=== PATIENT | female | born 1995 | race Caucasian/White ===

== ENCOUNTER → 2017-08-13 12:23 | Outpatient (CLI) | payer MEDICAID, SELFPAY ==
--- NOTE | 2017-08-13 13:00 | MRI_ITS ---
STUDY: MRI BRAIN WITH AND WITHOUT CONTRAST REASON FOR EXAM: Female, 21 years old. 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 TECHNIQUE: Standardized multiplanar fat and water weighted pulse sequences were obtained. 7 ml of Gadavist contrast material was administered intravenously for the contrast portion of the examination. COMPARISON: None. FINDINGS: Normal size of the ventricles and extra-axial spaces for the patient's age. Normal white matter tracts of the supratentorial brain. Normal bilateral basal ganglia. Normal thalami. There is no extra-axial fluid accumulation. Normal flow voids within the major intracranial circulation suggesting patency by spin echo criteria. Normal venous enhancement. There is no enhancing intra-axial or extra-axial abnormality. Normal sella turcica, pituitary gland, infundibular stalk, optic chiasm and hypothalamus. Normal tectal plate and pineal gland. Normal midbrain, bri and medulla. Normal cerebellum. Normal basal cisterns. Normal bilateral temporal bones. Normal bilateral internal auditory canals. IMPRESSION: Normal unenhanced and enhanced MRI of the brain. Electronically Signed: Simon Nails MD at 9:17 EST Tel , Service support , STUDY: MRI ORBITS WITH AND WITHOUT CONTRAST REASON FOR EXAM: Female, 21 years old. 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 TECHNIQUE: Standardized fat and water weighted pulse sequences were obtained in all 3 orthogonal planes, pre-and post contrast administration. 7 ml of Gadavist contrast material was administered intravenously for the contrast portion of the examination. COMPARISON: 08/10/2016 FINDINGS: Normal bilateral globes. The right optic nerve is unremarkable. Again noted is the nonenhancing enlargement of the left optic nerve at the intracanalicular and intracranial segments with involvement of the left optic chiasm. Findings are stable since the prior examination. Normal bilateral intraconal and extraconal spaces. Normal bilateral extraocular muscles. Normal sella turcica, pituitary gland, infundibular stalk, and hypothalamus. Normal bilateral cavernous sinuses. Normal tectal plate and pineal gland. Normal flow voids within the major intracranial circulation suggesting patency by spin echo criteria. Normal size of the ventricles and extra-axial spaces for the patient's age. Normal white matter tracts of the supratentorial brain. Normal bilateral basal ganglia. Normal thalami. There is no extra-axial fluid accumulation. Normal midbrain, bri and medulla. Normal cerebellum. Normal basal cisterns. 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 Electronically Signed: Simon Nails MD at 9:17 EST Tel , Service support ,
== END ==
PROVIDERS: Family Provider Family Medicine; PCP Family Medicine
DX: H47.292 Other optic atrophy, left eye (principal); C72.30 Malignant neoplasm of unspecified optic nerve; Q85.01 Neurofibromatosis, type 1
CPT/HCPCS: 70543; A9585

== ENCOUNTER 2017-10-07 11:39 | Emergency (ER) | payer MEDICAID, SELFPAY ==
[2017-10-07 11:41] VITALS: BP 140/106; PULSE 107; RESP 16; TEMP 36.6; O2SAT 98; BMI 25.0
--- NOTE | 2017-10-07 11:57 | CT_ITS ---
STUDY: CT BRAIN WITHOUT CONTRAST REASON FOR EXAM: Female, 22 years old. DIZZY, LIGHTHEADED, ? SEIZURE RADIATION DOSAGE (If Supplied By Facility): CTDIvol = ( 44.99 ) mGy, DLP = ( 745.49 ) mGycm TECHNIQUE: Transaxial CT imaging of the brain was performed without administration of intravenous contrast material. Individualized dose optimization techniques were used for this CT. COMPARISON: None. FINDINGS: Normal soft tissue structures. Normal calvarium. Normal size ventricles and extra-axial spaces for the patient's age. Normal white matter tracts of the cerebral hemispheres. Normal basal ganglia and thalami. Normal brainstem. Normal cerebellum. There is no intracranial hemorrhage. There are no findings of an acute ischemic infarction. Normal visualized paranasal sinuses. CT/Brain/Head without Contrast IMPRESSION: Normal unenhanced CT scan of the brain. Electronically Signed: Hellen Oneill MD at 13:28 EDT Tel , Service support ,
--- NOTE | 2017-10-07 12:02 | RAD_ITS ---
STUDY: X-RAY - LEFT KNEE REASON FOR EXAM: Female, 22 years old. H/o seizures 2 days prior and pain in left knee since seizure TECHNIQUE: 4 view(s) of the knee. COMPARISON: None. FINDINGS: Normal visualized distal femur. Normal visualized proximal tibia and fibula. Normal proximal tibiofibular articulation. Normal medial femorotibial compartment. Normal lateral femorotibial compartment. Normal patellofemoral articulation. The soft tissue structures are unremarkable. RAD/Knee 4 or More Views IMPRESSION: Normal x-ray examination of the knee. Electronically Signed: Hellen Oneill MD at 13:56 EDT Tel , Service support ,
[2017-10-07 12:26] LABS: Absolute Lymphocyte Count 2.06 X10^3/ul (0.83-4.51); Absolute Neutrophil Count 5.9 X10^3/uL (2.0-7.7); Basophil# 0.05 X10^3/uL; Basophil% 0.5 % (0-1); Eosinophil# 0.12 X10^3/uL; Eosinophils% 1.3 % (0-5); Hemoglobin 16.1 g/dl (12.0-15.0); Lymphocyte # 2.06 X10^3/ul (4.0); Mean Corp Hgb Conc 34.3 g/gl (32-36); Mean Corpuscular Hgb 30.2 pg (27.0-32.0); Mean Corpuscular Volume 88.2 fL (81-99); Mean Platelet Vol. 10.1 fl (6.2-12.0); Monocyte# 1.19 X10^3/uL; Monocyte% 12.7 % (0-10); Platelet Count 221 K/mm3 (150-450); RBC Distribution Width CV 12.9 % (11.6-14.6); RBC Distribution Width SD 41.7 fl (35.1-43.9); Red Blood Count 5.33 M/mm3 (4.2-5.4); White Blood Count 9.4 K/mm3 (4.4-11.0)
[2017-10-07 12:32] LABS: POSITIVE COUNT NO; POSITIVE DIFFERENTIAL NO; POSITIVE MORPHOLOGY NO
[2017-10-07 12:41] LABS: Mucous, Urine 0 SEEN /hpf (<or=2+)
[2017-10-07 12:42] LABS: Anion Gap 8 (5-15); BUN 12 mg/dL (7-18); BUN/Creat Ratio 11.5 RATIO (10-20); Chloride 108 mmol/L (98-107); Creatinine, Serum 1.04 mg/dL (0.55-1.02); EST Glomerular Filtration Rate 70 mL/min (>60); Est Glom Filt Rate - Afr Amer 85 mL/min (>60); Estimated Creatinine Clearance 67.11 ml/min; Glucose 56 mg/dL (74-106); Potassium 3.7 mmol/L (3.5-5.1); Sodium Level 140 mmol/L (136-145)
[2017-10-07 12:43] LABS: Color, Urine Yellow (Yellow); Glucose, Dipstick Normal (Normal); Ketone-Dipstick Negative (Negative); Leukocyte Esterase-Dipstick 25 /ul (Negative); Nitrite-Dipstick Negative (Negative); Occult Blood-Urine 25 /ul (Negative); Protein-Dipstick Negative (Negative); Specific Gravity, Urine 1.015 (1.002-1.030); Urine Bilirubin Dipstick Negative (Negative); Urine Clarity Sl. Cloudy (Clear); Urine Urobilinogen Normal (Normal)
[2017-10-07] MEDS: 0.9% Normal Saline 1,000 ML 150 ML IV (12:44)
[2017-10-07] MEDS: Ondansetron 4 MG/2 ML Vial IV (12:44)
[2017-10-07 12:46] LABS: Pregnancy, Serum, hCG Quali. NEGATIVE Negative (0-9 Nonpreg)
[2017-10-07 12:49] LABS: Amorphous Sediment 2+; Bacteria 1+ /hpf (None Seen); Red Blood Cells-Urine 0-5 SEEN /hpf (0-5); Squamous Epithelial Cells - UA 0-5 SEEN /hpf (5-10); White Blood Cells 0-5 SEEN /hpf (0-5)
[2017-10-07 12:57] LABS: Amphetamine Urine VISTA NEGATIVE (<1000 ng/mL); Barbiturate Urine VISTA NEGATIVE (< 200 ng/mL); Benzodiazepine Urine VISTA POSITIVE (< 200 ng/mL); Cocaine Urine VISTA NEGATIVE (< 300 ng/mL); Ecstacy Urine VISTA NEGATIVE (< 500 ng/mL); Methadone Urine VISTA NEGATIVE (< 300 ng/mL); PCP Urine VISTA NEGATIVE (< 25 ng/mL); THC Urine VISTA NEGATIVE (< 50 ng/mL); Vista UDS pH Range 7
[2017-10-07] MEDS: proMETHazine 25 MG/ML Syringe 12.5 MG IV (14:10)
[2017-10-07 14:21] LABS: Bedside Glucose 91 mg/dL (70-110)
[2017-10-07 14:31] LABS: Chlamydia Trachomatis by PCR Negative (Negative); Neisserai gonorrhoeae by PCR Negative (Negative); Probe Check PASS; Sample Adequacy Control PASS; Specimen Processing Control PASS
[2017-10-07 14:38] VITALS: BP 121/79; PULSE 64; RESP 15; O2SAT 99
[2017-10-07] MEDS: Acetaminophen 500 MG Tablet 1000 MG PO (14:46)
--- NOTE | 2017-10-07 15:25 | ED.DCSUM_ITS ---
- ER Visit Summary Date of Service: 10/07/17 Chief Complaint: Possible seizure History of Present Illness: The patient is a 22 F with a history of neurofibromatosis. Patient reports that her friends came to her house 2 days ago and states that she was shaking all over and having a seizure. Patient had vomited and urinated on herself. She states they showered her off and left her at home alone with a 3-year-old. Patient states she had decreased energy the last 2 days and continues to feel nauseated. Complaint of pain to her left knee. Nursing staff reports she walks into the ER drinking iced coffee without difficulty. Physical Examination: Vital signs are unremarkable. Patient sitting upright in bed no acute distress. Head neck examination is unremarkable. Heart is regular rate and rhythm. Lung sounds are clear. Abdomen is soft nontender. Extremity examination does reveal medial left knee tenderness. There is no obvious effusion. She has normal range of motion. She has some abrasions noted to the extensor surface of the right elbow without bony tenderness. Neuro exam reveals normal strength and sensation throughout. Test Results: Left knee x-rays are unremarkable. CT head is normal. CBC was a hemoglobin is 16.1. Chemistry studies are significant for glucose of 56. Urinalysis is normal. Patency test negative. Tox screen is positive for benzos. Emergency Department Course and Treatment: Patient was given Zofran. She felt slightly shaky and with her blood sugar only being 56 she was given orange juice , cheese stick, and a sandwich. Patient states that she felt nauseated after eating that and was given a dose of Phenergan. Repeat BGT is 91. I spoke with Dr. Stock, as the patient does follow with Dr. Bryant. He asked that we patient on Keppra 500 mg twice daily. She is to follow-up in the office as an outpatient. Treatment Plan: [] Disposition: Discharge Impression: 1. Reported seizure 2. History of neurofibromatosis This note was generated with [employer] dictation software. It may contain incorrect words, spelling, and punctuation that were not noted in review of the chart prior to signing ED Disposition - Plan for ED Patient: Chief Complaint: General Illness Referrals: Olvin Dickey [Primary Care Provider] -
--- NOTE | 2017-10-07 15:26 | ED.DEP ---
ED Disposition - Plan for ED Patient: Disposition: Home or Assisted Living Chief Complaint: General Illness Instructions: ED Seizure New Onset Unk Cause Prescriptions: levETIRAcetam tablet [Keppra tablet] 500 mg PO BID #60 tablet Referrals: Wili Stock MD [STAFF PHYSICIAN] - As soon as possible
[2017-10-07] MEDS: levETIRAcetam 500 MG Tablet PO (15:49)
== END 2017-10-07 16:06 | disposition home or self-care (01) ==
PROVIDERS: Emergency Provider Emergency Medicine; Family Provider Family Medicine; PCP Family Medicine
DX: R56.9 Unspecified convulsions (principal); Q85.00 Neurofibromatosis, unspecified; M25.562 Pain in left knee; G43.909 Migraine, unspecified, not intractable, without status migrainosus; Z79.899 Other long term (current) drug therapy
CPT/HCPCS: 70450; 73564; 80048; 80307; 81001; 82962; 84703; 85025; 87491; 87591; 96361; 96374; 96375; 99284; J7030; A4216; J2405

== ENCOUNTER → 2017-10-18 15:19 | Outpatient (CLI) | payer MEDICAID, SELFPAY ==
[2017-10-18 17:13] LABS: Hematocrit 43.5 % (37-47); Hemoglobin 14.7 g/dl (12.0-15.0); Mean Corp Hgb Conc 33.8 g/gl (32-36); Mean Corpuscular Hgb 30.1 pg (27.0-32.0); Mean Corpuscular Volume 89.1 fL (81-99); Mean Platelet Vol. 11.2 fl (6.2-12.0); Platelet Count 216 K/mm3 (150-450); RBC Distribution Width CV 12.7 % (11.6-14.6); RBC Distribution Width SD 41.3 fl (35.1-43.9); Red Blood Count 4.88 M/mm3 (4.2-5.4); White Blood Count 7.7 K/mm3 (4.4-11.0)
[2017-10-18 17:19] LABS: Scan Indicated on CBC? Y/N NO
[2017-10-18 17:34] LABS: Hemoglobin A1c 4.7 % (4.2-6.3)
[2017-10-18 17:45] LABS: ALB/GLOB Ratio 1.3 RATIO (0.9-2.4); AST(SGOT) 18 U/L (15-37); Alanine Aminotransfer ALT/SGPT 16 U/L (13-56); Albumin, Serum 4.3 g/dL (3.2-5.0); Alkaline Phosphatase 62 U/L (45-117); Anion Gap 6 (5-15); BUN 7 mg/dL (7-18); BUN/Creat Ratio 9.4 RATIO (10-20); Calcium,Total 8.6 mg/dL (8.5-10.1); Chloride 111 mmol/L (98-107); Creatinine, Serum 0.75 mg/dL (0.55-1.02); EST Glomerular Filtration Rate 103 mL/min (>60); Est Glom Filt Rate - Afr Amer 125 mL/min (>60); Globulin 3.4 g/dL (2.2-4.2); Glucose 72 mg/dL (74-106); Potassium 3.7 mmol/L (3.5-5.1); Protein, Total 7.7 g/dL (6.4-8.2); Sodium Level 143 mmol/L (136-145); Thyroid Stim Hormone (TSH) 0.51 uIU/mL (0.358-3.74)
[2017-10-23 11:54] LABS: C-Peptide 1.9 ng/mL (1.1-4.4); KEPPRA (LEVETIRACETAM) 17.6 ug/mL (10.0-40.0)
== END ==
PROVIDERS: Family Provider Family Medicine; PCP Family Medicine; Visit Provider Family Medicine
DX: E16.2 Hypoglycemia, unspecified (principal); G40.409 Other generalized epilepsy and epileptic syndromes, not intractable, without status epilepticus
CPT/HCPCS: 80053; 80177; 83036; 84443; 84681; 85027

== ENCOUNTER 2017-11-09 23:19 | Emergency (ER) | payer MEDICAID, SELFPAY ==
[2017-11-09 23:20] VITALS: BP 136/90; PULSE 99; RESP 16; TEMP 36.9; O2SAT 99; BMI 26.5
--- NOTE | 2017-11-09 23:38 | ED.DCSUM_ITS ---
- ER Visit Summary Date of Service: 11/09/17 Chief Complaint: Seizure History of Present Illness: The patient is a 22 F with history of neurofibromatosis and new diagnosis of seizures presents to the emergency department with recurrent seizure. Patient states that she was seen here about a month ago. At that time she did have a seizure. She had an evaluation which is unremarkable. The patient was started on Keppra 500 mg twice a day. She states that she feels like the medication is making her more fatigued. Over the past 3 days, she has had some urinary frequency and flank pain. She thinks that she is also had 5 seizures. She states that she knows when they are going to happen. She states that she starts to shake and she is aware of it. Her friend witnessed it. They do not think that she lost consciousness. However, few days ago she also fell when she was getting up off the toilet and struck her head. The patient is scheduled to see neurology at [facility] on . She does follow with Dr. Silvana Moore here in the area, but has been unable to get him to see him. The patient is also on Topamax and Valium. Physical Examination: Vital signs reviewed General: Well-nourished, well-developed Head: Normocephalic, atraumatic Eyes: Pupils equal and reactive, extraocular muscles intact Neck, supple, no lymphadenopathy Heart: Regular rate and rhythm Respiratory: No distress, clear bilaterally Abdomen: Soft, nontender, nondistended, no peritoneal signs Back: Nontender Extremities: Nontender, no edema, no cords Skin: Normal color no rash Neuro: Alert and oriented, no focal or lateralizing deficits Test Results: [] Emergency Department Course and Treatment: It was difficult to determine if the patient was actually having breakthrough seizures versus pseudoseizure. She had no real loss of consciousness. She states that she did strike her head when she got up from the toilet 3 days ago and has had headaches since. She also has a history of migraine. I did obtain a head CT which is unremarkable. I discussed the patient with Dr. Stock. At this time, we are going to increase her Keppra to 750 mg twice a day. He did state that if she was having such frequent seizures, he would expect that her CPK will be elevated. This was normal. Her labs are unremarkable. Her urine shows no infection. She is not . She has been having some intermittent abdominal cramping. I am unsure if this is related to her medication change. Her abdomen is benign on examination. The patient will have her Keppra increased. I will start her on Bentyl for her abdominal cramping. She has follow-up in place next week at the [facility] for neurology. I do for this patient can safely be discharged. She has had no further seizure activity here. She will be discharged home. Treatment Plan: [] Disposition: Discharge Impression: 1. Breakthrough seizure 2. Abdominal cramping This note was generated with [employer] dictation software. It may contain incorrect words, spelling, and punctuation that were not noted in review of the chart prior to signing ED Disposition - Plan for ED Patient: Chief Complaint: Seizure Instructions: ED Seizure Recurrent Prescriptions: Dicyclomine HCl [Bentyl] 20 mg PO TIDAC #20 cap Levetiracetam [Keppra] 750 mg PO BID #60 tab Referrals: Olvin Dickey MD [Primary Care Provider] -
[2017-11-09 23:49] LABS: Absolute Lymphocyte Count 2.61 X10^3/ul (0.83-4.51); Absolute Neutrophil Count 5.4 X10^3/uL (2.0-7.7); Basophil# 0.03 X10^3/uL; Basophil% 0.3 % (0-1); Eosinophil# 0.17 X10^3/uL; Eosinophils% 1.9 % (0-5); Hematocrit 41.5 % (37-47); Hemoglobin 13.7 g/dl (12.0-15.0); Lymphocyte # 2.61 X10^3/ul (4.0); Lymphocyte % 28.5 % (19-41); Mean Corpuscular Hgb 29.5 pg (27.0-32.0); Mean Corpuscular Volume 89.4 fL (81-99); Mean Platelet Vol. 10.4 fl (6.2-12.0); Monocyte# 0.89 X10^3/uL; Monocyte% 9.7 % (0-10); Neutrophil # 5.43 X10^3/uL (2.7-7.7); Neutrophil % 59.3 % (47-70); Platelet Count 202 K/mm3 (150-450); RBC Distribution Width CV 13.3 % (11.6-14.6); Red Blood Count 4.64 M/mm3 (4.2-5.4); White Blood Count 9.2 K/mm3 (4.4-11.0)
[2017-11-09 23:50] LABS: POSITIVE COUNT NO; POSITIVE DIFFERENTIAL NO; POSITIVE MORPHOLOGY NO
[2017-11-09] MEDS: DiphenhydrAMINE 50 MG/ML Syringe 25 MG IV (23:53)
[2017-11-09] MEDS: 0.9% Normal Saline 1,000 ML 1000 ML IV (23:53)
[2017-11-09] MEDS: Ketorolac 30 MG/ML Syringe IV (23:54)
[2017-11-10 00:05] LABS: ALB/GLOB Ratio 1.4 RATIO (0.9-2.4); AST(SGOT) 14 U/L (15-37); Alanine Aminotransfer ALT/SGPT 15 U/L (13-56); Albumin, Serum 4.2 g/dL (3.2-5.0); Alkaline Phosphatase 56 U/L (45-117); Anion Gap 7 (5-15); BUN 10 mg/dL (7-18); BUN/Creat Ratio 14.1 RATIO (10-20); Calcium,Total 8.9 mg/dL (8.5-10.1); Chloride 111 mmol/L (98-107); Creatinine, Serum 0.71 mg/dL (0.55-1.02); EST Glomerular Filtration Rate 110 mL/min (>60); Est Glom Filt Rate - Afr Amer 133 mL/min (>60); Estimated Creatinine Clearance 89.27 ml/min; Glucose 85 mg/dL (74-106); Lipase 198 U/L (73-393); Potassium 3.9 mmol/L (3.5-5.1); Protein, Total 7.2 g/dL (6.4-8.2); Sodium Level 142 mmol/L (136-145)
[2017-11-10] MEDS: Ondansetron 4 MG/2 ML Vial IV (00:27)
[2017-11-10 00:30] LABS: CPK Total, Creatine Kinase 132 U/L (26-192)
[2017-11-10 00:37] LABS: Bacteria 0 SEEN /hpf (None Seen); Mucous, Urine 0 SEEN /hpf (<or=2+)
[2017-11-10 00:38] LABS: Color, Urine Yellow (Yellow); Glucose, Dipstick Normal (Normal); Ketone-Dipstick Negative (Negative); Leukocyte Esterase-Dipstick 25 /ul (Negative); Nitrite-Dipstick Negative (Negative); Occult Blood-Urine 150 /ul (Negative); Protein-Dipstick Negative (Negative); Urine Bilirubin Dipstick Negative (Negative); Urine Clarity Sl. Cloudy (Clear); Urine Urobilinogen Normal (Normal)
[2017-11-10 00:41] LABS: Internal QC Validated? YES +Cl - CLEAR BKGD; Pregnancy, Urine Negative Negative
[2017-11-10 00:46] LABS: Amorphous Sediment 1+; Red Blood Cells-Urine 0-5 SEEN /hpf (0-5); Squamous Epithelial Cells - UA 0-5 SEEN /hpf (5-10); Transitional Epithelial - Ur 0 SEEN /hpf (0-5); White Blood Cells 0-5 SEEN /hpf (0-5)
[2017-11-10 01:06] VITALS: BP 124/87; PULSE 74; RESP 14; O2SAT 98
--- NOTE | 2017-11-10 23:34 | CT_ITS ---
CT Head or Brain W/O Contrast INDICATION: SEIZURES FOR PAST 2 DAYS,HEADACHE,SHAKES,ELEVATED BP,SHIELDEDHX:SEIZURES,MIGRAINES COMPARISON: October 07, 2017 TECHNIQUE: Noncontrast axial CT examination of the brain. Radiation dose optimization applied. FINDINGS: The ventricular system is normal in size and symmetric. The cortical sulci, sylvian fissures, and basal cisterns are well seen. The melissa-white matter junction is distinct. There is no evidence of acute intracranial hemorrhage, mass effect, midline shift, or abnormal extra-axial collection. The calvarium is intact and the visualized paranasal sinuses and mastoid air cells are clear. CT/Brain/Head without Contrast IMPRESSION: No evidence of acute intracranial abnormality by noncontrast CT. In case of unexplained seizures, further evaluation with MRI may be helpful. at 0043 Reported and signed by: Jessenia Tomlinson MD Electronically Signed: Jessenia Tomlinson MD at 0:41 EDT Tel , Service support ,
== END 2017-11-10 01:06 | disposition home or self-care (01) ==
LOC: ED 23:52
PROVIDERS: Emergency Provider Emergency Medicine; Family Provider Family Medicine; PCP Family Medicine
DX: R56.9 Unspecified convulsions (principal); R10.9 Unspecified abdominal pain; Z79.899 Other long term (current) drug therapy
CPT/HCPCS: 70450; 80053; 81001; 81025; 82550; 83690; 85025; 96361; 96374; 96375; 99284; A4216

== ENCOUNTER 2017-11-20 22:41 | Emergency (ER) | payer MEDICAID, SELFPAY ==
[2017-11-20 22:43] VITALS: BP 172/124; PULSE 93; RESP 17; TEMP 37.2; O2SAT 97; BMI 25.4
[2017-11-20 22:47] VITALS: BP 166/99
[2017-11-20] MEDS: Ondansetron 4 MG/2 ML Vial IV (23:32)
[2017-11-20] MEDS: 0.9% Normal Saline 1,000 ML 125 ML IV (23:32)
[2017-11-20 23:42] LABS: Absolute Lymphocyte Count 2.52 X10^3/ul (0.83-4.51); Absolute Neutrophil Count 5.3 X10^3/uL (2.0-7.7); Basophil# 0.04 X10^3/uL; Basophil% 0.4 % (0-1); Eosinophils% 1.1 % (0-5); Hematocrit 39.9 % (37-47); Hemoglobin 13.6 g/dl (12.0-15.0); Lymphocyte # 2.52 X10^3/ul (4.0); Lymphocyte % 28.3 % (19-41); Mean Corp Hgb Conc 34.1 g/gl (32-36); Mean Corpuscular Hgb 30.6 pg (27.0-32.0); Mean Corpuscular Volume 89.9 fL (81-99); Mean Platelet Vol. 10.6 fl (6.2-12.0); Monocyte% 10.1 % (0-10); Neutrophil # 5.31 X10^3/uL (2.7-7.7); Neutrophil % 59.9 % (47-70); Platelet Count 204 K/mm3 (150-450); RBC Distribution Width CV 13.8 % (11.6-14.6); RBC Distribution Width SD 44.7 fl (35.1-43.9); Red Blood Count 4.44 M/mm3 (4.2-5.4); White Blood Count 8.9 K/mm3 (4.4-11.0)
[2017-11-20 23:43] LABS: POSITIVE COUNT NO; POSITIVE DIFFERENTIAL NO; POSITIVE MORPHOLOGY NO
[2017-11-20 23:58] LABS: ALB/GLOB Ratio 1.5 RATIO (0.9-2.4); AST(SGOT) 14 U/L (15-37); Alanine Aminotransfer ALT/SGPT 16 U/L (13-56); Albumin, Serum 4.2 g/dL (3.2-5.0); Alkaline Phosphatase 51 U/L (45-117); Anion Gap 7 (5-15); BUN 6 mg/dL (7-18); Calcium,Total 8.7 mg/dL (8.5-10.1); Chloride 111 mmol/L (98-107); Creatinine, Serum 0.67 mg/dL (0.55-1.02); EST Glomerular Filtration Rate 117 mL/min (>60); Est Glom Filt Rate - Afr Amer 142 mL/min (>60); Estimated Creatinine Clearance 99.39 ml/min; Globulin 2.8 g/dL (2.2-4.2); Glucose 84 mg/dL (74-106); Lipase 141 U/L (73-393); Potassium 3.7 mmol/L (3.5-5.1); Sodium Level 144 mmol/L (136-145)
[2017-11-21 00:04] LABS: Pregnancy, Serum, hCG Quali. NEGATIVE Negative (0-9 Nonpreg)
--- NOTE | 2017-11-21 00:18 | CT_ITS ---
STUDY: CT ABDOMEN AND PELVIS WITHOUT CONTRAST REASON FOR EXAM: Female, 22 years old. Abdominal pain, nausea and vomiting, elevated blood pressure RADIATION DOSAGE (If Supplied By Facility): CTDIvol = ( 6.16 ) mGy, DLP = ( 289.37 ) mGycm TECHNIQUE: Transaxial 2.5 mm images were obtained from the dome of the diaphragm to the symphysis pubis without oral contrast, and without intravenous contrast. Sagittal and coronal images were reconstructed. This examination is limited for the evaluation of gastrointestinal, solid organs and vascular structures due to the lack of intravenous and oral contrast. Individualized dose optimization techniques were used for this CT. COMPARISON: None. FINDINGS: The visualized lung bases are unremarkable. The visualized portions of the heart are within normal limits. Normal liver. Normal gallbladder and extrahepatic biliary system. Normal spleen. There is a splenule. Normal pancreas. Normal bilateral adrenal glands. Normal right kidney. Normal left kidney. Normal visualized stomach. Normal small intestine. Normal colon. The appendix is visualized and appears normal. Image [id number] series 2. Normal abdominal aorta. Normal inferior vena cava. Normal retroperitoneum. Decompressed urinary bladder. Normal visualized uterus and adnexa. Normal abdominal wall. Normal osseous structures. CT/Abdomen/Pelvis without Cont IMPRESSION: There is no acute abdomen and pelvic pathology. Electronically Signed: Rosa Maria Hanna MD at 1:03 EDT , Service support ,
[2017-11-21 00:33] LABS: Color, Urine Yellow (Yellow); Glucose, Dipstick Normal (Normal); Ketone-Dipstick 5 mg/dl (Negative); Leukocyte Esterase-Dipstick 500 /ul (Negative); Nitrite-Dipstick Negative (Negative); Occult Blood-Urine 50 /ul (Negative); Protein-Dipstick Negative (Negative); Specific Gravity, Urine 1.025 (1.002-1.030); Urine Bilirubin Dipstick Negative (Negative); Urine Clarity Clear (Clear); Urine Urobilinogen 1 mg/dl (Normal)
[2017-11-21 00:38] LABS: Mucous, Urine 1+ /hpf (<or=2+); Red Blood Cells-Urine 0-5 SEEN /hpf (0-5); Squamous Epithelial Cells - UA 0-5 SEEN /hpf (5-10); White Blood Cells 10-25 SEEN /hpf (0-5)
[2017-11-21 00:39] LABS: Bacteria RARE /hpf (None Seen)
[2017-11-21 00:57] VITALS: BP 142/87; PULSE 96; RESP 15; O2SAT 96
--- NOTE | 2017-11-21 01:08 | ED.VISSUMM ---
- ER Visit Summary Date of Service: 11/21/17 Chief Complaint: [Abdominal pain History of Present Illness: The patient is a 22 F [presents to the emergency department complaint of abdominal discomfort for about 2-3 weeks. Patient states that around noon she ate a [employer] a chicken sandwich and since then she did not been feeling well. Patient planes of nausea. Patient this evening was at [email or web address] again using their Wi-Fi when she began feeling nauseated and lightheaded. Patient presents the ER for evaluation. Patient states that she had her Keppra dose increased about 2 weeks ago she is not sure if that has something to do with her symptoms. Patient does have a history of seizure disorder and migraines. Patient denies urinary symptoms. Patient thinks it is possible she might be although she does take the Depakote shot every 3 months and has not had a period in years. Patient denies fever at home.] Physical Examination: HEENT-PERRLA, EOMI. Cranial nerves II through XII grossly intact. TMs clear. Mucous membranes moist. No adenopathy. Cardiovascular-regular rate and rhythm without murmur or ectopy Lungs-clear to auscultation, chest wall stable without crepitus or subcu emphysema Abdomen-normoactive bowel sounds, soft. Mild diffuse tenderness. There is no rebound, rigidity, or perineal signs. Negative Monroe sign. Extremities-intact ?4, normal range of motion, normal pulses, atraumatic[] Test Results: [CBC with differential obtained showed a white count of 8.9, hemoglobin 13.6, hematocrit 40, platelets 204. Chemistries unremarkable. LFTs were normal. Lipase was 141. Urinalysis positive for 500 leukocyte esterase and 10-25 WBCs as well as rare bacteria. HCG was negative. CT flank showed nothing acute.] Emergency Department Course and Treatment: [Patient was started on Bactrim and given Zofran in the emergency department.] Treatment Plan: [Patient will be given a perception for Bactrim and Zofran] patient also will be started on Prevacid. Disposition: [Discharged home in stable condition] Impression: [Abdominal pain-etiology uncertain UTI] This note was generated with [employer] software. It may contain incorrect words, spelling, and punctuation that were not noted in review of the chart prior to signing ED Disposition - Plan for ED Patient: Chief Complaint: Abd Pain Referrals: Olvin Dickey MD [Primary Care Provider] -
--- NOTE | 2017-11-21 01:11 | ED.DCSUM_ITS ---
- ER Visit Summary Date of Service: 11/21/17 Chief Complaint: [Abdominal pain History of Present Illness: The patient is a 22 F [presents to the emergency department complaint of abdominal discomfort for about 2-3 weeks. Patient states that around noon she ate a [employer] a chicken sandwich and since then she did not been feeling well. Patient planes of nausea. Patient this evening was at [employer] again using their Wi-Fi when she began feeling nauseated and lightheaded. Patient presents the ER for evaluation. Patient states that she had her Keppra dose increased about 2 weeks ago she is not sure if that has something to do with her symptoms. Patient does have a history of seizure disorder and migraines. Patient denies urinary symptoms. Patient thinks it is possible she might be although she does take the Depakote shot every 3 months and has not had a period in years. Patient denies fever at home.] Physical Examination: HEENT-PERRLA, EOMI. Cranial nerves II through XII grossly intact. TMs clear. Mucous membranes moist. No adenopathy. Cardiovascular-regular rate and rhythm without murmur or ectopy Lungs-clear to auscultation, chest wall stable without crepitus or subcu emphysema Abdomen-normoactive bowel sounds, soft. Mild diffuse tenderness. There is no rebound, rigidity, or perineal signs. Negative Monroe sign. Extremities-intact ?4, normal range of motion, normal pulses, atraumatic[] Test Results: [CBC with differential obtained showed a white count of 8.9, hemoglobin 13.6, hematocrit 40, platelets 204. Chemistries unremarkable. LFTs were normal. Lipase was 141. Urinalysis positive for 500 leukocyte esterase and 10-25 WBCs as well as rare bacteria. HCG was negative. CT flank showed nothing acute.] Emergency Department Course and Treatment: [Patient was started on Bactrim and given Zofran in the emergency department.] Treatment Plan: [Patient will be given a perception for Bactrim and Zofran] patient also will be started on Prevacid. Disposition: [Discharged home in stable condition] Impression: [Abdominal pain-etiology uncertain UTI] This note was generated with [employer] software. It may contain incorrect words, spelling, and punctuation that were not noted in review of the chart prior to signing ED Disposition - Plan for ED Patient: Chief Complaint: Abd Pain Referrals: Olvin Dickey MD [Primary Care Provider] -
--- NOTE | 2017-11-21 01:11 | ED.DEP ---
ED Disposition - Plan for ED Patient: Chief Complaint: Abd Pain Instructions: ED Abdominal Pain Unkn Cause, ED UTI Cystitis Female Prescriptions: Ondansetron [Zofran Odt] 4 mg PO Q8H PRN PRN #10 tab PRN Reason: Nausea Lansoprazole [Prevacid] 30 mg PO DAILY #30 cap Smz/Tmp Ds [Bactrim Ds] 1 tab PO BID #6 tab Referrals: Olvin Dickey MD [Primary Care Provider] - 3-5 Days
[2017-11-21 01:26] VITALS: BP 138/97; PULSE 92; RESP 15; O2SAT 99
[2017-11-21] MEDS: Smz/Tmp Ds Tablet 1 TABLET PO (01:26)
== END 2017-11-21 01:34 | disposition home or self-care (01) ==
LOC: ED 23:28
PROVIDERS: Emergency Provider Emergency Medicine; Family Provider Family Medicine; PCP Family Medicine
DX: N39.0 Urinary tract infection, site not specified (principal); R10.84 Generalized abdominal pain; G40.909 Epilepsy, unspecified, not intractable, without status epilepticus; G43.909 Migraine, unspecified, not intractable, without status migrainosus; Z79.899 Other long term (current) drug therapy; Z72.0 Tobacco use
CPT/HCPCS: 74176; 80053; 81001; 83690; 84703; 85025; 96361; 96374; 99285; J7030; J2405

== ENCOUNTER 2017-12-09 01:37 | Emergency (ER) | payer MEDICAID, SELFPAY ==
--- NOTE | 2017-12-09 01:37 | DT_ITS ---
This patient was seen during an EMR downtime December 09, 2017 - December 16, 2017. This patient may have a combination of paper and electronic documentation or all paper documentation. All documentation is viewable within the e-chart portion of [id number] for each patient visit.
[2017-12-09 01:38] VITALS: BP 161/108; PULSE 97; RESP 17; TEMP 37; O2SAT 98; BMI 24.5
--- NOTE | 2017-12-09 01:47 | CT_ITS ---
STUDY: CT ABDOMEN AND PELVIS WITHOUT CONTRAST REASON FOR EXAM: Female, 22 years old. Abdominal and back pain, nausea and vomiting x2 months. RADIATION DOSAGE (If Supplied By Facility): CTDIvol = ( 6.19 ) mGy, DLP = ( 302.88 ) mGycm TECHNIQUE: Transaxial 2.5 mm images were obtained from the dome of the diaphragm to the symphysis pubis without oral contrast, and without intravenous contrast. Sagittal and coronal images were reconstructed. This examination is limited for the evaluation of gastrointestinal, solid organs and vascular structures due to the lack of intravenous and oral contrast. Individualized dose optimization techniques were used for this CT. COMPARISON: CT abdomen pelvis 11/21/2017. FINDINGS: The visualized lung bases are unremarkable. The visualized portions of the heart are within normal limits. Normal liver. Normal gallbladder and extrahepatic biliary system. Normal spleen. Normal pancreas. Normal bilateral adrenal glands. Normal right kidney. Normal left kidney. There is no obstructive uropathy, obstructive renal or ureteral calculi. Normal visualized stomach. Fluid-filled small bowel without fold wall thickening or significant dilatation. Normal colon. The appendix is visualized and appears normal. Image 34 series 601 Normal abdominal aorta. Normal inferior vena cava. Normal retroperitoneum. Normal urinary bladder. Normal visualized uterus and adnexa Normal abdominal wall. Normal osseous structures. CT/Abdomen/Pelvis without Cont IMPRESSION: There is no acute abdomen and pelvic pathology. There is no significant interval change. Electronically Signed: Rosa Maria Hanna MD at 3:24 EDT , Service support ,
[2017-12-09] MEDS: Morphine 4 MG/ML Syringe IV (01:59)
[2017-12-09] MEDS: proMETHazine 25 MG/ML Syringe 6.25 MG IV (01:59)
[2017-12-09] MEDS: 0.9% Normal Saline 1,000 ML 1000 ML IV (01:59)
[2017-12-09 02:11] LABS: Absolute Lymphocyte Count 2.12 X10^3/ul (0.83-4.51); Absolute Neutrophil Count 6.5 X10^3/uL (2.0-7.7); Basophil# 0.04 X10^3/uL; Basophil% 0.4 % (0-1); Eosinophil# 0.08 X10^3/uL; Eosinophils% 0.8 % (0-5); Hematocrit 42.5 % (37-47); Hemoglobin 14.4 g/dl (12.0-15.0); Lymphocyte # 2.12 X10^3/ul (4.0); Lymphocyte % 21.6 % (19-41); Mean Corp Hgb Conc 33.9 g/gl (32-36); Mean Corpuscular Hgb 30.4 pg (27.0-32.0); Mean Corpuscular Volume 89.7 fL (81-99); Mean Platelet Vol. 10.9 fl (6.2-12.0); Monocyte# 1.08 X10^3/uL; Neutrophil # 6.47 X10^3/uL (2.7-7.7); Platelet Count 207 K/mm3 (150-450); RBC Distribution Width CV 13.3 % (11.6-14.6); RBC Distribution Width SD 43.5 fl (35.1-43.9); Red Blood Count 4.74 M/mm3 (4.2-5.4); White Blood Count 9.8 K/mm3 (4.4-11.0)
[2017-12-09 02:12] LABS: POSITIVE COUNT NO; POSITIVE DIFFERENTIAL NO; POSITIVE MORPHOLOGY NO
[2017-12-09 02:13] LABS: Bacteria 0 SEEN /hpf (None Seen)
[2017-12-09 02:15] LABS: Color, Urine Yellow (Yellow); Glucose, Dipstick Normal (Normal); Ketone-Dipstick Negative (Negative); Leukocyte Esterase-Dipstick 500 /ul (Negative); Nitrite-Dipstick Negative (Negative); Occult Blood-Urine 150 /ul (Negative); Protein-Dipstick 15 mg/dl (Negative); Specific Gravity, Urine 1.025 (1.002-1.030); Urine Bilirubin Dipstick Negative (Negative); Urine Clarity Clear (Clear); Urine Urobilinogen Normal (Normal)
[2017-12-09 02:18] LABS: ALB/GLOB Ratio 1.4 RATIO (0.9-2.4); AST(SGOT) 14 U/L (15-37); Alanine Aminotransfer ALT/SGPT 16 U/L (13-56); Albumin, Serum 4.2 g/dL (3.2-5.0); Alkaline Phosphatase 57 U/L (45-117); Anion Gap 8 (5-15); BUN 7 mg/dL (7-18); BUN/Creat Ratio 10.8 RATIO (10-20); Calcium,Total 8.5 mg/dL (8.5-10.1); Chloride 109 mmol/L (98-107); Creatinine, Serum 0.65 mg/dL (0.55-1.02); EST Glomerular Filtration Rate 121 mL/min (>60); Est Glom Filt Rate - Afr Amer 147 mL/min (>60); Estimated Creatinine Clearance 102.44 ml/min; Glucose 99 mg/dL (74-106); Lipase 114 U/L (73-393); Potassium 3.6 mmol/L (3.5-5.1); Protein, Total 7.2 g/dL (6.4-8.2); Sodium Level 140 mmol/L (136-145)
[2017-12-09 02:21] LABS: Pregnancy, Serum, hCG Quali. NEGATIVE Negative (0-9 Nonpreg)
[2017-12-09 02:22] LABS: Mucous, Urine 2+ /hpf (<or=2+); Red Blood Cells-Urine 0-5 SEEN /hpf (0-5); Squamous Epithelial Cells - UA > 100 SEEN /hpf (5-10); White Blood Cells 10-25 SEEN /hpf (0-5)
[2017-12-09 03:12] VITALS: BP 151/99; PULSE 92; RESP 16; O2SAT 97
--- NOTE | 2017-12-09 03:36 | ED.DCSUM_ITS ---
- ER Visit Summary Date of Service: 12/09/17 Chief Complaint: [] Abdominal pain History of Present Illness: The patient is a 22 F [] complaining of bilateral lower quadrant abdominal pain. Reports the pain was diffuse prior to arrival. Reports nausea and vomiting. Denies hematemesis. Denies likelihood of . Reports past medical history of seizure disorder, neurofibromatosis, anxiety, depression, migraine headaches. Physical Examination: [] Afebrile, vital signs stable. 22-year-old female no acute distress. Cardiovascular exam is regular rate and rhythm. Lungs are clear to auscultation. Abdomen is soft with mild diffuse tenderness. No guarding rebound noted. Test Results: [] CBC, BMP, LFTs, lipase all within normal limits. HCG negative. CT of the abdomen pelvis without contrast is negative. Emergency Department Course and Treatment: [] Patient given intravenous morphine, Phenergan, fluids. On serial exam she required 1 additional dose of pain medication. Her laboratory and diagnostic workup were negative and she was encouraged to follow with her primary care physician. Treatment Plan: [] Follow-up with primary care physician. Disposition: [] Discharge, stable. Impression: [] Abdominal pain, unknown etiology This note was generated with [employer] dictation software. It may contain incorrect words, spelling, and punctuation that were not noted in review of the chart prior to signing ED Disposition - Plan for ED Patient: Chief Complaint: Abd Pain Referrals: Olvin Dickey MD [Primary Care Provider] -
--- NOTE | 2017-12-09 03:36 | ED.DEP ---
ED Disposition - Plan for ED Patient: Disposition: Home or Assisted Living Chief Complaint: Abd Pain Instructions: ED Abdominal Pain Unkn Cause Referrals: Olvin Dickey MD [Primary Care Provider] -
[2017-12-09] MEDS: Morphine 2 MG/ML Syringe IV (03:48)
[2017-12-09 03:54] VITALS: BP 156/82; PULSE 100; RESP 16; O2SAT 97
== END 2017-12-09 03:55 | disposition home or self-care (01) ==
PROVIDERS: Emergency Provider Emergency Medicine; Family Provider Family Medicine; PCP Family Medicine
DX: R10.84 Generalized abdominal pain (principal); G40.909 Epilepsy, unspecified, not intractable, without status epilepticus; F41.9 Anxiety disorder, unspecified; F32.9 Major depressive disorder, single episode, unspecified; G43.909 Migraine, unspecified, not intractable, without status migrainosus; Q85.00 Neurofibromatosis, unspecified; Z79.899 Other long term (current) drug therapy
CPT/HCPCS: 74176; 80053; 81001; 83690; 84703; 85025; 99282; J7030; A4216

== ENCOUNTER 2017-12-29 01:56 | Emergency (ER) | payer MEDICAID, SELFPAY ==
[2017-12-29 01:57] VITALS: BP 144/92; PULSE 96; RESP 16; TEMP 36.7; O2SAT 99; BMI 25.1
[2017-12-29] MEDS: 0.9% Normal Saline 1,000 ML 1000 ML IV (02:58)
[2017-12-29] MEDS: Metoclopramide 10 MG/2 ML Vial IV (02:59)
[2017-12-29] MEDS: Ketorolac 30 MG/ML Syringe IV (03:00)
[2017-12-29 03:49] VITALS: PULSE 87; RESP 16; O2SAT 97
[2017-12-29 03:55] VITALS: BP 147/103; PULSE 72; RESP 15; O2SAT 98
--- NOTE | 2017-12-29 04:15 | ED.VISSUMM ---
- ER Visit Summary Date of Service: 12/29/17 Chief Complaint: [Headache] History of Present Illness: The patient is a 22 F [presents to the emergency department with complaint of a headache that started earlier today. Patient states she has a history of chronic migraines and sees Dr. Bryant] of neurology. Patient gets Botox injections and has missed her last appointment. Patient describes diffuse headache with photophobia and nausea that is typical of her migraines. Patient also states that she feels slightly short of breath and she thinks may be related to her anxiety and history of asthma. Patient denies any falls or head injuries. Patient denies any fever. Patient has not had any significant cough. Physical Examination: [HEENT-PERRLA, EOMI. Cranial nerves II through XII grossly intact. TMs clear. Mucous membranes moist. No adenopathy. Cardiovascular-regular rate and rhythm without murmur or ectopy Lungs-clear to auscultation, chest wall stable without crepitus or subcu emphysema Abdomen-normoactive bowel sounds, soft, nontender, no rebound or rigidity, no peritoneal signs. Neuro exam-finger to nose and heel to webber testing within normal limits, negative Romberg, negative pronator drift, fundi benign Extremities-intact ?4, normal range of motion, normal pulses, atraumatic] Test Results: [None indicated] Emergency Department Course and Treatment: [IV line was established and patient was given a liter normal saline fluid bolus as well as Reglan and Toradol and her headache resolved] Treatment Plan: [Patient follow-up with her neurologist within the next 3-5 days] Disposition: [Discharged home in stable condition] Impression: [Migrainous cephalgia-resolved] This note was generated with [employer] dictation software. It may contain incorrect words, spelling, and punctuation that were not noted in review of the chart prior to signing ED Disposition - Plan for ED Patient: Chief Complaint: General Illness Referrals: Olvin Dickey MD [Primary Care Provider] -
--- NOTE | 2017-12-29 04:18 | ED.DCSUM_ITS ---
- ER Visit Summary Date of Service: 12/29/17 Chief Complaint: [Headache] History of Present Illness: The patient is a 22 F [presents to the emergency department with complaint of a headache that started earlier today. Patient states she has a history of chronic migraines and sees Dr. Bryant] of neurology. Patient gets Botox injections and has missed her last appointment. Patient describes diffuse headache with photophobia and nausea that is typical of her migraines. Patient also states that she feels slightly short of breath and she thinks may be related to her anxiety and history of asthma. Patient denies any falls or head injuries. Patient denies any fever. Patient has not had any significant cough. Physical Examination: [HEENT-PERRLA, EOMI. Cranial nerves II through XII grossly intact. TMs clear. Mucous membranes moist. No adenopathy. Cardiovascular-regular rate and rhythm without murmur or ectopy Lungs-clear to auscultation, chest wall stable without crepitus or subcu emphysema Abdomen-normoactive bowel sounds, soft, nontender, no rebound or rigidity, no peritoneal signs. Neuro exam-finger to nose and heel to webber testing within normal limits, negative Romberg, negative pronator drift, fundi benign Extremities-intact ?4, normal range of motion, normal pulses, atraumatic] Test Results: [None indicated] Emergency Department Course and Treatment: [IV line was established and patient was given a liter normal saline fluid bolus as well as Reglan and Toradol and her headache resolved] Treatment Plan: [Patient follow-up with her neurologist within the next 3-5 days ] Disposition: [Discharged home in stable condition] Impression: [Migrainous cephalgia-resolved] This note was generated with [employer] dictation software. It may contain incorrect words, spelling, and punctuation that were not noted in review of the chart prior to signing ED Disposition - Plan for ED Patient: Chief Complaint: General Illness Referrals: Olvin Dickey MD [Primary Care Provider] -
--- NOTE | 2017-12-29 04:18 | ED.DEP ---
ED Disposition - Plan for ED Patient: Chief Complaint: General Illness Instructions: ED Headache Migraine Referrals: Olvin Dickey MD [Primary Care Provider] - Kelly Bryant MD [STAFF PHYSICIAN] - 3-5 Days
[2017-12-29 04:22] VITALS: BP 148/97; PULSE 69; RESP 15; O2SAT 97
== END 2017-12-29 04:28 | disposition home or self-care (01) ==
PROVIDERS: Emergency Provider Emergency Medicine; Family Provider Family Medicine; PCP Family Medicine
DX: G43.909 Migraine, unspecified, not intractable, without status migrainosus (principal); Z72.0 Tobacco use; Z79.899 Other long term (current) drug therapy
CPT/HCPCS: 96361; 96374; 96375; 99283; J7030; A4216

== ENCOUNTER 2018-01-04 20:09 | Emergency (ER) | payer MEDICAID, SELFPAY ==
[2018-01-04 20:10] VITALS: BP 133/102; PULSE 97; RESP 16; TEMP 36.7; O2SAT 98; BMI 24.0
--- NOTE | 2018-01-04 21:14 | ED.VISSUMM ---
- ER Visit Summary Date of Service: 01/04/18 Chief Complaint: [Injury left breast] History of Present Illness: The patient is a 22 F [presents the emergency department complaint of injuring her left wrist 2 days ago. Patient states that she was moving furniture and some hours in a [address] [place] as she got an eviction notice recently. Patient's now having pain in her left wrist. She denies any falls or direct trauma to it. Patient is right-hand dominant.] Physical Examination: [Left wrist-there is no soft tissue swelling, ecchymosis, or bruising. Patient has some mild diffuse tenderness on palpation. She is neurovascular intact distally with normal sensation and normal range of motion of all digits.] Test Results: [None indicated] I do not feel x-rays are indicated as she has had no direct trauma. And given her history of the injury I do not feel x-rays are indicated. Emergency Department Course and Treatment: [Patient will receive a Velcro wrist splint] Treatment Plan: [Patient advised use Advil which she is currently been taking. Patient to follow-up with her primary care physician in 7-10 days.] Disposition: [Discharged home in stable condition.] Impression: [Left wrist sprain] This note was generated with [employer] dictation software. It may contain incorrect words, spelling, and punctuation that were not noted in review of the chart prior to signing ED Disposition - Plan for ED Patient: Chief Complaint: Upper Extremity Injury Referrals: Olvin Dickey MD [Primary Care Provider] -
--- NOTE | 2018-01-04 21:16 | ED.DEP ---
ED Disposition - Plan for ED Patient: Chief Complaint: Upper Extremity Injury Instructions: ED Sprain Wrist Referrals: Olvin Dickey MD [Primary Care Provider] - 5-7 Days
[2018-01-04 21:39] VITALS: PULSE 94; RESP 14; O2SAT 99
== END 2018-01-04 22:01 | disposition home or self-care (01) ==
LOC: ED 21:47
PROVIDERS: Emergency Provider Emergency Medicine; Family Provider Family Medicine; PCP Family Medicine
DX: S63.502A Unspecified sprain of left wrist, initial encounter (principal); R56.9 Unspecified convulsions; Z72.0 Tobacco use; Z79.899 Other long term (current) drug therapy; X58.XXXA Exposure to other specified factors, initial encounter; Y93.E6 Activity, residential relocation; Y92.009 Unspecified place in unspecified non-institutional (private) residence as the place of occurrence of the external cause; Y99.8 Other external cause status
CPT/HCPCS: 99283

== ENCOUNTER 2018-02-12 01:29 | Emergency (ER) | payer MEDICAID, SELFPAY ==
[2018-02-12 01:30] VITALS: BP 150/103; PULSE 117; RESP 16; TEMP 36.9; O2SAT 98; BMI 26.1
--- NOTE | 2018-02-12 01:39 | RAD_ITS ---
STUDY: X-RAY - RIGHT WRIST REASON FOR EXAM: Female, 22 years old. GRABBED AN AIR CONDITIONER BY ITS CORD IT WAS FALLING OUT A WINDOW C/O PAIN RT 1ST METACARPAL and NAVICULAR AREAS TECHNIQUE: 4 view(s) of the wrist were obtained. COMPARISON: None. FINDINGS: Normal visualized distal radius and ulna. Normal radiocarpal articulation. Normal distal radioulnar articulation. Normal carpal bones. Normal carpal articulations. Normal carpometacarpal articulation of the thumb. Normal second through fifth carpometacarpal articulations. Normal visualized metacarpal bones. The soft tissue structures are unremarkable. RAD/Wrist min 3 Views IMPRESSION: Normal x-ray examination of the wrist. Electronically Signed: Maged Delarosa MD at 2:17 EDT Tel , Service support ,
--- NOTE | 2018-02-12 01:39 | RAD_ITS ---
STUDY: X-RAY - RIGHT HAND REASON FOR EXAM: Female, 22 years old. Trauma. Patient grabbed an air conditioner biophysical score as it was falling out of a window. Pain in the first metacarpal region and lateral wrist. TECHNIQUE: 3 view(s) of the hand. COMPARISON: X-ray wrist done today. FINDINGS: Normal radiocarpal articulation. Normal distal radioulnar joint. Normal visualized carpal bones. Normal carpal articulations Normal carpometacarpal articulation of the thumb. Normal second through fifth carpometacarpal joints. Normal metacarpi. Normal metacarpophalangeal joint of the thumb. Normal interphalangeal joint of the thumb. Normal proximal and distal phalanges of the thumb. Normal metacarpophalangeal joints of the second through fifth fingers. Normal proximal and distal interphalangeal joints of the second through fifth fingers. Normal phalanges of the second through fifth fingers. The soft tissue structures are unremarkable. RAD/Hand Min 3 Views IMPRESSION: Normal x-ray examination of the hand. Electronically Signed: Alex Dukes MD at 2:20 EDT , Service support ,
--- NOTE | 2018-02-12 02:11 | ED.VISSUMM ---
- ER Visit Summary Date of Service: 02/12/18 Chief Complaint: Right hand and wrist pain History of Present Illness: The patient is a 22 F presenting with right hand and wrist pain. Patient states she was trying to catch an air conditioner that was falling out a window. She states she grabbed the cord. States it pulled at her wrist and she has pain in the right hand and wrist. She also has pain in her back. No direct injury. No other complaints. Physical Examination: Vitals are stable. Patient is afebrile. Alert no acute distress. HEENT exam is unremarkable. Lungs are clear and equal bilaterally. Heart is regular rate and rhythm. Back nontender Extremities mild diffuse right wrist tenderness with painful range of motion. Skin is warm and dry. No focal neurologic deficit. Remainder of exam is unremarkable. Emergency Department Course and Treatment: Patient is given Tylenol. Ice pack was applied. X-ray of the right hand and wrist showed no acute process. She was given a Velcro wrist splint. Advised to follow-up with primary care physician. Advised return ED if worsening complaints. Disposition: Discharge home Impression: Right wrist sprain This note was generated with [employer] dictation software. It may contain incorrect words, spelling, and punctuation that were not noted in review of the chart prior to signing ED Disposition - Plan for ED Patient: Chief Complaint: Upper Extremity Injury Referrals: Olvni Dickey MD [Primary Care Provider] -
[2018-02-12] MEDS: Acetaminophen 500 MG Tablet 1000 MG PO (02:17)
--- NOTE | 2018-02-12 02:28 | ED.DEP ---
ED Disposition - Plan for ED Patient: Chief Complaint: Upper Extremity Injury Instructions: ED Sprain Wrist Referrals: Olvin Dickey MD [Primary Care Provider] -
[2018-02-12 02:43] VITALS: RESP 20
== END 2018-02-12 02:44 | disposition home or self-care (01) ==
LOC: ED 01:41
PROVIDERS: Emergency Provider Emergency Medicine; Family Provider Family Medicine; PCP Family Medicine
DX: S63.501A Unspecified sprain of right wrist, initial encounter (principal); F32.9 Major depressive disorder, single episode, unspecified; R56.9 Unspecified convulsions; Z72.0 Tobacco use; Z79.899 Other long term (current) drug therapy; X50.0XXA Overexertion from strenuous movement or load, initial encounter; Y93.89 Activity, other specified; Y92.89 Other specified places as the place of occurrence of the external cause; Y99.8 Other external cause status
CPT/HCPCS: 73110; 73130; 99283

== ENCOUNTER 2018-03-08 19:25 | Emergency (ER) | payer MEDICAID, SELFPAY ==
[2018-03-08 19:26] VITALS: BP 130/93; PULSE 104; RESP 18; TEMP 36.9; O2SAT 97; BMI 24.3
[2018-03-08] MEDS: DiphenhydrAMINE 50 MG/ML Syringe 25 MG IV (20:30)
[2018-03-08] MEDS: Metoclopramide 10 MG/2 ML Vial IV (20:30)
[2018-03-08] MEDS: Ketorolac 30 MG/ML Syringe IV (20:31)
--- NOTE | 2018-03-08 22:09 | ED.VISSUMM ---
- ER Visit Summary Date of Service: 03/08/18 Chief Complaint: Numerous symptoms including headache, nausea, document a fever to 101, nasal congestion and nonproductive cough History of Present Illness: The patient is a 22 F who has headache which she believes are migraine headache. She does complain of photophobia. She denies she denies neck pain or stiffness. She does report nonproductive cough. Denies chest pain. Denies vomiting or diarrhea. Denies dysuria, frequency, urgency or hematuria. Denies any skin lesions or rash. Please see written note for complete detail Physical Examination: Vital signs were noted and are marked for blood pressure 130/93 and heart rate 104. She appears in no distress. Head is atraumatic normocephalic. Pupils are equal round reactive. Extraocular muscles are intact. TMs are pearly white with landmarks noted. Nares patent with no drainage. Posterior pharynx without erythema or exudate. Uvula is midline. There is no dysphonia or dysphasia. Trachea is midline. There is no stridor with auscultation of the neck. There is no photophobia. There is no nuchal rigidity. Heart is regular without murmur, gallop or rub. S1 and S2 are normal. Lungs are clear to auscultation with good movement of air bilaterally. Abdomen soft nontender. 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 She is alert and oriented ?3. Motor spiral 5. Sensations intact. DTRs symmetric no clonus or Babinski. Cranial 2 through 12 intact. Test Results: None Emergency Department Course and Treatment: Patient received 30 Cooper grams Toradol IV push, 10 mg Reglan IV push and 25 mg of Benadryl IV push. I was informed at 2150 the patient's headache is resolved. Treatment Plan: Discharge to home Disposition: Discharged home with symptomatic treatment and note indicating she was seen in the emergency department Impression: 1. Migraine headache 2. Reported temperature 101.0?F 3. URI This note was generated with [employer] dictation software. It may contain incorrect words, spelling, and punctuation that were not noted in review of the chart prior to signing ED Disposition - Plan for ED Patient: Disposition: Home or Assisted Living Chief Complaint: General Illness Instructions: ED Headache Migraine, ED URI Viral Referrals: Olvin Dickey MD [Primary Care Provider] - 1 Week if not improving
[2018-03-08 22:19] VITALS: BP 136/78; PULSE 76; RESP 16; O2SAT 99
== END 2018-03-08 22:24 | disposition home or self-care (01) ==
PROVIDERS: Emergency Provider Emergency Medicine; Family Provider Family Medicine; PCP Family Medicine
DX: G43.909 Migraine, unspecified, not intractable, without status migrainosus (principal); J06.9 Acute upper respiratory infection, unspecified; R50.9 Fever, unspecified; E66.9 Obesity, unspecified; R56.9 Unspecified convulsions; F32.9 Major depressive disorder, single episode, unspecified; Z79.2 Long term (current) use of antibiotics; Z79.899 Other long term (current) drug therapy
CPT/HCPCS: 96374; 96375; 99283; J7030

== ENCOUNTER 2018-03-21 23:34 | Emergency (ER) | payer MEDICAID, SELFPAY ==
[2018-03-21 23:35] VITALS: BP 160/79; PULSE 95; RESP 18; TEMP 36.6; O2SAT 98; BMI 24.5
--- NOTE | 2018-03-22 00:12 | ED.VISSUMM ---
- ER Visit Summary Date of Service: 03/22/18 Chief Complaint: Multiple complaints History of Present Illness: The patient is a 22 F right upper dental pain for 3 weeks. Chronic migraines on Topamax. No falls or head injuries. Hot and cold sensitivities to tooth. States had a fever 3 weeks ago. Urine frequency for 1 week. States generalized weakness with lightheaded symptoms or history of anemia. She sees her PCP yearly states his blood check. Unclear her baseline hemoglobin. Concern of low blood counts. Double shots therefore last menstrual period unknown. 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 Has tolerated Toradol in the past. No history of gastric ulcers. No syncopal episodes. Also states he gets low blood glucose, no history of diabetes. Physical Examination: General: Alert and oriented ?3, no acute distress HEENT: Normocephalic, atraumatic. Moist mucosa membranes. Normal conjunctiva. Tender palpation tooth #2 no focal abscess, fillings present. Airway patent. Neck: supple, nontender. Cardiovascular: Regular rate and rhythm, no murmurs Respiratory: Normal breath sounds, symmetric, no distress Abdomen: Soft, nontender, nondistended Extremities: Nontender, no edema, pulses intact ?4 Neuro: no focal neurological deficits. Test Results: Hemoglobin 13.9. Blood glucose 105. UA leukocytes have had epithelials. Emergency Department Course and Treatment: Patient multiple concerns. She wanted hemoglobin check with anemia history. This is normal. She was Concern of her blood glucose which was normal. Started on penicillin for dental pain. She given Toradol which did help her dental pain and her headaches. With her urine symptoms will place on Keflex to cover both UTI and dental pain. Discussed with patient calling dentist for follow-up for definitive care. Treatment Plan: [] Disposition: Discharge Impression: 1. Dentalgia 2. UTI This note was generated with [employer] dictation software. It may contain incorrect words, spelling, and punctuation that were not noted in review of the chart prior to signing ED Disposition - Plan for ED Patient: Disposition: Home or Assisted Living Chief Complaint: Headache Diagnosis: Dentalgia, Headache, UTI (urinary tract infection) Instructions: ED Cephalgia Unspecified, ED Tooth Pain, ED UTI Cystitis Female Prescriptions: Cephalexin [Keflex] 500 mg PO Q6 #40 capsule Naproxen [Naprosyn] 500 mg PO BID #20 tablet Referrals: Olvin Dickey MD [Primary Care Provider] - 3-5 Days Additional Instructions: Call your dentist for follow-up for definitive care of tooth. Take medication as prescribed.
[2018-03-22] MEDS: Penicillin Vk 250 MG Tablet 500 MG PO (00:20)
[2018-03-22] MEDS: Ketorolac 30 MG/ML Syringe IM (00:20)
[2018-03-22 00:30] LABS: Bedside Glucose 105 mg/dL (70-110)
[2018-03-22 00:37] LABS: Red Blood Cells-Urine 0 SEEN /hpf (0-5)
[2018-03-22 00:41] LABS: Color, Urine Yellow (Yellow); Glucose, Dipstick Normal (Normal); Ketone-Dipstick Negative (Negative); Leukocyte Esterase-Dipstick 100 /ul (Negative); Nitrite-Dipstick Negative (Negative); Occult Blood-Urine 25 /ul (Negative); Protein-Dipstick 15 mg/dl (Negative); Urine Bilirubin Dipstick Negative (Negative); Urine Clarity Sl. Cloudy (Clear); Urine Urobilinogen 1 mg/dl (Normal); Urine pH 6.5 (5.0 - 8.0)
[2018-03-22 00:50] LABS: Hematocrit 40.6 % (37-47); Hemoglobin 13.9 g/dl (12.0-15.0); Mean Corp Hgb Conc 34.2 g/gl (32-36); Mean Corpuscular Hgb 30.6 pg (27.0-32.0); Mean Corpuscular Volume 89.4 fL (81-99); Mean Platelet Vol. 10.7 fl (6.2-12.0); Platelet Count 198 K/mm3 (150-450); RBC Distribution Width CV 13.2 % (11.6-14.6); Red Blood Count 4.54 M/mm3 (4.2-5.4); Scan Indicated on CBC? Y/N NO; White Blood Count 10.5 K/mm3 (4.4-11.0)
[2018-03-22 01:11] LABS: Bacteria 2+ /hpf (None Seen); Mucous, Urine 1+ /hpf (<or=2+); White Blood Cells 5-10 SEEN /hpf (0-5)
[2018-03-22 01:12] LABS: Squamous Epithelial Cells - UA 25-50 SEEN /hpf (5-10)
[2018-03-22 01:46] VITALS: PULSE 64; RESP 14; O2SAT 98
== END 2018-03-22 01:48 | disposition home or self-care (01) ==
PROVIDERS: Emergency Provider Emergency Medicine; Family Provider Family Medicine; PCP Family Medicine
DX: N39.0 Urinary tract infection, site not specified (principal); R51 Headache; K08.89 Other specified disorders of teeth and supporting structures; Z79.899 Other long term (current) drug therapy; Z72.0 Tobacco use
CPT/HCPCS: 81001; 82962; 85027; 96372; 99283

== ENCOUNTER 2018-04-02 22:10 | Emergency (ER) | payer MEDICAID, SELFPAY ==
[2018-04-02 22:11] VITALS: BP 130/90; PULSE 100; RESP 18; TEMP 36.5; O2SAT 98; BMI 24.5
--- NOTE | 2018-04-02 22:14 | RAD_ITS ---
STUDY: X-RAY - RIGHT ANKLE REASON FOR EXAM: Female, 22 years old. Laceration TECHNIQUE: 3 view(s) of the ankle. COMPARISON: None. FINDINGS: Normal visualized distal tibia and fibula. Normal medial and lateral malleoli. Normal tibiotalar articulation and ankle mortise. Normal visualized talus and calcaneus. The visualized subtalar, talonavicular, calcaneocuboid and tarsal articulations are normal. Possible posterior laceration at the heel. RAD/Ankle min 3 Views IMPRESSION: No acute bony injury of the ankle. Electronically Signed: Jerald Daigle DO at 22:39 EDT Tel [phone], Service support ,
--- NOTE | 2018-04-03 00:24 | ED.VISSUMM ---
- ER Visit Summary Date of Service: 04/03/18 Chief Complaint: Blunt trauma and laceration dorsal lateral surface right foot History of Present Illness: The patient is a 22 F who states she bumped her foot against the edge of the bed frame that was uncovered. She sustained a laceration. She does complain of severe pain. She denies paresthesia, anesthesia motors. She states she has significant discomfort with weightbearing. She has no other complaints. Immunization up-to-date. Physical Examination: There is a 3.5 cm laceration dorsal surface of the right foot. X-ray was obtained per nursing protocol. DP and PT pulses are palpable. There is no subungual hematoma noted of any of the toes. There is no pain to palpation over the lateral or medial malleolus. There is no pain the patient of the calcaneus. There is pain to palpation over the third and fourth metatarsal. Test Results: X-ray was obtained per nursing protocol and interpreted by me as negative for foreign body or fracture. Emergency Department Course and Treatment: X-ray per nurse protocol. The wound was anesthetized by local infiltration using 1% lidocaine. The wound was irrigated with normal saline. Using 5-0 Ethilon simple interrupted sutures were placed with good cosmesis hemostasis. Treatment Plan: Wound care Disposition: Discharged home in stable condition Impression: 1. Right foot pain secondary to contusion initial encounter 2. 3.5 cm laceration right foot This note was generated with [employer] dictation software. It may contain incorrect words, spelling, and punctuation that were not noted in review of the chart prior to signing ED Disposition - Plan for ED Patient: Disposition: Home or Assisted Living Chief Complaint: Laceration Instructions: ED Contusion Foot, ED Laceration Foot Referrals: Olvin Dickey MD [Primary Care Provider] - 10 Day for suture removal Additional Instructions: Clean laceration with peroxide and Q-tip 3 times a day then apply bacitracin ointment.
[2018-04-03 00:38] VITALS: BP 124/60; PULSE 81; RESP 18
== END 2018-04-03 00:40 | disposition home or self-care (01) ==
PROVIDERS: Emergency Provider Emergency Medicine; Family Provider Family Medicine; PCP Family Medicine
DX: S91.311A Laceration without foreign body, right foot, initial encounter (principal); S90.31XA Contusion of right foot, initial encounter; W22.8XXA Striking against or struck by other objects, initial encounter; Y93.9 Activity, unspecified; Y92.9 Unspecified place or not applicable; Z86.14 Personal history of Methicillin resistant Staphylococcus aureus infection; Z72.0 Tobacco use
CPT/HCPCS: 12002; 73610; 99284

== ENCOUNTER 2018-04-12 20:44 | Emergency (ER) | payer MEDICAID, SELFPAY ==
[2018-04-12 20:50] VITALS: BP 143/98; PULSE 97; RESP 16; TEMP 37.2; O2SAT 96; BMI 24.5
--- NOTE | 2018-04-12 21:03 | ED.VISSUMM ---
- ER Visit Summary Date of Service: 04/12/18 Chief Complaint: Suture removal History of Present Illness: The patient is a 22 F who needed her sutures removed. There are put in 1 week ago here. She tripped over her bed and lacerated her foot. She states there is been no drainage and it has been healing well. Physical Examination: Right foot exam reveals 7 sutures on the dorsal part of the foot. No bleeding, drainage or erythema noted. Test Results: None performed Emergency Department Course and Treatment: Patient had sutures removed. She tolerated this well. She will follow-up as needed Treatment Plan: [] Disposition: Discharge Impression: Suture removal Removal by ED physician This note was generated with [employer] dictation software. It may contain incorrect words, spelling, and punctuation that were not noted in review of the chart prior to signing ED Disposition - Plan for ED Patient: Chief Complaint: Suture Remv Referrals: Olvin Dickey MD [Primary Care Provider] -
--- NOTE | 2018-04-12 21:04 | ED.DEP ---
ED Disposition - Plan for ED Patient: Disposition: Home or Assisted Living Chief Complaint: Suture Remv Instructions: ED Wound Check Sutr Remove No Infec Referrals: Olvin Dickey MD [Primary Care Provider] -
== END 2018-04-12 21:17 | disposition home or self-care (01) ==
LOC: ED 21:15
PROVIDERS: Emergency Provider Emergency Medicine; Family Provider Family Medicine; PCP Family Medicine
DX: S91.311D Laceration without foreign body, right foot, subsequent encounter (principal); Z48.02 Encounter for removal of sutures; J45.909 Unspecified asthma, uncomplicated; F32.9 Major depressive disorder, single episode, unspecified; F41.9 Anxiety disorder, unspecified; R56.9 Unspecified convulsions; Z72.0 Tobacco use; Z79.899 Other long term (current) drug therapy; W22.8XXD Striking against or struck by other objects, subsequent encounter
CPT/HCPCS: 99282

== ENCOUNTER 2018-04-20 22:15 | Emergency (ER) | payer MEDICAID, SELFPAY ==
[2018-04-20 22:16] VITALS: BP 143/103; PULSE 115; RESP 18; TEMP 36.4; O2SAT 99; BMI 24.5
[2018-04-21] MEDS: Metoclopramide 10 MG/2 ML Vial IV (00:11)
[2018-04-21] MEDS: Ketorolac 30 MG/ML Syringe IV (00:13)
[2018-04-21 00:25] LABS: Bacteria 0 SEEN /hpf (None Seen); Mucous, Urine 0 SEEN /hpf (<or=2+)
[2018-04-21 00:30] LABS: Color, Urine Yellow (Yellow); Glucose, Dipstick Normal (Normal); Ketone-Dipstick Negative (Negative); Leukocyte Esterase-Dipstick 25 /ul (Negative); Nitrite-Dipstick Negative (Negative); Occult Blood-Urine 50 /ul (Negative); Protein-Dipstick 15 mg/dl (Negative); Specific Gravity, Urine 1.025 (1.002-1.030); Urine Bilirubin Dipstick Negative (Negative); Urine Clarity Sl. Cloudy (Clear); Urine Urobilinogen 1 mg/dl (Normal)
[2018-04-21 00:36] LABS: Internal QC Validated? YES +Cl - CLEAR BKGD; Pregnancy, Urine Negative Negative
[2018-04-21 00:52] LABS: Red Blood Cells-Urine 5-10 SEEN /hpf (0-5); Squamous Epithelial Cells - UA 50-100 SEEN /hpf (5-10); White Blood Cells 5-10 SEEN /hpf (0-5)
--- NOTE | 2018-04-21 02:09 | ED.DCSUM_ITS ---
History of Present Illness Chief Complaint: General Illness Informant: Patient Onset: Days - 2-3 Context: Gradual Onset Timing: Continuous Quality: migraine Location: bifrontal Current Severity: Severe Maximum Severity: Severe Worsened by: light, sound Relieved by: nothing Associated Symptoms: cold that my family gave me, suprapubic abd discomfort, ur freq - Past Medical History (1) Migraines Status: Chronic Past Medical History - Allergies and Home Meds Allergies/Adverse Reactions: Allergies acetaminophen [From Tylenol] Adverse Reaction (Verified 04/20/18 22:19) Unknown states cannot take with seizure meds diphenhydramine [From Benadryl] Adverse Reaction (Verified 04/20/18 22:19) Unknown states cannot take with seizure meds ibuprofen [From Motrin] Adverse Reaction (Verified 04/20/18 22:19) Unknown states cannot take with seizure meds Primary Care Physician: Olvin Dickey MD [Primary Care Provider] - Smoking Status: Current every day smoker Review of Systems General: Denies: Chills, Fever, Sweats Eyes: Denies: Visual changes - bilaterally, Diplopia ENT: Reports: Bilateral ear pain, Rhinorrhea - and congestion, Sore throat - mild Cardiovascular: Denies: Chest pain, Palpitations Respiratory: Reports: Cough. Denies: Dyspnea, Dyspnea on exertion Gastrointestinal: Reports: Abdominal pain, Nausea, Vomiting - AMs more. Denies: Diarrhea, Melena, Hematochezia Genitourinary: Reports: Frequency. Denies: Dysuria, Hematuria Musculoskeletal: Reports: Back pain - low middle. Denies: Neck pain, Swelling, Extremity Pain Skin: Denies: Rash Neurological: Reports: Parasthesia - bilat hands, similar to prior migraines. Denies: Headache, Weakness, Numbness Physical Exam Vital Signs/Narrative: Vital Signs Temp Pulse Resp BP Pulse Ox 04/20/18 22:16 97.5 F L 115 H 18 143/103 H 99 Inital Vital Signs reviewed: Yes General: Well nourished, Well developed, - - nad Head: Normocephalic, Atraumatic Eyes: Perrl, EOMI ENT: Moist mucous membranes, No rhinorrhea Neck: Supple - w/o meningismus, Nontender Cardiovascular: Regular rate, Regular rhythm, No murmurs Respiratory: No distress, CTA bilaterally, Chest nontender Abdomen: Soft, Nondistended, Normal bowel sounds, Tender - mild suprapubic only Back: Nontender, Normal Inspection Extremities: Nontender, No edema Skin: Normal color, No rash Neurological: Alert, Oriented x3, Cranial nerves II-XII grossly intact, Normal Strength, Normal Sensation Psychological: Normal affect Diagnostic/Tx/Re-eval Laboratory Tests 04/21/18 04/21/18 Range/Units 00:10 00:10 Urine Color Yellow (Yellow) Urine Clarity Sl. Cloudy (Clear) Urine pH 5.0 (5.0 - 8.0) Ur Specific [place] 1.025 (1.002-1.030) Urine Protein 15 H (Negative) mg/dl Urine Glucose (UA) Normal (Normal) mg/dl Urine Ketones Negative (Negative) mg/dl Urine Occult Blood 50 H (Negative) /ul Urine Nitrite Negative (Negative) Urine Bilirubin Negative (Negative) mg/dL Urine Urobilinogen 1 H (Normal) mg/dl Ur Leukocyte Esterase 25 H (Negative) /ul Urine RBC 5-10 SEEN (0-5) /hpf Urine WBC 5-10 SEEN (0-5) /hpf Ur Squamous Epith Cells 50-100 SEEN (5-10) /hpf Urine Bacteria 0 SEEN (None Seen) /hpf Urine Mucus 0 SEEN (<or=2+) /hpf Urine Test Negative Negative - Medical Decision Making Patient states that she has been vomiting and more so in the mornings. is negative. She has had migraines off and on but it has been worse in the past couple days, she has had a cold for 2 weeks or more, each family member in her household has successfully become ill with the same symptoms indicating that it is more likely viral. She was given Reglan and Toradol for her symptoms and is significant better. Her urinalysis shows not many white cells, and significant a number of epithelials, but I suspect she may have a UTI and I think it is reasonable to try her on a 3-day course of Bactrim to see if that helps her symptoms. She is comfortable going home and following up. ED Disposition - Plan for ED Patient: Disposition: Home or Assisted Living Chief Complaint: General Illness Diagnosis: Migraine headache, Viral URI with cough, Cystitis without hematuria Instructions: ED Headache Migraine, ED UTI Cystitis Female Prescriptions: Smz/Tmp Ds [Bactrim Ds] 1 tab PO BID #6 tab Referrals: Olvin Dickey MD [Primary Care Provider] - 1 Week if not improving
[2018-04-21] MEDS: Smz/Tmp Ds Tablet 1 TABLET PO (02:14)
[2018-04-21 02:19] VITALS: BP 127/84; PULSE 81; RESP 15; O2SAT 98
== END 2018-04-21 02:20 | disposition home or self-care (01) ==
PROVIDERS: Emergency Provider Emergency Medicine; Family Provider Family Medicine; PCP Family Medicine
DX: G43.909 Migraine, unspecified, not intractable, without status migrainosus (principal); J06.9 Acute upper respiratory infection, unspecified; R05 Cough; N30.90 Cystitis, unspecified without hematuria; F17.200 Nicotine dependence, unspecified, uncomplicated
CPT/HCPCS: 81001; 81025; 96374; 96375; 99284

== ENCOUNTER 2018-05-02 09:24 | Emergency (ER) | payer MEDICAID, SELFPAY ==
[2018-05-02 09:25] VITALS: BP 144/91; PULSE 101; RESP 17; TEMP 36.8; O2SAT 98; BMI 24.5
--- NOTE | 2018-05-02 09:43 | ED.VISSUMM ---
- ER Visit Summary Date of Service: 05/02/18 Chief Complaint: Cough History of Present Illness: The patient is a 22 F who presents with cough and an episode of hemoptysis. Patient states she has had a cough for 2 weeks. Patient states she has been coughing up some green sputum but today had an episode of hemoptysis. Patient states she coughed up approximately 1 teaspoonful of blood today. Patient has not had any further episodes of hemoptysis since that time. Patient denies any chest pain. Patient states she does feel short of breath. 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 Patient admits to some nausea and some myalgias. Patient also admits to some sinus pressure over her maxillary sinuses. Physical Examination: Vital signs are stable. Patient is afebrile. Patient is in no acute distress. Oral mucosa is pink and moist. Nasal mucosa is congested. There is tenderness over the maxillary sinuses bilaterally. Neck is supple. Trachea is midline. There is no JVD or lymphadenopathy noted. Heart was regular rate and rhythm. Lungs are clear and equal bilaterally. There is good respiratory effort noted. Abdomen is soft. Bowel sounds are normal. There is no tenderness. There is no rebound or guarding noted. The remaining physical exam is within normal limits. Emergency Department Course and Treatment: Prior records from her last visit were reviewed. Patient was given a 3-day course of Bactrim at that time for possible urinary tract infection. Patient was not treated for bacterial bronchitis at that time. Given the patient's duration of symptoms and an episode of hemoptysis today, I feel it is reasonable to treat the patient for possible bacterial infection with doxycycline. Patient was given a note for work for today. Patient was instructed to follow-up with her primary care physician in 5-7 days. Patient understood and was agreeable with the plan. All questions were answered. Disposition: Discharged home Impression: Acute bronchitis This note was generated with [employer] dictation software. It may contain incorrect words, spelling, and punctuation that were not noted in review of the chart prior to signing ED Disposition - Plan for ED Patient: Disposition: Home or Assisted Living Chief Complaint: Cough Diagnosis: Acute bronchitis Instructions: ED Bronchitis Asthmatic Prescriptions: Doxycycline Monohydrate 100 mg PO BID #14 cap Referrals: Olvin Dickey MD [Primary Care Provider] -
--- NOTE | 2018-05-02 09:47 | ED.DCSUM_ITS ---
- ER Visit Summary Date of Service: 05/02/18 Chief Complaint: Cough History of Present Illness: The patient is a 22 F who presents with cough and an episode of hemoptysis. Patient states she has had a cough for 2 weeks. Patient states she has been coughing up some green sputum but today had an episode of hemoptysis. Patient states she coughed up approximately 1 teaspoonful of blood today. Patient has not had any further episodes of hemoptysis since that time. Patient denies any chest pain. Patient states she does feel short of breath. 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 Patient admits to some nausea and some myalgias. Patient also admits to some sinus pressure over her maxillary sinuses. Physical Examination: Vital signs are stable. Patient is afebrile. Patient is in no acute distress. Oral mucosa is pink and moist. Nasal mucosa is jodie ested. There is tenderness over the maxillary sinuses bilaterally. Neck is supple. Trachea is midline. There is no JVD or lymphadenopathy noted. Heart was regular rate and rhythm. Lungs are clear and equal bilaterally. There is good respiratory effort noted. Abdomen is soft. Bowel sounds are normal. There is no tenderness. There is no rebound or guarding noted. The remaining physical exam is within normal limits. Emergency Department Course and Treatment: Prior records from her last visit were reviewed. Patient was given a 3-day course of Bactrim at that time for possible urinary tract infection. Patient was not treated for bacterial bronchitis at that time. Given the patient's duration of symptoms and an episode of hemoptysis today, I feel it is reasonable to treat the patient for possible bacterial infection with doxycycline. Patient was given a note for work for today. Patient was instructed to follow-up with her primary care physician in 5-7 days. Patient understood and was agreeable with the plan. All questions were answered. Disposition: Discharged home Impression: Acute bronchitis This note was generated with [employer] dictation software. It may contain incorrect words, spelling, and punctuation that were not noted in review of the chart prior to signing ED Disposition - Plan for ED Patient: Disposition: Home or Assisted Living Chief Complaint: Cough Diagnosis: Acute bronchitis Instructions: ED Bronchitis Asthmatic Prescriptions: Doxycycline Monohydrate 100 mg PO BID #14 cap Referrals: Olvin Dickey MD [Primary Care Provider] -
--- NOTE | 2018-05-05 11:07 | CM.ED ---
ED CALLBACK: Follow-up call placed to patient. Patient states she is still having blood in sputum, shortness of breath, and feels worse. Patient is speaking in complete sentences. No coughing or distress noted over the phone. She began her antibiotic on Saturday. She states she is going to try to get a ride to her PCP, in [place], I encouraged her to try her insurance vouchers, if she cannot get a ride. I did instruct the patient to come back to the ER if she is unable to get to her PCP and feels her symptoms are worse. Patient states understanding and declines any assistance at this time.
== END 2018-05-02 09:58 | disposition home or self-care (01) ==
PROVIDERS: Emergency Provider Emergency Medicine; Family Provider Family Medicine; PCP Family Medicine
DX: J20.9 Acute bronchitis, unspecified (principal); Z86.14 Personal history of Methicillin resistant Staphylococcus aureus infection; Z72.0 Tobacco use
CPT/HCPCS: 99282; A4216

== ENCOUNTER 2018-05-10 20:27 | Emergency (ER) | payer OTHER, SELFPAY ==
[2018-05-10 20:28] VITALS: BP 153/102; PULSE 97; RESP 18; TEMP 36.2; O2SAT 897; BMI 25.4
--- NOTE | 2018-05-10 20:37 | RAD_ITS ---
STUDY: X-RAY - LEFT ELBOW REASON FOR EXAM: Female, 22 years old. Fall. Pain. History of congenital abnormality. TECHNIQUE: 3 view(s) of the elbow. COMPARISON: None. FINDINGS: There is deformity of the elbow joint. 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 The soft tissue structures are unremarkable. 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 Electronically Signed: Juanjose Qureshi MD at 21:14 EDT , Service support ,
--- NOTE | 2018-05-10 20:37 | RAD_ITS ---
STUDY: X-RAY - LEFT WRIST REASON FOR EXAM: Female, 22 years old. Fall. Pain. History of congenital abnormality. TECHNIQUE: 3 view(s) of the wrist were obtained. COMPARISON: None. FINDINGS: There is hypoplasia of the distal ulna. There is slight subluxation of the carpus medially. Normal distal radioulnar articulation. Normal carpal bones. Normal carpal articulations. Normal carpometacarpal articulation of the thumb. Normal second through fifth carpometacarpal articulations. Normal visualized metacarpal bones. The soft tissue structures are unremarkable. 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 Electronically Signed: Juanjose Qureshi MD at 21:23 EDT , Service support ,
--- NOTE | 2018-05-10 20:37 | RAD_ITS ---
STUDY: X-RAY - LEFT RADIUS AND ULNA REASON FOR EXAM: Female, 22 years old. Left arm pain after fall. History of congenital abnormality. TECHNIQUE: 2 view(s) of the forearm. COMPARISON: None. FINDINGS: There is no demonstrated soft tissue swelling. There is bowing of the radius. 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 There is marked hypoplasia of the distal ulna. There is mild deformity of the elbow joint itself. 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 Electronically Signed: Juanjose Qureshi MD at 21:03 EDT , Service support ,
--- NOTE | 2018-05-10 20:47 | ED.DCSUM_ITS ---
- ER Visit Summary Date of Service: 05/10/18 Chief Complaint: Fall History of Present Illness: The patient is a 22 F presenting after fall. Patient states she slipped at work. She landed on her left upper extremity. She did not hit her head or lose consciousness. She has a chronic deformity to her left upper extremity secondary to surgery as a child. Denies other complaints. Physical Examination: Vitals are stable. Patient is afebrile. Alert no acute distress. HEENT exam is unremarkable. Neck is nontender Lungs are clear and equal bilaterally. Heart is regular rate and rhythm. Extremities left wrist, forearm and elbow diffuse tenderness, painful range of motion, normal distal pulse. Skin is warm and dry. No focal neurologic deficit. Remainder of exam is unremarkable. 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 Patient was given OxyIR x1 and a prescription for naproxen. She is given a sling and a Velcro wrist splint. She is advised to follow-up with [facility] care. Advised return to ED if worsening complaints. Disposition: Discharge home Impression: Left upper extremity contusion This note was generated with [employer] dictation software. It may contain incorrect words, spelling, and punctuation that were not noted in review of the chart prior to signing ED Disposition - Plan for ED Patient: Chief Complaint: Upper Extremity Injury Instructions: ED Contusion Upper Ext Prescriptions: Naproxen [Naprosyn] 500 mg PO BID PRN #20 tablet Referrals: [facility] [GROUP OF PHYSICIANS] - Olvin Dickey MD [Primary Care Provider] -
[2018-05-10] MEDS: oxyCODONE 5 MG Tablet PO (20:56)
--- NOTE | 2018-05-10 21:54 | ED.DEP ---
ED Disposition - Plan for ED Patient: Chief Complaint: Upper Extremity Injury Instructions: ED Contusion Upper Ext Prescriptions: Naproxen [Naprosyn] 500 mg PO BID PRN #20 tablet Referrals: Olvin Dickey MD [Primary Care Provider] - [facility] [GROUP OF PHYSICIANS] -
[2018-05-10 22:22] VITALS: PULSE 76; RESP 16; O2SAT 98
== END 2018-05-10 22:23 | disposition home or self-care (01) ==
PROVIDERS: Emergency Provider Emergency Medicine; Family Provider Family Medicine; PCP Family Medicine
DX: S50.12XA Contusion of left forearm, initial encounter (principal); S60.212A Contusion of left wrist, initial encounter; F41.9 Anxiety disorder, unspecified; Z72.0 Tobacco use; Z79.899 Other long term (current) drug therapy; W01.0XXA Fall on same level from slipping, tripping and stumbling without subsequent striking against object, initial encounter; Y93.89 Activity, other specified; Y92.89 Other specified places as the place of occurrence of the external cause; Y99.0 Civilian activity done for income or pay
CPT/HCPCS: 73080; 73090; 73110; 99284

== ENCOUNTER 2018-05-11 23:29 | Emergency (ER) | payer MEDICAID, SELFPAY ==
[2018-05-11 23:30] VITALS: BP 128/99; PULSE 91; RESP 18; TEMP 37; O2SAT 96; BMI 24.5
--- NOTE | 2018-05-11 23:50 | ED.VISSUMM ---
- ER Visit Summary Date of Service: 05/11/18 Chief Complaint: High blood pressure History of Present Illness: The patient is a 22 F presenting with elevated blood pressure. She states she checked her blood pressure at home and it was running high. She states she has felt tired today. She also complains of migraine. She states this started earlier today and was gradual in onset similar to her previous migraines. She has sensitivity to light. She denies trauma. She did fall yesterday but she did not hit her head. Denies other complaints. Physical Examination: Vitals are stable. Blood pressure 128/99. Patient is afebrile. Alert no acute distress. HEENT exam is unremarkable. Neck is supple. No meningismus Lungs are clear and equal bilaterally. Heart is regular rate and rhythm. Abdomen is soft nontender nondistended. Extremities are unremarkable. Skin is warm and dry. No focal neurologic deficit. Remainder of exam is unremarkable. Emergency Department Course and Treatment: Patient is given Reglan and Benadryl for her migraine. On reevaluation she is feeling improved. Repeat blood pressure is 124/105. She is advised to follow-up with her primary care physician for blood pressure recheck. Advised return to ED for any worsening complaints. Disposition: Discharge home Impression: Headache This note was generated with [employer] dictation software. It may contain incorrect words, spelling, and punctuation that were not noted in review of the chart prior to signing ED Disposition - Plan for ED Patient: Chief Complaint: Hypertension Instructions: ED Cephalgia Unspecified Referrals: Olvin Dickey MD [Primary Care Provider] -
[2018-05-11] MEDS: DiphenhydrAMINE 50 MG/ML Syringe 25 MG IV (23:56)
[2018-05-11] MEDS: Metoclopramide 10 MG/2 ML Vial 5 MG IV (23:58)
[2018-05-12 00:02] VITALS: BP 124/105; PULSE 82; RESP 16; O2SAT 98
--- NOTE | 2018-05-12 00:10 | ED.RN ---
LAURI TO GIVE BENADRYL PER DR. GALVAN.
[2018-05-12 01:01] VITALS: BP 135/90; PULSE 72; RESP 16; O2SAT 98
== END 2018-05-12 01:02 | disposition home or self-care (01) ==
LOC: ED 23:49
PROVIDERS: Emergency Provider Emergency Medicine; Family Provider Family Medicine; PCP Family Medicine
DX: R51 Headache (principal); Z72.0 Tobacco use; Z79.899 Other long term (current) drug therapy
CPT/HCPCS: 96374; 96375; 99283; A4216

== ENCOUNTER 2018-05-15 20:05 | Emergency (ER) | payer MEDICAID, SELFPAY ==
[2018-05-15 20:06] VITALS: BP 154/82; PULSE 91; RESP 16; TEMP 36.7; O2SAT 99; BMI 24.5
--- NOTE | 2018-05-15 21:02 | ED.DCSUM_ITS ---
- ER Visit Summary Date of Service: 05/15/18 Chief Complaint: Anxiety History of Present Illness: The patient is a 22 F who states that she feels anxious. She states that she had more stressors today at home. She was having some family issues. She stayed home from work. She tried her diazepam which was not working. She states that she has been having increase of her anxiety has having trouble getting into her doctor. He denies being suicidal or homicidal. Physical Examination: Vital signs reviewed. HEENT exam unremarkable. Heart is regular rate and rhythm without murmurs. Lungs are clear to auscultation. Abdomen is soft and nontender. Extremities reveal no edema. Skin exam normal. Neurologic exam normal. Patient is resting comfortably. She does not appear to be internally stimulated or overly anxious. Test Results: [] Emergency Department Course and Treatment: Patient was treated with Vistaril here. I will give her a prescription of Vistaril to take at home. She will need to call her PCP for follow-up for further evaluation. Treatment Plan: [] Disposition: Discharge Impression: Anxiety This note was generated with [employer] dictation software. It may contain incorrect words, spelling, and punctuation that were not noted in review of the chart prior to signing ED Disposition - Plan for ED Patient: Disposition: Home or Assisted Living Chief Complaint: Anxiety Instructions: ED Panic Attack Prescriptions: hydrOXYzine pamoate capsule [Vistaril] 50 mg PO TID PRN PRN #30 cap PRN Reason: Anxiety Referrals: Olvin Dickey MD [Primary Care Provider] -
[2018-05-15] MEDS: hydrOXYzine PAM 25 MG Capsule 50 MG PO (21:14)
[2018-05-15 21:15] VITALS: BP 142/70; PULSE 80; RESP 14; O2SAT 98
== END 2018-05-15 21:17 | disposition home or self-care (01) ==
PROVIDERS: Emergency Provider Emergency Medicine; Family Provider Family Medicine; PCP Family Medicine
DX: F41.9 Anxiety disorder, unspecified (principal); Z72.0 Tobacco use
CPT/HCPCS: 99283

== ENCOUNTER 2018-05-31 22:27 | Emergency (ER) | payer MEDICAID, SELFPAY ==
[2018-05-31 22:27] VITALS: BP 119/73; PULSE 84; RESP 16; TEMP 37.1; O2SAT 97; BMI 24.5
--- NOTE | 2018-05-31 23:16 | ED.DCSUM_ITS ---
- ER Visit Summary Date of Service: 05/31/18 Chief Complaint: Back pain History of Present Illness: The patient is a 22 F who presents for 3 weeks of back pain. Patient states she has diffuse bilateral back pain that is worse with bending over, picking things up and movement in general. She is tried Aleve, stretching and massage without improvement. She fell at work prior to onset, but landed on her left arm and did not note any injury to her back. However the back pain began after the fall. Patient has history of scoliosis. She has medications for seizures and depression. Physical Examination: Vital signs: afebrile, hemodynamically stable, no hypoxia on room air General: well nourished, well developed, in no distress Skin: warm, dry, no rash, no pallor HEENT: normocephalic and atraumatic; PERRL, EOMI, moist mucous membranes Cardiovascular: regular rate and rhythm without murmurs, no peripheral edema, 2+ pulses all distal extremities Respiratory: No increased work of breathing, lungs are clear to auscultation bilaterally, no rales, rhonchi or wheezing Abdominal: Abdomen is soft, nontender with normoactive bowel sounds, no guarding or rebound, no masses Back: No midline tenderness, deformities or step-offs. Diffuse tenderness to palpation of the paraspinal musculature in the thoracolumbar region. No rash. Normal gait. MSK: Moves all extremities, no deformities, normal strength Neuro: Awake and alert, oriented ?4. No facial droop, sensation and motor func tion intact and symmetric Test Results: [] Emergency Department Course and Treatment: Patient presents with diffuse back pain for 3 weeks, with an exam showing muscular tenderness diffusely in the back. She has no history that would be concerning for epidural abscess or hematoma. No history of IV drug use. No urinary or bowel incontinence or retention, no saddle anesthesia, no weakness in the legs. No significant mechanism of trauma, and given the diffuse paraspinal nature of the pain with no point tenderness in the spine, x-ray was not performed as this would be unlikely to be a fracture or dislocation. She was given a dose of Flexeril and ibuprofen for pain. She is out of her diazepam, and she states she will be able to get it filled again for several months, thus I prescribed the Flexeril. I told her she cannot take diazepam and Flexeril at the same time, as it will be overly sedating. Patient has ibuprofen listed as an allergy, however patient has taken it previously and also takes Aleve without difficulty. She does not have a true allergy to ibuprofen. She was given a prescription for Flexeril and ibuprofen and discharged home. Treatment Plan: [] Disposition: [] Impression: Lumbosacral strain This note was generated with [email or web address] dictation software. It may contain incorrect words, spelling, and punctuation that were not noted in review of the chart prior to signing ED Disposition - Plan for ED Patient: Chief Complaint: Back Referrals: Olvin Dickey MD [Primary Care Provider] -
--- NOTE | 2018-05-31 23:16 | ED.DEP ---
ED Disposition - Plan for ED Patient: Disposition: Home or Assisted Living Chief Complaint: Back Instructions: ED Sprain Strain Lumbar Prescriptions: Ibuprofen [Ibu] 400 mg PO 4X/DAY PRN PRN #20 tab PRN Reason: Pain Cyclobenzaprine [Flexeril] 5 mg PO TID PRN #15 tab PRN Reason: Muscle Spasm Referrals: Olvin Dickey MD [Primary Care Provider] - As soon as possible Additional Instructions: You may use Aleve or ibuprofen as needed for your back pain. Do not take them both at the same time, as they are similar medications. You may use the Flexeril for muscle spasm, but do not take it at the same time as your Valium. If you have any worsening of your condition or any new concerning symptoms, please return immediately to the emergency department for another evaluation.
[2018-05-31] MEDS: Ibuprofen 600 MG Tablet PO (23:27)
[2018-05-31 23:30] VITALS: PULSE 82; RESP 16; O2SAT 99
== END 2018-05-31 23:32 | disposition home or self-care (01) ==
PROVIDERS: Emergency Provider Emergency Medicine; Family Provider Family Medicine; PCP Family Medicine
DX: S39.012A Strain of muscle, fascia and tendon of lower back, initial encounter (principal); M41.9 Scoliosis, unspecified; R56.9 Unspecified convulsions; F32.9 Major depressive disorder, single episode, unspecified; Z79.899 Other long term (current) drug therapy; W19.XXXA Unspecified fall, initial encounter; Y93.89 Activity, other specified; Y92.89 Other specified places as the place of occurrence of the external cause; Y99.0 Civilian activity done for income or pay
CPT/HCPCS: 99283

== ENCOUNTER 2018-06-19 22:54 | Emergency (ER) | payer MEDICAID, SELFPAY ==
[2018-06-19 22:55] VITALS: BP 143/95; PULSE 114; RESP 16; TEMP 36.9; O2SAT 99; BMI 25.1
[2018-06-19 23:06] VITALS: BP 143/95; PULSE 114; RESP 16; TEMP 36.9
--- NOTE | 2018-06-19 23:14 | ED.VISSUMM ---
- ER Visit Summary Date of Service: 06/19/18 Chief Complaint: [] Posterior lump skin abscess History of Present Illness: The patient is a 22 F posterior neck skin abscess for the last 5 days. Started out as a small pimple and is gotten bigger and she is never had one before. She said is giving her a headache. Comes in for further evaluation. No home treatment. Physical Examination: [] Vital signs reviewed General: Well-nourished well-developed Head: Normocephalic atraumatic Eyes: Pupils equal round and reactive to light extraocular movements intact ENT: TMs clear no hemotympanum no trauma Neck: Nontender full range of motion. 0.5 x 0.5 very mild red hard skin abscess on the back of her neck spinous process #5. No head on it. No drainage. No cellulitis Cardiovascular: Regular rate rhythm no murmurs normal S1-S2 Respiratory: No distress clear to auscultation bilaterally chest nontender Abdomen: Soft nontender nondistended normal bowel sounds no masses Back: Nontender no CVA tenderness Extremities: Nontender active range of motion ?4 extremities no trauma Skin: See above Neuro alert oriented cranial nerves II through XII intact normal strength sensation reflexes Test Results: [] Emergency Department Course and Treatment: [] Patient given a dose of Toradol for her discomfort. She consented to incision and drainage. Wash well iodine and 2 cc of 1% lidocaine was instilled into the area. A small linear incision was made across the diameter of the wound. A mild amount of purulence. Squeezed out and washed with saline. She is too superficial to pack. Patient will continue wound management and follow-up as an outpatient. I do not that she needs antibiotics. Treatment Plan: [] Disposition: [] Impression: [] Posterior neck skin abscess status post incision and drainage This note was generated with [employer] dictation software. It may contain incorrect words, spelling, and punctuation that were not noted in review of the chart prior to signing ED Disposition - Plan for ED Patient: Chief Complaint: Abscess Referrals: Olvin Dickey MD [Primary Care Provider] -
[2018-06-19] MEDS: Ketorolac 60 MG/2 ML Vial IM (23:20)
--- NOTE | 2018-06-19 23:34 | ED.DEP ---
ED Disposition - Plan for ED Patient: Disposition: Home or Assisted Living Chief Complaint: Abscess Instructions: ED Abscess IandD Referrals: Olvin Dickey MD [Primary Care Provider] -
[2018-06-20 00:13] VITALS: BP 136/60; PULSE 98; RESP 16; O2SAT 96
--- OUTSIDE RECORDS SUMMARY | 2018-08-05 15:53 | XMS RPT_ITS ---
:1995 Author Organization [place] Support Name Relationship Address Phone AJAY STRICKLAND Unavailable Unavailable + rosario SNIDER ANGELA Unavailable Unavailable + KENFR Unavailable [address] + [place] [id number] DORIAN, AJAY Unavailable Unavailable + rosario SNIDER ANGELA Unavailable Unavailable + KENFR Unavailable [address] + [place] [id number] DORIAN, AJAY Unavailable Unavailable + rosario SNIDER ANGELA Unavailable Unavailable + KENFR Unavailable [address] + [place] [id number] DORIAN, AJAY Unavailable Unavailable + rosario SNIDER ANGELA Unavailable Unavailable + KENFR Unavailable [address] + [place] [id number] DORIAN, AJAY Unavailable Unavailable + rosario SNIDER ANGELA Unavailable Unavailable + KENFR Unavailable [address] + [place] [id number] DORIAN, AJAY Unavailable Unavailable + [place] CORNEJO, MINDY Unavailable Unavailable + KENFR Unavailable [address] + [place] [address] DORIAN, AJAY Unavailable Unavailable + TYLOR, rosario CORNEJO MINDY Unavailable Unavailable + KENFR Unavailable [address] + [place] [address] DORIAN, AJAY Unavailable Unavailable + BOLJACKY, rosario CORNEJO, MINDY Unavailable Unavailable + KENFR Unavailable [address] + [place] [address] DORIAN, AJAY Unavailable Unavailable + TYLOR, rosario CORNEJO, MINDY Unavailable Unavailable + KENFR Unavailable [address] + [place] [address] DORIAN, AJAY Unavailable Unavailable + TYLOR, rosario CORNEJO, MINDY Unavailable Unavailable + KENFR Unavailable [address] + [place] [address] DORIAN, AJAY Unavailable Unavailable + TYLOR, rosario CORNEJO, MINDY Unavailable Unavailable + KENFR Unavailable [address] + [place] [address] DORIAN, AJAY Unavailable Unavailable + TYLOR, rosario CORNEJO, MINDY Unavailable Unavailable + KENFR Unavailable [address] + [place] [address] DORIAN, AJAY Unavailable Unavailable + DORIANLUAN Unavailable [address] + [place] [address] DONTE BEE Unavailable [address] + [place] [address] DORIAN, AJAY Unavailable Unavailable + [place] CLEMENTE, MINDY Unavailable Unavailable + KENFR Unavailable [address] + [place] [address] DORIAN, AJAY Unavailable Unavailable + [place] CLEMENTE MINDY Unavailable Unavailable + KENFR Unavailable [address] + [place] [address] DORIAN, AJAY Unavailable Unavailable + [place] CLEMENTE, MINDY Unavailable Unavailable + KENFR Unavailable [address] + [place] [address] DORIAN, AJAY Unavailable Unavailable + [place] CLEMENTE, MINDY Unavailable Unavailable + UE Unavailable Unavailable Unavailable DORIAN, AJAY Unavailable Unavailable + [place] CLEMENTE, MINDY Unavailable Unavailable + UE Unavailable Unavailable Unavailable DORIAN, AJAY Unavailable Unavailable + [place] CLEMENTE, MINDY Unavailable Unavailable + UE Unavailable Unavailable Unavailable DORIAN, AJAY Unavailable Unavailable + [place] UE Unavailable Unavailable Unavailable DORIAN, AJAY Unavailable Unavailable + DORIAN, LUAN Unavailable [address] + [place] [address] CRISTALDONTE Unavailable [address] + [place] [address] DORIAN, AJAY Unavailable Unavailable + [place] UE Unavailable Unavailable Unavailable DORIAN, AJAY Unavailable Unavailable + [place] UE Unavailable Unavailable Unavailable DORIAN, AJAY Unavailable Unavailable + [place] UE Unavailable Unavailable Unavailable DORIAN, AJAY Unavailable Unavailable + [place] UE Unavailable Unavailable Unavailable Care Team Providers Name Role Phone DICKEY, TOMÁS Primary Care Unavailable Daniel Saldivar Attending Unavailable DICKEY, TOMÁS Primary Care Unavailable SIS SIERRA Attending Unavailable SIS SIERRA Referring Unavailable DICKEY, TOMÁS Primary Care Unavailable Ever Nagy Attending Unavailable DICKEY, TOMÁS Primary Care Unavailable Daniel Saldivar Attending Unavailable DICKEY, TOMÁS Primary Care Unavailable Mansoor Feng Attending Unavailable DICKEY, TOMÁS Primary Care Unavailable Jocelyn Palm Attending Unavailable DICKEY, TOMÁS Attending Unavailable DICKEY, TOMÁS Referring Unavailable DICKEY, TOMÁS Primary Care Unavailable DICKEY, TOMÁS Primary Care Unavailable Bossman Parish Attending Unavailable DICKEY, TOMÁS Primary Care Unavailable Ungur, Remus Attending Unavailable DICKEY, TOMÁS Primary Care Unavailable Tessa Mckinney Attending Unavailable DICKEY, TOMÁS Primary Care Unavailable Ungur, Remus Attending Unavailable DICKEY, TOMÁS Primary Care Unavailable Ungur, Remus Attending Unavailable DICKEY, TOMÁS Primary Care Unavailable Southern, Concepcion Attending Unavailable DICKEY, TOMÁS Primary Care Unavailable Melissa Weno Attending Unavailable DICKEY, TOMÁS Primary Care Unavailable Gennaro Rosario Attending Unavailable DICKEY, TOMÁS Primary Care Unavailable WenMelissao Attending Unavailable DICKEY, TOMÁS Primary Care Unavailable Mansoor Feng Attending Unavailable DICKEY, TOMÁS Primary Care Unavailable CRISTIANO IQBAL Attending Unavailable DICKEY, TOMÁS Primary Care Unavailable James Kumari Attending Unavailable DICKEY, TOMÁS Primary Care Unavailable Southern, Concepcion Attending Unavailable DICKEY, TOMÁS Primary Care Unavailable Southern, Concepcion Attending Unavailable DICKEY, TOMÁS Primary Care Unavailable LowMansoor mora Attending Unavailable DICKEY, TOMÁS Primary Care Unavailable Neyda Beckett Attending Unavailable MICHELL MADERA Admitting Unavailable MICHELL MADERA Attending Unavailable GINI, TOMÁS D Primary Care Unavailable LUAN MENDES Attending Unavailable LUAN MENDES Referring Unavailable LUAN MENDES Referring Unavailable LUAN MENDES Referring Unavailable LUAN MENDES Referring Unavailable LUAN MENDES Referring Unavailable DR. DANIEL MARCUS DO Attending Unavailable TOMÁS DICKEY MD Primary Care Unavailable HERNAN LIAO Attending Unavailable TOMÁS DICKEY MD Primary Care Unavailable PROBLEMS PROBLEMS DATE TYPE CONDITION / CODE ATTENDING STATUS SOURCE 03/26/2018 Unknown M25.531 - Pain in Southern, Active [facility] right wrist / [facility] M25.531(ICD-10) Hospital Repository 01/10/2018 Admitting Unknown / MICHELL MADERA Active [facility] diagnosis UNK(Unknown) [facility] Repository 01/02/2018 Unknown R10.9 - Tessa Mckinney Active [facility] abdominal pain / Hospital R10.9(ICD-10) 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, 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 Q85.01(ICD-10) [facility] Repository 11/13/2017 Active Unspecified NA Active [facility] convulsions / Clinic Main R56.9(ICD-10) [facility] Rep[facility] 11/13/2017 Active 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 / [facility] C72.30(ICD-10) Repository 11/13/2017 Active Tachycardia, NA Active [facility] unspecified / Clinic Main R00.0(ICD-10) [facility] Rep[facility] 11/13/2017 Active Orthostatic NA Active [facility] hypotension / Clinic Main I95.1(ICD-10) [facility] Rep[facility] 11/13/2017 Active Syncope and NA Active [facility] collapse / Clinic Main R55(ICD-10) [facility] Rep[facility] 11/13/2017 Active 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 Repository chronic kidney disease, or unspecified chronic kidney disease / I12.9(ICD-10) 10/18/2017 Unknown E16.2 - TOMÁS DICKEY Active [facility] Hypoglycemia, Community unspecified / Hospital E16.2(ICD-10) Repository 10/18/2017 Unknown 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, not intractable, without status epilepticus / G40.409(ICD-10) 08/13/2017 Unknown 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, Community left eye / Hospital H47.292(ICD-10) Repository 08/13/2017 Unknown 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 / Repository C72.30(ICD-10) 08/13/2017 Unknown 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, Community type 1 / Hospital Q85.01(ICD-10) Repository PROCEDURES PROCEDURES No Procedure Records FoundRESULTS RESULTS EMERGENCY DEPARTMENT Observed: 07/19/2018 Status: F Source: [place] SUMMARY 3:57 PM [facility] REPOSITORY [facility] Medical Records Department [address] [place] [address] Emergency Department Summary 07/19/18 1509 MR#: [id number] Acct: [id number] Name: ANA LUISA STRICKLAND Rep #: [id number] : 1995 22 From: Mansoor Feng MD PCP: Tomás Dickey MD Status: REG ER - ER Visit Summary Date of Service: 07/19/18 Chief Complaint: Headache History of Present Illness: The patient is a 22 F who presents with a headache. She started having this headache approximately 11 hours ago. It is similar to her prior migraine headaches. It radiates down into her neck. She has nausea without vomiting. She does have photophobia. No trauma. She has a history of chronic migraines. She follows with Dr. Bryant, who is been giving her Botox injections for her migraines. She has not followed up with him for a while and she thinks this is why her migraines are recurring. She denies fevers. Physical Examination: Vital signs reviewed. HEENT exam unremarkable. Heart is regular rate and rhythm without murmurs. Lungs are clear to auscultation. Abdomen is soft and nontender. Extremities reveal no edema. Skin exam normal. Neurologic exam normal. Test Results: None performed Emergency Department Course and Treatment: Patient was given Toradol and Phenergan. She feels improved. She will continue home medications. I will give her neurology follow-up Treatment Plan: [] Disposition: Discharge Impression: Migraine headache This note was generated with [employer] dictation software. It may contain incorrect words, spelling, and punctuation that were not noted in review of the chart prior to signing ED Disposition - Plan for ED Patient: Chief Complaint: Headache Referrals: Tomás Dickey MD [Primary Care Provider] - What to do if you have Problems For any increased pain, shortness of breath, bleeding, nausea or vomiting, chest pain, or any unexpected problems, contact your Primary Care Provider. Call [facility] ([phone]) or report to the closest Emergency Room. Call 911 if necessary. 07/19/18 1109 <Electronically signed by Mansoor Feng MD> Date Mansoor Feng MD Cosigner Signature (If Indicated): Date CC: Tomás Dickey MD DISCHARGE INSTRUCTION Observed: 07/19/2018 Status: F Source: [place] 3:57 PM [facility] REPOSITORY [facility] Medical Records Department [address] [place] [address] Discharge Instruction 07/19/18 1557 MR#: [id number] Acct: [id number] Name: ANA LUISA STRICKLAND Rep #: [id number] : 1995 22 From: Mansoor Feng MD PCP: Tomás Dickey MD Status: REG ER ED Disposition - Plan for ED Patient: Disposition: Home or Assisted Living Chief Complaint: Headache Instructions: ED Headache Migraine Referrals: Tomás Dickey MD [Primary Care Provider] - Kelly Bryant MD [STAFF PHYSICIAN] - What to do if you have Problems For any increased pain, shortness of breath, bleeding, nausea or vomiting, chest pain, or any unexpected problems, contact your Primary Care Provider. Call [facility] ([phone]) or report to the closest Emergency Room. Call 911 if necessary. 07/19/18 1557 <Electronically signed by Mansoor Feng MD> Date Mansoor Feng MD Cosigner Signature (If Indicated): Date CC: Tomás Dickey MD EMERGENCY DEPARTMENT Observed: 07/11/2018 Status: F Source: [place] SUMMARY 2:19 AM [facility] REPOSITORY [facility] Medical Records Department [address] [place] [address] Emergency Department Summary 07/11/18 0125 MR#: [id number] Acct: [id number] Name: ANA LUISA STRICKLAND Rep #: [id number] : 1995 22 From: Daniel Saldivar MD PCP: Tomás Dickey MD Status: DEP ER - ER Visit Summary Date of Service: 07/11/18 Chief Complaint: [] Vaginal discharge History of Present Illness: The patient is a 22 F [] complaining of vaginal discharge for the last 2 weeks. Gradual onset intermittent. Current severity is mild. She is having no bleeding. It is white. It is not super thick. She is having some urinary frequency and itching. She is not sure if she has a yeast infection. She is sexually active with no protection. No previous STDs in the past. Comes in for further evaluation. Physical Examination: [] Vital signs reviewed General: Well-nourished well-developed Head: Normocephalic atraumatic Eyes: Pupils equal round and reactive to light extraocular movements intact ENT: TMs clear no hemotympanum no trauma Neck: Nontender full range of motion Cardiovascular: Regular rate rhythm no murmurs normal S1-S2 Respiratory: No distress clear to auscultation bilaterally chest nontender Abdomen: Soft nontender nondistended normal bowel sounds no masses Pelvic exam: Normal speculum exam. Normal bimanual exam. Back: Nontender no CVA tenderness Extremities: Nontender active range of motion 4 extremities no trauma Skin: Normal color no trauma Neuro alert oriented cranial nerves II through XII intact normal strength sensation reflexes Test Results: [] Emergency Department Course and Treatment: [] Urine analysis shows no evidence of urinary tract infection. Her pelvic exam is normal. I did send gonorrhea and chlamydia testing from her urine. This will be back in 2 days. I do not think she needs treated. She is reassured. If comes back positive she will be notified. There is no evidence of trichomonas in my opinion. I do not think she has bacterial vaginosis with a normal pelvic exam. Treatment Plan: [] Disposition: [] Impression: [] Urinary frequency Reported vaginal discharge resolved This note was generated with Hangoation software. It may contain incorrect words, spelling, and punctuation that were not noted in review of the chart prior to signing ED Disposition - Plan for ED Patient: Chief Complaint: Complaint Referrals: Tomás Dickey MD [Primary Care Provider] - What to do if you have Problems For any increased pain, shortness of breath, bleeding, nausea or vomiting, chest pain, or any unexpected problems, contact your Primary Care Provider. Call [facility] ([phone]) or report to the closest Emergency Room. Call 911 if necessary. 07/11/18218 <Electronically signed by Daniel Saldivar MD> Date Daniel Saldivar MD Cosigner Signature (If Indicated): Date CC: Tomás Dickey MD DISCHARGE INSTRUCTION Observed: 07/11/2018 Status: F Source: [place] 2:19 AM [facility] REPOSITORY [facility] Medical Records Department [address] [place] [address] Discharge Instruction 07/11/18 0159 MR#: [id number] Acct: [id number] Name: ANA LUISA STRICKLAND Rep #: [id number] : 1995 22 From: Daniel Saldivar MD PCP: Tomás Dickey MD Status: [facility] ER ED Disposition - Plan for ED Patient: Disposition: Home or Assisted Living Chief Complaint: Complaint Instructions: ED Blank Diagnosis Form Referrals: Tomás Dickey MD [Primary Care Provider] - What to do if you have Problems For any increased pain, shortness of breath, bleeding, nausea or vomiting, chest pain, or any unexpected problems, contact your Primary Care Provider. Call [facility] ([phone]) or report to the closest Emergency Room. Call 911 if necessary. 07/11/18218 <Electronically signed by Daniel Saldivar MD> Date Daniel Saldivar MD Cosigner Signature (If Indicated): Date CC: Tomás Dickey MD URINALYSIS, COMPLETE Collected: 07/11/2018 Status: F Source: [place] 1:25 [facility] REPOSITORY Order Comment: Order Date: 07/11/18 How was Urine Obtained? CLEAN CATCH TYPE CODE TESTS RESULT OUT OF RANGE REFERENCE UNITS LAB L400.3000 Yellow COLOR Normal Yellow LAB L400.3050 Clear Normal CLARITY Clear LAB L400.3200 Normal mg/dl Normal GLUCOSE, UR Normal LAB L400.3300 Negative mg/dL Normal BILIRUBIN URINE Negative LAB L400.3400 Negative mg/dl Normal KETONE UR Negative LAB L400.3465 1.002-1.030 Normal SP.GR. DIPSTX 1.020 LAB L400.3550 5.0 - 8.0 pH UR Normal 5.0 LAB L400.3600 Negative mg/dl High PROT 15 DIPSTX LAB L400.3700 Normal mg/dl Normal UROBILI Normal LAB L400.3750 Negative Normal NITRITE UR Negative LAB L400.3780 Negative /ul High OCCULT BLOOD-UR 150 LAB L400.3800 Negative /ul High LEUK 25 ESTERASE LAB L400.4050 0-5 /hpf WBC Normal 0-5 SEEN LAB L400.4100 0-5 /hpf Normal RBC-UA 0-5 SEEN LAB L400.4150 5-10 /hpf SQUAM Normal EPI 5-10 SEEN LAB L400.4300 None Seen /hpf Normal BACTERIA RARE LAB L400.4350 <or=2+ /hpf 1+ Normal MUCUS, URINE Performed By: #### L400.0001 #### [facility] [address] [place], [address] CT/NG [facility] BY PCR Collected: 07/11/2018 Status: F Source: [place] 1:25 [facility] REPOSITORY Order Comment: Order Date: 07/11/18 TYPE CODE TESTS RESULT OUT OF RANGE REFERENCE UNITS LAB L8200.2100 Negative Normal Chlam Negative Trac PCR LAB L8200.2200 Negative Normal NG by Negative PCR Performed By: #### L8200.2000 #### [facility] [address] [place], [address] EMERGENCY DEPARTMENT Observed: 06/22/2018 Status: F Source: [place] SUMMARY 4:03 PM [facility] REPOSITORY [facility] Medical Records Department [address] [place] [address] Emergency Department Summary 06/22/18 1507 MR#: [id number] Acct: [id number] Name: ANA LUISA STRICKLAND Rep #: [id number] : 1995 22 From: Ever Nagy MD PCP: Tomás Dickey MD Status: REG ER - ER Visit Summary Date of Service: 06/22/18 Chief Complaint: Nausea, vomiting and diarrhea History of Present Illness: The patient is a 22 F past medical history of seizure disorder for which she takes Keppra and a history of anxiety and depression. Patient states since yesterday she has had nausea, vomiting and diarrhea. No hematemesis. No melena. Subjective fever at home. No dysuria. But decreased urinary output since she has been vomiting. No abdominal pain other than some mild cramping. There was also a concern by the squad about the home itself. There is a small child with the patient and they said there were no signs or Max in the home was in significant disarray and was very unkept. I will have nursing contact the appropriate personnel for a child follow-up in the home. Physical Examination: Young female no acute distress. Vital signs are stable. She is afebrile. She does not look septic or toxic. She does not look severely dehydrated. HEENT exam pupils round reactive light. No facial trauma. Moist mucous membranes. Neck nontender no lymphadenopathy. No meningismus. Lungs clear to auscultation bilaterally. Heart regular rhythm rate about 100 no murmur. Abdomen is soft. Nondistended. Normal bowel sounds. No localizing tenderness. Both the right upper right lower quadrants are unremarkable. No hernias or masses. No signs of obstruction. Patient is moving all 4 extremities. Skin is unremarkable. Back is nontender. Neurologically she is awake and alert with no focal motor deficits. Test Results: Patient had multiple ER visits this past year with 2 normal CAT scans and negative lab workups in the past. I do not feel she needs any imaging or labs done at this time. Emergency Department Course and Treatment: Treated with 1 L normal saline and IV Zofran. P.o. fluid challenge. On repeat exam at 1557 patient is doing well. She is drinking and holding down water. Her abdomen remains benign and nondistended. She is comfortable being discharged home. Nursing also notified children's services of [facility] to ensure a follow-up visit of the home and to check on the child. Treatment Plan: Fluids and rest. Increase diet slowly. Disposition: Discharge Impression: Acute viral gastroenteritis This note was generated with [employer] dictation software. It may contain incorrect words, spelling, and punctuation that were not noted in review of the chart prior to signing ED Disposition - Plan for ED Patient: Disposition: Home or Assisted Living Chief Complaint: Nausea/Vomiting/Diarrhea Instructions: ED Gastroenteritis Viral Prescriptions: Ondansetron [Zofran Odt] 4 mg PO Q8H PRN PRN #7 tab PRN Reason: Nausea Referrals: Tomás Dickey MD [Primary Care Provider] - Additional Instructions: Plenty of fluids and rest. Increase diet slowly as tolerated. Zofran as needed for nausea. Follow-up with Dr. Dickey if not improving. What to do if you have Problems For any increased pain, shortness of breath, bleeding, nausea or vomiting, chest pain, or any unexpected problems, contact your Primary Care Provider. Call [facility] ([phone]) or report to the closest Emergency Room. Call 911 if necessary. 06/22/18 1603 <Electronically signed by Ever Nagy MD> Date Ever Nagy MD Cosigner Signature (If Indicated): Date CC: Tomás Dickey MD DISCHARGE INSTRUCTION Observed: 06/22/2018 Status: F Source: [place] 4:03 [facility] Medical Records Department [address] [place] [address] Discharge Instruction 06/22/18 1511 MR#: [id number] Acct: [id number] Name: ANA LUISA STRICKLAND Rep #: [id number] : 1995 22 From: Ever Nagy MD PCP: Tomás Dickey MD Status: [facility] ER ED Disposition - Plan for ED Patient: Disposition: Home or Assisted Living Chief Complaint: Nausea/Vomiting/Diarrhea Instructions: ED Gastroenteritis Viral Prescriptions: Ondansetron [Zofran Odt] 4 mg PO Q8H PRN PRN #7 tab PRN Reason: Nausea Referrals: Tomás Dickey MD [Primary Care Provider] - Additional Instructions: Plenty of fluids and rest. Increase diet slowly as tolerated. Zofran as needed for nausea. Follow-up with Dr. Dickey if not improving. What to do if you have Problems For any increased pain, shortness of breath, bleeding, nausea or vomiting, chest pain, or any unexpected problems, contact your Primary Care Provider. Call [facility] ([phone]) or report to the closest Emergency Room. Call 911 if necessary. 06/22/18 1603 <Electronically signed by Ever Nagy MD> Date Ever Nagy MD Cosigner Signature (If Indicated): Date CC: Tomás Dickey MD EMERGENCY DEPARTMENT Observed: 06/20/2018 Status: F Source: [place] SUMMARY 7:15 AM [facility] Medical Records Department [address] [place] [address] Emergency Department Summary 06/19/18 2314 MR#: [id number] Acct: [id number] Name: ANA LUISA STRICKLAND Rep #: [id number] : 1995 22 From: Daniel Saldivar MD PCP: Tomás Dickey MD Status: DEP ER - ER Visit Summary Date of Service: 06/19/18 Chief Complaint: [] Posterior lump skin abscess History of Present Illness: The patient is a 22 F posterior neck skin abscess for the last 5 days. Started out as a small pimple and is gotten bigger and she is never had one before. She said is giving her a headache. Comes in for further evaluation. No home treatment. Physical Examination: [] Vital signs reviewed General: Well-nourished well-developed Head: Normocephalic atraumatic Eyes: Pupils equal round and reactive to light extraocular movements intact ENT: TMs clear no hemotympanum no trauma Neck: Nontender full range of motion. 0.5 x 0.5 very mild red hard skin abscess on the back of her neck spinous process #5. No head on it. No drainage. No cellulitis Cardiovascular: Regular rate rhythm no murmurs normal S1-S2 Respiratory: No distress clear to auscultation bilaterally chest nontender Abdomen: Soft nontender nondistended normal bowel sounds no masses Back: Nontender no CVA tenderness Extremities: Nontender active range of motion 4 extremities no trauma Skin: See above Neuro alert oriented cranial nerves II through XII intact normal strength sensation reflexes Test Results: [] Emergency Department Course and Treatment: [] Patient given a dose of Toradol for her discomfort. She consented to incision and drainage. Wash well iodine and 2 cc of 1% lidocaine was instilled into the area. A small linear incision was made across the diameter of the wound. A mild amount of purulence. Squeezed out and washed with saline. She is too superficial to pack. Patient will continue wound management and follow-up as an outpatient. I do not that she needs antibiotics. Treatment Plan: [] Disposition: [] Impression: [] Posterior neck skin abscess status post incision and drainage This note was generated with D.[employer] dictation software. It may contain incorrect words, spelling, and punctuation that were not noted in review of the chart prior to signing ED Disposition - Plan for ED Patient: Chief Complaint: Abscess Referrals: Tomás Dickey MD [Primary Care Provider] - What to do if you have Problems For any increased pain, shortness of breath, bleeding, nausea or vomiting, chest pain, or any unexpected problems, contact your Primary Care Provider. Call [facility] ([phone]) or report to the closest Emergency Room. Call 911 if necessary. 06/20/18714 <Electronically signed by Daniel Saldivar MD> Date Daniel Saldivar MD Cosigner Signature (If Indicated): Date _ CC: Tomás Dickey MD DISCHARGE INSTRUCTION Observed: 06/20/2018 Status: F Source: [place] 7:15 AM [facility] Medical Records Department [address] [place] [address] [place] [address] Discharge Instruction 06/19/18 2334 MR#: [id number] Acct: [id number] Name: ANA LUISA STRICKLAND Rep #: [id number] : 1995 22 From: Daniel Saldivar MD PCP: Tomás Dickey MD Status: DEP ER ED Disposition - Plan for ED Patient: Disposition: Home or Assisted Living Chief Complaint: Abscess Instructions: ED Abscess IandD Referrals: Tomás Dickey MD [Primary Care Provider] - What to do if you have Problems For any increased pain, shortness of breath, bleeding, nausea or vomiting, chest pain, or any unexpected problems, contact your Primary Care Provider. Call [facility] ([phone]) or report to the closest Emergency Room. Call 911 if necessary. 06/20/18714 <Electronically signed by Daneil Saldivar MD> Date Daniel Saldivar MD Cosigner Signature (If Indicated): Date CC: Tomás Dickey MD EMERGENCY DEPARTMENT Observed: 06/01/2018 Status: F Source: [place] SUMMARY 1:43 AM [facility] Medical Records Department [address] [place] [address] Emergency Department Summary 05/31/18 2312 MR#: [id number] Acct: [id number] Name: ANA LUISA STRICKLAND Rep #: [id number] : 1995 22 From: Neyda Beckett MD PCP: Tomás Dickey MD Status: DEP ER - ER Visit Summary Date of Service: 05/31/18 Chief Complaint: Back pain History of Present Illness: The patient is a 22 F who presents for 3 weeks of back pain. Patient states she has diffuse bilateral back pain that is worse with bending over, picking things up and movement in general. She is tried Aleve, stretching and massage without improvement. She fell at work prior to onset, but landed on her left arm and did not note any injury to her back. However the back pain began after the fall. Patient has history of scoliosis. She has medications for seizures and depression. Physical Examination: Vital signs: afebrile, hemodynamically stable, no hypoxia on room air General: well nourished, well developed, in no distress Skin: warm, dry, no rash, no pallor HEENT: normocephalic and atraumatic; PERRL, EOMI, moist mucous membranes Cardiovascular: regular rate and rhythm without murmurs, no peripheral edema, 2+ pulses all distal extremities Respiratory: No increased work of breathing, lungs are clear to auscultation bilaterally, no rales, rhonchi or wheezing Abdominal: Abdomen is soft, nontender with normoactive bowel sounds, no guarding or rebound, no masses Back: No midline tenderness, deformities or step-offs. Diffuse tenderness to palpation of the paraspinal musculature in the thoracolumbar region. No rash. Normal gait. MSK: Moves all extremities, no deformities, normal strength Neuro: Awake and alert, oriented 4. No facial droop, sensation and motor function intact and symmetric Test Results: [] Emergency Department Course and Treatment: Patient presents with diffuse back pain for 3 weeks, with an exam showing muscular tenderness diffusely in the back. She has no history that would be concerning for epidural abscess or hematoma. No history of IV drug use. No urinary or bowel incontinence or retention, no saddle anesthesia, no weakness in the legs. No significant mechanism of trauma, and given the diffuse paraspinal nature of the pain with no point tenderness in the spine, x-ray was not performed as this would be unlikely to be a fracture or dislocation. She was given a dose of Flexeril and ibuprofen for pain. She is out of her diazepam, and she states she will be able to get it filled again for several months, thus I prescribed the Flexeril. I told her she cannot take diazepam and Flexeril at the same time, as it will be overly sedating. Patient has ibuprofen listed as an allergy, however patient has taken it previously and also takes Aleve without difficulty. She does not have a true allergy to ibuprofen. She was given a prescription for Flexeril and ibuprofen and discharged home. Treatment Plan: [] Disposition: [] Impression: Lumbosacral strain This note was generated with [employer] dictation software. It may contain incorrect words, spelling, and punctuation that were not noted in review of the chart prior to signing ED Disposition - Plan for ED Patient: Chief Complaint: Back Referrals: Tomás Dickey MD [Primary Care Provider] - What to do if you have Problems For any increased pain, shortness of breath, bleeding, nausea or vomiting, chest pain, or any unexpected problems, contact your Primary Care Provider. Call [facility] ([phone]) or report to the closest Emergency Room. Call 911 if necessary. 06/01/18 0143 <Electronically signed by Neyda Beckett MD> Date Neyda Beckett MD Cosigner Signature (If Indicated): Date CC: Tomás Dickey MD DISCHARGE INSTRUCTION Observed: 06/01/2018 Status: F Source: [place] 1:05 AM [facility] Medical Records Department [address] [place] [address] Discharge Instruction 05/31/18 2316 MR#: [id number] Acct: [id number] Name: ANA LUISA STRICKLAND Rep #: [id number] : 1995 22 From: Neyda Beckett MD PCP: Tomás Dickey MD Status: DEP ER ED Disposition - Plan for ED Patient: Disposition: Home or Assisted Living Chief Complaint: Back Instructions: ED Sprain Strain Lumbar Prescriptions: Ibuprofen [Ibu] 400 mg PO 4X/DAY PRN PRN #20 tab PRN Reason: Pain Cyclobenzaprine [Flexeril] 5 mg PO TID PRN #15 tab PRN Reason: Muscle Spasm Referrals: Tomás Dickey MD [Primary Care Provider] - As soon as possible Additional Instructions: You may use Aleve or ibuprofen as needed for your back pain. Do not take them both at the same time, as they are similar medications. You may use the Flexeril for muscle spasm, but do not take it at the same time as your Valium. If you have any worsening of your condition or any new concerning symptoms, please return immediately to the emergency department for another evaluation. What to do if you have Problems For any increased pain, shortness of breath, bleeding, nausea or vomiting, chest pain, or any unexpected problems, contact your Primary Care Provider. Call [facility] ([phone]) or report to the closest Emergency Room. Call 911 if necessary. 06/01/18 0105 <Electronically signed by Neyda Beckett MD> Date Neyda Beckett MD Cosigner Signature (If Indicated): Date CC: Tomás Dickey MD EMERGENCY DEPARTMENT Observed: 05/15/2018 Status: F Source: [place] SUMMARY 10:51 PM [facility] Medical Records Department [address] [place] [address] Emergency Department Summary 05/15/18 2102 MR#: [id number] Acct: [id number] Name: ANA LUISA STRICKLAND Rep #: [id number] : 1995 22 From: Mansoor Feng MD PCP: Tomás Dickey MD Status: DEP ER - ER Visit Summary Date of Service: 05/15/18 Chief Complaint: Anxiety History of Present Illness: The patient is a 22 F who states that she feels anxious. She states that she had more stressors today at home. She was having some family issues. She stayed home from work. She tried her diazepam which was not working. She states that she has been having increase of her anxiety has having trouble getting into her doctor. He denies being suicidal or homicidal. Physical Examination: Vital signs reviewed. HEENT exam unremarkable. Heart is regular rate and rhythm without murmurs. Lungs are clear to auscultation. Abdomen is soft and nontender. Extremities reveal no edema. Skin exam normal. Neurologic exam normal. Patient is resting comfortably. She does not appear to be internally stimulated or overly anxious. Test Results: [] Emergency Department Course and Treatment: Patient was treated with Vistaril here. I will give her a prescription of Vistaril to take at home. She will need to call her PCP for follow-up for further evaluation. Treatment Plan: [] Disposition: Discharge Impression: Anxiety This note was generated with [employer] dictation software. It may contain incorrect words, spelling, and punctuation that were not noted in review of the chart prior to signing ED Disposition - Plan for ED Patient: Disposition: Home or Assisted Living Chief Complaint: Anxiety Instructions: ED Panic Attack Prescriptions: hydrOXYzine pamoate capsule [Vistaril] 50 mg PO TID PRN PRN #30 cap PRN Reason: Anxiety Referrals: Tomás Dickey MD [Primary Care Provider] - What to do if you have Problems For any increased pain, shortness of breath, bleeding, nausea or vomiting, chest pain, or any unexpected problems, contact your Primary Care Provider. Call [facility] ([phone]) or report to the closest Emergency Room. Call 911 if necessary. 05/15/18 8848 <Electronically signed by Mansoor Feng MD> Date Mansoor Feng MD Cosigner Signature (If Indicated): Date CC: Tomás Dickey MD DISCHARGE INSTRUCTION Observed: 05/15/2018 Status: F Source: [place] 9:03 PM [facility] Medical Records Department [address] [place] [address] Discharge Instruction 05/15/182101 MR#: [id number] Acct: [id number] Name: ANA LUISA STRICKLAND Rep #: [id number] : 1995 22 From: Mansoor Feng MD PCP: Tomás Dickey MD Status: REG ER ED Disposition - Plan for ED Patient: Disposition: Home or Assisted Living Chief Complaint: Anxiety Instructions: ED Panic Attack Prescriptions: hydrOXYzine pamoate capsule [Vistaril] 50 mg PO TID PRN PRN #30 cap PRN Reason: Anxiety Referrals: Tomás Dickey MD [Primary Care Provider] - What to do if you have Problems For any increased pain, shortness of breath, bleeding, nausea or vomiting, chest pain, or any unexpected problems, contact your Primary Care Provider. Call [facility] ([phone]) or report to the closest Emergency Room. Call 911 if necessary. 05/15/182102 <Electronically signed by Mansoor Feng MD> Date Mansoor Denson Signature (If Indicated): Date CC: Tomás Dickey MD EMERGENCY DEPARTMENT Observed: 05/12/2018 Status: F Source: [place] SUMMARY 12:51 AM [facility] Medical Records Department [address] [place] [address] Emergency Department Summary 05/11/18 2350 MR#: [id number] Acct: [id number] Name: ANA LUISA STRICKLAND Rep #: [id number] : 1995 22 From: Concepcion Gonzales MD PCP: Tomás Dickey MD Status: REG ER - ER Visit Summary Date of Service: 05/11/18 Chief Complaint: High blood pressure History of Present Illness: The patient is a 22 F presenting with elevated blood pressure. She states she checked her blood pressure at home and it was running high. She states she has felt tired today. She also complains of migraine. She states this started earlier today and was gradual in onset similar to her previous migraines. She has sensitivity to light. She denies trauma. She did fall yesterday but she did not hit her head. Denies other complaints. Physical Examination: Vitals are stable. Blood pressure 128/99. Patient is afebrile. Alert no acute distress. HEENT exam is unremarkable. Neck is supple. No meningismus Lungs are clear and equal bilaterally. Heart is regular rate and rhythm. Abdomen is soft nontender nondistended. Extremities are unremarkable. Skin is warm and dry. No focal neurologic deficit. Remainder of exam is unremarkable. Emergency Department Course and Treatment: Patient is given Reglan and Benadryl for her migraine. On reevaluation she is feeling improved. Repeat blood pressure is 124/105. She is advised to follow-up with her primary care physician for blood pressure recheck. Advised return to ED for any worsening complaints. Disposition: Discharge home Impression: Headache This note was generated with [employer] dictation software. It may contain incorrect words, spelling, and punctuation that were not noted in review of the chart prior to signing ED Disposition - Plan for ED Patient: Chief Complaint: Hypertension Instructions: ED Cephalgia Unspecified Referrals: Tomás Dickey MD [Primary Care Provider] - What to do if you have Problems For any increased pain, shortness of breath, bleeding, nausea or vomiting, chest pain, or any unexpected problems, contact your Primary Care Provider. Call [facility] ([phone]) or report to the closest Emergency Room. Call 911 if necessary. 05/12/18 0051 <Electronically signed by Concepcion Gonzales MD> Date Concepcion Gonzales MD Cosigner Signature (If Indicated): Date CC: Tomás Dickey MD DISCHARGE INSTRUCTION Observed: 05/11/2018 Status: F Source: [place] 11:52 PM [facility] Medical Records Department [address] [facility] [place] [address] Discharge Instruction 05/11/182351 MR#: [id number] Acct: [id number] Name: ANA LUISA STRICKLAND Rep #: [id number] : 1995 22 From: Concepcion Gonzales MD PCP: Tomás Dickey MD Status: REG ER ED Disposition - Plan for ED Patient: Chief Complaint: Hypertension Instructions: ED Cephalgia Unspecified Referrals: Tomás Dickey MD [Primary Care Provider] - What to do if you have Problems For any increased pain, shortness of breath, bleeding, nausea or vomiting, chest pain, or any unexpected problems, contact your Primary Care Provider. Call [facility] ([phone]) or report to the closest Emergency Room. Call 911 if necessary. 05/11/182351 <Electronically signed by Concepcion Gonzales MD> Date Concepcion Gonzales MD Cosigner Signature (If Indicated): Date CC: Tomás Dickey MD EMERGENCY DEPARTMENT Observed: 05/10/2018 Status: F Source: [place] SUMMARY 10:00 PM [facility] Medical Records Department [address] [facility] [place] [address] Emergency Department Summary 05/10/182044 MR#: [id number] Acct: [id number] Name: ANA LUISA STRICKLAND Rep #: [id number] : 1995 22 From: Concepcion Gonzales MD PCP: Tomás Dickey MD Status: REG ER - ER Visit Summary Date of Service: 05/10/18 Chief Complaint: Fall History of Present Illness: The patient is a 22 F presenting after fall. Patient states she slipped at work. She landed on her left upper extremity. She did not hit her head or lose consciousness. She has a chronic deformity to her left upper extremity secondary to surgery as a child. Denies other complaints. Physical Examination: Vitals are stable. Patient is afebrile. Alert no acute distress. HEENT exam is unremarkable. Neck is nontender Lungs are clear and equal bilaterally. Heart is regular rate and rhythm. Extremities left wrist, forearm and elbow diffuse tenderness, painful range of motion, normal distal pulse. Skin is warm and dry. No focal neurologic deficit. Remainder of exam is unremarkable. 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 Patient was given OxyIR x1 and a prescription for naproxen. She is given a sling and a Velcro wrist splint. She is advised to follow-up with corporate care. Advised return to ED if worsening complaints. Disposition: Discharge home Impression: Left upper extremity contusion This note was generated with [employer] dictation software. It may contain incorrect words, spelling, and punctuation that were not noted in review of the chart prior to signing ED Disposition - Plan for ED Patient: Chief Complaint: Upper Extremity Injury Instructions: ED Contusion Upper Ext Prescriptions: Naproxen [Naprosyn] 500 mg PO BID PRN #20 tablet [facility] - Tomás Dickey MD [Primary Care Provider] - What to do if you have Problems For any increased pain, shortness of breath, bleeding, nausea or vomiting, chest pain, or any unexpected problems, contact your Primary Care Provider. Call [facility] ([phone]) or report to the closest Emergency Room. Call 911 if necessary. 05/10/18 2200 <Electronically signed by Concepcion Gonzales MD> Date Concepcion Gonzales MD Cosigner Signature (If Indicated): Date CC: Tomás Dickey MD DISCHARGE INSTRUCTION Observed: 05/10/2018 Status: F Source: [place] 9:55 PM [facility] Medical Records Department [address] [place] [address] Discharge Instruction 05/10/182153 MR#: [id number] Acct: [id number] Name: ANA LUISA STRICKLAND Rep #: [id number] : 1995 22 From: Concepcion Gonzales MD PCP: Tomás Dickey MD Status: REG ER ED Disposition - Plan for ED Patient: Chief Complaint: Upper Extremity Injury Instructions: ED Contusion Upper Ext Prescriptions: Naproxen [Naprosyn] 500 mg PO BID PRN #20 tablet Referrals: Tomás Dickey MD [Primary Care Provider] - [facility] [GROUP OF PHYSICIANS] - What to do if you have Problems For any increased pain, shortness of breath, bleeding, nausea or vomiting, chest pain, or any unexpected problems, contact your Primary Care Provider. Call [facility] ([phone]) or report to the closest Emergency Room. Call 911 if necessary. 05/10/182154 <Electronically signed by Concepcion Gonzales MD> Date Concepcion Gonzales MD Cosigner Signature (If Indicated): Date CC: Tomás Dickey MD FOREARM 2 VIEWS Observed: 05/10/2018 Status: F Source: [place] 8:38 PM [facility] Imaging Services [address] [place] [address] Forearm 2 Views MR#: [id number] Acct: [id number] Name: ANA LUISA STRICKLAND Rep #: [id number] : 1995 F 22 From: Juanjose Qureshi MD PCP: Tomás Dickey MD Status: PRE ER Study: Forearm 2 Views Date of Exam: 05/10/18 Exam# [id number] Ordering Dr: Concepcion Gonzales MD STUDY: X-RAY - LEFT RADIUS AND ULNA REASON FOR EXAM: Female, 22 years old. Left arm pain after fall. History of congenital abnormality. TECHNIQUE: 2 view(s) of the forearm. COMPARISON: None. FINDINGS: There is no demonstrated soft tissue swelling. There is bowing of the radius. 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 There is marked hypoplasia of the distal ulna. There is mild deformity of the elbow joint itself. 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 Electronically Signed: Juanjose Qureshi MD at 21:03 EDT , Service support , CC: Concepcion Gonzales MD; Tomás Dickey MD Director Of Campus Recreation: Signed ELBOW MIN 3 VIEWS Observed: 05/10/2018 Status: F Source: [place] 8:38 PM [facility] Imaging Services [address] [place] [address] Elbow min 3 Views MR#: [id number] Acct: [id number] Name: ANA LUISA STRICKLAND Rep #: [id number] : 1995 F 22 From: Juanjose Qureshi MD PCP: Tomás Dickey MD Status: REG ER Study: Elbow min 3 Views Date of Exam: 05/10/18 Exam# [id number] Ordering Dr: Concepcion Gonzales MD STUDY: X-RAY - LEFT ELBOW REASON FOR EXAM: Female, 22 years old. Fall. Pain. History of congenital abnormality. TECHNIQUE: 3 view(s) of the elbow. COMPARISON: None. FINDINGS: There is deformity of the elbow joint. 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 The soft tissue structures are unremarkable. 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 Electronically Signed: Juanjose Qureshi MD at 21:14 EDT , Service support , CC: Concepcion Gonzales MD; Tomás Dickey MD Director Of Campus Recreation: Signed WRIST MIN 3 VIEWS Observed: 05/10/2018 Status: F Source: [place] 8:38 PM [facility] Imaging Services [address] [place] [id number] Wrist min 3 Views MR#: [id number] Acct: [id number] Name: ANA LUISA STRICKLAND Rep #: [id number] : 1995 F 22 From: Juanjose Qureshi MD PCP: Tomás Dickey MD Status: [facility] ER Study: Wrist min 3 Views Date of Exam: 05/10/18 Exam# [id number] Ordering Dr: Concepcion Gonzales MD STUDY: X-RAY - LEFT WRIST REASON FOR EXAM: Female, 22 years old. Fall. Pain. History of congenital abnormality. TECHNIQUE: 3 view(s) of the wrist were obtained. COMPARISON: None. FINDINGS: There is hypoplasia of the distal ulna. There is slight subluxation of the carpus medially. Normal distal radioulnar articulation. Normal carpal bones. Normal carpal articulations. Normal carpometacarpal articulation of the thumb. Normal second through fifth carpometacarpal articulations. Normal visualized metacarpal bones. The soft tissue structures are unremarkable. 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 Electronically Signed: Juanjose Qureshi MD at 21:23 EDT , Service support , CC: Concepcion Gonzales MD; Tomás Dickey MD Director Of Campus Recreation: Signed EMERGENCY DEPARTMENT Observed: 05/06/2018 Status: F Source: [place] SUMMARY 9:05 AM [facility] Medical Records Department [address] [place] [address] Emergency Department Summary 12/09/17 0335 MR#: [id number] Acct: [id number] Name: ANA LUISA STRICKLAND Rep #: [id number] : 1995 22 From: Tessa Mckinney DO PCP: Tomás Dickey MD Status: DEP ER - ER Visit Summary Date of Service: 12/09/17 Chief Complaint: [] Abdominal pain History of Present Illness: The patient is a 22 F [] complaining of bilateral lower quadrant abdominal pain. Reports the pain was diffuse prior to arrival. Reports nausea and vomiting. Denies hematemesis. Denies likelihood of . Reports past medical history of seizure disorder, neurofibromatosis, anxiety, depression, migraine headaches. Physical Examination: [] Afebrile, vital signs stable. 22-year-old female no acute distress. Cardiovascular exam is regular rate and rhythm. Lungs are clear to auscultation. Abdomen is soft with mild diffuse tenderness. No guarding rebound noted. Test Results: [] CBC, BMP, LFTs, lipase all within normal limits. HCG negative. CT of the abdomen pelvis without contrast is negative. Emergency Department Course and Treatment: [] Patient given intravenous morphine, Phenergan, fluids. On serial exam she required 1 additional dose of pain medication. Her laboratory and diagnostic workup were negative and she was encouraged to follow with her primary care physician. Treatment Plan: [] Follow-up with primary care physician. Disposition: [] Discharge, stable. Impression: [] Abdominal pain, unknown etiology This note was generated with [employer] dictation software. It may contain incorrect words, spelling, and punctuation that were not noted in review of the chart prior to signing ED Disposition - Plan for ED Patient: Chief Complaint: Abd Pain Referrals: Tomás Dickey MD [Primary Care Provider] - What to do if you have Problems For any increased pain, shortness of breath, bleeding, nausea or vomiting, chest pain, or any unexpected problems, contact your Primary Care Provider. Call [facility] ([phone]) or report to the closest Emergency Room. Call 911 if necessary. Date Tessa Faye DO Cosigner Signature (If Indicated): Date CC: Tomás Dickey MD EMERGENCY DEPARTMENT Observed: 05/02/2018 Status: F Source: [place] SUMMARY 9:49 AM [facility] Medical Records Department [address] [place] [address] Emergency Department Summary 05/02/18 0943 MR#: [id number] Acct: [id number] Name: ANA LUISA STRICKLAND Rep #: [id number] : 1995 22 From: James Kumari DO PCP: Tomás Dickey MD Status: REG ER - ER Visit Summary Date of Service: 05/02/18 Chief Complaint: Cough History of Present Illness: The patient is a 22 F who presents with cough and an episode of hemoptysis. Patient states she has had a cough for 2 weeks. Patient states she has been coughing up some green sputum but today had an episode of hemoptysis. Patient states she coughed up approximately 1 teaspoonful of blood today. Patient has not had any further episodes of hemoptysis since that time. Patient denies any chest pain. Patient states she does feel short of breath. 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 Patient admits to some nausea and some myalgias. Patient also admits to some sinus pressure over her maxillary sinuses. Physical Examination: Vital signs are stable. Patient is afebrile. Patient is in no acute distress. Oral mucosa is pink and moist. Nasal mucosa is congested. There is tenderness over the maxillary sinuses bilaterally. Neck is supple. Trachea is midline. There is no JVD or lymphadenopathy noted. Heart was regular rate and rhythm. Lungs are clear and equal bilaterally. There is good respiratory effort noted. Abdomen is soft. Bowel sounds are normal. There is no tenderness. There is no rebound or guarding noted. The remaining physical exam is within normal limits. Emergency Department Course and Treatment: Prior records from her last visit were reviewed. Patient was given a 3-day course of Bactrim at that time for possible urinary tract infection. Patient was not treated for bacterial bronchitis at that time. Given the patient's duration of symptoms and an episode of hemoptysis today, I feel it is reasonable to treat the patient for possible bacterial infection with doxycycline. Patient was given a note for work for today. Patient was instructed to follow-up with her primary care physician in 5-7 days. Patient understood and was agreeable with the plan. All questions were answered. Disposition: Discharged home Impression: Acute bronchitis This note was generated with [employer] dictation software. It may contain incorrect words, spelling, and punctuation that were not noted in review of the chart prior to signing ED Disposition - Plan for ED Patient: Disposition: Home or Assisted Living Chief Complaint: Cough Diagnosis: Acute bronchitis Instructions: ED Bronchitis Asthmatic Prescriptions: Doxycycline Monohydrate 100 mg PO BID #14 cap Referrals: Tomás Dickey MD [Primary Care Provider] - What to do if you have Problems For any increased pain, shortness of breath, bleeding, nausea or vomiting, chest pain, or any unexpected problems, contact your Primary Care Provider. Call [facility] ([phone]) or report to the closest Emergency Room. Call 911 if necessary. 05/02/18 0949 <Electronically signed by James Kumari DO> Date James Kumari DO Cosigner Signature (If Indicated): Date CC: Tomás Dickey MD EMERGENCY DEPARTMENT Observed: 04/21/2018 Status: F Source: [place] SUMMARY 2:10 AM [facility] REPOSITORY [facility] Medical Records Department [address] [place] [address] Emergency Department Summary 04/21/18 0205 MR#: [id number] Acct: [id number] Name: ANA LUISA STRICKLAND Rep #: [id number] : 1995 22 From: Cristiano Iqbal MD PCP: Tomás Dickey MD Status: REG ER History of Present Illness Chief Complaint: General Illness Informant: Patient Onset: Days - 2-3 Context: Gradual Onset Timing: Continuous Quality: migraine Location: bifrontal Current Severity: Severe Maximum Severity: Severe Worsened by: light, sound Relieved by: nothing Associated Symptoms: cold that my family gave me, suprapubic abd discomfort, ur freq - Past Medical History (1) Migraines Status: Chronic Past Medical History - Allergies and Home Meds Allergies/Adverse Reactions: Allergies acetaminophen [From Tylenol] Adverse Reaction (Verified 04/20/18 22:19) Unknown states cannot take with seizure meds diphenhydramine [From Benadryl] Adverse Reaction (Verified 04/20/18 22:19) Unknown states cannot take with seizure meds ibuprofen [From Motrin] Adverse Reaction (Verified 04/20/18 22:19) Unknown states cannot take with seizure meds Primary Care Physician: Tomás Dickey MD [Primary Care Provider] - Smoking Status: Current every day smoker Review of Systems General: Denies: Chills, Fever, Sweats Eyes: Denies: Visual changes - bilaterally, Diplopia ENT: Reports: Bilateral ear pain, Rhinorrhea - and congestion, Sore throat - mild Cardiovascular: Denies: Chest pain, Palpitations Respiratory: Reports: Cough. Denies: Dyspnea, Dyspnea on exertion Gastrointestinal: Reports: Abdominal pain, Nausea, Vomiting - AMs more. Denies: Diarrhea, Melena, Hematochezia Genitourinary: Reports: Frequency. Denies: Dysuria, Hematuria Musculoskeletal: Reports: Back pain - low middle. Denies: Neck pain, Swelling, Extremity Pain Skin: Denies: Rash Neurological: Reports: Parasthesia - bilat hands, similar to prior migraines. Denies: Headache, Weakness, Numbness Physical Exam Vital Signs/Narrative: Vital Signs 04/20/18 22:16 97.5 F L 115 H 18 143/103 H 99 Inital Vital Signs reviewed: Yes General: Well nourished, Well developed, - - nad Head: Normocephalic, Atraumatic Eyes: Perrl, EOMI ENT: Moist mucous membranes, No rhinorrhea Neck: Supple - w/o meningismus, Nontender Cardiovascular: Regular rate, Regular rhythm, No murmurs Respiratory: No distress, CTA bilaterally, Chest nontender Abdomen: Soft, Nondistended, Normal bowel sounds, Tender - mild suprapubic only Back: Nontender, Normal Inspection Extremities: Nontender, No edema Skin: Normal color, No rash Neurological: Alert, Oriented x3, Cranial nerves II-XII grossly intact, Normal Strength, Normal Sensation Psychological: Normal affect Diagnostic/Tx/Re-eval Laboratory Tests - Medical Decision Making Patient states that she has been vomiting and more so in the mornings. is negative. She has had migraines off and on but it has been worse in the past couple days, she has had a cold for 2 weeks or more, each family member in her household has successfully become ill with the same symptoms indicating that it is more likely viral. She was given Reglan and Toradol for her symptoms and is significant better. Her urinalysis shows not many white cells, and significant a number of epithelials, but I suspect she may have a UTI and I think it is reasonable to try her on a 3-day course of Bactrim to see if that helps her symptoms. She is comfortable going home and following up. ED Disposition - Plan for ED Patient: Disposition: Home or Assisted Living Chief Complaint: General Illness Diagnosis: Migraine headache, Viral URI with cough, Cystitis without hematuria Instructions: ED Headache Migraine, ED UTI Cystitis Female Prescriptions: Smz/Tmp Ds [Bactrim Ds] 1 tab PO BID #6 tab Referrals: Tomás Dickey MD [Primary Care Provider] - 1 Week if not improving What to do if you have Problems For any increased pain, shortness of breath, bleeding, nausea or vomiting, chest pain, or any unexpected problems, contact your Primary Care Provider. Call [facility] ([phone]) or report to the closest Emergency Room. Call 911 if necessary. 04/21/18 0210 <Electronically signed by Cristiano Iqbal MD> Date Cristiano Iqbal MD Cosigner Signature (If Indicated): Date CC: Tomás Dickey MD ,URINE Collected: 04/21/2018 Status: F Source: [place] 12:10 AM [facility] REPOSITORY Order Comment: Order Date: 04/20/18 TYPE CODE TESTS RESULT OUT OF REFERENCE UNITS RANGE LAB L400.8000 Negative Normal HCGUQUAL Negative Result Comment: Very dilute urine specimens, as indicated by a low specific gravity, may not contain medical office representative levels of hCG. If is still suspected, a first morning urine specimen should be collected 48 hours later and tested. Performed By: #### L400.7600 #### [facility] [address] [place], [address] URINALYSIS, COMPLETE Collected: 04/21/2018 Status: F Source: [place] 12:10 AM [facility] REPOSITORY Order Comment: Order Date: 04/20/18 How was Urine Obtained? CLEAN CATCH TYPE CODE TESTS RESULT OUT OF RANGE REFERENCE UNITS LAB L400.3000 Yellow COLOR Normal Yellow LAB L400.3050 Clear Normal CLARITY Sl. Cloudy LAB L400.3200 Normal mg/dl Normal GLUCOSE, UR Normal LAB L400.3300 Negative mg/dL Normal BILIRUBIN URINE Negative LAB L400.3400 Negative mg/dl Normal KETONE UR Negative LAB L400.3465 1.002-1.030 Normal SP.GR. DIPSTX 1.025 LAB L400.3550 5.0 - 8.0 pH UR Normal 5.0 LAB L400.3600 Negative mg/dl High PROT 15 DIPSTX LAB L400.3700 Normal mg/dl High 1 UROBILI LAB L400.3750 Negative Normal NITRITE UR Negative LAB L400.3780 Negative /ul High 50 OCCULT BLOOD-UR LAB L400.3800 Negative /ul High LEUK 25 ESTERASE LAB L400.4050 0-5 /hpf WBC Normal 5-10 SEEN LAB L400.4100 0-5 /hpf Normal RBC-UA 5-10 SEEN LAB L400.4150 5-10 /hpf SQUAM Normal EPI 50-100 SEEN LAB L400.4300 None Seen /hpf 0 Normal BACTERIA SEEN LAB L400.4350 <or=2+ /hpf 0 Normal MUCUS, URINE SEEN Performed By: #### L400.0001 #### [facility] [address] [facility] [place], [place], [address] DISCHARGE INSTRUCTION Observed: 04/12/2018 Status: F Source: [place] 9:05 PM [facility] REPOSITORY [facility] Medical Records Department [address] [place] [address] Discharge Instruction 04/12/182103 MR#: [id number] Acct: [id number] Name: ANA LUISA STRICKLAND Rep #: [id number] : 1995 22 From: Mansoor Feng MD PCP: Tomás Dickey MD Status: PRE ER ED Disposition - Plan for ED Patient: Disposition: Home or Assisted Living Chief Complaint: Suture Remv Instructions: ED Wound Check Sutr Remove No Infec Referrals: Tomás Dickey MD [Primary Care Provider] - What to do if you have Problems For any increased pain, shortness of breath, bleeding, nausea or vomiting, chest pain, or any unexpected problems, contact your Primary Care Provider. Call [facility] ([phone]) or report to the closest Emergency Room. Call 911 if necessary. 04/12/182104 <Electronically signed by Mansoor Feng MD> Date Mansoor Feng MD Cosigner Signature (If Indicated): Date CC: Tomás Dickey MD EMERGENCY DEPARTMENT Observed: 04/12/2018 Status: F Source: [place] SUMMARY 9:04 PM [facility] RE[facility]ITORY [facility] Medical Records Department [address] [address] Emergency Department Summary 04/12/182102 MR#: [id number] Acct: [id number] Name: ANA LUISA STRICKLAND Rep #: [id number] : 1995 22 From: Mansoor Feng MD PCP: Tomás Dickey MD Status: PRE ER - ER Visit Summary Date of Service: 04/12/18 Chief Complaint: Suture removal History of Present Illness: The patient is a 22 F who needed her sutures removed. There are put in 1 week ago here. She tripped over her bed and lacerated her foot. She states there is been no drainage and it has been healing well. Physical Examination: Right foot exam reveals 7 sutures on the dorsal part of the foot. No bleeding, drainage or erythema noted. Test Results: None performed Emergency Department Course and Treatment: Patient had sutures removed. She tolerated this well. She will follow-up as needed Treatment Plan: [] Disposition: Discharge Impression: Suture removal Removal by ED physician This note was generated with [employer] dictation software. It may contain incorrect words, spelling, and punctuation that were not noted in review of the chart prior to signing ED Disposition - Plan for ED Patient: Chief Complaint: Suture Remv Referrals: Tomás Dickey MD [Primary Care Provider] - What to do if you have Problems For any increased pain, shortness of breath, bleeding, nausea or vomiting, chest pain, or any unexpected problems, contact your Primary Care Provider. Call [facility] ([phone]) or report to the closest Emergency Room. Call 911 if necessary. 04/12/182103 <Electronically signed by Mansoor Feng MD> Date Mansoor Feng MD Cosigner Signature (If Indicated): Date CC: Tomás Dickey MD EMERGENCY DEPARTMENT Observed: 04/03/2018 Status: F Source: [place] SUMMARY 12:28 AM [facility] RE[facility]ORY [facility] Medical Records Department [address] [place] [address] Emergency Department Summary 04/03/18 0024 MR#: [id number] Acct: [id number] Name: ANA LUISA STRICKLAND Rep #: [id number] : 1995 22 From: Suleiman Wen MD PCP: Tomás Dickey MD Status: REG ER - ER Visit Summary Date of Service: 04/03/18 Chief Complaint: Blunt trauma and laceration dorsal lateral surface right foot History of Present Illness: The patient is a 22 F who states she bumped her foot against the edge of the bed frame that was uncovered. She sustained a laceration. She does complain of severe pain. She denies paresthesia, anesthesia motors. She states she has significant discomfort with weightbearing. She has no other complaints. Immunization up-to-date. Physical Examination: There is a 3.5 cm laceration dorsal surface of the right foot. X-ray was obtained per nursing protocol. DP and PT pulses are palpable. There is no subungual hematoma noted of any of the toes. There is no pain to palpation over the lateral or medial malleolus. There is no pain the patient of the calcaneus. There is pain to palpation over the third and fourth metatarsal. Test Results: X-ray was obtained per nursing protocol and interpreted by me as negative for foreign body or fracture. Emergency Department Course and Treatment: X-ray per nurse protocol. The wound was anesthetized by local infiltration using 1% lidocaine. The wound was irrigated with normal saline. Using 5-0 Ethilon simple interrupted sutures were placed with good cosmesis hemostasis. Treatment Plan: Wound care Disposition: Discharged home in stable condition Impression: 1. Right foot pain secondary to contusion initial encounter 2. 3.5 cm laceration right foot This note was generated with [employer] software. It may contain incorrect words, spelling, and punctuation that were not noted in review of the chart prior to signing ED Disposition - Plan for ED Patient: Disposition: Home or Assisted Living Chief Complaint: Laceration Instructions: ED Contusion Foot, ED Laceration Foot Referrals: Tomás Dickey MD [Primary Care Provider] - 10 Day for suture removal Additional Instructions: Clean laceration with peroxide and Q-tip 3 times a day then apply bacitracin ointment. What to do if you have Problems For any increased pain, shortness of breath, bleeding, nausea or vomiting, chest pain, or any unexpected problems, contact your Primary Care Provider. Call [facility] ([phone]) or report to the closest Emergency Room. Call 911 if necessary. 04/03/18 0028 <Electronically signed by Suleiman Wen MD> Date Suleiman Wen MD Cosigner Signature (If Indicated): Date CC: Tomás Dickey MD ANKLE MIN 3 VIEWS Observed: 04/02/2018 Status: F Source: [place] 10:15 PM [facility] REPOSITORY [facility] Imaging Services [address] [place] [address] Ankle min 3 Views MR#: [id number] Acct: [id number] Name: ANA LUISA STRICKLAND Rep #: [id number] : 1995 F 22 From: Jerald Daigle DO PCP: Tomás Dickey MD Status: REG ER Study: Ankle min 3 Views Date of Exam: 04/02/18 Exam# [id number] Ordering Dr: Almas,Porter P. STUDY: X-RAY - RIGHT ANKLE REASON FOR EXAM: Female, 22 years old. Laceration TECHNIQUE: 3 view(s) of the ankle. COMPARISON: None. FINDINGS: Normal visualized distal tibia and fibula. Normal medial and lateral malleoli. Normal tibiotalar articulation and ankle mortise. Normal visualized talus and calcaneus. The visualized subtalar, talonavicular, calcaneocuboid and tarsal articulations are normal. Possible posterior laceration at the heel. RAD/Ankle min 3 Views IMPRESSION: No acute bony injury of the ankle. Electronically Signed: Jerald Daigle DO at 22:39 EDT Tel [phone], Service support , CC: ED PHYSICIAN PROVIDER; Tomás Dickey MD Director Of Campus Recreation: Signed UA Collected: 03/27/2018 Status: F Source: [facility] 4:52 [facility] [place] REPOSITORY TYPE CODE TESTS RESULT OUT OF RANGE REFERENCE UNITS LAB SPCUA(MANUEL NC) UA Specimen Type Clean Catch LAB CLRUA(MANUEL NC) UA Color Yellow LAB APPUA(MANUEL Clear NC) UA Appear Clear LAB SGUA(LOIN C) UA Spec Unknown Grav 1.005 LAB GLUA(LOIN Negative mg/dL C) UA Glucose Negative LAB BILUA(MANUEL Negative NC) UA Bili Negative LAB KETUA(MANUEL Negative mg/dL NC) UA Ketones Negative LAB BLDUA(MANUEL Negative NC) UA Blood Unknown Moderate-Inta ct LAB PHUA(LOIN C) UA pH 7.5 LAB PROUA(MANUEL Negative mg/dL NC) UA Protein Negative LAB UROUA(MANUEL E.U./dL NC) UA Urobilinogen 0.2 LAB NITUA(MANUEL Negative NC) UA Nitrite Negative LAB LEUUA(MANUEL Negative NC) UA Leuk Est Negative Performed By: #### UA, UAMICAO, PREGU #### [address] [address] .URINALYSIS MICROSCOPIC Collected: 03/27/2018 Status: F Source: [facility]EL[facility]) 4:52 [facility] REPOSITORY TYPE CODE TESTS RESULT OUT OF RANGE REFERENCE UNITS LAB WBCUA(LOIN None Seen /hpf C) UA WBC None Seen LAB RBCUA(LOIN None Seen /hpf C) Unknown UA RBC 5-10 LAB EPIUA(LOIN None Seen /hpf C) Unknown UA Squam Epithelial 0-5 Performed By: #### UA, UAMICAO, PREGU #### [facility] [address] [place], [place] [address] PREGU Collected: 03/27/2018 Status: F Source: [facility] [employer] [place] 4:52 [facility] REPOSITORY TYPE CODE TESTS RESULT OUT OF RANGE REFERENCE UNITS LAB PREGU(LOIN C) Test Negative Urine LAB PRUG1(LOIN C) Unknown test HCG not (u) int detected. Performed By: #### UA, UAMICAO, PREGU #### [facility] [address] [place], [place] [address] EMERGENCY DEPARTMENT Observed: 03/22/2018 Status: F Source: [place] SUMMARY 1:32 AM [facility] REPOSITORY [facility] Medical Records Department [address] [place] [address] Emergency Department Summary 03/22/18 0012 MR#: [id number] Acct: [id number] Name: ANA LUISA STRICKLAND Rep #: [id number] : 1995 22 From: Gennaro Wallace PCP: Tomás Dickey MD Status: REG ER - ER Visit Summary Date of Service: 03/22/18 Chief Complaint: Multiple complaints History of Present Illness: The patient is a 22 F right upper dental pain for 3 weeks. Chronic migraines on Topamax. No falls or head injuries. Hot and cold sensitivities to tooth. States had a fever 3 weeks ago. Urine frequency for 1 week. States generalized weakness with lightheaded symptoms or history of anemia. She sees her PCP yearly states his blood check. Unclear her baseline hemoglobin. Concern of low blood counts. Double shots therefore last menstrual period unknown. 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 Has tolerated Toradol in the past. No history of gastric ulcers. No syncopal episodes. Also states he gets low blood glucose, no history of diabetes. Physical Examination: General: Alert and oriented 3, no acute distress HEENT: Normocephalic, atraumatic. Moist mucosa membranes. Normal conjunctiva. Tender palpation tooth #2 no focal abscess, fillings present. Airway patent. Neck: supple, nontender. Cardiovascular: Regular rate and rhythm, no murmurs Respiratory: Normal breath sounds, symmetric, no distress Abdomen: Soft, nontender, nondistended Extremities: Nontender, no edema, pulses intact 4 Neuro: no focal neurological deficits. Test Results: Hemoglobin 13.9. Blood glucose 105. UA leukocytes have had epithelials. Emergency Department Course and Treatment: Patient multiple concerns. She wanted hemoglobin check with anemia history. This is normal. She was Concern of her blood glucose which was normal. Started on penicillin for dental pain. She given Toradol which did help her dental pain and her headaches. With her urine symptoms will place on Keflex to cover both UTI and dental pain. Discussed with patient calling dentist for follow- up for definitive care. Treatment Plan: [] Disposition: Discharge Impression: 1. Dentalgia 2. UTI This note was generated with Hango[employer] software. It may contain incorrect words, spelling, and punctuation that were not noted in review of the chart prior to signing ED Disposition - Plan for ED Patient: Disposition: Home or Assisted Living Chief Complaint: Headache Diagnosis: Dentalgia, Headache, UTI (urinary tract infection) Instructions: ED Cephalgia Unspecified, ED Tooth Pain, ED UTI Cystitis Female Prescriptions: Cephalexin [Keflex] 500 mg PO Q6 #40 capsule Naproxen [Naprosyn] 500 mg PO BID #20 tablet Referrals: Tomás Dickey MD [Primary Care Provider] - 3-5 Days Additional Instructions: Call your dentist for follow-up for definitive care of tooth. Take medication as prescribed. What to do if you have Problems For any increased pain, shortness of breath, bleeding, nausea or vomiting, chest pain, or any unexpected problems, contact your Primary Care Provider. Call [facility] ([phone]) or report to the closest Emergency Room. Call 911 if necessary. 03/22/18 0132 <Electronically signed by Gennaro Wallace> Date Gennaro Wallace Cosigner Signature (If Indicated): Date CC: Tomás Dickey MD URINALYSIS, COMPLETE Collected: 03/22/2018 Status: F Source: [place] 12:30 AM [facility] REPOSITORY Order Comment: Order Date: 03/22/18 How was Urine Obtained? CLEAN CATCH TYPE CODE TESTS RESULT OUT OF RANGE REFERENCE UNITS LAB L400.3000 Yellow COLOR Normal Yellow LAB L400.3050 Clear Normal CLARITY Sl. Cloudy LAB L400.3200 Normal mg/dl Normal GLUCOSE, UR Normal LAB L400.3300 Negative mg/dL Normal BILIRUBIN URINE Negative LAB L400.3400 Negative mg/dl Normal KETONE UR Negative LAB L400.3465 1.002-1.030 Normal SP.GR. DIPSTX 1.020 LAB L400.3550 5.0 - 8.0 pH UR Normal 6.5 LAB L400.3600 Negative mg/dl High PROT 15 DIPSTX LAB L400.3700 Normal mg/dl High 1 UROBILI LAB L400.3750 Negative Normal NITRITE UR Negative LAB L400.3780 Negative /ul High 25 OCCULT BLOOD-UR LAB L400.3800 Negative /ul High LEUK ESTERASE 100 LAB L400.4050 0-5 /hpf WBC Normal 5-10 SEEN LAB L400.4100 0-5 /hpf 0 Normal RBC-UA SEEN LAB L400.4150 5-10 /hpf SQUAM Normal EPI 25-50 SEEN LAB L400.4300 None Seen /hpf 2+ Normal BACTERIA LAB L400.4350 <or=2+ /hpf 1+ Normal MUCUS, URINE Performed By: #### L400.0001 #### [facility] [address] [place], [place], [id number] CBC-COMPLETE BLOOD CNT Collected: 03/22/2018 Status: F Source: [place] NO DIFF 12:25 AM [facility] REPOSITORY TYPE CODE TESTS RESULT OUT OF RANGE REFERENCE UNITS LAB L100.1000 4.4-11.0 K/mm3 Normal WBC 10.5 LAB L100.1200 4.2-5.4 M/mm3 Normal RBC 4.54 LAB L100.1300 12.0-15.0 g/dl Normal HGB 13.9 LAB L100.1400 37-47 % Normal HCT 40.6 LAB L100.1500 81-99 fL Normal MCV 89.4 LAB L100.1600 27.0-32.0 pg Normal MCH 30.6 LAB L100.1700 32-36 g/gl Normal MCHC 34.2 LAB L100.1810 11.6-14.6 % Normal RDW CV 13.2 LAB L100.1820 35.1-43.9 fl Normal RDW SD 43.0 LAB L100.1900 150-450 K/mm3 Normal PLT 198 LAB L100.2000 6.2-12.0 fl Normal MPV 10.7 Performed By: #### L100.0500 #### [facility] [address] [place], [address] BEDSIDE GLUCOSE Collected: 03/22/2018 Status: F Source: [place] 12:23 AM [facility] REPOSITORY TYPE CODE TESTS RESULT OUT OF RANGE REFERENCE UNITS LAB L501.080 70-110 mg/dL Normal BEDSIDE GLU 105 Result Comment: MANAGEMENT OF PATIENT CARE PER NURSING PROTOCOL Performed By: #### L501.080 #### [facility] Point of Care [address] [place] [address] EMERGENCY DEPARTMENT Observed: 03/08/2018 Status: F Source: [place] SUMMARY 10:13 PM [facility] REPOSITORY [facility] Medical Records Department [address] [place] [address] Emergency Department Summary 03/08/18 2209 MR#: [id number] Acct: [id number] Name: ANA LUISA STRICKLAND Rep #: [id number] : 1995 22 From: Suleiman Wen MD PCP: Tomás Dickey MD Status: REG ER - ER Visit Summary Date of Service: 03/08/18 Chief Complaint: Numerous symptoms including headache, nausea, document a fever to 101, nasal congestion and nonproductive cough History of Present Illness: The patient is a 22 F who has headache which she believes are migraine headache. She does complain of photophobia. She denies she denies neck pain or stiffness. She does report nonproductive cough. Denies chest pain. Denies vomiting or diarrhea. Denies dysuria, frequency, urgency or hematuria. Denies any skin lesions or rash. Please see written note for complete detail Physical Examination: Vital signs were noted and are marked for blood pressure 130/93 and heart rate 104. She appears in no distress. Head is atraumatic normocephalic. Pupils are equal round reactive. Extraocular muscles are intact. TMs are pearly white with landmarks noted. Nares patent with no drainage. Posterior pharynx without erythema or exudate. Uvula is midline. There is no dysphonia or dysphasia. Trachea is midline. There is no stridor with auscultation of the neck. There is no photophobia. There is no nuchal rigidity. Heart is regular without murmur, gallop or rub. S1 and S2 are normal. Lungs are clear to auscultation with good movement of air bilaterally. Abdomen soft nontender. 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 She is alert and oriented 3. Motor spiral 5. Sensations intact. DTRs symmetric no clonus or Babinski. Cranial 2 through 12 intact. Test Results: None Emergency Department Course and Treatment: Patient received 30 Cooper grams Toradol IV push, 10 mg Reglan IV push and 25 mg of Benadryl IV push. I was informed at 2150 the patient's headache is resolved. Treatment Plan: Discharge to home Disposition: Discharged home with symptomatic treatment and note indicating she was seen in the emergency department Impression: 1. Migraine headache 2. Reported temperature 101.0 F 3. URI This note was generated with [employer] dictation software. It may contain incorrect words, spelling, and punctuation that were not noted in review of the chart prior to signing ED Disposition - Plan for ED Patient: Disposition: Home or Assisted Living Chief Complaint: General Illness Instructions: ED Headache Migraine, ED URI Viral Referrals: Tomás Dickey MD [Primary Care Provider] - 1 Week if not improving What to do if you have Problems For any increased pain, shortness of breath, bleeding, nausea or vomiting, chest pain, or any unexpected problems, contact your Primary Care Provider. Call [facility] ([phone]) or report to the closest Emergency Room. Call 911 if necessary. 03/08/18 6766 <Electronically signed by Suleiman Wen MD> Date Suleiman Wen MD Cosigner Signature (If Indicated): Date CC: Tomás Dickey MD EMERGENCY DEPARTMENT Observed: 02/12/2018 Status: F Source: [place] SUMMARY 2:30 AM [facility] REPOSITORY [facility] Medical Records Department [address] [place] [address] Emergency Department Summary 02/12/18 0211 MR#: [id number] Acct: [id number] Name: ANA LUISA STRICKLAND Rep #: [id number] : 1995 22 From: Concepcion Gonzales MD PCP: Tomás Dickey MD Status: REG ER - ER Visit Summary Date of Service: 02/12/18 Chief Complaint: Right hand and wrist pain History of Present Illness: The patient is a 22 F presenting with right hand and wrist pain. Patient states she was trying to catch an air conditioner that was falling out a window. She states she grabbed the cord. States it pulled at her wrist and she has pain in the right hand and wrist. She also has pain in her back. No direct injury. No other complaints. Physical Examination: Vitals are stable. Patient is afebrile. Alert no acute distress. HEENT exam is unremarkable. Lungs are clear and equal bilaterally. Heart is regular rate and rhythm. Back nontender Extremities mild diffuse right wrist tenderness with painful range of motion. Skin is warm and dry. No focal neurologic deficit. Remainder of exam is unremarkable. Emergency Department Course and Treatment: Patient is given Tylenol. Ice pack was applied. X-ray of the right hand and wrist showed no acute process. She was given a Velcro wrist splint. Advised to follow-up with primary care physician. Advised return ED if worsening complaints. Disposition: Discharge home Impression: Right wrist sprain This note was generated with [employer] dictation software. It may contain incorrect words, spelling, and punctuation that were not noted in review of the chart prior to signing ED Disposition - Plan for ED Patient: Chief Complaint: Upper Extremity Injury Referrals: Tomás Dickey MD [Primary Care Provider] - What to do if you have Problems For any increased pain, shortness of breath, bleeding, nausea or vomiting, chest pain, or any unexpected problems, contact your Primary Care Provider. Call [facility] ([phone]) or report to the closest Emergency Room. Call 911 if necessary. 02/12/18229 <Electronically signed by Concepcion Gonzales MD> Date Concepcion Gonzales MD Cosigner Signature (If Indicated): Date CC: Tomás Dickey MD DISCHARGE INSTRUCTION Observed: 02/12/2018 Status: F Source: [place] 2:28 AM [facility] Medical Records Department [address] [place] [address] [place] [address] Discharge Instruction 02/12/18227 MR#: [id number] Acct: [id number] Name: DORIANANA LUISA Rep #: [id number] : 1995 22 From: Concepcion Gonzales MD PCP: Tomás Dickey MD Status: REG ER ED Disposition - Plan for ED Patient: Chief Complaint: Upper Extremity Injury Instructions: ED Sprain Wrist Referrals: Tomás Dickey MD [Primary Care Provider] - What to do if you have Problems For any increased pain, shortness of breath, bleeding, nausea or vomiting, chest pain, or any unexpected problems, contact your Primary Care Provider. Call [facility] ([phone]) or report to the closest Emergency Room. Call 911 if necessary. 02/12/18227 <Electronically signed by Concepcion Gonzales MD> Date Concepcion Gonzales MD Cosigner Signature (If Indicated): Date CC: Tomás Dickey MD WRIST MIN 3 VIEWS Observed: 02/12/2018 Status: F Source: [place] 1:40 AM [facility] REPOSITORY [facility] Imaging Services [address] [place] [address] Wrist min 3 Views MR#: [id number] Acct: [id number] Name: ANA LUISA STRICKLAND Rep #: [id number] : 1995 F 22 From: Maged Delarosa MD PCP: Tomás Dickey MD Status: REG ER Study: Wrist min 3 Views Date of Exam: 02/12/18 Exam# [id number] Ordering Dr: Concepcion Gonzales MD STUDY: X-RAY - RIGHT WRIST REASON FOR EXAM: Female, 22 years old. GRABBED AN AIR CONDITIONER BY ITS CORD IT WAS FALLING OUT A WINDOW C/O PAIN RT 1ST METACARPAL and NAVICULAR AREAS TECHNIQUE: 4 view(s) of the wrist were obtained. COMPARISON: None. FINDINGS: Normal visualized distal radius and ulna. Normal radiocarpal articulation. Normal distal radioulnar articulation. Normal carpal bones. Normal carpal articulations. Normal carpometacarpal articulation of the thumb. Normal second through fifth carpometacarpal articulations. Normal visualized metacarpal bones. The soft tissue structures are unremarkable. RAD/Wrist min 3 Views IMPRESSION: Normal x-ray examination of the wrist. Electronically Signed: Maged Delarosa MD at 2:17 EDT Tel , Service support , CC: Concepcion Gonzales MD; Tomás Dickey MD Director Of Campus Recreation: Signed HAND MIN 3 VIEWS Observed: 02/12/2018 Status: F Source: [place] 1:40 AM [facility] REPOSITORY [facility] Imaging Services [address] [place] [address] Hand Min 3 Views MR#: [id number] Acct: [id number] Name: DORIANANA LUISA Rep #: [id number] : 1995 F 22 From: Alex Dukes MD PCP: Tomás Dickey MD Status: REG ER Study: Hand Min 3 Views Date of Exam: 02/12/18 Exam# [id number] Ordering Dr: Concepcion Gonzales MD STUDY: X-RAY - RIGHT HAND REASON FOR EXAM: Female, 22 years old. Trauma. Patient grabbed an air conditioner biophysical score as it was falling out of a window. Pain in the first metacarpal region and lateral wrist. TECHNIQUE: 3 view(s) of the hand. COMPARISON: X-ray wrist done today. FINDINGS: Normal radiocarpal articulation. Normal distal radioulnar joint. Normal visualized carpal bones. Normal carpal articulations Normal carpometacarpal articulation of the thumb. Normal second through fifth carpometacarpal joints. Normal metacarpi. Normal metacarpophalangeal joint of the thumb. Normal interphalangeal joint of the thumb. Normal proximal and distal phalanges of the thumb. Normal metacarpophalangeal joints of the second through fifth fingers. Normal proximal and distal interphalangeal joints of the second through fifth fingers. Normal phalanges of the second through fifth fingers. The soft tissue structures are unremarkable. RAD/Hand Min 3 Views IMPRESSION: Normal x-ray examination of the hand. Electronically Signed: Alex Dukes MD at 2:20 EDT , Service support , CC: Concepcion Gonzales MD; Tomás Dickey MD Director Of Campus Recreation: Signed EMERGENCY DEPARTMENT Observed: 01/04/2018 Status: F Source: [place] SUMMARY 9:16 PM [facility] REPOSITORY [facility] Medical Records Department [address] [address] Emergency Department Summary 01/04/18 2114 MR#: [id number] Acct: [id number] Name: ANA LUISA STRICKLAND Rep #: [id number] : 1995 22 From: Jerrod Kan DO PCP: Tomás Dickey MD Status: PRE ER - ER Visit Summary Date of Service: 01/04/18 Chief Complaint: [Injury left breast] History of Present Illness: The patient is a 22 F [presents the emergency department complaint of injuring her left wrist 2 days ago. Patient states that she was moving furniture and some hours in a 4 [place] as she got an eviction notice recently. Patient's now having pain in her left wrist. She denies any falls or direct trauma to it. Patient is right-hand dominant.] Physical Examination: [Left wrist-there is no soft tissue swelling, ecchymosis, or bruising. Patient has some mild diffuse tenderness on palpation. She is neurovascular intact distally with normal sensation and normal range of motion of all digits.] Test Results: [None indicated] I do not feel x-rays are indicated as she has had no direct trauma. And given her history of the injury I do not feel x-rays are indicated. Emergency Department Course and Treatment: [Patient will receive a Velcro wrist splint] Treatment Plan: [Patient advised use Advil which she is currently been taking. Patient to follow-up with her primary care physician in 7-10 days.] Disposition: [Discharged home in stable condition.] Impression: [Left wrist sprain] This note was generated with [employer] dictation software. It may contain incorrect words, spelling, and punctuation that were not noted in review of the chart prior to signing ED Disposition - Plan for ED Patient: Chief Complaint: Upper Extremity Injury Referrals: Tomás Dickey MD [Primary Care Provider] - What to do if you have Problems For any increased pain, shortness of breath, bleeding, nausea or vomiting, chest pain, or any unexpected problems, contact your Primary Care Provider. Call [facility] ([phone]) or report to the closest Emergency Room. Call 911 if necessary. 01/04/182115 <Electronically signed by Jerrod Kan DO> Date Jerrod Kan DO Cosigner Signature (If Indicated): Date CC: Tomás Dickey MD DISCHARGE INSTRUCTION Observed: 01/04/2018 Status: F Source: [place] 9:16 PM [facility] Medical Records Department [address] [place] [address] Discharge Instruction 01/04/182115 MR#: [id number] Acct: [id number] Name: ANA LUISA STRICKLAND Rep #: [id number] : 1995 From: Jerrod Kan DO PCP: Tomás Dickey MD Status: PRE ER ED Disposition - Plan for ED Patient: Chief Complaint: Upper Extremity Injury Instructions: ED Sprain Wrist Referrals: Tomás Dickey MD [Primary Care Provider] - 5-7 Days What to do if you have Problems For any increased pain, shortness of breath, bleeding, nausea or vomiting, chest pain, or any unexpected problems, contact your Primary Care Provider. Call [facility] ([phone]) or report to the closest Emergency Room. Call 911 if necessary. 01/04/182115 <Electronically signed by Jerrod Kan DO> Date Jerrod Kan DO Cosigner Signature (If Indicated): Date CC: Tomás Dickey MD DISCHARGE INSTRUCTION Observed: 12/29/2017 Status: F Source: [place] 4:19 AM [facility] Medical Records Department [address] [place] [address] Discharge Instruction 12/29/17 0418 MR#: [id number] Acct: [id number] Name: ANA LUISA STRICKLAND Rep #: [id number] : 1995 22 From: Jerrod Kan DO PCP: Tomás Dickey MD Status: REG ER ED Disposition - Plan for ED Patient: Chief Complaint: General Illness Instructions: ED Headache Migraine Referrals: Tomás Dickey MD [Primary Care Provider] - Kelly Bryant MD [STAFF PHYSICIAN] - 3-5 Days What to do if you have Problems For any increased pain, shortness of breath, bleeding, nausea or vomiting, chest pain, or any unexpected problems, contact your Primary Care Provider. Call [facility] ([phone]) or report to the closest Emergency Room. Call 911 if necessary. 12/29/17 0419 <Electronically signed by Jerrod Kan DO> Date Jerrod Kan DO Cosigner Signature (If Indicated): Date CC: Tomás Dickey MD EMERGENCY DEPARTMENT Observed: 12/29/2017 Status: F Source: [place] SUMMARY 4:18 AM [facility] Medical Records Department [address] [place] [address] Emergency Department Summary 12/29/17 0415 MR#: [id number] Acct: [id number] Name: ANA LUISA STRICKLAND Rep #: [id number] : 1995 22 From: Jerrod Kan DO PCP: Tomás Dickey MD Status: REG ER - ER Visit Summary Date of Service: 12/29/17 Chief Complaint: [Headache] History of Present Illness: The patient is a 22 F [presents to the emergency department with complaint of a headache that started earlier today. Patient states she has a history of chronic migraines and sees Dr. Bryant] of neurology. Patient gets Botox injections and has missed her last appointment. Patient describes diffuse headache with photophobia and nausea that is typical of her migraines. Patient also states that she feels slightly short of breath and she thinks may be related to her anxiety and history of asthma. Patient denies any falls or head injuries. Patient denies any fever. Patient has not had any significant cough. Physical Examination: [HEENT-PERRLA, EOMI. Cranial nerves II through XII grossly intact. TMs clear. Mucous membranes moist. No adenopathy. Cardiovascular-regular rate and rhythm without murmur or ectopy Lungs-clear to auscultation, chest wall stable without crepitus or subcu emphysema Abdomen-normoactive bowel sounds, soft, nontender, no rebound or rigidity, no peritoneal signs. Neuro exam-finger to nose and heel to webber testing within normal limits, negative Romberg, negative pronator drift, fundi benign Extremities-intact 4, normal range of motion, normal pulses, atraumatic] Test Results: [None indicated] Emergency Department Course and Treatment: [IV line was established and patient was given a liter normal saline fluid bolus as well as Reglan and Toradol and her headache resolved] Treatment Plan: [Patient follow-up with her neurologist within the next 3-5 days] Disposition: [Discharged home in stable condition] Impression: [Migrainous cephalgia-resolved] This note was generated with [employer] dictation software. It may contain incorrect words, spelling, and punctuation that were not noted in review of the chart prior to signing ED Disposition - Plan for ED Patient: Chief Complaint: General Illness Referrals: Tomás Dickey MD [Primary Care Provider] - What to do if you have Problems For any increased pain, shortness of breath, bleeding, nausea or vomiting, chest pain, or any unexpected problems, contact your Primary Care Provider. Call [facility] ([phone]) or report to the closest Emergency Room. Call 911 if necessary. 12/29/17 0418 <Electronically signed by Jerrod Kan DO> Date Jerrod Kan DO Cosigner Signature (If Indicated): Date CC: Tomás Dickey MD DOWNTIME REPORT Observed: 12/25/2017 Status: F Source: [place] 2:03 PM [facility] REPOSITORY [facility] Medical Records Department [address] [place] [address] Downtime Report MR#: [id number] Acct: [id number] Name: ANA LUISA STRICKLAND Rep #: [id number] : 1995 22 From: Ryder Cooper MD PCP: Tomás Dickey MD Status: DEP ER This patient was seen during an EMR downtime December 09, 2017 - December 16, 2017. This patient may have a combination of paper and electronic documentation or all paper documentation. All documentation is viewable within the e-chart portion of [employer] for each patient visit. PROGRESS Observed: 12/12/2017 Status: COMPLETED Source: [place] 2:41 PM [facility] REPOSITORY HNO ID: [id number] Author: Ila Schwartz Service: (none) Author Type: Physician Type: Progress Notes Filed: 12/12/2017 2:42 PM Note Text: Please route this encounter to the EMU Scheduling Pool (P EMU) or PMU Scheduling Pool (P PMU) through LOS AND Follow up PHASE 1.0 AND 1.5 ORDER SYNOPSIS Patient: Ana Luisa Strickland ([id number]) (home) Insurance: Payor: [place] / Plan: [place] MEDICAID / Product Type: Medicaid / ----- Target Date: Per patient convenience Number of days requested: 5 - 7 days Admission Type: Regular Admission Location: Any Purpose: Diagnosis Sphenoidal monitoring: No Electrode placement: Standard Urgent admissions only Please answer the following: Diagnosis/Reason Pertinent medical history Mobility Status: ----- Appointments and tests: - non-invasive video-EEG monitoring (EMU/PMU) Consultations: Per primary team For Phase 1.0 orders, please answer the following questions: 1. Are seizures of unclear diagnosis and/or nonepileptic? Yes 2. Is epilepsy surgery being considered and requires video- EEG monitoring for the first phase of testing? No 3. Is this an ictal SPECT admission? No 4. Is the video-EEG recommended to assess daily EEG seizure burden, address new and concerning symptom-sign complex, and/or clarify syndromic epilepsy diagnosis? No 5. Is this patient on the ketogenic diet, modified Atkins' diet, or any other special diet for epilepsy? Is this admission to initiate the ketogenic diet? No (If YES to any diet questions, notify Neur Ep Keto Epilepsy Pool (P Neur Ep Keto) via [employer] staff message) Please route this encounter to the EMU Scheduling pool (P EMU) or PMU Scheduling pool (P PMU) through LOS AND Follow up Scheduling coordinators: For all VNS patients being scheduled for NATHALIA, please schedule VNS off/on office visits. PROCEDURE Observed: 12/12/2017 Status: COMPLETED Source: [place] 12:[address] [facility] REPOSITORY HNO ID: [id number] Author: Ila Schwartz Service: (none) Author Type: Physician Type: Procedures Filed: 12/16/2017 11:54 PM Note Text: EPILEPSY CLINIC NOTE December 12, 2017 REFERRAL: Luan Mendes for an opinion regarding seizure- like events. CHIEF COMPLAINT: possible seizures, HISTORY OF PRESENT ILLNESS: Ms. 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 She is accompanied by her mother. Events started approximately three month ago. She does not remember the episode but her friend who witnessed it reported convulsions lasting for 30 minutes. She knows that slept for 5 hours after the episode. She was prescribed LEV 500 mg BID but despite taking medications she had another convulsive episodes. She was taken into ER where she was recommended to increase LEV to 750 BID. But she could not tolerate higher dose and decided to take it only once daily. The last convulsive episode occurred on 12/06/2017 and also lasted for about 20 minutes. After the episode she slept for three hours. In addition to convulsive events she has episodes of anxiety lasting for 5-10 minutes when she feels shaky, has stomach upset, feels scared, something bad going to happen. These events occurring during last year once or twice a day. PCP prescribed antidepressant for this episodes but patient does not remember the name of the medication. Seizure risk factors: 1. Head Trauma no 2. ATHLETE MANAGER Infections (no) 3. Family History of Seizures (no) 4. Developmental Delay (yes) 5. Febrile Seizures (no) 6. ATHLETE MANAGER Tumors (optic glioma) 7. ATHLETE MANAGER Vascular Disease (no) 8. 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 No associated enhancement or pathologic parenchymal or leptomeningeal enhancement elsewhere in the brain. The right optic nerve, optic chiasm and optic tracts appear within normal limits. 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 I reviewed the patient's prior imaging and agree with this interpretation. Anticonvulsant History: -Current AEDs:LEV The patient's side effects to the current medications are spacing out, decrease appetite. CURRENT MEDICATIONS: Outpatient Prescriptions Marked as Taking for the 12/12/17 encounter (Office Visit) with Neur Epilepsy Clinic Consult: levETIRAcetam (KEPPRA) 500 mg tablet Take 500 mg by mouth twice daily. Disp: Rfl: medroxyPROGESTERone (DEPO-PROVERA) 150 mg/mL injection Inject 150 mg intramuscularly every 12 weeks. Disp: Rfl: TOPIRAMATE (TOPAMAX ORAL) Take 100 mg by mouth twice daily. 11/29 pt unsure of dose Takes 2 x daily Disp: Rfl: diazePAM (VALIUM) 5 mg tablet Take 5 mg by mouth every 8 hours as needed. Disp: Rfl: folic acid 1 mg tablet Take 1 mg by mouth once daily. Disp: Rfl: fluticasone (FLONASE) 50 mcg/actuation nasal spray Use 1 [place] in each nostril once daily. Disp: Rfl: IBUPROFEN/DIPHENHYDRAMINE CIT (ADVIL PM ORAL) Take by mouth as needed. Disp: Rfl: In addition takin antidepressant for anxiety, but does not remember the name of the medication. ALLERGIES: ALLERGIES Allergen Reactions - Acetaminophen Unknown - Diphenhydramine Unknown - Ibuprofen Unknown - Seasonal Allergies Cough PAST MEDICAL HISTORY: Primary Care Provider:Tomás Dickey MD Primary neurologist:Luan Mendes PAST SURGICAL HISTORY: Tonsillectomy (childhood) Elbow surgery FAMILY MEDICAL HISTORY: FAMILY HISTORY Problem Relation Age of Onset - Asthma Mother Maternal side - Cancer Mother Maternal side - Diabetes Mother Maternal side - Neurofibromatosis [OTHER] Mother - Cancer Father Paternal side - Diabetes Father Paternal side - Ischemic Heart Disease Father [place] - Asthma Father Paternal side - Hypertension Father - Diabetes Maternal Grandmother - Heart Maternal Grandmother - Neurofibromatosis [OTHER] Maternal Grandmother - Heart Paternal Grandmother CHF - Ischemic Heart Disease Paternal Grandmother - Neurofibromatosis [OTHER] Brother - Neurofibromatosis [OTHER] Brother - Neurofibromatosis [OTHER] Sister -No family history of seizures SOCIAL HISTORY: -Lives in with her sone (3 year old). -Not . -Occupation: no -Smoking: no -Alcohol use: once a month -Substance use: high coffein intake -Driving Status: Not driving. REVIEW OF SYSTEMS: GENERAL: No fever, unintentional weight loss, LAD, fatigue, night sweats HEENT: No headache, vertigo, trauma, loss of vision, photophobia, diplopia, visual hallucinations, blurriness, tinnitis, loss of hearing, dysarthria, dysphagia, hoarseness SKIN: Multiple cafe au lait spots MUSCULOSKELETAL: No joint pain, swelling, stiffness. Left elbow flexion is limited. RESPIRATORY: No cough, dyspnea, orthopnea CARDIOVASCULAR: No chest pain, palpitations, pedal edema, clots GI: No nausea, vomiting, diarrhea, constipation, abdominal pain : No dysuria, hematuria, urgency, increased frequency, incontinence, impotence NEURO: See HPI. No changes in sensation, weakness, balance, memory changes, headache, tremor. EOMI. Full power of arms and legs proximally and distally. Primary gaze is conjugated. Visual field is restricted on the left. PSYCH: history of anxiety. VITAL SIGNS: Blood pressure 149/96, pulse 78, height 154.9 cm (5' 1), weight 47.2 kg (104 lb). Current EEG (December 12, 2017) showed normal results. I reviewed the patient's prior EEG and agree with this interpretation. IMPRESSION: The patient has risk factors for epilepsy such as neurofibromatosis and associated developmental delay. But provided history (20-30 minutes convulsion) and the results of the evaluation (normal EEG) suggest the possibility of a non-epileptic events. To test these two possibilities we recommended video EEG evaluation. In case if these episodes were confirmed as epileptic we are planning to switch LEV to LTG or OXC. Otherwise she may not need antiepileptic medications. Epilepsy Classification: Paroxysmal Events vs Epilepsy Etiology: Other unknown PLAN: -Patient will undergo further evaluation with video EEG -Medical management: Continue current medications -Education: The following issues were discussed with the patient on this visit and written instructions provided as below: Seizure precautions and safety, seizure first aide, seizure triggers, guidelines. Patient has the clinic contact information and was asked to call with any questions. FOLLOW-UP: The patient was scheduled for a return visit in after EMU evaluation. Arlene Shah MD Clinical fellow [facility], [place], [facility] BY [facility] NOTE OF PERSONAL INVOLVEMENT IN CARE ? I have reviewed the history and physical examination obtained and documented by the fellow and I personally participated in the martinez components. I have discussed the case and management of the patient's care. CARE COORDINATION: The majority of the visit was spent counseling and/or coordinating care for the patient. Odmk-rq-jnyx time was 40 minutes Ila Schwartz MD December 16, 2017 11:53 PM CNOV Observed: 12/12/2017 Status: COMPLETED Source: [place] 12:40 PM [facility] REPOSITORY Office Visit ([id number]) ANA LUISA STRICKLAND ([id number]) 1995 F Date Time Provider Department 12/12/17 12:40 PM [facility] [id number] During your visit today, we recorded the following information about you: Pulse Blood pressure Weight Height 78/minute 149/96 47.2 kg 1.549 m Ila Schwartz MD 12/16/2017 11:54 PM Signed EPILEPSY CLINIC NOTE December 12, 2017 REFERRAL: Luan Mendes for an opinion regarding seizure- like events. CHIEF COMPLAINT: possible seizures, HISTORY OF PRESENT ILLNESS: Ms. 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 She is accompanied by her mother. Events started approximately three month ago. She does not remember the episode but her friend who witnessed it reported convulsions lasting for 30 minutes. She knows that slept for 5 hours after the episode. She was prescribed LEV 500 mg BID but despite taking medications she had another convulsive episodes. She was taken into ER where she was recommended to increase LEV to 750 BID. But she could not tolerate higher dose and decided to take it only once daily. The last convulsive episode occurred on 12/06/2017 and also lasted for about 20 minutes. After the episode she slept for three hours. In addition to convulsive events she has episodes of anxiety lasting for 5-10 minutes when she feels shaky, has stomach upset, feels scared, something bad going to happen. These events occurring during last year once or twice a day. PCP prescribed antidepressant for this episodes but patient does not remember the name of the medication. Seizure risk factors: 1. Head Trauma no 2. ATHLETE MANAGER Infections (no) 3. Family History of Seizures (no) 4. Developmental Delay (yes) 5. Febrile Seizures (no) 6. ATHLETE MANAGER Tumors (optic glioma) 7. ATHLETE MANAGER Vascular Disease (no) 8. 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 No associated enhancement or pathologic parenchymal or leptomeningeal enhancement elsewhere in the brain. The right optic nerve, optic chiasm and optic tracts appear within normal limits. 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 I reviewed the patient's prior imaging and agree with this interpretation. Anticonvulsant History: -Current AEDs:LEV The patient's side effects to the current medications are spacing out, decrease appetite. CURRENT MEDICATIONS: Outpatient Prescriptions Marked as Taking for the 12/12/17 encounter (Office Visit) with Neur Epilepsy Clinic Consult: levETIRAcetam (KEPPRA) 500 mg tablet Take 500 mg by mouth twice daily. Disp: Rfl: medroxyPROGESTERone (DEPO-PROVERA) 150 mg/mL injection Inject 150 mg intramuscularly every 12 weeks. Disp: Rfl: TOPIRAMATE (TOPAMAX ORAL) Take 100 mg by mouth twice daily. 11/29 pt unsure of dose Takes 2 x daily Disp: Rfl: diazePAM (VALIUM) 5 mg tablet Take 5 mg by mouth every 8 hours as needed. Disp: Rfl: folic acid 1 mg tablet Take 1 mg by mouth once daily. Disp: Rfl: fluticasone (FLONASE) 50 mcg/actuation nasal spray Use 1 [place] in each nostril once daily. Disp: Rfl: IBUPROFEN/DIPHENHYDRAMINE CIT (ADVIL PM ORAL) Take by mouth as needed. Disp: Rfl: In addition takin antidepressant for anxiety, but does not remember the name of the medication. ALLERGIES: ALLERGIES Allergen Reactions - Acetaminophen Unknown - Diphenhydramine Unknown - Ibuprofen Unknown - Seasonal Allergies Cough PAST MEDICAL HISTORY: Primary Care Provider:Tomás Dickey MD Primary neurologist:Luan Mendes PAST SURGICAL HISTORY: Tonsillectomy (childhood) Elbow surgery FAMILY MEDICAL HISTORY: FAMILY HISTORY Problem Relation Age of Onset - Asthma Mother Maternal side - Cancer Mother Maternal side - Diabetes Mother Maternal side - Neurofibromatosis [OTHER] Mother - Cancer Father Paternal side - Diabetes Father Paternal side - Ischemic Heart Disease Father [place] - Asthma Father Paternal side - Hypertension Father - Diabetes Maternal Grandmother - Heart Maternal Grandmother - Neurofibromatosis [OTHER] Maternal Grandmother - Heart Paternal Grandmother CHF - Ischemic Heart Disease Paternal Grandmother - Neurofibromatosis [OTHER] Brother - Neurofibromatosis [OTHER] Brother - Neurofibromatosis [OTHER] Sister -No family history of seizures SOCIAL HISTORY: -Lives in with her sone (3 year old). -Not . -Occupation: no -Smoking: no -Alcohol use: once a month -Substance use: high coffein intake -Driving Status: Not driving. REVIEW OF SYSTEMS: GENERAL: No fever, unintentional weight loss, LAD, fatigue, night sweats HEENT: No headache, vertigo, trauma, loss of vision, photophobia, diplopia, visual hallucinations, blurriness, tinnitis, loss of hearing, dysarthria, dysphagia, hoarseness SKIN: Multiple cafe au lait spots MUSCULOSKELETAL: No joint pain, swelling, stiffness. Left elbow flexion is limited. RESPIRATORY: No cough, dyspnea, orthopnea CARDIOVASCULAR: No chest pain, palpitations, pedal edema, clots GI: No nausea, vomiting, diarrhea, constipation, abdominal pain : No dysuria, hematuria, urgency, increased frequency, incontinence, impotence NEURO: See HPI. No changes in sensation, weakness, balance, memory changes, headache, tremor. EOMI. Full power of arms and legs proximally and distally. Primary gaze is conjugated. Visual field is restricted on the left. PSYCH: history of anxiety. VITAL SIGNS: Blood pressure 149/96, pulse 78, height 154.9 cm (5' 1), weight 47.2 kg (104 lb). Current EEG (December 12, 2017) showed normal results. I reviewed the patient's prior EEG and agree with this interpretation. IMPRESSION: The patient has risk factors for epilepsy such as neurofibromatosis and associated developmental delay. But provided history (20-30 minutes convulsion) and the results of the evaluation (normal EEG) suggest the possibility of a non-epileptic events. To test these two possibilities we recommended video EEG evaluation. In case if these episodes were confirmed as epileptic we are planning to switch LEV to LTG or OXC. Otherwise she may not need antiepileptic medications. Epilepsy Classification: Paroxysmal Events vs Epilepsy Etiology: Other unknown PLAN: -Patient will undergo further evaluation with video EEG -Medical management: Continue current medications -Education: The following issues were discussed with the patient on this visit and written instructions provided as below: Seizure precautions and safety, seizure first aide, seizure triggers, guidelines. Patient has the clinic contact information and was asked to call with any questions. FOLLOW-UP: The patient was scheduled for a return visit in after EMU evaluation. Arlene Shah MD Clinical fellow [facility], [place], [facility] PH[facility] NOTE OF PERSONAL INVOLVEMENT IN CARE ? I have reviewed the history and physical examination obtained and documented by the fellow and I personally participated in the martinez components. I have discussed the case and management of the patient's care. CARE COORDINATION: The majority of the visit was spent counseling and/or coordinating care for the patient. Tqah-rz-ekbg time was 40 minutes Ila Schwartz MD December 16, 2017 11:53 PM Ila Schwartz MD 12/12/2017 2:44 PM Signed - Continue current anti-epileptic medications (Levetirectam/Keppra) - Please schedule epilepsy monitoring unit admission for diagnosis of spell. Referring Provider: LUAN MENDES [[id number]] Allergies As of Date: 12/12/2017 Noted Allergy Reaction ACETAMINOPHEN 11/20/2017 16 - Unknown DIPHENHYDRAMINE 11/20/2017 16 - Unknown IBUPROFEN 11/20/2017 16 - Unknown SEASONAL ALLERGIES 12/12/2017 3 - Cough Date Reviewed: 12/12/2017 Reviewed by: Antoni Martinez Ma - Fully Assessed Reason for Visit: Event [921] Reason For Visit History Recorded Visit Diagnosis:Seizure-like activity (HCC) [R56.9] Prescriptions as of 12/12/2017 Sig: LEVETIRACETAM 500 MG TABLET Take 500 mg by mouth twice da* MEDROXYPROGESTERONE 150 MG/ML* Inject 150 mg intramuscularly* TOPAMAX ORAL Take 100 mg by mouth twice da* DIAZEPAM 5 MG TABLET Take 5 mg by mouth every 8 ho* FOLIC ACID 1 MG TABLET Take 1 mg by mouth once daily. FLUTICASONE 50 MCG/ACTUATION * Use 1 [place] in each nostril o* ADVIL PM ORAL Take by mouth as needed. IV CONTRAST (RADIOLOGY PROCED* MRI Brain Inject, intravenous* TRIAMCINOLONE ACETONIDE NASAL Use in the nose once daily. NAPROXEN SODIUM 220 MG TABLET Take 220 mg by mouth daily at* OFLOXACIN 0.3 % EAR DROPS Use 5 Drops in the left ear t* Patient not taking: Reported on 12/12/2017 IBUPROFEN 200 MG CAPSULE Take 1-3 capsules by mouth as* Medication notes this encounter TOPAMAX ORAL >> Antoni Martinez Ma 12/12/2017 12:46 PM >> ANTONI MARTINEZ MA [facility] Dec 12, 2017 12:46 PM OFLOXACIN 0.3 % EAR DROPS >> Antoni Martinez Ma 12/12/2017 12:46 PM >> ANTONI MARTINEZ MA [facility] Dec 12, 2017 12:46 PM Problem List As Of Date 12/12/2017 Noted Resolved Dislocation of Elbow [832] INVALID FOR*02/21/2010 IDIOPATHIC SCOLIOSIS [M41.20] INVALID FOR* NEUROFIBROM,TYPE I,VON RECKLING [Q85.01] INVALID FOR* 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 Learning disability [F81.9] More... Adjustment disorder [F43.20] More... 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 Follow-up and Disposition History Recorded Encounter Status:Closed by ILA SCHWARTZ MD on 12/16/17 DISCHARGE INSTRUCTION Observed: 12/09/2017 Status: F Source: [place] 3:37 AM [facility] REPOSITORY [facility] Medical Records Department [address] [place] [address] Discharge Instruction 12/09/17 0336 MR#: [id number] Acct: [id number] Name: ANA LUISA STRICKLAND Rep #: [id number] : 1995 22 From: Tessa Mckinney DO PCP: Tomás Dickey MD Status: REG ER ED Disposition - Plan for ED Patient: Disposition: Home or Assisted Living Chief Complaint: Abd Pain Instructions: ED Abdominal Pain Unkn Cause Referrals: Tomás Dickey MD [Primary Care Provider] - What to do if you have Problems For any increased pain, shortness of breath, bleeding, nausea or vomiting, chest pain, or any unexpected problems, contact your Primary Care Provider. Call [facility] ([phone]) or report to the closest Emergency Room. Call 911 if necessary. 12/09/17 033 <Electronically signed by Tessa Mckinney DO> Date Tessa Mckinney DO Cosigner Signature (If Indicated): Date CC: Tomás Dickey MD URINALYSIS, COMPLETE Collected: 12/09/2017 Status: F Source: [place] 1:55 AM [facility] REPOSITORY Order Comment: How was Urine Obtained? CLEAN CATCH TYPE CODE TESTS RESULT OUT OF RANGE REFERENCE UNITS LAB L400.3000 Yellow COLOR Normal Yellow LAB L400.3050 Clear Normal CLARITY Clear LAB L400.3200 Normal mg/dl Normal GLUCOSE, UR Normal LAB L400.3300 Negative mg/dL Normal BILIRUBIN URINE Negative LAB L400.3400 Negative mg/dl Normal KETONE UR Negative LAB L400.3465 1.002-1.030 Normal SP.GR. DIPSTX 1.025 LAB L400.3550 5.0 - 8.0 pH UR Normal 5.0 LAB L400.3600 Negative mg/dl High PROT 15 DIPSTX LAB L400.3700 Normal mg/dl Normal UROBILI Normal LAB L400.3750 Negative Normal NITRITE UR Negative LAB L400.3780 Negative /ul High OCCULT BLOOD-UR 150 LAB L400.3800 Negative /ul High LEUK ESTERASE 500 LAB L400.4050 0-5 /hpf WBC Normal 10-25 SEEN LAB L400.4100 0-5 /hpf Normal RBC-UA 0-5 SEEN LAB L400.4150 5-10 /hpf SQUAM > Normal EPI 100 SEEN LAB L400.4300 None Seen /hpf 0 Normal BACTERIA SEEN LAB L400.4350 <or=2+ /hpf 2+ Normal MUCUS, URINE Performed By: #### L400.0001 #### [facility] [address] [place], [address] CBC W/DIFF, AUTOMATED Collected: 12/09/2017 Status: F Source: [place] 1:50 AM [facility] REPOSITORY TYPE CODE TESTS RESULT OUT OF RANGE REFERENCE UNITS LAB L100.1000 4.4-11.0 K/mm3 Normal WBC 9.8 LAB L100.1200 4.2-5.4 M/mm3 Normal RBC 4.74 LAB L100.1300 12.0-15.0 g/dl Normal HGB 14.4 LAB L100.1400 37-47 % Normal HCT 42.5 LAB L100.1500 81-99 fL Normal MCV 89.7 LAB L100.1600 27.0-32.0 pg Normal MCH 30.4 LAB L100.1700 32-36 g/gl Normal MCHC 33.9 LAB L100.1810 11.6-14.6 % Normal RDW CV 13.3 LAB L100.1820 35.1-43.9 fl Normal RDW SD 43.5 LAB L100.1900 150-450 K/mm3 Normal PLT 207 LAB L100.2000 6.2-12.0 fl Normal MPV 10.9 LAB L100.2100 47-70 % Normal NEUT% 66.0 LAB L100.2200 19-41 % Normal LY% 21.6 LAB L100.2300 0-10 % High MONO% 11.0 LAB L100.2400 0-5 % Normal EO% 0.8 LAB L100.2500 0-1 % Normal BASO% 0.4 LAB L100.2550 0.0-0.9 % Normal IM GRAN % 0.200 Result Comment: IG% - Immature Granulocytes (promyelocytes, myelocytes and metamyelocytes) > 1% indicates that a LEFT SHIFT is Present. LAB L100.2620 2.0-7.7 X10 3/uL Normal Absolute Neut 6.5 LAB L100.2720 0.83-4.51 X10 3/ul Normal Absolute Lymph 2.12 Performed By: #### L100.0100 #### [facility] [address] [place], [address] COMPREHENSIVE METABOLIC Collected: 12/09/2017 Status: F Source: [facility] 1:50 AM [facility] REPOSITORY TYPE CODE TESTS RESULT OUT OF RANGE REFERENCE UNITS LAB L501.0100 74-106 mg/dL Normal GLU 99 Result Comment: Please note revised GLUCOSE reference range effective 2017. LAB L501.1000 7-18 mg/dL Normal BUN 7 LAB L501.1100 0.55-1.02 mg/dL Normal CREAT,SERUM 0.65 Result Comment: The validity of the calculated GFR AND GFRAA in patients over 70 years has not been determined. Clinical correlation is essential. LAB L501.1110 >60 mL/min Normal EST GFR 121 Result Comment: Non- GFR Calc LAB L501.1115 >60 mL/min Normal EST GFR - AA 147 Result Comment: GFR Calc LAB L501.1255 ml/min Normal Estimated CRCL 102.44 LAB L501.1300 10-20 RATIO BUN/CRE Normal 10.8 LAB L501.1500 6.4-8. g/dL 2 T PROT Normal 7.2 LAB L501.1800 3.2-5. g/dL 0 ALB Normal 4.2 LAB L501.1950 2.2-4. g/dL 2 GLOB Normal 3.0 LAB L501.2000 0.9-2. RATIO 4 A/G Normal 1.4 LAB L501.2200 8.5-10 mg/dL .1 CA Normal 8.5 LAB L501.4100 15-37 U/L Low AST 14 LAB L501.4305 45-117 U/L ALK P Normal 57 LAB L501.4405 13-56 U/L ALT Normal 16 LAB L501.4600 0.20-1 mg/dL .00 T BILI Normal 0.50 LAB L501.5300 136-14 mmol/L 5 NA Normal 140 LAB L501.5600 3.5-5. mmol/L 1 K Normal 3.6 LAB L501.5900 98-107 mmol/L High CL 109 LAB L501.6100 21.0-3 mmol/L 2.0 CO2 Normal 23.0 LAB L501.6200 5-15 GAP Normal 8 Performed By: #### L500.4050, L501.2450 #### [facility] [address] [place], [address] LIPASE Collected: 12/09/2017 Status: F Source: [place] 1:50 AM [facility] REPOSITORY TYPE CODE TESTS RESULT OUT OF RANGE REFERENCE UNITS LAB L501.2450 73-393 U/L Normal LIPASE 114 Performed By: #### L500.4050, L501.2450 #### [facility] [place], [address] ,SERUM,HCG QUALI. Collected: Status: F Source: [place] 12/09/2017 1:50 AM [facility] REPOSITORY TYPE CODE TESTS RESULT OUT OF REFERENCE UNITS RANGE LAB L700.7000 0-9 Nonpreg Negative Normal HCGSQUAL NEGATIVE LAB L700.6700 =>Qualitative mIU/mL Normal HCG Qual < 1 triggr Performed By: #### L700.6800 #### [facility] [place], [address] ABDOMEN/PELVIS WITHOUT Observed: 12/09/2017 Status: F Source: [place] CONT 1:48 AM [facility] REPOSITORY [facility] Imaging Services [address] [place] [id number] Abdomen/Pelvis without Cont MR#: [id number] Acct: [id number] Name: ANA LUISA STRICKLAND Rep #: [id number] : 1995 F 22 From: Rosa Maria Hanna MD PCP: Tomás Dickey MD Status: DEP Study: Abdomen/Pelvis without Cont Date of Exam: 12/09/17 Exam# [id number] Ordering Dr: Tessa Mckinney DO STUDY: CT ABDOMEN AND PELVIS WITHOUT CONTRAST REASON FOR EXAM: Female, 22 years old. Abdominal and back pain, nausea and vomiting x2 months. RADIATION DOSAGE (If Supplied By Facility): CTDIvol = ( 6.19 ) mGy, DLP = ( 302.88 ) mGycm TECHNIQUE: Transaxial 2.5 mm images were obtained from the dome of the diaphragm to the symphysis pubis without oral contrast, and without intravenous contrast. Sagittal and coronal images were reconstructed. This examination is limited for the evaluation of gastrointestinal, solid organs and vascular structures due to the lack of intravenous and oral contrast. Individualized dose optimization techniques were used for this CT. COMPARISON: CT abdomen pelvis 11/21/2017. FINDINGS: The visualized lung bases are unremarkable. The visualized portions of the heart are within normal limits. Normal liver. Normal gallbladder and extrahepatic biliary system. Normal spleen. Normal pancreas. Normal bilateral adrenal glands. Normal right kidney. Normal left kidney. There is no obstructive uropathy, obstructive renal or ureteral calculi. Normal visualized stomach. Fluid-filled small bowel without fold wall thickening or significant dilatation. Normal colon. The appendix is visualized and appears normal. Image 34 series 601 Normal abdominal aorta. Normal inferior vena cava. Normal retroperitoneum. Normal urinary bladder. Normal visualized uterus and adnexa Normal abdominal wall. Normal osseous structures. CT/Abdomen/Pelvis without Cont IMPRESSION: There is no acute abdomen and pelvic pathology. There is no significant interval change. Electronically Signed: Rosa Maria Hanna MD at 3:24 EDT , Service support , CC: Tessa Mckinney DO; Tomás Dickey MD Director Of Campus Recreation: Signed MRI BRAIN WO/W Observed: 11/28/2017 Status: F Source: [place] IVCON 2:[address] [facility] REPOSITORY * * *Final Report* * * DATE OF EXAM: Nov 28 2017 2:21PM RA 0295 - MRI BRAIN WO/W IVCON / PROCEDURE REASON: multiple diagnoses * * * * Physician Interpretation * * * * EXAMINATION: MRI BRAIN WO/W IVCON CLINICAL HISTORY: Unspecified convulsions. Neurofibromatosis, type 1. TECHNIQUE: Routine brain MRI protocol without and with contrast including diffusion images. MQ: [id number] MR Contrast: Dotarem Contrast Dose: 9 cc Route of Administration: IV COMPARISON: MR brain 12/12/2009 RESULT: Acute Change: No evidence of an acute intracranial process. Hemorrhage: No evidence of prior parenchymal hemorrhage within the constraints of the acquisition. 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 No associated enhancement or pathologic parenchymal or leptomeningeal enhancement elsewhere in the brain. The right optic nerve, optic chiasm and optic tracts appear within normal limits. 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 Parenchyma: No significant volume loss for age. Ventricles: Normal caliber and morphology. Skull Base: Hypothalamic and pituitary region are grossly normal. Craniocervical junction is normal. No significant marrow replacement process. Vasculature: Major intracranial arterial structures, and dural venous sinuses show typical flow void, suggesting patency by spin echo criteria. Other: Small retention cysts in the right maxillary sinus. The mastoid air cells are clear. The orbits and extracranial soft tissues are unremarkable. IMPRESSION: Improvement without resolution of patchy foci of parenchymal signal abnormality and stable left optic glioma since 12/12/2009, as detailed. No pathologic intracranial enhancement. Director Of Campus Recreation: RYANN Transcribe Date/Time: Nov 28 2017 2:26P Dictated by : CONNOR JASSO MD This examination was interpreted and the report reviewed and electronically signed by: YEMI LOUIS MD on Nov 28 2017 2:43PM EST [id number] Observed: 11/28/2017 Status: COMPLETED Source: [place] 2:19 PM [facility] REPOSITORY HNO ID: [id number] Author: Chacha Singh (Rt) Service: (none) Author Type: Parking Lot Manager Type: Progress Notes Filed: 11/28/2017 2:20 PM Note Text: Radiology Service Progress Note PATIENT NAME: Ana Luisa Strickland DATE OF SERVICE: November 28, 2017 TIME: 2:19 PM PATIENT IDENTITY VERIFICATION COMPLETED USING TWO (2) METHODS: Patient confirmed name verbally and Date of . PATIENT GENDER DATA: Female. status: : No status: NO. PATIENT RELEVANT IMPLANT DATA REVIEWED: Yes CONTRAST INDUCED NEPHROPATHY RISK FACTORS: Not applicable CREATININE: Creatinine Date Value Ref Range Status 11/13/2017 0.74 0.58 - 0.96 mg/dL Final 11/29/2016 0.88 0.58 - 0.96 mg/dL Final 09/03/2012 0.61 0.40 - 1.30 mg/dL Final eGFR-All Other Races Date Value Ref Range Status 11/13/2017 >60 . Final Comment: eGFR (Estimated GFR) Units of measure: mL/min/1.73 meters squared eGFR is derived from the reexpressed MDRD Study equation using the following parameters: serum creatinine, age, gender and race. The creatinine assay has been calibrated to be traceable to IDMS. An eGFR <60 mL/min/1.73m2 for >3 months is consistent with chronic kidney disease. Refer to KDOQI guidelines for clinical interpretation. In patients with unstable renal function, e.g. those with acute kidney injury, the eGFR may not accurately reflect actual GFR. eGFR- Date Value Ref Range Status 11/13/2017 >60 Final P.O.C.T. RESULTS: N/A November 28, 2017 RADIOLOGIST NOTIFIED?: No ALLERGIES: Reviewed and unchanged CONTRAST ALLERGY: NO. PERIPHERAL IV ACCESS: Ambulatory: IV type: A peripheral IV was started in the Right antecubital site with a Angio cath: 22 gauge., Site assessment: Clean,Dry and Intact, Site disposition Discontinued RADIOLOGY DEPARTMENT: MR; Exam(s) Completed: Head: Routine Brain SIGNED BY: RT Samantha November 28, 2017 2:19 PM PROGRESS Observed: 11/28/2017 Status: COMPLETED Source: [place] 11:48 AM [facility] REPOSITORY HNO ID: [id number] Author: Michell Aguilar) [place] Service: (none) Author Type: Stock Control Clerk Type: Progress Notes Filed: 11/28/2017 11:48 AM Note Text: Radiology Service Progress Note PATIENT NAME: Ana Luisa Strickland DATE OF SERVICE: November 28, 2017 TIME: 11:48 AM PATIENT IDENTITY VERIFICATION COMPLETED USING TWO (2) METHODS: Patient confirmed name verbally and Date of . PATIENT GENDER DATA: Female. status: : No status: N/A PATIENT RELEVANT IMPLANT DATA REVIEWED: Not Applicable RADIOLOGY DEPARTMENT: Ultrasound PERIPHERAL IV DATA: Not applicable SIGNED BY: MICHELL DREW RDMS T November 28, 2017 11:48 AM US KIDNEY/BLADDER Observed: 11/28/2017 Status: F Source: [place] 11:47 AM [facility] REPOSITORY * * *Final Report* * * DATE OF EXAM: Nov 28 2017 11:47AM U 1055 - US KIDNEY/BLADDER / PROCEDURE REASON: multiple diagnoses * * * * Physician Interpretation * * * * EXAMINATION: RENAL ULTRASOUND HISTORY: Neurofibromatosis, type 1 Tachycardia, unspecified Hypertensive chronic kidney disease with stage 1 through stage 4 chronic kidney disease, or unspecified chronic kidney disease TECHNIQUE: Sonography of the kidneys and urinary bladder was performed. Images were obtained and stored in a permanent archive. MQ: UR_1 COMPARISON: None RESULT: Right Kidney: -Renal length: 9.0 cm -Parenchyma: Normal echogenicity -Collecting system: No hydronephrosis on the RIGHT side -Calculus: No stones in either kidney -Lesion: No masses Left Kidney: -Renal length: 9.0 cm -Parenchyma: Normal echogenicity -Collecting system: No hydronephrosis on the LEFT side -Calculus: No stones in either kidney -Lesion: No masses Bladder: Bladder is unremarkable IMPRESSION: Negative exam Director Of Campus Recreation: RYANN Transcribe Date/Time: Nov 28 2017 2:57P Dictated by : JUSTO HUSTON DO This examination was interpreted and the report reviewed and electronically signed by: JUSTO HUSTON DO on Nov 28 2017 3:01PM EST [id number] DISCHARGE INSTRUCTION Observed: 11/21/2017 Status: F Source: [place] 1:12 AM [facility] Medical Records Department [address] [place] [address] Discharge Instruction 11/21/17 0111 MR#: [id number] Acct: [id number] Name: ANA LUISA STRICKLAND Rep #: [id number] : 1995 22 From: Jerrod Kan DO PCP: Tomás Dickey MD Status: REG ER ED Disposition - Plan for ED Patient: Chief Complaint: Abd Pain Instructions: ED Abdominal Pain Unkn Cause, ED UTI Cystitis Female Prescriptions: Ondansetron [Zofran Odt] 4 mg PO Q8H PRN PRN #10 tab PRN Reason: Nausea Lansoprazole [Prevacid] 30 mg PO DAILY #30 cap Smz/Tmp Ds [Bactrim Ds] 1 tab PO BID #6 tab Referrals: Tomás Dickey MD [Primary Care Provider] - 3-5 Days What to do if you have Problems For any increased pain, shortness of breath, bleeding, nausea or vomiting, chest pain, or any unexpected problems, contact your Primary Care Provider. Call [facility] ([phone]) or report to the closest Emergency Room. Call 911 if necessary. 11/21/17 0112 <Electronically signed by Jerrod Kan DO> Date Jerrod Kan DO Cosigner Signature (If Indicated): Date CC: Tomás Dickey MD EMERGENCY DEPARTMENT Observed: 11/21/2017 Status: F Source: [place] SUMMARY 1:11 AM [facility] REPOSITORY [facility] Medical Records Department [address] [place] [address] Emergency Department Summary 11/21/17 0108 MR#: [id number] Acct: [id number] Name: ANA LUISA STRICKLAND Rep #: [id number] : 1995 22 From: Jerrod Kan DO PCP: Tomás Dickey MD Status: REG ER - ER Visit Summary Date of Service: 11/21/17 Chief Complaint: [Abdominal pain History of Present Illness: The patient is a 22 F [presents to the emergency department complaint of abdominal discomfort for about 2-3 weeks. Patient states that around noon she ate a [employer] a chicken sandwich and since then she did not been feeling well. Patient planes of nausea. Patient this evening was at [employer] again using their Wi-Fi when she began feeling nauseated and lightheaded. Patient presents the ER for evaluation. Patient states that she had her Keppra dose increased about 2 weeks ago she is not sure if that has something to do with her symptoms. Patient does have a history of seizure disorder and migraines. Patient denies urinary symptoms. Patient thinks it is possible she might be although she does take the Depakote shot every 3 months and has not had a period in years. Patient denies fever at home.] Physical Examination: HEENT-PERRLA, EOMI. Cranial nerves II through XII grossly intact. TMs clear. Mucous membranes moist. No adenopathy. Cardiovascular-regular rate and rhythm without murmur or ectopy Lungs-clear to auscultation, chest wall stable without crepitus or subcu emphysema Abdomen-normoactive bowel sounds, soft. Mild diffuse tenderness. There is no rebound, rigidity, or perineal signs. Negative Monroe sign. Extremities-intact 4, normal range of motion, normal pulses, atraumatic[] Test Results: [CBC with differential obtained showed a white count of 8.9, hemoglobin 13.6, hematocrit 40, platelets 204. Chemistries unremarkable. LFTs were normal. Lipase was 141. Urinalysis positive for 500 leukocyte esterase and 10-25 WBCs as well as rare bacteria. HCG was negative. CT flank showed nothing acute.] Emergency Department Course and Treatment: [Patient was started on Bactrim and given Zofran in the emergency department.] Treatment Plan: [Patient will be given a perception for Bactrim and Zofran] patient also will be started on Prevacid. Disposition: [Discharged home in stable condition] Impression: [Abdominal pain-etiology uncertain UTI] This note was generated with [employer] dictation software. It may contain incorrect words, spelling, and punctuation that were not noted in review of the chart prior to signing ED Disposition - Plan for ED Patient: Chief Complaint: Abd Pain Referrals: Tomás Dickey MD [Primary Care Provider] - What to do if you have Problems For any increased pain, shortness of breath, bleeding, nausea or vomiting, chest pain, or any unexpected problems, contact your Primary Care Provider. Call [facility] ([phone]) or report to the closest Emergency Room. Call 911 if necessary. 11/21/17 0111 <Electronically signed by Jerrod Kan DO> Date Jerrod Kan DO Cosigner Signature (If Indicated): Date CC: Tomás Dickey MD URINALYSIS, COMPLETE Collected: 11/21/2017 Status: F Source: [place] 12:26 AM [facility] REPOSITORY Order Comment: Order Date: 11/20/17 How was Urine Obtained? CLEAN CATCH TYPE CODE TESTS RESULT OUT OF RANGE REFERENCE UNITS LAB L400.3000 Yellow COLOR Normal Yellow LAB L400.3050 Clear Normal CLARITY Clear LAB L400.3200 Normal mg/dl Normal GLUCOSE, UR Normal LAB L400.3300 Negative mg/dL Normal BILIRUBIN URINE Negative LAB L400.3400 Negative mg/dl High 5 KETONE UR LAB L400.3465 1.002-1.030 Normal SP.GR. DIPSTX 1.025 LAB L400.3550 5.0 - 8.0 pH UR Normal 6.0 LAB L400.3600 Negative mg/dl PROT Normal DIPSTX Negative LAB L400.3700 Normal mg/dl High 1 UROBILI LAB L400.3750 Negative Normal NITRITE UR Negative LAB L400.3780 Negative /ul High 50 OCCULT BLOOD-UR LAB L400.3800 Negative /ul High LEUK ESTERASE 500 LAB L400.4050 0-5 /hpf WBC Normal 10-25 SEEN LAB L400.4100 0-5 /hpf Normal RBC-UA 0-5 SEEN LAB L400.4150 5-10 /hpf SQUAM Normal EPI 0-5 SEEN LAB L400.4300 None Seen /hpf Normal BACTERIA RARE LAB L400.4350 <or=2+ /hpf 1+ Normal MUCUS, URINE Performed By: #### L400.0001 #### [facility] [address] [place], [address] ABDOMEN/PELVIS WITHOUT Observed: 11/21/2017 Status: F Source: [place] CONT 12:19 AM [facility] REPOSITORY [facility] Imaging Services [address] [place] [address] Abdomen/Pelvis without Cont MR#: [id number] Acct: [id number] Name: ANA LUISA STRICKLAND Rep #: [id number] : 1995 F 22 From: Rosa Maria Hanna MD PCP: Tomás Dickey MD Status: REG ER Study: Abdomen/Pelvis without Cont Date of Exam: 11/21/17 Exam# [id number] Ordering Dr: Jerrod Kan DO STUDY: CT ABDOMEN AND PELVIS WITHOUT CONTRAST REASON FOR EXAM: Female, 22 years old. Abdominal pain, nausea and vomiting, elevated blood pressure RADIATION DOSAGE (If Supplied By Facility): CTDIvol = ( 6.16 ) mGy, DLP = ( 289.37 ) mGycm TECHNIQUE: Transaxial 2.5 mm images were obtained from the dome of the diaphragm to the symphysis pubis without oral contrast, and without intravenous contrast. Sagittal and coronal images were reconstructed. This examination is limited for the evaluation of gastrointestinal, solid organs and vascular structures due to the lack of intravenous and oral contrast. Individualized dose optimization techniques were used for this CT. COMPARISON: None. FINDINGS: The visualized lung bases are unremarkable. The visualized portions of the heart are within normal limits. Normal liver. Normal gallbladder and extrahepatic biliary system. Normal spleen. There is a splenule. Normal pancreas. Normal bilateral adrenal glands. Normal right kidney. Normal left kidney. Normal visualized stomach. Normal small intestine. Normal colon. The appendix is visualized and appears normal. Image [id number] series 2. Normal abdominal aorta. Normal inferior vena cava. Normal retroperitoneum. Decompressed urinary bladder. Normal visualized uterus and adnexa. Normal abdominal wall. Normal osseous structures. CT/Abdomen/Pelvis without Cont IMPRESSION: There is no acute abdomen and pelvic pathology. Electronically Signed: Rosa Maria Hanna MD at 1:03 EDT , Service support , CC: Jerrod Kan DO; Tomás Dickey MD Director Of Campus Recreation: Signed CBC W/DIFF, AUTOMATED Collected: 11/20/2017 Status: F Source: [place] 11:35 PM [facility] REPOSITORY TYPE CODE TESTS RESULT OUT OF RANGE REFERENCE UNITS LAB L100.1000 4.4-11.0 K/mm3 Normal WBC 8.9 LAB L100.1200 4.2-5.4 M/mm3 Normal RBC 4.44 LAB L100.1300 12.0-15.0 g/dl Normal HGB 13.6 LAB L100.1400 37-47 % Normal HCT 39.9 LAB L100.1500 81-99 fL Normal MCV 89.9 LAB L100.1600 27.0-32.0 pg Normal MCH 30.6 LAB L100.1700 32-36 g/gl Normal MCHC 34.1 LAB L100.1810 11.6-14.6 % Normal RDW CV 13.8 LAB L100.1820 35.1-43.9 fl High RDW SD 44.7 LAB L100.1900 150-450 K/mm3 Normal PLT 204 LAB L100.2000 6.2-12.0 fl Normal MPV 10.6 LAB L100.2100 47-70 % Normal NEUT% 59.9 LAB L100.2200 19-41 % Normal LY% 28.3 LAB L100.2300 0-10 % High MONO% 10.1 LAB L100.2400 0-5 % Normal EO% 1.1 LAB L100.2500 0-1 % Normal BASO% 0.4 LAB L100.2550 0.0-0.9 % Normal IM GRAN % 0.200 Result Comment: IG% - Immature Granulocytes (promyelocytes, myelocytes and metamyelocytes) > 1% indicates that a LEFT SHIFT is Present. LAB L100.2620 2.0-7.7 X10 3/uL Normal Absolute Neut 5.3 LAB L100.2720 0.83-4.51 X10 3/ul Normal Absolute Lymph 2.52 Performed By: #### L100.0100 #### [facility] [address] [place], [address] COMPREHENSIVE METABOLIC Collected: 11/20/2017 Status: F Source: [facility] 11:35 PM [facility] REPOSITORY TYPE CODE TESTS RESULT OUT OF RANGE REFERENCE UNITS LAB L501.0100 74-106 mg/dL Normal GLU 84 Result Comment: Please note revised GLUCOSE reference range effective 2017. LAB L501.1000 7-18 mg/dL Low BUN 6 LAB L501.1100 0.55-1.02 mg/dL Normal CREAT,SERUM 0.67 Result Comment: The validity of the calculated GFR AND GFRAA in patients over 70 years has not been determined. Clinical correlation is essential. LAB L501.1110 >60 mL/min Normal EST GFR 117 Result Comment: Non- GFR Calc LAB L501.1115 >60 mL/min Normal EST GFR - AA 142 Result Comment: GFR Calc LAB L501.1255 ml/min Normal Estimated CRCL 99.39 LAB L501.1300 10-20 RATIO Low BUN/CRE 9.0 LAB L501.1500 6.4-8. g/dL Normal 2 T PROT 7.0 LAB L501.1800 3.2-5. g/dL Normal 0 ALB 4.2 LAB L501.1950 2.2-4. g/dL Normal 2 GLOB 2.8 LAB L501.2000 0.9-2. RATIO Normal 4 A/G 1.5 LAB L501.2200 8.5-10 mg/dL Normal .1 CA 8.7 LAB L501.4100 15-37 U/L Low AST 14 LAB L501.4305 45-117 U/L Normal ALK P 51 LAB L501.4405 13-56 U/L Normal ALT 16 LAB L501.4600 0.20-1 mg/dL Normal .00 T BILI 0.30 LAB L501.5300 136-14 mmol/L Normal 5 NA 144 LAB L501.5600 3.5-5. mmol/L Normal 1 K 3.7 LAB L501.5900 98-107 mmol/L High CL 111 LAB L501.6100 21.0-3 mmol/L Normal 2.0 CO2 26.0 LAB L501.6200 5-15 Normal GAP 7 Performed By: #### L500.4050, L501.2450 #### [facility] [address] [place], [address] LIPASE Collected: 11/20/2017 Status: F Source: [place] 11:35 PM [facility] REPOSITORY TYPE CODE TESTS RESULT OUT OF RANGE REFERENCE UNITS LAB L501.2450 73-393 U/L Normal LIPASE 141 Performed By: #### L500.4050, L501.2450 #### [facility] [address] [place], [place], [address] ,SERUM,HCG QUALI. Collected: Status: F Source: [place] 11/20/2017 11:35 PM [facility] REPOSITORY TYPE CODE TESTS RESULT OUT OF REFERENCE UNITS RANGE LAB L700.7000 0-9 Nonpreg Negative Normal HCGSQUAL NEGATIVE LAB L700.6700 =>Qualitative mIU/mL Normal HCG Qual < 1 triggr Performed By: #### L700.6800 #### [facility] [address] [place], [address] HIVRP Collected: 11/14/2017 Status: F Source: [facility] 1:56 PM [facility] REPOSITORY TYPE CODE TESTS RESULT OUT OF RANGE REFERENCE UNITS LAB HIVRO(LOIN Non-Reactive C) Rapid HIV 1/2 Antibody Non-Reactive LAB HIVROI(MANUEL NC) Unknown RHIV 1/2 Ab Int Non-Reactive LAB HIVAG(LOIN Non-Reactive C) HIV p24 Antigen Non-Reactive LAB P24AGI(MANUEL NC) Unknown HIV P24 Int Non-reactive LAB [id number](LOINC) QC RHIV Valid Performed By: #### HIVRP #### [address] [address] #### RPR, HEPAC #### [place] [address] RPR Collected: 11/14/2017 Status: F Source: [facility] 1:56 [facility] REPOSITORY TYPE CODE TESTS RESULT OUT OF RANGE REFERENCE UNITS LAB RPR(LOINC) Non-Reactive RPR Non-Reactive Result Comment: The RPR test is a non- treponemal assay useful as an aid in the diagnosis of primary and secondary syphilis. It converts to positive generally within 2 weeks after the appearance of a lesion. This test is also useful for monitoring response to antibiotic therapy. A positive RPR screening test will be followed by the FTA ABS test. False positive RPR tests may occur in 1) patients with underlying autoimmune disorders, 2) elderly patients, 3) , and 4) other conditions with abnormal serum globulins. Performed By: #### HIVRP #### [place] [address] #### RPR, HEPAC #### [place] [address] HEPAC Collected: 11/14/2017 Status: F Source: [facility] 1:56 [facility] REPOSITORY TYPE CODE TESTS RESULT OUT OF REFERENCE UNITS RANGE LAB HBSAG(LOINC Negative ) Hep B Negative Surf Ag LAB HBCM(LOINC) Negative Hep B Negative Core IgM Ab Result Comment: No serological evidence of ACUTE Hepatitis B infection. LAB HCV(LOINC) Negative Negative Hep C Ab LAB HCV1(LOINC) No serological evidence of Hep C Ab Hepatitis C Int infection, although levels of anti-HCV may be undetectable in early infection. LAB HAVM(LOINC) Negative Negative Hep A IgM Ab LAB HAVM1(LOINC) No serological evidence of a Hep A IgM current Hepatitis A Ab Int infection. Performed By: #### HIVRP #### [place] [id number] #### RPR, HEPAC #### [facility] [address] [place], [place] [address] URINALYSIS Collected: 11/13/2017 Status: F Source: [place] 12:49 PM [facility] REPOSITORY TYPE CODE TESTS RESULT OUT OF RANGE REFERENCE UNITS LAB UCOL Yellow Color Yellow LAB [facility] Clear Clarity Abnormal Cloudy Alert LAB UGLUC Negative mg/dL Glucose, Urine Negative LAB UBIL Negative Bilirubin, Urine Negative LAB UKET Negative Ketones, Urine Negative LAB USPG 1.005-1.030 Specific [place], Ur 1.023 LAB UHGB Negative Abnormal Hemoglobin/Blood, 3+ Alert Ur LAB UPH 4.5-8.0 pH 6.0 LAB UPROT Negative mg/dL Protein, Abnormal Urine 30 Alert LAB UUROB Normal Abnormal Urobilinogen Elevated Alert LAB UNITR Negative Nitrites Negative LAB ULKEST Negative Leukest Abnormal 3+ Alert LAB UCOM Comments SEE COMMENT Result Comment: Microscopic Examination Performed LAB UWBC 0-5 /HPF Abnormal WBC Alert 11-25 LAB URBC 0-3 /HPF Abnormal RBC Alert 6-10 LAB UEPI /HPF Epithelial Cells SEE COMMENT Result Comment: Few Squamous Epithelial Cells LAB UMCOM Urine SEE Ottoniel Comment COMMENT Result Comment: N/A LAB UCRYS 0 /HPF Abnormal Alert Crystals SEE COMMENT Result Comment: Few Calcium Oxalate Crystal Performed By: #### UA #### [facility] [address] [place], [place] [address] CBC Collected: 11/13/2017 Status: F Source: [place] 10:54 AM [facility] REPOSITORY TYPE CODE TESTS RESULT OUT OF REFERENCE UNITS RANGE LAB WBC 3.70-11.00 k/uL WBC 8.10 LAB RBC 3.90-5.20 m/uL RBC 5.05 LAB HGB 11.5-15.5 g/dL Hemoglobin 15.1 LAB HCT 36.0-46.0 % Hematocrit 45.3 LAB MCV 80.0-100.0 fL MCV 89.7 LAB MCH 26.0-34.0 pG MCH 29.9 LAB MCHC 30.5-36.0 g/dL MCHC 33.3 LAB RDWCV 11.5-15.0 % RDW-CV 13.3 LAB PLTCT 150-400 k/uL Platelet Count 257 LAB MPV 9.0-12.7 fL MPV 11.2 LAB ABSNUC <0.01 k/uL Absolute nRBC <0.01 Performed By: #### CBC, CMP, TSH, FT4, ALDREN, ACTH #### [facility] [address] [place], [place] [address] COMP METABOLIC PANEL Collected: 11/13/2017 Status: F Source: [place] 10:[address] [facility] REPOSITORY TYPE CODE TESTS RESULT OUT OF REFERENCE UNITS RANGE LAB TP 6.3-8.0 g/dL Protein, Total 7.5 LAB ALB 3.9-4.9 g/dL Albumin 4.9 LAB CA 8.5-10.2 mg/dL Calcium, Total 9.1 LAB TBIL 0.2-1.3 mg/dL Bilirubin, Total 0.5 LAB ALKP 32-117 U/L Alkaline Phosphatase 52 LAB AST 13-35 U/L AST 20 LAB GLU 74-99 mg/dL Glucose 93 Result Comment: The [place] Diabetes Association (ADA) provides guidance for cutoff values for fasting glucose and random glucose. The ADA defines fasting as no caloric intake for at least 8 hours. Fas ting plasma glucose results between 100 to 125 mg/dL indicate increased risk for diabetes (prediabetes). Fasting plasma glucose results greater than or equal to 126 mg/dL meet the criteria for diagnosis of diabetes. In the absence of unequivocal hyperglycemia, results should be confirmed by repeat testing. In a patient with classic symptoms of hyperglycemia or hyperglycemic crisis, random plasma glucose results greater than or equal to 200 mg/dL meet the criteria for diagnosis of diabetes. Reference: Standards of Medical Care in Diabetes 2016, [place] Diabetes Association. Diabetes Care. 2016.39(Suppl 1). LAB BUN 7-21 mg/dL BUN 7 LAB CRET 0.58-0.96 mg/dL Creatinine 0.74 LAB NA 136-144 mmol/L Sodium 141 LAB K 3.7-5.1 mmol/L Potassium Low 3.5 LAB CL 97-105 mmol/L Chloride 104 LAB CO2 22-30 mmol/L CO2 23 LAB AGAP 9-18 mmol/L Anion Gap 14 LAB ALT 7-38 U/L ALT 14 LAB GFRAA eGFR- Amer. >60 LAB GFRNAA . eGFR-All Other Races >60 Result Comment: eGFR (Estimated GFR) Units of measure: mL/min/1.73 meters squared eGFR is derived from the reexpressed MDRD Study equation using the following parameters: serum creatinine, age, gender and race. The creatinine assay has been calibrated to be traceable to IDMS. An eGFR <60 mL/min/1.73m2 for >3 months is consistent with chronic kidney disease. Refer to KDOQI guidelines for clinical interpretation. In patients with unstable renal function, e.g. those with acute kidney injury, the eGFR may not accurately reflect actual GFR. Performed By: #### CBC, CMP, TSH, FT4, ALDREN, ACTH #### [facility] [employer] [address] [place], [place] [address] TSH Collected: 11/13/2017 Status: F Source: [place] 10:54 AM [facility] REPOSITORY TYPE CODE TESTS RESULT OUT OF RANGE REFERENCE UNITS LAB TSH 0.400-5.500 uU/mL TSH 2.070 Result Comment: If the patient is , TSH reference range varies by gestational period: First Trimester 0.100-2.500 uU/mL Second Trimester 0.200-3.000 uU/mL Third Trimester 0.300-3.000 uU/mL References: 1. De Serafin L, Gretel M, Anton EK, et al. Management of Thyroid Dysfunction during and : An Endocrine Society Clinical Practice Guideline. J Clin Endocrinol Metab, 2012:97:7114-0322. 2. Jonathan ROSADO. Overview of thyroid disease in . UpToDate. 2016. Accessed on December 23, 2015. Performed By: #### CBC, CMP, TSH, FT4, ALDREN, ACTH #### [facility] [employer] [address] [place], [place] [address] FREE T4 Collected: 11/13/2017 Status: F Source: [place] 10:54 AM [facility] REPOSITORY TYPE CODE TESTS RESULT OUT OF RANGE REFERENCE UNITS LAB FT4 0.9-1.7 ng/dL Free T4 1.5 Performed By: #### CBC, CMP, TSH, FT4, ALDREN, ACTH #### [facility] [employer] [address] [place], [place] [address] JOANNA RENIN RATIO Collected: 11/13/2017 Status: F Source: [place] 10:54 AM [facility] REPOSITORY TYPE CODE TESTS RESULT OUT OF REFERENCE UNITS RANGE LAB JOANNA 3.1-35.4 ng/dL Aldosterone 8.7 Result Comment: Normal serum levels of aldosterone are dependent on the sodium intake and whether the patient is upright or supine. High sodium intake will tend to suppress serum aldosterone, whereas lo w sodium intake will elevate serum aldosterone. The reference interval for serum aldosterone are based on a normal sodium intake. Supine reference range <23.1 ng/dL LAB RENDI pg/mL Direct Renin 25.3 Result Comment: Renin Reference Range, 0-40 years: Upright: 4.2-52.2 pg/mL Supine: 3.2-33.2 pg/mL LAB ALREN <4 Joanna Renin Ratio 0 Result Comment: An increased Joanna/Renin ratio is suggestive, but not diagnostic of primary aldosteronism if aldosterone concentration is >15 ng/dL. Performed By: #### CBC, CMP, TSH, FT4, ALDREN, ACTH #### [facility] [employer] [address] [place] [id number] ACTH Collected: 11/13/2017 Status: F Source: [place] 10:54 AM [facility] REPOSITORY TYPE CODE TESTS RESULT OUT OF RANGE REFERENCE UNITS LAB ACTH <47 pg/mL ACTH 29 Performed By: #### CBC, CMP, TSH, FT4, ALDREN, ACTH #### [facility] [employer] [address] [place], [place] [address] CNOV Observed: 11/13/2017 Status: COMPLETED Source: [place] 10:10 AM [facility] REPOSITORY Office Visit (OSITOADMN) ANA LUISA STRICKLAND ([id number]) 1995 F Date Time Provider Department 11/13/17 10:10 AM LUAN MENDES During your visit today, we recorded the following information about you: Pulse Blood pressure 96/minute 154/101 Luan Mendes 11/13/2017 10:28 AM Signed Ana Luisa Strickland is a 22 year old female. Patient presents with: Establish Care Has had 6 events of syncope. She has had been to the ER and was started on keppra Never had seizures before. Has not had skipped seizures Is on keppra, valium and topamax Discussed the work up ordered Has cold chills and has challenge breathing/gasping for air. She does feel some racing heart No tongue bite but had emesis during the event when she awakened Sleeps 2-3 hours No incontinence She has NF1 She does interrupt me often during the apt and makes challenge to really do a proper HPI Seen Dr Meek and had her eyes checked Her male SO was on his cell phone the entire apt She is a single mother with a 3 yo. Lives with her son only. Her grandmother helps her OARRS reviewed Medications and Allergies Reviewed KP data reviewed if done THIS NOTE IS FOR AT FIRST FOR MY DOCUMENTATION TO PROVIDE CARE, HELP INSURANCE COMPANY AND COLLEAGUES TO HAVE NEUROLOGICAL CONTEXT OF MY , AND FOR MY PERSONAL RECORDING TO FACILITATE FUTURE CARE BY HAVING A WRITTEN DOCUMENT MEMORY OF OUR CONSULT TOGETHER . THANK YOU FOR UNDERSTANDING THIS OFFICE NOTE IS A PHYSICIAN BASED DOCUMENT FOR COMMUNICATION AND CARE. 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 naproxen sodium (ANAPROX) 220 mg tablet Take 220 mg by mouth daily at bedtime. medroxyPROGESTERone (DEPO-PROVERA) 150 mg/mL injection Inject 150 mg intramuscularly every 12 weeks. TOPIRAMATE (TOPAMAX ORAL) Take by mouth. 5/ pt unsure of dose Takes 2 x daily diazePAM (VALIUM) 5 mg tablet Take 5 mg by mouth every 8 hours as needed. folic acid 1 mg tablet Take 1 mg by mouth once daily. fluticasone (FLONASE) 50 mcg/actuation nasal spray Use 1 [place] in each nostril once daily. IBUPROFEN/DIPHENHYDRAMINE CIT (ADVIL PM ORAL) Take by mouth as needed. ofloxacin 0.3 % otic solution Use 5 Drops in the left ear twice daily. Ibuprofen 200 mg cap Take 1-3 capsules by mouth as needed. No current facility-administered medications on file prior to visit. Social History Marital status: Single Spouse name: Years of education: Number of children: Occupational History Occupation Employer Comment student, [employer]* Social History Main Topics Smoking status: Passive Smoke Exposure - Never Smoker Packs/day: 0.00 Years: 0.00 Smokeless tobacco: Never Used Comment: mom and dad smoke outside Alcohol use: No Drug use: No Sexual activity: Not Currently Partners with: Male Social History Narrative Lives with mom, mom's boyfriend, and 4 younger siblings. Not much contact with father. family history includes Asthma in her father and mother; Cancer in her father and mother; Diabetes in her father, maternal grandmother, and mother; Heart in her maternal grandmother and paternal grandmother; Hypertension in her father; Ischemic Heart Disease in her father and paternal grandmother; Neurofibromatosis in her brother, brother, maternal grandmother, mother, and sister. 11/13/17 1018 11/13/17 1019 11/13/17 1020 BP: 144/90 140/97 154/101 BP Position: Supine Standing Standing Pulse: 91 103 96 HEENT: Swati cephalic atraumatic No palpable masses Sclera is unremarkable Throat is clear and no erythema Neck is supple No thyromegaly or masses Awake and alert, orientated to person, place, and time Speech is clear: fluent, intelligible. No aphasic errors Comprehension is intact Able to participate in medical decision plan of care Cranial Nerve: Primary gaze is conjugate EOMI Visual Pedraza are full to confrontation Normal fundoscopic Equal grimace Palate is midline Tongue is midline Motor: Full power of arms and legs proximally and distally Normal tone of arms and legs throughout Left arm contracture from elbow locate neurofibroma No drift in limb testing of arms Coordination: No dysmetria in limb testing of arms (finger to nose to finger) No dysmetria in limb testing of legs (toe to finger) (heel to webber) CAREY normal for finger tapping and hand opening/closing CAREY normal for toe tapping Sensory: absent Romberg Gait Able to rise from chair without help No trunk ataxia Able to ambulate without help Reflexes: Symmetric in arms and legs 2/4 IMPRESSION/PLAN: NF1 New Onset Seizure Recurrent Syncope Tachycardia Increased BP/New Onset of HTN Optic Pathway NF lesion Blood testing for tachycardia Work up for Pheo Blood and urine testing for renal Tilt table MRI brain wwo EEG and Epilepsy Renal US No change in medications With her NF hx and her vitals we need careful evaluation for structural cause to the brain, endocrine neoplasm, and even neurofibroma compressing renal Patient verbalizes understanding and I have addressed concerns and questions at this vPatient verbalizes understanding and I have addressed concerns and questions at this visit . During our face to face clinical encounter we discussed my concerns neurologically in terms of diagnosis, impact on health and activities of living, and addressed questions. I tried to reassure the patient and also address questions. I explained to the patient to call if any questions, to review results, and I want to see them return for neurological follow up as needed and can do mychart as next steps of care coordination. 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 This office note has been dictated and may contain minor typographic errors that escaped review 2. The nursing staff and medical assistants are a major part of YOUR TREATMENT TEAM and will be handling your phone calls and inquiries, if any. Unless explicitly told otherwise at the time of your office visit, your study results and ensuing treatment plans will be discussed during your follow-up appointment. If you do not have a follow-up appointment and wish to discuss any issues directly with me, please feel free to obtain one. 3. It is my practice to not fill disability or any other insurance-related forms/documention. All of the office notes, study results, and other pertinent documentation generated as part of your evaluation will be available to you and to your Primary Care Physician (PCP). Use of this material to complete such forms will be at the discretion of your PCP/referring physician Luan Mendes 11/13/2017 10:18 AM Signed [facility] [employer] Please consider signing up for the [facility] secure computer connection called StudyRoom. StudyRoom is free, allows you access to a portion of your medical record, lets you request appointment or medication refills, email providers, obtain reocrds/office medical notes, e visits, and lets you see when you are due for health maintenance. We can contact you via e-mail and release medical results directly to you through StudyRoom as well. You can sign up for StudyRoom by: ? Requesting an activation code online at [email or web address] Head Upright Tilt Test Contact Us Appointments [phone] Toll Free Chat Online with a Heart AND Vascular Nurse Submit a Question Online Phone Directory Refer a Patient By Toll-Free Request an Appointment [facility] Same-day appointments Referring Physician Center More Appointment Options Share on emailShare on print What you need to know about the Tilt Table Test What is a tilt table test? The tilt table test (also called a passive head-up tilt test or head upright tilt test) records your blood pressure and heart rate on a xzwqeo-cg-vhbeju basis while the table is tilted in a head-up position at different levels. Why is this test recommended? The results of this test will help your doctor determine what may be causing your symptoms of light- headedness or fainting spells (also called syncope). The tilt table test results will help determine if other tests may be needed to help diagnose your condition. The test results also may be used to evaluate heart rhythm, blood pressure and sometimes other measurements with changes in position. Lastly, the test results will help your doctor plan a course of treatment. What are the risks of the test? As with any procedure, there are risks of the tilt test. Your health care provider will discuss the risks and benefits of the procedure with you before the test is ordered. What is syncope? Syncope (pronounced ?sin ko pea?) is the brief loss of consciousness and posture caused by a temporary decrease in blood flow to the brain. Syncope may be associated with a sudden fall in blood pressure, a decrease in heart rate or changes in blood volume or distribution. The person usually regains consciousness and becomes alert right away, but may experience a brief period of confusion. Syncope is often the result of an underlying medical condition that could be related to your heart, nervous system or blood flow to the brain. If necessary, the test will be modified to minimize any potential risks. One risk of the procedure during IV placement is bruising or swelling at the IV insertion site. These reactions are common. You may also experience pain or discomfort when the IV is inserted. Please talk to the lab staff if you are concerned about the IV insertion. Before the Test Scheduling the tilt test The scheduling alumni secretary will tell you when to report for your tilt test. If you are scheduling this test by phone, your appointment schedule will be mailed to you. How long will the test last? The test takes about 1 ? hours to complete. The test may be shorter, depending on your symptoms and the changes observed in blood pressure and heart rate. Plan on being at the hospital for about 2 for your appointment. Should I take my medications? Yes. You can take your prescription medications as you normally would, with water. However, do not take diuretics or laxatives before the test. If you have diabetes, please request a 10:30 am appointment time for your test so you may eat a light breakfast before 7 am and also complete the test in time for lunch. If you have questions or need help making adjustments to your medications, please call your referring physician. Do not discontinue any medication without first talking to your health care provider. Can I eat before the test? Eat a normal meal the evening before your procedure. DO NOT eat or drink anything except small amounts of water for 4 hours before the test. If you must take medications, please take them with small sips of water to help you swallow your pills. What should I wear? Wear comfortable clothes and shoes. You may wear a short-sleeved or sleeveless t-shirt in place of a hospital gown. If you are wearing a long-sleeved or tight-fitting shirt, you may be asked to remove it and change into a hospital gown for the test. You will be given a locker for your clothing. Please leave all jewelry (including wedding rings), watches and valuables at home. What should I bring? Please bring the following to your appointment: Recent medical history and physical exam report Medical records pertinent to your health condition (if available) List of current medications and dosages List of allergies (including medication, food and environmental allergies) Your insurance card Where do I go for my appointment? Your health care team will instruct you on where to go for your test. Where is the test performed? The test is performed in a special room called the Tilt Lab. What happens just before the test? A nurse will explain the procedure in detail, answer your questions and help you get ready for the test. Tilt table: You will lie on the tilt table, which is a motorized table with a metal footboard. Your feet will rest against the footboard. For your safety, soft Velcro straps will be placed across your body to secure you when the table is tilted during the test. Please note that you will always be tilted upright so your head is above your feet; you will never be tilted upside-down. IV placement: An IV (intravenous) line will be placed in a vein in your arm or on the back of your hand. The IV may be used to take blood samples for blood tests ordered by your doctor. A blood sample may be taken before and during the tilt test to measure a hormone called catecholamine (adrenaline). The blood sample will only be taken if indicated by your medical history. The IV also may be used to deliver medications during the test only if necessary to treat your symptoms, blood pressure or heart rate changes. Blood pressure cuffs will be placed around both arms. The blood pressure cuffs are attached to monitors so your blood pressure can be observed during the test. One cuff will pump automatically every minute, while the other cuff will be pumped by the nurse every 10 minutes. Electrodes: Small, sticky patches called electrodes will be placed on your chest. The electrodes are connected to an electrocardiograph monitor (EKG) that records the electrical activity of your heart as a graph or series of lines on a moving strip of paper. The EKG shows your heart rate and rhythm during the test. During the Test What happens during the test? First you will lie flat on your back. Your initial (baseline) blood pressure and EKG data will be recorded as you lie quietly before the test begins. After resting for 15 minutes, the test will be started. Your blood pressure and heart rate will be constantly monitored throughout the test. Your blood pressure is measured on a ambqoq-cx-wlkjsr basis, and your heart rate is displayed continuously on the monitor and recorded every minute. The data is recorded and stored in a computer. The motorized table is controlled by a nurse or electroencephalograph technician and will be tilted to different angles during the test. The table will be tilted at several angles in sequence (30 degrees for 2 minutes, then 45 degrees for 2 minutes, then 70 degrees for up to 45 minutes). You will always be tilted upright so your head is above your feet; you will never be tilted upside-down. When the table is titled at 30 and 45 degrees, you will feel as if you are lying on a steep hill. When it is tilted at 70 degrees, you will be in an upright position and your feet will be supported by the footboard at the end of the table. Qualified medical personnel will be present during the entire test. Limited Movement During the Test We ask that you try to stay as still and as quiet as possible during the test so the test results can be accurately recorded. Please do not move or exercise your legs while you are in the standing position. Please try not to talk unless you need to report your symptoms. We will try to make you as comfortable as possible during the test. How will I feel during the test? Throughout the test, the nurse or electroencephalograph technician will ask you how you feel. You may not have any symptoms, or you may experience pre-syncope symptoms (called premonitory symptoms), such as light-headedness, dizziness, nausea, palpitations (fluttering in the chest) or blurred vision. The purpose of the test is not to make you faint, although fainting may occur, depending on your individual response to the test. It is important to tell the staff how you are feeling throughout the test. Your symptoms, along with the data obtained during the test, will help the doctor diagnose the cause of your condition. If you feel like you cannot continue the test because of the symptoms you are experiencing during the test or because of other symptoms such as arthritis, or back, knee or foot pain, please tell the staff. Occasionally the test will be stopped if you really feel you cannot continue. If the staff?s assessment indicates it is safe for you to continue the test, you may be encouraged to continue the test so the most complete results can be obtained. After the Test What happens after the test? After the test is finished, the table will be lowered to a flat position. You will be observed for 5 to 10 minutes as you lay flat, and as your blood pressure and EKG are measured. You will stay in the lab area an additional 15 to 20 minutes after completing the test, or until all of the symptoms you may have experienced during the test have resolved. The IV will be removed after your last test of the day. Bruising or swelling at the IV site are common reactions, but talk to the lab staff if you are concerned. Going home after the test You are usually able to go home after the test. For your safety a responsible adult should drive you home after the test. What the test results mean Before you go home, the doctor in the [facility] will discuss the test results with you and your family member. If you have any questions at this time, please feel free to ask. A positive tilt table test means that a patient may have a condition that causes an abnormal change in blood pressure or heart rate. A negative tilt table test means that the patient did not show signs of a condition that causes an abnormal change in blood pressure or heart rate. In either case, additional tests may be needed to diagnose the patient?s condition. Other tests may be needed Depending on the results of the tilt table test, other tests may be needed, such as: An Isoproterenol supine test to evaluate your symptoms and how your blood pressure and heart rate respond to adrenaline-like stress. The stress is induced by a medication called isoproterenol that is injected into the IV. A blood volume test to evaluate if the amount of blood in your body is appropriate for your height and weight. A hemodynamic test to evaluate the intravascular pressure and blood flow that occur when the heart muscle pumps blood throughout the body. An autonomic reflex test to evaluate the function of the autonomic nervous system. Other tests: Sometimes other tests are recommended, such as a vestibular function test, heart rate monitoring, echo or other tests. Consultations with other health career and transition teacher may also be needed. If any of these tests or appointments are needed, they will be explained and scheduled. Follow-up care Your referring doctor will receive a letter that explains the test results. You will also receive a copy of the letter. Your doctor will discuss the test results with you and discuss any necessary changes in your treatment. You may receive follow-up care from your primary care physician or referring physician. Your medications may be changed or you may start to take new medications. You may be referred to other doctors or services to treat your condition. Reviewed: 03/18 This information is about testing and procedures and may include instructions specific to [facility]. Please consult your physician for information pertaining to your testing POTS MANUAL TO HELP YOU Also for more POTS and autonomic education go to the [email or web address] and Spotlight. Under P tab of the library see and click the POTS tab for the POTS patient manual to read and print . [email or web address] Postural Tachycardia Syndrome Information Page Synonym(s): Chronic Orthostatic Intolerance, Postural Orthostatic Tachycardia Syndrome Table of Contents (click to jump to sections) What is Postural Tachycardia Syndrome? Is there any treatment? What is the prognosis? What research is being done? Clinical Trials Organizations What is Postural Tachycardia Syndrome? Postural orthostatic tachycardia syndrome (POTS) is one of a group of disorders that have orthostatic intolerance (OI) as their primary symptom. OI describes a condition in which an excessively reduced volume of blood returns to the heart after an individual stands up from a lying down position. The primary symptom of OI is lightheadedness or fainting. In POTS, the lightheadedness or fainting is also accompanied by a rapid increase in heartbeat of more than 30 beats per minute, or a heart rate that exceeds 120 beats per minute, within 10 minutes of rising. The faintness or lightheadedness of POTS are relieved by lying down again. Anyone at any age can develop POTS, but the majority of individuals affected (between 75 and 80 percent) are women between the ages of 15 to 50 years of age. Some women report an increase in episodes of POTS right before their menstrual periods. POTS often begins after a , major surgery, trauma, or a viral illness. It may make individuals unable to exercise because the activity brings on fainting spells or dizziness. Doctors aren't sure yet what causes the reduced return of blood to the heart that occurs in OI, or why the heart begins to beat so rapidly in POTS. Current thinking is that there are a number of mechanisms. Some patients have peripheral denervation (neuropathic POTS); some have symptoms that are due to sustained or parosyxmal overactivity of the sympathetic nervous system (hyperadrenergic POTS); and some individuals have PTOS dominated by features of deconditioning. Is there any treatment? Therapies for POTS are targeted at relieving low blood volume or regulating circulatory problems that could be causing the disorder. No single treatment has been found to be effect for all. A number of drugs seem to be effective in the short term. Whether they help in prison is uncertain. Simple interventions such as adding extra salt to the diet and attention to adequate fluid intake are often effective. The drugs fludrocortisone (for those on a high salt diet) and midodrine in low doses are often used to increase blood volume and narrow blood vessels. Drinking 16 ounces of water (2 glassfuls) before getting up can also help raise blood pressure. Some individuals are helped by beta receptor blocking agents. There is some evidence that an exercise program can gradually improve orthostatic tolerance. What is the prognosis? POTS may follow a relapsing-remitting course, in which symptoms come and go, for years. In most cases (approximately 80 percent), an individual with POTS improves and becomes functional, although some residual symptoms are common. What research is being done? The National [place] of Neurological Disorders and Stroke (NINDS) and other Institutes of the National Institutes of Health (NIH) conduct research related to POTS in their laboratories at the NIH and support additional research through grants to major research institutions across the country. Much of this research focuses on finding better ways to prevent, treat, and ultimately cure disorders such as POTS. [facility] Patient Recruitment for Postural Tachycardia Syndrome Clinical Trials At [facility] Clinical Center Throughout the [place] and Worldwide NINDS Clinical Trials Organizations Column1 Column2 National Dysaut[employer] [address] [place] [address] [email or web address] Dysautonomia [facility] 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 If Pt. has a central line or IVAD, may access for administration according to line specific nursing protocol.Once exam is complete flush line and de- access according to line specific nursing protocol in the MR contrast administration guidelines linkDisp: 1 EachRfl: 0 COMP METABOLIC PANEL [SQCMP] Order #: [id number] FUTURE CBC [SQCBC] Order #: [id number] FUTURE TSH BLD [SQTSH] Order #: [id number] FUTURE NEURO CARDIO AUTONOMIC REFLEX W/WO TILT [8428400] Order #: [id number] T4 FREE/FREE THYROX [SQFT4] Order #: [id number] FUTURE METANEPHRINES 24H UR [SQUMETAN] Order #: [id number] FUTURE VMA 24 HR URINE [SQUVMA2] Order #: [id number] FUTURE US KIDNEY/BLADDER [0556123] Order #: [id number] FUTURE ALDOSTERONE/RENIN ACT RATIO [SQALDREN] Order #: [id number] FUTURE ACTH BLD [SQACTH] Order #: [id number] FUTURE UA CHEMSTRIP ONLY [SQUA] Order #: [id number] FUTURE Prescriptions as of 11/13/2017 Sig: LEVETIRACETAM 500 MG TABLET Take 750 mg by mouth twice da* TRIAMCINOLONE ACETONIDE NASAL Use in the nose once daily. NAPROXEN SODIUM 220 MG TABLET Take 220 mg by mouth daily at* MEDROXYPROGESTERONE 150 MG/ML* Inject 150 mg intramuscularly* TOPAMAX ORAL Take by mouth. 11/29 pt unsur* DIAZEPAM 5 MG TABLET Take 5 mg by mouth every 8 ho* FOLIC ACID 1 MG TABLET Take 1 mg by mouth once daily. FLUTICASONE 50 MCG/ACTUATION * Use 1 [place] in each nostril o* ADVIL PM ORAL Take by mouth as needed. OFLOXACIN 0.3 % EAR DROPS Use 5 Drops in the left ear t* IBUPROFEN 200 MG CAPSULE Take 1-3 capsules by mouth as* IV CONTRAST (RADIOLOGY PROCED* MRI Brain Inject, intravenous* Problem List As Of Date 11/13/2017 Noted Resolved Dislocation of Elbow [832] INVALID FOR*02/21/2010 IDIOPATHIC SCOLIOSIS [M41.20] INVALID FOR* NEUROFIBROM,TYPE I,VON RECKLING [Q85.01] INVALID FOR* 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 Learning disability [F81.9] More... Adjustment disorder [F43.20] More... 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 StudyRoom is free, allows you access to a portion of your medical record, lets you request appointment or medication refills, email providers, obtain reocrds/office medical notes, e visits, and lets you see when you are due for health maintenance. We can contact you via e-mail and release medical results directly to you through StudyRoom as well. You can sign up for StudyRoom by: ? Requesting an activation code online at [email or web address] Head Upright Tilt Test Contact Us Appointments [phone] Toll Free Chat Online with a Heart AND Vascular Nurse Submit a Question Online Phone Directory Refer a Patient By Toll-Free Request an Appointment International Patient Services Same-day appointments Referring Physician Center More Appointment Options Share on emailShare on print What you need to know about the Tilt Table Test What is a tilt table test? The tilt table test (also called a passive head-up tilt test or head upright tilt test) records your blood pressure and heart rate on a axqmls-ve-iyjoye basis while the table is tilted in a head-up position at different levels. Why is this test recommended? The results of this test will help your doctor determine what may be causing your symptoms of light- headedness or fainting spells (also called syncope). The tilt table test results will help determine if other tests may be needed to help diagnose your condition. The test results also may be used to evaluate heart rhythm, blood pressure and sometimes other measurements with changes in position. Lastly, the test results will help your doctor plan a course of treatment. What are the risks of the test? As with any procedure, there are risks of the tilt test. Your health care provider will discuss the risks and benefits of the procedure with you before the test is ordered. What is syncope? Syncope (pronounced ?sin ko pea?) is the brief loss of consciousness and posture caused by a temporary decrease in blood flow to the brain. Syncope may be associated with a sudden fall in blood pressure, a decrease in heart rate or changes in blood volume or distribution. The person usually regains consciousness and becomes alert right away, but may experience a brief period of confusion. Syncope is often the result of an underlying medical condition that could be related to your heart, nervous system or blood flow to the brain. If necessary, the test will be modified to minimize any potential risks. One risk of the procedure during IV placement is bruising or swelling at the IV insertion site. These reactions are common. You may also experience pain or discomfort when the IV is inserted. Please talk to the lab staff if you are concerned about the IV insertion. Before the Test Scheduling the tilt test The scheduling alumni secretary will tell you when to report for your tilt test. If you are scheduling this test by phone, your appointment schedule will be mailed to you. How long will the test last? The test takes about 1 ? hours to complete. The test may be shorter, depending on your symptoms and the changes observed in blood pressure and heart rate. Plan on being at the hospital for about 2 for your appointment. Should I take my medications? Yes. You can take your prescription medications as you normally would, with water. However, do not take diuretics or laxatives before the test. If you have diabetes, please request a 10:30 am appointment time for your test so you may eat a light breakfast before 7 am and also complete the test in time for lunch. If you have questions or need help making adjustments to your medications, please call your referring physician. Do not discontinue any medication without first talking to your health care provider. Can I eat before the test? Eat a normal meal the evening before your procedure. DO NOT eat or drink anything except small amounts of water for 4 hours before the test. If you must take medications, please take them with small sips of water to help you swallow your pills. What should I wear? Wear comfortable clothes and shoes. You may wear a short- sleeved or sleeveless t-shirt in place of a hospital gown. If you are wearing a long-sleeved or tight-fitting shirt, you may be asked to remove it and change into a hospital gown for the test. You will be given a locker for your clothing. Please leave all jewelry (including wedding rings), watches and valuables at home. What should I bring? Please bring the following to your appointment: Recent medical history and physical exam report Medical records pertinent to your health condition (if available) List of current medications and dosages List of allergies (including medication, food and environmental allergies) Your insurance card Where do I go for my appointment? Your health care team will instruct you on where to go for your test. Where is the test performed? The test is performed in a special room called the Tilt Lab. What happens just before the test? A nurse will explain the procedure in detail, answer your questions and help you get ready for the test. Tilt table: You will lie on the tilt table, which is a motorized table with a metal footboard. Your feet will rest against the footboard. For your safety, soft Velcro straps will be placed across your body to secure you when the table is tilted during the test. Please note that you will always be tilted upright so your head is above your feet; you will never be tilted upside-down. IV placement: An IV (intravenous) line will be placed in a vein in your arm or on the back of your hand. The IV may be used to take blood samples for blood tests ordered by your doctor. A blood sample may be taken before and during the tilt test to measure a hormone called catecholamine (adrenaline). The blood sample will only be taken if indicated by your medical history. The IV also may be used to deliver medications during the test only if necessary to treat your symptoms, blood pressure or heart rate changes. Blood pressure cuffs will be placed around both arms. The blood pressure cuffs are attached to monitors so your blood pressure can be observed during the test. One cuff will pump automatically every minute, while the other cuff will be pumped by the nurse every 10 minutes. Electrodes: Small, sticky patches called electrodes will be placed on your chest. The electrodes are connected to an electrocardiograph monitor (EKG) that records the electrical activity of your heart as a graph or series of lines on a moving strip of paper. The EKG shows your heart rate and rhythm during the test. During the Test What happens during the test? First you will lie flat on your back. Your initial (baseline) blood pressure and EKG data will be recorded as you lie quietly before the test begins. After resting for 15 minutes, the test will be started. Your blood pressure and heart rate will be constantly monitored throughout the test. Your blood pressure is measured on a hurwbm-ot-hpgdsa basis, and your heart rate is displayed continuously on the monitor and recorded every minute. The data is recorded and stored in a computer. The motorized table is controlled by a nurse or electroencephalograph technician and will be tilted to different angles during the test. The table will be tilted at several angles in sequence (30 degrees for 2 minutes, then 45 degrees for 2 minutes, then 70 degrees for up to 45 minutes). You will always be tilted upright so your head is above your feet; you will never be tilted upside-down. When the table is titled at 30 and 45 degrees, you will feel as if you are lying on a steep hill. When it is tilted at 70 degrees, you will be in an upright position and your feet will be supported by the footboard at the end of the table. Qualified medical personnel will be present during the entire test. Limited Movement During the Test We ask that you try to stay as still and as quiet as possible during the test so the test results can be accurately recorded. Please do not move or exercise your legs while you are in the standing position. Please try not to talk unless you need to report your symptoms. We will try to make you as comfortable as possible during the test. How will I feel during the test? Throughout the test, the nurse or electroencephalograph technician will ask you how you feel. You may not have any symptoms, or you may experience pre- syncope symptoms (called premonitory symptoms), such as light-headedness, dizziness, nausea, palpitations (fluttering in the chest) or blurred vision. The purpose of the test is not to make you faint, although fainting may occur, depending on your individual response to the test. It is important to tell the staff how you are feeling throughout the test. Your symptoms, along with the data obtained during the test, will help the doctor diagnose the cause of your condition. If you feel like you cannot continue the test because of the symptoms you are experiencing during the test or because of other symptoms such as arthritis, or back, knee or foot pain, please tell the staff. Occasionally the test will be stopped if you really feel you cannot continue. If the staff?s assessment indicates it is safe for you to continue the test, you may be encouraged to continue the test so the most complete results can be obtained. After the Test What happens after the test? After the test is finished, the table will be lowered to a flat position. You will be observed for 5 to 10 minutes as you lay flat, and as your blood pressure and EKG are measured. You will stay in the lab area an additional 15 to 20 minutes after completing the test, or until all of the symptoms you may have experienced during the test have resolved. The IV will be removed after your last test of the day. Bruising or swelling at the IV site are common reactions, but talk to the lab staff if you are concerned. Going home after the test You are usually able to go home after the test. For your safety a responsible adult should drive you home after the test. What the test results mean Before you go home, the doctor in the [facility] will discuss the test results with you and your family member. If you have any questions at this time, please feel free to ask. A positive tilt table test means that a patient may have a condition that causes an abnormal change in blood pressure or heart rate. A negative tilt table test means that the patient did not show signs of a condition that causes an abnormal change in blood pressure or heart rate. In either case, additional tests may be needed to diagnose the patient?s condition. Other tests may be needed Depending on the results of the tilt table test, other tests may be needed, such as: An Isoproterenol supine test to evaluate your symptoms and how your blood pressure and heart rate respond to adrenaline-like stress. The stress is induced by a medication called isoproterenol that is injected into the IV. A blood volume test to evaluate if the amount of blood in your body is appropriate for your height and weight. A hemodynamic test to evaluate the intravascular pressure and blood flow that occur when the heart muscle pumps blood throughout the body. An autonomic reflex test to evaluate the function of the autonomic nervous system. Other tests: Sometimes other tests are recommended, such as a vestibular function test, heart rate monitoring, echo or other tests. Consultations with other health career and transition teacher may also be needed. If any of these tests or appointments are needed, they will be explained and scheduled. Follow-up care Your referring doctor will receive a letter that explains the test results. You will also receive a copy of the letter. Your doctor will discuss the test results with you and discuss any necessary changes in your treatment. You may receive follow-up care from your primary care physician or referring physician. Your medications may be changed or you may start to take new medications. You may be referred to other doctors or services to treat your condition. Reviewed: 03/18 This information is about testing and procedures and may include instructions specific to [facility]. Please consult your physician for information pertaining to your testing POTS MANUAL TO HELP YOU Also for more POTS and autonomic education go to the [email or web address] and Spotlight. Under P tab of the library see and click the POTS tab for the POTS patient manual to read and print . [email or web address] rdia-[email or web address] NIN Postural Tachycardia Syndrome Information Page Synonym(s): Chronic Orthostatic Intolerance, Postural Orthostatic Tachycardia Syndrome Table of Contents (click to jump to sections) What is Postural Tachycardia Syndrome? Is there any treatment? What is the prognosis? What research is being done? Clinical Trials Organizations What is Postural Tachycardia Syndrome? Postural orthostatic tachycardia syndrome (POTS) is one of a group of disorders that have orthostatic intolerance (OI) as their primary symptom. OI describes a condition in which an excessively reduced volume of blood returns to the heart after an individual stands up from a lying down position. The primary symptom of OI is lightheadedness or fainting. In POTS, the lightheadedness or fainting is also accompanied by a rapid increase in heartbeat of more than 30 beats per minute, or a heart rate that exceeds 120 beats per minute, within 10 minutes of rising. The faintness or lightheadedness of POTS are relieved by lying down again. Anyone at any age can develop POTS, but the majority of individuals affected (between 75 and 80 percent) are women between the ages of 15 to 50 years of age. Some women report an increase in episodes of POTS right before their menstrual periods. POTS often begins after a , major surgery, trauma, or a viral illness. It may make individuals unable to exercise because the activity brings on fainting spells or dizziness. Doctors aren't sure yet what causes the reduced return of blood to the heart that occurs in OI, or why the heart begins to beat so rapidly in POTS. Current thinking is that there are a number of mechanisms. Some patients have peripheral denervation (neuropathic POTS); some have symptoms that are due to sustained or parosyxmal overactivity of the sympathetic nervous system (hyperadrenergic POTS); and some individuals have PTOS dominated by features of deconditioning. Is there any treatment? Therapies for POTS are targeted at relieving low blood volume or regulating circulatory problems that could be causing the disorder. No single treatment has been found to be effect for all. A number of drugs seem to be effective in the short term. Whether they help in extermination inspector is uncertain. Simple interventions such as adding extra salt to the diet and attention to adequate fluid intake are often effective. The drugs fludrocortisone (for those on a high salt diet) and midodrine in low doses are often used to increase blood volume and narrow blood vessels. Drinking 16 ounces of water (2 glassfuls) before getting up can also help raise blood pressure. Some individuals are helped by beta receptor blocking agents. There is some evidence that an exercise program can gradually improve orthostatic tolerance. What is the prognosis? POTS may follow a relapsing-remitting course, in which symptoms come and go, for years. In most cases (approximately 80 percent), an individual with POTS improves and becomes functional, although some residual symptoms are common. What research is being done? The National [place] of Neurological Disorders and Stroke (NINDS) and other Institutes of the National Institutes of Health (NIH) conduct research related to POTS in their laboratories at the [facility] and support additional research through grants to major research institutions across the country. Much of this research focuses on finding better ways to prevent, treat, and ultimately cure disorders such as POTS. [facility] Patient Recruitment for Postural Tachycardia Syndrome Clinical Trials At [facility] Clinical Center Throughout the [place] and Worldwide NINDS Clinical Trials Organizations Column1 Column2 National Dysaut[employer] [address] [place] [address] [email or web address] [employer] [address] [place] [address] [email or web address] Fax: [phone] Prescriptions ordered this encounter Disp Refills Start End IV CONTRAST (RADIOLOGY PROCEDURE) 1 Ea* 0 11/13/2017 Class: In Office Sig: MRI Brain Inject, intravenously, once for 1 dose.No IV access, insert saline lock prior to beginning of sedation, infusion, injection of imaging exam.Discontinue saline lock post exam. If Pt. has a central line or IVAD, may access for administration according to line specific nursing protocol.Once exam is complete flush line and de-access according to line specific nursing protocol in the MR contrast administration guidelines link Encounter Status:Closed by LUAN MENDES DO on 11/13/17 PROGRESS Observed: 11/13/2017 Status: COMPLETED Source: [place] [address]:[address] [facility] [place] REPOSITORY HNO ID: [id number] Author: Luan Mendes Service: (none) Author Type: Physician Type: Progress Notes Filed: 11/13/2017 10:28 AM Note Text: Ana Luisa Strickland is a 22 year old female. Patient presents with: Establish Care Has had 6 events of syncope. She has had been to the ER and was started on keppra Never had seizures before. Has not had skipped seizures Is on keppra, valium and topamax Discussed the work up ordered Has cold chills and has challenge breathing/gasping for air. She does feel some racing heart No tongue bite but had emesis during the event when she awakened Sleeps 2-3 hours No incontinence She has NF1 She does interrupt me often during the apt and makes challenge to really do a proper HPI Seen Dr Meek and had her eyes checked Her male SO was on his cell phone the entire apt She is a single mother with a 3 yo. Lives with her son only. Her grandmother helps her OARRS reviewed Medications and Allergies Reviewed data reviewed if done THIS NOTE IS FOR AT FIRST FOR MY DOCUMENTATION TO PROVIDE CARE, HELP INSURANCE COMPANY AND COLLEAGUES TO HAVE NEUROLOGICAL CONTEXT OF MY , AND FOR MY PERSONAL RECORDING TO FACILITATE FUTURE CARE BY HAVING A WRITTEN DOCUMENT MEMORY OF OUR CONSULT TOGETHER . THANK YOU FOR UNDERSTANDING THIS OFFICE NOTE IS A PHYSICIAN BASED DOCUMENT FOR COMMUNICATION AND CARE. 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 naproxen sodium (ANAPROX) 220 mg tablet Take 220 mg by mouth daily at bedtime. medroxyPROGESTERone (DEPO-PROVERA) 150 mg/mL injection Inject 150 mg intramuscularly every 12 weeks. TOPIRAMATE (TOPAMAX ORAL) Take by mouth. 5/25 pt unsure of dose Takes 2 x daily diazePAM (VALIUM) 5 mg tablet Take 5 mg by mouth every 8 hours as needed. folic acid 1 mg tablet Take 1 mg by mouth once daily. fluticasone (FLONASE) 50 mcg/actuation nasal spray Use 1 [place] in each nostril once daily. IBUPROFEN/DIPHENHYDRAMINE CIT (ADVIL PM ORAL) Take by mouth as needed. ofloxacin 0.3 % otic solution Use 5 Drops in the left ear twice daily. Ibuprofen 200 mg cap Take 1-3 capsules by mouth as needed. No current facility-administered medications on file prior to visit. Social History Marital status: Single Spouse name: Years of education: Number of children: Occupational History Occupation Employer Comment student, [employer]* Social History Main Topics Smoking status: Passive Smoke Exposure - Never Smoker Packs/day: 0.00 Years: 0.00 Smokeless tobacco: Never Used Comment: mom and dad smoke outside Alcohol use: No Drug use: No Sexual activity: Not Currently Partners with: Male Social History Narrative Lives with mom, mom's boyfriend, and 4 younger siblings. Not much contact with father. family history includes Asthma in her father and mother; Cancer in her father and mother; Diabetes in her father, maternal grandmother, and mother; Heart in her maternal grandmother and paternal grandmother; Hypertension in her father; Ischemic Heart Disease in her father and paternal grandmother; Neurofibromatosis in her brother, brother, maternal grandmother, mother, and sister. 11/13/17 1018 11/13/17 1019 11/13/17 1020 BP: 144/90 140/97 154/101 BP Position: Supine Standing Standing Pulse: 91 103 96 HEENT: Swati cephalic atraumatic No palpable masses Sclera is unremarkable Throat is clear and no erythema Neck is supple No thyromegaly or masses Awake and alert, orientated to person, place, and time Speech is clear: fluent, intelligible. No aphasic errors Comprehension is intact Able to participate in medical decision plan of care Cranial Nerve: Primary gaze is conjugate EOMI Visual Pedraza are full to confrontation Normal fundoscopic Equal grimace Palate is midline Tongue is midline Motor: Full power of arms and legs proximally and distally Normal tone of arms and legs throughout Left arm contracture from elbow locate neurofibroma No drift in limb testing of arms Coordination: No dysmetria in limb testing of arms (finger to nose to finger) No dysmetria in limb testing of legs (toe to finger) (heel to webber) CAREY normal for finger tapping and hand opening/closing CAREY normal for toe tapping Sensory: absent Romberg Gait Able to rise from chair without help No trunk ataxia Able to ambulate without help Reflexes: Symmetric in arms and legs 2/4 IMPRESSION/PLAN: NF1 New Onset Seizure Recurrent Syncope Tachycardia Increased BP/New Onset of HTN Optic Pathway NF lesion Blood testing for tachycardia Work up for Pheo Blood and urine testing for renal Tilt table MRI brain wwo EEG and Epilepsy Renal US No change in medications With her NF hx and her vitals we need careful evaluation for structural cause to the brain, endocrine neoplasm, and even neurofibroma compressing renal Patient verbalizes understanding and I have addressed concerns and questions at this vPatient verbalizes understanding and I have addressed concerns and questions at this visit . During our face to face clinical encounter we discussed my concerns neurologically in terms of diagnosis, impact on health and activities of living, and addressed questions. I tried to reassure the patient and also address questions. I explained to the patient to call if any questions, to review results, and I want to see them return for neurological follow up as needed and can do mychart as next steps of care coordination. 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 This office note has been dictated and may contain minor typographic errors that escaped review 2. The nursing staff and medical assistants are a major part of YOUR TREATMENT TEAM and will be handling your phone calls and inquiries, if any. Unless explicitly told otherwise at the time of your office visit, your study results and ensuing treatment plans will be discussed during your follow-up appointment. If you do not have a follow-up appointment and wish to discuss any issues directly with me, please feel free to obtain one. 3. It is my practice to not fill disability or any other insurance-related forms/documention. All of the office notes, study results, and other pertinent documentation generated as part of your evaluation will be available to you and to your Primary Care Physician (PCP). Use of this material to complete such forms will be at the discretion of your PCP/referring physician CNCO Observed: 11/13/2017 Status: COMPLETED Source: [place] 12:[address] [facility] REPOSITORY Letter Text November 13, 2017 Ana Luisa Strickland [address] [facility] [address] : 1995 The patient was seen today. She will need to have transportation to the Clinic to and from for her testing of the followin. EEG 2. Tilt table 3. Neurology Epilepsy Consult 4. Kidney ultrasound Sincerely, Luan Mendes D.O ELECTRONICALLY SIGNED November 13, 2017 Adult Neurology/ Board Certified Director of Autonomic Center Department of Neuro Muscular of the Neurological [place] Re[employer] Officer for Neurology [employer] Clinical Gas Collection System Operatorsewer hand Faculty Appointment [facility] of Medicine Faculty Appointment [facility] Clinical Gas Collection System Operator [facility] of Medicine / TAX ID: [id number] [address]/ [id number] [place] [address] Appt: [phone] EMERGENCY DEPARTMENT Observed: 11/10/2017 Status: F Source: [place] SUMMARY 2:52 AM [facility] REPOSITORY [facility] Medical Records Department [address] [place] [address] [place] [address] Emergency Department Summary 11/09/17 2336 MR#: [id number] Acct: [id number] Name: ANA LUISA STRICKLAND Rep #: [id number] : 1995 22 From: Bossman Parish MD PCP: Tomás Dickey MD Status: DEP ER - ER Visit Summary Date of Service: 11/09/17 Chief Complaint: Seizure History of Present Illness: The patient is a 22 F with history of neurofibromatosis and new diagnosis of seizures presents to the emergency department with recurrent seizure. Patient states that she was seen here about a month ago. At that time she did have a seizure. She had an evaluation which is unremarkable. The patient was started on Keppra 500 mg twice a day. She states that she feels like the medication is making her more fatigued. Over the past 3 days, she has had some urinary frequency and flank pain. She thinks that she is also had 5 seizures. She states that she knows when they are going to happen. She states that she starts to shake and she is aware of it. Her friend witnessed it. They do not think that she lost consciousness. However, few days ago she also fell when she was getting up off the toilet and struck her head. The patient is scheduled to see neurology at [facility] on . She does follow with Dr. Silvana Moore here in the area, but has been unable to get him to see him. The patient is also on Topamax and Valium. Physical Examination: Vital signs reviewed General: Well-nourished, well-developed Head: Normocephalic, atraumatic Eyes: Pupils equal and reactive, extraocular muscles intact Neck, supple, no lymphadenopathy Heart: Regular rate and rhythm Respiratory: No distress, clear bilaterally Abdomen: Soft, nontender, nondistended, no peritoneal signs Back: Nontender Extremities: Nontender, no edema, no cords Skin: Normal color no rash Neuro: Alert and oriented, no focal or lateralizing deficits Test Results: [] Emergency Department Course and Treatment: It was difficult to determine if the patient was actually having breakthrough seizures versus pseudoseizure. She had no real loss of consciousness. She states that she did strike her head when she got up from the toilet 3 days ago and has had headaches since. She also has a history of migraine. I did obtain a head CT which is unremarkable. I discussed the patient with Dr. Stock. At this time, we are going to increase her Keppra to 750 mg twice a day. He did state that if she was having such frequent seizures, he would expect that her CPK will be elevated. This was normal. Her labs are unremarkable. Her urine shows no infection. She is not . She has been having some intermittent abdominal cramping. I am unsure if this is related to her medication change. Her abdomen is benign on examination. The patient will have her Keppra increased. I will start her on Bentyl for her abdominal cramping. She has follow- up in place next week at the [facility] for neurology. I do for this patient can safely be discharged. She has had no further seizure activity here. She will be discharged home. Treatment Plan: [] Disposition: Discharge Impression: 1. Breakthrough seizure 2. Abdominal cramping This note was generated with [employer] dictation software. It may contain incorrect words, spelling, and punctuation that were not noted in review of the chart prior to signing ED Disposition - Plan for ED Patient: Chief Complaint: Seizure Instructions: ED Seizure Recurrent Prescriptions: Dicyclomine HCl [Bentyl] 20 mg PO TIDAC #20 cap Levetiracetam [Keppra] 750 mg PO BID #60 tab Referrals: Tomás Dickey MD [Primary Care Provider] - What to do if you have Problems For any increased pain, shortness of breath, bleeding, nausea or vomiting, chest pain, or any unexpected problems, contact your Primary Care Provider. Call [facility] ([phone]) or report to the closest Emergency Room. Call 911 if necessary. 11/10/17 0252 <Electronically signed by Bossman Parish MD> Date Bossman Parish MD Cosigner Signature (If Indicated): Date CC: Tomás Dickey MD ,URINE Collected: 11/10/2017 Status: F Source: [place] 12:30 AM [facility] REPOSITORY TYPE CODE TESTS RESULT OUT OF REFERENCE UNITS RANGE LAB L400.8000 Negative Normal HCGUQUAL Negative Result Comment: Very dilute urine specimens, as indicated by a low specific gravity, may not contain medical office representative levels of hCG. If is still suspected, a first morning urine specimen should be collected 48 hours later and tested. Performed By: #### L400.7600 #### [facility] [address] [facility] [place], [place], [id number] URINALYSIS, COMPLETE Collected: 11/10/2017 Status: F Source: [place] 12:30 AM [facility] REPOSITORY Order Comment: How was Urine Obtained? CLEAN CATCH TYPE CODE TESTS RESULT OUT OF REFERENCE UNITS RANGE LAB L400.3000 Yellow COLOR Normal Yellow LAB L400.3050 Clear CLARITY Normal Sl. Cloudy LAB L400.3200 Normal mg/dl GLUCOSE, UR Normal Normal LAB L400.3300 Negative mg/dL BILIRUBIN Normal URINE Negative LAB L400.3400 Negative mg/dl KETONE UR Normal Negative LAB L400.3465 1.002-1.030 SP.GR. Normal DIPSTX 1.010 LAB L400.3550 5.0 - 8.0 pH UR Normal 8.0 LAB L400.3600 Negative mg/dl PROT DIPSTX Normal Negative LAB L400.3700 Normal mg/dl UROBILI Normal Normal LAB L400.3750 Negative NITRITE UR Normal Negative LAB L400.3780 Negative /ul OCCULT High BLOOD-UR 150 LAB L400.3800 Negative /ul LEUK High ESTERASE 25 LAB L400.4050 0-5 /hpf WBC Normal 0-5 SEEN LAB L400.4100 0-5 /hpf RBC-UA Normal 0-5 SEEN LAB L400.4150 5-10 /hpf SQUAM EPI Normal 0-5 SEEN LAB L400.4300 None Seen /hpf BACTERIA Normal 0 SEEN LAB L400.4350 <or=2+ /hpf MUCUS, Normal URINE 0 SEEN LAB L400.4200 0-5 /hpf Normal TRANSITIONAL EP 0 SEEN LAB L400.4900 AMORPHOUS Normal 1+ Performed By: #### L400.0001 #### [facility] [address] [facility] [address] [place], [place], [id number] CBC W/DIFF, AUTOMATED Collected: 11/09/2017 Status: F Source: [place] 11:40 PM [facility] REPOSITORY TYPE CODE TESTS RESULT OUT OF RANGE REFERENCE UNITS LAB L100.1000 4.4-11.0 K/mm3 Normal WBC 9.2 LAB L100.1200 4.2-5.4 M/mm3 Normal RBC 4.64 LAB L100.1300 12.0-15.0 g/dl Normal HGB 13.7 LAB L100.1400 37-47 % Normal HCT 41.5 LAB L100.1500 81-99 fL Normal MCV 89.4 LAB L100.1600 27.0-32.0 pg Normal MCH 29.5 LAB L100.1700 32-36 g/gl Normal MCHC 33.0 LAB L100.1810 11.6-14.6 % Normal RDW CV 13.3 LAB L100.1820 35.1-43.9 fl Normal RDW SD 43.0 LAB L100.1900 150-450 K/mm3 Normal PLT 202 LAB L100.2000 6.2-12.0 fl Normal MPV 10.4 LAB L100.2100 47-70 % Normal NEUT% 59.3 LAB L100.2200 19-41 % Normal LY% 28.5 LAB L100.2300 0-10 % Normal MONO% 9.7 LAB L100.2400 0-5 % Normal EO% 1.9 LAB L100.2500 0-1 % Normal BASO% 0.3 LAB L100.2550 0.0-0.9 % Normal IM GRAN % 0.300 Result Comment: IG% - Immature Granulocytes (promyelocytes, myelocytes and metamyelocytes) > 1% indicates that a LEFT SHIFT is Present. LAB L100.2620 2.0-7.7 X10 3/uL Normal Absolute Neut 5.4 LAB L100.2720 0.83-4.51 X10 3/ul Normal Absolute Lymph 2.61 Performed By: #### L100.0100 #### [facility] [address] [place], [place], [address] COMPREHENSIVE METABOLIC Collected: 11/09/2017 Status: F Source: [place] [facility] 11:40 PM [facility] REPOSITORY TYPE CODE TESTS RESULT OUT OF RANGE REFERENCE UNITS LAB L501.0100 74-106 mg/dL Normal GLU 85 Result Comment: Please note revised GLUCOSE reference range effective 2017. LAB L501.1000 7-18 mg/dL Normal BUN 10 LAB L501.1100 0.55-1.02 mg/dL Normal CREAT,SERUM 0.71 Result Comment: The validity of the calculated GFR AND GFRAA in patients over 70 years has not been determined. Clinical correlation is essential. LAB L501.1110 >60 mL/min Normal EST GFR 110 Result Comment: Non- GFR Calc LAB L501.1115 >60 mL/min Normal EST GFR - AA 133 Result Comment: GFR Calc LAB L501.1255 ml/min Normal Estimated CRCL 89.27 LAB L501.1300 10-20 RATIO Normal BUN/CRE 14.1 LAB L501.1500 6.4-8. g/dL Normal 2 T PROT 7.2 LAB L501.1800 3.2-5. g/dL Normal 0 ALB 4.2 LAB L501.1950 2.2-4. g/dL Normal 2 GLOB 3.0 LAB L501.2000 0.9-2. RATIO Normal 4 A/G 1.4 LAB L501.2200 8.5-10 mg/dL Normal .1 CA 8.9 LAB L501.4100 15-37 U/L Low AST 14 LAB L501.4305 45-117 U/L Normal ALK P 56 LAB L501.4405 13-56 U/L Normal ALT 15 LAB L501.4600 0.20-1 mg/dL Normal .00 T BILI 0.30 LAB L501.5300 136-14 mmol/L Normal 5 NA 142 LAB L501.5600 3.5-5. mmol/L Normal 1 K 3.9 LAB L501.5900 98-107 mmol/L High CL 111 LAB L501.6100 21.0-3 mmol/L Normal 2.0 CO2 24.0 LAB L501.6200 5-15 Normal GAP 7 Performed By: #### L500.4050, L501.2450 #### [facility] [address] [place], [address] LIPASE Collected: 11/09/2017 Status: F Source: [place] 11:40 PM [facility] REPOSITORY TYPE CODE TESTS RESULT OUT OF RANGE REFERENCE UNITS LAB L501.2450 73-393 U/L Normal LIPASE 198 Performed By: #### L500.4050, L501.2450 #### [facility] [address] [place], [address] CPK TOTAL, CREATINE Collected: 11/09/2017 Status: F Source: [place] KINASE 11:40 PM [facility] REPOSITORY TYPE CODE TESTS RESULT OUT OF RANGE REFERENCE UNITS LAB L501.3620 26-192 U/L Normal CPK TOTAL 132 Performed By: #### L501.3620 #### [facility] [address] [place], [address] BRAIN/HEAD WITHOUT Observed: 11/09/2017 Status: F Source: [place] CONTRAST 11:35 PM [facility] REPOSITORY [facility] Imaging Services [address] [place] [address] Brain/Head without Contrast MR#: [id number] Acct: [id number] Name: ANA LUISA STRICKLAND Rep #: [id number] : 1995 F 22 From: Jessenia Tomlinson MD PCP: Tomás Dickey MD Status: REG ER Study: Brain/Head without Contrast Date of Exam: 11/10/17 Exam# [id number] Ordering Dr: Bossman Parish MD CT Head or Brain W/O Contrast INDICATION: SEIZURES FOR PAST 2 DAYS,HEADACHE,SHAKES,ELEVATED BP,SHIELDEDHX:SEIZURES,MIGRAINES COMPARISON: October 07, 2017 TECHNIQUE: Noncontrast axial CT examination of the brain. Radiation dose optimization applied. FINDINGS: The ventricular system is normal in size and symmetric. The cortical sulci, sylvian fissures, and basal cisterns are well seen. The melissa- white matter junction is distinct. There is no evidence of acute intracranial hemorrhage, mass effect, midline shift, or abnormal extra- axial collection. The calvarium is intact and the visualized paranasal sinuses and mastoid air cells are clear. CT/Brain/Head without Contrast IMPRESSION: No evidence of acute intracranial abnormality by noncontrast CT. In case of unexplained seizures, further evaluation with MRI may be helpful. at 0043 Reported and signed by: Jessenia Tomlinson MD Electronically Signed: Jessenia Tomlinson MD at 0:41 EDT Tel , Service support , CC: Bossman Parish MD; Tomás Dickey MD Director Of Campus Recreation: Signed CBC-COMPLETE BLOOD CNT Collected: 10/18/2017 Status: F Source: [place] NO DIFF 3:36 PM [facility] REPOSITORY TYPE CODE TESTS RESULT OUT OF RANGE REFERENCE UNITS LAB L100.1000 4.4-11.0 K/mm3 Normal WBC 7.7 LAB L100.1200 4.2-5.4 M/mm3 Normal RBC 4.88 LAB L100.1300 12.0-15.0 g/dl Normal HGB 14.7 LAB L100.1400 37-47 % Normal HCT 43.5 LAB L100.1500 81-99 fL Normal MCV 89.1 LAB L100.1600 27.0-32.0 pg Normal MCH 30.1 LAB L100.1700 32-36 g/gl Normal MCHC 33.8 LAB L100.1810 11.6-14.6 % Normal RDW CV 12.7 LAB L100.1820 35.1-43.9 fl Normal RDW SD 41.3 LAB L100.1900 150-450 K/mm3 Normal PLT 216 LAB L100.2000 6.2-12.0 fl Normal MPV 11.2 Performed By: #### L100.0500 #### [facility] [address] [place], [place], [address] HEMOGLOBIN A1C Collected: 10/18/2017 Status: F Source: [place] 3:36 PM [facility] REPOSITORY TYPE CODE TESTS RESULT OUT OF RANGE REFERENCE UNITS LAB L501.9985 4.2-6.3 % Normal HGB A1C 4.7 Performed By: #### L501.9985 #### [facility] [address] [place], [address] COMPREHENSIVE METABOLIC Collected: 10/18/2017 Status: F Source: [place] CARD 3:36 PM [facility] REPOSITORY TYPE CODE TESTS RESULT OUT OF RANGE REFERENCE UNITS LAB L501.0100 74-106 mg/dL Low GLU 72 Result Comment: Please note revised GLUCOSE reference range effective 2017. LAB L501.1000 7-18 mg/dL Normal BUN 7 LAB L501.1100 0.55-1.02 mg/dL Normal CREAT,SERUM 0.75 Result Comment: The validity of the calculated GFR AND GFRAA in patients over 70 years has not been determined. Clinical correlation is essential. LAB L501.1110 >60 mL/min Normal EST GFR 103 Result Comment: Non- GFR Calc LAB L501.1115 >60 mL/min Normal EST GFR - AA 125 Result Comment: GFR Calc LAB L501.1300 10-20 RATIO Low BUN/CRE 9.4 LAB L501.1500 6.4-8.2 g/dL Normal T PROT 7.7 LAB L501.1800 3.2-5.0 g/dL Normal ALB 4.3 LAB L501.1950 2.2-4.2 g/dL Normal GLOB 3.4 LAB L501.2000 0.9-2.4 RATIO Normal A/G 1.3 LAB L501.2200 8.5-10.1 mg/dL Normal CA 8.6 LAB L501.4100 15-37 U/L Normal AST 18 LAB L501.4305 45-117 U/L Normal ALK P 62 LAB L501.4405 13-56 U/L Normal ALT 16 LAB L501.4600 0.20-1.00 mg/dL Normal T BILI 0.60 LAB L501.5300 136-145 mmol/L Normal NA 143 LAB L501.5600 3.5-5.1 mmol/L Normal K 3.7 LAB L501.5900 98-107 mmol/L High CL 111 LAB L501.6100 21.0-32.0 mmol/L Normal CO2 26.0 LAB L501.6200 5-15 Normal GAP 6 Performed By: #### L500.4050, L501.9520 #### [facility] [address] [place], [address] THYROID STIM HORMONE Collected: 10/18/2017 Status: F Source: [place] (TSH) 3:36 PM [facility] REPOSITORY TYPE CODE TESTS RESULT OUT OF RANGE REFERENCE UNITS LAB L501.9520 0.358-3.74 uIU/mL Normal TSH 0.51 Performed By: #### L500.4050, L501.9520 #### [facility] [address] [place], [address] C-PEPTIDE Collected: 10/18/2017 Status: F Source: [place] 3:36 PM [facility] REPOSITORY TYPE CODE TESTS RESULT OUT OF RANGE REFERENCE UNITS LAB L3100.7750 1.1-4.4 ng/mL Normal C PEPTIDE 1.9 26956 Result Comment: C-Peptide reference interval is for fasting patients. Performed By: #### L3100.7750, L3310.0000 #### [facility] (refer to report for specific site) refer to report for address and phone number KEPPRA (LEVETIRACETAM) Collected: 10/18/2017 Status: F Source: [place] 3:36 PM [facility] REPOSITORY TYPE CODE TESTS RESULT OUT OF RANGE REFERENCE UNITS LAB L3310.0000 10.0-40.0 ug/mL Normal KEPPRA 17.6 Result Comment: Performed at: - [facility] [address] [id number] Neuro Intensivist Physician: Alphonso Haile PhD, Phone: [phone] Performed at: - [facility] [address] [id number] Neuro Intensivist Physician: Maged Malik MD, Phone: [phone] Performed By: #### L3100.7750, L3310.0000 #### [facility] (refer to report for specific site) refer to report for address and phone number EMERGENCY DEPARTMENT Observed: 10/07/2017 Status: F Source: [place] SUMMARY 5:30 PM [facility] REPOSITORY [facility] Medical Records Department [address] [place] [address] Emergency Department Summary 10/07/17 1523 MR#: [id number] Acct: [id number] Name: ANA LUISA STRICKLAND Rep #: [id number] : 1995 22 From: Jocelyn Palm MD PCP: TOMÁS DICKEY Status: DEP ER - ER Visit Summary Date of Service: 10/07/17 Chief Complaint: Possible seizure History of Present Illness: The patient is a 22 F with a history of neurofibromatosis. Patient reports that her friends came to her house 2 days ago and states that she was shaking all over and having a seizure. Patient had vomited and urinated on herself. She states they showered her off and left her at home alone with a 3-year-old. Patient states she had decreased energy the last 2 days and continues to feel nauseated. Complaint of pain to her left knee. Nursing staff reports she walks into the ER drinking iced coffee without difficulty. Physical Examination: Vital signs are unremarkable. Patient sitting upright in bed no acute distress. Head neck examination is unremarkable. Heart is regular rate and rhythm. Lung sounds are clear. Abdomen is soft nontender. Extremity examination does reveal medial left knee tenderness. There is no obvious effusion. She has normal range of motion. She has some abrasions noted to the extensor surface of the right elbow without bony tenderness. Neuro exam reveals normal strength and sensation throughout. Test Results: Left knee x-rays are unremarkable. CT head is normal. CBC was a hemoglobin is 16.1. Chemistry studies are significant for glucose of 56. Urinalysis is normal. Patency test negative. Tox screen is positive for benzos. Emergency Department Course and Treatment: Patient was given Zofran. She felt slightly shaky and with her blood sugar only being 56 she was given orange juice, cheese stick, and a sandwich. Patient states that she felt nauseated after eating that and was given a dose of Phenergan. Repeat BGT is 91. I spoke with Dr. Stock, as the patient does follow with Dr. Bryant. He asked that we patient on Keppra 500 mg twice daily. She is to follow-up in the office as an outpatient. Treatment Plan: [] Disposition: Discharge Impression: 1. Reported seizure 2. History of neurofibromatosis This note was generated with [employer] dictation software. It may contain incorrect words, spelling, and punctuation that were not noted in review of the chart prior to signing ED Disposition - Plan for ED Patient: Chief Complaint: General Illness Referrals: Tomás Dickey [Primary Care Provider] - What to do if you have Problems For any increased pain, shortness of breath, bleeding, nausea or vomiting, chest pain, or any unexpected problems, contact your Primary Care Provider. Call [facility] ([phone]) or report to the closest Emergency Room. Call 911 if necessary. 10/07/17 1730 <Electronically signed by Jocelyn Palm MD> Date Jocelyn Palm MD Cosigner Signature (If Indicated): Date CC: TOMÁS DICKEY DISCHARGE INSTRUCTION Observed: 10/07/2017 Status: F Source: [place] 3:27 PM [facility] REPOSITORY [facility] Medical Records Department [address] [place] [address] Discharge Instruction 10/07/17 1526 MR#: [id number] Acct: [id number] Name: ANA LUISA STRICKLAND Iron Rep #: [id number] : 1995 22 From: Jocelyn Palm MD PCP: TOMÁS DICKEY Status: REG ER ED Disposition - Plan for ED Patient: Disposition: Home or Assisted Living Chief Complaint: General Illness Instructions: ED Seizure New Onset Unk Cause Prescriptions: levETIRAcetam tablet [Keppra tablet] 500 mg PO BID #60 tablet Referrals: Wili Stock MD [STAFF PHYSICIAN] - As soon as possible What to do if you have Problems For any increased pain, shortness of breath, bleeding, nausea or vomiting, chest pain, or any unexpected problems, contact your Primary Care Provider. Call [facility] ([phone]) or report to the closest Emergency Room. Call 911 if necessary. 10/07/17 1527 <Electronically signed by Jocelyn Palm MD> Date Jocelyn Palm MD Cosigner Signature (If Indicated): Date CC: TOMÁS DICKEY BEDSIDE GLUCOSE Collected: 10/07/2017 Status: F Source: [place] 2:13 PM [facility] REPOSITORY TYPE CODE TESTS RESULT OUT OF RANGE REFERENCE UNITS LAB L501.080 70-110 mg/dL Normal BEDSIDE GLU 91 Result Comment: MANAGEMENT OF PATIENT CARE PER NURSING PROTOCOL Performed By: #### L501.080 #### [facility] Point of Care [address] [place] [address] URINE DRUG SCREEN Collected: 10/07/2017 Status: F Source: [place] (VISTA) 12:30 PM [facility] REPOSITORY Order Comment: Order Date: 10/07/17 Has pt arrived? Y TYPE CODE TESTS RESULT OUT OF RANGE REFERENCE UNITS LAB L505.0075 TO BE Normal CONFIRMED Result Comment: CONFIRMATORY TESTING FOR ALL POSITIVE URINE DRUG SCREEN RESULTS WILL ONLY BE SENT OUT UPON PHYSICIAN ORDER. VISTA Urine Drug Screen methods provide only preliminary analytical test results. A more specific alternate chemical method must be used in order to obtain a confirmed analytical result. Gas chromatography/mass spectrometery (GC/MS) is the preferred confirmatory method. Clinical consideration and professional judgement should be applied to any drug of abuse test result, particularly when preliminary positive results are used. URINE TCA TESTING MUST BE ORDERED SEPARATELY. USE TEST MNEMONIC: [facility] LAB L505.5005 VISTA UDS PH 7 Normal LAB L505.5015 <1000 ng/mL AMPHETAMINES Normal NEGATIVE LAB L505.5025 < 200 ng/mL BARBITIURATES Normal NEGATIVE LAB L505.5035 < 200 High ng/mL BENZODIAZIPINE POSITIVE LAB L505.5045 < 300 ng/mL COCAINE Normal NEGATIVE LAB L505.5055 < 500 ng/mL ECSTACY Normal NEGATIVE LAB L505.5065 < 300 ng/mL METHADONE Normal NEGATIVE LAB L505.5075 < 300 ng/mL OPIATES Normal NEGATIVE LAB L505.5085 < 25 ng/mL PCP Normal NEGATIVE LAB L505.5095 < 50 ng/mL THC Normal NEGATIVE Performed By: #### L505.5000 #### [facility] [address] [place], [address] URINALYSIS, COMPLETE Collected: 10/07/2017 Status: F Source: [place] 12:30 PM [facility] REPOSITORY Order Comment: Order Date: 10/07/17 Has pt arrived? Y How was Urine Obtained? CLEAN CATCH TYPE CODE TESTS RESULT OUT OF RANGE REFERENCE UNITS LAB L400.3000 Yellow COLOR Normal Yellow LAB L400.3050 Clear Normal CLARITY Sl. Cloudy LAB L400.3200 Normal mg/dl Normal GLUCOSE, UR Normal LAB L400.3300 Negative mg/dL Normal BILIRUBIN URINE Negative LAB L400.3400 Negative mg/dl Normal KETONE UR Negative LAB L400.3465 1.002-1.030 Normal SP.GR. DIPSTX 1.015 LAB L400.3550 5.0 - 8.0 pH UR Normal 8.0 LAB L400.3600 Negative mg/dl PROT Normal DIPSTX Negative LAB L400.3700 Normal mg/dl Normal UROBILI Normal LAB L400.3750 Negative Normal NITRITE UR Negative LAB L400.3780 Negative /ul High 25 OCCULT BLOOD-UR LAB L400.3800 Negative /ul High LEUK 25 ESTERASE LAB L400.4050 0-5 /hpf WBC Normal 0-5 SEEN LAB L400.4100 0-5 /hpf Normal RBC-UA 0-5 SEEN LAB L400.4150 5-10 /hpf SQUAM Normal EPI 0-5 SEEN LAB L400.4300 None Seen /hpf 1+ Normal BACTERIA LAB L400.4350 <or=2+ /hpf 0 Normal MUCUS, URINE SEEN LAB L400.4900 2+ Normal AMORPHOUS Performed By: #### L400.0001 #### [facility] [address] [facility] [place], [place], [address] CT/NG WCH BY PCR Collected: 10/07/2017 Status: F Source: [place] 12:30 PM [facility] REPOSITORY Order Comment: Order Date: 10/07/17 Has pt arrived? Y TYPE CODE TESTS RESULT OUT OF RANGE REFERENCE UNITS LAB L8200.2100 Negative Normal Chlam Negative Trac PCR LAB L8200.2200 Negative Normal NG by Negative PCR Performed By: #### L8200.2000 #### [facility] [address] [facility] [place], [place], [address] CBC W/DIFF, AUTOMATED Collected: 10/07/2017 Status: F Source: [place] 12:20 PM [facility] REPOSITORY TYPE CODE TESTS RESULT OUT OF RANGE REFERENCE UNITS LAB L100.1000 4.4-11.0 K/mm3 Normal WBC 9.4 LAB L100.1200 4.2-5.4 M/mm3 Normal RBC 5.33 LAB L100.1300 12.0-15.0 g/dl High HGB 16.1 LAB L100.1400 37-47 % Normal HCT 47.0 LAB L100.1500 81-99 fL Normal MCV 88.2 LAB L100.1600 27.0-32.0 pg Normal MCH 30.2 LAB L100.1700 32-36 g/gl Normal MCHC 34.3 LAB L100.1810 11.6-14.6 % Normal RDW CV 12.9 LAB L100.1820 35.1-43.9 fl Normal RDW SD 41.7 LAB L100.1900 150-450 K/mm3 Normal PLT 221 LAB L100.2000 6.2-12.0 fl Normal MPV 10.1 LAB L100.2100 47-70 % Normal NEUT% 63.0 LAB L100.2200 19-41 % Normal LY% 22.0 LAB L100.2300 0-10 % High MONO% 12.7 LAB L100.2400 0-5 % Normal EO% 1.3 LAB L100.2500 0-1 % Normal BASO% 0.5 LAB L100.2550 0.0-0.9 % Normal IM GRAN % 0.500 Result Comment: IG% - Immature Granulocytes (promyelocytes, myelocytes and metamyelocytes) > 1% indicates that a LEFT SHIFT is Present. LAB L100.2620 2.0-7.7 X10 3/uL Normal Absolute Neut 5.9 LAB L100.2720 0.83-4.51 X10 3/ul Normal Absolute Lymph 2.06 Performed By: #### L100.0100 #### [facility] [address] [place], [address] BASIC METABOLIC Collected: 10/07/2017 Status: F Source: [place] PROFILE (BMP) 12:20 PM [facility] REPOSITORY TYPE CODE TESTS RESULT OUT OF RANGE REFERENCE UNITS LAB L501.0100 74-106 mg/dL Low GLU 56 Result Comment: Please note revised GLUCOSE reference range effective 2017. LAB L501.1000 7-18 mg/dL Normal BUN 12 LAB L501.1100 0.55-1.02 mg/dL High CREAT,SERUM 1.04 Result Comment: The validity of the calculated GFR AND GFRAA in patients over 70 years has not been determined. Clinical correlation is essential. LAB L501.1110 >60 mL/min Normal EST GFR 70 Result Comment: Non- GFR Calc LAB L501.1115 >60 mL/min Normal EST GFR - AA 85 Result Comment: GFR Calc LAB L501.1255 ml/min Normal Estimated CRCL 67.11 LAB L501.1300 10-20 RATIO Normal BUN/CRE 11.5 LAB L501.2200 8.5-10 mg/dL Normal .1 CA 9.0 LAB L501.5300 136-14 mmol/L Normal 5 NA 140 LAB L501.5600 3.5-5. mmol/L Normal 1 K 3.7 LAB L501.5900 98-107 mmol/L High CL 108 LAB L501.6100 21.0-3 mmol/L Normal 2.0 CO2 24.0 LAB L501.6200 5-15 Normal GAP 8 Performed By: #### L500.2500 #### [facility] [address] [place], [address] ,SERUM,HCG QUALI. Collected: Status: C Source: [place] 10/07/2017 12:20 PM [facility] REPOSITORY TYPE CODE TESTS RESULT OUT OF REFERENCE UNITS RANGE LAB L700.6700 =>Qualitative mIU/mL Normal HCG Qual < 1 triggr LAB L700.7000 0-9 Nonpreg Negative Normal HCGSQUAL NEGATIVE Performed By: #### L700.6800 #### [facility] [address] [place], [address] KNEE 4 OR MORE Observed: 10/07/2017 Status: F Source: [place] VIEWS 12:02 PM [facility] REPOSITORY [facility] [address] [place] [address] Knee 4 or More Views MR#: [id number] Acct: [id number] Name: ANA LUISA STRICKLAND Rep #: [id number] : 1995 F 22 From: Hellen Oneill MD PCP: TOMÁS DICKEY Status: REG ER Study: Knee 4 or More Views Date of Exam: 10/07/17 Exam# [id number] Ordering Dr: Jocelyn Palm MD STUDY: X-RAY - LEFT KNEE REASON FOR EXAM: Female, 22 years old. H/o seizures 2 days prior and pain in left knee since seizure TECHNIQUE: 4 view(s) of the knee. COMPARISON: None. FINDINGS: Normal visualized distal femur. Normal visualized proximal tibia and fibula. Normal proximal tibiofibular articulation. Normal medial femorotibial compartment. Normal lateral femorotibial compartment. Normal patellofemoral articulation. The soft tissue structures are unremarkable. RAD/Knee 4 or More Views IMPRESSION: Normal x-ray examination of the knee. Electronically Signed: Hellen Oneill MD at 13:56 EDT Tel , Service support , CC: Jocelyn Palm MD; TOMÁS DICKEY Director Of Campus Recreation: Signed BRAIN/HEAD WITHOUT Observed: 10/07/2017 Status: F Source: [place] CONTRAST 11:58 AM [facility] REPOSITORY [facility] [address] [place] [address] Brain/Head without Contrast MR#: [id number] Acct: [id number] Name: DORIANANA LUISA Iron Rep #: [id number] : 1995 F 22 From: Hellen Oneill MD PCP: TOMÁS DICKEY Status: REG ER Study: Brain/Head without Contrast Date of Exam: 10/07/17 Exam# [id number] Ordering Dr: Jocelyn Palm MD STUDY: CT BRAIN WITHOUT CONTRAST REASON FOR EXAM: Female, 22 years old. DIZZY, LIGHTHEADED, ? SEIZURE RADIATION DOSAGE (If Supplied By Facility): CTDIvol = ( 44.99 ) mGy, DLP = ( 745.49 ) mGycm TECHNIQUE: Transaxial CT imaging of the brain was performed without administration of intravenous contrast material. Individualized dose optimization techniques were used for this CT. COMPARISON: None. FINDINGS: Normal soft tissue structures. Normal calvarium. Normal size ventricles and extra-axial spaces for the patient's age. Normal white matter tracts of the cerebral hemispheres. Normal basal ganglia and thalami. Normal brainstem. Normal cerebellum. There is no intracranial hemorrhage. There are no findings of an acute ischemic infarction. Normal visualized paranasal sinuses. CT/Brain/Head without Contrast IMPRESSION: Normal unenhanced CT scan of the brain. Electronically Signed: Hellen Oneill MD at 13:28 EDT Tel , Service support , CC: Jocelyn Palm MD; TOMÁS DICKEY Director Of Campus Recreation: Signed ORBIT FACE NECK W/WO Observed: 08/13/2017 Status: F Source: [place] CONTRAST 12:32 PM [facility] REPOSITORY [facility] [address] [place] [address] Orbit Face Neck W/WO Contrast MR#: [id number] Acct: [id number] Name: ANA LUISA STRICKLAND Rep #: [id number] : 1995 F 21 From: Simon Nails PCP: TOMÁS DICKEY Status: REG CLI Study: Orbit Face Neck W/WO Contrast Date of Exam: 08/13/17 Exam# [id number] Ordering Dr: Neyda Meek STUDY: MRI BRAIN WITH AND WITHOUT CONTRAST REASON FOR EXAM: Female, 21 years old. 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 TECHNIQUE: Standardized multiplanar fat and water weighted pulse sequences were obtained. 7 ml of Gadavist contrast material was administered intravenously for the contrast portion of the examination. COMPARISON: None. FINDINGS: Normal size of the ventricles and extra-axial spaces for the patient's age. Normal white matter tracts of the supratentorial brain. Normal bilateral basal ganglia. Normal thalami. There is no extra-axial fluid accumulation. Normal flow voids within the major intracranial circulation suggesting patency by spin echo criteria. Normal venous enhancement. There is no enhancing intra-axial or extra-axial abnormality. Normal sella turcica, pituitary gland, infundibular stalk, optic chiasm and hypothalamus. Normal tectal plate and pineal gland. Normal midbrain, bri and medulla. Normal cerebellum. Normal basal cisterns. Normal bilateral temporal bones. Normal bilateral internal auditory canals. IMPRESSION: Normal unenhanced and enhanced MRI of the brain. Electronically Signed: Simon Nails MD at 9:17 EST Tel , Service support , STUDY: MRI ORBITS WITH AND WITHOUT CONTRAST REASON FOR EXAM: Female, 21 years old. 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 TECHNIQUE: Standardized fat and water weighted pulse sequences were obtained in all 3 orthogonal planes, pre-and post contrast administration. 7 ml of Gadavist contrast material was administered intravenously for the contrast portion of the examination. COMPARISON: 08/10/2016 FINDINGS: Normal bilateral globes. The right optic nerve is unremarkable. Again noted is the nonenhancing enlargement of the left optic nerve at the intracanalicular and intracranial segments with involvement of the left optic chiasm. Findings are stable since the prior examination. Normal bilateral intraconal and extraconal spaces. Normal bilateral extraocular muscles. Normal sella turcica, pituitary gland, infundibular stalk, and hypothalamus. Normal bilateral cavernous sinuses. Normal tectal plate and pineal gland. Normal flow voids within the major intracranial circulation suggesting patency by spin echo criteria. Normal size of the ventricles and extra-axial spaces for the patient's age. Normal white matter tracts of the supratentorial brain. Normal bilateral basal ganglia. Normal thalami. There is no extra-axial fluid accumulation. Normal midbrain, bri and medulla. Normal cerebellum. Normal basal cisterns. 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 Electronically Signed: Simon Nails MD at 9:17 EST Tel , Service support , CC: Neyda Meek; TOMÁS DICKEY Director Of Campus Recreation: Signed ALLERGIES ALLERGIES DATE TYPE / NAME / CODE REACTION SEVERITY SOURCE CODE 07/19/2018 Drug acetaminophen/[id number] Unknown Unknown [place] Allergy/41 605(RXNORM) [facility] [id number]([facility]) Repository 07/19/2018 Drug ibuprofen/[id number]( Unknown Unknown [place] Allergy/41 RXNORM) [facility] 0852181([facility]) Repository 07/19/2018 Drug diphenhydramine/F0060 Unknown Unknown [place] Allergy/41 07335(RXNORM) [facility] 7826916([facility]) Repository 12/12/2017 Environ/42 SEASONAL ALLERGIES COUGH [facility] 5772523([facility]) Repository 11/20/2017 DRUG ACETAMINOPHEN UNKNOWN [address] 6049087([facility]) 11/20/2017 DRUG DIPHENHYDRAMINE UNKNOWN [address] 0239811([facility]) 11/20/2017 DRUG IBUPROFEN UNKNOWN [address] 6724849(SN Repository OMED CT) 11/10/2017 Drug No Known Unknown [place] Allergy/41 Allergies/[id number]( [facility] 0108334[facility] Repository NG/[id number] ACETAMINOPHEN [facility] 06([facility]) Repository NG/2183515 DIPHENHYDRAMINE [facility] 06([facility]) Repository NG/4376546 IBUPROFEN [facility] 06([facility]) Repository NG/9035596 SEASONAL ALLERGIES [facility] 06([facility]) Repository Drug NO KNOWN ALLERGIES [facility] Class/[address] [place] [address](SNOM Repository ED CT) ENCOUNTERS ENCOUNTERS ADMIT/DISCHARGE ACCOUNT NUMBER ADMITTING ENCOUNTER LOCATION SOURCE CLASS 07/19/2018/07/19/19 [id number] Emergency [address] ding:ED Repository 07/11/2018/07/11/19 [id number] Emergency [address] ding:ED Repository 06/22/2018/06/22/20 [id number] Emergency [place] ding:ED Repository 06/19/2018/06/20/20 [id number] Emergency [address] ding:ED Repository 05/31/2018/05/31/20 [id number] Emergency [address] ding:ED Repository 05/15/2018/05/15/20 [id number] Emergency [place] ding:ED Repository 05/11/2018/05/12/20 [id number] Emergency [place] ding:ED Repository 05/10/2018/05/10/20 [id number] Emergency [address] ding:ED Repository 05/02/2018/05/02/20 [id number] Emergency [address] ding:ED Repository 04/20/2018/04/21/20 [id number] Emergency [address] ding:ED Repository 04/12/2018/10/06 [id number] Emergency [place] ding:ED Repository 04/02/2018/04/03/20 [id number] Emergency [place] ding:ED Repository 03/27/2018/03/27/20 [id number] Emergency BBuilding:ER Kamran[address] Repository 03/21/2018/03/22/20 [id number] Emergency [place] ding:ED Repository 03/08/2018/03/08/20 [id number] Emergency [place] ding:ED Repository 02/12/2018/02/13/20 [id number] Emergency [place] ding:ED Repository 01/10/2018 [id number] CASS[place], Inpatient [facility] MEDICAL Repository CENTERBuildi ng:RILEY 01/04/2018/01/05/20 [id number] Emergency [place] ding:ED Repository 12/29/2017/12/30/19 [id number] Emergency [place] ding:ED Repository 12/27/2017/12/31/19 [id number] Ambulatory [address] Repository 12/12/2017/12/13/19 [id number] Ambulatory [address] [place] Repository 12/12/2017 [id number] Ambulatory [facility] [place] Repository 12/09/2017/12/10/19 [id number] Emergency [place] ding:ED Repository 11/28/2017/12/04/19 [id number] Ambulatory [address] [place] Repository 11/28/2017/11/29/19 [id number] Ambulatory [address] Repository 11/20/2017/11/22/19 [id number] Emergency [place] ding:ED Repository 11/14/2017/11/15/19 [id number] Ambulatory [address] ding:[facility] Repository 11/13/2017 [id number] Ambulatory [facility] Repository 11/13/2017 [id number] Ambulatory [facility] Repository 11/09/2017/11/11/19 [id number] Emergency [address] ding:ED Repository 10/18/2017 [id number] Ambulatory [facility] ding:LAB Repository 10/07/2017/10/08/19 [id number] Emergency [address] ding:ED Repository 08/13/2017 [id number] Ambulatory [facility] ding:MRI Repository PAYERS PAYERS ENCOUNTER GUARANTOR PAYER SUBSCRIBER SOURCE 07/19/2018 ANA LUISA A Primary ANA LUISA A [place] [id number] S Insurance:BUCKEYE GEARHARTDOB: [facility] [id number] PLANPolicy Number: Repository [id number]: 330 [id number] [phone] () Date:[id number] [address]KI: 07/19/2018 Secondary NOT GIVENUNK [place] Insurance:SELF PAY [facility] Number: Effective Repository Date:2018-07-19 07/11/2018 ANA LUISA A Primary ANA LUISA A [place] [id number] S Insurance:BUCKEYE GEARHARTDOB: [facility] [id number] PLANPolicy Number: Repository [address]Auv: 330 [id number] [phone] () Date:8456-70-52OY [address] [address]JP: 07/11/2018 Secondary NOT GIVENUNK [place] Insurance:SELF PAY [facility] Number: Effective Repository Date:2018-07-11 06/22/2018 ANA LUISA A Primary ANA LUISA A [place] [id number] 1/2 Insurance:BUCKEYE GEARHARTDOB: [facility] [id number] PLANPolicy Number: Repository [address]Bak: 330 [id number] [phone] (HP) Date:7517-69-71LZ [address] [place] [address]73[address]CB: 06/22/2018 Secondary NOT GIVENUNK [place] Insurance:SELF PAY [facility] Number: Effective Repository Date:2018-06-22 06/19/2018 ANA LUISA A Primary ANA LUISA A [place] [id number] 1/2 Insurance:BUCKEYE GEARHARTDOB: [facility] [id number] PLANPolicy Number: Repository [address]Jpj: 330 [id number] [phone] (HP) Date:3404-62-71BX [address] [place] [address] 63067FV: 06/19/2018 Secondary NOT GIVENUNK [place] Insurance:SELF PAY [facility] Number: Effective Repository Date:2018-06-19 05/31/2018 ANA LUISA A Primary ANA LUISA A [place] [id number] 1/2 Insurance:BUCKEYE GEARHARTDOB: [facility] [id number] [place] PLANPolicy Number: Repository [address]Lug: 330 [id number] [phone] () Date:2386-83-71US [address] [place] [address] 77234OY: 05/31/2018 Secondary NOT GIVENUNK [place] Insurance:SELF PAY [facility] Number: Effective Repository Date:2018-05-31 05/15/2018 ANA LUISA A Primary ANA LUISA A [place] [id number] 1/2 Insurance:BUCKEYE GEARHARTDOB: [facility] [id number] [place] PLANPolicy Number: Repository [address]Tdx: 330 [id number] [phone] (HP) Date:0609-19-91EO [address] [place] [address] 18198AI: 05/15/2018 Secondary NOT GIVENUNK [place] Insurance:SELF PAY [facility] Number: Effective Repository Date:2018-05-15 05/11/2018 ANA LUISA A Primary ANA LUISA A [place] [id number] 1/2 Insurance:BUCKEYE GEARHARTDOB: [facility] [id number] [place] PLANPolicy Number: Repository [address]Aae: 330 [id number] [phone] (HP) Date:6491-60-46[address] [place] [address] 50644GK: 05/11/2018 Secondary NOT GIVENUNK [place] Insurance:SELF PAY [facility] Number: Effective Repository Date:2018-05-11 05/10/2018 ANA LUISA A Primary ANA LUISA A [place] [id number] 1/2 Insurance:OBC GEARHARTDOB: [facility] [id number] Number: Repository [address]Oyx: 330 [id number] [phone] (HP) Date:0979-34-80[address], [place] [address]YD: 05/10/2018 Secondary NOT GIVENUNK [place] Insurance:SELF PAY [facility] Number: Effective Repository Date:2018-05-10 05/02/2018 ANA LUISA A Primary ANA LUISA A [place] [id number] 1/2 Insurance:BUCKEYE GEARHARTDOB: [facility] [id number] [place] PLANPolicy Number: Repository [address]Rie: 330 [id number] [phone] (HP) Date:5332-37-33VP [address] [place] [address] 13037YD: 05/02/2018 Secondary NOT GIVENUNK [place] Insurance:SELF PAY [facility] Number: Effective Repository Date:2018-05-02 04/20/2018 ANA LUISA A Primary ANA LUISA A [place] [id number] 1/2 Insurance:BUCKEYE GEARHARTDOB: [facility] [id number] [facility] [id number]: 330 [id number] [phone] (HP) Date:7541-91-87HU [address] [place] [address] 57242QC: 04/20/2018 Secondary NOT GIVENUNK [place] Insurance:SELF PAY [facility] Number: Effective Repository Date:2018-04-20 04/12/2018 ANA LUISA A Primary ANA LUISA A [place] [id number] Insurance:BUCKEYE GEARHARTDOB: [facility] [id number] New Rochelle HospitalPolicy Number: Repository [address]Lie: 330 [id number] [phone] () Date:7350-62-14QC [address] [place] [address] 69273MK: 04/12/2018 Secondary NOT GIVENUNK [place] Insurance:SELF PAY [facility] Number: Effective Repository Date:2018-04-12 04/02/2018 ANA LUISA A Primary AAN LUISA A [place] [id number] Insurance:BUCKEYE GEARHARTDOB: [facility] [id number] Number: Repository [address]Mta: 330 [id number] [phone] () Date:0434-05-73NM [address] [place] [address] 18986OK: 04/02/2018 Secondary NOT GIVENUNK [place] Insurance:SELF PAY [facility] Number: Effective Repository Date:2018-04-02 03/27/2018 ANA LUISA A Primary ANA LUISA A [facility] GEARHARTDOB: Insurance:BUCKEYE GEARHARTDOB: [facility] [id number] HEALTH PLANPolicy [id number] Repository [address] Number: 07/09 [place], [place] [id number] [address]~ANDRAGSELECT MEDICAL [facility] Date:2018-03-27 33329Ndj: (081) [email or web address] 6549-04-60Uqpc [phone] el: (330) Name:XPO Box (HP) [address] [place], [place] [address]isaías CATALINO [phone] (WP) (HP)Tel: [phone]: (WP) [phone] 03/21/2018 ANA LUISA A Primary ANA LUISA A [place] [id number] 1/2 Insurance:BUCKEYE GEAREZEKIELTDOB: [facility] [id number] [place] PLANPolicy Number: Repository [address]Zfo: 330 [id number] [phone] () Date:3515-48-27TO [address] [place] [address] 05766FV: 03/21/2018 Secondary NOT GIVENUNK [place] Insurance:SELF PAY [facility] Number: Effective Repository Date:2018-03-21 03/08/2018 ANA LUISA A Primary ANA LUISA A [place] [id number] 1/2 Insurance:BUCKEYE GEAREZEKIELTDOB: [facility] [id number] [place], [place] PLANPolicy Number: Repository [address]Ipn: 330 [id number] [phone] () Date:9916-24-24JK [address] [place] [address] 47165PL: 03/08/2018 Secondary NOT GIVENUNK [place] Insurance:SELF PAY [facility] Number: Effective Repository Date:2018-03-08 02/12/2018 ANA LUISA A Primary ANA LUISA A [place] [id number] 1/2 Insurance:BUCKEYE GEAREZEKIELTDOB: [facility] [id number] [place] PLANPolicy Number: Repository [address]Umh: 330 [id number] [phone] () Date:6654-70-68KI [address] [place] [address] 88382PV: 02/12/2018 Secondary NOT GIVENUNK [place] [facility]LF [facility] Number: Effective Repository Date:2018-02-12 01/10/2018 ANA LUISA A Primary ANA LUISA A [facility] GEARHARTDOB: Insurance:BUCKEYE [facility] GEARHARTDOB: [facility] MEDICAIDPolicy [id number] Repository HASKELL [facility] Number: [place], [place] [id number]: (330) Date: [phone] (HP) 01/04/2018 ANA LUISA A Primary ANA LUISA A [place] [id number] N Insurance:BUCKEYE GEARHARTDOB: [facility] [id number] [facility] Number: Repository [id number]: 330 [id number] [phone] (HP) Date:6054-42-24WK [address] [place] [address] 53015FC: 01/04/2018 Secondary NOT GIVENUNK [place] Insurance:SELF PAY [facility] Number: Effective Repository Date:2018-01-04 12/29/2017 ANA LUISA A Primary ANA LUISA A [place] [id number] N Insurance:BUCKEYE GEARHARTDOB: [facility] [id number] [place] [facility] Number: Repository [id number]: ([phone] [id number] [phone] (HP) Date:3074-17-42MN [address] [place] [address] 36205GJ: 12/29/2017 Secondary NOT GIVENUNK [place] Insurance:SELF PAY [facility] Number: Effective Repository Date:2017-12-29 12/09/2017 ANA LUISA A Primary ANA LUISA A [place] [id number] N Insurance:BUCKEYE GEARHARTDOB: [facility] [id number] HospitalPolic Number: Repository [id number]: 330 [id number] [phone] (HP) Date:9694-49-37OT [address] [place] [address] 32616VS: 12/09/2017 Secondary NOT GIVENUNK [place] Insurance:SELF PAY [facility] Number: Effective Repository Date:2017-12-09 11/20/2017 ANA LUISA A Primary ANA LUISA A [place] [id number] N Insurance:BUCKEYE GEARHARTDOB: [facility] [id number] [place] PLANPolic Number: Repository [id number]: 330 [id number] [phone] () Date:1428-92-95TY [address] [place] [address] 42806OE: 11/20/2017 Secondary NOT GIVENUNK [place] Insurance:SELF PAY [facility] Number: Effective Repository Date:2017-11-20 11/14/2017 ANA LUISA A Primary ANA LUISA A [facility]: Insurance:BUCKEYE GEARHARTDOB: [facility] N HEALTH PLANPoly [id number] Repository [place] Number: [place], [place] [id number] [address]~[facility] Date:2017-11-14 [id number]: [phone] [email or web address] [id number] [phone] el: [phone]) Name:ANDRIAO Samina () [address] [place] [address] [phone] (WP) (HP)Tel: [phone]: ([phone] 11/09/2017 ANA LUISA A Primary ANA LUISA A [place] [id number] N Insurance:BUCKEYE GEARHARTDOB: [facility] [id number] [place] [facility]ANPolmer[facility] Number: Repository [id number]: [phone] [id number] [phone] () Date:7669-41-51GA [address] [place] [address] [id number]: 11/09/2017 Secondary NOT GIVENUNK [place] Insurance:SELF PAY [facility] Number: Effective Repository Date:2017-11-09 10/18/2017 Ana Luisa A Primary Ana Luisa A [place] [id number] N Insurance:BUCKEYE GearhartDOB: [facility] [id number] PLANPolicy Number: Repository [id number]: 330 [id number] [phone] (HP) Date:7163-08-96ZP [address] [place] [address] 45407LA: 10/18/2017 Secondary NOT GIVENUNK [place] Insurance:SELF PAY [facility] Number: Effective Repository Date:2017-10-18 10/07/2017 Ana Luisa A Primary Ana Luisa A [place] [id number] N Insurance:BUCKEYE GearhartDOB: [facility] [id number] PLANPolicy Number: Repository [id number]: 330 [id number] [phone] () Date:3892-08-82TI [address] [place] [address] [id number]: 10/07/2017 Secondary NOT GIVENUNK [place] Insurance:SELF PAY [facility] Number: Effective Repository Date:2017-10-07 08/13/2017 Ana Luisa A Primary Ana Luisa A [place] [id number] N Insurance:BUCKEYE GearhartDOB: [facility] [id number] PLANPolicy Number: Repository [id number]: (485) [id number] [phone] (HP) Date:5021-49-90TT [address] [place] [address] 21494RH: 08/13/2017 Secondary NOT GIVENUNK Dorothea Insurance:SELF PAY [facility] Number: Effective Repository Date:2017-08-06
== END 2018-06-20 00:13 | disposition home or self-care (01) ==
PROVIDERS: Emergency Provider Emergency Medicine; Family Provider Family Medicine; PCP Family Medicine
DX: L02.11 Cutaneous abscess of neck (principal); Z79.899 Other long term (current) drug therapy
CPT/HCPCS: 10060; 96372; 99285

== ENCOUNTER 2018-06-22 14:17 | Emergency (ER) | payer MEDICAID, SELFPAY ==
[2018-06-22 14:18] VITALS: BP 135/98; PULSE 108; RESP 16; TEMP 37.6; O2SAT 98; BMI 24.5
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
[2018-06-22] MEDS: 0.9% Normal Saline 1,000 ML 1000 ML IV (15:17)
[2018-06-22] MEDS: Ondansetron 4 MG/2 ML Vial IV (15:17)
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
[2018-06-22 16:28] VITALS: BP 129/76; PULSE 98; RESP 18; TEMP 37.5; O2SAT 98
--- NOTE | 2018-06-24 13:05 | CM.ED ---
Social Work Note Letter from Lieutenant Sosaald Dayton of the [employer] expressing concerns regarding the pt's living conditions as she has an approximate 3 y/o son. Per the report the home was covered in feces, smelled of urine and was littered with dirt and excrement. Reports that the child also stated to him that I am hurt and have a fletcher fletcher. Only identifying information was the address which this procedure writer cannot look up via the [employer] system. Lt. Burris came to hospital this date and this procedure writer updated that an individual cannot be looked up via the address. Lt. placed call to his Chief who states that this procedure writer should be able to get all needed information from [place] or [place]. Again inform that with just an address we cannot get that information. Also inform that those employed by the fire department are mandated reporters and should be filing the report as they were the ones with the first hand experience. Lt. also states that the pt was transported by EMS on 06/19. Census from 06/19 and 06/22 were printed out and compared. One female the age of 22 was on both and address was confirmed. Upon chart review it appears that [facility], made report on 06/22 and [facility] intended on doing a well check. Placed call to [facility] this date to confirm that they did in fact receive this report. [facility] worker confirmed, no further needs at this time. PLAN: [facility] to determine if further investigation is needed. Michell Sandoval, TRUCK WASHER, EMERGENCY MEDICAL DISPATCHER
--- OUTSIDE RECORDS SUMMARY | 2018-09-24 13:34 | XMS RPT_ITS ---
:1995 Author Organization [place] Support Name Relationship Address Phone AJAY STRICKLAND Unavailable Unavailable + rosario SNIDER ANGELA Unavailable Unavailable + KENFR Unavailable [address] + [place] [address] DORIAN, AJAY Unavailable Unavailable + rosario SNIDER ANGELA Unavailable Unavailable + KENFR Unavailable [address] + [place] [address] DORIAN, AJAY Unavailable Unavailable + rosario SNIDER ANGELA Unavailable Unavailable + KENFR Unavailable [address] + [place] [address] DORIAN, AJAY Unavailable Unavailable + rosario SNIDER ANGELA Unavailable Unavailable + KENFR Unavailable [address] + [place] [address] DORIAN, AJAY Unavailable Unavailable + rosario SNIDER ANGELA Unavailable Unavailable + KENFR Unavailable [address] + [place] [address] DORIAN, AJAY Unavailable Unavailable + [place] CORNEJO, MINDY Unavailable Unavailable + KENFR Unavailable [address] + [place] [address] DORIAN, AJAY Unavailable Unavailable + TYLOR, rosario CORNEJO MINDY Unavailable Unavailable + KENFR Unavailable [address] + [place] [address] DORIAN, AJAY Unavailable Unavailable + BOLJACKY, rosario CORNEJO, MINDY Unavailable Unavailable + KENFR Unavailable [address] + [place] [address] DORIAN, AJAY Unavailable Unavailable + TYLOR, rosario CORNEJO, MINDY Unavailable Unavailable + KENFR Unavailable [address] + [place] [address] DORIAN, AJAY Unavailable Unavailable + TYLOR, rosario CORNEJO, MINDY Unavailable Unavailable + KENFR Unavailable [address] + [place] [address] DORIAN, AJAY Unavailable Unavailable + TYLOR, rosario CORNEJO, MINDY Unavailable Unavailable + KENFR Unavailable [address] + [place] [address] DORIAN, AJAY Unavailable Unavailable + TYLOR, rosario CORNEJO, MINDY Unavailable Unavailable + KENFR Unavailable [address] + [place] [address] DORIAN, AJAY Unavailable Unavailable + DORIANLUAN Unavailable [address] + [place] [address] DONTE BEE Unavailable [address] + [place] [address] DORIAN, AJAY Unavailable Unavailable + [place] CLEMENTE, MINDY Unavailable Unavailable + KENFR Unavailable [address] + [place] [address] DORIAN, AJAY Unavailable Unavailable + [place] CLEMENTE MINDY Unavailable Unavailable + KENFR Unavailable [address] + [place] [address] DORIAN, AJAY Unavailable Unavailable + [place] CLEMENTE, MINDY Unavailable Unavailable + KENFR Unavailable [address] + [place] [address] DORIAN, AJAY Unavailable Unavailable + [place], [place] [...] AJAY Unavailable Unavailable + DORIAN, LUAN Unavailable [address] + [place] [address] CRISTALDONTE Unavailable [address] + [place] [address] DORIAN, AJAY Unavailable Unavailable + [place] [...] Attending Unavailable DICKEY, TOMÁS Primary Care Unavailable [place] Concepcion Attending Unavailable DICKEY, TOMÁS Primary Care [...] Primary Care Unavailable Neyda Beckett Attending Unavailable VAUGHN LUAN G Attending Unavailable VAUGHN, LUAN G Referring Unavailable VAUGHN, LUAN G Referring Unavailable VAUGHN, LUAN G Referring Unavailable VAUGHN, LUAN G Referring Unavailable VAUGHN, LUAN G Referring Unavailable DR. DANIEL MARCUS DO Attending Unavailable TOMÁS DICKEY MD Primary Care Unavailable HERNAN LIAO Attending Unavailable TOMÁS DICKEY MD Primary Care Unavailable MICHELL MADERA Admitting Unavailable MICHELL MADERA Attending Unavailable TOMÁS DICKEY Primary Care Unavailable PROBLEMS PROBLEMS DATE TYPE CONDITION / CODE ATTENDING STATUS SOURCE 03/26/2018 Unknown M25.531 - Pain in Southern, Active [place] [facility] right wrist / [facility] M25.531(ICD-10) Hospital Repository 01/10/2018 Admitting Unknown / MICHELL MADERA Active [facility] UNK(Unknown[facility]ository 01/02/2018 Unknown R10.9 - Tessa Mckinney Active [facility] abdominal pain / Hospital R10.9(ICD-10) 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, 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 Q85.01(ICD-10) [facility] Repository 11/13/2017 Active Unspecified NA Active [facility] convulsions / [facility] Main R56.9(ICD-10) [facility] Rep[facility] 11/13/2017 Active 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 / [facility] C72.30(ICD-10) Repository 11/13/2017 Active Tachycardia, NA Active [facility] unspecified / Clinic Main R00.0(ICD-10) [facility] Rep[facility] 11/13/2017 Active Orthostatic NA Active [facility] hypotension / Clinic Main I95.1(ICD-10) [facility] Rep[facility] 11/13/2017 Active Syncope and NA Active [facility] collapse / Clinic Main R55(ICD-10) [facility] Rep[facility] 11/13/2017 Active Hypertensive NA Active [facility] chronic [facility] Main disease with stage [facility] 1 through stage 4 Repository chronic kidney disease, or unspecified chronic kidney disease / I12.9(ICD-10) 10/18/2017 Unknown E16.2 - TOMÁS DICKEY Active [facility] Hypoglycemia, Community unspecified / Hospital E16.2(ICD-10) Repository [...] 08/13/2017 Unknown Q85.01 - SIS [place] Active [facility] Neurofibromatosis, Community type 1 / Hospital Q85.01(ICD-10) Repository PROCEDURES PROCEDURES No Procedure Records FoundRESULTS RESULTS EMERGENCY DEPARTMENT Observed: 07/19/2018 Status: F Source: [place] SUMMARY 3:57 PM [facility] REPOSITORY [facility] Medical Records Department [address] [place] [address] Emergency Department Summary 07/19/18 1509 MR#: [id number] Acct: [id number] Name: ANA LUISA STRICKLAND Rep #: [id number] : 1995 22 From: Mansoor Feng MD [...] Migraine headache This note was generated with [employer] dictation software. It may contain incorrect words, [...] problems, contact your Primary Care Provider. Call [email or web address] Registry ([phone]) or report to the closest Emergency Room. Call 911 if necessary. 07/19/18 9599 <Electronically signed by Mansoor Feng MD> Date Mansoor Feng MD Cosigner Signature (If Indicated): Date CC: Tomás Dickey MD DISCHARGE INSTRUCTION Observed: 07/19/2018 Status: F Source: [place] 3:57 PM [facility] REPOSITORY [facility] Medical Records Department [address] [place] [address] Discharge Instruction 07/19/18 1557 MR#: [id number] Acct: [id number] Name: ANA LUISA STRICKLAND Rep #: [id number] : 1995 22 From: Mansoor Feng MD [...] your Primary Care Provider. Call [facility] ([phone]) or report to the closest Emergency Room. Call 911 if necessary. 07/19/18 1557 <Electronically signed by Mansoor Feng MD> Date Mansoor Feng MD Cosigner Signature (If Indicated): Date CC: Tomás Dickey MD EMERGENCY DEPARTMENT Observed: 07/11/2018 Status: F Source: [place] SUMMARY 2:19 AM [facility] REPOSITORY [facility] Medical Records Department [address] [place] [address] Emergency Department Summary 07/11/18 0125 MR#: [id number] Acct: [id number] Name: ANA LUISA STRICKLAND Rep #: [id number] : 1995 22 From: Daniel Saldivar MD [...] discharge resolved This note was generated with [employer] software. It may contain incorrect words, spelling, [...] your Primary Care Provider. Call [facility] ([phone]) or report to the closest Emergency Room. Call 911 if necessary. 07/11/18218 <Electronically signed by Daniel Saldivar MD> Date Daniel Saldivar MD Cosigner Signature (If Indicated): Date CC: Tomás Dickey MD DISCHARGE INSTRUCTION Observed: 07/11/2018 Status: F Source: [place] 2:19 AM [facility] REPOSITORY [facility] Medical Records Department [address] [place] [address] Discharge Instruction 07/11/18 0159 MR#: [id number] Acct: [id number] Name: ANA LUISA STRICKLAND Rep #: [id number] : 1995 22 From: Daniel Saldivar MD PCP: Tomás Dickey MD Status: [facility] ER ED Disposition - Plan for ED Patient: Disposition: Home or Assisted Living Chief Complaint: Complaint Instructions: ED Blank Diagnosis Form Referrals: Tomás Dickey MD [Primary Care Provider] - What to do if you have Problems For any increased pain, shortness of breath, bleeding, nausea or vomiting, chest pain, or any unexpected problems, contact your Primary Care Provider. Call [facility] ([phone]) or report to the closest Emergency Room. Call 911 if necessary. 07/11/18218 <Electronically signed by Daniel Saldivar MD> Date Daniel Saldivar MD Cosigner Signature (If Indicated): Date CC: Tomás Dickey MD URINALYSIS, COMPLETE Collected: 07/11/2018 Status: F Source: [place] 1:25 [facility] REPOSITORY Order Comment: Order Date: 07/11/18 How [...] MUCUS, URINE Performed By: #### L400.0001 #### [facility] [address] [place], [address] CT/NG [facility] BY PCR Collected: 07/11/2018 Status: F Source: [place] 1:25 [facility] REPOSITORY Order Comment: Order Date: 07/11/18 TYPE CODE TESTS RESULT OUT OF RANGE REFERENCE UNITS LAB L8200.2100 Negative Normal Chlam Negative Trac PCR LAB L8200.2200 Negative Normal NG by Negative PCR Performed By: #### L8200.2000 #### [facility] [address] [place], [address] EMERGENCY DEPARTMENT Observed: 06/22/2018 Status: F Source: [place] SUMMARY 4:03 PM [facility] REPOSITORY [facility] Medical Records Department [address] [place] [address] Emergency Department Summary 06/22/18 1507 MR#: [id number] Acct: [id number] Name: ANA LUISA STRICKLAND Rep #: [id number] : 1995 22 From: Ever Nagy MD [...] home. Nursing also notified children's services of [facility] to ensure a follow-up visit of the home and to check on the child. Treatment Plan: Fluids and rest. Increase diet slowly. Disposition: Discharge Impression: Acute viral gastroenteritis This note was generated with [employer] dictation software. It may contain incorrect words, [...] your Primary Care Provider. Call [facility] ([phone]) or report to the closest Emergency Room. Call 911 if necessary. 06/22/18 1603 <Electronically signed by Ever Nagy MD> Date Ever Nagy MD Cosigner Signature (If Indicated): Date CC: Tomás Dickey MD DISCHARGE INSTRUCTION Observed: 06/22/2018 Status: F Source: [place] 4[facility] Medical Records Department [address] [place] [address] Discharge Instruction 06/22/18 1511 MR#: [id number] Acct: [id number] Name: ANA LUISA STRICKLAND Rep #: [id number] : 1995 22 From: Ever Nagy MD PCP: Tomás Dickey MD Status: [facility] ER ED Disposition - Plan for ED [...] problems, contact your Primary Care Provider. Call [email or web address] Registry ([phone]) or report to the closest Emergency Room. Call 911 if necessary. 06/22/18 1603 <Electronically signed by Ever Nagy MD> Date Ever Nagy MD Cosigner Signature (If Indicated): Date CC: Tomás Dickey MD EMERGENCY DEPARTMENT Observed: 06/20/2018 Status: F Source: [place] SUMMARY 7:15 AM [facility] Medical Records Department [address] [place] [address] Emergency Department Summary 06/19/18 2314 MR#: [id number] Acct: [id number] Name: ANA LUISA STRICKLAND Rep #: [id number] : 1995 22 From: Daniel Saldivar MD [...] and drainage This note was generated with [employer] dictation software. It may contain incorrect words, [...] problems, contact your Primary Care Provider. Call [email or web address] Registry ([phone]) or report to the closest Emergency Room. Call 911 if necessary. 06/20/18714 <Electronically signed by Daniel Saldivar MD> Date Daniel Saldivar MD Cosigner Signature (If Indicated): Date _ CC: Tomás Dickey MD DISCHARGE INSTRUCTION Observed: 06/20/2018 Status: F Source: [place] 7:15 AM [facility] REPOSITORY [facility] Medical Records Department [address] [place] [address] [place] [address] Discharge Instruction 06/19/18 2334 MR#: [id number] Acct: [id number] Name: ANA LUISA STRICKLAND Rep #: [id number] : 1995 22 From: Daniel Saldivar MD [...] your Primary Care Provider. Call [facility] ([phone]) or report to the closest Emergency Room. Call 911 if necessary. 06/20/18714 <Electronically signed by Daniel Saldivar MD> Date Daniel Saldivar MD Cosigner Signature (If Indicated): Date CC: Tomás Dickey MD EMERGENCY DEPARTMENT Observed: 06/01/2018 Status: F Source: [place] SUMMARY 1:43 AM [facility] REPOSITORY [facility] Medical Records Department [address] [place] [address] Emergency Department Summary 05/31/18 2312 MR#: [id number] Acct: [id number] Name: ANA LUISA STRICKLAND Rep #: [id number] : 1995 22 From: Neyda Beckett MD [...] Lumbosacral strain This note was generated with [employer] dictation software. It may contain incorrect words, [...] your Primary Care Provider. Call [facility] ([phone]) or report to the closest Emergency Room. Call 911 if necessary. 06/01/18 0143 <Electronically signed by Neyda Beckett MD> Date Neyda Beckett MD Cosigner Signature (If Indicated): Date CC: Tomás Dickey MD DISCHARGE INSTRUCTION Observed: 06/01/2018 Status: F Source: [place] 1:05 AM [facility] REPOSITORY [facility] Medical Records Department [address] [place] [address] Discharge Instruction 05/31/18 2316 MR#: [id number] Acct: [id number] Name: ANA LUISA STRICKLAND Rep #: [id number] : 1995 22 From: Neyda Beckett MD [...] problems, contact your Primary Care Provider. Call [facility] Registry ([phone]) or report to the closest Emergency Room. Call 911 if necessary. 06/01/18 0105 <Electronically signed by Neyda Beckett MD> Date Neyda Beckett MD Cosigner Signature (If Indicated): Date CC: Tomás Dickey MD EMERGENCY DEPARTMENT Observed: 05/15/2018 Status: F Source: [place] SUMMARY 10:51 PM [facility] REPOSITORY [facility] Medical Records Department [address] [place] [address] Emergency Department Summary 05/15/18 2102 MR#: [id number] Acct: [id number] Name: ANA LUISA STRICKLAND Rep #: [id number] : 1995 22 From: Mansoor Feng MD [...] Impression: Anxiety This note was generated with [employer] dictation software. It may contain incorrect words, [...] your Primary Care Provider. Call [facility] ([phone]) or report to the closest Emergency Room. Call 911 if necessary. 05/15/18 1600 <Electronically signed by Mansoor Feng MD> Date Mansoor Feng MD Cosigner Signature (If Indicated): Date CC: Tomás Dickey MD DISCHARGE INSTRUCTION Observed: 05/15/2018 Status: F Source: [place] 9:03 PM [facility] REPOSITORY [facility] Medical Records Department [address] [place] [address] Discharge Instruction 05/15/182101 MR#: [id number] Acct: [id number] Name: ANA LUISA STRICKLAND Rep #: [id number] : 1995 22 From: Mansoor Feng MD [...] your Primary Care Provider. Call [facility] ([phone]) or report to the closest Emergency Room. Call 911 if necessary. 05/15/182102 <Electronically signed by Mansoor Feng MD> Date Mansoor Denson Signature (If Indicated): Date CC: Tomás Dickey MD EMERGENCY DEPARTMENT Observed: 05/12/2018 Status: F Source: [place] SUMMARY 12:51 AM [facility] REPOSITORY [facility] Medical Records Department [address] [place] [address] Emergency Department Summary 05/11/18 2350 MR#: [id number] Acct: [id number] Name: ANA LUISA STRICKLAND Rep #: [id number] : 1995 22 From: Concepcion Gonzales MD [...] Impression: Headache This note was generated with [employer] dictation software. It may contain incorrect words, [...] problems, contact your Primary Care Provider. Call [email or web address] Registry ([phone]) or report to the closest Emergency Room. Call 911 if necessary. 05/12/18 0051 <Electronically signed by Concepcion Gonzales MD> Date Concepcion Gonzales MD Cosigner Signature (If Indicated): Date CC: Tomás Dickey MD DISCHARGE INSTRUCTION Observed: 05/11/2018 Status: F Source: [place] 11:52 PM [facility] Medical Records Department [address] [facility] [place] [address] Discharge Instruction 05/11/182351 MR#: [id number] Acct: [id number] Name: ANA LUISA STRICKLAND Rep #: [id number] : 1995 22 From: Concepcion Gonzales MD [...] your Primary Care Provider. Call [facility] ([phone]) or report to the closest Emergency Room. Call 911 if necessary. 05/11/182351 <Electronically signed by Concepcion Gonzales MD> Date Concepcion Gonzales MD Cosigner Signature (If Indicated): Date CC: Tomás Dickey MD EMERGENCY DEPARTMENT Observed: 05/10/2018 Status: F Source: [place] SUMMARY 10:00 PM [facility] Medical Records Department [address] [facility] [place] [address] Emergency Department Summary 05/10/182044 MR#: [id number] Acct: [id number] Name: ANA LUISA STRICKLAND Rep #: [id number] : 1995 22 From: Concepcion Gonzales MD [...] extremity contusion This note was generated with [employer] dictation software. It may contain incorrect words, spelling, and punctuation that were not noted in review of the chart prior to signing ED Disposition - Plan for ED Patient: Chief Complaint: Upper Extremity Injury Instructions: ED Contusion Upper Ext Prescriptions: Naproxen [Naprosyn] 500 mg PO BID PRN #20 tablet [facility] - Tomás Dickey MD [Primary Care Provider] - What to do if you have Problems For any increased pain, shortness of breath, bleeding, nausea or vomiting, chest pain, or any unexpected problems, contact your Primary Care Provider. Call [email or web address] Registry ([phone]) or report to the closest Emergency Room. Call 911 if necessary. 05/10/18 2200 <Electronically signed by Concepcion Gonzales MD> Date Concepcion Gonzales MD Cosigner Signature (If Indicated): Date CC: Tomás Dickey MD DISCHARGE INSTRUCTION Observed: 05/10/2018 Status: F Source: [place] 9:55 PM [facility] REPOSITORY [facility] Medical Records Department [address] [place] [address] Discharge Instruction 05/10/182153 MR#: [id number] Acct: [id number] Name: ANA LUISA STRICKLAND Rep #: [id number] : 1995 22 From: Concepcion Gonzales MD [...] your Primary Care Provider. Call [facility] ([phone]) or report to the closest Emergency Room. Call 911 if necessary. 05/10/182154 <Electronically signed by Concepcion Gonzales MD> Date Concepcion Gonzales MD Cosigner Signature (If Indicated): Date CC: Tomás Dickey MD FOREARM 2 VIEWS Observed: 05/10/2018 Status: F Source: [place] 8[facility]38 PM [facility] Imaging Services [address] [place] [address] Forearm 2 Views MR#: [id number] Acct: [id number] Name: ANA LUISA STRICKLAND Rep #: [id number] : 1995 F 22 From: Juanjose Qureshi MD PCP: Tomás Dickey MD Status: PRE ER Study: Forearm 2 Views Date of Exam: 05/10/18 Exam# [id number] Ordering Dr: Concepcion Gonzales MD STUDY: X-RAY [...] CC: Concepcion Gonzales MD; Tomás Dickey MD Cso: Signed ELBOW MIN 3 VIEWS Observed: 05/10/2018 Status: F Source: [place] 8:38 PM [facility] REPOSITORY [facility] Imaging Services [address] [place] [address] Elbow min 3 Views MR#: [id number] Acct: [id number] Name: ANA LUISA STRICKLAND Rep #: [id number] : 1995 F 22 From: Juanjose Qureshi MD PCP: Tomás Dickey MD Status: REG ER Study: Elbow min 3 Views Date of Exam: 05/10/18 Exam# [id number] Ordering Dr: Concepcion Gonzales MD STUDY: X-RAY [...] CC: Concepcion Gonzales MD; Tomás Dickey MD Cso: Signed WRIST MIN 3 VIEWS Observed: 05/10/2018 Status: F Source: [place] 8:38 PM [facility] REPOSITORY [facility] Imaging Services [address] [place] [address] Wrist min 3 Views MR#: [id number] Acct: [id number] Name: ANA LUISA STRICKLAND Rep #: [id number] : 1995 F 22 From: Juanjose Qureshi MD PCP: Tomás Dickey MD Status: [facility] ER Study: Wrist min 3 Views Date of Exam: 05/10/18 Exam# [id number] Ordering Dr: Concepcion Gonzales MD STUDY: X-RAY [...] CC: Concepcion Gonzales MD; Tomás Dickey MD Cso: Signed EMERGENCY DEPARTMENT Observed: 05/06/2018 Status: F Source: [place] SUMMARY 9:05 AM [facility] REPOSITORY [facility] Medical Records Department [address] [place] [address] Emergency Department Summary 12/09/17 0335 MR#: [id number] Acct: [id number] Name: ANA LUISA STRICKLAND Rep #: [id number] : 1995 22 From: Tessa Mckinney DO [...] unknown etiology This note was generated with [employer] dictation software. It may contain incorrect words, [...] your Primary Care Provider. Call [facility] ([phone]) or report to the closest Emergency Room. Call 911 if necessary. Date Tessa Faye DO Cosigner Signature (If Indicated): Date CC: Tomás Dickey MD EMERGENCY DEPARTMENT Observed: 05/02/2018 Status: F Source: [place] SUMMARY 9:49 AM [facility] REPOSITORY [facility] Medical Records Department [address] [place] [address] Emergency Department Summary 05/02/18 0943 MR#: [id number] Acct: [id number] Name: ANA LUISA STRICKLAND Rep #: [id number] : 1995 22 From: James Kumari DO [...] Acute bronchitis This note was generated with [employer] dictation software. It may contain incorrect words, [...] your Primary Care Provider. Call [facility] ([phone]) or report to the closest Emergency Room. Call 911 if necessary. 05/02/18 0949 <Electronically signed by James Kumari DO> Date James Kumari DO Cosigner Signature (If Indicated): Date CC: Tomás Dickey MD EMERGENCY DEPARTMENT Observed: 04/21/2018 Status: F Source: [place] SUMMARY 2:10 AM [facility] REPOSITORY [facility] Medical Records Department [address] [place] [address] Emergency Department Summary 04/21/18 0205 MR#: [id number] Acct: [id number] Name: ANA LUISA STRICKLAND Rep #: [id number] : 1995 22 From: Cristiano Iqbal MD [...] your Primary Care Provider. Call [facility] ([phone]) or report to the closest Emergency Room. Call 911 if necessary. 04/21/18 0210 <Electronically signed by Cristiano Iqbal MD> Date Cristiano Iqbal MD Cosigner Signature (If Indicated): Date CC: Tomás Dickey MD ,URINE Collected: 04/21/2018 Status: F Source: [place] 12:10 AM [facility] REPOSITORY Order Comment: Order Date: 04/20/18 TYPE CODE TESTS RESULT OUT OF REFERENCE UNITS RANGE LAB L400.8000 Negative Normal HCGUQUAL Negative Result Comment: Very dilute urine specimens, as indicated by a low specific gravity, may not contain sales and merchandising representative levels of hCG. If is still suspected, a first morning urine specimen should be collected 48 hours later and tested. Performed By: #### L400.7600 #### [facility] [address] [place], [address] URINALYSIS, COMPLETE Collected: 04/21/2018 Status: F Source: [place] 12:10 AM [facility] REPOSITORY Order Comment: Order Date: 04/20/18 How [...] URINE SEEN Performed By: #### L400.0001 #### [facility] [address] [facility] [place], [place], [address] DISCHARGE INSTRUCTION Observed: 04/12/2018 Status: F Source: [place] 9:05 PM [facility] REPOSITORY [facility] Medical Records Department [address] [place] [address] Discharge Instruction 04/12/182103 MR#: [id number] Acct: [id number] Name: ANA LUISA STRICKLAND Rep #: [id number] : 1995 22 From: Mansoor Feng MD [...] your Primary Care Provider. Call [facility] ([phone]) or report to the closest Emergency Room. Call 911 if necessary. 04/12/182104 <Electronically signed by Mansoor Feng MD> Date Mansoor Feng MD Cosigner Signature (If Indicated): Date CC: Tomás Dikcey MD EMERGENCY DEPARTMENT Observed: 04/12/2018 Status: F Source: [place] SUMMARY 9:04 PM [facility] REPOSITORY [facility] Medical Records Department [address] [place] [address] Emergency Department Summary 04/12/182102 MR#: [id number] Acct: [id number] Name: ANA LUISA STRICKLAND Rep #: [id number] : 1995 22 From: Mansoor Feng MD [...] ED physician This note was generated with [employer] dictation software. It may contain incorrect words, [...] your Primary Care Provider. Call [facility] ([phone]) or report to the closest Emergency Room. Call 911 if necessary. 04/12/182103 <Electronically signed by Mansoor Feng MD> Date Mansoor Feng MD Cosigner Signature (If Indicated): Date CC: Tomás Dickey MD EMERGENCY DEPARTMENT Observed: 04/03/2018 Status: F Source: [place] SUMMARY 12:28 AM [facility] REPOSITORY [facility] Medical Records Department [address] [place] [address] Emergency Department Summary 04/03/18 0024 MR#: [id number] Acct: [id number] Name: ANA LUISA STRICKLAND Rep #: [id number] : 1995 22 From: Suleiman Wen MD [...] right foot This note was generated with Sassoration software. It may contain incorrect words, spelling, [...] your Primary Care Provider. Call [facility] ([phone]) or report to the closest Emergency Room. Call 911 if necessary. 04/03/18 0028 <Electronically signed by Suleiman Wen MD> Date Suleiman Wen MD Cosigner Signature (If Indicated): Date CC: Tomás Dickey MD ANKLE MIN 3 VIEWS Observed: 04/02/2018 Status: F Source: [place] 10:15 PM [facility] REPOSITORY [facility] Imaging Services [address] [place] [address] Ankle min 3 Views MR#: [id number] Acct: [id number] Name: ANA LUISA STRICKLAND Rep #: [id number] : 1995 F 22 From: Jerald Daigle DO PCP: Tomás Dickey MD Status: REG ER Study: Ankle min 3 Views Date of Exam: 04/02/18 Exam# [id number] Ordering Dr: Almas,Porter P. STUDY: X-RAY - [...] Jerald Daigle DO at 22:39 EDT Tel [phone], Service support , CC: ED PHYSICIAN PROVIDER; Tomás Dickey MD Cso: Signed UA Collected: 03/27/2018 Status: F Source: [facility] 4:52 [facility] REPOSITORY TYPE CODE TESTS RESULT OUT OF RANGE REFERENCE UNITS LAB SPCUA(MANEUL NC) UA Specimen Type Clean Catch LAB [...] Performed By: #### UA, UAMICAO, PREGU #### [address] [address] .URINALYSIS MICROSCOPIC Collected: 03/27/2018 Status: F Source: [facility]) 4:52 [facility] REPOSITORY TYPE CODE TESTS RESULT OUT OF RANGE REFERENCE UNITS LAB WBCUA(LOIN None Seen /hpf C) UA WBC None Seen LAB RBCUA(LOIN None Seen /hpf C) Unknown UA RBC 5-10 LAB EPIUA(LOIN None Seen /hpf C) Unknown UA Squam Epithelial 0-5 Performed By: #### UA, UAMICAO, PREGU #### [facility] [address] [place], [place] [address] PREGU Collected: 03/27/2018 Status: F Source: [facility] REPOS[facility] TYPE CODE TESTS RESULT OUT OF RANGE REFERENCE UNITS LAB PREGU(LOIN C) Test Negative Urine LAB PRUG1(LOIN C) Unknown test HCG not (u) int detected. Performed By: #### UA, UAMICAO, PREGU #### [facility] [address] [place], [place] [address] EMERGENCY DEPARTMENT Observed: 03/22/2018 Status: F Source: [place] SUMMARY 1:32 AM [facility] REPOSITORY [facility] Medical Records Department [address] [place] [address] Emergency Department Summary 03/22/18 0012 MR#: [id number] Acct: [id number] Name: ANA LUISA STRICKLAND Rep #: [id number] : 1995 22 From: Gennaro Wallace PCP: [...] 2. UTI This note was generated with Sassoration software. It may contain incorrect words, spelling, [...] your Primary Care Provider. Call [facility] ([phone]) or report to the closest Emergency Room. Call 911 if necessary. 03/22/18 0132 <Electronically signed by Gennaro Wallace> Date Gennaro Wallace Cosigner Signature (If Indicated): Date CC: Tomás Dickey MD URINALYSIS, COMPLETE Collected: 03/22/2018 Status: F Source: [place] 12:30 AM [facility] REPOSITORY Order Comment: Order Date: 03/22/18 How [...] MUCUS, URINE Performed By: #### L400.0001 #### [facility] [address] [place], [place], [address] CBC-COMPLETE BLOOD CNT Collected: 03/22/2018 Status: F Source: [place] NO DIFF 12:25 AM [facility] REPOSITORY TYPE CODE TESTS RESULT [...] MPV 10.7 Performed By: #### L100.0500 #### [facility] [address] [place], [address] BEDSIDE GLUCOSE Collected: 03/22/2018 Status: F Source: [place] 12:23 AM [facility] REPOSITORY TYPE CODE TESTS RESULT OUT OF RANGE REFERENCE UNITS LAB L501.080 70-110 mg/dL Normal BEDSIDE GLU 105 Result Comment: MANAGEMENT OF PATIENT CARE PER NURSING PROTOCOL Performed By: #### L501.080 #### [facility] Point of Care [address] [place] [address] EMERGENCY DEPARTMENT Observed: 03/08/2018 Status: F Source: [place] SUMMARY 10:13 PM [facility] REPOSITORY [facility] Medical Records Department [address] [place] [address] Emergency Department Summary 03/08/18 2209 MR#: [id number] Acct: [id number] Name: ANA LUISA STRICKLAND Rep #: [id number] : 1995 22 From: Suleiman Wen MD PCP: Toáms Dickey MD Status: REG ER - ER [...] 3. URI This note was generated with [employer] dictation software. It may contain incorrect words, [...] your Primary Care Provider. Call [facility] ([phone]) or report to the closest Emergency Room. Call 911 if necessary. 03/08/18 2471 <Electronically signed by Suleiman Wen MD> Date Suleiman Wen MD Cosigner Signature (If Indicated): Date CC: Tomás Dickey MD EMERGENCY DEPARTMENT Observed: 02/12/2018 Status: F Source: [place] SUMMARY 2:30 AM [facility] REPOSITORY [facility] Medical Records Department [address] [place] [address] Emergency Department Summary 02/12/18 0211 MR#: [id number] Acct: [id number] Name: ANA LUISA STRICKLAND Rep #: [id number] : 1995 22 From: Concepcion Gonzales MD [...] wrist sprain This note was generated with [employer] dictation software. It may contain incorrect words, [...] problems, contact your Primary Care Provider. Call [email or web address] Registry ([phone]) or report to the closest Emergency Room. Call 911 if necessary. 02/12/18229 <Electronically signed by Concepcion Gonzales MD> Date Concepcion Gonzales MD Cosigner Signature (If Indicated): Date CC: Tomás Dickey MD DISCHARGE INSTRUCTION Observed: 02/12/2018 Status: F Source: [place] 2:28 AM [facility] Medical Records Department [address] [place] [address] [place] [address] Discharge Instruction 02/12/18227 MR#: [id number] Acct: [id number] Name: DORIANANA LUISA Rep #: [id number] : 1995 22 From: Concepcion Gonzales MD [...] your Primary Care Provider. Call [facility] ([phone]) or report to the closest Emergency Room. Call 911 if necessary. 02/12/18227 <Electronically signed by Concepcion Gonzales MD> Date Concepcion Gonzales MD Cosigner Signature (If Indicated): Date CC: Tomás Dickey MD WRIST MIN 3 VIEWS Observed: 02/12/2018 Status: F Source: [place] 1:40 AM [facility] REPOSITORY [facility] Imaging Services [address] [place] [address] Wrist min 3 Views MR#: [id number] Acct: [id number] Name: ANA LUISA STRICKLAND Rep #: [id number] : 1995 F 22 From: Maged Delarosa MD PCP: Tomás Dickey MD Status: REG ER Study: Wrist min 3 Views Date of Exam: 02/12/18 Exam# [id number] Ordering Dr: Concepcion Gonzales MD STUDY: X-RAY [...] CC: Concepcion Gonzales MD; Tomás Dickey MD Cso: Signed HAND MIN 3 VIEWS Observed: 02/12/2018 Status: F Source: [place] 1:40 AM [facility] REPOSITORY [facility] Imaging Services [address] [place] [address] Hand Min 3 Views MR#: [id number] Acct: [id number] Name: DORIANANA LUISA Rep #: [id number] : 1995 F 22 From: Alex Dukes MD PCP: Tomás Dickey MD Status: REG ER Study: Hand Min 3 Views Date of Exam: 02/12/18 Exam# [id number] Ordering Dr: Concepcion Gonzales MD STUDY: X-RAY [...] CC: Concepcion Gonzales MD; Tomás Dickey MD Cso: Signed EMERGENCY DEPARTMENT Observed: 01/04/2018 Status: F Source: [place] SUMMARY 9:16 PM [facility] REPOSITORY [facility] Medical Records Department [address] [place] [address] Emergency Department Summary 01/04/18 2114 MR#: [id number] Acct: [id number] Name: ANA LUISA STRICKLAND Rep #: [id number] : 1995 22 From: Jerrod Kan DO [...] wrist sprain] This note was generated with [employer] dictation software. It may contain incorrect words, [...] problems, contact your Primary Care Provider. Call [email or web address] Registry ([phone]) or report to the closest Emergency Room. Call 911 if necessary. 01/04/182115 <Electronically signed by Jerrod Kan DO> Date Jerrod Kan DO Cosigner Signature (If Indicated): Date CC: Tomás Dickey MD DISCHARGE INSTRUCTION Observed: 01/04/2018 Status: F Source: [place] 9:16 PM [facility] Medical Records Department [address] [place] [address] Discharge Instruction 01/04/182115 MR#: [id number] Acct: [id number] Name: ANA LUISA STRICKLAND Rep #: [id number] : 1995 From: Jerrod Kan DO PCP: [...] your Primary Care Provider. Call [facility] ([phone]) or report to the closest Emergency Room. Call 911 if necessary. 01/04/182115 <Electronically signed by Jerrod Kan DO> Date Jerrod Kan DO Cosigner Signature (If Indicated): Date CC: Tomás Dickey MD DISCHARGE INSTRUCTION Observed: 12/29/2017 Status: F Source: [place] 4:19 AM [facility] Medical Records Department [address] [place] [address] Discharge Instruction 12/29/17 0418 MR#: [id number] Acct: [id number] Name: ANA LUISA STRICKLAND Rep #: [id number] : 1995 22 From: Jerrod Kan DO [...] your Primary Care Provider. Call [facility] ([phone]) or report to the closest Emergency Room. Call 911 if necessary. 12/29/17 0419 <Electronically signed by Jerrod Kan DO> Date Jerrod Kan DO Cosigner Signature (If Indicated): Date CC: Tomás Dickey MD EMERGENCY DEPARTMENT Observed: 12/29/2017 Status: F Source: [place] SUMMARY 4:18 AM [facility] Medical Records Department [address] [place] [address] Emergency Department Summary 12/29/17 0415 MR#: [id number] Acct: [id number] Name: ANA LUISA STRICKLAND Rep #: [id number] : 1995 22 From: Jerrod Kan DO [...] [Migrainous cephalgia-resolved] This note was generated with [employer] dictation software. It may contain incorrect words, [...] problems, contact your Primary Care Provider. Call [email or web address] Registry ([phone]) or report to the closest Emergency Room. Call 911 if necessary. 12/29/17 0418 <Electronically signed by Jerrod Kan DO> Date Jerrod Kan DO Cosigner Signature (If Indicated): Date CC: Tomás Dickey MD DOWNTIME REPORT Observed: 12/25/2017 Status: F Source: [place] 2:03 PM [facility] REPOSITORY [facility] Medical Records Department [address] [place] [address] Downtime Report MR#: [id number] Acct: [id number] Name: ANA LUISA STRICKLAND Rep #: [id number] : 1995 22 From: Ryder Cooper MD PCP: Tomás Dickey MD Status: DEP ER This patient was seen during an EMR downtime December 09, 2017 - December 16, 2017. This patient may have a combination of paper and electronic documentation or all paper documentation. All documentation is viewable within the e-chart portion of Ku for each patient visit. PROGRESS Observed: 12/12/2017 Status: COMPLETED Source: [place] 2:41 PM [facility] REPOSITORY HNO ID: [id number] Author: Ila Schwartz Service: (none) Author Type: Physician Type: Progress Notes Filed: 12/12/2017 2:42 PM Note Text: Please route this encounter to the EMU Scheduling Pool (P EMU) or PMU Scheduling Pool (P PMU) through LOS AND Follow up PHASE 1.0 AND 1.5 ORDER SYNOPSIS Patient: Ana Luisa Strickland ([id number]) (home) Insurance: Payor: [place] [employer] / Plan: [...] Epilepsy Pool (P Neur Ep Keto) via [employer] staff message) Please route this encounter to the EMU Scheduling pool (P EMU) or PMU Scheduling pool (P PMU) through LOS AND Follow up Scheduling coordinators: For all VNS patients being scheduled for NATHALIA, please schedule VNS off/on office visits. PROCEDURE Observed: 12/12/2017 Status: COMPLETED Source: [place] 12:45 PM [facility] REPOSITORY HNO ID: [id number] Author: Ila Schwartz Service: (none) Author Type: [...] risk factors: 1. Head Trauma no 2. PUBLIC RELATIONS DIRECTOR Infections (no) 3. Family History of Seizures (no) 4. Developmental Delay (yes) 5. Febrile Seizures (no) 6. PUBLIC RELATIONS DIRECTOR Tumors (optic glioma) 7. PUBLIC RELATIONS DIRECTOR Vascular Disease (no) 8. and early development: [...] (FLONASE) 50 mcg/actuation nasal spray Use 1 [place] in each nostril once daily. Disp: Rfl: [...] Paternal side - Ischemic Heart Disease Father [place] - Asthma Father Paternal side - Hypertension [...] EMU evaluation. Arlene Shah MD Clinical fellow [facility] STAFF PHYSICIAN NOTE OF PERSONAL INVOLVEMENT IN CARE ? I have reviewed the history and physical examination obtained and documented by the fellow and I personally participated in the martinez components. I have discussed the case and management of the patient's care. CARE COORDINATION: The majority of the visit was spent counseling and/or coordinating care for the patient. Ksow-jt-rleu time was 40 minutes Ila Schwartz MD December 16, 2017 11:53 PM CNOV Observed: 12/12/2017 Status: COMPLETED Source: [place] 12:40 PM [facility] REPOSITORY Office Visit ([id number]) ANA LUISA STRICKLAND ([id number]) 1995 F Date Time Provider Department 12/12/17 12:40 PM [facility] [id number] During your visit today, we recorded the [...] risk factors: 1. Head Trauma no 2. PUBLIC RELATIONS DIRECTOR Infections (no) 3. Family History of Seizures (no) 4. Developmental Delay (yes) 5. Febrile Seizures (no) 6. PUBLIC RELATIONS DIRECTOR Tumors (optic glioma) 7. PUBLIC RELATIONS DIRECTOR Vascular Disease (no) 8. and early development: [...] (FLONASE) 50 mcg/actuation nasal spray Use 1 [place] in each nostril once daily. Disp: Rfl: [...] Paternal side - Ischemic Heart Disease Father [place] - Asthma Father Paternal side - Hypertension [...] EMU evaluation. Arlene Shah MD Clinical fellow [facility] STAFF PHYSICIAN NOTE OF PERSONAL INVOLVEMENT IN CARE ? I have reviewed the history and physical examination obtained and documented by the fellow and I personally participated in the martinez components. I have discussed the case and management of the patient's care. CARE COORDINATION: The majority of the visit was spent counseling and/or coordinating care for the patient. Wsjg-xw-zgme time was 40 minutes Ila Schwartz MD December 16, 2017 11:53 PM Ila Schwartz MD 12/12/2017 2:44 PM Signed - Continue current anti-epileptic medications (Levetirectam/Keppra) - Please schedule epilepsy monitoring unit admission for diagnosis of spell. Referring Provider: LUAN MENDES [[id number]] Allergies As of Date: 12/12/2017 Noted Allergy [...] daily. FLUTICASONE 50 MCG/ACTUATION * Use 1 [place] in each nostril o* ADVIL PM ORAL [...] 12/12/2017 12:46 PM >> ANTONI MARTINEZ MA [facility] Dec 12, 2017 12:46 PM OFLOXACIN 0.3 % EAR DROPS >> Antoni Martinez Ma 12/12/2017 12:46 PM >> ANTONI MARTINEZ MA [facility] Dec 12, 2017 12:46 PM Problem List [...] 12/09/2017 Status: F Source: [place] 3:37 AM [facility] REPOSITORY [facility] Medical Records Department [address] [place] [address] Discharge Instruction 12/09/17 0336 MR#: [id number] Acct: [id number] Name: ANA LUISA STRICKLAND Rep #: [id number] : 1995 22 From: Tessa Mckinney DO [...] your Primary Care Provider. Call [facility] ([phone]) or report to the closest Emergency Room. Call 911 if necessary. 12/09/17 033 <Electronically signed by Tessa Mckinney DO> Date Tessa Mckinney DO Cosigner Signature (If Indicated): Date CC: Tomás Dickey MD URINALYSIS, COMPLETE Collected: 12/09/2017 Status: F Source: [place] 1:55 AM [facility] REPOSITORY Order Comment: How was Urine Obtained? [...] MUCUS, URINE Performed By: #### L400.0001 #### [facility] [address] [place], [address] CBC W/DIFF, AUTOMATED Collected: 12/09/2017 Status: F Source: [place] 1:50 AM [facility] REPOSITORY TYPE CODE TESTS RESULT [...] Lymph 2.12 Performed By: #### L100.0100 #### [facility] [address] [place], [address] COMPREHENSIVE METABOLIC Collected: 12/09/2017 Status: F Source: [facility] 1:50 AM [facility] REPOSITORY TYPE CODE TESTS RESULT [...] 8 Performed By: #### L500.4050, L501.2450 #### [facility] [address] [place], [address] LIPASE Collected: 12/09/2017 Status: F Source: [place] 1:50 AM [facility] REPOSITORY TYPE CODE TESTS RESULT OUT OF RANGE REFERENCE UNITS LAB L501.2450 73-393 U/L Normal LIPASE 114 Performed By: #### L500.4050, L501.2450 #### [facility] [place], [address] ,SERUM,HCG QUALI. Collected: Status: F Source: [place] 12/09/2017 1:50 AM [facility] REPOSITORY TYPE CODE TESTS RESULT OUT OF REFERENCE UNITS RANGE LAB L700.7000 0-9 Nonpreg Negative Normal HCGSQUAL NEGATIVE LAB L700.6700 =>Qualitative mIU/mL Normal HCG Qual < 1 triggr Performed By: #### L700.6800 #### [facility] [place], [address] ABDOMEN/PELVIS WITHOUT Observed: 12/09/2017 Status: F Source: [place] CONT 1:48 AM [facility] REPOSITORY [facility] Imaging Services [address] [place] [address] Abdomen/Pelvis without Cont MR#: [id number] Acct: [id number] Name: ANA LUISA STRICKLAND Rep #: [id number] : 1995 F 22 From: Rosa Maria Hanna MD PCP: Tomás Dickey MD Status: DEP Study: Abdomen/Pelvis without Cont Date of Exam: 12/09/17 Exam# [id number] Ordering Dr: Tessa Mckinney DO STUDY: CT [...] CC: Tessa Mckinney DO; Tomás Dickey MD Cso: Signed MRI BRAIN WO/W Observed: 11/28/2017 Status: F Source: [place] IVCON 2:21 PM [facility] [place] REPOSITORY * * *Final Report* * * [...] 12/12/2009, as detailed. No pathologic intracranial enhancement. Cso: RYANN Transcribe Date/Time: Nov 28 2017 2:26P Dictated by : CONNOR JASSO MD This examination was interpreted and the report reviewed and electronically signed by: YEMI LOUIS MD on Nov 28 2017 2:43PM EST [id number] Observed: 11/28/2017 Status: COMPLETED Source: [place] 2:19 PM [facility] REPOSITORY HNO ID: [id number] Author: Chacha Singh (Rt) Service: (none) Author Type: Garden Consultant Type: Progress Notes Filed: 11/28/2017 2:20 PM [...] PM PROGRESS Observed: 11/28/2017 Status: COMPLETED Source: [place] 11:48 AM [facility] REPOSITORY HNO ID: [id number] Author: Michell Aguilar) [place] Service: (none) Author Type: School Bus Driver/Mechanic Type: Progress Notes Filed: 11/28/2017 11:48 AM [...] US KIDNEY/BLADDER Observed: 11/28/2017 Status: F Source: [place] 11:47 AM [facility] REPOSITORY * * *Final Report* * * [...] Bladder: Bladder is unremarkable IMPRESSION: Negative exam Cso: RYANN Transcribe Date/Time: Nov 28 2017 2:57P Dictated by : JUSTO HUSTON DO This examination was interpreted and the report reviewed and electronically signed by: JUSTO HUSTON DO on Nov 28 2017 3:01PM EST [id number] DISCHARGE INSTRUCTION Observed: 11/21/2017 Status: F Source: [place] 1:12 AM [facility] Medical Records Department [address] [place] [address] Discharge Instruction 11/21/17 0111 MR#: [id number] Acct: [id number] Name: ANA LUISA STRICKLAND Rep #: [id number] : 1995 22 From: Jerrod Kan DO [...] your Primary Care Provider. Call [facility] ([phone]) or report to the closest Emergency Room. Call 911 if necessary. 11/21/17 0112 <Electronically signed by Jerrod Kan DO> Date Jerrod Kan DO Cosigner Signature (If Indicated): Date CC: Tomás Dickey MD EMERGENCY DEPARTMENT Observed: 11/21/2017 Status: F Source: [place] SUMMARY 1:11 AM [facility] REPOSITORY [facility] Medical Records Department [address] [place] [address] Emergency Department Summary 11/21/17 0108 MR#: [id number] Acct: [id number] Name: ANA LUISA STRICKLAND Rep #: [id number] : 1995 22 From: Jerrod Kan DO PCP: Tomás Dickey MD Status: REG ER - ER Visit Summary Date of Service: 11/21/17 Chief Complaint: [Abdominal pain History of Present Illness: The patient is a 22 F [presents to the emergency department complaint of abdominal discomfort for about 2-3 weeks. Patient states that around noon she ate a [employer] a chicken sandwich and since then she did not been feeling well. Patient planes of nausea. Patient this evening was at [employer] again using their Wi-Fi when she began [...] uncertain UTI] This note was generated with [employer] dictation software. It may contain incorrect words, [...] your Primary Care Provider. Call [facility] ([phone]) or report to the closest Emergency Room. Call 911 if necessary. 11/21/17 0111 <Electronically signed by Jerrod Kan DO> Date Jerrod Kan DO Cosigner Signature (If Indicated): Date CC: Tomás Dickey MD URINALYSIS, COMPLETE Collected: 11/21/2017 Status: F Source: [place] 12:26 AM [facility] REPOSITORY Order Comment: Order Date: 11/20/17 How [...] MUCUS, URINE Performed By: #### L400.0001 #### [facility] [address] [facility] [place], [address] ABDOMEN/PELVIS WITHOUT Observed: 11/21/2017 Status: F Source: [place] CONT 12:19 AM [facility] REPOSITORY [facility] Imaging Services [address] [place] [address] Abdomen/Pelvis without Cont MR#: [id number] Acct: [id number] Name: ANA LUISA STRICKLAND Rep #: [id number] : 1995 F 22 From: Rosa Maria Hanna MD PCP: Tomás Dickey MD Status: REG ER Study: Abdomen/Pelvis without Cont Date of Exam: 11/21/17 Exam# [id number] Ordering Dr: Jerrod Kan DO STUDY: CT [...] CC: Jerrod Kan DO; Tomás Dickey MD Cso: Signed CBC W/DIFF, AUTOMATED Collected: 11/20/2017 Status: F Source: [place] 11:35 PM [facility] REPOSITORY TYPE CODE TESTS RESULT [...] Lymph 2.52 Performed By: #### L100.0100 #### [facility] [address] [place], [address] COMPREHENSIVE METABOLIC Collected: 11/20/2017 Status: F Source: [facility] 11:35 PM [facility] REPOSITORY TYPE CODE TESTS RESULT [...] 7 Performed By: #### L500.4050, L501.2450 #### [facility] [address] [facility] [place], [address] LIPASE Collected: 11/20/2017 Status: F Source: [place] 11:35 PM [facility] REPOSITORY TYPE CODE TESTS RESULT OUT OF RANGE REFERENCE UNITS LAB L501.2450 73-393 U/L Normal LIPASE 141 Performed By: #### L500.4050, L501.2450 #### [facility] [address] [facility] [place], [place], [address] ,SERUM,HCG QUALI. Collected: Status: F Source: [place] 11/20/2017 11:35 PM [facility] REPOSITORY TYPE CODE TESTS RESULT OUT OF REFERENCE UNITS RANGE LAB L700.7000 0-9 Nonpreg Negative Normal HCGSQUAL NEGATIVE LAB L700.6700 =>Qualitative mIU/mL Normal HCG Qual < 1 triggr Performed By: #### L700.6800 #### [facility] [address] [facility] [place], [address] HIVRP Collected: 11/14/2017 Status: F Source: [facility] 1:56 PM [facility] REPOSITORY TYPE CODE TESTS RESULT OUT OF RANGE REFERENCE UNITS LAB HIVRO(LOIN Non-Reactive C) Rapid HIV 1/2 Antibody Non-Reactive LAB HIVROI(MANUEL NC) Unknown RHIV 1/2 Ab Int Non-Reactive LAB HIVAG(LOIN Non-Reactive C) HIV p24 Antigen Non-Reactive LAB P24AGI(MANUEL NC) Unknown HIV P24 Int Non-reactive LAB [id number](LOINC) QC RHIV Valid Performed By: #### HIVRP #### [address] [address] #### RPR, HEPAC #### [place] [address] RPR Collected: 11/14/2017 Status: F Source: [facility] 1:56 [facility] REPOSITORY TYPE CODE TESTS RESULT OUT OF [...] serum globulins. Performed By: #### HIVRP #### [place] [address] #### RPR, HEPAC #### [place] [address] HEPAC Collected: 11/14/2017 Status: F Source: [facility] 1:56 [facility] REPOSITORY TYPE CODE TESTS RESULT OUT OF [...] Int infection. Performed By: #### HIVRP #### [place] [id number] #### RPR, HEPAC #### [facility] [address] [place], [place] [address] URINALYSIS Collected: 11/13/2017 Status: F Source: [place] 12:49 PM [facility] REPOSITORY TYPE CODE TESTS RESULT OUT OF RANGE REFERENCE UNITS LAB UCOL Yellow Color Yellow LAB [facility] Clear Clarity Abnormal Cloudy Alert LAB UGLUC Negative mg/dL Glucose, Urine Negative LAB UBIL Negative Bilirubin, Urine Negative LAB UKET Negative Ketones, Urine Negative LAB USPG 1.005-1.030 Specific [place], Ur 1.023 LAB UHGB Negative Abnormal Hemoglobin/Blood, [...] Oxalate Crystal Performed By: #### UA #### [facility] [address] [place], [place] [address] CBC Collected: 11/13/2017 Status: F Source: [place] 10:54 AM [facility] REPOSITORY TYPE CODE TESTS RESULT [...] CBC, CMP, TSH, FT4, ALDREN, ACTH #### [facility] [address] [place], [place] [address] COMP METABOLIC PANEL Collected: 11/13/2017 Status: F Source: [place] 10:54 AM [facility] REPOSITORY TYPE CODE TESTS RESULT OUT OF REFERENCE UNITS RANGE LAB TP 6.3-8.0 g/dL Protein, Total 7.5 LAB ALB 3.9-4.9 g/dL Albumin 4.9 LAB CA 8.5-10.2 mg/dL Calcium, Total 9.1 LAB TBIL 0.2-1.3 mg/dL Bilirubin, Total 0.5 LAB ALKP 32-117 U/L Alkaline Phosphatase 52 LAB AST 13-35 U/L AST 20 LAB GLU 74-99 mg/dL Glucose 93 Result Comment: The [place] Diabetes Association (ADA) provides guidance for cutoff [...] Standards of Medical Care in Diabetes 2016, [place] [employer]. Diabetes Care. 2016.39(Suppl 1). LAB [...] CBC, CMP, TSH, FT4, ALDREN, ACTH #### [facility] [address] [place], [place] [address] TSH Collected: 11/13/2017 Status: F Source: [place] 10:54 AM [facility] REPOSITORY TYPE CODE TESTS RESULT [...] Clinical Practice Guideline. J Clin Endocrinol Metab, 2012:97:0254-6466. 2. Jonathan ROSADO. Overview of thyroid disease in . UpToDate. 2016. Accessed on December 23, 2015. Performed By: #### CBC, CMP, TSH, FT4, ALDREN, ACTH #### [facility] [address] [place], [place] [address] FREE T4 Collected: 11/13/2017 Status: F Source: [place] 10:54 AM [facility] REPOSITORY TYPE CODE TESTS RESULT OUT OF RANGE REFERENCE UNITS LAB FT4 0.9-1.7 ng/dL Free T4 1.5 Performed By: #### CBC, CMP, TSH, FT4, ALDREN, ACTH #### [facility] [address] [place], [place] [address] JOANNA RENIN RATIO Collected: 11/13/2017 Status: F Source: [place] 10:54 AM [facility] REPOSITORY TYPE CODE TESTS RESULT [...] CBC, CMP, TSH, FT4, ALDREN, ACTH #### [facility] [address] [place] [id number] ACTH Collected: 11/13/2017 Status: F Source: [place] 10:54 AM [facility] REPOSITORY TYPE CODE TESTS RESULT OUT OF RANGE REFERENCE UNITS LAB ACTH <47 pg/mL ACTH 29 Performed By: #### CBC, CMP, TSH, FT4, ALDREN, ACTH #### [facility] [address] [place], [place] [address] CNOV Observed: 11/13/2017 Status: COMPLETED Source: [place] 10:10 AM [facility] REPOSITORY Office Visit (OSITOADMN) ANA LUISA STRICKLAND ([id number]) 1995 F Date Time Provider Department 11/13/17 [...] (FLONASE) 50 mcg/actuation nasal spray Use 1 [place] in each nostril once daily. IBUPROFEN/DIPHENHYDRAMINE CIT [...] Department of Neuro Muscular of the Neurological [place] Side Panel Padder for Neurology [employer]erkships Clinical Small Battery Plate Assemblerpattern hand Faculty Appointment [facility] Faculty Appointment [facility] Neurological [place] [address] [place] [address]/ [phone] [place] [id number] Appt: [phone] 1. This office note has been dictated [...] physician Luan Mendes 11/13/2017 10:18 AM Signed [employer] SIGNUP Please consider signing up for the [facility] secure computer connection called [email or web address]. [email or web address] is free, allows you access to a portion of your medical record, lets you request appointment or medication refills, email providers, obtain reocrds/office medical notes, e visits, and lets you see when you are due for health maintenance. We can contact you via e-mail and release medical results directly to you through [email or web address] as well. You can sign up for [email or web address] by: ? Requesting an activation code online at [email or web address] Head Upright Tilt Test Contact Us Appointments [phone] Toll Free Chat Online with a Heart [...] blood pressure and heart rate on a abgdrd-gp-fbcmyd basis while the table is tilted in [...] Test Scheduling the tilt test The scheduling special education secretary will tell you when to report [...] Your blood pressure is measured on a gynvbm-mi-miuvcu basis, and your heart rate is displayed continuously on the monitor and recorded every minute. The data is recorded and stored in a computer. The motorized table is controlled by a nurse or sensor technician and will be tilted to different [...] test? Throughout the test, the nurse or sensor technician will ask you how you feel. [...] or other tests. Consultations with other health healthcare liaison may also be needed. If any of [...] procedures and may include instructions specific to [facility]. Please consult your physician for information pertaining to your testing POTS MANUAL TO HELP YOU Also for more POTS and autonomic education go to the [email or web address] and B[employer]. Under P tab of the library see and click the POTS tab for the POTS patient manual to read and print . [email or web address]/health/articles/glseghuz-bzdfqjvkequ-ajsbuawwgjw- -syndrome [facility] Postural Tachycardia Syndrome Information Page Synonym(s): Chronic [...] the short term. Whether they help in halfway is uncertain. Simple interventions such as adding [...] What research is being done? The National [place] of Neurological Disorders and Stroke (NINDS) and other Institutes of the National Institutes of Health (NIH) conduct research related to POTS in their laboratories at the NIH and support additional research through grants to major research institutions across the country. Much of this research focuses on finding better ways to prevent, treat, and ultimately cure disorders such as POTS. [facility] Patient Recruitment for Postural Tachycardia Syndrome Clinical Trials At [facility] Clinical Center Throughout the [place].S. and Worldwide NINDS Clinical Trials Organizations Column1 Column2 National Dysautonomia Research Foundation [address] [place] [address] [email or web address] Dysautonomia [facility] [address] [place] [address] [email or web address] Fax: [phone] Referring Provider: SELF [200] Allergies As of [...] disease due to hypertension [I12.9] Order(s):EEG LONG [3452761] Order #: [id number] CONSULT TO NEUROLOGY [9019] Order #: [id number]: 1 MRI BRAIN WO/W IVCON [9528877] Order #: [id number] FUTURE iv contrast (will be provided with [...] 0 COMP METABOLIC PANEL [SQCMP] Order #: [id number] FUTURE CBC [SQCBC] Order #: [id number] FUTURE TSH BLD [SQTSH] Order #: [id number] FUTURE NEURO CARDIO AUTONOMIC REFLEX W/WO TILT [7040086] Order #: [id number] T4 FREE/FREE THYROX [SQFT4] Order #: [id number] FUTURE METANEPHRINES 24H UR [SQUMETAN] Order #: [id number] FUTURE VMA 24 HR URINE [SQUVMA2] Order #: [id number] FUTURE US KIDNEY/BLADDER [6116567] Order #: [id number] FUTURE ALDOSTERONE/RENIN ACT RATIO [SQALDREN] Order #: [id number] FUTURE ACTH BLD [SQACTH] Order #: [id number] FUTURE UA CHEMSTRIP ONLY [SQUA] Order #: [id number] FUTURE Prescriptions as of 11/13/2017 Sig: LEVETIRACETAM [...] daily. FLUTICASONE 50 MCG/ACTUATION * Use 1 [place] in each nostril o* ADVIL PM ORAL [...] SIGNUP Please consider signing up for the [facility] secure computer connection called [email or web address]. [email or web address] is free, allows you access to a portion of your medical record, lets you request appointment or medication refills, email providers, obtain reocrds/office medical notes, e visits, and lets you see when you are due for health maintenance. We can contact you via e-mail and release medical results directly to you through [email or web address] as well. You can sign up for [email or web address] by: ? Requesting an activation code online at [email or web address] Head Upright Tilt Test Contact Us Appointments [phone] Toll Free Chat Online with a Heart [...] blood pressure and heart rate on a hrqtte-vm-zndmte basis while the table is tilted in [...] Test Scheduling the tilt test The scheduling special education secretary will tell you when to report [...] Your blood pressure is measured on a gmboxo-sz-envkiv basis, and your heart rate is displayed continuously on the monitor and recorded every minute. The data is recorded and stored in a computer. The motorized table is controlled by a nurse or sensor technician and will be tilted to different [...] test? Throughout the test, the nurse or sensor technician will ask you how you feel. [...] or other tests. Consultations with other health healthcare liaison may also be needed. If any of [...] procedures and may include instructions specific to [facility]. Please consult your physician for information pertaining to your testing POTS MANUAL TO HELP YOU Also for more POTS and autonomic education go to the [email or web address] and Biorasis. Under P tab of the library see and click the POTS tab for the POTS patient manual to read and print . https://[email or web address]/health/articles/sukvqnbu-txcjnavqkup-djxhyoo rdia-syndrome NIN Postural Tachycardia Syndrome Information Page [...] the short term. Whether they help in buttermaker continuous churn is uncertain. Simple interventions such as adding [...] What research is being done? The National [place] of Neurological Disorders and Stroke (NINDS) and other Institutes of the National Institutes of Health (NIH) conduct research related to POTS in their laboratories at the [facility] and support additional research through grants to major research institutions across the country. Much of this research focuses on finding better ways to prevent, treat, and ultimately cure disorders such as POTS. [facility] Patient Recruitment for Postural Tachycardia Syndrome Clinical Trials At [facility] Clinical Center Throughout the U.S. and Worldwide NINDS Clinical Trials Organizations Column1 Column2 National Dysautonomia Research Foundation [address] [place] [address] [email or web address] Dysautonomia [facility] [employer] [address] [place] [address] [email or web address] Fax: [phone] Prescriptions ordered this encounter Disp Refills Start [...] 11/13/17 PROGRESS Observed: 11/13/2017 Status: COMPLETED Source: [place] [address]:09 AM [facility] [place] REPOSITORY HNO ID: [id number] Author: Luan Mendes Service: (none) Author Type: [...] (FLONASE) 50 mcg/actuation nasal spray Use 1 [place] in each nostril once daily. IBUPROFEN/DIPHENHYDRAMINE CIT [...] Department of Neuro Muscular of the Neurological [place] Side Panel Padder for Neurology [employer] Clinical Small Battery Plate Assemblerpattern hand Faculty Appointment [facility] Faculty Appointment [facility] Neurological [address]/ [address] [place] [address] Appt: [phone] 1. This office note has been dictated [...] physician CNCO Observed: 11/13/2017 Status: COMPLETED Source: [place] 12:00 AM [facility] REPOSITORY Letter Text November 13, 2017 Ana Luisa Strickland [address] [facility] [id number] : 1995 The patient was seen today. She will need to have transportation to the Clinic to and from for her testing of the followin. EEG 2. Tilt table 3. Neurology Epilepsy Consult 4. Kidney ultrasound Sincerely, Luan Mendes D.O ELECTRONICALLY SIGNED November 13, 2017 Adult Neurology/ Board Certified Director of Autonomic Center Department of Neuro Muscular of the Neurological [place] Side Panel Padder for Neurology [facility]erks[facility] Clinical Small Battery Plate Assemblerpattern hand Faculty Appointment [facility] Faculty Appointment [facility] Clinical Small Battery Plate Assembler [facility] / TAX ID: [id number] [address]/ [address] [place] [address] Appt: [phone] EMERGENCY DEPARTMENT Observed: 11/10/2017 Status: F Source: [place] SUMMARY 2:52 AM [facility] REPOSITORY [facility] Medical Records Department [address] [place] [address] [place] [address] Emergency Department Summary 11/09/17 2336 MR#: [id number] Acct: [id number] Name: ANA LUISA STRICKLAND Rep #: [id number] : 1995 22 From: Bossman Parish MD [...] patient is scheduled to see neurology at [facility] on . She does follow with Dr. [...] up in place next week at the [facility] for neurology. I do for this patient can safely be discharged. She has had no further seizure activity here. She will be discharged home. Treatment Plan: [] Disposition: Discharge Impression: 1. Breakthrough seizure 2. Abdominal cramping This note was generated with [employer] dictation software. It may contain incorrect words, [...] problems, contact your Primary Care Provider. Call [email or web address] Registry ([phone]) or report to the closest Emergency Room. Call 911 if necessary. 11/10/17 0252 <Electronically signed by Bossman Parish MD> Date Bossman Parish MD Cosigner Signature (If Indicated): Date CC: Tomás Dickey MD ,URINE Collected: 11/10/2017 Status: F Source: [place] 12:30 AM [facility] REPOSITORY TYPE CODE TESTS RESULT OUT OF REFERENCE UNITS RANGE LAB L400.8000 Negative Normal HCGUQUAL Negative Result Comment: Very dilute urine specimens, as indicated by a low specific gravity, may not contain sales and merchandising representative levels of hCG. If is still suspected, a first morning urine specimen should be collected 48 hours later and tested. Performed By: #### L400.7600 #### [facility] [address] [facility] [place], [place], [id number] URINALYSIS, COMPLETE Collected: 11/10/2017 Status: F Source: [place] 12:30 AM [facility] REPOSITORY Order Comment: How was Urine Obtained? [...] Normal 1+ Performed By: #### L400.0001 #### [facility] [address] [facility] [address]. [place], [place], [id number] CBC W/DIFF, AUTOMATED Collected: 11/09/2017 Status: F Source: [place] 11:40 PM [facility] REPOSITORY TYPE CODE TESTS RESULT [...] Lymph 2.61 Performed By: #### L100.0100 #### [facility] [address] [place], [place], [address] COMPREHENSIVE METABOLIC Collected: 11/09/2017 Status: F Source: [place] [facility] 11:40 PM [facility] REPOSITORY TYPE CODE TESTS RESULT [...] 7 Performed By: #### L500.4050, L501.2450 #### [facility] [address] [place], [address] LIPASE Collected: 11/09/2017 Status: F Source: [place] 11:40 PM [facility] REPOSITORY TYPE CODE TESTS RESULT OUT OF RANGE REFERENCE UNITS LAB L501.2450 73-393 U/L Normal LIPASE 198 Performed By: #### L500.4050, L501.2450 #### [facility] [address] [place], [address] CPK TOTAL, CREATINE Collected: 11/09/2017 Status: F Source: [place] KINASE 11:40 PM [facility] REPOSITORY TYPE CODE TESTS RESULT OUT OF RANGE REFERENCE UNITS LAB L501.3620 26-192 U/L Normal CPK TOTAL 132 Performed By: #### L501.3620 #### [facility] [address] [place], [address] BRAIN/HEAD WITHOUT Observed: 11/09/2017 Status: F Source: [place] CONTRAST 11:35 PM [facility] REPOSITORY [facility] Imaging Services [address] [place] [address] Brain/Head without Contrast MR#: [id number] Acct: [id number] Name: ANA LUISA STRICKLAND Rep #: [id number] : 1995 F 22 From: Jessenia Tomlinson MD PCP: Tomás Dickey MD Status: REG ER Study: Brain/Head without Contrast Date of Exam: 11/10/17 Exam# [id number] Ordering Dr: Bossman Parish MD CT Head [...] CC: Bossman Parish MD; Tomás Dickey MD Cso: Signed CBC-COMPLETE BLOOD CNT Collected: 10/18/2017 Status: F Source: [place] NO DIFF 3:36 PM [facility] REPOSITORY TYPE CODE TESTS RESULT [...] MPV 11.2 Performed By: #### L100.0500 #### [facility] [address] [place], [place], [address] HEMOGLOBIN A1C Collected: 10/18/2017 Status: F Source: [place] 3:36 PM [facility] REPOSITORY TYPE CODE TESTS RESULT OUT OF RANGE REFERENCE UNITS LAB L501.9985 4.2-6.3 % Normal HGB A1C 4.7 Performed By: #### L501.9985 #### [facility] [address] [place], [address] COMPREHENSIVE METABOLIC Collected: 10/18/2017 Status: F Source: [place] CARD 3:36 PM [facility] REPOSITORY TYPE CODE TESTS RESULT [...] 6 Performed By: #### L500.4050, L501.9520 #### [facility] [address] [place], [address] THYROID STIM HORMONE Collected: 10/18/2017 Status: F Source: [place] (TSH) 3:36 PM [facility] REPOSITORY TYPE CODE TESTS RESULT OUT OF RANGE REFERENCE UNITS LAB L501.9520 0.358-3.74 uIU/mL Normal TSH 0.51 Performed By: #### L500.4050, L501.9520 #### [facility] [address] [place], [address] C-PEPTIDE Collected: 10/18/2017 Status: F Source: [place] 3:36 PM [facility] REPOSITORY TYPE CODE TESTS RESULT OUT OF RANGE REFERENCE UNITS LAB L3100.7750 1.1-4.4 ng/mL Normal C PEPTIDE 1.9 23372 Result Comment: C-Peptide reference interval is for fasting patients. Performed By: #### L3100.7750, L3310.0000 #### [facility] (refer to report for specific site) refer to report for address and phone number KEPPRA (LEVETIRACETAM) Collected: 10/18/2017 Status: F Source: [place] 3:36 PM [facility] REPOSITORY TYPE CODE TESTS RESULT OUT OF RANGE REFERENCE UNITS LAB L3310.0000 10.0-40.0 ug/mL Normal KEPPRA 17.6 Result Comment: Performed at: - [facility] [address] [id number] Nail Technician Teacher: Alphonso Haile PhD, Phone: [phone] Performed at: - [facility] [address] [id number] Nail Technician Teacher: Maged Malik MD, Phone: [phone] Performed By: #### L3100.7750, L3310.0000 #### [facility] (refer to report for specific site) refer to report for address and phone number EMERGENCY DEPARTMENT Observed: 10/07/2017 Status: F Source: [place] SUMMARY 5:30 PM [facility] REPOSITORY [facility] Medical Records Department [address] [place] [address] Emergency Department Summary 10/07/17 1523 MR#: [id number] Acct: [id number] Name: ANA LUISA STRICKLAND Rep #: [id number] : 1995 22 From: Jocelyn Palm MD [...] of neurofibromatosis This note was generated with [employer] dictation software. It may contain incorrect words, [...] your Primary Care Provider. Call [facility] ([phone]) or report to the closest Emergency Room. Call 911 if necessary. 10/07/17 1730 <Electronically signed by Jocelyn Palm MD> Date Jocelyn Palm MD Cosigner Signature (If Indicated): Date CC: TOMÁS DICKEY DISCHARGE INSTRUCTION Observed: 10/07/2017 Status: F Source: [place] 3:27 PM [facility] REPOSITORY [facility] Medical Records Department [address] [place] [address] Discharge Instruction 10/07/17 1526 MR#: [id number] Acct: [id number] Name: ANA LUISA STRICKLAND Iron Rep #: [id number] : 1995 22 From: Jocelyn Palm MD [...] your Primary Care Provider. Call [facility] ([phone]) or report to the closest Emergency Room. Call 911 if necessary. 10/07/17 1527 <Electronically signed by Jocelyn Palm MD> Date Jocelyn Palm MD Cosigner Signature (If Indicated): Date CC: TOMÁS DICKEY BEDSIDE GLUCOSE Collected: 10/07/2017 Status: F Source: [place] 2:13 PM [facility] REPOSITORY TYPE CODE TESTS RESULT OUT OF RANGE REFERENCE UNITS LAB L501.080 70-110 mg/dL Normal BEDSIDE GLU 91 Result Comment: MANAGEMENT OF PATIENT CARE PER NURSING PROTOCOL Performed By: #### L501.080 #### [facility] Point of Care [address] [place] [address] URINE DRUG SCREEN Collected: 10/07/2017 Status: F Source: [place] (VISTA) 12:30 PM [facility] REPOSITORY Order Comment: Order Date: 10/07/17 Has [...] Normal NEGATIVE Performed By: #### L505.5000 #### [facility] [address] [place], [address] URINALYSIS, COMPLETE Collected: 10/07/2017 Status: F Source: [place] 12:30 PM [facility] REPOSITORY Order Comment: Order Date: 10/07/17 Has [...] Normal AMORPHOUS Performed By: #### L400.0001 #### [facility] [address] [facility] [place], [place], [address] CT/NG WCH BY PCR Collected: 10/07/2017 Status: F Source: [place] 12:30 PM [facility] REPOSITORY Order Comment: Order Date: 10/07/17 Has pt arrived? Y TYPE CODE TESTS RESULT OUT OF RANGE REFERENCE UNITS LAB L8200.2100 Negative Normal Chlam Negative Trac PCR LAB L8200.2200 Negative Normal NG by Negative PCR Performed By: #### L8200.2000 #### [facility] [address] [facility] [place], [place], [address] CBC W/DIFF, AUTOMATED Collected: 10/07/2017 Status: F Source: [place] 12:20 PM [facility] REPOSITORY TYPE CODE TESTS RESULT [...] Lymph 2.06 Performed By: #### L100.0100 #### [facility] [address] [place], [address] BASIC METABOLIC Collected: 10/07/2017 Status: F Source: [place] PROFILE (BMP) 12:20 PM [facility] REPOSITORY TYPE CODE TESTS RESULT [...] GAP 8 Performed By: #### L500.2500 #### [facility] [address] [place], [address] ,SERUM,HCG QUALI. Collected: Status: C Source: [place] 10/07/2017 12:20 PM [facility] REPOSITORY TYPE CODE TESTS RESULT OUT OF REFERENCE UNITS RANGE LAB L700.6700 =>Qualitative mIU/mL Normal HCG Qual < 1 triggr LAB L700.7000 0-9 Nonpreg Negative Normal HCGSQUAL NEGATIVE Performed By: #### L700.6800 #### [facility] [address] [place], [address] KNEE 4 OR MORE Observed: 10/07/2017 Status: F Source: [place] VIEWS 12:02 PM [facility] REPOSITORY [facility] Imaging Services [address] [place] [address] Knee 4 or More Views MR#: [id number] Acct: [id number] Name: ANA LUISA STRICKLAND Rep #: [id number] : 1995 F 22 From: Hellen Oneill MD PCP: TOMÁS DICKEY Status: REG ER Study: Knee 4 or More Views Date of Exam: 10/07/17 Exam# [id number] Ordering Dr: Jocelyn Palm MD STUDY: X-RAY [...] , CC: Jocelyn Palm MD; TOMÁS DICKEY Cso: Signed BRAIN/HEAD WITHOUT Observed: 10/07/2017 Status: F Source: [place] CONTRAST 11:58 AM [facility] REPOSITORY [facility] Imaging Services [address] [place] [address] Brain/Head without Contrast MR#: [id number] Acct: [id number] Name: DORIANANA LUISA Iron Rep #: [id number] : 1995 F 22 From: Hellen Oneill MD PCP: TOMÁS DICKEY Status: REG ER Study: Brain/Head without Contrast Date of Exam: 10/07/17 Exam# [id number] Ordering Dr: Jocelyn Palm MD STUDY: CT [...] , CC: Jocelyn Palm MD; TOMÁS DICKEY Cso: Signed ORBIT FACE NECK W/WO Observed: 08/13/2017 Status: F Source: [place] CONTRAST 12:32 PM [facility] REPOSITORY [facility] Imaging Services [address] [place] [address] Orbit Face Neck W/WO Contrast MR#: [id number] Acct: [id number] Name: ANA LUISA STRICKLAND Rep #: [id number] : 1995 F 21 From: Simon Nails PCP: TOMÁS DICKEY Status: REG CLI Study: Orbit Face Neck W/WO Contrast Date of Exam: 08/13/17 Exam# [id number] Ordering Dr: Neyda Meek STUDY: MRI BRAIN [...] support , CC: Neyda Meek; TOMÁS DICKEY Cso: Signed ALLERGIES ALLERGIES DATE TYPE / NAME / CODE REACTION SEVERITY SOURCE CODE 07/19/2018 Drug acetaminophen/[id number] Unknown Unknown [place] Allergy/41 605(RXNORM) Formerly [facility] [id number]([facility]) Repository 07/19/2018 Drug ibuprofen/[id number]( Unknown Unknown [place] Allergy/41 RXNORM) Formerly [facility] 2857531([facility]) Repository 07/19/2018 Drug diphenhydramine/F0060 Unknown Unknown [place] Allergy/41 95906(RXNORM) Formerly [facility] 1631005([facility]) Repository 12/12/2017 Environ/42 SEASONAL ALLERGIES COUGH [facility] 5566480([facility]) Repository 11/20/2017 DRUG ACETAMINOPHEN UNKNOWN [address] [id number]([facility]) 11/20/2017 DRUG DIPHENHYDRAMINE UNKNOWN [address] 4812948([facility]) 11/20/2017 DRUG IBUPROFEN UNKNOWN [address] 6697380(SN Repository OMED [facility]) 11/10/2017 Drug No Known Unknown [place] Allergy/41 Allergies/[id number]( [facility] 6052543[facility] Repository NG/7585641 ACETAMINOPHEN [facility] 06([facility]) Repository NG/2469978 DIPHENHYDRAMINE [facility] 06([facility] Repository NG/8416796 IBUPROFEN [facility] 06([facility] Repository NG/1889239 SEASONAL ALLERGIES [facility] 06([facility]) Repository Drug NO KNOWN ALLERGIES [facility] Class/[address] [place] [address](SNOM Repository ED CT) ENCOUNTERS ENCOUNTERS ADMIT/DISCHARGE ACCOUNT NUMBER ADMITTING ENCOUNTER LOCATION SOURCE CLASS 07/19/2018/07/19/19 [id number] Emergency [address] ding:ED Repository 07/11/2018/07/11/19 [id number] Emergency [address] ding:ED Repository 06/22/2018/06/22/20 [id number] Emergency [place] ding:ED Repository 06/19/2018/06/20/20 [id number] Emergency [address] ding:ED Repository 05/31/2018/05/31/20 [id number] Emergency [address] ding:ED Repository 05/15/2018/05/15/20 [id number] Emergency [place] ding:ED Repository 05/11/2018/05/12/20 [id number] Emergency [place] ding:ED Repository 05/10/2018/05/10/20 [id number] Emergency [address] ding:ED Repository 05/02/2018/05/02/20 [id number] Emergency [address] ding:ED Repository 04/20/2018/04/21/20 [id number] Emergency [address] ding:ED Repository 04/12/2018/10/06 [id number] Emergency [place] ding:ED Repository 04/02/2018/04/03/20 [id number] Emergency [place] ding:ED Repository 03/27/2018/03/27/20 [id number] Emergency BBuilding:ER Kamran[address] Repository 03/21/2018/03/22/20 [id number] Emergency [place] ding:ED Repository 03/08/2018/03/08/20 [id number] Emergency [place] ding:ED Repository 02/12/2018/02/13/20 [id number] Emergency [place] ding:ED Repository 01/10/2018 [id number] CASSY, Inpatient [facility] MEDICAL Repository CENTERBuildi ng:RILEY 01/04/2018/01/05/20 [id number] Emergency [place] ding:ED Repository 12/29/2017/12/30/19 [id number] Emergency [place] ding:ED Repository 12/27/2017/12/31/19 [id number] Ambulatory [address] Repository 12/12/2017/12/13/19 [id number] Ambulatory [address] [place] Repository 12/12/2017 [id number] Ambulatory [facility] [place] Repository 12/09/2017/12/10/19 [id number] Emergency [place] ding:ED Repository 11/28/2017/12/04/19 [id number] Ambulatory [address] [place] Repository 11/28/2017/11/29/19 [id number] Ambulatory [address] Repository 11/20/2017/11/22/19 [id number] Emergency [place] ding:ED Repository 11/14/2017/11/15/19 [id number] Ambulatory [address] ding:[facility] Repository 11/13/2017 [id number] Ambulatory [facility] Repository 11/13/2017 [id number] Ambulatory [facility] Repository 11/09/2017/11/11/19 [id number] Emergency [address] ding:ED Repository 10/18/2017 [id number] Ambulatory General acute hospital ding:LAB Repository 10/07/2017/10/08/19 [id number] Emergency [address] ding:ED Repository 08/13/2017 [id number] Ambulatory General acute hospital ding:MRI Repository PAYERS PAYERS ENCOUNTER GUARANTOR PAYER SUBSCRIBER SOURCE 07/19/2018 ANA LUISA A Primary ANA LUISA A [place] [id number] Insurance:BUCKEYE GEARHARTDOB: [facility] [id number] PLANPolicy Number: Repository 64[address]Iok: 330 [id number] [phone] () Date:0383-13-59BW[address] [address]JW: 07/19/2018 Secondary NOT GIVENUNK [place] Insurance:SELF PAY [facility] Number: Effective Repository Date:2018-07-19 07/11/2018 ANA LUISA A Primary ANA LUISA A [place] [id number] S Insurance:BUCKEYE GEARHARTDOB: [facility] [id number] PLANPolicy Number: Repository 66339Rso: 330 [id number] [phone] () Date:8877-76-13KZ [address] [address]GY: 07/11/2018 Secondary NOT GIVENUNK [place] Insurance:SELF PAY [facility] Number: Effective Repository Date:2018-07-11 06/22/2018 ANA LUISA A Primary ANA LUISA A [place] [id number] 1/2 Insurance:BUCKEYE GEARHARTDOB: [facility] [id number] PLANPolicy Number: Repository [id number]: 330 [id number] [phone] (HP) Date:9540-13-44WR [address] [place] [address] 88315IJ: 06/22/2018 Secondary NOT GIVENUNK [place] Insurance:SELF PAY [facility] Number: Effective Repository Date:2018-06-22 06/19/2018 ANA LUISA A Primary ANA LUISA A [place] [id number] 1/2 Insurance:BUCKEYE GEARHARTDOB: [facility] [id number] [employer], [place] PLANPolicy Number: Repository 52765Vfs: 330 [id number] [phone] (HP) Date:4609-64-45XO [address] [place] [address] 76251DJ: 06/19/2018 Secondary NOT GIVENUNK [place] Insurance:SELF PAY [facility] Number: Effective Repository Date:2018-06-19 05/31/2018 ANA LUISA A Primary ANA LUISA A [place] [id number] 1/2 Insurance:BUCKEYE GEARHARTDOB: [facility] [id number] [place], [place] PLANPolicy Number: Repository [id number]: 330 [id number] [phone] () Date:1241-98-83NE [address] [place] [address] 34872ZV: 05/31/2018 Secondary NOT GIVENUNK [place] Insurance:SELF PAY [facility] Number: Effective Repository Date:2018-05-31 05/15/2018 ANA LUISA A Primary ANA LUISA A [place] [id number] 1/2 Insurance:BUCKEYE GEARHARTDOB: [facility] [id number] [employer], [place] PLANPolicy Number: Repository 58819Afm: 330 [id number] [phone] (HP) Date:3983-17-92TT [address] [place] [address] 84143YA: 05/15/2018 Secondary NOT GIVENUNK [place] Insurance:SELF PAY [facility] Number: Effective Repository Date:2018-05-15 05/11/2018 ANA LUISA A Primary ANA LUISA A [place] [id number] 1/2 Insurance:BUCKEYE GEARHARTDOB: [facility] [id number] [employer], [place] PLANPolicy Number: Repository [id number]: 330 [id number] [phone] (HP) Date:7898-96-50FC [address] [place] [address] 94595FV: 05/11/2018 Secondary NOT GIVENUNK [place] Insurance:SELF PAY [facility] Number: Effective Repository Date:2018-05-11 05/10/2018 ANA LUISA A Primary ANA LUISA A [place] [id number] 1/2 Insurance:OBC GEARHARTDOB: [facility] [id number] [employer], [place] Number: Repository 95781Qvn: 330 [id number] [phone] (HP) Date:0681-49-48SD [address]QXULMSQA, [place] [address]SF: 05/10/2018 Secondary NOT GIVENUNK [place] Insurance:SELF PAY [facility] Number: Effective Repository Date:2018-05-10 05/02/2018 ANA LUISA A Primary ANA LUISA A [place] [id number] 1/2 Insurance:BUCKEYE GEARHARTDOB: [facility] [id number] [place], [place] PLANPolicy Number: Repository 27804Fyo: 330 [id number] [phone] (HP) Date:0550-18-54SW [address] [place] [address] 72340FO: 05/02/2018 Secondary NOT GIVENUNK [place] Insurance:SELF PAY [facility] Number: Effective Repository Date:2018-05-02 04/20/2018 ANA LUISA A Primary ANA LUISA A [place] [id number] 1/2 Insurance:BUCKEYE GEARHARTDOB: [facility] [id number] [facility] Repository 18250Tfg: 330 [id number] [phone] (HP) Date:9894-00-87AU [address] [place] [address] 56801YO: 04/20/2018 Secondary NOT GIVENUNK [place] Insurance:SELF PAY [facility] Number: Effective Repository Date:2018-04-20 04/12/2018 ANA LUISA A Primary ANA LUISA A [place] [id number] Insurance:BUCKEYE GEARHARTDOB: [facility] [id number] Island College HospitalPolicy Number: Repository 13809Hma: 330 [id number] [phone] () Date:3746-00-35SS [address] [place] [address] 75386WP: 04/12/2018 Secondary NOT GIVENUNK [place] Insurance:SELF PAY [facility] Number: Effective Repository Date:2018-04-12 04/02/2018 ANA LUISA A Primary ANA LUISA A [place] [id number] Insurance:BUCKEYE GEARHARTDOB: [facility] [id number] Number: Repository 78488Vvh: 330 [id number] [phone] () Date:7966-74-75KZ [address] [place] [address] 45507ZL: 04/02/2018 Secondary NOT GIVENUNK [place] Insurance:SELF PAY [facility] Number: Effective Repository Date:2018-04-02 03/27/2018 ANA LUISA A Primary ANA LUISA A [facility] GEARHARTDOB: Insurance:BUCKEYE GEARHARTDOB: [facility] [id number] HEALTH PLANPolicy [id number] Repository [address] Number: 07/09 [place], [place] [id number] [address]~[facility] Date:2018-03-27 51119Hck: [phone] [email or web address] [id number] [phone] el: [phone]) Name:XPO Box (HP) [address] [place], [place] [address]isaías CATALINO [phone] (WP) (HP)Tel: [phone]: (WP) [phone] 03/21/2018 ANA LUISA A Primary ANA LUISA A [place] [id number] 1/2 Insurance:BUCKEYE GEAREZEKIELTDOB: [facility] [id number], [place] PLANPolicy Number: Repository 56544Gaa: 330 [id number] [phone] () Date:1952-29-56WD [address] [place] [address] 23694BA: 03/21/2018 Secondary NOT GIVENUNK [place] Insurance:SELF PAY [facility] Number: Effective Repository Date:2018-03-21 03/08/2018 ANA LUISA A Primary ANA LUISA A [place] [id number] 1/2 Insurance:BUCKEYE GEAREZEKIELTDOB: [facility] [id number], [place] PLANPolicy Number: Repository 24892Fip: 330 [id number] [phone] () Date:6898-14-97YA [address] [place] [address] 69087BS: 03/08/2018 Secondary NOT GIVENUNK [place] Insurance:SELF PAY [facility] Number: Effective Repository Date:2018-03-08 02/12/2018 ANA LUISA A Primary ANA LUISA A [place] [id number] 1/2 Insurance:BUCKEYE GEAREZEKIELTDOB: [facility] [id number] [employer], [place] PLANPolicy Number: Repository 22126Zsn: 330 [id number] [phone] () Date:3351-00-82XJ [address] [place] [address] 44469NY: 02/12/2018 Secondary NOT GIVENUNK [place] Insurance:[facility]LF [facility]Y [facility] Number: Effective Repository Date:2018-02-12 01/10/2018 ANA LUISA A Primary ANA LUISA A [facility] GEARHARTDOB: Insurance:BUCKEYE [facility] GEARHARTDOB: [facility] N MEDICAIDPolicy [id number] Repository [facility] Number: [place], [place] [id number] [address]Qyv: (330) Date: [id number] (HP) 01/04/2018 ANA LUISA A Primary ANA LUISA A [place] [id number] N Insurance:BUCKEYE GEARHARTDOB: [facility] [id number], [place] [facility] Number: Repository 87659Ldw: 330 [id number] [phone] (HP) Date:0680-66-88KJ [address] [place] [address] 28985SE: 01/04/2018 Secondary NOT GIVENUNK [place] Insurance:SELF PAY [facility] Number: Effective Repository Date:2018-01-04 12/29/2017 ANA LUISA A Primary ANA LUISA A [place] [id number] N Insurance:BUCKEYE GEARHARTDOB: [facility] [id number], [place] [facility]ANPol[facility] Number: Repository [id number]: (330 [id number] [phone] (HP) Date:6249-83-52ZA [address] [place] [address] 59933WM: 12/29/2017 Secondary NOT GIVENUNK [place] Insurance:SELF PAY [facility] Number: Effective Repository Date:2017-12-29 12/09/2017 ANA LUISA A Primary ANA LUISA A [place] [id number] N Insurance:BUCKEYE GEARHARTDOB: [facility] [id number] Mississippi Medical CenterPolic Number: Repository 91681Yxw: 330 [id number] [phone] (HP) Date:6781-09-55KZ [address] [place] [address] 26163UH: 12/09/2017 Secondary NOT GIVENUNK [place] Insurance:SELF PAY [facility] Number: Effective Repository Date:2017-12-09 11/20/2017 ANA LUISA A Primary ANA LUISA A [place] [id number] N Insurance:BUCKEYE GEARHARTDOB: [facility] [id number], [place] PLANPolic Number: Repository 83518Ira: 330 [id number] [phone] () Date:7026-95-62QK [address] [place] [address] 39458OC: 11/20/2017 Secondary NOT GIVENUNK [place] Insurance:SELF PAY [facility] Number: Effective Repository Date:2017-11-20 11/14/2017 ANA LUISA A Primary ANA LUISA A [facility]ITAL[facility]: Insurance:BUCKEYE GEARHARTDOB: [facility] N HEALTH PLANPoly [id number] Repository [place] Number: [address] [place], [place] [id number] [address]~[facility] Date:2017-11-14 81318Trx: [phone] [email or web address] [id number] [phone] el: [phone]) Name:ANDRIAO Samina () [address] [place] [address] [phone] (WP) (HP)Tel: [phone]: (SP) [phone] 11/09/2017 ANA LUISA A Primary ANA LUISA A [place] [id number] N Insurance:BUCKEYE GEARHARTDOB: [facility] [id number], [place] PLANPolchi health [facility] Number: Repository 89002Nke: (140) [id number] [phone] () Date:6798-91-60DN [address] [place] [address] 07742KK: 11/09/2017 Secondary NOT GIVENUNK [place] Insurance:SELF PAY [facility] Number: Effective Repository Date:2017-11-09 10/18/2017 Ana Luisa A Primary Ana Luisa A [place] [id number] N Insurance:BUCKEYE GearhartDOB: [facility] [id number] PLANPolicy Number: Repository 25[address]Fha: 330 [id number] [phone] (HP) Date:8560-35-75GB [address] [place] [address] 77856NP: 10/18/2017 Secondary NOT GIVENUNK [place] Insurance:SELF PAY [facility] Number: Effective Repository Date:2017-10-18 10/07/2017 Ana Luisa A Primary Ana Luisa A [place] [id number] N Insurance:BUCKEYE GearhartDOB: [facility] [id number] PLANPolicy Number: Repository 73718Jiz: 330 [id number] [phone] () Date:4636-77-20RQ [address] [place] [address] 59310EB: 10/07/2017 Secondary NOT GIVENUNK [place] Insurance:SELF PAY [facility] Number: Effective Repository Date:2017-10-07 08/13/2017 Ana Luisa A Primary Ana Luisa A [place] [id number] N Insurance:BUCKEYE GearhartDOB: [facility] [id number] PLANPolicy Number: Repository 14071Nud: (205) [id number] [phone] (HP) Date:7714-63-39RM [address] [place] [address] 20086LY: 08/13/2017 Secondary NOT GIVENUNK [place] Insurance:SELF PAY [facility] Number: Effective Repository Date:2017-08-06
== END 2018-06-22 16:29 | disposition home or self-care (01) ==
PROVIDERS: Emergency Provider Emergency Medicine; Family Provider Family Medicine; PCP Family Medicine
DX: A08.39 Other viral enteritis (principal); G40.909 Epilepsy, unspecified, not intractable, without status epilepticus; F32.9 Major depressive disorder, single episode, unspecified; F41.9 Anxiety disorder, unspecified; Z72.0 Tobacco use; Z79.899 Other long term (current) drug therapy
CPT/HCPCS: 96361; 96374; 99283; J7030; A4216; J2405

== ENCOUNTER 2018-07-11 01:08 | Emergency (ER) | payer MEDICAID, SELFPAY ==
[2018-07-11 01:09] VITALS: BP 184/114; PULSE 129; RESP 16; TEMP 37.1; O2SAT 97; BMI 24.5
--- NOTE | 2018-07-11 01:25 | ED.VISSUMM ---
- ER Visit Summary Date of Service: 07/11/18 Chief Complaint: [] Vaginal discharge History of Present Illness: The patient is a 22 F [] complaining of vaginal discharge for the last 2 weeks. Gradual onset intermittent. Current severity is mild. She is having no bleeding. It is white. It is not super thick. She is having some urinary frequency and itching. She is not sure if she has a yeast infection. She is sexually active with no protection. No previous STDs in the past. Comes in for further evaluation. Physical Examination: [] Vital signs reviewed General: Well-nourished well-developed Head: Normocephalic atraumatic Eyes: Pupils equal round and reactive to light extraocular movements intact ENT: TMs clear no hemotympanum no trauma Neck: Nontender full range of motion Cardiovascular: Regular rate rhythm no murmurs normal S1-S2 Respiratory: No distress clear to auscultation bilaterally chest nontender Abdomen: Soft nontender nondistended normal bowel sounds no masses Pelvic exam: Normal speculum exam. Normal bimanual exam. Back: Nontender no CVA tenderness Extremities: Nontender active range of motion ?4 extremities no trauma Skin: Normal color no trauma Neuro alert oriented cranial nerves II through XII intact normal strength sensation reflexes Test Results: [] Emergency Department Course and Treatment: [] Urine analysis shows no evidence of urinary tract infection. Her pelvic exam is normal. I did send gonorrhea and chlamydia testing from her urine. This will be back in 2 days. I do not think she needs treated. She is reassured. If comes back positive she will be notified. There is no evidence of trichomonas in my opinion. I do not think she has bacterial vaginosis with a normal pelvic exam. Treatment Plan: [] Disposition: [] Impression: [] Urinary frequency Reported vaginal discharge?resolved This note was generated with [employer] dictation software. It may contain incorrect words, spelling, and punctuation that were not noted in review of the chart prior to signing ED Disposition - Plan for ED Patient: Chief Complaint: Complaint Referrals: Olvin Dickey MD [Primary Care Provider] -
[2018-07-11 01:33] LABS: Color, Urine Yellow (Yellow); Glucose, Dipstick Normal (Normal); Ketone-Dipstick Negative (Negative); Leukocyte Esterase-Dipstick 25 /ul (Negative); Nitrite-Dipstick Negative (Negative); Occult Blood-Urine 150 /ul (Negative); Protein-Dipstick 15 mg/dl (Negative); Urine Bilirubin Dipstick Negative (Negative); Urine Clarity Clear (Clear); Urine Urobilinogen Normal (Normal)
[2018-07-11 01:40] LABS: Squamous Epithelial Cells - UA 5-10 SEEN /hpf (5-10); White Blood Cells 0-5 SEEN /hpf (0-5)
[2018-07-11 01:41] LABS: Bacteria RARE /hpf (None Seen); Mucous, Urine 1+ /hpf (<or=2+); Red Blood Cells-Urine 0-5 SEEN /hpf (0-5)
--- NOTE | 2018-07-11 01:59 | ED.DEP ---
ED Disposition - Plan for ED Patient: Disposition: Home or Assisted Living Chief Complaint: Complaint Instructions: ED Blank Diagnosis Form Referrals: Olvin Dickey MD [Primary Care Provider] -
[2018-07-11 02:04] VITALS: BP 149/127; PULSE 88; RESP 16; O2SAT 98
[2018-07-11 03:19] LABS: Chlamydia Trachomatis by PCR Negative (Negative); Neisserai gonorrhoeae by PCR Negative (Negative); Probe Check PASS; Sample Adequacy Control PASS; Specimen Processing Control PASS
== END 2018-07-11 02:08 | disposition home or self-care (01) ==
LOC: ED 02:07
PROVIDERS: Emergency Provider Emergency Medicine; Family Provider Family Medicine; PCP Family Medicine
DX: R35.0 Frequency of micturition (principal)
CPT/HCPCS: 81001; 87491; 87591; 99282

== ENCOUNTER 2018-07-19 14:54 | Emergency (ER) | payer MEDICAID, SELFPAY ==
[2018-07-19 14:56] VITALS: BP 129/92; PULSE 106; RESP 18; TEMP 36.2; O2SAT 99; BMI 24.5
--- NOTE | 2018-07-19 15:10 | ED.DCSUM_ITS ---
- ER Visit Summary Date of Service: 07/19/18 Chief Complaint: Headache History of Present Illness: The patient is a 22 F who presents with a headache. She started having this headache approximately 11 hours ago. It is similar to her prior migraine headaches. It radiates down into her neck. She has nausea without vomiting. She does have photophobia. No trauma. She has a history of chronic migraines. She follows with Dr. Bryant, who is been giving her Botox injections for her migraines. She has not followed up with him for a while and she thinks this is why her migraines are recurring. She denies fevers. Physical Examination: Vital signs reviewed. HEENT exam unremarkable. Heart is regular rate and rhythm without murmurs. Lungs are clear to auscultation. Abdomen is soft and nontender. Extremities reveal no edema. Skin exam normal. Neurologic exam normal. Test Results: None performed Emergency Department Course and Treatment: Patient was given Toradol and Phenergan. She feels improved. She will continue home medications. I will give her neurology follow-up Treatment Plan: [] Disposition: Discharge Impression: Migraine headache This note was generated with [employer] software. It may contain incorrect words, spelling, and punctuation that were not noted in review of the chart prior to signing ED Disposition - Plan for ED Patient: Chief Complaint: Headache Referrals: Olvin Dickey MD [Primary Care Provider] -
[2018-07-19] MEDS: Ketorolac 60 MG/2 ML Vial IM (15:31)
[2018-07-19] MEDS: proMETHazine 25 MG/ML Syringe IM (15:31)
--- NOTE | 2018-07-19 15:57 | ED.DEP ---
ED Disposition - Plan for ED Patient: Disposition: Home or Assisted Living Chief Complaint: Headache Instructions: ED Headache Migraine Referrals: Olvin Dickey MD [Primary Care Provider] - Kelly Bryant MD [STAFF PHYSICIAN] -
[2018-07-19 16:02] VITALS: BP 143/90; PULSE 91; RESP 16; O2SAT 99
== END 2018-07-19 16:03 | disposition home or self-care (01) ==
PROVIDERS: Emergency Provider Emergency Medicine; Family Provider Family Medicine; PCP Family Medicine
DX: G43.909 Migraine, unspecified, not intractable, without status migrainosus (principal); Z72.0 Tobacco use; Z79.899 Other long term (current) drug therapy
CPT/HCPCS: 96372; 99282

== ENCOUNTER 2018-08-05 15:49 | Emergency (ER) | payer MEDICAID, SELFPAY ==
[2018-08-05 15:50] VITALS: BP 156/101; PULSE 96; RESP 14; TEMP 36.6; O2SAT 98; BMI 24.8
--- NOTE | 2018-08-05 15:55 | RAD_ITS ---
STUDY: X-RAY - LEFT WRIST REASON FOR EXAM: Female, 22 years old. Fall. Pain. History of surgery left forearm for deformity. TECHNIQUE: 3 view(s) of the wrist were obtained. COMPARISON: Left wrist, May 10, 2018. 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 Normal radiocarpal articulation. There is mild medial subluxation of the carpi. Normal carpal bones. Normal carpal articulations. Normal carpometacarpal articulation of the thumb. Normal second through fifth carpometacarpal articulations. Normal visualized metacarpal bones. The soft tissue structures are unremarkable. RAD/Wrist min 3 Views IMPRESSION: 1. No evidence for acute fracture or dislocation. 2. Stable hypoplasia of the distal ulna. Electronically Signed: Laz Sr DO at 16:09 EST Tel [phone], Service support ,
--- NOTE | 2018-08-05 16:56 | ED.VISSUMM ---
- ER Visit Summary Date of Service: 08/05/18 Chief Complaint: Left wrist injury History of Present Illness: The patient is a 22 F who was walking with her friend when she slipped on the ice and fell onto her friend. She notes pain in the left wrist. She notes chronic pain in the wrist. She denies any other injuries Physical Examination: Afebrile vital signs are stable Gen: Well-nourished well-developed Head: Normocephalic atraumatic Eyes: Perrl EOMI ENT: TMs clear no rhinorrhea moist mucous membranes Neck: Supple no lymphadenopathy no JVD nontender CVS: Regular rate rhythm no murmurs normal S1-S2 Respiratory: No distress clear to auscultation bilaterally chest nontender Abdomen: Soft nontender nondistended normal bowel sounds no masses Back: Nontender Extremity: Tender to palpation of the left wrist. There is chronic deformities. Skin: Normal color no rash Neuro: alert orientated ?3 CN II-XII intact normal strength sensation reflexes gait cerebellar Psych: Normal affect normal mood Test Results: X-rays did not reveal any acute fracture or dislocation. Chronic changes were noted. Emergency Department Course and Treatment: Patient will be placed in a Velcro wrist splint. Follow-up 10-14 days if not improved. Rice therapy Impression: 1. Left wrist sprain This note was generated with [employer] dictation software. It may contain incorrect words, spelling, and punctuation that were not noted in review of the chart prior to signing ED Disposition - Plan for ED Patient: Disposition: Home or Assisted Living Chief Complaint: Fall Instructions: ED Sprain Wrist Referrals: Olvin Dickey MD [Primary Care Provider] - 10-14 Days if not better
== END 2018-08-05 17:27 | disposition home or self-care (01) ==
LOC: ED 17:16
PROVIDERS: Emergency Provider Emergency Medicine; Family Provider Family Medicine; PCP Family Medicine
DX: S63.502A Unspecified sprain of left wrist, initial encounter (principal); Z72.0 Tobacco use; W00.0XXA Fall on same level due to ice and snow, initial encounter; Y93.01 Activity, walking, marching and hiking; Y92.89 Other specified places as the place of occurrence of the external cause; Y99.8 Other external cause status
CPT/HCPCS: 73110; 99283

== ENCOUNTER 2018-08-26 10:20 | Emergency (ER) | payer MEDICAID, SELFPAY ==
[2018-08-26 10:21] VITALS: BP 181/88; PULSE 109; RESP 16; TEMP 36.6; O2SAT 99; BMI 25.0
[2018-08-26 10:25] VITALS: TEMP 36.4
--- NOTE | 2018-08-26 10:49 | RAD_ITS ---
STUDY: X-RAY CHEST REASON FOR EXAM: Female, 22 years old. Productive cough. TECHNIQUE: PA and lateral views of the chest. COMPARISON: None. FINDINGS: The lungs are clear and expanded. There is no demonstrated pleural abnormality. Normal size heart. Normal mediastinum and shiloh. Normal visualized pulmonary arteries. Normal visualized aortic arch and descending thoracic aorta. Normal visualized thoracic spine. Normal visualized ribs, clavicles, and shoulders. There is no demonstrated abnormality of the visualized soft tissue structures of the upper abdomen. RAD/Chest PA and Lateral IMPRESSION: Normal x-ray examination of the chest. Electronically Signed: Sal Wolff MD at 11:50 EST , Service support ,
[2018-08-26] MEDS: Naproxen 250 MG Tablet 500 MG PO (10:56)
[2018-08-26 11:39] VITALS: TEMP 36.9
--- NOTE | 2018-08-26 11:39 | ED.VISSUMM ---
- ER Visit Summary Date of Service: 08/26/18 Chief Complaint: Productive cough white disc creamy sputum times 3 weeks History of Present Illness: The patient is a 22 F presents with productive cough for the past 3 weeks. He is a smoker 1/2 pack/day. Denies fever, chills night sweats. She does report rhinorrhea, congestion and sore throat. She has no other complaints. Review of systems otherwise negative. Physical Examination: Blood pressure is elevated. Heart rate is 109. Head is atraumatic normocephalic. Pupils are equal round reactive. Extraocular muscles are intact. TMs are pearly white with landmarks noted. Nares patent with boggy nasal mucosa and minimal clear drainage. Posterior pharynx without erythema or exudate. Uvula is midline. There is no dysphonia or dysphasia. Trachea is midline. There is no stridor with auscultation of the neck. Heart is regular without murmur, gallop or rub. S1 and S2 are normal. Lungs are clear to auscultation with good movement of air bilaterally. No skin lesions or rash noted. Neuro exam is nonfocal. Test Results: Two-view chest x-ray interpreted by me as negative. Cardiac silhouette normal. Mediastinum normal. Lung parenchyma normal. Osseous structures are normal. Emergency Department Course and Treatment: Because patient is a smoker has had a productive cough for 3 weeks will obtain chest x-ray. Treatment Plan: Doxycycline 100 mg twice daily for 7 days and stop smoking Disposition: Discharged home Impression: Purulent bronchitis Tobacco use This note was generated with [employer] dictation software. It may contain incorrect words, spelling, and punctuation that were not noted in review of the chart prior to signing ED Disposition - Plan for ED Patient: Disposition: Home or Assisted Living Instructions: ED Upper Resp Infec Abx Tx Prescriptions: Doxycycline 100 mg PO BID #14 cap Referrals: Olvin Dickey MD [Primary Care Provider] - 1 Week if not improving Additional Instructions: It is in your best interest to stop smoking. Because you are smoker he may have a cough for 4 weeks.
[2018-08-26 11:49] VITALS: BP 133/97; PULSE 98; RESP 18; O2SAT 99
== END 2018-08-26 11:49 | disposition home or self-care (01) ==
PROVIDERS: Emergency Provider Emergency Medicine; Family Provider Family Medicine; PCP Family Medicine
DX: J41.1 Mucopurulent chronic bronchitis (principal); F17.200 Nicotine dependence, unspecified, uncomplicated; Z79.899 Other long term (current) drug therapy
CPT/HCPCS: 71046; 99283

== ENCOUNTER 2018-10-04 20:56 | Emergency (ER) | payer MEDICAID, SELFPAY ==
[2018-10-04 20:56] VITALS: BP 136/98; PULSE 104; RESP 16; TEMP 36.8; O2SAT 99; BMI 24.5
--- NOTE | 2018-10-04 21:50 | ED.DCSUM_ITS ---
- ER Visit Summary Date of Service: 10/04/18 Chief Complaint: Migraine headache History of Present Illness: The patient is a 23 F who presents for migraine headache. Patient states she has history of chronic migraines and is currently out of her medications. Headache started this morning and is all over, and is no different from her typical headaches. Patient has associated nausea and vomiting and photophobia. No head injury. Patient states she is having an anxiety attack now along with her migraine because she ran out of her medications 3 days ago. She takes Xanax 3 times a day, Keppra twice daily. She gets Botox every 3 months for her migraines. Patient also was on an antidepressant which she cannot member the name of, and chart review shows that it is Celexa. Patient states she cannot get her medications filled until Saturday. Denies any other symptoms, including fever, chest pain, shortness of breath, vision changes, weakness or numbness in the arms or legs, or other complaints. Physical Examination: Vital signs: afebrile, hemodynamically stable, no hypoxia on room air General: well nourished, well developed, in no distress, sitting in bed with the lights off mildly anxious Skin: warm, dry, no rash, no pallor HEENT: normocephalic and atraumatic; PERRL, EOMI, moist mucous membranes Cardiovascular: regular rate and rhythm without murmurs, no peripheral edema, 2+ pulses all distal extremities Respiratory: No increased work of breathing, lungs are clear to auscultation bilaterally, no rales, rhonchi or wheezing Abdominal: Abdomen is soft, nontender with normoactive bowel sounds, no guarding or rebound, no masses MSK: Moves all extremities, no deformities, normal strength Neuro: Awake and alert, oriented ?4. No facial droop, sensation and motor function intact and symmetric Test Results: Medications Given Discontinued Medications Diphenhydramine HCl (Benadryl) 25 mg IV X1 ONE Stop: 10/04/18 21:49 Last Admin: 10/04/18 22:12 Dose: 25 mg Sodium Chloride () 1,000 mls @ 999 mls/hr IV .Q1H1M ONE Stop: 10/04/18 22:48 Last Admin: 10/04/18 22:12 Dose: 999 mls/hr Ketorolac Tromethamine (Toradol) 15 mg IV X1 ONE Stop: 10/04/18 21:49 Last Admin: 10/04/18 22:13 Dose: 15 mg Metoclopramide HCl (Reglan) 10 mg IV X1 ONE Stop: 10/04/18 21:49 Last Admin: 10/04/18 22:13 Dose: 10 mg Emergency Department Course and Treatment: Patient was given a migraine cocktail for her headache. Chart review does show that she is on scheduled Xanax 3 times daily, Keppra twice daily, and Celexa once daily. [facility] report shows that patient's last Xanax prescription for 30 days was filled on September 08, that she should not be out of her medications yet. On reevaluation, patient felt much better and had complete resolution of her headache and her anxiety symptoms. She was offered a dose of her Keppra since she states she is out of it, and she declined. Patient was discharged home with symptoms resolved. Treatment Plan: [] Disposition: [] Impression: Migraine headache This note was generated with [employer] dictation software. It may contain incorrect words, spelling, and punctuation that were not noted in review of the chart prior to signing ED Disposition - Plan for ED Patient: Disposition: Home or Assisted Living Instructions: ED Headache Migraine Referrals: Olvin Dickey MD [Primary Care Provider] - 1-2 Days if not improving Additional Instructions: Please make sure to get your medications on Saturday as planned and to take them as prescribed. If you have any worsening of your condition or any new concerning symptoms, please return immediately to the emergency department for another evaluation.
[2018-10-04] MEDS: 0.9% Normal Saline 1,000 ML 999 ML IV (22:12)
[2018-10-04] MEDS: DiphenhydrAMINE 50 MG/ML Syringe 25 MG IV (22:12)
[2018-10-04] MEDS: Metoclopramide 10 MG/2 ML Vial IV (22:13)
[2018-10-04] MEDS: Ketorolac 30 MG/ML Syringe 15 MG IV (22:13)
== END 2018-10-04 23:07 | disposition home or self-care (01) ==
PROVIDERS: Emergency Provider Emergency Medicine; Family Provider Family Medicine; PCP Family Medicine
DX: G43.909 Migraine, unspecified, not intractable, without status migrainosus (principal); F41.9 Anxiety disorder, unspecified; R56.9 Unspecified convulsions; Z79.899 Other long term (current) drug therapy
CPT/HCPCS: 96361; 96374; 96375; 99282; J7030; A4216

== ENCOUNTER 2018-11-25 14:44 | Emergency (ER) | payer MEDICAID, SELFPAY ==
[2018-11-25 14:44] VITALS: BP 142/96; PULSE 97; RESP 14; TEMP 36.8; O2SAT 97; BMI 26.4
--- NOTE | 2018-11-25 14:59 | VDUE_ITS ---
Reason For Study: Swelling Left Proximal Left jugular vein is spontaneous, widely patent, phasic, with no intraluminal echogenicity noted. Left subclavian vein is spontaneous, widely patent, phasic, with no intraluminal echogenicity noted. Left Arm Left axillary vein is spontaneous, patent, phasic, competent, compressible and demonstrates augmentation. Left brachial vein is compressible. Left cephalic vein is compressible. Left basilic vein is compressible. Left Lower Arm Left radial vein is compressible. Left ulnar vein is compressible. Patient Safety Prelim to ED. Interpretation Summary No evidence for acute deep venous thrombosis[left] upper extremity with patent and compressible cephalic and basilic veins. Ordering Physician: Jocelyn Palm Referring Physician: Kei Monroe M.D. Performed By: Lala Amador RVT ?
--- NOTE | 2018-11-25 14:59 | RAD_ITS ---
STUDY: X-RAY - LEFT ELBOW REASON FOR EXAM: Female, 23 years old. Swelling in left elbow. History of deformities. TECHNIQUE: 3 view(s) of the elbow. COMPARISON: May 10, 2018 FINDINGS: There is generalized osteopenia. There is stable deformity of the left elbow with subluxation of the radial head and marked deformation of the radial head. 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 Normal radiocapitellar and ulnotrochlear articulations. The soft tissue structures are unremarkable. RAD/Elbow min 3 Views IMPRESSION: Stable appearance of the elbow with no acute finding. Electronically Signed: Juanjose Qureshi MD at 15:53 EDT , Service support ,
[2018-11-25] MEDS: Naproxen 500 MG Tablet PO (15:24)
--- NOTE | 2018-11-25 16:14 | ED.VISSUMM ---
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 She presents with a 2 to 3-day history of left forearm swelling and increased pain around her elbow. She denies any known injury. Physical Examination: Vital signs unremarkable. Patient sitting upright in bed no acute distress. Left upper extremity examination reveals chronic deformity at the elbow with multiple old surgical scars. She does have full range of motion. She has mild edema throughout the left forearm. There is diffuse tenderness throughout the forearm and elbow. There is no overlying skin erythema or excessive warmth. Test Results: Left elbow x-rays are stable with no acute findings. Venous ultrasound of the arm reveals no DVT. Emergency Department Course and Treatment: Patient is treated with naproxen. Arm was wrapped in an Rodger wrap. Treatment Plan: [] Disposition: Discharge Impression: Left elbow sprain This note was generated with [employer] dictation software. It may contain incorrect words, spelling, and punctuation that were not noted in review of the chart prior to signing ED Disposition - Plan for ED Patient: Disposition: Home or Assisted Living Instructions: ED Sprain Elbow Prescriptions: Naproxen [Naprosyn] 500 mg PO BID PRN PRN #20 tablet PRN Reason: Pain Referrals: Olvin Dickey MD [Primary Care Provider] - 1 Week if not improving
== END 2018-11-25 16:23 | disposition home or self-care (01) ==
PROVIDERS: Emergency Provider Emergency Medicine; Family Provider Family Medicine; PCP Family Medicine
DX: S53.402A Unspecified sprain of left elbow, initial encounter (principal); J45.909 Unspecified asthma, uncomplicated; R56.9 Unspecified convulsions; F41.9 Anxiety disorder, unspecified; F32.9 Major depressive disorder, single episode, unspecified; Z72.0 Tobacco use; Z79.899 Other long term (current) drug therapy; X58.XXXA Exposure to other specified factors, initial encounter; Y93.89 Activity, other specified; Y92.89 Other specified places as the place of occurrence of the external cause; Y99.8 Other external cause status
CPT/HCPCS: 73080; 93971; 99283

== ENCOUNTER 2019-02-20 16:07 | Emergency (ER) | payer MEDICAID, SELFPAY ==
[2019-02-20 16:09] VITALS: BP 161/89; PULSE 117; RESP 16; TEMP 36.9; O2SAT 99; BMI 26.3
--- NOTE | 2019-02-20 16:27 | ED.DCSUM_ITS ---
History of Present Illness Chief Complaint: General Illness Detail of Chief Complaint: Right ear pain, migraine, possible UTI Current Severity: Moderate Maximum Severity: Moderate Narrative: Patient presents with right ear pain is been ongoing for several weeks. She recently saw Dr. Gallo was diagnosed with an ear infection. She is currently on drops and oral antibiotics but she does not remember the name. She states that she now has a migraine from her ear. She also has dysuria and thinks she may have a UTI. Past Medical History - Allergies and Home Meds Allergies/Adverse Reactions: Allergies acetaminophen [From Tylenol] Adverse Reaction (Verified 02/20/19 16:08) Unknown states cannot take with seizure meds diphenhydramine [From Benadryl] Adverse Reaction (Verified 02/20/19 16:08) Unknown states cannot take with seizure meds ibuprofen [From Motrin] Adverse Reaction (Verified 02/20/19 16:08) Unknown states cannot take with seizure meds Primary Care Physician: Huber Gallo MD [STAFF PHYSICIAN] - 3-5 Days Olvin Dickey MD [Primary Care Provider] - Prior records reviewed: Yes Past Medical History: - - Reviewed Lives: With Family Smoking Status: Current every day smoker Review of Systems General: Denies: Chills, Fever Eyes: Denies: Visual changes - bilaterally ENT: Reports: Right ear pain Cardiovascular: Denies: Chest pain Respiratory: Denies: Dyspnea Gastrointestinal: Reports: Nausea. Denies: Abdominal pain, Vomiting Genitourinary: Reports: Dysuria, Frequency Musculoskeletal: Denies: Back pain Neurological: Reports: Headache Endocrine: Denies: Polydipsia Hematologic: Denies: Easy bruising Allergy: Denies: Uticaria Physical Exam Vital Signs/Narrative: Vital Signs Temp Pulse Resp BP Pulse Ox 02/20/19 16:09 98.4 F 117 H 16 161/89 H 99 Inital Vital Signs reviewed: Yes General: Well nourished, Well developed Head: Normocephalic Eyes: Perrl, EOMI ENT: Moist mucous membranes, - - Right external ear canal edematous with discharge. Neck: Supple Cardiovascular: Regular rate, Regular rhythm Respiratory: No distress, CTA bilaterally Abdomen: Soft, Nontender Extremities: - - Chronic left elbow/forearm deformity Skin: Normal color Neurological: Alert, Oriented x3 Psychological: Normal affect Diagnostic/Tx/Re-eval Laboratory Results 02/20/19 02/20/19 16:35 16:35 Urine Color Yellow Urine Clarity Clear Urine pH 6.0 Ur Specific [place] 1.025 Urine Protein 15 H Urine Glucose (UA) Normal Urine Ketones Negative Urine Occult Blood 50 H Urine Nitrite Negative Urine Bilirubin Negative Urine Urobilinogen 1 H Ur Leukocyte Esterase 25 H Urine RBC 0-5 SEEN Urine WBC 0 SEEN Ur Squamous Epith Cells 0-5 SEEN Urine Bacteria RARE Urine Mucus 0 SEEN Urine Test Negative - Medical Decision Making Patient was given Toradol, Reglan, Benadryl, fluids for migraine for repeat evaluation right ear was cleaned out as best as possible. Ear wick is placed that she does have a significant amount of edema. It does appear she is on Ciprodex drops and she is to continue this. She is to follow-up with Dr. Gallo early next week. ED Disposition - Plan for ED Patient: Disposition: Home or Assisted Living Diagnosis: Right otitis externa, Migraine Prescriptions: Ciprofloxacin HCl/Dexameth [Ciprodex Otic Suspension] 5 drop OTIC BID #1 bottle Referrals: Olvin Dickey MD [Primary Care Provider] - Huber Gallo MD [STAFF PHYSICIAN] - 3-5 Days
[2019-02-20 16:44] VITALS: RESP 16
[2019-02-20 16:44] LABS: Mucous, Urine 0 SEEN /hpf (<or=2+); White Blood Cells 0 SEEN /hpf (0-5)
[2019-02-20] MEDS: DiphenhydrAMINE 50 MG/ML Syringe 25 MG IV (16:45)
[2019-02-20] MEDS: 0.9% Normal Saline 1,000 ML 999 ML IV (16:45)
[2019-02-20 16:47] LABS: Color, Urine Yellow (Yellow); Glucose, Dipstick Normal (Normal); Ketone-Dipstick Negative (Negative); Leukocyte Esterase-Dipstick 25 /ul (Negative); Nitrite-Dipstick Negative (Negative); Occult Blood-Urine 50 /ul (Negative); Protein-Dipstick 15 mg/dl (Negative); Specific Gravity, Urine 1.025 (1.002-1.030); Urine Bilirubin Dipstick Negative (Negative); Urine Clarity Clear (Clear); Urine Urobilinogen 1 mg/dl (Normal)
[2019-02-20] MEDS: Metoclopramide 10 MG/2 ML Vial IV (16:47)
[2019-02-20] MEDS: Ketorolac 30 MG/ML Syringe IV (16:49)
[2019-02-20 16:52] LABS: Internal QC Validated? YES +Cl - CLEAR BKGD; Pregnancy, Urine Negative Negative
[2019-02-20 17:13] LABS: Bacteria RARE /hpf (None Seen); Red Blood Cells-Urine 0-5 SEEN /hpf (0-5); Squamous Epithelial Cells - UA 0-5 SEEN /hpf (5-10)
[2019-02-20 18:34] VITALS: BP 124/77; PULSE 94; RESP 17; O2SAT 100
--- NOTE | 2019-02-20 18:34 | ED.RN ---
IV DC'ED, CATHETER INTACT, SMALL GAUZE DRESSING PLACED. DISCHARGE INSTRUCTIONS GIVEN TO AND REVIEWED WITH PATIENT, PATIENT DENIES QUESTIONS OR CONCERNS AND VOICES UNDERSTANDING OF DISCHARGE INSTRUCTIONS. PT AMBULATES OUT OF ROOM WITHOUT DIFFICULTY.
== END 2019-02-20 18:35 | disposition home or self-care (01) ==
PROVIDERS: Emergency Provider Emergency Medicine; Family Provider Family Medicine; PCP Family Medicine
DX: G43.909 Migraine, unspecified, not intractable, without status migrainosus (principal); H60.91 Unspecified otitis externa, right ear; R30.0 Dysuria; F17.200 Nicotine dependence, unspecified, uncomplicated
CPT/HCPCS: 81001; 81025; 96361; 96374; 96375; 99284; J7030

== ENCOUNTER → 2019-02-26 | Outpatient (CLI) | payer MEDICAID, SELFPAY ==
[2019-02-20 16:09] VITALS: BMI 26.3
== END | disposition home or self-care (01) ==
LOC: LABSPEC 15:30
PROVIDERS: Family Provider Family Medicine; PCP Family Medicine; Referring Provider Otolaryngology; Visit Provider Otolaryngology
DX: H92.10 Otorrhea, unspecified ear (principal)
CPT/HCPCS: 87070; 87075; 87077; 87106; 87205

== ENCOUNTER 2019-03-06 19:07 | Emergency (ER) | payer MEDICAID, SELFPAY ==
[2019-03-06 19:07] VITALS: BP 134/95; PULSE 106; RESP 15; TEMP 36.6; O2SAT 99; BMI 26.5
--- NOTE | 2019-03-06 19:35 | ED.VIS.GEN ---
History of Present Illness Chief Complaint: Ear Problem Narrative: Patient presenting secondary to right ear drainage. Patient states that she has been dealing with a chronic otitis externa on the right and has been seeing ear nose and throat for this. She has been on eardrops intermittently over the course of the last 4 weeks. She states that she has had increased drainage and pain recently. Its been associated with a mild cough. No fevers. No significant headaches associated with this. She reports that there has been drainage from the ear, and pus. Patient states that she has been [place] recently, but reports that she did get her head wet. Past Medical History - Allergies and Home Meds Allergies/Adverse Reactions: Allergies acetaminophen [From Tylenol] Adverse Reaction (Verified 03/06/19 19:11) Unknown states cannot take with seizure meds diphenhydramine [From Benadryl] Adverse Reaction (Verified 03/06/19 19:11) Unknown states cannot take with seizure meds ibuprofen [From Motrin] Adverse Reaction (Verified 03/06/19 19:11) Unknown states cannot take with seizure meds Primary Care Physician: Olvin Dickey MD [Primary Care Provider] - Past Medical History: - - Migraines and anxiety Smoking Status: Current every day smoker Review of Systems All systems negative except as indicated General: Denies: Fever ENT: Reports: Right ear pain Respiratory: Reports: Cough Physical Exam Vital Signs/Narrative: Vital Signs Temp Pulse Resp BP Pulse Ox 03/06/19 19:07 97.9 F 106 H 15 134/95 H 99 General: Well nourished, Well developed, No Acute Distress Head: Normocephalic, Atraumatic, - - No evidence of mastoid tenderness Eyes: EOMI ENT: - - Right ear shows evidence of external canal swelling with drainage. Difficult to assess the patient's TM. Pain with manipulation of the tragus. Neck: Supple, Nontender Cardiovascular: Regular rate, Regular rhythm, No murmurs Respiratory: No distress, CTA bilaterally, Chest nontender Skin: Normal color, No rash Neurological: Alert, Oriented x3, Cranial nerves II-XII grossly intact, Normal Strength, Normal Sensation Psychological: Normal affect, Normal Mood Diagnostic/Tx/Re-eval - Medical Decision Making Patient presented with ear discomfort. There is no evidence of mastoiditis. Patient has evidence of otitis externa. She already sees ear nose and throat, she was recommended to follow-up there. She will be placed on ofloxacin. ED Disposition - Plan for ED Patient: Disposition: Home or Assisted Living Diagnosis: Otitis externa Instructions: EXTERNAL EAR INFECTION (Adult) Referrals: Huber Gallo MD [STAFF PHYSICIAN] - 5-7 Days
[2019-03-06 20:01] VITALS: RESP 14
== END 2019-03-06 20:01 | disposition home or self-care (01) ==
PROVIDERS: Emergency Provider Emergency Medicine; Family Provider Family Medicine; PCP Family Medicine
DX: H60.91 Unspecified otitis externa, right ear (principal); F17.200 Nicotine dependence, unspecified, uncomplicated
CPT/HCPCS: 99282

== ENCOUNTER 2019-03-22 19:41 | Emergency (ER) | payer MEDICAID, SELFPAY ==
[2019-03-22 19:42] VITALS: BP 136/95; PULSE 118; RESP 15; TEMP 36.9; O2SAT 98; BMI 26.4
--- NOTE | 2019-03-22 20:03 | CT_ITS ---
STUDY: CT BRAIN WITHOUT CONTRAST REASON FOR EXAM: Female, 23 years old. Injury. RADIATION DOSAGE (If Supplied By Facility): CTDIvol = ( 44.99 ) mGy, DLP = ( 728.62 ) mGycm TECHNIQUE: Transaxial CT imaging of the brain was performed without administration of intravenous contrast material. Individualized dose optimization techniques were used for this CT. COMPARISON: 11/10/2017 FINDINGS: Normal soft tissue structures. Normal calvarium. Normal size ventricles and extra-axial spaces for the patient's age. Normal white matter tracts of the cerebral hemispheres. Normal basal ganglia and thalami. Normal brainstem. Normal cerebellum. There is no intracranial hemorrhage. There are no findings of an acute ischemic infarction. Normal visualized paranasal sinuses. Right mastoiditis. CT/Brain/Head without Contrast IMPRESSION: Normal unenhanced CT scan of the brain. Right mastoiditis. Electronically Signed: Eleazar Gomez MD at 20:46 EDT , Service support ,
[2019-03-22] MEDS: Ondansetron 4 MG/2 ML Vial IV (20:18)
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
[2019-03-22] MEDS: Ketorolac 15 MG/ML Vial IV (21:31)
[2019-03-22 21:52] VITALS: PULSE 98; RESP 18; O2SAT 99
== END 2019-03-22 21:52 | disposition home or self-care (01) ==
PROVIDERS: Emergency Provider Emergency Medicine; Family Provider Family Medicine; PCP Family Medicine
DX: S06.0X1A Concussion with loss of consciousness of 30 minutes or less, initial encounter (principal); G40.909 Epilepsy, unspecified, not intractable, without status epilepticus; F17.200 Nicotine dependence, unspecified, uncomplicated; Y04.2XXA Assault by strike against or bumped into by another person, initial encounter; Y93.89 Activity, other specified; Y92.89 Other specified places as the place of occurrence of the external cause; Y99.8 Other external cause status
CPT/HCPCS: 70450; 96374; 96375; 99283; A4216; J2405

== ENCOUNTER → 2019-04-03 | Outpatient (CLI) | payer MEDICAID, SELFPAY ==
[2019-03-22 19:42] VITALS: BMI 26.4
== END | disposition home or self-care (01) ==
LOC: LABSPEC 16:36
PROVIDERS: Family Provider Family Medicine; PCP Family Medicine; Referring Provider Otolaryngology; Visit Provider Otolaryngology
DX: H92.10 Otorrhea, unspecified ear (principal)
CPT/HCPCS: 87070; 87075; 87076; 87077; 87205

== ENCOUNTER 2019-04-04 16:28 | Emergency (ER) | payer MEDICAID, SELFPAY ==
[2019-04-04 16:30] VITALS: BP 158/99; PULSE 108; RESP 16; TEMP 36.6; O2SAT 98; BMI 26.7
--- NOTE | 2019-04-04 16:59 | RAD_ITS ---
STUDY: X-RAY - LEFT RADIUS AND ULNA REASON FOR EXAM: Female, 23 years old. Pain. Patient has known congenital dysplasias. TECHNIQUE: 2 view(s) of the forearm. COMPARISON: 05/10/2018. FINDINGS: No definite change or acute abnormality. No fractures. No dislocations. Again seen are marked deformities of the radius and especially the ulna where there is marked atrophy of the mid to distal ulnar shaft. Grossly normal soft tissues. Grossly normal visualized wrist and hand. RAD/Forearm 2 Views IMPRESSION: No change and no acute abnormality. Electronically Signed: Eleazar Gomez MD at 17:50 EDT , Service support ,
--- NOTE | 2019-04-04 17:03 | ED.DCSUM_ITS ---
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 She states that over the last 2 weeks, she has had pain to this area which she is never had in the past. She states that she had a seizure and fell may be 2 weeks ago. Since that time has had pain in her elbow and proximal forearm. Saw her primary care physician in 1 to follow-up with orthopedic physician. No x-rays have been obtained as of this time. She is been having more pain after lifting a 35 pound child decided to come in. <Isatu Flores - Last Filed: 04/04/19 17:41> Chief Complaint: Upper Extremity Injury Past Medical History Surgical History: noncontributory Smoking Status: Current every day smoker <Eddie Nagy - Last Filed: 04/04/19 17:03> <Isatu Flores - Last Filed: 04/04/19 17:41> - Allergies and Home Meds Allergies/Adverse Reactions: Allergies acetaminophen [From Tylenol] Adverse Reaction (Verified 04/04/19 16:34) Unknown states cannot take with seizure meds diphenhydramine [From Benadryl] Adverse Reaction (Verified 04/04/19 16:34) Unknown states cannot take with seizure meds ibuprofen [From Motrin] Adverse Reaction (Verified 04/04/19 16:34) Unknown states cannot take with seizure meds Primary Care Physician: Olvin Dickey MD [Primary Care Provider] - Olvin Martinez MD [STAFF PHYSICIAN] - Review of Systems General: Denies: Chills, Fever, Sweats Eyes: Denies: Visual changes - bilaterally, Diplopia ENT: Denies: Rhinorrhea, Sore throat Cardiovascular: Denies: Chest pain, Palpitations Respiratory: Denies: Dyspnea, Cough, Dyspnea on exertion Gastrointestinal: Denies: Abdominal pain, Nausea, Vomiting, Diarrhea, Melena, Hematochezia Genitourinary: Denies: Dysuria, Hematuria, Frequency Musculoskeletal: Reports: - - L elbow pain. Denies: Back pain, Extremity Pain Skin: Denies: Rash, Wounds Neurological: Denies: Headache, Weakness, Numbness <Isatu Flores - Last Filed: 04/04/19 17:41> Physical Exam Vital Signs/Narrative: Vital Signs Temp Pulse Resp BP Pulse Ox 04/04/19 16:30 97.8 F 108 H 16 158/99 H 98 <Eddie Nagy - Last Filed: 04/04/19 17:03> Vital Signs/Narrative: Vital Signs Temp Pulse Resp BP Pulse Ox 04/04/19 16:30 97.8 F 108 H 16 158/99 H 98 General: Well nourished, Well developed, No Acute Distress Head: Normocephalic, Atraumatic Eyes: Perrl, EOMI ENT: Moist mucous membranes, No rhinorrhea Neck: Supple, Nontender Cardiovascular: Regular rate, Regular rhythm, No murmurs Respiratory: No distress, CTA bilaterally, Chest nontender Abdomen: Soft, Nontender, Nondistended, Normal bowel sounds Back: Nontender, Normal Inspection Extremities: No edema, - - Tender to palpation over the lateral left elbow. She does have chronic swelling of this elbow due to congenital abnormality. Normal range of motion. No edema, erythema, ecchymosis. Radial pulse 2+. Normal sensation. Full range of motion of left hand and wrist. Normal strength. Skin: Normal color, No rash Neurological: Alert, Oriented x3, Cranial nerves II-XII grossly intact, Normal Strength, Normal Sensation Psychological: Normal affect, Normal Mood <Isatu Flores - Last Filed: 04/04/19 17:41> Diagnostic/Tx/Re-eval - Medical Decision Making Seen with our PA. 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 She states that she had a seizure and fell may be 2 weeks ago. Since that time has had pain in her elbow and proximal forearm. Saw her primary care physician in 1 to follow-up with orthopedic physician. No x-rays have been obtained as of this time. She is been having more pain after lifting a 35 pound child decided to come in. No exam vital signs are stable afebrile. Lungs are clear to auscultation. Heart regular rhythm. Left arm of the shoulder is nontender. The elbow is deformed which is chronic. Is tender on the posterior lateral side. She also has tenderness along the proximal half of her left forearm. It appears that she has a radius but no ulna. She has bowing of the forearm which is chronic. She does have a radial pulse. 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 And has sensation of the hand. Otherwise exam is unremarkable. X-rays will be obtained about the left elbow and left forearm. There is to be read by us. <Eddie Nagy - Last Filed: 04/04/19 17:03> - Medical Decision Making Patient presents to the ED with left elbow and forearm pain. 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 She is unsure about injury. X-ray indicates a bowed radius and incompletely formed ulna. There is no evidence of fracture or dislocation. At this time, think it is safe for the patient be discharged home. She is given orthopedics for referral. She was advised to take Tylenol and anti- inflammatories for analgesia. Advised on signs/symptoms to return to the ED. She is provided discharge instructions and agreeable to plan. Impression: Left elbow pain. Disposition: Home stable <Isatu Flores - Last Filed: 04/04/19 17:41> ED Disposition <Eddie Nagy - Last Filed: 04/04/19 17:03> <Isatu Flores - Last Filed: 04/04/19 17:41> - Plan for ED Patient: Disposition: Home or Assisted Living Diagnosis: Left elbow pain Instructions: Arthralgia Referrals: Olvin Dickey MD [Primary Care Provider] - Olvin Martinez MD [STAFF PHYSICIAN] -
--- NOTE | 2019-04-04 17:17 | RAD_ITS ---
STUDY: X-RAY - LEFT ELBOW REASON FOR EXAM: Female, 23 years old. Pain. Patient has congenital bony defects. TECHNIQUE: 4 view(s) of the elbow. COMPARISON: None. FINDINGS: Exam limited by suboptimal positioning. No true lateral view. No evidence for fracture or dislocation. Abnormalities of the visualized radius and ulna are seen consistent with congenital bony dysplasia. Severe deformities are seen of the proximal radius. There is no true radial head. Deformity seen of the olecranon and there appears to be marked atrophy of the ulnar shaft. RAD/Elbow min 3 Views IMPRESSION: No definite acute abnormality. No definite fracture or dislocation. Marked chronic deformities of the elbow. Electronically Signed: Eleazar Gomez MD at 17:48 EDT , Service support ,
[2019-04-04 17:55] VITALS: PULSE 98; RESP 17; O2SAT 96
== END 2019-04-04 17:55 | disposition home or self-care (01) ==
PROVIDERS: Emergency Provider Physician Assistant; Family Provider Family Medicine; PCP Family Medicine
DX: M25.522 Pain in left elbow (principal); F17.200 Nicotine dependence, unspecified, uncomplicated; Q74.0 Other congenital malformations of upper limb(s), including shoulder girdle
CPT/HCPCS: 73080; 73090; 99283

== ENCOUNTER 2019-08-25 14:22 | Outpatient (RCR) | payer MEDICAID, SELFPAY ==
[2019-08-25 14:33] VITALS: BP 165/109; PULSE 105; RESP 18; TEMP 37; BMI 28.4
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
== END 2019-09-05 23:59 ==
LOC: WC 14:22
PROVIDERS: PCP Family Medicine; Visit Provider Nurse Practitioner Family
DX: T20.45XA Corrosion of unspecified degree of scalp [any part], initial encounter (principal); Y93.89 Activity, other specified; Y92.9 Unspecified place or not applicable; Q71 Reduction defects of upper limb; F17.210 Nicotine dependence, cigarettes, uncomplicated; F41.9 Anxiety disorder, unspecified; Z79.899 Other long term (current) drug therapy; G40.909 Epilepsy, unspecified, not intractable, without status epilepticus; Q07.00 Arnold-Chiari syndrome without spina bifida or hydrocephalus
CPT/HCPCS: 99204; G0463

== ENCOUNTER 2020-04-25 17:08 | Emergency (ER) | payer MEDICAID, SELFPAY ==
[2020-04-25 17:08] VITALS: BP 149/102; PULSE 132; RESP 18; TEMP 36.6; BMI 29.2
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
--- NOTE | 2020-04-25 18:47 | ED.VIS.GEN ---
History of Present Illness Chief Complaint: Upper Extremity Injury Informant: Patient Onset: Weeks Current Severity: Moderate Maximum Severity: Moderate Narrative: Patient presents with a reinjury to her left index finger. She suffered a fracture of her left index finger in late March. Patient states that she bumped her finger today and is concerned that she may have rebroken something. She is following up with Dr. Klever Cooper. 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 (2) History of anxiety Status: Chronic (3) History of seizure disorder Status: Chronic (4) Migraines Status: Chronic Past Medical History - Allergies and Home Meds Allergies/Adverse Reactions: Allergies No Known Allergies Allergy (Verified 04/25/20 17:12) Primary Care Physician: Olvin Dickey MD [Primary Care Provider] - Prior records reviewed: Yes Surgical History: noncontributory Smoking Status: Current every day smoker Review of Systems General: Denies: Chills, Fever Eyes: Denies: Visual changes - bilaterally ENT: Denies: Bilateral ear pain Cardiovascular: Denies: Chest pain Respiratory: Denies: Dyspnea Gastrointestinal: Denies: Abdominal pain Musculoskeletal: Reports: Extremity Pain Neurological: Denies: Headache Hematologic: Denies: Easy bruising, Easy bleeding Allergy: Denies: Uticaria Physical Exam Vital Signs/Narrative: Vital Signs Temp Pulse Resp BP 04/25/20 17:08 97.8 F 132 H 18 149/102 H Inital Vital Signs reviewed: Yes General: Well nourished, Well developed Head: Normocephalic ENT: Moist mucous membranes Cardiovascular: Regular rate, Regular rhythm Respiratory: No distress Extremities: - - Healed lacerations to the left index finger middle phalanx. Mild diffuse tenderness with mild edema. Decreased range of motion secondary to pain. Good sensation distally. Good cap refill. Neurological: Alert, Oriented x3 Psychological: Normal affect Diagnostic/Tx/Re-eval Impressions Finger X-Ray 04/25/20 17:44 IMPRESSION: 1. 2nd distal phalangeal tuft fracture. 2. Nondisplaced intra-articular fracture of the 2nd middle phalanx. Electronically Signed: Uyen Garduno MD at 18:02 EDT Tel , Service support , 04/25/20 17:44 Finger(s) Min 2 Views [RAD] Stat - Medical Decision Making Patient's previous x-rays were not done at this facility but I am able to see the written reports. They do comment on the distal tuft fracture, however I do not see mention of a fracture of the middle phalanx. This ultimately does not change our treatment as she will require AlumaFoam splint and follow-up. She will be given a dose of oxycodone here and then resume her prescription at home. ED Disposition - Plan for ED Patient: Disposition: Home or Assisted Living Diagnosis: Finger fracture Instructions: ED FINGER FRACTURE Closed Referrals: Klever Cooper MD [STAFF PHYSICIAN] - 1 Week
[2020-04-25] MEDS: oxyCODONE 5 MG Tablet PO (18:58)
[2020-04-25 19:06] VITALS: PULSE 128; RESP 17; O2SAT 97
== END 2020-04-25 19:07 | disposition home or self-care (01) ==
PROVIDERS: Emergency Provider Emergency Medicine; PCP Family Medicine
DX: S62.661A Nondisplaced fracture of distal phalanx of left index finger, initial encounter for closed fracture (principal); S62.651A Nondisplaced fracture of middle phalanx of left index finger, initial encounter for closed fracture; F41.9 Anxiety disorder, unspecified; Z79.899 Other long term (current) drug therapy; F17.200 Nicotine dependence, unspecified, uncomplicated; X58.XXXA Exposure to other specified factors, initial encounter; Y93.89 Activity, other specified; Y92.89 Other specified places as the place of occurrence of the external cause; Y99.8 Other external cause status
CPT/HCPCS: 73140; 99283

== ENCOUNTER 2020-05-19 18:54 | Emergency (ER) | payer MEDICAID, SELFPAY ==
[2020-05-19 18:55] VITALS: BP 150/115; PULSE 125; RESP 18; TEMP 37; O2SAT 99; BMI 27.8
[2020-05-19] MEDS: 0.9% Normal Saline 1,000 ML 999 ML IV (19:17)
[2020-05-19] MEDS: proCHLORPERazine 10 MG/2 ML Vial IV (19:17)
[2020-05-19] MEDS: DiphenhydrAMINE 50 MG/ML Syringe IV (19:17)
[2020-05-19] MEDS: Ketorolac 15 MG/ML Vial IV (19:17)
--- NOTE | 2020-05-19 19:24 | ED.VIS.GEN ---
History of Present Illness Chief Complaint: Headache Informant: Patient Onset: Days Context: Gradual Onset Timing: Continuous Current Severity: Moderate Maximum Severity: Moderate Narrative: The patient is a 24-year-old female with medical history significant for migraines, neurofibromatosis, and seizures. She presents to the emergency department with persistent headache. She states she is had it for the past few days. She does state it feels similar to her prior migraines. She has been nauseated without vomiting. She denies fevers or chills. She denies myalgias. She denies head trauma. She is not found anything that improve the symptoms. She is otherwise been in her normal state of health. Prior similar symptoms: Yes Recent Illness/Hospitalization: No Past Medical History - Allergies and Home Meds Allergies/Adverse Reactions: Allergies No Known Allergies Allergy (Verified 05/19/20 19:05) Primary Care Physician: Olvin Dickey MD [Primary Care Provider] - Prior records reviewed: Yes Past Medical History: - - Migraines, seizures, neurofibromatosis Surgical History: noncontributory Smoking Status: Current every day smoker Review of Systems General: Denies: Chills, Fever, Sweats Eyes: Denies: Visual changes - bilaterally, Diplopia ENT: Denies: Rhinorrhea, Sore throat Cardiovascular: Denies: Chest pain, Palpitations Respiratory: Denies: Dyspnea, Cough, Dyspnea on exertion Gastrointestinal: Reports: Nausea. Denies: Abdominal pain, Vomiting, Diarrhea, Melena, Hematochezia Genitourinary: Denies: Dysuria, Hematuria, Frequency Musculoskeletal: Denies: Back pain, Extremity Pain Skin: Denies: Rash, Wounds Neurological: Reports: Headache. Denies: Weakness, Numbness Physical Exam Vital Signs/Narrative: Vital Signs Temp Pulse Resp BP Pulse Ox 05/19/20 18:55 98.6 F 125 H 18 150/115 H 99 Inital Vital Signs reviewed: Yes General: Well nourished, Well developed, No Acute Distress Head: Normocephalic, Atraumatic Eyes: Perrl, EOMI ENT: Moist mucous membranes, No rhinorrhea Neck: Supple, Nontender Cardiovascular: Regular rate, Regular rhythm, No murmurs Respiratory: No distress, CTA bilaterally, Chest nontender Abdomen: Soft, Nontender, Nondistended, Normal bowel sounds Back: Nontender, Normal Inspection Extremities: Nontender, No edema Skin: Normal color, No rash Neurological: Alert, Oriented x3, Cranial nerves II-XII grossly intact, Normal Strength, Normal Sensation Psychological: Normal affect, Normal Mood Diagnostic/Tx/Re-eval - Medical Decision Making The patient presents with migraine headache. She is not meningitic or encephalopathic. There are components that are her normal headache. She is very well-appearing. I do not feel that imaging is necessary. Patient was treated with migraine abortive medications. Within 30 minutes, her headache is totally resolved. At this point, I do feel that she is safe for outpatient therapy. Impression 1. Migraine headache ED Disposition - Plan for ED Patient: Instructions: ED, Migraine (Classical) Referrals: Olvin Dickey MD [Primary Care Provider] -
[2020-05-19 19:52] VITALS: BP 124/60; PULSE 90; RESP 18; O2SAT 96
== END 2020-05-19 19:54 | disposition home or self-care (01) ==
PROVIDERS: Emergency Provider Emergency Medicine; PCP Family Medicine
DX: G43.909 Migraine, unspecified, not intractable, without status migrainosus (principal); Q85.00 Neurofibromatosis, unspecified; F17.200 Nicotine dependence, unspecified, uncomplicated; Z79.899 Other long term (current) drug therapy
CPT/HCPCS: 96361; 96374; 96375; 99282; J7030; A4216

== ENCOUNTER → 2022-09-10 | Outpatient (CLI) | payer MEDICAID, SELFPAY ==
--- NOTE | 2022-09-10 16:32 | NEURO ---
NCS and/or EMG Patient Report Ordering Doctor: Carmelita Samuel DATE OF SERVICE: 09/10/22 Indication: Numbness and tingling of the left hand and forearm for the last ~1 year. Symptoms fluctuate in severity, but are always present to some degree. Findings: Nerve conduction studies were performed in the left upper extremity. The left median motor study recording the abductor pollicis brevis showed a normal amplitude, normal distal latency and normal conduction velocity. The left ulnar motor study recording the abductor digiti minimi showed a normal amplitude, normal distal latency and normal conduction velocity. No conduction block or focal slowing was present across the elbow. The left median sensory response recording digit two showed a normal amplitude, latency and conduction velocity. The left ulnar sensory response recording digit five showed a normal amplitude, latency and conduction velocity. The left radial sensory response recording over the extensor snuff box showed a normal amplitude, latency and conduction velocity. Left median-ulnar lumbrical / interosseous motor latencies showed a normal median latency compared to the ulnar. Needle EMG of the left upper extremity muscles was normal. No denervation was seen in any muscle. All motor unit morphology and recruitment patterns were normal. Activation was limited in some muscle due to discomfort related to the needle electrode. Impression: This is a normal study. There is no electrophysiologic evidence of entrapment neuropathy in the left upper extremity. Anthony Lira D.O. Multi Select Codes Neurology Neurology Interp Codes: [id number] [facility] tst done w/nerv tst haider (interp) and [id number] [facility] cndj test 7-8 studies (interp)
== END | disposition home or self-care (01) ==
LOC: PSN 14:55
PROVIDERS: PCP Family Medicine; Visit Provider Physician Assistant
DX: R20.2 Paresthesia of skin (principal)
CPT/HCPCS: 95885; 95910

== ENCOUNTER 2023-04-29 13:21 | Emergency (ER) | payer MEDICAID, SELFPAY ==
[2023-04-29 13:22] VITALS: BP 132/103; PULSE 118; RESP 18; TEMP 36.7; O2SAT 99
[2023-04-29 15:05] VITALS: BP 143/94; PULSE 89; RESP 16; TEMP 37; O2SAT 98
--- NOTE | 2023-04-29 15:59 | EDS_ITS ---
HPI HPI - URI History of Present Illness Chief Complaint: Cold Sx Informant: patient Narrative Narrative: Patient is a 27-year-old female with history of anxiety, seizures, high blood pressure and migraines presenting with URI symptoms. She notes that her boyfriend has had similar symptoms and was tested for COVID yesterday which resulted positive. Patient states she has had 2 days of symptoms consisting of cough, runny nose, headache, body aches, low back pain and chills. She notes she was recently on antibiotics for urinary tract infection. She also tells me that she is 21 to 22 days late on her menstrual cycle. She is not taken home test. Patient notes that she did recently transition from an implanted contraceptive to control pills. No other complaints or concerns at this time. Patient states that she does require notes because she goes to a parenting group and is also concerned because she is taking care of a 3-month-old child who was in the NICU ROS [facility] ED Constitutional Constitutional ED: Reports chills and fever(s) Eyes Eyes: Denies change in vision ENT ENT ED: Reports ear pain and rhinorrhea Cardiovascular Cardiovascular: Denies chest pain Respiratory/Chest Respiratory/Chest: Reports cough; Denies dyspnea Gastrointestinal Gastrointestinal: Denies abdominal pain or vomiting Genitourinary Genitourinary ED: Reports other Details: Abnormal menstrual cycle ; Denies dysuria or hematuria Musculoskeletal Musculoskeletal: Reports myalgias; Denies arthralgias Integumentary Denies rash Neurologic Neurologic: Reports headache(s) Psychiatric Psychiatric: Denies anxiety PFSH PFSH Medical History no medical history Home Medications alprazolam 0.25 mg tablet 1 mg PO TID 06/19/18 [History Last Taken Unknown] levetiracetam 500 mg tablet 500 mg PO BID 04/04/19 [History Last Taken Unknown] albuterol sulfate 90 mcg/actuation breath activated powder inhaler (ProAir RespiClick) 1 inh inhalation Q6H PRN shortness of breath or wheezing #1 ea 04/29/23 [Rx Last Taken Unknown] bisoprolol 5 mg-hydrochlorothiazide 6.25 mg tablet 1 tab PO DAILY 04/29/23 [History Last Taken Unknown] drospirenone 3 mg-ethinyl estradiol 0.02 mg tablet 1 tab PO DAILY 04/29/23 [History Last Taken Unknown] nirmatrelvir 300 mg (150 mg x2)-ritonavir 100 mg tablet,dose pack (Paxlovid) See Rx Instructions PO .COMPLEX #30 tabs 04/29/23 [Rx Last Taken Unknown] rizatriptan 10 mg tablet 10 mg PO DAILY 04/29/23 [History Last Taken Unknown] topiramate 50 mg tablet 50 mg PO .hs 04/29/23 [History Last Taken Unknown] Allergy/AdvReac Type Severity Reaction Status Date / Time No Known Allergies Allergy Verified 04/29/23 13:22 Social History Smoking Status: Current every day smoker tobacco type: e-cigarettes EXAM Physical Exam Const Vital Signs: 04/29/23 13:22 04/29/23 15:05 04/29/23 15:05 Temperature 98.1 F 98.6 F Temperature Source Temporal Temporal Pulse Rate 118 H 89 89 Respiratory Rate 18 16 16 Respiratory Effort Respiratory Pattern Blood Pressure 132/103 H 143/94 H 143/94 H Blood Pressure Mean 112 110 110 Pulse Ox 99 98 98 Oxygen Delivery Method Room Air Room Air Room Air 04/29/23 15:05 Temperature Temperature Source Pulse Rate Respiratory Rate Respiratory Effort Normal Respiratory Pattern Normal Blood Pressure Blood Pressure Mean Pulse Ox Oxygen Delivery Method Positive well nourished and well developed General Appearance ED: well developed and NAD HEENT Reports moist mucous membranes normocephalic and atraumatic Throat: posterior oropharynx abnormal Positive for erythema (Injected); Negative for edema or exudates Eyes PERRL and EOMs intact bilaterally Neck supple and no meningeal signs General: Negative for lymphadenopathy Resp normal respiratory effort and clear to auscultation bilaterally Resp Narrative: Patient does have a coarse bronchial sounding cough intermittently on my evaluation of her Auscultation: Negative for rhonchi or wheezes Cardio no murmurs Rate: regular rate Rhythm: regular rhythm GI non-tender and non-distended Extremity normal to inspection and full ROM Neuro oriented x3 Sensorium / Orientation: alert Motor Exam: Negative for general weakness Psych mental status grossly normal Skin Rashes: no rashes MDM MDM MDM Narrative Medical decision making narrative: Patient evaluated for 2 days of URI symptoms. She has known COVID exposure. Protocol COVID and flu test ordered by nursing. Patient is COVID-positive. This is consistent with her symptoms. She is otherwise well-appearing. She has clear breath sounds I do not think she requires a chest x-ray. Low suspicion for associated pneumonia. Patient does report irregular menstrual cycle so we will obtain a test. Suspect patient might develop bronchitis given her current cough and her continued tobacco use. Will prescribe her an inhaler for this. She will continue take [id number] cough and cold medicine as well as Mucinex. Given a note and counseled on isolation precautions (masking for 5 days). test is negative. Discussed risk and benefits of Paxlovid. Patient does have underlying hypertension. She is interested in taking Paxlovid. Will prescribe this. Did review patient's medication list with her as well. Lab Data Labs: Laboratory Results - last 24 hr 04/29/23 15:34 Urine Test Negative Discharge Plan Triage Chief Complaint: Cold Sx ED Provider: Brenda Saunders Dx/Rx/DC Orders Clinical Impression: COVID-19 virus infection, Cough Instructions: Coronavirus Disease 2019 (COVID-19): Overview Prescriptions: New ProAir RespiClick 90 mcg/actuation aerosol powdr breath activated 1 inh inhalation Q6H PRN (Reason: shortness of breath or wheezing) Qty: 1 0RF Paxlovid 300 mg (150 mg x 2)-100 mg tablets,dose pack See Rx Instructions .ROUTE .COMPLEX Qty: 30 0RF Rx Instructions: take TWO 150 mg tablets of nirmatrelvir with ONE 100 mg tablet of ritonavir twice daily for 5 days No Action alprazolam 0.25 MG tablet 1 mg PO TID levetiracetam 500 MG tablet 500 mg PO BID Patient Comments: TAKE 1 TABLET TWICE DAILY rizatriptan 10 mg tablet 10 mg PO DAILY Patient Comments: Take 1 (ONE) tablet by mouth AT ONSET OF HEADACHE may repeat in 2 (TWO) hours... (REFER TO PRESCRIPTION NOTES).] bisoprolol-hydrochlorothiazide 5-6.25 mg tablet 1 tab PO DAILY Patient Comments: TAKE 1 TABLET BY MOUTH ONCE DAILY topiramate 50 mg tablet 50 mg PO .hs Patient Comments: TAKE 1 TABLET BY MOUTH EVERY DAY AT BEDTIME drospirenone-ethinyl estradiol 3-0.02 mg tablet 1 tab PO DAILY Patient Comments: TAKE 1 TABLET BY MOUTH EVERY DAY Stand Alone Forms: ED Work / School Excuse Primary Care Provider: Olvin Dickey Referrals: Olvin Dickey MD [Primary Care Provider] - Activity Restrictions/Additional Instructions: Your COVID test was positive. You need to isolate and mask around others for 5 days from onset of symptoms. At the end of 5 days if you are fever free and your symptoms are improving you may end isolation. If you have shortness of breath or difficulty breathing continue to isolate through 10 days. If you have further concerns please return to the emergency room. Your test was negative today. Antiviral medication to treat COVID (Paxlovid) may make your control more effective. We recommend you use nonhormonal control such as condoms while taking this medication and until you have your next menstrual cycle. In addition it can make your alprazolam stronger. You might need to take less of it to have the same effect. Disposition Disposition: Home, Self Care
[2023-04-29 16:09] LABS: Internal QC Validated? YES +Cl - CLEAR BKGD; Pregnancy, Urine Negative Negative; Record Kit Lot#,Urine Preg 667200
[2023-04-29] MEDS: Ibuprofen 600 MG Tablet PO (16:40)
== END 2023-04-29 16:44 | disposition home or self-care (01) ==
PROVIDERS: Emergency Provider Emergency Medicine; PCP Family Medicine; Visit Provider Emergency Medicine
DX: U07.1 COVID-19 (principal); I10 Essential (primary) hypertension; F41.9 Anxiety disorder, unspecified; F17.290 Nicotine dependence, other tobacco product, uncomplicated; R51.9 Headache, unspecified
CPT/HCPCS: 81025; 87428; 99283

== ENCOUNTER 2024-04-17 12:45 | Outpatient (CLI) | payer MEDICAID, SELFPAY ==
[2024-04-17] VITALS (33 sets, daily range): BP systolic 134–185; BP diastolic 75–113; PULSE 84–131; RESP 16–18; TEMP 35.8–36.8; O2SAT 89–100; BMI 32.2
[2024-04-17 14:25] LABS: Protein, Urine (Random) 32.8 mg/dL (<11.9); Protein:Creat Ratio 157 mg/g CRE (0-200)
[2024-04-17] MEDS: Labetalol (Prefilled) 20 MG/4 ML Vial IV (14:25)
[2024-04-17 14:28] LABS: Hematocrit 32.7 % (37-47); Hemoglobin 10.5 g/dL (12.0-15.0); Mean Corp Hgb Conc 32.1 g/dL (32-36); Mean Corpuscular Hgb 26.8 pg (27.0-32.0); Mean Corpuscular Volume 83.4 fL (81-99); Mean Platelet Vol. 10.9 fl (6.2-12.0); Platelet Count 273 K/mm3 (150-450); RBC Distribution Width CV 13.4 % (11.6-14.6); RBC Distribution Width SD 41.1 fl (35.1-43.9); Red Blood Count 3.92 M/mm3 (4.2-5.4); White Blood Count 16.7 K/mm3 (4.4-11.0)
[2024-04-17] MEDS: Magnesium Sulfate 4gm/100mL 4 GM/100 ML IV.SOLN. IV (14:29)
[2024-04-17] MEDS: Betamethasone/Betamethasone 30 MG/5 ML Vial 12 MG IM (14:37)
[2024-04-17] MEDS: LACTATED RINGERS 500 ML 20 ML IV (14:40)
[2024-04-17 14:41] LABS: AST(SGOT) 33 U/L (15-37); Alanine Aminotransfer ALT/SGPT 37 U/L (13-56); Creatinine, Serum 0.69 mg/dL (0.55-1.02); EST Glomerular Filtration Rate 107 mL/min (>60); Est Glom Filt Rate - Afr Amer 130 mL/min (>60); Uric Acid 4.6 mg/dL (2.6-6.0)
--- NOTE | 2024-04-17 14:42 | HP.PCM.OB_ITS ---
HPI - General HPI Narrative PABLO ALARCON, is a 28 F @ 25w3d who presents with severe range bps, headache, 2 beats clonus. she has been seeing dr spangler in [place], has a history of chronic hypertension but hasn't been on any medications . Patient denies any vaginal bleeding or loss of fluid admits good movement. She is planning on transferring care to the [facility] next week but she has not establish care with them yet. Maternal Data Information JOE Calculator Estimated Delivery Date Method Current WG Current Estimate 07/28/24 Manual 25w 6d PFSH PFSH Medical History (Updated 04/20/24 @ 07:[address] Darby Lee MD) Hypertension affecting Neurofibromatosis History of seizure disorder Arnold-Chiari malformation Congenital absence of left ulna Home Medications ?Medication ?Instructions ?Recorded ?Last Taken ?Type penicillin V potassium 500 mg 500 mg PO Q12H 04/17/24 Unknown History tablet vit no.95-ferrous 1 tab PO DAILY 04/17/24 Unknown History fumarate 28 mg-folic acid 800 mcg tablet () Allergy/AdvReac Type Severity Reaction Status Date / Time No Known Allergies Allergy Verified 04/17/24 13:03 Surgical History (Updated 04/17/24 @ 14:[address] Darby Lee MD) History of tonsillectomy History of surgery on upper extremity Social History Smoking Status: Current every day smoker tobacco type: e-cigarettes NST FHR Rate Baby A Baseline: 140 Variability:: Moderate Accelerations:: 10 x 10 Decelerations:: None NST Reactive:: Yes FHR Category:: Category I Uterine Activity:: no regular Vital Signs Vital Signs Vital Signs: 04/17/24 12:59 04/17/24 12:59 04/17/24 12:59 Temperature Temperature Source Pulse Rate 131 H Respiratory Rate Blood Pressure 139/100 H BP Systolic 139 BP Diastolic 100 Pulse Ox 99 04/17/24 12:59 04/17/24 12:59 04/17/24 12:59 Temperature 98.3 F Temperature Source Temporal Pulse Rate Respiratory Rate 16 Blood Pressure BP Systolic BP Diastolic Pulse Ox 04/17/24 13:03 04/17/24 13:03 04/17/24 13:04 Temperature Temperature Source Pulse Rate 125 H 125 H Respiratory Rate Blood Pressure 153/104 H BP Systolic 153 BP Diastolic 104 Pulse Ox 04/17/24 13:04 04/17/24 13:09 04/17/24 13:09 Temperature Temperature Source Pulse Rate 112 H Respiratory Rate Blood Pressure BP Systolic BP Diastolic Pulse Ox 99 100 04/17/24 13:14 04/17/24 13:14 04/17/24 13:14 Temperature Temperature Source Pulse Rate 118 H Respiratory Rate Blood Pressure 162/110 H BP Systolic 162 BP Diastolic 110 Pulse Ox 100 04/17/24 13:19 04/17/24 13:19 04/17/24 13:24 Temperature Temperature Source Pulse Rate 110 H 112 H Respiratory Rate Blood Pressure BP Systolic BP Diastolic Pulse Ox 100 04/17/24 13:24 04/17/24 13:29 04/17/24 13:29 Temperature Temperature Source Pulse Rate 102 H Respiratory Rate Blood Pressure BP Systolic BP Diastolic Pulse Ox 100 100 04/17/24 13:34 04/17/24 13:34 04/17/24 13:36 Temperature Temperature Source Pulse Rate 113 H Respiratory Rate Blood Pressure 185/110 H BP Systolic 185 BP Diastolic 110 Pulse Ox 100 04/17/24 13:36 04/17/24 13:37 04/17/24 13:37 Temperature Temperature Source Pulse Rate 100 95 Respiratory Rate Blood Pressure BP Systolic BP Diastolic Pulse Ox 89 04/17/24 13:39 04/17/24 13:39 04/17/24 13:44 Temperature Temperature Source Pulse Rate 105 H 97 Respiratory Rate Blood Pressure BP Systolic BP Diastolic Pulse Ox 95 04/17/24 13:44 04/17/24 13:49 04/17/24 13:49 Temperature Temperature Source Pulse Rate 107 H Respiratory Rate Blood Pressure BP Systolic BP Diastolic Pulse Ox 99 99 04/17/24 13:52 04/17/24 13:52 04/17/24 13:54 Temperature Temperature Source Pulse Rate 96 111 H Respiratory Rate Blood Pressure 166/113 H BP Systolic 166 BP Diastolic 113 Pulse Ox 04/17/24 13:54 04/17/24 14:06 04/17/24 14:06 Temperature Temperature Source Pulse Rate 126 H Respiratory Rate Blood Pressure 176/103 H BP Systolic 176 BP Diastolic 103 Pulse Ox 100 04/17/24 14:22 04/17/24 14:22 10/11/24 14:35 Temperature Temperature Source Pulse Rate 105 H Respiratory Rate Blood Pressure 179/111 H 156/94 H BP Systolic 179 156 BP Diastolic 111 94 Pulse Ox 04/17/24 14:35 04/17/24 14:37 04/17/24 14:37 Temperature Temperature Source Pulse Rate 99 97 Respiratory Rate Blood Pressure 159/108 H BP Systolic 159 BP Diastolic 108 Pulse Ox Physical Exam Const alert, oriented x3 and no apparent distress HEENT Head and Scalp: normocephalic and atraumatic Eyes EOMs intact bilaterally Neck full ROM and no lymphadenopathy Chest inspection of chest normal Resp normal respiratory effort GI GI Narrative: gravid, abdomen nontender, AGA Neuro no focal motor deficits Motor Exam: clonus absent Labs Labs Labs: Hct 32.7 % (37-47) L Hgb 10.5 g/dL (12.0-15.0) L Assessment & Plan (1) Gestational hypertension: COMMENT: severe, 25 weeks (2) : QUALIFIERS: Weeks of gestation: 25 weeks Qualified Code(s): Z3A.25 - 25 weeks gestation of PLAN: Plan Acute exacerbation of chronic hypertension versus new onset severe gestational hypertension or early preeclampsia. Negative proteinuria and normal labs. Discussed with MFM plan transfer to tertiary care center for monitoring, ma gnesium started. Celestone injection given. Charges/Coding Procedures Urinary/Genital [id number]: [id number] non-stress test Interp Multi Select Codes Visit Charges Office Visit/Consults: 82008 OV L3 Est 20min
[2024-04-17] MEDS: Magnesium Sulfate 4gm/100mL 2 GM/50 ML IV.SOLN. IV (14:56)
[2024-04-17] MEDS: Magnesium Sulfate 20 GM/500 ML BAG IV (15:12)
== END 2024-04-17 17:30 | disposition short-term general hospital (02) ==
LOC: WPOUT 12:49 → WP 12:50
PROVIDERS: PCP Family Medicine; Referring Provider Obstetrics & Gynecology; Visit Provider Obstetrics & Gynecology
DX: O13.2 Gestational [pregnancy-induced] hypertension without significant proteinuria, second trimester (principal); O99.332 Smoking (tobacco) complicating pregnancy, second trimester; F17.290 Nicotine dependence, other tobacco product, uncomplicated; O99.891 Other specified diseases and conditions complicating pregnancy; R25.8 Other abnormal involuntary movements; Z3A.25 25 weeks gestation of pregnancy
CPT/HCPCS: 96365; 96366; 36415; 59050; 82565; 82570; 84156; 84450; 84460; 84550; 85027; 96372; 99221; G0378; J0702

== ENCOUNTER 2024-05-08 12:48 | Outpatient (CLI) | payer MEDICAID, SELFPAY ==
[2024-05-08] VITALS (20 sets, daily range): BP systolic 112–155; BP diastolic 71–96; PULSE 78–98; O2SAT 97–99; BMI 31.7
--- NOTE | 2024-05-13 12:16 | OB.TRI.NOTE ---
HPI - General General Date of Admission: 05/08/24 Date of Service: 05/08/24 Chief Complaint: decreased movement, increased BP at home HPI Narrative PABLO ALARCON, is a 28 F who presents at 28 weeks c/o decreased FM and increased BP. Maternal Data Information JOE Calculator Estimated Delivery Date Method Current WG Current Estimate 07/28/24 Manual 29w 1d PFSH PFSH Medical History (Updated 05/13/24 @ 12:[address] Lizzette Galan MD) Hypertension affecting Neurofibromatosis History of seizure disorder Arnold-Chiari malformation Congenital absence of left ulna Home Medications ?Medication ?Instructions ?Recorded ?Last Taken ?Type penicillin V potassium 500 mg 500 mg PO Q12H 04/17/24 Unknown History tablet vit no.95-ferrous 1 tab PO DAILY 04/17/24 Unknown History fumarate 28 mg-folic acid 800 mcg tablet () Allergy/AdvReac Type Severity Reaction Status Date / Time No Known Allergies Allergy Verified 04/17/24 13:03 Surgical History (Updated 04/17/24 @ 14:[address] Darby Lee MD) History of tonsillectomy History of surgery on upper extremity Social History Smoking Status: Current every day smoker tobacco type: e-cigarettes NST FHR Rate Baby A Baseline: 140 Variability:: Moderate Accelerations:: 10 x 10 Decelerations:: None NST Reactive:: Appropriate for gestational age Uterine Activity:: no regular ctxs Assessment & Plan (1) 28 weeks gestation of : (2) Supervision of high risk elderly multigravida in third trimester: (3) Decreased movement affecting management of mother, antepartum: PLAN: NST appropriate for gest age. D/shara home to f/u in office or return prn.
== END 2024-05-08 14:30 | disposition home or self-care (01) ==
LOC: WPOUT 12:59 → WP 12:59
PROVIDERS: PCP Family Medicine; Referring Provider Obstetrics & Gynecology; Visit Provider Obstetrics & Gynecology
DX: O36.8130 Decreased fetal movements, third trimester, not applicable or unspecified (principal); O16.3 Unspecified maternal hypertension, third trimester; O99.333 Smoking (tobacco) complicating pregnancy, third trimester; F17.290 Nicotine dependence, other tobacco product, uncomplicated; Z3A.28 28 weeks gestation of pregnancy
CPT/HCPCS: 59025; 59050; 99221; G0378

== ENCOUNTER 2024-05-15 11:43 | Outpatient (CLI) | payer MEDICAID, SELFPAY ==
[2024-05-15] VITALS (13 sets, daily range): BP systolic 123–156; BP diastolic 69–109; PULSE 73–97; RESP 16; TEMP 36.8; O2SAT 98; BMI 32.1
[2024-05-15 12:56] LABS: Hematocrit 33.6 % (37-47); Hemoglobin 10.7 g/dL (12.0-15.0); Mean Corp Hgb Conc 31.8 g/dL (32-36); Mean Corpuscular Hgb 26.1 pg (27.0-32.0); Mean Platelet Vol. 11.5 fl (6.2-12.0); Platelet Count 250 K/mm3 (150-450); White Blood Count 13.5 K/mm3 (4.4-11.0)
[2024-05-15 13:14] LABS: AST(SGOT) 12 U/L (15-37); Alanine Aminotransfer ALT/SGPT 15 U/L (13-56); Creatinine, Serum 0.55 mg/dL (0.55-1.02); EST Glomerular Filtration Rate 140 mL/min (>60); Est Glom Filt Rate - Afr Amer 169 mL/min (>60); Estimated Creatinine Clearance 144.24 ml/min; Uric Acid 4.7 mg/dL (2.6-6.0)
[2024-05-15 13:16] LABS: Protein, Urine (Random) 21.5 mg/dL (<11.9); Protein:Creat Ratio 135 mg/g CRE (0-200)
[2024-05-15] MEDS: Labetalol 200 MG Tablet 400 MG PO (13:38)
== END 2024-05-15 15:30 | disposition home or self-care (01) ==
LOC: WPOUT 11:51 → WP 11:51
PROVIDERS: PCP Family Medicine; Referring Provider Advanced Practice Midwife; Visit Provider Advanced Practice Midwife
DX: O10.913 Unspecified pre-existing hypertension complicating pregnancy, third trimester (principal); O99.333 Smoking (tobacco) complicating pregnancy, third trimester; F17.290 Nicotine dependence, other tobacco product, uncomplicated; O09.93 Supervision of high risk pregnancy, unspecified, third trimester; O36.8330 Maternal care for abnormalities of the fetal heart rate or rhythm, third trimester, not applicable or unspecified; Z3A.29 29 weeks gestation of pregnancy; Z79.82 Long term (current) use of aspirin; Z79.899 Other long term (current) drug therapy
CPT/HCPCS: 36415; 59025; 59050; 82565; 82570; 84156; 84450; 84460; 84550; 85027; 99221; G0378

== ENCOUNTER → 2024-07-20 | Outpatient (CLI) | payer MEDICAID, SELFPAY | END | disposition home or self-care (01) | LOC: LABSPEC 15:23 | PROVIDERS: PCP Family Medicine; Referring Provider Otolaryngology; Visit Provider Otolaryngology | DX: J32.9 Chronic sinusitis, unspecified (principal) | CPT/HCPCS: 87070; 87077; 87205 ==

== ENCOUNTER → 2025-02-11 | Outpatient (CLI) | payer MEDICAID, SELFPAY ==
--- NOTE | 2025-02-11 16:06 | CT_ITS ---
PROCEDURE: SINUS/FACIAL BONE 02/11/2025 REASON FOR EXAM: CHRONIC SINUSITIS TECHNIQUE: SINUS/FACIAL BONE Coronal and Sagittal reconstruction series were provided. One or more dose reduction techniques were used (e.g., Automated exposure control, adjustment of the mA and/or kV according to patient size, use of iterative reconstruction technique). RADIATION DOSE SUMMARY: CTDlvol: 28.14 mGy DLP: 714.53 mGycm COMPARISON: None provided. CT/Sinus/Facial Bone IMPRESSION: Periodontal disease is seen,, also with concern for loose tooth and/or periapic al abscess in the right mandible. Complete opacification of the right maxillary sinus is seen, with destruction o f the medial maxillary wall, and extending into the nose and right ethmoid air cells. 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 Complete opacification of the right frontal sinuses also seen, perhaps due to e xtension of the same process. Left ethmoid air cells, sphenoid sinuses, and left maxillary sinus appear essen tially clear. Mastoid air cells appear clear. The left ostium appears patent. No involvement of the orbits is seen at this time. Reading Location: [place] [id number]
== END | disposition home or self-care (01) ==
LOC: CT 16:04
PROVIDERS: PCP Family Medicine; Referring Provider Otolaryngology; Visit Provider Otolaryngology
DX: J32.9 Chronic sinusitis, unspecified (principal)
CPT/HCPCS: 70486

== ENCOUNTER 2025-02-28 16:54 | Emergency (ER) | payer MEDICAID, SELFPAY ==
[2025-02-28 16:54] VITALS: BP 144/116; PULSE 105; RESP 16; TEMP 36.9; O2SAT 97; BMI 31.5
--- NOTE | 2025-02-28 17:25 | RAD_ITS ---
PROCEDURE: FOOT MIN 3 VIEWS 02/28/2025 REASON FOR EXAM: SWELLING PAIN AFTER INJURY Initial encounter. TECHNIQUE: FOOT MIN 3 VIEWS Laterality: Right COMPARISON: Right ankle radiographs today FINDINGS: Bones: No fracture appreciated Joints: Intact joints Soft tissues: No soft tissue swelling appreciated. Other: RAD/Foot min 3 Views IMPRESSION: No acute process is appreciated. Reading [facility]
--- NOTE | 2025-02-28 17:27 | RAD_ITS ---
PROCEDURE: ANKLE MIN 3 VIEWS 02/28/2025 REASON FOR EXAM: PAIN Right ankle pain status post twisting injury. Initial encounter. TECHNIQUE: ANKLE MIN 3 VIEWS Laterality: Right COMPARISON: Ankle radiograph April 02, 2018 FINDINGS: Bones: Definite fracture is not appreciated. Joints: Intact. No significant DJD. Soft tissues: No focal soft tissue swelling Other: RAD/Ankle min 3 Views IMPRESSION: No acute process identified. Reading Location: [facility]
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
--- OUTSIDE RECORDS SUMMARY | 2025-02-28 18:14 | XMS RPT_ITS | CCD ---
Author Organization [facility] Care Team Providers Care Shell Plater Name Role Phone MICHELL MADERA Unavailable Unavailable MICHELL MADERA Unavailable Unavailable TOMÁS DICKEY Unavailable Unavailable Tomás Dickey Primary Care Provider TOMÁS DICKEY MD Primary Care Physician Dr. Tomás Dickey Primary Care Provider [phone] VANESA Bowen Other Provider [phone] Dr. Huber Lira Attending Provider KVNG MCPHERSON PA-C Attending Unavailable TOMÁS DICKEY MD Primary Care Unavailable TOMÁS DICKEY MD Attending Unavailable TOMÁS DICKEY MD Primary Care Unavailable TOMÁS DICKEY MD Primary Care Unavailable VEENA DONALD, DOMINICK Dow Attending Henna RODRICK Schaefer Attending UnavailTOMÁS Rico MD Primary Care Unavailable DANIEL SPANGLER DO Attending UnavailTOMÁS Rico MD Primary Care Unavailable TOMÁS DICKEY MD Attending Unavailable TOMÁS DICKEY MD Primary Care Unavailable TOMÁS DICKEY MD Primary Care Unavailable TOMÁS DICKEY MD Attending Unavailable KVNG MCPHERSON PA-C Attending Unavailable TOMÁS DICKEY MD Primary Care Unavailable TOMÁS DICKEY MD Attending Unavailable TOMÁS DICKEY MD Primary Care Unavailable TOMÁS DICKEY MD Attending Unavailable TOMÁS DICKEY MD Primary Care Unavailable DR CINDY FIORE DO Attending Unavailable TOMÁS DICKEY MD Primary Care Unavailable Tomás Dickey Primary Care Provider [phone] TOMÁS DICKEY Primary Care Unavailable BERE DURANT Admitting Unavailable BERE DURANT Attending Unavailable , CHELITA Consulting Unavailable ALAJR, WISSAMike Consulting Unavailable MERCED WILSON Consulting Unavailable Tomás Dickey MD Primary Care Provider [phone] TOMÁS DICKEY Primary Care Unavailable DANIEL SPANGLER Referring Unavailable BERE DURANT Attending Unavailable Vanna RN, Toya Unavailable Unavailable Vanna RN, Toya Unavailable Unavailable TOMÁS DICKEY Primary Care Unavailable BJ LANE Admitting Unavailable GARDENIA MARADIAGA Attending Unavailable SAE CASTILLOMI Attending Unavailable TOMÁS DICKEY STUART Primary Care Unavailable TOMÁS DICKEY STUART Primary Care Unavailable JONATHAN MANUEL Attending Unavailable TOMÁS DICKEY Primary Care Unavailable DICKEY, TOMÁS STUART Primary Care Unavailable TOMÁS DICKEY MD Consulting Unavailable ISAIAH KUMAR Attending Unavailabl e GEORGETTETMRENETTA, CHRISTOPHER Primary Care Unavailabl e STACY, ISAIAH Admitting Unavailabl e PROVIDER, UNKNOWN Consulting Unavailable PROVIDER, UNKNOWN Consulting Unavailable SAE CASTILLOMI Referring Unavailable TOMÁS DICKEYANE Primary Care Unavailable NOBLE, TOMÁS PEDRAZAANE Primary Care Unavailable NOBLE, TOMÁS STAURT Primary Care Unavailable JOCELYN BOTELLO Attending Unavailable TOMÁS DICKEY STUART Primary Care Unavailable MICHELE GARLAND Referring Unavailable TOMÁS DICKEY STUART Primary Care Unavailable VIOLA SOMERS Attending Unavailable TOMÁS DICKEY STUART Primary Care Unavailable VIRAJ MORALES Attending Unavailable NOBLE, TOMÁS STUART Primary Care Unavailable ИРИНА CORTEZ Referring Unavailable TOMÁS DICKEY STUART Primary Care Unavailable MICHELE GARLAND Attending Unavailable KOFI MONREAL Attending Unavailable TOMÁS DICKEY STUART Primary Care Unavailable TOMÁS DICKEY STUART Primary Care Unavailable KOFI MONREAL Attending Unavailable KOFI MONREAL Referring Unavailable JOCELYN BOTELLO Attending Unavailable TOMÁS DICKEY STUART Primary Care Unavailable BRADEN CHRISTOPHER MD Attending Unavailable NOBLE, TOMÁS STUART Primary Care Unavailable TANJA MOSHER Referring Unavailable TOMÁS DICKEY STUART Primary Care Unavailable MICHELL AVALOS Attending Unavailable NOBLE, TOMÁS STUART Primary Care Unavailable DICKEY, TOMÁS STUART Primary Care Unavailable VIOLA SOMERS Attending Unavailable TOMÁS DICKEY MD Primary Care Unavailable TOMÁS DICKEY MD Attending Unavailable TOMÁS DICKEY MD Attending Unavailable TOMÁS DICKEY MD Primary Care Unavailable KELLE WALTERS MD Attending Unavailable TOMÁS DICKEY MD Primary Care Unavailable Noble IBANEZ, Dr. Bah Primary Care Provider Ese IBANEZ, Dr. Gay Attending Provider Stacy IBANEZ, Dr. Cruz Attending Provider Stacy IBANEZ, Dr. Cruz Referring Provider Isaiah Kumar Attending Unavailabl e Isaiah Kumar Referring Unavailabl e Tomás Dickey Primary Care Unavailable Xochitl Lee Consulting Unavailable Marcanthony, Xochitl Attending Unavailable Marcanthony, Xochitl Referring Unavailable Dickey, Tomás Primary Care Unavailable Dickey, Tomás Primary Care Unavailable Marcanthony, Xochitl Attending Unavailable Marcanthony, Xochitl Referring Unavailable Viraj Morales Attending Unavailable Kei, Karmon Referring Unavailable Dickey, Tomás Primary Care Unavailable Michell Avalos Attending Unavailable Michell Avalos Referring Unavailable Dickey, Tomás Primary Care Unavailable Isaiah Kumar Attending Unavailabl e Stacy, Isaiah Referring Unavailabl e Dickey, Tomás Primary Care Unavailable Allergies Allergy Classification Reported Allergen(s) Allergy Type Date of Onset Reaction(s) Facility (20 sources) acetaminophen; Translations: [ACETAMINOPHEN] Drug Allergy 11-21-19 18 Other (See Comments), Unknown [facility] Repository (20 sources) diphenhydrAMINE; Translations: [DIPHENHYDRAMINE] Drug Allergy 11-21-19 18 Unknown [facility] (20 sources) ibuprofen; Translations: [IBUPROFEN] Drug Allergy 11-21-19 18 Other (See Comments), Unknown [facility] (20 sources) Seasonal allergy; Translations: [SEASONAL ALLERGIES] Propensity to adverse reactions (disorder) 12-13-19 Cough [facility] Repository (1 source) Seasonal allergy Propensity to adverse reactions to substance 12-13-19 Other (See Comments) [place], [place] (20 sources) gabapentin; Translations: [GABAPENTIN] Drug Allergy 04-24-20 Rash [facility] (1 source) Methylphenidate; Translations: [METHYLPHENIDATE] Drug Allergy 10-21-19 [facility] Repository (19 sources) Dextroamphetamine; Translations: [DEXTROAMPHETAMINE] Drug Allergy 05-15-20 Mental Status Change [facility] Comment on above: Caused hallucination s (1 source) gabapentin Drug Allergy [facility] Repository (1 source) Amphetamine Drug Allergy 05-15-20 Other [facility] Comment on above: Caused hallucination s (1 source) Amphetamine Drug Allergy 05-15-20 [facility] Repository (1 source) Dextroamphetamine Drug Allergy 05-15-20 [facility] Repository Medications Current Medications Medication Drug Class(es) Dates Sig (Normalized) Sig (Original) acetaminophen 500 mg oral tablet (7 sources) Start: 06-05-2024 End: 06-15-2024 take 2 tablets by mouth every six hours as needed acetaminophen (TYLENOL) 500 mg tablet Take 2 tablets by mouth every 6 hours as needed for pain for up to 10 days. 30 tablet 06/05/2024 06/15/2024 Active Start: 04-17-2024 End: 04-23-2024 take 1 tablet by mouth every four hours as needed for pain 650 mg, Oral, Every 4 hours PRN, mild pain (1-3), Fever GREATER than 100.5 F (38 C), Starting on Sat04/17/24 at 1848, Maximum dose of acetaminophen is 4000 mg from all sources in 24 hours. Start: 01-27-2024 acetaminophen 500 mg oral tablet 0 Refill(s) Start Date: 01/27/24 Status: Ordered [id number] 200 actuat albuterol 0.09 mg/actuat metered dose inhaler (20 sources) beta2-Adrenergic Agonist Start: 05-15-2024 Albut pedro Sulfate 90 mcg/actuation HFA aerosol inhaler Active 1 NMA INHALATION Q8H as needed for asthma May 15, 2024 1:00am Start: 04-01-2024 take 2 puff(s) by in halation every six hours ProAir HFA MDI (90 mcg/inh) inhalation aerosol 2 puff(s), Inhalation, q6h, # 1 EA, 2 Refill(s), Pharmacy: [facility], Bronchospasm, 156, cm, 01/27/24 16:16:00 EDT, Height, kg, 01/27/24 16:16:00 EDT, Dosing Weight Start Date: 04/01/24 Status: Ordered Quantity: 1.0 Unit: EA Repeat number: 3 Indications: Acute bronchospasm; Start: 07-23-2023 take 1 dose by inhal ation every six hours albuterol 2.5 mg/3 mL (0.083%) inhalation solution Dose : 2.5 mg = 3 mL, Inhalation, q6h, # 120 EA, 5 Refill(s), Pharmacy: [facility], Asthmatic bronchitis H/O neurofibromatosis, 158, cm, 07/23/23 15:36:00 EST, Height, kg, 07/23/23 15:36:00 EST, Dosing Weight Start Date: 07/23/23 Status: Ordered Start: 07-23-2023 take 2 puff(s) by in halation every six hours ProAir HFA MDI (90 mcg/inh) inhalation aerosol 2 puff(s), Inhalation, q6h, # 1 EA, 2 Refill(s), Pharmacy: [facility], Bronchospasm, 158, cm, 07/23/23 15:36:00 EST, Height, kg, 07/23/23 15:36:00 EST, Dosing Weight Start Date: 07/23/23 Status: Ordered Start: 04-29-2023 End: 04-17-2024 take 90 ug by inhalation every six hours as needed Albuterol Sulfate (Proair Respiclick) 90 mcg/actuation aerosol powdr breath activated Discontinued 1 NMA INHALATION EVERY 6 HOURS as needed for shortness of breath or wheezing 1 0 April 29, 2023 12:00am April 17, 2024 1:07pm Start: 01-29-2023 take 2 puff(s) by in halation every six hours ProAir HFA MDI (90 mcg/inh) inhalation aerosol 2 puff(s), Inhalation, q6h, # 1 EA, 2 Refill(s), [facility]acy: [id number], Bronchospasm, 155.5, cm, 01/10/23 7:47:00 EDT, Height, kg, 01/10/23 7:47:00 EDT, Dosing Weight Start Date: 01/29/23 Status: Ordered Start: 04-18-2022 take 2 puff(s) by in halation every six hours ProAir HFA MDI (90 mcg/inh) inhalation aerosol 2 puff(s), Inhalation, q6h, # 1 EA, 2 Refill(s), Pharmacy: [email or web address] #[id number], Bronchospasm, 156, cm, 04/18/22 11:12:00 EDT, Height, kg, 04/18/22 11:12:00 EDT, Dosing Weight Start Date: 04/18/22 Status: Ordered Start: 09-13-2021 take 1 dose by inhal ation every six hours albuterol 2.5 mg/3 mL (0.083%) inhalation solution Dose : 2.5 mg = 3 mL, Inhalation, q6h, # 120 EA, 0 Refill(s), Pharmacy: [facility] [address] Asthmatic bronchitis H/O neurofibromatosis, 157, cm, 09/13/21 12:57:00 EST, Height, kg, 09/13/21 12:57:00 EST, Dosing Weight Start Date: 09/13/21 Status: Ordered Start: 08-30-2021 take 2 puff(s) by in halation every six hours ProAir HFA MDI (90 mcg/inh) inhalation aerosol 2 puff(s), Inhalation, q6h, # 1 EA, 2 Refill(s), Pharmacy: [facility] [address] Bronchospasm, 157, cm, 08/30/21 13:30:00 EST, Height, kg, 08/30/21 13:30:00 EST, Dosing Weight Start Date: 08/30/21 Status: Ordered Start: 08-30-2021 take 2 puff(s) by in halation every six hours ProAir HFA MDI (90 mcg/inh) inhalation aerosol 2 puff(s), Inhalation, q6h, # 1 EA, 2 Refill(s), Pharmacy: [facility] [address] Bronchospasm, 157, cm, 08/30/21 13:30:00 EST, Height, kg, 08/30/21 13:30:00 EST, Dosing Weight Start Date: 08/30/21 Status: Ordered Start: 06-14-2021 take 2 puff(s) by in halation every six hours ProAir HFA MDI (90 mcg/inh) inhalation aerosol 2 puff(s), Inhalation, q6h, # 1 EA, 0 Refill(s), Pharmacy: [facility] Bronchospasm, 160, cm, 05/09/21 10:36:00 EDT, Height, kg, 05/09/21 10:36:00 EDT, Dosing Weight Start Date: 06/14/21 Status: Ordered Start: 02-22-2021 take 2 puff(s) by in halation every six hours ProAir HFA MDI (90 mcg/inh) inhalation aerosol 2 puff(s), Inhalation, q6h, # 1 EA, 2 Refill(s), [facility]acy: [id number] [address] Bronchospasm, 158, cm, 02/22/21 12:01:00 EDT, Height, kg, 02/22/21 12:01:00 EDT, Dosing Weight Start Date: 02/22/21 Status: Ordered ALPRAZolam 2 mg oral tablet (18 sources) Benzodiazepine Start: 12-04-2024 End: 03-04-2025 ALPRAZolam 2 mg oral tablet Dose : 2 mg = 1 tab(s), Oral, TID, # 270 tab(s), 0 Refill(s), Pharmacy: [facility], Generalized anxiety disorder, 155, cm, 12/04/24 15:47:00 EDT, Height, 75.3, kg, 12/04/24 15:47:00 EDT, Dosing Weight Start Date: 12/04/24 Stop Date: 03/04/25 Status: Ordered Quantity: 270.0 Unit: tab(s) Repeat number: 1 Indications: Generalized anxiety disorder; Start: 07-23-2023 End: 10-21-2023 ALPRAZolam 2 mg oral tablet Dose : 2 mg = 1 tab(s), Oral, TID, PRN as needed for anxiety, # 90 tab(s), 2 Refill(s), Pharmacy: [facility], Generalized anxiety disorder, 158, cm, 07/23/23 15:36:00 EST, Height, 69.4, kg, 07/23/23 15:36:00 EST, Dosing Weight Start Date: 07/23/23 Stop Date: 10/21/23 Status: Ordered Start: 04-12-2023 End: 07-11-2023 ALPRAZolam 2 mg oral tablet Dose : 2 mg = 1 tab(s), Oral, TID, PRN as needed for anxiety, # 90 tab(s), 2 Refill(s), Pharmacy: [facility], Generalized anxiety disorder, 152, cm, 04/12/23 15:13:00 EDT, Height, 70, kg, 04/12/23 15:13:00 EDT, Dosing Weight Start Date: 04/12/23 Stop Date: 07/11/23 Status: Ordered Start: 01-10-2023 End: 04-10-2023 ALPRAZolam 2 mg oral tablet Dose : 2 mg = 1 tab(s), Oral, TID, PRN as needed for anxiety, # 90 tab(s), 2 Refill(s), [facility]acy: [facility] #[id number], Generalized anxiety disorder, 155.5, cm, 01/10/23 7:47:00 EDT, Height, 70.5, kg, 01/10/23 7:47:00 EDT, Dosing Weight Start Date: 01/10/23 Stop Date: 04/10/23 Status: Ordered Start: 04-18-2022 End: 07-17-2022 ALPRAZolam 2 mg oral tablet Dose : 2 mg = 1 tab(s), Oral, TID, PRN as needed for anxiety, # 90 tab(s), 2 Refill(s), Pharmacy: [email or web address] #[id number], Generalized anxiety disorder, 156, cm, 04/18/22 11:12:00 EDT, Height, 70.2, kg, 04/18/22 11:12:00 EDT, Dosing Weight Start Date: 04/18/22 Stop Date: 07/17/22 Status: Ordered Start: 02-16-2022 End: 04-14-2022 ALPRAZolam 2 mg oral tablet Dose : 2 mg = 1 tab(s), Oral, TID, PRN as needed for anxiety, # 90 tab(s), 0 Refill(s), Pharmacy: [email or web address] #[id number], Generalized anxiety disorder, 158.5, cm, 02/28/22 9:53:00 EDT, Height, 68.2, kg, 03/15/22 10:20:00 EDT, Dosing Weight Start Date: 03/15/22 Stop Date: 04/14/22 Status: Ordered Start: 08-30-2021 End: 01-10-2022 ALPRAZolam 2 mg oral tablet Dose : 2 mg = 1 tab(s), Oral, TID, PRN as needed for anxiety, # 90 tab(s), 2 Refill(s), Pharmacy: [address] Generalised anxiety disorder, 157, cm, 10/12/21 13:08:00 EDT, Height, 71, kg, 10/12/21 13:08:00 EDT, Dosing Weight Start Date: 10/12/21 Stop Date: 01/10/22 Status: Ordered Start: 05-09-2021 End: 08-07-2021 ALPRAZolam 2 mg oral tablet Dose : 2 mg = 1 tab(s), Oral, TID, # 90 tab(s), 2 Refill(s), Pharmacy: [address] [facility], Anxiety, 160, cm, 05/09/21 10:36:00 EDT, Height, 69, kg, 05/09/21 10:36:00 EDT, Dosing Weight Start Date: 05/09/21 Stop Date: 08/07/21 Status: Ordered Start: 03-20-2019 take 1 tablet by faye th three times daily ALPRAZolam (XANAX) 2 MG tablet TAKE 1 TABLET BY MOUTH THREE TIMES DAILY FOR 30 DAYS 0 03/20/2019 Active Start: 06-19-2018 End: 04-17-2024 take 4 tablets by mouth three times daily Alprazolam 0.25 MG tablet Discontinued 1 mg PO THREE TIMES A DAY June 19, 2018 1:00am April 17, 2024 1:08pm Start: 06-19-2018 take 1 mg by mouth t hree times daily Alprazolam Active 1 MG PO THREE TIMES A DAY June 19, 2018 1:00am amoxicillin 875 mg / clavulanate 125 mg oral tablet (1 source) Penicillin-class Antibacterial Start: 02-28-2022 End: 03-10-2022 take 1 tablet by mouth every twelve hours amoxicillin-clavulanate 875 mg-125 mg oral tablet 1 tab(s), Oral, q12h, X 10 day(s), # 20 tab(s), 0 Refill(s), 03/10/22 10:31:00 EDT, [facility]acy: [facility] #[id number], Well adult exam Sinusitis, 158.5, cm, 02/28/22 9:53:00 EDT, Height, 69.4 Start Date: 02/28/22 Stop Date: 03/10/22 Status: Ordered aspirin 81 mg oral tablet (20 sources) Platelet Aggregation Inhibitor, Nonsteroidal Anti-inflammatory Drug Start: 05-15-2024 take 1 capsule by mouth once daily Aspirin 81 mg capsule Active 81 mg PO DAILY May 15, 2024 1:00am Start: 04-18-2024 End: 04-24-2025 take 1 tablet by mouth once daily aspirin, enteric coated (ASPIRIN, ENTERIC COATED) 81 mg EC tablet Take 1 tablet by mouth once daily. 30 tablet 4 06/05/2024 06/17/2024 Discontinued Blood Pressure Monitor (1 source) Start: 06-07-2024 End: 06-08-2024 Blood Pressure Monitor Use a s directed 1 Kit 06/07/2024 06/08/2024 Active Blood Pressure Monitoring (Comfort Touch BP Cuff/Medium) misc (5 sources) Start: 04-23-2024 Blood Pressure Monitoring (Comfort Touch BP Cuff/Medium) misc 1 kit 3 times daily. Take blood pressure twice per day and record results 1 each 04/23/2024 Active Start: 04-23-2024 End: 04-23-2024 Blood Pressure Monitoring (C omfort Touch BP Cuff/Medium) misc 1 kit 3 times daily. Take blood pressure twice per day and record results 1 each 04/23/2024 04/23/2024 Discontinued carbamide peroxide 65 mg/ml otic solution (5 sources) Start: 04-23-2024 End: 05-03-2024 carbamide peroxide (Debrox) 6.5 % otic solution Administer 5 drops into the right ear 2 times daily for 10 days. 15 mL 04/23/2024 05/03/2024 Active Start: 04-21-2024 End: 04-23-2024 5 drop, Right Ear, 2 times d aily, First dose on Sat04/21/24 at 1030 ciprofloxacin 750 mg oral tablet (1 source) Quinolone Antimicrobial Start: 04-01-2019 take 1 tablet by mouth every twelve hours ciprofloxacin (CIPRO) 750 MG tablet TAKE 1 TABLET BY MOUTH EVERY 12 HOURS FOR 10 DAYS 0 04/01/2019 Active diazePAM 5 mg oral tablet (1 source) Benzodiazepine End: 05-04-2024 take 1 tablet by mouth every eight hours as needed diazePAM (VALIUM) 5 mg tablet Take 5 mg by mouth every 8 hours as needed. 05/04/2024 Discontinued (Course of therapy completed) escitalopram 10 mg oral tablet (3 sources) Serotonin Reuptake Inhibitor Start: 07-15-2024 take 1 tablet by mouth once daily escitalopram oxalate (LEXAPRO) 10 mg tablet Take 1 tablet by mouth once daily. 30 tablet 3 07/15/2024 Active famotidine 20 mg oral tablet (20 sources) Histamine-2 Receptor Antagonist Start: 05-15-2024 take 1 tablet by mouth once daily Famotidine 20 mg tablet Active 20 mg PO DAILY May 15, 2024 1:00am heartburn Start: 04-19-2024 End: 04-23-2025 take 1 tablet by mouth twice daily before mealtime famotidine (PEPCID AC) 20 mg tablet Take 1 tablet by mouth two times a day. 60 tablet 3 06/05/2024 06/17/2024 Discontinued FeroSul 325 mg (65 mg elemental iron) oral tablet (1 source) Start: 01-27-2024 FeroSul 325 mg (65 mg elemental iron) oral tablet Dose : 325 mg = 1 tab(s), 0 Refill(s) Start Date: 01/27/24 Status: Ordered fluticasone propionate 0.05 mg/actuat metered dose nasal spray (20 sources) Corticosteroid Start: 04-20-2024 End: 04-23-2025 take 1 spray(s) nasal route twice daily fluticasone (Flonase) 50 MCG/ACT nasal spray Administer 1 spray into each nostril 2 times daily. Shake gently. Before first use, prime pump. After use, clean tip and replace cap. 16 g 12 04/23/2024 04/23/2025 Active Start: 04-12-2023 End: 01-19-2024 take 1 dose nasal route once daily Flonase 50 mcg/inh nasal spray Dose = 2 spray(s), Nostril, each, qDay, # 15.8 mL, 5 Refill(s), Pharmacy: [facility], 158, cm, 07/23/23 15:36:00 EST, Height, kg, 07/23/23 15:36:00 EST, Dosing Weight Start Date: 07/23/23 Stop Date: 01/19/24 Status: Ordered Quantity: 15.8 Unit: mL Repeat number: 6 Start: 10-12-2022 End: 04-10-2023 take 1 dose nasal route once daily Flonase 50 mcg/inh nasal spray Dose = 2 spray(s), Nostril, each, qDay, # 15.8 mL, 5 Refill(s), Pharmacy: [email or web address] #[id number], 156, cm, 10/12/22 10:46:00 EDT, Height, kg, 10/12/22 10:46:00 EDT, Dosing Weight Start Date: 10/12/22 Stop Date: 04/10/23 Status: Ordered Start: 03-16-2022 End: 09-12-2022 take 1 dose nasal route once daily Flonase 50 mcg/inh nasal spray Dose = 2 spray(s), Nostril, each, qDay, # 15.8 mL, 5 Refill(s), Pharmacy: [email or web address] #[id number], 158.5, cm, 02/28/22 9:53:00 EDT, Height, kg, 03/15/22 10:20:00 EDT, Dosing Weight Start Date: 03/16/22 Stop Date: 09/12/22 Status: Ordered Start: 02-22-2021 End: 08-21-2021 take 1 dose nasal route once daily Flonase 50 mcg/inh nasal spray Dose = 2 spray(s), Nostril, each, qDay, # 15.8 mL, 5 Refill(s), Pharmacy: [email or web address] 158, cm, 02/22/21 12:01:00 EDT, Height, kg, 02/22/21 12:01:00 EDT, Dosing Weight Start Date: 02/22/21 Stop Date: 08/21/21 Status: Ordered take 1 spray(s) nasa l route once daily fluticasone (FLONASE) 50 mcg/actuation nasal spray Use 1 [place] in each nostril once daily. Active folic acid 1 mg oral tablet (20 sources) Start: 04-29-2024 take 3 tablets by mouth once daily folic acid 1 mg tablet Take 3 tablets by mouth once daily. 90 tablet 5 04/29/2024 Active End: 04-24-2024 take 1 tablet by mouth once daily folic acid 1 mg tablet Take 1 mg by mouth once daily. 04/24/2024 Discontinued gabapentin 100 mg oral capsule (5 sources) Anti-epileptic Agent Start: 04-12-2023 End: 01-19-2024 gabapentin 100 mg oral capsule Dose : 100 mg = 1 cap(s), Oral, TID, # 90 cap(s), 5 Refill(s), Pharmacy: [facility], Neuropathy, 158, cm, 07/23/23 15:36:00 EST, Height, 69.4, kg, 07/23/23 15:36:00 EST, Dosing Weight Start Date: 07/23/23 Stop Date: 01/19/24 Status: Ordered Start: 10-12-2022 End: 04-10-2023 gabapentin 100 mg oral capsu le Dose : 100 mg = 1 cap(s), Oral, TID, # 90 cap(s), 5 Refill(s), Pharmacy: [email or web address] #[id number], Neuropathy, 156, cm, 10/12/22 10:46:00 EDT, Height, 73.4, kg, 10/12/22 10:46:00 EDT, Dosing Weight Start Date: 10/12/22 Stop Date: 04/10/23 Status: Ordered ibuprofen 600 mg oral tablet (5 sources) Nonsteroidal Anti-inflammatory Drug Start: 06-05-2024 End: 06-15-2024 take 1 tablet by mouth every six hours as needed ibuprofen (MOTRIN) 600 mg tablet Take 1 tablet by mouth every 6 hours as needed for pain for up to 10 days. 30 tablet 06/05/2024 06/15/2024 Active End: 05-04-2024 Ibuprofen 200 mg cap Take 1- 3 capsules by mouth as needed. 05/04/2024 Discontinued (Course of therapy completed) IBUPROFEN/DIPHENHYDRAMINE CIT (ADVIL PM ORAL) (1 source) End: 05-04-2024 IBUPROFEN/DIPHENHYDRAMINE CIT (ADVIL PM ORAL) Take by mouth as needed. 05/04/2024 Discontinued (Course of therapy completed) labetalol hydrochloride 200 mg oral tablet (20 sources) beta-Adre nergic Erica Start: 06-06-2024 End: 09-04-2024 take 4 tablets by mouth every eight hours in the evening labetalol (TRANDATE) 200 mg tablet Take 4 tablets by mouth every 8 hours. 1080 tablet 06/08/2024 3:21 PM EST 06/06/2024 Active Start: 05-30-2024 End: 05-30-2024 labetalol Start: 05/30/24 9: 00:00 AM EST, Dose = 600 mg, = 6 tab(s), Oral, 0, 05/30/24 7:35:00 EST Start Date: 05/30/24 Stop Date: 05/30/24 Status: Completed Start: 05-30-2024 End: 05-30-2024 labetalol Start: 05/30/24 7: 45:00 AM EST, Dose = 20 mg, = 4 mL, IV Push, Once, Stop: 05/30/24 7:50:31 AM EST, 05/30/24 7:45:00 EST Start Date: 05/30/24 Stop Date: 05/30/24 Status: Completed Start: 05-26-2024 End: 07-01-2024 take 2 tablets by mouth three times daily labetalol (TRANDATE) 300 mg tablet Take 2 tablets by mouth three times a day. 180 tablet 06/01/2024 07/01/2024 Active Start: 05-15-2024 End: 05-26-2024 take 2 tablets by mouth three times daily labetalol (TRANDATE) 200 mg tablet Take 2 tablets by mouth three times a day. 180 tablet 3 05/15/2024 05/26/2024 Discontinued Start: 05-15-2024 take 1 tablet by faye th every eight hours Labetalol 200 mg tablet Active 200 mg PO Q8H May 15, 2024 1:00am Gestational Hypertension Start: 04-30-2024 End: 05-15-2024 take 1 tablet by mouth three times daily labetalol (TRANDATE) 200 mg tablet Take 1 tablet by mouth three times a day. 90 tablet 3 05/15/2024 05/15/2024 Discontinued Start: 04-23-2024 End: 04-23-2025 take 1 tablet by mouth every eight hours labetalol (Normodyne) 200 MG tablet Take 1 tablet (200 mg) by mouth in the morning and 1 tablet (200 mg) at noon and 1 tablet (200 mg) before bedtime. 90 tablet 11 04/23/2024 04/23/2025 Active Start: 04-22-2024 End: 04-23-2024 take 1 tablet by mouth every eight hours 200 mg, Oral, Every 8 hours, First dose (after last modification) on Sat04/22/24 at 1800 Start: 04-21-2024 20 mg, IntraVE Nous, Once, On Sat04/21/24 at 2045, For 1 dose Start: 04-21-2024 Starting on 04/21/24 at 2035, For 1 dose, Jannet Bliss: cabinet override levETIRAcetam 100 mg/ml oral solution (20 sources) Start: 04-30-2024 take 1 dose by mouth once daily levETIRAcetam 100 mg/mL oral solution Dose : 1,000 mg = 10 mL, Oral, qDay, # 300 mL, 0 Refill(s) Start Date: 04/30/24 Status: Ordered Start: 04-23-2024 End: 04-23-2025 take 10 mL by mouth once daily levETIRAcetam (Keppra) 100 MG/ML solution Take 10 mL (1,000 mg) by mouth Nightly. 300 mL 11 04/23/2024 04/23/2025 Active Start: 04-18-2024 End: 04-23-2024 take 1000 mg by mouth once daily 1,000 mg, Oral, Nightly, First dose (after last modification) on Sat04/18/24 at 2100 Start: 04-17-2024 End: 04-17-2024 take 1000 mg by mouth twice daily 1,000 mg, Oral, 2 times daily, First dose on Sat04/17/24 at 2100 Start: 04-01-2019 End: 04-17-2024 levETIRAcetam 500 mg oral ta blet Dose : 500 mg = 1 tab(s), Oral, BID, # 60 tab(s), 5 Refill(s), Pharmacy: [facility], 158, cm, 07/23/23 15:36:00 EST, Height, kg, 07/23/23 15:36:00 EST, Dosing Weight Start Date: 07/23/23 Stop Date: 01/19/24 Status: Ordered take 2 tablets by [facility] twice daily levETIRAcetam (KEPPRA) 500 mg tablet Take 1,000 mg by mouth two times a day. Active End: 04-23-2024 levETIRAcetam (Keppra) 100 M G/ML solution 04/23/2024 Discontinued (Stop taking at discharge) 1 ml medroxyPROGESTERone acetate 150 mg/ml injection (1 source) Progestin End: 05-04-2024 medroxyPROGESTERone (DEPO-PROVERA) 150 mg/mL injection Inject 150 mg intramuscularly every 12 weeks. 05/04/2024 Discontinued (Course of therapy completed) miconazole nitrate 0.02 mg/mg topical ointment (1 source) Azole Antifungal Start: 06-18-2024 End: 07-02-2024 miconazole nitrate (CRITIC-AID;ALOE VESTA) 2 % oint Indications: Candidiasis of breast , Lactating mother , thrush Apply to affected area two times a day for 14 days. 56.7 g 1 06/18/2024 07/02/2024 Active naproxen sodium 220 mg oral tablet (1 source) Nonsteroidal Anti-inflammato ry Drug End: 05-04-2024 take 1 tablet by mouth once daily at bedtime naproxen sodium (ANAPROX) 220 mg tablet Take 220 mg by mouth daily at bedtime. 05/04/2024 Discontinued (Course of therapy completed) 24 hr nicotine 0.583 mg/hr transdermal system (12 sources) Cholinergic Nicotinic Agonist Start: 04-30-2024 apply 1 dose transdermal route once daily nicotine 14mg / 24hrs transdermal patch Dose = 1 patch(es), Transdermal, qDay, apply to skin, # 30 patch(es), 0 Refill(s) Start Date: 04/30/24 Status: Ordered Start: 04-24-2024 End: 05-30-2024 nicotine (Nicoderm, Step 2) 14 MG/24HR patch Place 1 patch on the skin daily for 36 doses. 28 patch 1 04/24/2024 05/30/2024 Active Start: 04-18-2024 End: 04-23-2024 nicotine (Nicoderm, Step 2) 14 MG/24HR patch 1 patch Start: 06-14-2021 End: 10-12-2021 apply 1 dose transdermal route once daily NicoDerm CQ 21 mg/24 hr transdermal patch Dose = 1 patch(es), Transdermal, Daily, X 30 day(s), # 30 patch(es), 3 Refill(s), [facility], cm, 05/09/21 10:36:00 EDT, Height, kg, 05/09/21 10:36:00 EDT, Dosing Weight Start Date: 06/14/21 Stop Date: 10/12/21 Status: Ordered End: 05-12-2024 nicotine (NICODERM) 7 mg/24 hr Apply 1 Patch as directed every 24 hours. 05/12/2024 Discontinued NIFEdipine 60 mg osmotic 24 hr extended release oral tablet (20 sources) Dihydropyridine Calcium Channel Erica Start: 05-30-2024 End: 05-30-2024 Procardia XL Start: 05/30/24 9:00:00 AM EST, Dose = 60 mg, = 2 tab(s), Oral, 0, 05/30/24 7:44:00 EST Start Date: 05/30/24 Stop Date: 05/30/24 Status: Completed Start: 05-15-2024 End: 09-06-2024 take 1 tablet by mouth twice daily in the evening NIFEdipine ER (PROCARDIA XL) 60 mg 24 hr tablet Take 1 tablet by mouth two times a day. 180 tablet 06/08/2024 3:21 PM EST 06/06/2024 Active Start: 05-12-2024 End: 07-01-2024 take 1 tablet by mouth twice daily NIFEdipine XL (ADALAT CC) 60 mg 24 hr tablet Take 1 tablet by mouth two times a day. 60 tablet 06/01/2024 07/01/2024 Active Start: 04-30-2024 NIFEdipine (Eq v-Procardia XL) 60 mg oral tablet, extended release Dose : 60 mg = 1 tab(s), Oral, BID, # 30 tab(s), 0 Refill(s) Start Date: 04/30/24 Status: Ordered Start: 04-23-2024 End: 04-23-2025 take 1 tablet by mouth every twenty-four hours in the morning NIFEdipine XL (Procardia XL) 60 MG 24 hr tablet Take 1 tablet (60 mg) by mouth in the morning and 1 tablet (60 mg) in the evening. 60 tablet 11 04/23/2024 04/23/2025 Active Start: 04-21-2024 End: 04-23-2024 take 60 mg by mouth once daily 60 mg, Oral, Daily, Fir st dose on Sat04/22/24 at 0900, Do not crush, chew, or split. Start: 04-20-2024 End: 04-21-2024 take 30 mg by mouth twice daily 30 mg, Oral, 2 times d aily, First dose (after last modification) on Sat04/20/24 at 0900, Do not crush, chew, or split. Start: 04-18-2024 End: 04-19-2024 take 30 mg by mouth once 30 mg, Oral, Once, On Sat at 1015, For 1 dose, Do not crush, chew, or split. End: 05-12-2024 take 1 tablet by mouth once daily NIFEdipine XL (ADALAT CC) 60 mg 24 hr tablet Take 60 mg by mouth once daily. 05/12/2024 Discontinued (Adjust Sig - Block E-Cancel) Nirmatrelvir-Ritonavir (1 source) Start: 04-29-2023 Nirmatrelvir-Ritonavir (Paxlovid) 300 mg (150 mg x 2)-100 mg tablets,dose pack Active 0 PO .COMPLEX April 29, 2023 12:00am take TWO 150 mg tablets of nirmatrelvir with ONE 100 mg tablet of ritonavir twice daily for 5 days ofloxacin 3 mg/ml otic solution (1 source) Quinolone Antimicrobial Start: 02-24-2013 End: 05-04-2024 ofloxacin 0.3 % otic solution Use 5 Drops in the left ear twice daily. 1 Bottle 0 02/24/2013 05/04/2024 Discontinued (Course of therapy completed) ondansetron 4 mg oral tablet (1 source) Serotonin-3 Receptor Antagonist Start: 01-31-2023 End: 02-05-2023 ondansetron 4 mg oral tablet Dose : 4 mg = 1 tab(s), Oral, q6h, PRN Nausea/Vomiting, X 5 day(s), # 20 tab(s), 0 Refill(s), 02/05/23 7:36:00 AM EDT, [facility]: [id number], Nausea Otalgia of left ear, 155.5, cm, 01/31/23 7:09:00 EDT, Height, kg, 01/31/23 7:09:00 EDT, Dosing Weight Start Date: 01/31/23 Stop Date: 02/05/23 Status: Ordered oxyCODONE hydrochloride 5 mg oral tablet (2 sources) Opioid Agonist Start: 06-05-2024 End: 06-09-2024 take 1 tablet by mouth every six hours as needed oxyCODONE IR (ROXICODONE) 5 mg immediate release tablet Indications: Labor and delivery indication for care or intervention , Acute pulmonary edema (HCC) , Anomaly of heart of fetus affecting , antepartum, single or unspecified fetus , Chronic hypertension affecting Take 1 tablet by mouth every 6 hours as needed for up to 3 days. 10 tablet 06/05/2024 06/09/2024 Active [facility]95-Ferrous Fumarate-Fa () 28 mg iron- 800 mcg tablet (1 source) Start: 04-17-2024 [facility]#95-Ferrous Fumarate-Fa () 28 mg iron- 800 mcg tablet Active 1 {tbl} PO DAILY April 17, 2024 12:00am Multivitamins with Vitamin B Complex, Vitamin C, Minerals and L-Methylfolate oral capsule (7 sources) Start: 11-26-2023 take 1 capsule by mouth once daily Multivitamins with Vitamin B Complex, Vitamin C, Minerals and L-Methylfolate oral capsule Dose = 1 cap(s), Oral, Daily, # 30 cap(s), 0 Refill(s), other reason (Rx) Start Date: 11/26/23 Status: Ordered Quantity: 30.0 Unit: cap(s) Repeat number: 1 Start: 11-26-2023 take 1 capsule by [facility] once daily Multivitamins with Vitamin B Complex, Vitamin C, Minerals and L-Methylfolate oral capsule Dose = 1 cap(s), Oral, Daily, # 30 cap(s), 0 Refill(s), other reason (Rx) Start Date: 11/26/23 Status: Ordered BE-Xeg-IT-[place]-3 (Vitafusion ) 0.18-32.5 MG chewable tablet (3 sources) MV-Min- FA-[place]-3 (Vitafusion ) 0.18-32.5 MG chewable tablet Chew 2 capsules in the morning. GUMMIES-AFTER BREAKFAST OR LUNCH. Active Plus Iron oral tablet (1 source) Start: 04-30-2024 take 1 tablet by mouth once daily Plus Iron oral tablet Dose = 1 tab(s), Oral, Daily, # 30 tab(s), 0 Refill(s) Start Date: 04/30/24 Status: Ordered vit/iron fum/folic ac (RIGHT STEP VITAMINS ORAL) (20 sources) vit/iro n fum/folic ac (RIGHT STEP VITAMINS ORAL) Take by mouth. Gummy Suspended vit/iro n fum/folic ac (RIGHT STEP VITAMINS ORAL) Take by mouth. Gummy Active rizatriptan 10 mg oral tablet (8 sources) Serotonin-1b and Serotonin-1d Receptor Agonist Start: 04-12-2023 End: 04-17-2024 rizatriptan 10 mg oral tablet Dose : 10 mg = 1 tab(s), Oral, qDay, take 1 tablet by mouth AT ONSET OF HEADACHE may repeat in 2 hours... (REFER TO PRESCRIPTION NOTES)., # 9 tab(s), 1 Refill(s), Pharmacy: [facility], 158, cm, 07/23/23 15:36:00 EST, Height, kg, 07/23/23 15:36:00 EST, Dosing Weight Start Date: 07/23/23 Stop Date: 09/21/23 Status: Ordered Start: 10-12-2022 End: 12-11-2022 rizatriptan 10 mg oral table t Dose : 10 mg = 1 tab(s), Oral, qDay, take 1 tablet by mouth AT ONSET OF HEADACHE may repeat in 2 hours... (REFER TO PRESCRIPTION NOTES)., # 9 tab(s), 1 Refill(s), [facility]: [id number], 156, cm, 10/12/22 10:46:00 EDT, Height Start Date: 10/12/22 Stop Date: 12/11/22 Status: Ordered Start: 04-18-2022 take 1 tablet by faye th every two hours rizatriptan 10 mg oral tablet take 1 tablet by mouth AT ONSET OF HEADACHE may repeat in 2 hours... (REFER TO PRESCRIPTION NOTES). Start Date: 04/18/22 Status: Ordered sertraline 50 mg oral tablet (20 sources) Serotonin Reuptake Inhibitor Start: 04-21-2024 End: 04-24-2025 take 1 tablet by mouth once daily sertraline (Zoloft) 50 MG tablet Take 1 tablet (50 mg) by mouth daily. 30 tablet 11 04/24/2024 04/24/2025 Active sulfamethoxazole 800 mg / trimethoprim 160 mg oral tablet (4 sources) Dihydrofolate Reductase Inhibitor Antibacterial, Sulfonamide Antimicrobial Start: 12-04-2024 End: 12-11-2024 take 1 tablet by mouth twice daily Bactrim DS 800 mg-160 mg oral tablet Dose = 1 tab(s), Oral, BID, X 7 day(s), # 14 tab(s), 0 Refill(s), Pharmacy: [facility], 155, cm, 12/04/24 15:47:00 EDT, Height, 75.3, kg, 12/04/24 15:47:00 EDT, Dosing Weight Start Date: 12/04/24 Stop Date: 12/11/24 Status: Ordered Quantity: 14.0 Unit: tab(s) Repeat number: 1 Indications: Unspecified asthma, uncomplicated; Urinary tract infection, site not specified; Generalized anxiety disorder; Anemia, unspecified; Dysuria; Essential (primary) hypertension; Start: 01-31-2023 End: 02-10-2023 take 1 tablet by mouth twice daily Bactrim DS 800 mg-160 mg oral tablet Dose = 1 tab(s), Oral, BID, X 10 day(s), # 20 tab(s), 0 Refill(s), Pharmacy: [email or web address] #[id number], 155.5, cm, 01/31/23 7:09:00 EDT, Height, 70.2, kg, 01/31/23 7:09:00 EDT, Dosing Weight Start Date: 01/31/23 Stop Date: 02/10/23 Status: Ordered Start: 05-09-2021 End: 05-16-2021 take 1 tablet by mouth twice daily Bactrim DS 800 mg-160 mg oral tablet Dose = 1 tab(s), Oral, BID, X 7 day(s), # 14 tab(s), 0 Refill(s), Pharmacy: [facility], 160, cm, 05/09/21 10:36:00 EDT, Height, 69, kg, 05/09/21 10:36:00 EDT, Dosing Weight Start Date: 05/09/21 Stop Date: 05/16/21 Status: Ordered Triamcinolone (1 source) Corticosteroid End: 05-04-2024 TRIAMCINOLONE ACETONIDE NASAL Use in the nose once daily. 05/04/2024 Discontinued (Course of therapy completed) Vitamin C 500 mg oral tablet (1 source) Start: 01-27-2024 Vitamin C 500 mg oral tablet Dose : 500 mg = 1 tab(s), 0 Refill(s) Start Date: 01/27/24 Status: Ordered Completed/Discontinued Medications Medication Drug Class(es) Dates Sig (Normalized) Sig (Original) betamethasone 3 mg/ml / betamethasone acetate 3 mg/ml injectable suspension (2 sources) Corticosteroid Start: 04-18-2024 End: 04-18-2024 inject 12 mg by intramuscular injection every twenty-four hours 12 mg, IntraMUSCular, Every 24 hours, First dose on 04/18/24 at 1445, For 1 dose bisoprolol fumarate 5 mg / hydroCHLOROthiazide 6.25 mg oral tablet (14 sources) Thiazide Diuretic, beta-Adrenergic Erica Start: 04-29-2023 take 1 tablet by mouth once daily Bisoprolol-Hyd rochlorothiazi de Active 1 TABLET PO DAILY April 29, 2023 12:00am Start: 04-12-2023 End: 04-17-2024 Bisoprolol-Hydrochlorothiazi de 5-6.25 mg tablet Discontinued 1 {tbl} PO DAILY April 29, 2023 12:00am April 17, 2024 1:08pm Start: 10-12-2022 End: 04-10-2023 take 1 tablet by mouth once daily bisoprolol-hydrochlorothiazide 5 - 6.25 mg oral tablet Dose = 1 tab(s), Oral, Daily, # 30 tab(s), 5 Refill(s), Pharmacy: [email or web address] #[id number], Overweight Hypertension, 156, cm, 10/12/22 10:46:00 EDT, Height, kg, 10/12/22 10:46:00 EDT, Dosing Weight Start Date: 10/12/22 Stop Date: 04/10/23 Status: Ordered Start: 01-09-2022 End: 07-08-2022 take 1 tablet by mouth once daily bisoprolol-hydrochlorothiazide 5 - 6.25 mg oral tablet Dose = 1 tab(s), Oral, Daily, # 30 tab(s), 5 Refill(s), [facility] [address] Overweight Hypertension, 157, cm, 01/09/22 14:13:00 EDT, Height, kg, 01/09/22 14:13:00 EDT, Dosing Weight Start Date: 01/09/22 Stop Date: 07/08/22 Status: Ordered Start: 05-09-2021 End: 11-05-2021 take 1 tablet by mouth once daily bisoprolol-hydrochlorothiazide 5 - 6.25 mg oral tablet Dose = 1 tab(s), Oral, Daily, # 30 tab(s), 5 Refill(s), Pharmacy: [facility] [address] Overweight Hypertension, 160, cm, 05/09/21 10:36:00 EDT, Height, kg, 05/09/21 10:36:00 EDT, Dosing Weight Start Date: 05/09/21 Stop Date: 11/05/21 Status: Ordered calcium carbonate 500 mg chewable tablet (2 sources) Start: 04-18-2024 End: 04-23-2024 take 1 tablet by mouth every six hours as needed for gastroesophageal reflux disease 500 mg, Oral, Every 6 hours PRN, indigestion, heartburn, Starting on 04/18/24 at 2145 10 ml calcium gluconate 100 mg/ml injection (2 sources) Start: 04-18-2024 End: 04-23-2024 1 g, IntraVENous, PRN, For suspected magnesium toxicity or for respiratory rate less than 6 per minute., Starting on 04/18/24 at 0459, Administer slow IV push over 5 minutes. dicyclomine hydrochloride 10 mg oral capsule (3 sources) Anticholinergic Start: 11-10-2017 End: 12-09-2017 take 2 capsules by mouth three times daily before mealtime Dicyclomine 10 MG capsule Discontinued 20 mg PO THREE TIMES DAILY BEFORE MEALS November 10, 2017 12:00am December 09, 2017 1:42am Start: 11-10-2017 End: 12-09-2017 take 20 mg by mouth three times daily before mealtime Dicyclomine Discontinued 20 MG PO THREE TIMES DAILY BEFORE MEALS November 10, 2017 12:00am December 09, 2017 1:42am 1 ml diphenhydrAMINE hydrochloride 50 mg/ml cartridge (4 sources) Histamine-1 Receptor Antagonist Start: 04-22-2024 End: 04-23-2024 take 25 mg intravenously every six hours as needed 25 mg, IntraVENous, Every 6 hours PRN, itching, Starting on 04/22/24 at 0023 Start: 04-18-2024 End: 04-23-2024 take 1 tablet by mouth every six hours as needed 25 mg, Oral, Every 6 hours PRN, itching, Starting on 04/18/24 at 0641 docusate sodium 100 mg oral capsule (2 sources) Start: 04-18-2024 End: 04-23-2024 take 100 mg by mouth twice daily as needed for constipation 100 mg, Oral, 2 times daily PRN, constipation, Starting on 04/18/24 at 2142, 2nd line Do not crush or break. {24 (drospirenone 3 MG / Ethinyl Estradiol 0.02 MG Oral Tablet) / 4 (Inert Ingredients 1 MG Oral Tablet) } Pack [Roxie 28 Day] (7 sources) Progestin, Estrogen Start: 07-23-2023 take 1 tablet by mouth once daily Roxie 3 mg-0.02 mg oral tablet Dose = 1 tab(s), Oral, Daily, # 28 tab(s), 5 Refill(s), Pharmacy: [facility], 158, cm, 07/23/23 15:36:00 EST, Height, kg, 07/23/23 15:36:00 EST, Dosing Weight Start Date: 07/23/23 Status: Ordered Start: 04-29-2023 End: 04-17-2024 Drospirenone-Ethinyl Estradi ol 3-0.02 mg tablet Discontinued 1 {tbl} PO DAILY April 29, 2023 12:00am April 17, 2024 1:08pm Start: 04-29-2023 take 1 tablet by [facility] once daily Drospirenone-Ethinyl Estradiol Active 1 TABLET PO DAILY April 29, 2023 12:00am Start: 04-12-2023 take 1 tablet by [facility] once daily Roxie 3 mg-0.02 mg oral tablet Dose = 1 tab(s), Oral, Daily, # 28 tab(s), 5 Refill(s), Pharmacy: [facility], 152, cm, 04/12/23 15:13:00 EDT, Height, kg, 04/12/23 15:13:00 EDT, Dosing Weight Start Date: 04/12/23 Status: Ordered Start: 01-03-2023 take 1 tablet by [facility] once daily Roxie 3 mg-0.02 mg oral tablet Dose = 1 tab(s), Oral, Daily, # 28 tab(s), 5 Refill(s), [facility]: [facility] #[id number], 156, cm, 10/12/22 10:46:00 EDT, Height Start Date: 01/03/23 Status: Ordered famotidine (Pepcid) 20 mg in sodium chloride (PF) 0.9 % 10 mL injection (2 sources) Start: 04-17-2024 End: 04-19-2024 take 10 mL intravenously every twelve hours as needed 20 mg, IntraVENous, Administer over 2 Minutes, Every 12 hours PRN, heartburn, indigestion, Starting on Sat04/17/24 at 2341, IV Push over minimum of 2 minutes - Dilute with 10 mL NS Flonase 50 mcg/inh nasal spray (3 sources) Start: 02-22-2021 End: 08-21-2021 take 1 dose nasal route once daily Flonase 50 mcg/inh nasal spray Dose = 2 spray(s), Nostril, each, qDay, # 15.8 mL, 5 Refill(s), [facility]: [facility] 158, cm, 02/22/21 12:01:00 EDT, Height, kg, 02/22/21 12:01:00 EDT, Dosing Weight Start Date: 02/22/21 Stop Date: 08/21/21 Status: Ordered 12 hr guaiFENesin 600 mg extended release oral tablet (2 sources) Start: 04-17-2024 End: 04-23-2024 take 600 mg by mouth twice daily as needed for cough 600 mg, Oral, 2 times daily PRN, cough, Starting on Sat04/17/24 at 2258, Administer with plenty of fluids to ensure proper action. Do not crush, chew, or split. iv contrast (will be provided with radiology test) (5 sources) Start: 11-13-2017 End: 05-12-2024 inject 1 dose intravenously once iv contrast (will be provided with radiology test) MRI Brain Inject, intravenously, once for 1 [...] in the MR contrast administration guidelines link 1 Each 11/13/2017 05/12/2024 Discontinued Start: 11-13-2017 inject 1 dose intravenously on ce iv contrast (will be provided with radiology test) MRI Brain Inject, intravenously, once for 1 [...] in the MR contrast administration guidelines link 1 Each 11/13/2017 Active levonorgestrel 0.548711 mg/hr intrauterine system (5 sources) Progestin, Progestin-containing Intrauterine Device Start: 07-15-2024 End: 07-15-2024 1 Each, INTRAUTERINE, ONCE (UP TO 30 DAYS AMB), 1 dose, On Sat07/15/24 at 1630, Hazardous Potential Reproductive Risk Drug: Use appropriate PPE. Start: 07-15-2024 End: 07-13-2032 levonorgestrel (MIRENA) 21 m cg/24hr (up to 8 yrs) 52 mg IUD Indications: Encounter for IUD insertion 1 Each by INTRAUTERINE route as directed. 1 Each 07/15/2024 07/13/2032 Active 500 ml magnesium sulfate 40 mg/ml injection (2 sources) Start: 04-18-2024 End: 04-20-2024 take 20 g intravenously every hour 2,000 mg/hr (50 mL/hr), IntraVENous, Continuous, Starting on 04/18/24 at 0530, Pre-Infusion: Assess baseline vital signs (blood pressure, pulse, pulse oximetry, respirations, and temperature), breath sounds, strict intake and output, neurologic status (deep tendon reflexes, presence or absence of clonus, level of consciousness (LOC), presence of headaches/visual disturbances, presence/absence of epigastric pain, and if applicable Heart Rate/Contractions (continuous monitoring). Loading Dose/Infusion: - Stay with the patient during the loading dose and the first hour of the infusion to monitor for adverse reactions. - Continuously monitor the patient's pulse oximetry. - Monitor the patient's vital signs, deep tendon reflexes, level of consciousness every 15 minutes for the first hour after the start of the loading dose, then every 30 minutes for 1 hour, then every 4 hours thereafter unless more frequent assessments are warranted based on the patient's condition. After delivery, run oxytocin per post delivery orders, then resume 125cc/hr total IV fluid restriction. Notify care provider immediately of absent deep tendon reflexes, a urine output of less than 30 mL/hour, respirations of less than 10 breaths/minute, or an oxygen saturation level of less than 95% Grams to milligrams conversion table: 1 gram = 1000 mg 2 grams = 2000 mg 4 grams = 4000 mg 6 grams = 6000 mg 20 grams = 20,000 mg metoclopramide 10 mg oral tablet (2 sources) Dopamine-2 Receptor Antagonist Start: 04-20-2024 End: 04-20-2024 take 10 mg by mouth once 10 mg, Oral, Once, On 04/20/24 at 1345, For 1 dose Nirmatrelvir-Ritona vir (Paxlovid) 300 mg (150 mg x 2)-100 mg tablets,dose pack (1 source) Start: 04-29-2023 End: 04-17-2024 Nirmatrelvir-Ritonavi r (Paxlovid) 300 mg (150 mg x 2)-100 mg tablets,dose pack Discontinued 0 PO .COMPLEX 30 0 April 29, 2023 12:00am April 17, 2024 1:08pm take TWO 150 mg tablets of nirmatrelvir with ONE 100 mg tablet of ritonavir twice daily for 5 days Non-Formulary Medication (2 sources) Start: 04-19-2024 End: 04-23-2024 1 Units, Oral, Daily, First dose on 04/19/24 at 0600, Drug Name: gummy vitamins, Form: chewable tablet, Length of Therapy: Indefinite, How soon needed? (normally 72 hrs needed to procure): 0-24 hrs, Reason for Non-Formulary: patient preference ondansetron ODT (Zofran-ODT) disintegrating tablet 4 mg (2 sources) Start: 04-17-2024 End: 04-23-2024 take 1 tablet by mouth every eight hours as needed for nausea and vomiting ondansetron ODT (Zofran-ODT) disintegrating tablet 4 mg penicillin v potassium 500 mg oral tablet (11 sources) Start: 04-23-2024 End: 05-10-2024 penicillin V potassium 500 mg oral tablet Dose : 500 mg = 1 tab(s), Oral, BID, # 20 tab(s), 0 Refill(s), 75.7 Start Date: 04/30/24 Stop Date: 05/10/24 Status: Ordered Start: 04-19-2024 End: 04-23-2024 take 500 mg by mouth twice daily 500 mg, Oral, 2 times daily, First dose on 04/19/24 at 0900, Suspected Indication (Select all that apply): Head and Neck Infection Start: 04-17-2024 End: 05-15-2024 take 1 tablet by mouth every twelve hours Penicillin V Potassium 500 mg tablet Discontinued 500 mg PO Q12H April 17, 2024 12:00am May 15, 2024 1:12pm End: 04-23-2024 penicillin V (Veetid) 250 MG /5ML suspension Take 500 mg by mouth. 04/23/2024 Discontinued (Stop taking at discharge) End: 04-23-2024 penicillin V (Veetid) 250 MG tablet Take 500 mg by mouth 2 times daily. FOR DENTAL PROCEDURE 04/23/2024 Discontinued (Stop taking at discharge) polyethylene glycol 3350 [id number] mg powder for oral solution (2 sources) Osmotic Laxative Start: 04-18-2024 End: 04-23-2024 take 17 g by mouth every twenty-four hours as needed for constipation 17 g, Oral, Daily PRN, constipation, Starting on 04/18/24 at 2142, 1st line vitamin tablet (2 sources) Start: 04-18-2024 End: 04-23-2024 take 1 tablet by mouth once daily 1 tablet, Oral, Daily, First dose (after last modification) on 04/18/24 at 0900 5 ml sodium chloride 9 mg/ml injection (6 sources) Start: 04-17-2024 End: 04-23-2024 10 mL, IntraVENous, Every 12 hours scheduled (2 times per day), First dose on Sat04/17/24 at 2100 Start: 04-17-2024 End: 04-23-2024 Start: 04-17-2024 End: 04-23-2024 topiramate 50 mg oral tablet (15 sources) Start: 10-12-2022 End: 07-17-2024 take 1 tablet by mouth at bedtime Topiramate 50 mg tablet Discontinued 50 mg PO .hs April 29, 2023 12:00am April 17, 2024 1:08pm Start: 10-12-2021 End: 10-07-2022 topiramate 50 mg oral tablet Dose : 50 mg = 1 tab(s), Oral, qHS, # 30 tab(s), 11 Refill(s), Pharmacy: [facility] [facility] 157, cm, 10/12/21 13:08:00 EDT, Height, kg, 10/12/21 13:08:00 EDT, Dosing Weight Start Date: 10/12/21 Stop Date: 10/07/22 Status: Ordered Start: 09-21-2020 End: 09-16-2021 topiramate 50 mg oral tablet Dose : 50 mg = 1 tab(s), Oral, qHS, # 30 tab(s), 11 Refill(s), Pharmacy: [facility] [address] 155, cm, 09/21/20 11:48:00 EDT, Height, kg, 09/21/20 11:48:00 EDT, Dosing Weight Start Date: 09/21/20 Stop Date: 09/16/21 Status: Ordered End: 05-04-2024 TOPIRAMATE (TOPAMAX ORAL) Ta ke 100 mg by mouth twice daily. 11/29 pt unsure of dose Takes 2 x daily 05/04/2024 Discontinued (Course of therapy completed) Problems Active Problems Problem Classification Problem Date Documented Date Episodic/Chronic Abdominal pain (20 sources) Abdominal pain; Translations: [Left flank pain] Onset: 3 07-24-2014 Episodic Acute bronchitis (3 sources) Acute bronchitis; Translations: [Acute bronchitis, unspecified] 05-03-2018 Episodic Adjustment disorders (20 sources) Adjustment disorder; Translations: [Adjustment disorder, unspecified] 07-03-2021 Chronic Administrative/social admission (1 source) Exercise counseling; Translations: [Exercise counseling] Onset: 5 Episodic Anxiety disorders (20 sources) Generalized anxiety disorder; Translations: [Mixed anxiety and depressive disorder] Onset: 4 02-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 Anxiety disorders (19 sources) Feeling irritable 02-02-2019 Episodic Asthma (20 sources) Asthma; Translations: [Unspecified asthma, uncomplicated] Onset: 4 01-10-2023 Chronic Yuan (3 sources) Full thickness burn of scalp; Translations: [Corrosion of third degree of scalp [any part], initial encounter] 04-25-2020 Episodic Cancer of brain and nervous system (20 sources) Intraocular optic nerve glioma; 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] Onset: 7 11-29-2016 Chronic Conditions associated with dizziness or vertigo (4 sources) Dizziness; Translations: [Dizziness and giddiness] Onset: 4 04-20-2024 Episodic Deficiency and other anemia (8 sources) Anemia; Translations: [Anemia, unspecified] 10-17-2023 Episodic Deficiency and other anemia (2 sources) Anemia, unspecified; Translations: [Anemia, unspecified] Onset: 5 Episodic Developmental disorders (20 sources) Developmental academic disorder; Translations: [Developmental disorder of scholastic skills, unspecified] 07-03-2021 Chronic Disorders of teeth and jaw (3 sources) Toothache; Translations: [Other specified disorders of teeth and supporting structures] 03-23-2018 Episodic Early or threatened labor (13 sources) labor without delivery; Translations: [ labor without delivery, second trimester] Onset: 4 04-20-2024 Episodic Epilepsy; convulsions (20 sources) Tonic-clonic seizure; Translations: [Epilepsy] Onset: 4 02-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 Epilepsy; convulsions (19 sources) Seizure disorder 02-02-2019 Episodic Essential hypertension (20 sources) Hypertensive disorder; Translations: [Essential hypertension] Onset: 5 11-24-2019 Chronic Fracture of upper limb (3 sources) Fracture of phalanx of finger; Translations: [Fracture of unspecified phalanx of unspecified finger, initial encounter for closed fracture] 04-26-2020 Episodic Genitourinary symptoms and ill-defined conditions (20 sources) Dysuria; Translations: [Blood in urine] Onset: 5 08-19-2014 Episodic Headache; including migraine (20 sources) Chronic migraine without aura; Translations: [Migraine] Onset: 6 02-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 Headache; including migraine (3 sources) Headache; Translations: [Headache] 03-23-2018 Episodic Hypertension complicating ; childbirth and the puerperium (20 sources) Hypertension complicating ; Translations: [Unspecified maternal hypertension, third trimester] Onset: 4 Resolved: 5 04-21-2024 Chronic Immunizations and screening for infectious disease (2 sources) Needs influenza immunization; Translations: [Encounter for immunization] 05-12-2024 Episodic Intracranial injury (3 sources) Concussion with less than 1 hour loss of consciousness; Translations: [Concussion with loss of consciousness of 30 minutes or less, initial encounter] 03-23-2019 Episodic Miscellaneous mental health disorders (8 sources) depression; Translations: [ depression] Onset: 4 06-17-2024 Episodic Mood disorders (19 sources) Moderate major depression 02-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 Mycoses (1 source) Candidiasis; Translations: [Other sites of candidiasis] 06-18-2024 Episodic Nausea and vomiting (12 sources) Nausea 01-31-2023 Episodic Neoplasms of unspecified nature or uncertain behavior (20 sources) Neoplasm of brain; 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] Onset: 8 01-16-2024 Chronic Nervous system congenital anomalies (20 sources) Chiari malformation; 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] Onset: 6 04-25-2020 Chronic Other acquired deformities (19 sources) Scoliosis deformity of spine 08-10-2014 Chronic Other acquired deformities (20 sources) Acquired deformity of elbow; Translations: [Unspecified acquired deformity of unspecified upper arm] 07-03-2021 Episodic Other bone disease and musculoskeletal deformities (20 sources) Idiopathic kyphoscoliosis; Translations: [Other idiopathic scoliosis, site unspecified] Onset: 5 01-16-2024 Chronic Other circulatory disease (3 sources) Elevated blood pressure 04-30-2024 Episodic Other complications of ; puerperium affecting management of mother (2 sources) Suspected disorder; Translations: [Maternal care for (suspected) abnormality and damage, unspecified, not applicable or unspecified] 05-12-2024 Episodic Other complications of ; puerperium affecting management of mother (1 source) finding; Translations: [Maternal care for other (suspected) abnormality and damage, cardiac anomalies, fetus 1] 05-25-2024 Episodic Other complications of ; puerperium affecting management of mother (1 source) Complication of labor and delivery, unspecified; Translations: [Labor and delivery indication for care or intervention] Onset: 4 Episodic Other complications of ; puerperium affecting management of mother (2 sources) Maternal care for (suspected) abnormality and damage, unspecified, not applicable or unspecified; Translations: [ abnormality affecting management of mother, single or unspecified fetus] Onset: 4 Episodic Other complications of (1 source) Maternal obesity complicating , childbirth and the puerperium, antepartum; Translations: [Obesity complicating , second trimester] 05-12-2024 Chronic Other complications of (20 sources) High risk ; Translations: [Supervision of other high risk pregnancies, second trimester] Onset: 4 Resolved: 5 04-29-2024 Episodic Other complications of (1 source) Reduced movement; Translations: [Decreased movements, unspecified trimester, not applicable or unspecified] 05-15-2024 Episodic Other congenital anomalies (3 sources) Congenital absence of ulna; 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 Other connective tissue disease (2 sources) Pain in left arm 09-04-2024 Episodic Other ear and sense organ disorders (6 sources) Otitis externa; Translations: [Unspecified otitis externa, unspecified ear] 03-07-2019 Chronic Other endocrine disorders (19 sources) Hypoglycemia 02-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 Other hereditary and degenerative nervous system conditions (1 source) Restless legs; Translations: [Restless legs syndrome] Chronic Other lower respiratory disease (20 sources) Cough; Translations: [Cough] 06-14-2021 Episodic Other lower respiratory disease (1 source) Acute pulmonary edema; Translations: [Acute pulmonary edema (HCC)] Onset: Episodic Other nervous system disorders (12 sources) Neuropathy 07-04-2022 Chronic Other nervous system disorders (3 sources) H/O: epilepsy; Translations: [Personal history of other diseases of the nervous system and sense organs] 08-25-2019 Episodic Other non-traumatic joint disorders (4 sources) Pain in elbow; Translations: [Pain in left elbow] 04-05-2019 Episodic Other conditions (1 source) candidiasis; Translations: [ candidiasis] 06-18-2024 Episodic Other and delivery including normal (20 sources) ; Translations: [Third trimester ] Onset: 4 Resolved: 5 11-26-2023 Episodic Other screening for suspected conditions (not mental disorders or infectious disease) (5 sources) Patient encounter status; Translations: [Encounter for other specified screening] Onset: 5 05-12-2024 Episodic Other skin disorders (19 sources) Acne 09-07-2019 Episodic Other upper respiratory infections (4 sources) Chronic maxillary sinusitis; Translations: [Chronic sinusitis, unspecified] Onset: 5 04-30-2024 Chronic Other upper respiratory infections (20 sources) Acute maxillary sinusitis; Translations: [Viral upper respiratory tract infection] Onset: 4 06-14-2021 Episodic Residual codes; unclassified (19 sources) H/O: Disorder 06-10-2016 Episodic Residual codes; unclassified (19 sources) Insomnia 02-02-2019 Episodic Residual codes; unclassified (1 source) Gestation period, 26 weeks; Translations: [26 weeks gestation of ] 04-29-2024 Episodic Residual codes; unclassified (3 sources) Gestation period, 29 weeks; Translations: [29 weeks gestation of ] 05-12-2024 Episodic Residual codes; unclassified (1 source) FH: Cardiovascular disease; Translations: [Family history of ischemic heart disease and other diseases of the circulatory system] 05-18-2024 Episodic Residual codes; unclassified (1 source) Family history of autism; Translations: [Family history of other mental and behavioral disorders] 05-25-2024 Episodic Residual codes; unclassified (5 sources) Gestation period, 31 weeks; Translations: [31 weeks gestation of ] Onset: 4 05-26-2024 Episodic Residual codes; unclassified (1 source) Gestation period, 28 weeks; Translations: [28 weeks gestation of ] 05-15-2024 Episodic Screening and history of mental health and substance abuse codes (20 sources) H/O: anxiety state; Translations: [Personal history of other mental and behavioral disorders] Onset: 4 08-25-2019 Episodic Short gestation; low weight; and growth retardation (18 sources) Premature ; Translations: [ , unspecified weeks of gestation] Onset: 4 Resolved: 4 05-30-2024 Episodic Spontaneous (1 source) Complete inevitable miscarriage without complication; Translations: [Complete or unspecified spontaneous without complication] Onset: 4 Episodic Superficial injury; contusion (12 sources) Contusion of upper limb 01-10-2023 Episodic Unclassified (1 source) Unknown / UNK(Unknown) Onset: 8 Unclassified (19 sources) Streptococcus agalactiae (organism) 09-26-2014 Unclassified (19 sources) Neurofibromatosis (morphologic abnormality) 02-02-2019 Unclassified (20 sources) Patient encounter status 02-17-2020 Unclassified (12 sources) Otalgia of left ear 01-31-2023 Unclassified (11 sources) [place] [employer] Onset: 4 06-05-2024 Unclassified (2 sources) Anomaly of heart of fetus affecting , antepartum, single or unspecified fetus; Translations: [Anomaly of heart of fetus affecting , antepartum, single or unspecified fetus] Onset: 4 Unclassified (1 source) Maternal care for other (suspected) abnormality and damage, cardiac anomalies, fetus 1; Translations: [Maternal care for other (suspected) abnormality and damage, cardiac anomalies, fetus 1] Onset: 4 Urinary tract infections (16 sources) Urinary tract infectious disease; Translations: [Urinary tract infection, site not specified] 03-23-2018 Episodic Viral infection (3 sources) Viral disease; Translations: [Other viral agents as the cause of diseases classified elsewhere] Onset: 2 Episodic Past or Other Problems Problem Classification Problem Date Documented Date Episodic/Chronic Diseases of white blood cells (16 sources) Leukocytosis; Translations: [Elevated white blood cell count, unspecified] Onset: 05-30-2024 Resolved: 06-03-2024 05-30-2024 Chronic Hypertension complicating ; childbirth and the puerperium (4 sources) Pre-eclampsia; Translations: [Unspecified pre-eclampsia, third trimester] Onset: 05-12-2024 06-17-2024 Episodic Comment on above: severe, 25 weeks Joint disorders and dislocations; trauma-related (20 sources) Dislocation of elbow joint; Translations: [Unspecified dislocation of unspecified ulnohumeral joint, initial encounter] Onset: 02-21-2010 02-21-2010 Episodic Nonspecific chest pain (14 sources) Chest pain; Translations: [Chest pain, unspecified] Onset: 06-02-2024 Resolved: 06-02-2024 06-02-2024 Episodic Other acquired deformities (1 source) Unspecified acquired deformity of left upper arm; Translations: [Acquired deformity of left elbow] Onset: 07-03-2021 Episodic Other complications of ; puerperium affecting management of mother (20 sources) condition affecting obstetrical care of mother; Translations: [Maternal care for (suspected) abnormality and damage, unspecified, not applicable or unspecified] Onset: 05-18-2024 Resolved: 07-15-2024 05-18-2024 Episodic Other complications of ; puerperium affecting management of mother (20 sources) Abnormality of heart; Translations: [Anomaly of heart of fetus affecting , antepartum, single or unspecified fetus] Onset: 05-26-2024 Resolved: 06-03-2024 05-20-2024 Episodic Other complications of ; puerperium affecting management of mother (14 sources) Delivery finding; Translations: [Complication of labor and delivery, unspecified] Onset: 06-02-2024 Resolved: 07-15-2024 06-02-2024 Episodic Other complications of (20 sources) ultrasound scan abnormal; Translations: [Abnormal ultrasonic finding on screening of mother] Onset: 05-12-2024 Resolved: 07-15-2024 05-12-2024 Episodic Other complications of (20 sources) Rubella non-immune; Translations: [Supervision of other high risk pregnancies, unspecified trimester] Onset: 05-26-2024 Resolved: 07-15-2024 05-26-2024 Episodic Other complications of (1 source) Abnormal ultrasonic finding on screening of mother; Translations: [Abnormal ultrasound] Onset: 05-26-2024 Episodic Other complications of (1 source) Supervision of other high risk pregnancies, second trimester; Translations: [Supervision of other high risk pregnancies, second trimester] Onset: 04-29-2024 Episodic Other complications of (1 source) Decreased movements, third trimester, not applicable or unspecified; Translations: [Decreased movements, third trimester, not applicable or unspecified] Onset: 06-05-2024 Episodic Other lower respiratory disease (14 sources) Pulmonary edema; Translations: [Chronic pulmonary edema] Onset: 06-02-2024 Resolved: 06-03-2024 06-02-2024 Chronic Other lower respiratory disease (14 sources) Hypoxia; Translations: [Hypoxemia] Onset: 06-02-2024 Resolved: 06-03-2024 06-02-2024 Episodic Residual codes; unclassified (20 sources) Personal history of other specified conditions; Translations: [Personal history of other specified diseases] Onset: 04-24-2024 04-24-2024 Episodic Residual codes; unclassified (20 sources) H/O: miscarriage; Translations: [Personal history of other complications of , childbirth and the puerperium] Onset: 04-29-2024 04-29-2024 Episodic Residual codes; unclassified (20 sources) Poor historian; Translations: [Other specified health status] Onset: 04-29-2024 04-29-2024 Episodic Residual codes; unclassified (1 source) 31 weeks gestation of ; Translations: [31 weeks gestation of ] Onset: 05-29-2024 Episodic Residual codes; unclassified (1 source) Family history of other mental and behavioral disorders; Translations: [Family history of autism] Onset: 05-26-2024 Episodic Residual codes; unclassified (1 source) 25 weeks gestation of ; Translations: [25 weeks gestation of ] Onset: 05-12-2024 Episodic Unclassified (1 source) Unspecified convulsions Onset: 01-10-2018 Unclassified (20 sources) Dislocation of elbow joint; Translations: [Dislocation of elbow] Onset: 10-11-2003 Resolved: 02-21-2010 02-21-2010 Results Test Name Value Interpretation Reference Range Facil ity Sinus/Facial Boneon 02-12-20 Sinus/Facial Bone [facility] Imaging Services [address] [place], [place] [address] Sinus/Facial Bone MR#: [id number] Acct: [id number] Name: PABLO ALARCON Rep #: [id number] : 1995 F 29 From: Syed Monson PCP: Dr. Tomás Dickey MD Status: [facility] CLI Study: Sinus/Facial Bone Date of Exam: 02/11/25 Exam# [id number] Ordering Dr: Huber Kumar MD PROCEDURE: SINUS/FACIAL BONE 02/11/2025 REASON FOR EXAM: CHRONIC SINUSITIS TECHNIQUE: SINUS/FACIAL BONE Coronal and Sagittal reconstruction series were provided. One or more dose reduction techniques were used (e.g., Automated exposure control, adjustment of the mA and/or kV according to patient size, use of iterative reconstruction technique). RADIATION DOSE SUMMARY: CTDlvol: 28.14 mGy DLP: 714.53 mGycm COMPARISON: None provided. CT/Sinus/Facial Bone IMPRESSION: Periodontal disease is seen,, also with concern for loose tooth and/or periapical abscess in the right mandible. Complete opacification of the right maxillary sinus is seen, with destruction of the medial maxillary wall, and extending into the nose and right ethmoid air cells. 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 Complete opacification of the right frontal sinuses also seen, perhaps due to extension of the same process. Left ethmoid air cells, sphenoid sinuses, and left maxillary sinus appear essentially clear. Mastoid air cells appear clear. The left ostium appears patent. No involvement of the orbits is seen at this time. Reading Location: [place] [address] CC: Dr. Isaiah Kumar MD; Dr. 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: Signed Normal [facility] 12-07-2024 Amphetamine (u) Negative Normal Negative [facility] Comment on above: Performed By: #### A DIFF, TSH, CMP, VIDH, FT4, CBC, FE, GFR, ANEU, FERR, ESR, URIC #### [place] [address] Barbiturate (u) Negative Normal Negative [facility] Comment on above: Performed By: #### A DIFF, TSH, CMP, VIDH, FT4, CBC, FE, GFR, ANEU, FERR, ESR, URIC #### [place] [address] Benzodiazepine (u) Negative Normal Negative [facility] Comment on above: Performed By: #### A DIFF, TSH, CMP, VIDH, FT4, CBC, FE, GFR, ANEU, FERR, ESR, URIC #### [place] [address] Cannabinoid (u) Negative Normal Negative [facility] Comment on above: Performed By: #### A DIFF, TSH, CMP, VIDH, FT4, CBC, FE, GFR, ANEU, FERR, ESR, URIC #### [place] [address] Cocaine Ql (U) Negative Normal Negative [facility] Comment on above: Performed By: #### A DIFF, TSH, CMP, VIDH, FT4, CBC, FE, GFR, ANEU, FERR, ESR, URIC #### [place] [address] Methadone Ql (U) Negative Normal Negative [facility] Comment on above: Performed By: #### A DIFF, TSH, CMP, VIDH, FT4, CBC, FE, GFR, ANEU, FERR, ESR, URIC #### [place] [address] Opiate (u) Negative Normal Negative [facility] Comment on above: Performed By: #### A DIFF, TSH, CMP, VIDH, FT4, CBC, FE, GFR, ANEU, FERR, ESR, URIC #### [place] [address] PCP (u) Negative Normal Negative [facility] Comment on above: Performed By: #### A DIFF, TSH, CMP, VIDH, FT4, CBC, FE, GFR, ANEU, FERR, ESR, URIC #### [place] [address] Urine Drugs screened: See Below Normal [facility] Comment on above: Result Comment: This drug screen is a presumptive screening only. No confirmation will be performed unless requested. Drugs screened include: Threshold Amphetamines/Methamphetamines 1,000 ng/mL Barbiturates 200 ng/mL Benzodiazepine metabolites 200 ng/mL Cannabinoids (THC metabolites) 50 ng/mL Cocaine 300 ng/mL Opiates 300 ng/mL Methadone 300 ng/mL Phencyclidine (PCP) 25 ng/mL Testing has been performed FOR MEDICAL PURPOSES ONLY. Performed By: #### A DIFF, TSH, CMP, VIDH, FT4, CBC, FE, GFR, ANEU, FERR, ESR, URIC #### [place] [address] .Auto Diffon 12-04-2024 Basophil, Absolute 0.1 10 3/mcL Normal 0.0-0.3 [facility] Comment on above: Performed By: #### A DIFF, TSH, CMP, VIDH, FT4, CBC, FE, GFR, ANEU, FERR, ESR, URIC #### [address] [address] Basophils/100 WBC (Bld) 0.7 % Normal 0.0-2.5 [facility] Comment on above: Performed By: #### A DIFF, TSH, CMP, VIDH, FT4, CBC, FE, GFR, ANEU, FERR, ESR, URIC #### [address] [address] Eosinophil, Absolute 0.1 10 3/mcL Normal 0.0-0.7 [facility] Comment on above: Performed By: #### A DIFF, TSH, CMP, VIDH, FT4, CBC, FE, GFR, ANEU, FERR, ESR, URIC #### [address] [address] Eosinophils/100 WBC (Bld) 1.1 % Normal 0.0-6.0 [facility] Comment on above: Performed By: #### A DIFF, TSH, CMP, VIDH, FT4, CBC, FE, GFR, ANEU, FERR, ESR, URIC #### [address] [address] Lymphocyte, Absolute 2.2 10 3/mcL Normal 0.9-4.3 [facility] Comment on above: Performed By: #### A DIFF, TSH, CMP, VIDH, FT4, CBC, FE, GFR, ANEU, FERR, ESR, URIC #### [address] [address] Lymphocytes/100 WBC (Bld) 17.7 % Low 20.0-40.0 [facility] Comment on above: Performed By: #### A DIFF, TSH, CMP, VIDH, FT4, CBC, FE, GFR, ANEU, FERR, ESR, URIC #### [address] [address] Monocyte, Absolute 1.1 10 3/mcL Normal 0.1-1.4 [facility] Comment on above: Performed By: #### A DIFF, TSH, CMP, VIDH, FT4, CBC, FE, GFR, ANEU, FERR, ESR, URIC #### [address] [address] Monocytes/100 WBC (Bld) 8.9 % Normal 2.0-13.[address] [facility] Comment on above: Performed By: #### A DIFF, TSH, CMP, VIDH, FT4, CBC, FE, GFR, ANEU, FERR, ESR, URIC #### [address] [address] Neutrophils/100 WBC (Bld) 71.6 % Normal 50.0-75.0 [facility] Comment on above: Performed By: #### A DIFF, TSH, CMP, VIDH, FT4, CBC, FE, GFR, ANEU, FERR, ESR, URIC #### [address] [address] .GFRon 12-04-2024 GFR/1.73 sq M.predicted among non-blacks MDRD (S/P/Bld) [Vol rate/Area] mL/min/{1.73_m2} Normal [facility] Comment on above: Result Comment: Stages of Chronic Kidney Disease (CKD) Stage Description eGFR(ml/min/1.73 sq.m.) CKD 1 Normal kidney function or >=90 normal kindney function with possible kidney damage (ex. Proteinuria) CKD 2 Kidney damage with mild loss 60-89 of kidney function CKD 3a Mild to moderate loss of kidney 45-59 function CKD 3b Moderate to severe loss of 30-44 of kindey function CKD 4 Severe loss of kidney function 15-29 CKD 5 Kidney failure <15 Note: (go live 2024) the eGFR calculation was updated to the 2020 CKD-EPI creatinine equation without a race factor to calculate the eGFR results. Performed By: #### M G #### [address] [address] .NEUABSon 12-04-2024 Neutrophil, Absolute 8.8 10 3/mcL High 2.3-8.1 [facility] Comment on above: Performed By: #### A DIFF, TSH, CMP, VIDH, FT4, CBC, FE, GFR, ANEU, FERR, ESR, URIC #### [address] [address] CBCon 12-04-2024 Erythrocyte distribution width (RBC) [Ratio] 16.8 % High 11.5-15.5 [facility] Comment on above: Performed By: #### A DIFF, TSH, CMP, VIDH, FT4, CBC, FE, GFR, ANEU, FERR, ESR, URIC #### [place] [id number] Hematocrit (Bld) [Volume fraction] 38.9 % Normal 34.0-46.0 [facility] Comment on above: Performed By: #### A DIFF, TSH, CMP, VIDH, FT4, CBC, FE, GFR, ANEU, FERR, ESR, URIC #### [place] [address] Hgb 12.6 G/dL Normal 12.0-16.0 [facility] Comment on above: Performed By: #### A DIFF, TSH, CMP, VIDH, FT4, CBC, FE, GFR, ANEU, FERR, ESR, URIC #### [place] [id number] MCH (RBC) [Entitic mass] 24.7 pg Low 27.0-33.0 [facility] Comment on above: Performed By: #### A DIFF, TSH, CMP, VIDH, FT4, CBC, FE, GFR, ANEU, FERR, ESR, URIC #### [place] [id number] MCHC 32.2 G/dL Normal 32.0-36.0 [facility] Comment on above: Performed By: #### A DIFF, TSH, CMP, VIDH, FT4, CBC, FE, GFR, ANEU, FERR, ESR, URIC #### [place] [id number] MCV (RBC) [Entitic vol] 76.7 fL Low 80.0-99.0 [facility] Comment on above: Performed By: #### A DIFF, TSH, CMP, VIDH, FT4, CBC, FE, GFR, ANEU, FERR, ESR, URIC #### [address] [address] Platelet 250 10 3/mcL Normal 150-450 [facility] Comment on above: Performed By: #### A DIFF, TSH, CMP, VIDH, FT4, CBC, FE, GFR, ANEU, FERR, ESR, URIC #### [place] [id number] [place], [place] [address] Platelet mean volume (Bld) [Entitic vol] 8.7 fL Normal 6.6-10.5 [facility] Comment on above: Performed By: #### A DIFF, TSH, CMP, VIDH, FT4, CBC, FE, GFR, ANEU, FERR, ESR, URIC #### [address] [address] RBC 5.08 10 6/mcL Normal 4.10-5.30 [facility] Comment on above: Performed By: #### A DIFF, TSH, CMP, VIDH, FT4, CBC, FE, GFR, ANEU, FERR, ESR, URIC #### [address] [address] WBC 12.3 10 3/mcL High 4.5-10.8 [facility] Comment on above: Performed By: #### A DIFF, TSH, CMP, VIDH, FT4, CBC, FE, GFR, ANEU, FERR, ESR, URIC #### [address] [address] CMPon 12-04-2024 Albumin Level 3.8 G/dL Normal 3.5-5.0 [facility] Comment on above: Performed By: #### M G #### [address] [address] Albumin/Globulin [Mass ratio] 1.0 {ratio} Low 1.1-2.5 [facility] Comment on above: Performed By: #### M G #### [address] [address] ALP [Catalytic activity/Vol] 87 U/L Normal 40-135 [facility] Comment on above: Performed By: #### M G #### [address] [address] ALT [Catalytic activity/Vol] 18 U/L Normal 14-59 [facility] Comment on above: Performed By: #### M G #### [address] [address] AST [Catalytic activity/Vol] 18 U/L Normal 10-40 [facility] Comment on above: Performed By: #### M G #### [address] [address] Bili Total 0.4 mg/dL Normal 0.2-1.0 [facility] Comment on above: Result Comment: Use of this assay is not recommended for patients undergoing treatment with eltrombopag due to the potential for falsely elevated results. Performed By: #### M G #### [address] [address] BUN/Creatinine Ratio 14 ratio Normal 7-27 [facility] Comment on above: Performed By: #### M G #### [address] [address] Calcium [Mass/Vol] 8.8 mg/dL Normal 8.4-10.2 [facility] Comment on above: Performed By: #### M G #### [address] [address] Chloride [Moles/Vol] 105 mmol/L Normal 98-107 [facility] Comment on above: Performed By: #### M G #### [address] [address] CO2 [Moles/Vol] 25 mmol/L Normal 22-29 [facility] Comment on above: Performed By: #### M G #### [address] [address] Creatinine [Mass/Vol] 0.66 mg/dL Normal 0.51-0.95 [facility] Comment on above: Performed By: #### M G #### [address] [address] Electrolyte Balance 9.0 mEq/L Normal 4.0-15.0 [facility] Comment on above: Performed By: #### M G #### [address] [address] Globulin 3.8 G/dL Normal 2.7-4.4 [facility] Comment on above: Performed By: #### M G #### [address] [address] Glucose [Mass/Vol] 95 mg/dL Normal 70-105 [facility] Comment on above: Performed By: #### M G #### [address] [address] Potassium [Moles/Vol] 3.7 mmol/L Normal 3.5-5.1 [facility] Comment on above: Performed By: #### M G #### [address] [address] Sodium [Moles/Vol] 139 mmol/L Normal 136-145 [facility] Comment on above: Performed By: #### M G #### [address] [address] Total Protein 7.6 G/dL Normal 6.4-8.2 [facility] Comment on above: Performed By: #### M G #### [address] [address] Urea nitrogen [Mass/Vol] 9 mg/dL Normal 7-18 [facility] Comment on above: Performed By: #### M G #### [address] [address] ESRon 12-04-2024 Erythrocyte Sed Rate 28 mm/hr High 0-20 [facility] Comment on above: Performed By: #### A DIFF, TSH, CMP, VIDH, FT4, CBC, FE, GFR, ANEU, FERR, ESR, URIC #### [address] [address] FEon 12-04-2024 Iron [Mass/Vol] 60 ug/dL Normal 50-170 [facility] Comment on above: Performed By: #### M G #### [address] [address] Jama 12-04-2024 Ferritin [Mass/Vol] 7.0 ng/mL Low 8.0-252.0 [facility] Comment on above: Performed By: #### A DIFF, TSH, CMP, VIDH, FT4, CBC, FE, GFR, ANEU, FERR, ESR, URIC #### [address] [address] FT4on 12-04-2024 Free T4 [Mass/Vol] 1.10 ng/dL Normal 0.76-1.46 [facility] Comment on above: Performed By: #### A DIFF, TSH, CMP, VIDH, FT4, CBC, FE, GFR, ANEU, FERR, ESR, URIC #### [address] [address] LABORATORYOrdered By: SYSTEM SYSTEM on 12-04-2024 25-hydroxyvitamin D3 [Mass/Vol] 25.2 ng/mL Invalid Interpretation Code AO ADM SS Comment on above: Interpretive Data: I nterpretive Values Based on Total 25(OH) Vitamin D: Deficient <20 ng/mL Insufficient 20 - <30 ng/mL Sufficient 30-100 ng/mL Albumin BCP dye [Mass/Vol] 3.8 G/dL Normal 3.5 - 5.0 G/dL AO ADM SS Albumin/Globulin [Mass ratio] 1.0 {ratio} Low 1.1 - 2.5 ratio AO ADM SS ALP [Catalytic activity/Vol] 87 U/L Normal 40 - 135 U/L AO ADM SS ALT With P-5'-P [Catalytic activity/Vol] 18 U/L Normal 14 - 59 U/L AO ADM SS AST With P-5'-P [Catalytic activity/Vol] 18 U/L Normal 10 - 40 U/L AO ADM SS Basophils (Bld) [#/Vol] 0.1 103/mcL Normal 0.0 - 0.3 10^3/mcL AO Workflow SS Basophils/100 WBC (Bld) 0.7 % Normal 0.0 - 2.5 % AO Workflow SS Bilirubin [Mass/Vol] 0.4 mg/dL Normal 0.2 - 1.0 mg/dL AO ADM SS Comment on above: Interpretive Data: U se of this assay is not recommended for patients undergoing treatment with eltrombopag due to the potential for falsely elevated results. Calcium [Mass/Vol] 8.8 mg/dL Normal 8.4 - 10. 2 mg/dL AO ADM SS Chloride [Moles/Vol] 105 mmol/L Normal 98 - 107 mmol/L AO ADM SS CO2 [Moles/Vol] 25 mmol/L Normal 22 - 29 mmol/L AO AD M SS Creatinine [Mass/Vol] 0.66 mg/dL Normal 0.51 - 0.95 mg/dL AO ADM SS Electrolyte Balance 9.0 mEq/L Normal 4.0 - 15 .0 mEq/L AO ADM SS Eosinophil, Absolute 0.1 103/mcL Normal 0.0 - 0 .7 10^3/mcL AO Workflow SS Eosinophils/100 WBC (Bld) 1.1 % Normal 0.0 - 6.0 % AO Workflow SS Erythrocyte distribution width (RBC) [Ratio] 16.8 % High 11.5 - 15.5 % AO Workflow SS Estimated Glomerular Filtration Rate ml/min/1.73sqm Invalid Interpretation Code AO Chemistry S Comment on above: Interpretive Data: Stages of Chronic Kidney Disease (CKD) Stage Description eGFR(ml/min/1.73 sq.m.) CKD 1 Normal kidney function or >=90 normal kindney function with possible kidney damage (ex. Proteinuria) CKD 2 Kidney damage with mild loss 60-89 of kidney function CKD 3a Mild to moderate loss of kidney 45-59 function CKD 3b Moderate to severe loss of 30-44 of kindey function CKD 4 Severe loss of kidney function 15-29 CKD 5 Kidney failure <15 Note: (go live 2024) the eGFR calculation was updated to the 2020 CKD-EPI creatinine equation without a race factor to calculate the eGFR results. Ferritin [Mass/Vol] 7.0 ng/mL Low 8.0 - 25 2.0 ng/mL AO ADM SS Free T4 [Mass/Vol] 1.10 ng/dL Normal 0.76 - 1. 46 ng/dL AO ADM SS Globulin 3.8 G/dL Normal 2.7 - 4.4 G/dL AO ADM SS Glucose [Mass/Vol] 95 mg/dL Normal 70 - 105 mg/dL AO ADM SS Hematocrit (Bld) [Volume fraction] 38.9 % Normal 34.0 - 46.0 % AO Workflow SS Hemoglobin (Bld) [Mass/Vol] 12.6 G/dL Normal 12.0 - 16.0 G/dL AO Workflow SS Iron [Mass/Vol] 60 ug/dL Normal 50 - 170 mcg/dL AO A DM SS Lymphocytes (Bld) [#/Vol] 2.2 103/mcL Normal 0.9 - 4.3 10^3/mcL AO Workflow SS Lymphocytes/100 WBC (Bld) 17.7 % Low 20.0 - 40.0 % AO Workflow SS MCH (RBC) [Entitic mass] 24.7 pg Low 27.0 - 33.0 pg AO Workflow SS MCHC 32.2 G/dL Normal 32.0 - 36.0 G/dL AO Workflow SS MCV (RBC) [Entitic vol] 76.7 fL Low 80.0 - 99.0 fL AO Workflow SS Monocytes (Bld) [#/Vol] 1.1 103/mcL Normal 0.1 - 1.4 10^3/mcL AO Workflow SS Monocytes/100 WBC (Bld) 8.9 % Normal 2.0 - 13.0 % AO Workflow SS Neutrophils (Bld) [#/Vol] 8.8 103/mcL High 2.3 - 8.1 10^3/mcL AO Workflow SS Neutrophils/100 WBC (Bld) 71.6 % Normal 50.0 - 75.0 % AO Workflow SS Platelet mean volume (Bld) [Entitic vol] 8.7 fL Normal 6.6 - 10.5 fL AO Workflow SS Platelets (Bld) [#/Vol] 250 103/mcL Normal 150 - 450 10^3/mcL AO Workflow SS Potassium [Moles/Vol] 3.7 mmol/L Normal 3.5 - 5.1 mmol/L AO ADM SS Protein [Mass/Vol] 7.6 G/dL Normal 6.4 - 8.2 G/dL AO ADM SS RBC (Bld) [#/Vol] 5.08 106/mcL Normal 4.10 - 5.3 0 10^6/mcL AO Workflow SS Sodium [Moles/Vol] 139 mmol/L Normal 136 - 145 mmol/L AO ADM SS TSH Qn 0.56 m[IU]/L Normal 0.36 - 3.74 mcIU/mL AO ADM SS Urea nitrogen [Mass/Vol] 9 mg/dL Normal 7 - 18 mg/dL AO ADM SS Urea nitrogen/Creatinine [Mass ratio] 14 ratio Normal 7 - 27 ratio AO ADM SS Uric Acid Lvl 4.9 mg/dL Normal 2.6 - 6.2 mg/dL AO ADM SS WBC (Bld) [#/Vol] 12.3 103/mcL High 4.5 - 10.8 10^3/mcL AO Workflow SS LABORATORYOrdered By: Fish Monroe on 12-04-2024 ESR Photometric method (Bld) [Velocity] 28 mm/hr High 0 - 20 mm/hr AO Man Heme SS LABORATORYOrdered By: Juani Castano on 12-04-2024 Amphetamines Screen Ql (U) Negative *NA* (12/04/24 4:17 PM) Invalid Interpretation Code Negative AO ADM SS Barbiturates Screen Ql (U) Negative *NA* (12/04/24 4:17 PM) Invalid Interpretation Code Negative AO ADM SS Benzodiazepines Ql (U) Negative *NA* (12/04/24 4:17 PM) Invalid Interpretation Code Negative AO ADM SS Benzoylecgonine Screen Ql (U) Negative *NA* (12/04/24 4:17 PM) Invalid Interpretation Code Negative AO ADM SS Cannabinoids Screen Ql (U) Negative *NA* (12/04/24 4:17 PM) Invalid Interpretation Code Negative AO ADM SS Methadone Screen Ql (U) Negative *NA* (12/04/24 4:17 PM) Invalid Interpretation Code Negative AO ADM SS Opiates Screen Ql (U) Negative *NA* (12/04/24 4:17 PM) Invalid Interpretation Code Negative AO ADM SS Phencyclidine Ql (U) Negative *NA* (12/04/24 4:17 PM) Invalid Interpretation Code Negative AO ADM SS Urine Drugs screened: See Below 1 (12/04/24 4:17 PM) Normal AO Chemistry S Comment on above: Interpretive Data: T his drug screen is a presumptive screening only. No confirmation will be performed unless requested. Drugs screened include: Threshold Amphetamines/Methamphetamines 1,000 ng/mL Barbiturates 200 ng/mL Benzodiazepine metabolites 200 ng/mL Cannabinoids (THC metabolites) 50 ng/mL Cocaine 300 ng/mL Opiates 300 ng/mL Methadone 300 ng/mL Phencyclidine (PCP) 25 ng/mL Testing has been performed FOR MEDICAL PURPOSES ONLY. No Panel Informationon 12-04 Culture Urine No growth to date [facility] Work Phone: TSHon 12-04-2024 TSH Qn 0.56 m[IU]/L Normal 0.36-3.74 [facility] Comment on above: Performed By: #### A DIFF, TSH, CMP, VIDH, FT4, CBC, FE, GFR, ANEU, FERR, ESR, URIC #### [place] [id number] URICon 12-04-2024 Uric Acid Lvl 4.9 mg/dL Normal 2.6-6.2 [facility] Comment on above: Performed By: #### A DIFF, TSH, CMP, VIDH, FT4, CBC, FE, GFR, ANEU, FERR, ESR, URIC #### [address] [address] VIDHon 12-04-2024 Vit. D 25-Hydroxy 25.2 ng/mL Normal [facility] Comment on above: Result Comment: Inte rpretive Values Based on Total 25(OH) Vitamin D: Deficient <20 ng/mL Insufficient 20 - <30 ng/mL Sufficient 30-100 ng/mL Performed By: #### M G #### [place] [id number] CNOVon 09-09-2024 CNOV Office Visit (CARDBD) ---- PABLO ALARCON ([id number]) 1995 F T Date Time Provider Department 09/09/24 2:00 PM BRADEN CHRISTOPHER During your visit today, we recorded the following information about you: Pulse Blood pressure Weight Height 84/minute 146/100 73.5 kg 1.562 m Braden Christopher MD 09/09/2024 2:[address] [facility] Department of Cardiology [address] [place] [address] (office) [phone] (fax) 09/09/2024 This note was written using medical terminology and is intended to be used for medical purposes by other health adult care manager Patient presents with: Care HPI: Ms. Alarcon is a 28 year old female with below PMH who is referred for a Heart visit for chronic hypertension with DEBBIE. She was admitted at 31 close for for chronic hypertension was treated with IV labetalol and started on magnesium. She met criteria for preeclampsia and was transferred to [facility]. At 32 weeks she developed chest pain and hypoxia. A chest x-ray showed pulmonary edema she was treated with IV Lasix and induced. She proceed with a due to distress. her blood pressure normalized with nifedipine 60 mg twice daily. She ran out of the medications and has not been taking them. This was her second . She did not have issues with preeclampsia or diabetes in her first . She is not sure if she wants future pregnancies. She currently has a mirena IUD for prophylaxis. She is following with a counselor for mental health. Delivery Date:06/02/2024 Weeks at Delivery:32 + 0 Mode of Delivery:C. Section ?:yes On aspirin for PEC prevention during ?: No Discharged on blood pressure meds?:yes Discharged on diabetes meds?:No Cardiology: The review of symptoms was negative for chest pain, shortness of breath, orthopnea, paroxysmal nocturnal dyspnea, palpitation, edema General ROS: Otherwise 14 systems ROS is negative except as stated above. PAST MEDICAL HISTORY Diagnosis Date Adjustment disorder Brain tumor (HCC) optic glioma Chronic hypertension affecting 04/24/2024 Taking Labetalol 200mg q12h and Nifedipine XL 60mg twice daily (up titrated [facility] admission 04/17-04/23) Secondary HTN work up on admission unremarkable, no evidence superimposed preeclampsia Growth US every 4 wk starting at 32wk Twice weekly testing at 30 weeks IOL 36-37w, would favor later /early term given hospitalization for exacerbation third trimester (delivery recommended [facility]) Chronic hypertension with superimposed pre-eclampsia 05/30/2024 Admitted from OSH with concerns for SIPEw/o exacerbation vs. 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 H/O pyloric stenosis 11/1995 s/p repair Learning disability IEP, reading and spelling MIGRAINE NOS W/O MENTN INTRACTABLE Stock Neurofibromatosis, type 1 (HCC) [place] Optic nerve glioma (HCC) Left eye Periodic limb movement does not inerfere with sleep Scoliosis Seizure (HCC) Visual field constriction of right eye PAST SURGICAL HISTORY Procedure Laterality Date BOTOX INJECTION For migraines every 3 months SECTION HX 06/02/2024 pyloric stenosis 12/1995 UNLISTED PROCEDURE HUMERUS/ELBOW left elbow re-construction x 3 Current Outpatient Medications: levonorgestrel (MIRENA) 21 mcg/24hr (up to 8 yrs) 52 mg IUD, 1 Each by INTRAUTERINE route as directed., Disp: 1 Each, Rfl: 0 escitalopram oxalate (LEXAPRO) 10 mg tablet, Take 1 tablet by mouth once daily., Disp: 30 tablet, Rfl: 3 labetalol (TRANDATE) 200 mg tablet, Take 4 tablets by mouth every 8 hours., Disp: 1080 tablet, Rfl: 0 NIFEdipine ER (PROCARDIA XL) 60 mg 24 hr tablet, Take 1 tablet by mouth two times a day., Disp: 180 tablet, Rfl: 0 folic acid 1 mg tablet, Take 3 tablets by mouth once daily., Disp: 90 tablet, Rfl: 5 vit/iron fum/folic ac (RIGHT STEP VITAMINS ORAL), Take by mouth. Gummy, Disp: , Rfl: levETIRAcetam (KEPPRA) 500 mg tablet, Take 1,000 mg by mouth two times a day., Disp: , Rfl: fluticasone (FLONASE) 50 mcg/actuation nasal spray, Use 1 [place] in each nostril once daily., Disp: , Rfl: ALLERGIES Allergen Reactions Dextroamphetamine Mental Status Change Per patient - hallucinations Gabapentin Rash Seasonal Allergies Cough AVAILABLE LABS, EKGS, CARDIAC TESTING/PROCEDURES, FAMILY HISTORY AND SOCIAL HISTORY WERE REVIEWED AND UPDATED IN Epic. ECG 09/09/ (more content not included)... Normal [facility] ECG COMPLETEon 09-09-2024 Atrial Rate 84 BPM [facility] Calculated P [place] 31 degrees [facility] Calculated R [place] 31 degrees [facility] Calculated T [place] 1 degrees [facility] P-R Interval 130 ms [facility] QRS Duration 82 ms [facility] QT Interval 364 ms [facility] QTC Calculation (Bazett) 430 ms [facility] Ventricular Rate 84 [facility] NORMAL SINUS RHYTHM NORMAL ECG Confirmed by BRADEN CHRISTOPHER MD ([id number]), photo editor MARVA BROWN ([id number]) on 09/09/2024 3:24:15 PM [facility] NAME : PABLO ALARCON PID : [id number] : 1995 Gender : Female Race : ORD : [id number] Procedure Date : Sep 09 2024 13:53:40 Edit Date : Sep 09 2024 15:24:21 Diagnosis: NORMAL SINUS RHYTHM NORMAL ECG Confirmed by BRADEN CHRISTPOHER MD ([id number]), AMRVA Gardner ([id number]) on 09/09/2024 3:24:15 PM Test Reason : Z39.2 care and examination Location : 503 : [facility] Overread By : BRADEN CHRISTOPHER MD Edited By : MARVA BROWN Referred By : TANJA MOSHER Acquired by : HEART AND VASCULAR [facility] ECG COMPLETE Ventricular Rate : 84 BPM Atrial Rate : 84 BPM P-R Interval : 130 ms QRS Duration : 82 ms Q-T Interval : 364 ms QTC Calculation(Bazett) : 430 ms Calculated P [place] : 31 degrees Calculated R [place] : 31 degrees Calculated T [place] : 1 degrees NORMAL SINUS RHYTHM NORMAL ECG Confirmed by BRADEN CHRISTOPHER MD ([id number]), MARVA Gardner ([id number]) on 09/09/2024 3:24:15 PM NAME : PABLO ALARCON PID : [id number] : 1995 Gender : Female Race : ORD : [id number] Procedure Date : Sep 09 2024 13:53:40 Edit Date : Sep 09 2024 15:24:21 Diagnosis: NORMAL SINUS RHYTHM NORMAL ECG Confirmed by BRADEN CHRISTOPHER MD ([id number]), photo editor MARVA BROWN ([id number]) on 09/09/2024 3:24:15 PM Test Reason : Z39.2 care and examination Location : 503 : [facility] Overread By : BRADEN CHRISTOPHER MD Edited By : MARVA BROWN Referred By : TANJA MOSHER Acquired by : Mike collazo [facility] Nasopharyngeal Cultureon [facility] PATIENT NOT PRESENT Amoxicillin/Clavula kemi Acid and Oral Cephalosporins are the drugs of choice, as most isolates are penicillin resistant. Nasopharyngeal Culture Trimeth/Sulfa (Otitis), Ciprofloxacin, Ofloxacin and Erythromycin are alternate choices. Nasopharyngeal Culture Nasopharyngeal Culture Moraxella Catarrhalis Amount Growth 3+ Beta Lactamase-Reportabl e Positive Normal [facility] Comment on above: Performed By: #### M 100.2000, M100.2500 #### [facility] Laboratory [address] [place], [place], [address] Gram Stainon 07-21-2024 PATIENT NOT PRESENT Gram Stain Rare Gram negative diplococci 2+ Gram positive cocci 2+ Gram positive rods 3+ White Blood Cells Normal [facility] Comment on above: Performed By: #### M 100.1999, M100.2500 #### [facility] [address] [place], [place], [address] CNOVon 07-15-2024 CNOV Office Visit (OBGYWM) ---- PABLO ALARCON ([id number]) 1995 F T Date Time Provider Department 07/15/24 2:00 PM JOCELYN BOTELLO During your visit today, we recorded the following information about you: Blood pressure Weight 134/96 72.1 kg Jocelyn Botello MD 07/15/2024 8:33 PM Signed Vegetable Cook offered: Patient declines. VISIT Pablo Alarcon is a 28 year old year old here for visit. Delivery Summary: Primary c/s 06/02/24 for NRFHR Supplementing formula more than breast milk Struggling with anxiety. Has tried Zoloft in the past but did not like it. [place] it made her worse. Does have a counselor she is working with. Wanting to try a vermin exterminator medication. Has most used xanax in the past. No thoughts of harm. ROS/ Recovery: Feeding: Breast and bottle feeding problems: Inadequate milk supply Menses since delivery: none Menstrual pattern prior to : Regular periods [place] since delivery: Resumed Depression: on and off symptoms of depression. OB Depression and Anxiety Screening- This Encounter (since 07/14/2024) Over the past 2 weeks have you felt down, depressed, or hopeless? Positive - Further Testing Indicated Over the past two weeks, have you felt little interest or pleasure in doing things?? Positive - Further Testing Indicated I have been able to laugh and see the funny side of things. Not quite so much now I have looked forward with enjoyment to things. Rather less than I used to I have blamed myself unnecessarily when things went wrong. Yes, most of the time I have been anxious or worried for no good reason. Yes, sometimes I have felt scared or panicky for no good reason. Yes, quite a lot Things have been getting on top of me. Yes, most of the time I haven't been able to cope at all I have been so unhappy that I have had difficulty sleeping. Yes, most of the time I have felt sad or miserable. Yes, quite often I have been so unhappy that I have been crying. Yes, quite often The thought of harming myself has occurred to me. Never [place] Depression Scale Total 20 Feeling nervous, anxious or on edge 1-Several days Not being able to stop or control worrying 1-Several days Anxiety Pre-Screening Total (If >/= 3 additional questions will be reviewed) 2 Emotional support: Yes Bowel symptoms: Negative for abdominal discomfort, blood in stools or black stools and change in bowel habits Abdomen: She reports no incisional redness, tenderness, erythema Bladder symptoms: No dysuria, gross hematuria, urinary frequency, urinary urgency, or incontinence Other issues: None Last Pap: 2022 normal HPV: negative PAST MEDICAL HISTORY Diagnosis Date Adjustment disorder Brain tumor (HCC) optic glioma Developmental delay 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 H/O pyloric stenosis 11/1995 s/p repair Learning disability IEP, reading and spelling MIGRAINE NOS W/O MENTN INTRACTABLE Stock Neurofibromatosis, type 1 (HCC) [place] Optic nerve glioma (HCC) Left eye Periodic limb movement does not inerfere with sleep Scoliosis Seizure (HCC) Visual field constriction of right eye PAST SURGICAL HISTORY Procedure Laterality Date BOTOX INJECTION For migraines every 3 months SECTION HX 06/02/2024 pyloric stenosis 12/1995 UNLISTED PROCEDURE HUMERUS/ELBOW left elbow re-construction x 3 FAMILY HISTORY Problem Relation Age of Onset Asthma Mother Maternal side Cancer Mother Maternal side Diabetes Mother Maternal side other (Neurofibromatosis) Mother Cancer Father Paternal side Diabetes Father Paternal side Ischemic Heart Disease Father [place] Asthma Father Paternal side Hypertension Father Diabetes Maternal Grandmother Heart Maternal Grandmother other (Neurofibromatosis) Maternal Grandmother Heart Paternal Grandmother CHF Ischemic Heart Disease Paternal Grandmother other (Neurofibromatosis) Brother other (Neurofibromatosis) Brother other (Neurofibromatosis) Sister Social History Tobacco Use Smoking status: Former Types: Cigarettes Passive exposure: Yes Smokeless tobacco: Never Tobacco comments: mom and dad smoke outside Vaping Use Vaping status: Former Substance Use Topics Alcohol use: No Drug use: No PHYSICAL EXAMINATION: SENSITIVE EXAM: The sensitive examination was discussed with the Patient or Patient's Authorized Division Head. As applicable, any other physician, advance practice provider, medical student, or other health professional student that will be observing or involved in the sensitive examination for educational or training purposes was discussed with the Patient or Authorized Division Head. The Patient or Authorized Division Head has agreed to proceed with the s (more content not included)... Normal [facility] UA DIP,URINE HCG (POC)on Beta HCG ( test) Ql (U) Negative Negative [facility] Comment on above: Location:[facility], [address], [place], [address] [employer] (POCT) Internal QC [facility] Location:[facility], [address], [place], [address] [facility] POINT OF CARE [facility] Kenneth 06-18-2024 [facility] Telephone (OBGYWM) ---- PABLO ALARCON ([id number]) 1995 F T Date Time Provider Department 06/18/24 LIZZETTE GALAN OBGYWM During your visit today, we recorded the following information about you: Yuliet Kingsley LPN 06/18/2024 10:48 AM Signed Patient called stating that she is and her baby has been dx w/ thrush. Patient was told to call our office to treated. Patient would like a call back. Pharmacy was updated. Lizzette Galan MD 06/18/2024 11:59 AM Signed needs appointment for rxs to be sent. Can be VV or send PharmMD message. MD Konrad Boggs Jennifer, RN 06/18/2024 12:21 PM Signed Scheduled virtual visit with CP as patient was seen by provider yesterday. Jocelyn Silvestre RN Allergies As of Date: 06/18/2024 Noted Allergy Reaction DEXTROAMPHETAMINE 05/15/2024 1 - Mental Status Change Comments: Per patient - hallucinations GABAPENTIN 04/24/2024 2 - Rash SEASONAL ALLERGIES 12/12/2017 3 - Cough Date Reviewed: 06/17/2024 Reviewed by: Dalia Mendoza LPN - Fully Assessed Reason for Visit: Patient Question [9227] Prescriptions as of 06/18/2024 - labetalol (TRANDATE) 200 mg tablet Take 4 tablets by mouth every 8 hours. - NIFEdipine ER (PROCARDIA XL) 60 mg 24 hr tablet Take 1 tablet by mouth two times a day. - folic acid 1 mg tablet Take 3 tablets by mouth once daily. - vit/iron fum/folic ac (RIGHT STEP VITAMINS ORAL) Take by mouth. Gummy - levETIRAcetam (KEPPRA) 500 mg tablet Take 1,000 mg by mouth two times a day. - fluticasone (FLONASE) 50 mcg/actuation nasal spray Use 1 [place] in each nostril once daily. 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 Chronic hypertension affecting [O10.9*04/24/2024 History of seizures [Z87.898] 04/24/2024 History of nicotine vaping [Z87.891] 04/24/2024 Anxiety and depression [F41.9, F32.A] 04/24/2024 History of miscarriage [Z87.59] 04/29/2024 Supervision of other high risk pregnancies, sec*04/29/2024 Arnold-Chiari malformation (HCC) [Q07.00] 04/29/2024 Poor historian [Z78.9] 04/29/2024 Abnormal ultrasound [O28.3] 05/12/2024 abnormality affecting management of mothe*05/18/2024 cardiac anomaly complicating , a*05/26/2024 06/03/2024 Rubella non-immune status, antepartum [O09.899,* Chronic hypertension with superimposed pre-ecla*05/30/2024 Leukocytosis [D72.829] 05/30/2024 06/03/2024 Asthma [J45.909] 05/30/2024 Prematurity [P07.30] 05/30/2024 06/03/2024 Chest pain [R07.9] 06/02/2024 06/02/2024 Hypoxia [R09.02] 06/02/2024 06/03/2024 Pulmonary edema [J81.1] 06/02/2024 06/03/2024 state [Z39.2] 06/03/2024 Labor and delivery indication for care or inter*06/03/2024 Hypertension complicating , delivered,*06/05/20 24 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 Patient called at 11:45 stating that she was still 10-15 min away. She had to arrange for a cart driver through her insurance. Coming from [facility] because her baby is in the NICU. Offered her 2:00 PM with today, but she has a [facility] appointment at that time. Asking if she can be seen around 1:00 PM. No openings with any provider. Patient had Pre E and that's why she was delivered early. Please advise. MOSHE Gonzalez Deidre, MD 06/17/2024 12:08 PM Signed She can see CP this afternoon and if there is an issue she can grab me. Britney Valdivia RN 06/17/2024 12:13 PM Signed Patient called and appointment scheduled. Britney Valdivia RN Allergies As of Date: 06/17/2024 Noted Allergy Reaction DEXTROAMPHETAMINE 05/15/2024 1 - Mental Status Change Comments: Per patient - hallucinations GABAPENTIN 04/24/2024 2 - Rash SEASONAL ALLERGIES 12/12/2017 3 - Cough Date Reviewed: 06/07/2024 Reviewed by: Xochitl Genao RN - Fully Assessed Reason for Visit: Missed Appointment [1304] Prescriptions as of 06/17/2024 - labetalol (TRANDATE) 200 mg tablet Take 4 tablets by mouth every 8 hours. - NIFEdipine ER (PROCARDIA XL) 60 mg 24 hr tablet Take 1 tablet by mouth two times a day. - aspirin, enteric coated (ASPIRIN, ENTERIC COATED) 81 mg EC tablet Take 1 tablet by mouth once daily. - famotidine (PEPCID AC) 20 mg tablet Take 1 tablet by mouth two times a day. - folic acid 1 mg tablet Take 3 tablets by mouth once daily. - sertraline (ZOLOFT) 50 mg tablet Take 50 mg by mouth once daily. Patient taking as needed because it makes her nauseated when she does take it - vit/iron fum/folic ac (RIGHT STEP VITAMINS ORAL) Take by mouth. Gummy - levETIRAcetam (KEPPRA) 500 mg tablet Take 1,000 mg by mouth two times a day. - fluticasone (FLONASE) 50 mcg/actuation nasal spray Use 1 [place] in each nostril once daily. 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 Chronic hypertension affecting [O10.9*04/24/2024 History of seizures [Z87.898] 04/24/2024 History of nicotine vaping [Z87.891] 04/24/2024 Anxiety and depression [F41.9, F32.A] 04/24/2024 History of miscarriage [Z87.59] 04/29/2024 Supervision of other high risk pregnancies, sec*04/29/2024 Arnold-Chiari malformation (HCC) [Q07.00] 04/29/2024 Poor historian [Z78.9] 04/29/2024 Abnormal ultrasound [O28.3] 05/12/2024 abnormality affecting management of mothe*05/18/2024 cardiac anomaly complicating , a*05/26/2024 06/03/2024 Rubella non-immune status, antepartum [O09.899,* Chronic hypertension with superimposed pre-ecla*05/30/2024 Leukocytosis [D72.829] 05/30/2024 06/03/2024 Asthma [J45.909] 05/30/2024 Prematurity [P07.30] 05/30/2024 06/03/2024 Chest pain [R07.9] 06/02/2024 06/02/2024 Hypoxia [R09.02] 06/02/2024 06/03/2024 Pulmonary edema [J81.1] 06/02/2024 06/03/2024 state [Z39.2] 06/03/2024 Labor and delivery indication for care or inter*06/03/2024 Hypertension complicating , delivered,*06/05/20 Encounter Status:Closed by BRITNEY VALDIVIA on 06/17/24 [facility] Kenneth 06-08-2024 CNPN Telephone (OBGYWM) ---- PABLO ALARCON ([id number]) 1995 F T Date Time Provider Department 06/08/24 MICHELE GARLAND OBCHAYO During your visit today, we recorded the following information about you: Negar Youssef RN 06/08/2024 9:50 AM Addendum ----- Message from Michele Garland MD sent at 06/08/2024 8:28 AM EST ----- Thank you! Please make sure patient has a blood pressure check this week in our office [facility] Negar Youssef RN 06/08/2024 9:51 AM Signed Left message for patient to call office. MOSHE Marr Trisha, RN 06/08/2024 10:52 AM Signed Patient was scheduled by [facility] for 06/17. She is to be scheduled this week though for BP check. Left message for patient to call office to speak to a nurse. MOSHE Marr Trisha, RN 06/08/2024 12:26 PM Signed Patient called back and stated that she has to get transportation through insurance and that was the first day they'd be able to bring her for appt. Baby is still in NICU. Patient is checking BP and if needed plans to go to [facility] for evaluation since she is there already. She is not having any headache, vision changes or RUQ pain currently. She is aware appt is recommended for this week and advised if she finds a sooner ride to call back to reschedule appointment. MOSHE Marr Sara, MD 06/08/2024 12:29 PM Signed Noted thanks Allergies As of Date: 06/08/2024 Noted Allergy Reaction DEXTROAMPHETAMINE 05/15/2024 1 - Mental Status Change Comments: Per patient - hallucinations GABAPENTIN 04/24/2024 2 - Rash SEASONAL ALLERGIES 12/12/2017 3 - Cough Date Reviewed: 06/07/2024 Reviewed by: Xochitl Genao RN - Fully Assessed Reason for Visit: Appointment [186] Prescriptions as of 06/08/2024 - Blood Pressure Monitor Use as directed - labetalol (TRANDATE) 200 mg tablet Take 4 tablets by mouth every 8 hours. - NIFEdipine ER (PROCARDIA XL) 60 mg 24 hr tablet Take 1 tablet by mouth two times a day. - acetaminophen (TYLENOL) 500 mg tablet Take 2 tablets by mouth every 6 hours as needed for pain for up to 10 days. - ibuprofen (MOTRIN) 600 mg tablet Take 1 tablet by mouth every 6 hours as needed for pain for up to 10 days. - oxyCODONE IR (ROXICODONE) 5 mg immediate release tablet Take 1 tablet by mouth every 6 hours as needed for up to 3 days. - aspirin, enteric coated (ASPIRIN, ENTERIC COATED) 81 mg EC tablet Take 1 tablet by mouth once daily. - famotidine (PEPCID AC) 20 mg tablet Take 1 tablet by mouth two times a day. - folic acid 1 mg tablet Take 3 tablets by mouth once daily. - sertraline (ZOLOFT) 50 mg tablet Take 50 mg by mouth once daily. Patient taking as needed because it makes her nauseated when she does take it - vit/iron fum/folic ac (RIGHT STEP VITAMINS ORAL) Take by mouth. Gummy - levETIRAcetam (KEPPRA) 500 mg tablet Take 1,000 mg by mouth two times a day. - fluticasone (FLONASE) 50 mcg/actuation nasal spray Use 1 [place] in each nostril once daily. Facility-Administer ed Medications as of 06/08/2024 - labetalol 800 mg tab(s) (TRANDATE) - ibuprofen 600 mg tab(s) (MOTRIN) - glycerin-witch ed 1 Each topical pads - benzocaine-menthol 20-0.5 % (DERMOPLAST) - dibucaine topical ointment 1% (NUPERCAINAL) - hydrocortisone topical cream 2.5% - ondansetron (PF) 4 mg injection (ZOFRAN) - vitamin with folic acid 1 mg 1 tablet - docusate sodium 200 mg cap(s) (COLACE) - simethicone, chewable 80 mg tab(s) (MYLICON) - calcium carbonate 500 mg chewable tab(s) (TUMS) - aluminum-magnesium hydroxide-simethico ne 200-200-20 mg/5 mL 30 mL - magnesium hydroxide 400 mg/5 mL 30 mL (MOM) - bisacodyl 10 mg suppository (DULCOLAX) - measles mumps rubella MMR vaccine 0.5 mL injection (M-M-R II) - tetanus diphtheria pertussis Tdap vaccine (PF) 0.5 mL injection (ADACEL) - RhoD immune globulin 300 mcg injection (RHOPHYLAC) - oxyCODONE IR 5-10 mg tab(s) (ROXICODONE) - morphine 2-4 mg injection - NIFEdipine ER 60 mg tab(S) (PROCARDIA XL) - calcium gluconate 1 g injection - acetaminophen 1,000 mg tab(s) (TYLENOL) - levETIRAcetam 1,000 mg CUP (KEPPRA) Problem List As Of Date 06/08/2024 Noted Resolved Dislocation of Elbow [832] 10/11/2003 02/21/2010 IDIOPATHIC SCOLIOSIS [M41.20] 01/30/2005 Neurofibromatosis, type 1 (von Recklinghausen's* MIGRAINE NOS W/O MENTN INTRACTABLE [G43.909] 02/26/2006 BRAIN NEOPLASM NOS [D49.6] 10/14/2007 Dislocated Elbow [S53.106A] 02/21/2010 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 Plan of Care: Follow-Up: Tech Reassessment Nursing Admission Assessment Malnutrition Score: Nutrition Intake: Diet Orders (From admission, onward) Start Ordered 06/02/241914 DIET REGULAR START NOW 06/02/241909 Average intake over: Unable to determine Appetite: Fair (patient reports good Po intakes, forcing herself to eat in order to be able to breastfeed) GI Symptoms: None Anthropometrics: Body mass index is 33.44 kg/m?. Usual Weight: 70.3 kg (155 lb) (reports pre- weight between 150-160#) Weight Change: (no new weight available post delivery) Food Preferences: patient reports being a picky eater MNT Billing: $ Routine Care : 1-15 minutes SIGNATURE: Nancy Rock DTR PATIENT NAME: Pablo Alarcon DATE: June 08, 2024 TIME: 1:01 PM [facility] CNDSon 06-07-2024 CNDS HNO ID: [id number] Author: NANCY HILARIO MD Service: Obstetrics Author Type: Physician Type: Discharge Summary Filed: 06/08/2024 08:33 Note Text: DISCHARGE SUMMARY OBSTETRICS PATIENT NAME: Pablo Alarcon ADMISSION DATE: 05/30/2024 DISCHARGE DATE: 06/08/2024 Attending Physician: Gardenia Maradiaga DO Code Status: Not on file Treatment Team: Attending Provider: Gardenia Maradiaga DO Maternal Obstetric Provider: Michele Garland Reason for Hospitalization: Intrauterine . Principal Problem: Hypertension complicating , delivered, current hospitalization (POA: Yes) Active Problems: Neurofibromatosis, type 1 (von Recklinghausen's disease) (HCC) (POA: Yes) Learning disability (POA: Yes) History of seizures (POA: Yes) History of nicotine vaping (POA: Yes) Anxiety and depression (POA: Yes) Arnold-Chiari malformation (HCC) (POA: Yes) Rubella non-immune status, antepartum (POA: Yes) Chronic hypertension with superimposed pre-eclampsia (POA: Yes) Asthma (POA: Yes) state (POA: Unknown) Labor and delivery indication for care or intervention (POA: Unknown) Resolved Problems: cardiac anomaly complicating , antepartum (POA: Yes) Leukocytosis (POA: Unknown) Prematurity (POA: Yes) Chest pain (POA: Unknown) Hypoxia (POA: Unknown) Pulmonary edema (POA: Unknown) PROCEDURES/SURGERY DURING HOSPITALIZATION: Delivery Summary: Micah Alarcon [[id number]] Delivery Information: Delivery Date: 06/02/24 Delivery type: , Low Transverse Delivering Clinician: Jocelyn Jennings MD [place]: Gender: Male Weight (grams): 1510 g One Minute : 8 Five Minute : 9 Procedures (if applicable) Recent Surgical Summary Past Procedures (05/08/2024 to Today) Date Procedure/Visit Type Providers Loc / Dept 06/02/2024 SECTION Jocelyn Jennings (Primary)[facility] Hospital Course: 28 year old female who is Postoperative Day #5 from delivery as noted above. Pt's peripartum course was complicated by DEBBIE with SF. Consulting Teams During Hospitalization: None Patient Condition @ Discharge: Good Discharge Disposition: Home/Self Care Specific Concerns for Follow-up Post Discharge: Routine Care, Pre- eclampsia , Mental Health, and Maintenance of chronic medical problems Information Provided to Patient: Activity When You Leave the Hospital Gradually increase your activity level until back to normal at approximately 6 weeks post- (Walking and stairs as tolerated) Gradually increase your activity level until back to normal at approximately 6 weeks post- (Walking and stairs as tolerated) May use stairs May use stairs No baths for 6 weeks to allow the cervix to close (this includes swimming pools and hot tubs) No baths for 6 weeks to allow the cervix to close (this includes swimming pools and hot tubs) No driving for 2 weeks No driving for 2 weeks No driving until you stop taking narcotic medicine and you are able to respond to adverse traffic conditions: Until you are not too sore to stop or turn quickly No driving until you stop taking narcotic medicine and you are able to respond to adverse traffic conditions: Until you are not too sore to stop or turn quickly No lifting greater than 15 pounds for six weeks No lifting greater than 15 pounds for six weeks No walking restrictions No walking restrictions Shower daily, towel or blow dry incision (low heat setting) Shower daily, towel or blow dry incision (low heat setting) Six Weeks Pelvic Rest - This means no sex, tampons, douching or any items in your vagina Six Weeks Pelvic Rest - This means no sex, tampons, douching or any items in your vagina Diet Instructions Resume a regular diet with emphasis on healthy and iron rich foods. Nursing moms need 500 EXTRA calories a day to support breast milk production. Resume a regular diet with emphasis on healthy and iron rich foods. Nursing moms need 500 EXTRA calories a day to support breast milk production. Resume your pre-hospital diet Wound/Surgical Site Care Check your incision for signs of infection: redness, swelling, drainage Check your incision for signs of infection: redness, swelling, drainage Do not apply any lotions or powders near any incision Do not apply any lotions or powders near any incision Do not cover incision with any bandage Do not cover incision with any bandage Keep your incision clean and dry Keep your incision clean and dry Steri-strips may fall off in the shower. If they have not fallen off on their own after 7 days from surgery, they should be removed. Steri-strips may fall off in the shower. If they have not fallen off on their own after 7 days from surgery, they should be removed. You are being sent home with steri-strips on your incision. You may shower. Pat incision dry and keep clean. (more content not included)... Normal [facility] NURSING PROGon 06-07-2024 NURSING PROG HNO ID: [id number] Author: HALIMA BECKER RN Service: Nursing Author Type: Registered Nurse Type: Nursing Progress Note Filed: 06/08/2024 00:04 Note Text: This nurse Epic chatted MD Huber the following: so patient just told me that she struggles with anxiety and depression. she takes xanax when she is not but stopped it and was switched to zoloft during . she said the zoloft made her symptoms worse, so her doctor told her to stop taking it. she has been untreated during her . but she is stating she feels like her anxiety and depression is at the point she needs to take something for it again. she wants to take xanax as prescribed before but doesn't know if that is safe for . she states with all that is going on with baby and then this prolonged stay in hospital she is getting very anxious and can feel that she is getting depressed. and she states she can't talk to her counselor about it until she is discharged also in regards to her BP meds. she said her primary doctor stated that high doses of BP meds don't work for her , and she wants to know if she can go back on what she was taking before . she thinks it is Lisinopril 25 or 50mg. she states it worked for her BP and she didn't feel as bad as this medication is making her feel. I told her we would need to know exactly what medication and dosage she was taking before . she states will call MD in morning and ask. I told her I would tell you what she said, but it would be up to the doctors to make that decision. [facility] NURSING PROG HNO ID: [id number] Author: XOCHITL GENAO RN Service: ? Author Type: Registered Nurse Type: Nursing Progress Note Filed: 06/07/2024 18:24 Note Text: BP monitor given to pt and demonstrated and explained use as well as parameters to call or go to OB ED. Pt and sig other both verbalized understanding. [facility] CNDSon 06-05-2024 CNDS HNO ID: [id number] Author: RAHEEM HOWARD DO Service: Obstetrics Author Type: Physician Type: Discharge Summary Filed: 06/05/2024 16:43 Note Text: DISCHARGE SUMMARY OBSTETRICS PATIENT NAME: Pablo Alarcon ADMISSION DATE: 05/30/2024 DISCHARGE DATE: 06/06/24 Attending Physician: Gardenia Maradiaga DO Code Status: Not on file Treatment Team: Attending Provider: Gardenia Maradiaga DO Maternal Obstetric Provider: Michele Garland Reason for Hospitalization: Intrauterine . Principal Problem: Hypertension complicating , delivered, current hospitalization (POA: Yes) Active Problems: Neurofibromatosis, type 1 (von Recklinghausen's disease) (HCC) (POA: Yes) Learning disability (POA: Yes) History of seizures (POA: Yes) History of nicotine vaping (POA: Yes) Anxiety and depression (POA: Yes) Arnold-Chiari malformation (HCC) (POA: Yes) Rubella non-immune status, antepartum (POA: Yes) Chronic hypertension with superimposed pre-eclampsia (POA: Yes) Asthma (POA: Yes) state (POA: Unknown) Labor and delivery indication for care or intervention (POA: Unknown) Resolved Problems: cardiac anomaly complicating , antepartum (POA: Yes) Leukocytosis (POA: Unknown) Prematurity (POA: Yes) Chest pain (POA: Unknown) Hypoxia (POA: Unknown) Pulmonary edema (POA: Unknown) PROCEDURES/SURGERY DURING HOSPITALIZATION: Delivery Summary: Micah Alarcon [[id number]] Delivery Information: Delivery Date: 06/02/24 Delivery type: , Low Transverse Delivering Clinician: Jocelyn Jennings MD : Gender: Male Weight (grams): 1510 g One Minute : 8 Five Minute : 9 Procedures (if applicable) Recent Surgical Summary Past Procedures (05/06/2024 to Today) Date Procedure/Visit Type Providers Loc / Dept 06/02/2024 SECTION Jocelyn Jennings (Primary)Ghada Casiano [facility] Hospital Course: 28 year old female who is Postoperative Day #4 from delivery as noted above. Pablo Alarcon is a 28 year old who presented on 05/30 at 31w4d gestation as transfer from outside hospital. Patient's was complicated by chronic hypertension on medications, anxiety and depression, seizures, learning disability, neurofibromatosis, Ebstein anomaly. At outside hospital, patient had isolated severe range blood pressure and received treatment with IV labetalol and was started on magnesium. On admission, she was found to have elevated UPC and met criteria for superimposed pre eclampsia without severe features. She received betamethasone for lung maturity in setting of prematurity. 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 At 32w gestation, she developed chest pain, hypoxia, and difficulty breathing. She was started on oxygen by nasal cannula. Chest XR showed pulmonary edema. Given new chest XR finding of pulmonary edema, patient met criteria for superimposed pre eclampsia with severe features. She was started on magnesium for seizure prophylaxis. She received a dose of IV Lasix. Delivery was recommended. Induction was started with cytotec at 0.5 cm cervical dilation. She developed persistent category II tracing approximately 4 hours after administration of cytotec with recurrent late decelerations. Initial measures including IV fluids and repositioning did not resolve or improve tracing. At 1.5 hours of persistent category II tracing, delivery via primary low transverse delivery was recommended for persistent category II tracing. Given patient's history of neurofibromatosis, patient received MRI of spine without IV contrast during admission. However, per anesthesia, lack of intravenous contrast limits evaluation of small intradural masses, so general anesthesia was recommended. Plan of care was discussed with patient and her support people and decision was made to proceed with delivery under general anesthesia. Afterwards she was continued on Magnesium ppx. Her blood pressures were controlled with procardia 60 XL BID and labetalol 300 TID. She was discharged [facility] on [facility] to be close to her baby in the [facility] NICU. Consulting Teams During Hospitalization: maternal medicine Patient Condition @ Discharge: Good Discharge Disposition: Home/Self Care Specific Concerns for Follow-up Post Discharge: Routine Care, Pre- eclampsia , and Incisional/Perineal Care Information Provided to Patient: Activity When You Leave the Hospital Gradually increase your activity level until back to normal at approximately 6 weeks post- (Walking and stairs as tolerated) May use stairs No baths for 6 weeks to allow the cervix to close ( (more content not included)... Normal [facility] Basic metabolic 2000 panelon 06-04-2024 Anion gap [Moles/Vol] 11 mmol/L Normal 8-15 [facility] Comment on above: Order Comment: Speci men Type: BLOOD SPECIMENOrdering Facility: [facility] Address: [address] [place] [address] Performed By: #### 2 4321-2 ####[facility][1] LABORATORYCLIA [id number] [place] [address] [place] Calcium [Mass/Vol] 7.9 mg/dL Low 8.5-10.2 [facility] Comment on above: Order Comment: Speci men Type: BLOOD SPECIMENOrdering Facility: [facility] Address: [address] [place] [address] Performed By: #### 2 4321-2 ####[facility][1] LABORATORYCLIA [id number] [place] [address] [place] Chloride [Moles/Vol] 98 mmol/L Normal 98-107 [facility] Comment on above: Order Comment: Speci men Type: BLOOD SPECIMENOrdering Facility: [facility] Address: [address] [place] [address] Performed By: #### 2 4321-2 ####[facility][1] LABORATORYCLIA [id number] [place] [address] [place] CO2 [Moles/Vol] 23 mmol/L Normal 22-30 [facility] Comment on above: Order Comment: Speci men Type: BLOOD SPECIMENOrdering Facility: [facility] Address: [address] [place] [address] Performed By: #### 2 4321-2 ####[facility][1] LABORATORYCLIA [id number] [address] [place] Creatinine [Mass/Vol] 0.95 mg/dL Normal 0.58-0.96 [facility] Comment on above: Order Comment: Speci men Type: BLOOD SPECIMENOrdering Facility: [facility] Address: [address] [place] [address] Performed By: #### 2 4321-2 ####[facility][1] LABORATORYCLIA [id number] [address] Creatinine and Glomerular filtration rate.predicted panel (S/P/Bld) 84 mL/min/1.73m??? Normal >=60 [facility] Comment on above: Order Comment: Speci men Type: BLOOD SPECIMENOrdering Facility: [facility] Address: [address] [place] [address] Result Comment: Shannon mated Glomerular Filtration Rate (eGFR) is calculated using the 2020 CKD-EPI creatinine equation. This equation utilizes serum creatinine, sex, and age as parameters. The creatinine assay has traceable calibration to isotope dilution-mass spectrometry. Refer to KDIGO guidelines for clinical interpretation. In patients with unstable renal function, e.g. those with acute kidney injury, the eGFR may not accurately reflect actual GFR. Performed By: #### 2 4321-2 ####[facility][1] LABORATORYCLIA [id number] [address] [place] Glucose [Mass/Vol] 93 mg/dL Normal 74-99 [facility] Comment on above: Order Comment: Speci men Type: BLOOD SPECIMENOrdering Facility: [facility] Address: [address] [place] [address] Result Comment: The [place] Diabetes Association (ADA) provides guidance for cutoff values for fasting glucose and random glucose. The ADA defines fasting as no caloric intake for at least 8 hours. Fasting plasma glucose results between 100 to 125 [...] Standards of Medical Care in Diabetes 2016, [employer] Diabetes Association. Diabetes Care. 2016.39(Suppl 1). Performed By: #### 2 4321-2 ####[facility][1] LABORATORYCLIA [id number] [place] [address] [place] Potassium [Moles/Vol] 4.9 mmol/L Normal 3.7-5.1 [facility] Comment on above: Order Comment: Marisa mckeon Type: BLOOD SPECIMENOrdering Facility: [facility] Address: [address] [place] [address] Performed By: #### 2 4321-2 ####[facility][1] LABORATORYCLIA [id number] [place] [address] [place] Sodium [Moles/Vol] 132 mmol/L Low 136-144 [facility] Comment on above: Order Comment: Speci men Type: BLOOD SPECIMENOrdering Facility: [facility] Address: [address] [place] [address] Performed By: #### 2 4321-2 ####[facility][1] LABORATORYCLIA [id number] [place] [address] [place] Urea nitrogen [Mass/Vol] 29 mg/dL High 7-21 [facility] Comment on above: Order Comment: Speci men Type: BLOOD SPECIMENOrdering Facility: [facility] Address: [address] [place] [address] Performed By: #### 2 4321-2 ####[facility] LABORATORYCLIA [id number] [address] Comprehensive metabolic 2000 panelon 06-04-2024 Albumin [Mass/Vol] 3.2 g/dL Low 3.9-4.9 [facility] Comment on above: Order Comment: Speci men Type: BLOOD SPECIMENOrdering Facility: [facility] Address: [address] [place] [address] Performed By: #### 2 4323-8 ####[facility][1] LABORATORYCLIA [id number] [address] STATES OF [facility] ALP [Catalytic activity/Vol] 115 U/L Normal 34-123 [facility] Comment on above: Order Comment: Speci men Type: BLOOD SPECIMENOrdering Facility: [facility] Address: [address] [place] [address] Performed By: #### 2 4323-8 ####[facility][1] LABORATORYCLIA [id number] [address] STATES OF [facility] ALT With P-5'-P [Catalytic activity/Vol] 32 U/L Normal 7-38 [facility] Comment on above: Order Comment: Speci men Type: BLOOD SPECIMENOrdering Facility: [facility] Address: [address] [place] [address] Performed By: #### 2 4323-8 ####[facility][1] LABORATORYCLIA [id number] [address] Anion gap [Moles/Vol] 11 mmol/L Normal 8-15 [facility] Comment on above: Order Comment: Speci men Type: BLOOD SPECIMENOrdering Facility: [facility] Address: [address] [place] [address] Performed By: #### 2 4323-8 ####[facility] LABORATORYCLIA [id number] [address] [place] AST With P-5'-P [Catalytic activity/Vol] 33 U/L Normal 13-35 [facility] Comment on above: Order Comment: Speci men Type: BLOOD SPECIMENOrdering Facility: [facility] Address: [address] [place] [address] Performed By: #### 2 4323-8 ####[facility] LABORATORYCLIA [id number] [place] [address] [place] Bilirubin [Mass/Vol] 0.2 mg/dL Normal 0.2-1.3 [facility] Comment on above: Order Comment: Speci men Type: BLOOD SPECIMENOrdering Facility: [facility] Address: [address] [place] [address] Performed By: #### 2 4323-8 ####[facility]ORATORYCLIA [id number] [place] [address] [place] Calcium [Mass/Vol] 7.2 mg/dL Low 8.5-10.2 [facility] Comment on above: Order Comment: Speci men Type: BLOOD SPECIMENOrdering Facility: [facility] Address: [address] [place] [address] Performed By: #### 2 4323-8 ####[facility][1] LABORATORYCLIA [id number] [place] [address] [place] Chloride [Moles/Vol] 102 mmol/L Normal 98-107 [facility] Comment on above: Order Comment: Speci men Type: BLOOD SPECIMENOrdering Facility: [facility] Address: [address] [place] [address] Performed By: #### 2 4323-8 ####[facility] LABORATORYCLIA [id number] [place] [address] [place] CO2 [Moles/Vol] 22 mmol/L Normal 22-30 [facility] Comment on above: Order Comment: Speci men Type: BLOOD SPECIMENOrdering Facility: [facility] Address: [address] [place] [address] Performed By: #### 2 4323-8 ####[facility]ORATORYCLIA [id number] [place] [address] [place] Creatinine [Mass/Vol] 1.34 mg/dL High 0.58-0.96 [facility] Comment on above: Order Comment: Marisa mckeon Type: BLOOD SPECIMENOrdering Facility: [facility] Address: [address] [place] [address] Performed By: #### 2 4323-8 ####[facility][1] LABORATORYCLIA [id number] [place] [id number] [place] Creatinine and Glomerular filtration rate.predicted panel (S/P/Bld) 56 mL/min/1.73m??? Low >=60 [facility] Comment on above: Order Comment: Marisa mike Type: BLOOD SPECIMENOrdering Facility: [facility] Address: [address] [place] [address] Result Comment: Shannon mated Glomerular Filtration Rate (eGFR) is calculated using the 2020 CKD-EPI creatinine equation. This equation utilizes serum creatinine, sex, and age as parameters. The creatinine assay has traceable calibration to isotope dilution-mass spectrometry. Refer to KDIGO guidelines for clinical interpretation. In patients with unstable renal function, e.g. those with acute kidney injury, the eGFR may not accurately reflect actual GFR. Performed By: #### 2 4323-8 ####[facility][1] LABORATORYCLIA [id number] [place] [address] [place] Glucose [Mass/Vol] 95 mg/dL Normal 74-99 [facility] Comment on above: Order Comment: Marisa mike Type: BLOOD SPECIMENOrdering Facility: [facility] Address: [address] [place] [address] Result Comment: The [place] Diabetes Association (ADA) provides guidance for cutoff values for fasting glucose and random glucose. The ADA defines fasting as no caloric intake for at least 8 hours. Fasting plasma glucose results between 100 to 125 [...] Standards of Medical Care in Diabetes 2016, [place] Diabetes Association. Diabetes Care. 2016.39(Suppl 1). Performed By: #### 2 4323-8 ####[facility][1] LABORATORYCLIA [id number] [place] [address] [place] Potassium [Moles/Vol] 4.6 mmol/L Normal 3.7-5.1 [facility] Comment on above: Order Comment: Speci men Type: BLOOD SPECIMENOrdering Facility: [facility] Address: [address] [place] [address] Performed By: #### 2 4323-8 ####[facility][1] LABORATORYCLIA [id number] [place] [address] [place] Protein [Mass/Vol] 6.2 g/dL Low 6.3-8.0 [facility] Comment on above: Order Comment: Speci men Type: BLOOD SPECIMENOrdering Facility: [facility] Address: [address] [place] [address] Performed By: #### 2 4323-8 ####[facility][1] LABORATORYCLIA [id number] [place] [address] [place] Sodium [Moles/Vol] 135 mmol/L Low 136-144 [facility] Comment on above: Order Comment: Speci men Type: BLOOD SPECIMENOrdering Facility: [facility] Address: [address] [place] [address] Performed By: #### 2 4323-8 ####[facility][1] LABORATORYCLIA [id number] [place] [address] [place] Urea nitrogen [Mass/Vol] 34 mg/dL High 7-21 [facility] Comment on above: Order Comment: Speci men Type: BLOOD SPECIMENOrdering Facility: [facility] Address: [address] [place] [address] Performed By: #### 2 4323-8 ####[facility][1] LABORATORYCLIA [id number] [place] [address] [place] ANES POSTPROC EVALon 11-27-2 024 ANES POSTPROC EVAL HNO ID: [id number] Author: BERMERCED GARCIA APRN.CRNA Service: Anesthesiology Author Type: Nurse Custom Tailor Apprentice Type: Anesthesia Postprocedure Evaluation Filed: 06/03/2024 08:06 Note Text: POST ANESTHESIA EVALUATION NOTE : 1995 Procedure Summary Date: 06/02/24 Room / Location: [facility] Anesthesia Start: 1507 Anesthesia Stop: 1608 Procedure: SECTION Diagnosis: Surgeons: Jocelyn Jennings MD Responsible Provider: Alissa Chan APRN.CRNA Anesthesia Type: general ASA Status: 3 Anesthesia Type: general Airway Type: ETT Last Vitals Vitals Value Taken Time BP 117/67 06/03/24 0630 Temp 36.8 ?C (98.2 ?F) 06/03/24 0630 Pulse 70 06/03/24 0630 Resp 16 06/03/24 0630 SpO2 93 % 06/03/24 0630 Micah Alarcon [[id number]] Baby Delivery: 06/02/2024 1517 Post Anesthesia Patient Status Patient Evaluation: floor. Neurological Status: aware and responsive. Pulmonary Status: breathing comfortably on room air Airway Control: returned to baseline unsupported. Cardiovascular Status: stable. Pain Management: clinically adequate Postoperative Hydration: acceptable. Intraoperative Events: no significant anesthesia events Post Operative Nausea/Vomiting Status: no significant post operative nausea or vomiting Recommendation: continue current plan of care. Anesthesia Observations No Documentation SIGNATURE: Merced Reis APRN.THROAT CUTTER PATIENT NAME: Pablo Alarcon DATE: June 03, 2024 TIME: 8:05 AM CSN: [id number] Normal [facility] CBC panel Auto (Bld)on 06-03 Erythrocyte distribution width (RBC) [Ratio] 14.8 % Normal 11.5-15.0 [facility] Comment on above: Order Comment: Speci men Type: BLOOD SPECIMENOrdering Facility: [facility] Address: [address] [place] [address] Performed By: #### 5 8410-2 ####[facility][1] LABORATORYCLIA [id number] [place] [address] [place] Hematocrit (Bld) [Volume fraction] 28.5 % Low 36.0-46.0 [facility] Comment on above: Order Comment: Speci men Type: BLOOD SPECIMENOrdering Facility: [facility] Address: [address] [place] [address] Performed By: #### 5 8410-2 ####[facility][1] LABORATORYCLIA [id number] [address] STATES OF [facility] Hemoglobin (Bld) [Mass/Vol] 9.1 g/dL Low 11.5-15.5 [facility] Comment on above: Order Comment: Speci men Type: BLOOD SPECIMENOrdering Facility: [facility] Address: [address] [place] [address] Performed By: #### 5 8410-2 ####[facility][1] LABORATORYCLIA [id number] [address] [place] MCH (RBC) [Entitic mass] 25.8 pg Low 26.0-34.0 [facility] Comment on above: Order Comment: Speci men Type: BLOOD SPECIMENOrdering Facility: [facility] Address: [address] [place] [address] Performed By: #### 5 8410-2 ####[facility][1] LABORATORYCLIA [id number] [address] [place] MCHC (RBC) [Mass/Vol] 31.9 g/dL Normal 30.5-36.0 [facility] Comment on above: Order Comment: Speci men Type: BLOOD SPECIMENOrdering Facility: [facility] Address: [address] [place] [address] Performed By: #### 5 8410-2 ####[facility][1] LABORATORYCLIA [id number] [address] [place] MCV (RBC) [Entitic vol] 80.7 fL Normal 80.0-100.0 [facility] Comment on above: Order Comment: Speci men Type: BLOOD SPECIMENOrdering Facility: [facility] Address: [address] [place] [address] Performed By: #### 5 8410-2 ####[facility][1] LABORATORYCLIA [id number] [address] [place] Nucleated RBC (Bld) [#/Vol] 10*3/uL Normal <0.01 [facility] Comment on above: Order Comment: Speci men Type: BLOOD SPECIMENOrdering Facility: [facility] Address: [address] [place] [address] Performed By: #### 5 8410-2 ####[facility][1] LABORATORYCLIA [id number] [address] [place] Platelet mean volume (Bld) [Entitic vol] 11.4 fL Normal 9.0-12.7 [facility] Comment on above: Order Comment: Speci men Type: BLOOD SPECIMENOrdering Facility: [facility] Address: [address] [place] [address] Performed By: #### 5 8410-2 ####[facility][1] LABORATORYCLIA [id number] [address] [place] Platelets (Bld) [#/Vol] 253 10*3/uL Normal 150-400 [facility] Comment on above: Order Comment: Speci men Type: BLOOD SPECIMENOrdering Facility: [facility] Address: [address] [place] [address] Performed By: #### 5 8410-2 ####[facility][1] LABORATORYCLIA [id number] [address] [place] RBC (Bld) [#/Vol] 3.53 10*6/uL Low 3.90-5.20 [facility] Comment on above: Order Comment: Speci men Type: BLOOD SPECIMENOrdering Facility: [facility] Address: [address] [place] [address] Performed By: #### 5 8410-2 ####[facility][1] LABORATORYCLIA [id number] [address] [place] WBC (Bld) [#/Vol] 23.24 10*3/uL High 3.70-11.00 [facility] Comment on above: Order Comment: Speci men Type: BLOOD SPECIMENOrdering Facility: [facility] Address: [address] [place] [address] Performed By: #### 5 8410-2 ####[facility][1] LABORATORYCLIA [id number] [place] [id number] [facility] Comprehensive metabolic 2000 panelon 06-03-2024 Albumin [Mass/Vol] 3.0 g/dL Low 3.9-4.9 [facility] Comment on above: Order Comment: Speci men Type: BLOOD SPECIMENOrdering Facility: [facility] Address: [address] [place] [address] Performed By: #### 1 9123-9, 69874-2 ####[facility][1] LABORATORYCLIA [id number] [address] [place] [facility] ALP [Catalytic activity/Vol] 113 U/L Normal 34-123 [facility] Comment on above: Order Comment: Speci men Type: BLOOD SPECIMENOrdering Facility: [facility] Address: [address] [place] [address] Performed By: #### 1 9123-9, 53434-0 ####[facility][1] LABORATORYCLIA [id number] [address] [place] ALT With P-5'-P [Catalytic activity/Vol] 50 U/L High 7-38 [facility] Comment on above: Order Comment: Speci men Type: BLOOD SPECIMENOrdering Facility: [facility] Address: [address] [place] [address] Performed By: #### 1 9123-9, 57212-8 ####[facility][1] LABORATORYCLIA [id number] [address] [place] Anion gap [Moles/Vol] 13 mmol/L Normal 8-15 [facility] Comment on above: Order Comment: Speci men Type: BLOOD SPECIMENOrdering Facility: [facility] Address: [address] [place] [address] Performed By: #### 1 9123-9, 25038-7 ####[facility][1] LABORATORYCLIA [id number] [address] [place] AST With P-5'-P [Catalytic activity/Vol] 74 U/L High 13-35 [facility] Comment on above: Order Comment: Speci men Type: BLOOD SPECIMENOrdering Facility: [facility] Address: [address] [place] [address] Performed By: #### 1 9123-9, 71150-5 ####[facility]ORATORYCLIA [id number] [place] [address] [place] Bilirubin [Mass/Vol] 0.2 mg/dL Normal 0.2-1.3 [facility] Comment on above: Order Comment: Speci men Type: BLOOD SPECIMENOrdering Facility: [facility] Address: [address] [place] [address] Performed By: #### 1 23-9, ####[facility][1] LABORATORYCLIA [id number] [place] [address] [place] Calcium [Mass/Vol] 6.7 mg/dL Low 8.5-10.2 [facility] Comment on above: Order Comment: Speci men Type: BLOOD SPECIMENOrdering Facility: [facility] Address: [address] [place] [address] Performed By: #### 1 23-9, ####[facility]ORATORYCLIA [id number] [place] [address] [place] Chloride [Moles/Vol] 95 mmol/L Low 98-107 [facility] Comment on above: Order Comment: Speci men Type: BLOOD SPECIMENOrdering Facility: [facility] Address: [address] [place] [address] Performed By: #### 1 23-9, 27924-9 ####[facility]ORATORYCLIA [id number] [place] [address] [place] CO2 [Moles/Vol] 20 mmol/L Low 22-30 [facility] Comment on above: Order Comment: Speci men Type: BLOOD SPECIMENOrdering Facility: [facility] Address: [address] [place] [address] Performed By: #### 1 9123-9, 07907-3 ####[facility][1] LABORATORYCLIA [id number] [place] [address] [place] [facility] Creatinine [Mass/Vol] 1.16 mg/dL High 0.58-0.96 [facility] Comment on above: Order Comment: Speci men Type: BLOOD SPECIMENOrdering Facility: [facility] Address: [address] [place] [address] Performed By: #### 1 9123-9, 34897-9 ####[facility][1] LABORATORYCLIA [id number] [place] [address] [facility] Creatinine and Glomerular filtration rate.predicted panel (S/P/Bld) 66 mL/min/1.73m??? Normal >=60 [facility] Comment on above: Order Comment: Marisa mckeon Type: BLOOD SPECIMENOrdering Facility: [facility] Address: [address] [place] [address] Result Comment: Shannon mated Glomerular Filtration Rate (eGFR) is calculated using the 2020 CKD-EPI creatinine equation. This equation utilizes serum creatinine, sex, and age as parameters. The creatinine assay has traceable calibration to isotope dilution-mass spectrometry. Refer to KDIGO guidelines for clinical interpretation. In patients with unstable renal function, e.g. those with acute kidney injury, the eGFR may not accurately reflect actual GFR. Performed By: #### 1 9123-9, 01578-3 ####[facility][1] LABORATORYCLIA [id number] [place] [id number] [place] Glucose [Mass/Vol] 90 mg/dL Normal 74-99 [facility] Comment on above: Order Comment: Corii mike Type: BLOOD SPECIMENOrdering Facility: [facility] Address: [address] [place] [address] Result Comment: The [place] Diabetes Association (ADA) provides guidance for cutoff values for fasting glucose and random glucose. The ADA defines fasting as no caloric intake for at least 8 hours. Fasting plasma glucose results between 100 to 125 [...] Standards of Medical Care in Diabetes 2016, [place] Diabetes Association. Diabetes Care. 2016.39(Suppl 1). Performed By: #### 1 9123-9, 34958-4 ####[facility][1] LABORATORYCLIA [id number] [place] [address] [place] Potassium [Moles/Vol] 5.4 mmol/L High 3.7-5.1 [facility] Comment on above: Order Comment: Speci men Type: BLOOD SPECIMENOrdering Facility: [facility] Address: [address] [place] [address] Performed By: #### 1 23-9, ####[facility][1] LABORATORYCLIA [id number] [place] [address] [place] Protein [Mass/Vol] 5.7 g/dL Low 6.3-8.0 [facility] Comment on above: Order Comment: Speci men Type: BLOOD SPECIMENOrdering Facility: [facility] Address: [address] [place] [address] Performed By: #### 1 23-9, ####[facility][1] LABORATORYCLIA [id number] [address] [place] Sodium [Moles/Vol] 128 mmol/L Low 136-144 [facility] Comment on above: Order Comment: Speci men Type: BLOOD SPECIMENOrdering Facility: [facility] Address: [address] [place] [address] Performed By: #### 1 23-9, ####[facility][1] LABORATORYCLIA [id number] [address] [place] Urea nitrogen [Mass/Vol] 21 mg/dL Normal 7-21 [facility] Comment on above: Order Comment: Speci men Type: BLOOD SPECIMENOrdering Facility: [facility] Address: [address] [place] [address] Performed By: #### 1 9123-9, 19689-8 ####[facility]ORATORYCLIA [id number] [place] [address] [place] LDH SerPl-cCncon 06-03-2024 LDH [Catalytic activity/Vol] 315 U/L High 135-214 [facility] Comment on above: Order Comment: Speci men Type: BLOOD SPECIMENOrdering Facility: [facility] Address: [address] [place] [address] Performed By: #### 2 532-0, ####[facility][1] LABORATORYCLIA [id number] [place] [address] [place] Magnesium SerPl-mCncon 06-03 Magnesium [Mass/Vol] 7.4 mg/dL High 1.7-2.3 [facility] Comment on above: Order Comment: Speci men Type: BLOOD SPECIMENOrdering Facility: [facility] Address: [address] [place] [address] Performed By: #### 1 23-9 ####[facility][1] LABORATORYCLIA [id number] [address] [place] Magnesium [Mass/Vol] 9.0 mg/dL High 1.7-2.3 [facility] Comment on above: Order Comment: Speci men Type: BLOOD SPECIMENOrdering Facility: [facility] Address: [address] [place] [address] Performed By: #### 2 532-0, ####[facility][1] LABORATORYCLIA [id number] [place] [address] [place] Magnesium [Mass/Vol] mg/dL High 1.7-2.3 [facility] Comment on above: Order Comment: Speci men Type: BLOOD SPECIMENOrdering Facility: [facility] Address: [address] [place] [address] Performed By: #### 1 9123-9, 96485-0 ####[facility] LABORATORYCLIA [id number] [place] [address] [place] NURSING PROGon 06-03-2024 NURSING PROG HNO ID: [id number] Author: CHAPARRO MARTIN RN Service: Nursing Author Type: Registered Nurse Type: Nursing Progress Note Filed: 06/03/2024 06:46 Note Text: Notified [employer] Oh of mag level >9.7. verbal orders to stop mag drip now and recheck mag levels in 2 hours. [facility] ALLIED HEALTHon 06-02-2024 ALLIED HEALTH HNO ID: [id number] Author: KELLE CURIEL RT(R) Service: Radiology Author Type: Technologist Type: Allied Health Filed: 06/02/2024 12:18 Note Text: Radiology Service Progress Note PATIENT NAME: Pablo Alarcon DATE OF SERVICE: June 02, 2024 TIME: 12:16 PM PATIENT IDENTITY VERIFICATION COMPLETED USING TWO (2) IDENTIFIERS: Name and Date of confirmed by patient verbally and Name and Date of confirmed by identification band. FALL SCREENING: Has the patient had 2 falls in the last year or 1 fall with injury or currently using an Ambulatory Assistive Device (Walker, Cane, Wheelchair, Crutches, etc.)? Inpatient: Screened on floor PATIENT GENDER DATA: Female. status: : No status: NO. PATIENT RELEVANT IMPLANT DATA REVIEWED: Yes PATIENT PRESENTS WITH AN IMPLANTABLE OR ATTACHED VOCATIONAL TECHNICAL EDUCATION TEACHER: No RADIOLOGY DEPARTMENT: MR; Exam(s) Completed: Spine: WHOLE spine PERIPHERAL IV DATA: Not applicable SIGNED BY: RT Rasta(R) June 02, 2024 12:16 PM [facility] ANES PRE-OPon 06-02-2024 ANES PRE-OP HNO ID: [id number] Author: ALISSA CHAN APRN.CRNA Service: Anesthesiology Author Type: Nurse Custom Tailor Apprentice Type: Anesthesia Preprocedure Evaluation Filed: 06/02/2024 16:46 Note Text: OB ANESTHESIA PRE-PROCEDURE ASSESSMENT PATIENT NAME: Pablo Alarcon : 1995 [facility] ANES [employer] DRAFTSMAN: Previous OB anesthetic: epidural No OB anesthesia considerations No prior risk factors reported pre-eclampsia GERD: Denies GERD Relevant Problems CARDIO (+) Chronic hypertension affecting (+) Chronic hypertension with superimposed pre-eclampsia (+) Migraine, unspecified, without mention of intractable migraine without mention of status migrainosus NEURO-PSYCH (+) History of miscarriage (+) History of nicotine vaping (+) History of seizures (+) Migraine, unspecified, without mention of intractable migraine without mention of status migrainosus PULMONARY (+) Asthma I - PHYSICAL EVALUATION AIRWAY Patient intubated: No. Tracheostomy tube not present Mallampati: III. TM distance: >3 FB. Mouth opening: adequate. Short neck: no. Thick neck: no Lowe present: no Lip Bite Test: II Microretrognathia/M icronagthia/Recesse d Chin: No DENTAL Dental findings: teeth intact. Additional exam findings: yes. BACK Previous neurological condition or findings: condition present. Other findings: Neurofibromatosis type 1 diagnosis: Anesthesia for parturients with nuerofibromatosis is not well documented. GA is currently the technique of choice if spinal status is unknown. Spinal tumors have been documented in 40% asymptomatic patients with the disease. can engorge existing tumors and increase the growth of new nuerofibromas. MRI of spinal recommended in literature prior to any neuraxial. Neuraxial in these patients carries an increased risk of bleeding, hematoma formation, and increased ICP. Per MRI lumbar results: Please note the lack of intravenous contrast limits evaluation of small intradural masses. GA discussed w pt and family. Pt and family agreeable to GA . II - ANESTHESIA PLAN ASA Score: 3 Anesthetic Plan: general Airway type: ETT The patient is not a current smoker. NPO Status: adequate Beta Erica Administration of chronic beta erica medication not planned. Monitoring Plan Monitoring plan: standard ASA. Post Procedure Analgesic Plan Postoperative analgesic plan: multimodal analgesia. Informed Consent Anesthetic risks, benefits, alternatives, personnel and consent discussed: yes. Patient / Responsible Alliance Party agrees to proceed: yes Patient / Surrogate agrees to blood products: Yes Potential Anesthesia issues that may suggest increased risk of complications or contraindication to planned procedure: other. 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) Chronic Hypertension Affecting History of Seizures History of Nicotine Vaping Anxiety and Depression History of Miscarriage Supervision of Other High Risk Pregnancies, Second Trimester Arnold-Chiari Malformation (Hcc) Poor Historian Abnormal Ultrasound Abnormality Affecting Management of Mother Cardiac Anomaly Complicating , Antepartum Rubella Non-Immune Status, Antepartum Chronic Hypertension With Superimposed Pre-Eclampsia Leukocytosis Asthma Prematurity Hypoxia Pulmonary Edema Labor and Delivery Indication for Care Or Intervention PAST MEDICAL HISTORY Diagnosis Date Adjustment disorder Brain tumor (HCC) optic glioma Developmental delay 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 H/O pyloric stenosis 11/1995 s/p repair Learning disability IEP, reading and spelling MIGRAINE NOS W/O MENTN INTRACTABLE Stock Neurofibromatosis, type 1 (HCC) Stock Optic nerve glioma (HCC) Left eye Periodic limb movement does not inerfere with sleep Scoliosis Seizure (HCC) Visual field constriction of right eye PAST SURGICAL HISTORY Procedure Laterality Date BOTOX INJECTION For migraines every 3 months pyloric stenosis 12/1995 UNLISTED PROCEDURE HUMERUS/ELBOW left elbow re-construction x 3 FAMILY HISTORY Problem Relation Age of Onset Asthma Mother Maternal side Cancer Mother Maternal side Diabetes Mother Maternal side other (Neurofibromatosis) Mother Cancer Father Paternal side Diabetes Father Paternal side Ischemic Heart Disease Father [place] Asthma Father Paternal side Hypertension Father Diabetes Maternal (more content not included)... Normal [facility] CBC panel Auto (Bld)on 06-02 Erythrocyte distribution width (RBC) [Ratio] 15.0 % Normal 11.5-15.0 [facility] Comment on above: Order Comment: Marisa mckeon Type: BLOOD SPECIMENOrdering Facility: [facility] Address: [address] [place] [address] Performed By: #### 5 8410-2 ####[facility][1] LABORATORYCLIA [id number] [place] [address] [place] Hematocrit (Bld) [Volume fraction] 30.6 % Low 36.0-46.0 [facility] Comment on above: Order Comment: Marisa mckeon Type: BLOOD SPECIMENOrdering Facility: [facility] Address: [address] [place] [address] Performed By: #### 5 8410-2 ####[facility][1] LABORATORYCLIA [id number] [address] STATES OF [facility] Hemoglobin (Bld) [Mass/Vol] 9.8 g/dL Low 11.5-15.5 [facility] Comment on above: Order Comment: Speci men Type: BLOOD SPECIMENOrdering Facility: [facility] Address: [address] [place] [address] Performed By: #### 5 8410-2 ####[facility][1] LABORATORYCLIA [id number] [address] MCH (RBC) [Entitic mass] 25.7 pg Low 26.0-34.0 [facility] Comment on above: Order Comment: Speci men Type: BLOOD SPECIMENOrdering Facility: [facility] Address: [address] [place] [address] Performed By: #### 5 8410-2 ####[facility][1] LABORATORYCLIA [id number] [address] MCHC (RBC) [Mass/Vol] 32.0 g/dL Normal 30.5-36.0 [facility] Comment on above: Order Comment: Speci men Type: BLOOD SPECIMENOrdering Facility: [facility] Address: [address] [place] [address] Performed By: #### 5 8410-2 ####[facility][1] LABORATORYCLIA [id number] [address] OF [facility] MCV (RBC) [Entitic vol] 80.3 fL Normal 80.0-100.0 [facility] Comment on above: Order Comment: Speci men Type: BLOOD SPECIMENOrdering Facility: [facility] Address: [address] [place] [address] Performed By: #### 5 8410-2 ####[facility][1] LABORATORYCLIA [id number] [address] Nucleated RBC (Bld) [#/Vol] 0.05 10*3/uL High <0.01 [facility] Comment on above: Order Comment: Speci men Type: BLOOD SPECIMENOrdering Facility: [facility] Address: [address] [place] [address] Performed By: #### 5 8410-2 ####[facility][1] LABORATORYCLIA [id number] [address] Platelet mean volume (Bld) [Entitic vol] 11.8 fL Normal 9.0-12.7 [facility] Comment on above: Order Comment: Speci men Type: BLOOD SPECIMENOrdering Facility: [facility] Address: [facility] [place] [address] Performed By: #### 5 8410-2 ####[facility][1] LABORATORYCLIA [id number] [address] OF [place] Platelets (Bld) [#/Vol] 279 10*3/uL Normal 150-400 [facility] Comment on above: Order Comment: Speci men Type: BLOOD SPECIMENOrdering Facility: [facility] Address: [address] [place] [address] Performed By: #### 5 8410-2 ####[facility][1] LABORATORYCLIA [id number] [address] [place] RBC (Bld) [#/Vol] 3.81 10*6/uL Low 3.90-5.20 [facility] Comment on above: Order Comment: Speci men Type: BLOOD SPECIMENOrdering Facility: [facility] Address: [address] [place] [address] Performed By: #### 5 8410-2 ####[facility][1] LABORATORYCLIA [id number] [address] OF [place] WBC (Bld) [#/Vol] 26.27 10*3/uL High 3.70-11.00 [facility] Comment on above: Order Comment: Speci men Type: BLOOD SPECIMENOrdering Facility: [facility] Address: [address] [place] [address] Performed By: #### 5 8410-2 ####[facility][1] LABORATORYCLIA [id number] [address] Comprehensive metabolic 2000 panelon 06-02-2024 Albumin [Mass/Vol] 3.4 g/dL Low 3.9-4.9 [facility] Comment on above: Order Comment: Speci men Type: BLOOD SPECIMENOrdering Facility: [facility] Address: [address] [place] [address] Performed By: #### 2 4323-8 ####[facility][1] LABORATORYCLIA [id number] [address] STATES OF [facility] ALP [Catalytic activity/Vol] 121 U/L Normal 34-123 [facility] Comment on above: Order Comment: Speci men Type: BLOOD SPECIMENOrdering Facility: [facility] Address: [address] [place] [address] Performed By: #### 2 4323-8 ####[facility][1] LABORATORYCLIA [id number] [address] STATES OF [facility] ALT With P-5'-P [Catalytic activity/Vol] 23 U/L Normal 7-38 [facility] Comment on above: Order Comment: Speci men Type: BLOOD SPECIMENOrdering Facility: [facility] Address: [address] [place] [address] Performed By: #### 2 4323-8 ####[facility][1] LABORATORYCLIA [id number] [address] Anion gap [Moles/Vol] 14 mmol/L Normal 8-15 [facility] Comment on above: Order Comment: Speci men Type: BLOOD SPECIMENOrdering Facility: [facility] Address: [address] [place] [address] Performed By: #### 2 4323-8 ####[facility][1] LABORATORYCLIA [id number] [address] STATES [place] AST With P-5'-P [Catalytic activity/Vol] 31 U/L Normal 13-35 [facility] Comment on above: Order Comment: Speci men Type: BLOOD SPECIMENOrdering Facility: [facility] Address: [address] [place] [address] Performed By: #### 2 4323-8 ####[facility] LABORATORYCLIA [id number] [place] [address] [place] Bilirubin [Mass/Vol] 0.2 mg/dL Normal 0.2-1.3 [facility] Comment on above: Order Comment: Speci men Type: BLOOD SPECIMENOrdering Facility: [facility] Address: [address] [place] [address] Performed By: #### 2 4323-8 ####[facility] LABORATORYCLIA [id number] [place] [address] [place] Calcium [Mass/Vol] 8.5 mg/dL Normal 8.5-10.2 [facility] Comment on above: Order Comment: Speci men Type: BLOOD SPECIMENOrdering Facility: [facility] Address: [address] [place] [address] Performed By: #### 2 4323-8 ####[facility][1] LABORATORYCLIA [id number] [place] [address] [place] Chloride [Moles/Vol] 102 mmol/L Normal 98-107 [facility] Comment on above: Order Comment: Speci men Type: BLOOD SPECIMENOrdering Facility: [facility] Address: [address] [place] [address] Performed By: #### 2 4323-8 ####[facility] LABORATORYCLIA [id number] [place] [address] [place] CO2 [Moles/Vol] 20 mmol/L Low 22-30 [facility] Comment on above: Order Comment: Speci men Type: BLOOD SPECIMENOrdering Facility: [facility] Address: [address] [place] [address] Performed By: #### 2 4323-8 ####[facility] LABORATORYCLIA [id number] [place] [address] [place] Creatinine [Mass/Vol] 0.75 mg/dL Normal 0.58-0.96 [facility] Comment on above: Order Comment: Speci men Type: BLOOD SPECIMENOrdering Facility: [facility] Address: [address] [place] [address] Performed By: #### 2 4323-8 ####[facility] CARMELCLIA [id number] [place] [id number] [facility] Creatinine and Glomerular filtration rate.predicted panel (S/P/Bld) 111 mL/min/1.73m??? Normal >=60 [facility] Comment on above: Order Comment: Marisa mckeon Type: BLOOD SPECIMENOrdering Facility: [facility] Address: [address] [place] [address] Result Comment: Shannon mated Glomerular Filtration Rate (eGFR) is calculated using the 2020 CKD-EPI creatinine equation. This equation utilizes serum creatinine, sex, and age as parameters. The creatinine assay has traceable calibration to isotope dilution-mass spectrometry. Refer to KDIGO guidelines for clinical interpretation. In patients with unstable renal function, e.g. those with acute kidney injury, the eGFR may not accurately reflect actual GFR. Performed By: #### 2 4323-8 ####[facility] RANDALLIAIA [id number] [address] STATES [facility] Glucose [Mass/Vol] 92 mg/dL Normal 74-99 [facility] Comment on above: Order Comment: Marisa mckeon Type: BLOOD SPECIMENOrdering Facility: [facility] Address: [address] [place] [address] Result Comment: The [place] Diabetes Association (ADA) provides guidance for cutoff values for fasting glucose and random glucose. The ADA defines fasting as no caloric intake for at least 8 hours. Fasting plasma glucose results between 100 to 125 [...] Standards of Medical Care in Diabetes 2016, [place] Diabetes Association. Diabetes Care. 2016.39(Suppl 1). Performed By: #### 2 4323-8 ####[facility][1] LABORATORYIA [id number] [place] [id number] [facility] Potassium [Moles/Vol] 4.4 mmol/L Normal 3.7-5.1 [facility] Comment on above: Order Comment: Speci men Type: BLOOD SPECIMENOrdering Facility: [facility] Address: [address] [place] [address] Performed By: #### 2 4323-8 ####[facility][1] LABORATORYCLIA [id number] [address] [place] Protein [Mass/Vol] 5.8 g/dL Low 6.3-8.0 [facility] Comment on above: Order Comment: Speci men Type: BLOOD SPECIMENOrdering Facility: [facility] Address: [address] [place] [address] Performed By: #### 2 4323-8 ####[facility][1] LABORATORYCLIA [id number] [address] STATES [facility] Sodium [Moles/Vol] 136 mmol/L Normal 136-144 [facility] Comment on above: Order Comment: Speci men Type: BLOOD SPECIMENOrdering Facility: [facility] Address: [address] [place] [address] Performed By: #### 2 4323-8 ####[facility][1] LABORATORYCLIA [id number] [address] STATES [facility] Urea nitrogen [Mass/Vol] 18 mg/dL Normal 7-21 [facility] Comment on above: Order Comment: Speci men Type: BLOOD SPECIMENOrdering Facility: [facility] Address: [address] [place] [address] Performed By: #### 2 4323-8 ####[facility][1] LABORATORYCLIA [id number] [address] [place] ECG COMPLETEon 06-02-2024 ECG COMPLETE Ventricular Rate : 99 BPM Atrial Rate : 99 BPM P-R Interval : 126 ms QRS Duration : 78 ms Q-T Interval : 354 ms QTC Calculation(Bazett) : 454 ms Calculated P [place] : 35 degrees Calculated R [place] : 54 degrees Calculated T [place] : 7 degrees NORMAL SINUS RHYTHM NORMAL ECG NO PREVIOUS ECGS AVAILABLE Confirmed by MD SPANGLER VINAY ([id number]) on 06/02/2024 10:57:26 AM NAME : PABLO ALARCON PID : [id number] : 1995 Gender : Female Race : ORD : [id number] Procedure Date : Jun 02 2024 05:51:44 Edit Date : Jun 02 2024 10:57:29 Diagnosis: NORMAL SINUS RHYTHM NORMAL ECG NO PREVIOUS ECGS AVAILABLE Confirmed by MD SPANGLER VINAY ([id number]) on 06/02/2024 10:57:26 AM Test Reason : Chest Pain Location : 200 : [facility] LDR Overread By : MD SPANGLER VINAY Edited By : MD SPANGLER VINAY Referred By : , Acquired by : MORALES CESPEDES [facility] HIGH SENSITIVITY TROPONIN To n 06-02-2024 Troponin T.cardiac High sensitivity method [Mass/Vol] 13 ng/L High <12 [facility] Comment on above: Order Comment: Speci men Type: BLOOD SPECIMENOrdering Facility: [facility] Address: [address] [place] [address] Performed By: #### 9 5941-1 #### [facility][1] LABORATORY CLIA [id number] [address] Troponin T.cardiac High sensitivity method [Mass/Vol] 13 ng/L High <12 [facility] Comment on above: Order Comment: Speci men Type: BLOOD SPECIMENOrdering Facility: [facility] Address: [address] [place] [address] Performed By: #### H STNT ####[facility][1] LABORATORYCLIA [id number] [address] OF [facility] MRI CERVICAL SPINE WO IVCONo n 06-02-2024 MRI CERVICAL SPINE WO IVCON * * *Final Report* * * DATE OF EXAM: Jun 02 2024 12:59PM [place] 0297 - MRI CERVICAL SPINE WO IVCON / PROCEDURE REASON: Neurofibromatosis * * * * Physician Interpretation * * * * EXAMINATION: MRI CERVICAL SPINE WO IVCON CLINICAL HISTORY: Neurofibromatosis TECHNIQUE: Routine cervical spine MR protocol without gadolinium. MQ: [id number] COMPARISON: None. RESULT: Counting reference: Craniocervical junction. Anatomic Variants: None. Please note that lack of intravenous contrast may limits evaluation for small intradural masses. Alignment: Alignment is anatomic. Cord: The visualized cord is within normal limits of signal intensity and morphology. Bone marrow signal/fracture: T1 hyperintense lesion within T3 vertebral body is most compatible with the hemangioma. The visualized vertebral body heights are within normal limits. No acute abnormality involving the osseous structures. Cervical soft tissues: T2 hyperintense subcutaneous lesion posterior to the occipital bone measuring 19 x 10 mm on series 6 image 1. Additional subcutaneous lesion the C5-C6 vertebral level posteriorly measuring 16 x 8 mm. This is best seen on series 6 image 12. Partially imaged nonspecific mastoid fluid. Small bilateral pleural effusions are also partially imaged. Nonspecific pulmonary opacities. C2-C3: Canal and foramina are patent. C3-C4: Canal and foramina are patent. C4-C5: Canal and foramina are patent. C5-C6: Canal and foramina are patent. C6-C7: Canal and foramina are patent. C7-T1: Canal and foramina are patent. IMPRESSION: No evidence of abnormal mass within cervical spinal canal. No evidence of abnormal T2 hyperintense signal within cervical spinal cord. No evidence of significant spinal canal stenosis. Nonspecific subcutaneous lesion posterior to occipital bone and within posterior neck soft tissue at C5-C6 vertebral level. Although nonspecific by imaging, this may be neurofibroma given patient's history. Correlate with physical examination. Partially imaged nonspecific mastoid fluid. Small bilateral pleural effusions are also partially imaged. Nonspecific pulmonary opacities. Anatomic Variant: None. Assume 7 cervical vertebrae with counting from the craniocervical junction. Building Components Designer: [facility] HOSPITALJose Juan Transcribe Date/Time: Jun 02 2024 1:07P Dictated by : MARYBETH PIZARRO MD This examination was interpreted and the report reviewed and electronically signed by: MARYBETH PIZARRO MD on Jun 02 2024 1:25PM EST [id number] Normal [facility] MRI LUMBAR SPINE WO IVCONon 06-02-2024 MRI LUMBAR SPINE WO IVCON * * *Final Report* * * DATE OF EXAM: Jun 02 2024 12:59PM [facility] 0303 - MRI LUMBAR SPINE WO IVCON / PROCEDURE REASON: Neurofibromatosis * * * * Physician Interpretation * * * * EXAMINATION: MRI LUMBAR SPINE WO IVCON CLINICAL HISTORY: Neurofibromatosis TECHNIQUE: Routine lumbosacral spine MR protocol without gadolinium. MQ: [id number] COMPARISON: No previous relevant imaging available for comparison. RESULT: Counting reference: Lumbosacral junction. For the purposes of this report, L4-5 is considered the level of the iliac crest and assume there are 5 lumbar-type vertebrae. Anatomic variant: None. Please note the lack of intravenous contrast limits evaluation of small intradural masses. Alignment: Mildly scoliotic spinal curvature. No significant spondylolisthesis. Bone marrow signal/fracture: No evidence of pathologic marrow infiltration. No evidence of prior fracture. Conus: The conus is within normal limits of signal intensity and morphology. Paraspinal soft tissues: Small scattered subcutaneous lesions within the posterior skin, which are nonspecific by imaging, but may represent a neurofibroma given patient's history. Mild right hydronephrosis may be secondary to gravid uterus. This is not further assessed. Follow-up renal ultrasound may be obtained, as warranted. L1-L2: Canal and foramina are patent. L2-L3: Canal and foramina are patent L3-L4: Intervertebral disc desiccation. No significant neural foraminal stenosis. No significant spinal canal stenosis. L4-L5: Intervertebral disc desiccation with mild broad disc bulge and annular fissure. Mild bilateral facet degenerative changes. No significant neural foraminal stenosis. No significant spinal canal stenosis. L5-S1: Epidural lipomatosis with mild to moderate thecal sac narrowing. No significant disc herniation. Mild bilateral facet degenerative changes. IMPRESSION: No evidence of discrete mass within lumbar spinal canal on this noncontrast examination. No evidence of abnormal signal within conus. The cauda equina appears unremarkable. No significant spinal canal stenosis within lumbar spine. Mild right hydronephrosis may be secondary to gravid uterus. This is not further assessed. Follow-up renal ultrasound may be obtained, as warranted. Small scattered subcutaneous lesions within the posterior skin, which are nonspecific by imaging, but may represent a neurofibroma given patient's history. Gravid uterus is not assessed on this examination. Follow-up ultrasound may be obtained, as warranted. Additional findings, as detailed above. Anatomic Lumbar Variant: None. L4-5 is considered the level of the iliac crest and assume there are 5 lumbar-type vertebrae. Building Components Designer: RYANN Transcribe Date/Time: Jun 02 2024 1:36P Dictated by : MARYBETH PIZARRO MD This examination was interpreted and the report reviewed and electronically signed by: MARYBETH PIZARRO MD on Jun 02 2024 1:47PM EST [id number] Normal [facility] MRI THORACIC SPINE WO IVCONo n 06-02-2024 MRI THORACIC SPINE WO IVCON * * *Final Report* * * DATE OF EXAM: Jun 02 2024 12:59PM [facility] 0325 - MRI THORACIC SPINE WO IVCON / PROCEDURE REASON: Neurofibromatosis * * * * Physician Interpretation * * * * EXAMINATION: MRI THORACIC SPINE WO IVCON CLINICAL HISTORY: Neurofibromatosis TECHNIQUE: Routine thoracic spine MR protocol. MQ: [id number] COMPARISON: None. RESULT: Counting reference: Craniocervical and lumbosacral junctions. For the purposes of this report, L4-5 is considered the level of the iliac crest and assume there are 5 lumbar-type vertebrae. Anatomic variant: None. Please note that lack of intravenous contrast may limits evaluation of small intramural masses. Alignment: Alignment is anatomic. Cord: The visualized cord is within normal limits of signal intensity and morphology. Bone marrow signal/fracture: No evidence of pathologic marrow infiltration. No evidence of prior fracture. Thoracic paraspinal soft tissues: Multiple small subcutaneous lesions within posterior skin throughout thoracic spine. Although nonspecific by imaging alone, this may be subcutaneous neurofibromas given patient's history. Partially imaged bilateral pleural effusions. Nonspecific pulmonary opacities. This is not further assessed on this MRI of thoracic spine. Canal and foramina: The thoracic canal and foramina are patent. IMPRESSION: No evidence of discrete mass within thoracic spinal canal on this noncontrast examination. No evidence of abnormal T2 hyperintense signal within thoracic spinal cord. No evidence of significant spinal canal stenosis within thoracic spine. Multiple small subcutaneous lesions within posterior skin throughout thoracic spine. Although nonspecific by imaging alone, this may be subcutaneous neurofibromas given patient's history. Correlate with physical examination. Partially imaged bilateral pleural effusions. Nonspecific pulmonary opacities. This is not further assessed on this MRI of thoracic spine. Anatomic Thoracic/Lumbar Variant: None. L4-5 is considered the level of the iliac crest and assume there are 5 lumbar-type vertebrae. Building Components Designer: RYANN Transcribe Date/Time: Jun 02 2024 1:25P Dictated by : MARYBETH PIZARRO MD This examination was interpreted and the report reviewed and electronically signed by: MARYBETH PIZARRO MD on Jun 02 2024 1:36PM EST [id number] Normal [facility] OPERATIVE NOon 06-02-2024 OPERATIVE NO HNO ID: [id number] Author: JOCELYN JENNINGS MD Service: Obstetrics Author Type: Resident Type: Operative Report Filed: 06/14/2024 21:08 Note Text: ---- Attestation signed by Jocelyn Jennings MD at 06/14/2024 9:08 PM On 06/02/24, I was present for the entire procedure, directly supervised the residents and was assisted by the resident. I agree with the resident documentation of the operative report and have discussed its contents with the resident. ---- OB OPERATIVE/PROCEDURE REPORT LOG ID: [id number] Surgery/Procedure Date: 06/02/2024 Incision/Procedure Start Time: 3:17 PM Incision Close/Procedure End Time: 3:45 PM Surgeon(s)/Proceddavie souza(s) and Senior Quantity Surveyor(s): Surgeons and Role: * Jocelyn Jennings MD - Primary * Ghada Casiano MD - Resident - Assisting No Additional Staff Informed Consent: Informed Consent obtained and on the chart Procedure: Section Gestational Age at Delivery: 32w0d Reason for Delivery Today: PRIMARY Reason for Delivery : Hypertension Additional Clinical Indicator(s) for delivery: N/A Hypertension Type: Severe Pre/Eclampsia Delivery type: , Low Transverse Intrapartum Complications: Persistent Category 2 Tracing Persistent Category 2 Tracing Indications: Recurrent late decelerations with moderate variability, Minimal variability Delivery between 22w0d - 36w6d?: Yes What was the indication for ?: Medically-indicated (preeclampsia, maternal complications, distress or other complications) Has the patient completed their course of steroids?: Full Course Indications for : Persistent Category 2 Tracing Persistent Category 2 Tracing Indications: Recurrent late decelerations with moderate variability Additional Pre-Op Details (if applicable): Pablo Alarcon is a 28 year old who presented on 05/30 at 31w4d gestation as transfer from outside hospital. Patient's was complicated by chronic hypertension on medications, anxiety and depression, seizures, learning disability, neurofibromatosis, Ebstein anomaly. At outside hospital, patient had isolated severe range blood pressure and received treatment with IV labetalol and was started on magnesium. On admission, she was found to have elevated UPC and met criteria for superimposed pre eclampsia without severe features. She received betamethasone for lung maturity in setting of prematurity. 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 At 32w gestation, she developed chest pain, hypoxia, and difficulty breathing. She was started on oxygen by nasal cannula. Chest XR showed pulmonary edema. Given new chest XR finding of pulmonary edema, patient met criteria for superimposed pre eclampsia with severe features. She was started on magnesium for seizure prophylaxis. She received a dose of IV Lasix. Delivery was recommended. Induction was started with cytotec at 0.5 cm cervical dilation. She developed persistent category II tracing approximately 4 hours after administration of cytotec with recurrent late decelerations. Initial measures including IV fluids and repositioning did not resolve or improve tracing. At 1.5 hours of persistent category II tracing, delivery via primary low transverse delivery was recommended for persistent category II tracing. Given patient's history of neurofibromatosis, patient received MRI of spine without IV contrast during admission which did not show any abnormalities. However, per anesthesia, lack of intravenous contrast limits evaluation of small intradural masses, so general anesthesia was recommended. Plan of care was discussed with patient and her support people and decision was made to proceed with delivery under general anesthesia. Postop Diagnosis: Same as pre-op diagnosis Procedures and Anesthesia: Procedure(s) and Anesthesia Type: * SECTION - Epidural Information for the patient's : Micah Alarcon [[id number]] Type: , Low Transverse Operative Findings: Weight: 1.51 kg (3 lb 5.3 oz) (Filed from Delivery Summary) Sex: male One Minute : 8 Five Minute : 9 Cord Complications: None Additional Findings: Normal uterus, Normal tubes, and Normal ovaries TECHNIQUE: The patient was taken to the operating room. She was placed in supine position with a left tilt. SCD's were placed. Christensen catheter was already placed under sterile conditions. She was prepped and draped in the usual sterile fashion for abdominal surgery. where general anesthesia was induced and (more content not included)... Normal [facility] SURGICAL PATHOLOGYon CASE REPORT [facility] Comment on above: Order Comment: Speci men Type: TISSUE SPECIMEN Ordering Facility: [facility] Address: [address] [place] [address] Result Comment: Surg [facility] Pathology Report Case: [id number] Authorizing Provider: Abelardo Hidalgo MD Collected: 06/02/2024 04:38 PM Ordering Location: [address] Received: 06/03/2024 12:08 PM Pathologist: Melani Merrill MD Specimen: Placenta, Single Performed By: #### S #### [facility] CLIA [id number] [address] [place] [address] [place] CLINICAL HISTORY Severe pre e; complicated by chronic hypertension on medications, anxiety and depression, seizures, learning disability, neurofibromatosis, Ebstein anomaly Normal [facility] Comment on above: Order Comment: Speci men Type: TISSUE SPECIMEN Ordering Facility: [facility] Address: [address] [place] [address] Performed By: #### S #### [facility] CLIA [id number] [address] [place] [address] [place] DIAGNOSIS COMMENT Normal [facility] Comment on above: Order Comment: Speci men Type: TISSUE SPECIMEN Ordering Facility: [facility] Address: [address] [place] [address] Result Comment: The birthweight to placental weight ratio is significantly elevated at 8.0. The expected mean ratio at this gestational age is 5.9. can be considered a cardiovascular stress test. There is an evolving literature to suggest preeclampsia with early onset growth restriction and changes of maternal vascular malperfusion in the placenta identify women at increased risk for cardiovascular disease. Care should be taken to optimize cardiovascular maternal health as clinically appropriate with attention to exercise and primary care. Ref: Vivian WT, Neftali JM. The Placenta as a Window to Maternal Vascular Health. Obstet Gynecol Clin [place]. 2019;47(1):17-28. PMID: [id number]. Performed By: #### S #### [facility] CLIA [id number] [address] [place] [address] FINAL DIAGNOSIS Normal [facility] Comment on above: Order Comment: Marisa mckeon Type: TISSUE SPECIMEN Ordering Facility: [facility] Address: [address] [place] [address] Result Comment: Matthew casper, 32 weeks gestation, section: - Formalin fixed placenta weight 188 g, very small for gestational age (much less than 3rd percentile) - Changes of severe maternal vascular malperfusion - Accelerated villous maturation for age - Multiple infarcts - Decidual arteriopathy [facility] 06/09/2023 Performed By: #### S #### [facility] CLIA [id number] [address] [place] [address] FINAL PERFORMING LAB Normal [facility] Comment on above: Order Comment: Marisa mckeon Type: TISSUE SPECIMEN Ordering Facility: [facility] Address: [address] [place] [address] Result Comment: Diag nostic interpretation performed at [facility], [address] [place] [address] CLIA# [id number] Parachute Marker: Shin Landis M.D. Performed By: #### S #### [facility] CLIA [id number] [address] [place] [address] [place] GROSS DESCRIPTION Normal [facility] Comment on above: Order Comment: Speci men Type: TISSUE SPECIMEN Ordering Facility: [facility] Address: [address] [place] [address] Result Comment: Matthew casper, Single Received in formalin labeled placenta single is a single placental disc with attached umbilical cord and membranes. The white cord measures 11.3 cm in length and 1.4 cm in maximum diameter. It shows 3 coils. It inserts centrally. On cross-section it displays 3 vessels. The mukherjee glistening membranes attach normally at the disc. The area of membrane rupture is at the closest placental margin. The irregular shaped trimmed placental disc weighs 188 g and measures 14.9 x 11.6 x 2.4 cm. The surface is purple with normal dispersion of chorionic plate vessels. The maternal surface is intact. Sectioning through the placental disc at 1 cm intervals reveals spongy dark red parenchyma. Multiple mukherjee firm areas are identified ranging in size from 0.5 to 5.5 cm in greatest dimension. The mukherjee firm areas are located in the central two thirds of the disc and at the periphery. The mukherjee lesions involve approximately 20% of the parenchyma. Division Head sections are submitted as follows: A1 umbilical cord, end and 2 membrane rolls A2 umbilical cord placental end and chorionic plate section near cord insertion A3-A4 central placenta full-thickness sections A5 wedge sections A6-A8 promotional representative sections of mukherjee lesions from central portion of disc A9-A10 promotional representative section of mukherjee lesions from peripheral portion of disc Gross examination performed at [facility], [address] [place] [address] KVB June 03, 2024 2:03 PM Performed By: #### S #### [facility] CLIA [id number] [address] [place] [address] [place] MICROSCOPIC DESCRIPTION Normal [facility] Comment on above: Order Comment: Speci men Type: TISSUE SPECIMEN Ordering Facility: [facility] Address: [address] [place] [address] Result Comment: Umbi lical cord: 3 vessels, no abnormalities membranes: Chorionic trophoblast with microcysts Membranous decidua: No abnormalities Chorionic plate: No abnormalities Chorionic plate vasculature: No abnormalities Stem villi: No abnormalities Terminal villi: Accelerated villous maturation for age (increased proportion of mature terminal villi, increased syncytial knotting, small-caliber, increased fibrinoid necrosis); multiple infarcts, remote (A6, A7 x 2, A8, A9) and subacute (A10) Intervillous space: Moderate multifocal increase in perivillous fibrinoid Basal plate/decidua basalis: Decidual arteriopathy (partial persistence of vascular smooth muscle in spiral arteries; fibrinoid necrosis); basal plate plaque, focal Performed By: #### S #### [facility] CLIA [id number] [address] [place], [place] [address] [place] [address] [place] XR CHEST 1V FRONTALon 2023 XR CHEST 1V FRONTAL * * *Final Report* * * DATE OF EXAM: Jun 02 2024 6:15AM [id number] [id number] - XR CHEST 1V FRONTAL / PROCEDURE REASON: Shortness of breath * * * * Physician Interpretation * * * * EXAMINATION: CHEST RADIOGRAPH (SINGLE VIEW AP OR PA) CLINICAL HISTORY: Shortness of breath MQ: XC1_5 Comparison: None. RESULT: Lines, tubes, and devices: None. Lungs and pleura: Diffuse pulmonary vascular congestion and mild pulmonary edema. No consolidation. No lung mass. No pleural effusion. Cardiomediastinal silhouette: Normal cardiomediastinal silhouette. Other: No other concerning osseous or soft tissue abnormality. IMPRESSION: See result. Building Components Designer: PSCB Transcribe Date/Time: Jun 02 2024 6:16A Dictated by : HUMBLE RINCON MD This examination was interpreted and the report reviewed and electronically signed by: HUMBLE RINCON MD on Jun 02 2024 6:18AM EST [id number] Normal [facility] CBC panel Auto (Bld)on 06-01 Erythrocyte distribution width (RBC) [Ratio] 14.4 % Normal 11.5-15.0 [facility] Comment on above: Order Comment: Speci men Type: BLOOD SPECIMENOrdering Facility: [facility] Address: [address] [place] [address] Performed By: #### 5 8410-2 ####[facility][1] LABORATORYCLIA [id number] [address] OF [facility] Hematocrit (Bld) [Volume fraction] 27.7 % Low 36.0-46.0 [facility] Comment on above: Order Comment: Speci men Type: BLOOD SPECIMENOrdering Facility: [facility] Address: [address] [place] [address] Performed By: #### 5 8410-2 ####[facility][1] LABORATORYCLIA [id number] [address] OF [facility] Hemoglobin (Bld) [Mass/Vol] 8.7 g/dL Low 11.5-15.5 [facility] Comment on above: Order Comment: Speci men Type: BLOOD SPECIMENOrdering Facility: [facility] Address: [address] [place] [address] Performed By: #### 5 8410-2 ####[facility][1] LABORATORYCLIA [id number] [address] MCH (RBC) [Entitic mass] 25.2 pg Low 26.0-34.0 [facility] Comment on above: Order Comment: Speci men Type: BLOOD SPECIMENOrdering Facility: [facility] Address: [address] [place] [address] Performed By: #### 5 8410-2 ####[facility][1] LABORATORYCLIA [id number] [address] [place] MCHC (RBC) [Mass/Vol] 31.4 g/dL Normal 30.5-36.0 [facility] Comment on above: Order Comment: Speci men Type: BLOOD SPECIMENOrdering Facility: [facility] Address: [address] [place] [address] Performed By: #### 5 8410-2 ####[facility][1] LABORATORYCLIA [id number] [address] OF [facility] MCV (RBC) [Entitic vol] 80.3 fL Normal 80.0-100.0 [facility] Comment on above: Order Comment: Speci men Type: BLOOD SPECIMENOrdering Facility: [facility] Address: [address] [place] [address] Performed By: #### 5 8410-2 ####[facility][1] LABORATORYCLIA [id number] [address] Nucleated RBC (Bld) [#/Vol] 10*3/uL Normal <0.01 [facility] Comment on above: Order Comment: Speci men Type: BLOOD SPECIMENOrdering Facility: [facility] Address: [address] [place] [address] Performed By: #### 5 8410-2 ####[facility][1] LABORATORYCLIA [id number] [address] [place] Platelet mean volume (Bld) [Entitic vol] 11.9 fL Normal 9.0-12.7 [facility] Comment on above: Order Comment: Speci men Type: BLOOD SPECIMENOrdering Facility: [facility] Address: [address] [place] [address] Performed By: #### 5 8410-2 ####[facility][1] LABORATORYCLIA [id number] [address] [place] Platelets (Bld) [#/Vol] 250 10*3/uL Normal 150-400 [facility] Comment on above: Order Comment: Speci men Type: BLOOD SPECIMENOrdering Facility: [facility] Address: [address] [place] [address] Performed By: #### 5 8410-2 ####[facility][1] LABORATORYCLIA [id number] [address] [place] RBC (Bld) [#/Vol] 3.45 10*6/uL Low 3.90-5.20 [facility] Comment on above: Order Comment: Speci men Type: BLOOD SPECIMENOrdering Facility: [facility] Address: [address] [place] [address] Performed By: #### 5 8410-2 ####[facility][1] LABORATORYCLIA [id number] [place] [address] [place] WBC (Bld) [#/Vol] 25.27 10*3/uL High 3.70-11.00 [facility] Comment on above: Order Comment: Speci men Type: BLOOD SPECIMENOrdering Facility: [facility] Address: [address] [place] [id number] Performed By: #### 5 8410-2 ####[facility][1] LABORATORYCLIA [id number] [place] [address] [facility] CNDSon 06-01-2024 CNDS HNO ID: [id number] Author: JONATHAN MANUEL MD Service: Maternal Medicine Author Type: Physician Type: Discharge Summary Filed: 06/01/2024 11:03 Note Text: DISCHARGE NOTE (Patient Admitted Less than 48 Hours) SERVICE DATE: 06/01/2024 SERVICE TIME: 9:05 AM ADMISSION DATE: 05/30/2024 Pablo Alarcon is a 28 year old who presented on 05/30 at 31w4d gestation as transfer. Patient's was complicated by chronic hypertension on medications, anxiety and depression, seizures, learning disability, neurofibromatosis, Ebstein anomaly. At outside hospital, patient had isolated severe range blood pressure and received treatment with IV labetalol and was started on magnesium. On admission, she was found to have elevated UPC and met criteria for superimposed pre eclampsia without severe features. She had headache on admission that improved with medications. She received betamethasone for lung maturity. She remained normotensive throughout her admission. She was discharged home in stable condition at 31w6d for superimposed pre eclampsia without severe features. She was discharged home with instructions to continue labetalol 600 mg three times daily and Procardia XL 60 mg twice daily. She has follow up scheduled with her primary OB. DISCHARGE DISPOSITION: Home with Self Care DIET: Regular ACTIVITY AFTER DISCHARGE: Resume pre-hospital activity FOLLOW UP CARE REQUIRED: Future Appointments Date Time Provider Department Center 06/02/2024 9:00 AM I TECH 1 SMOKING PIPE LINER MFM [facility] M[facility] [place] 06/05/2024 9:00 AM Viraj Morales MD [facility] [place] 06/09/2024 9:00 AM SMOKING PIPE LINER MFM W[facility] MOB US [facility] [place] 06/09/2024 9:30 AM Viola Somers MD [facility] DISCHARGE MEDICATIONS: Medication List CONTINUE taking these medications aspirin, enteric coated 81 mg EC tablet Commonly known as: ASPIRIN, ENTERIC COATED Take 1 tablet by mouth once daily. famotidine 20 mg tablet Commonly known as: PEPCID AC Take 1 tablet by mouth two times a day. FLONASE 50 mcg/actuation nasal spray Generic drug: fluticasone folic acid 1 mg tablet Take 3 tablets by mouth once daily. KEPPRA 500 mg tablet Generic drug: levETIRAcetam labetalol 300 mg tablet Commonly known as: TRANDATE Take 2 tablets by mouth three times a day. NIFEdipine XL 60 mg 24 hr tablet Commonly known as: ADALAT CC Take 1 tablet by mouth two times a day. RIGHT STEP VITAMINS ORAL sertraline 50 mg tablet Commonly known as: ZOLOFT Where to Get Your Medications These medications were sent to [facility] - [place] [address] - [address] - [phone] [address] [place] [address] labetalol 300 mg tablet NIFEdipine XL 60 mg 24 hr tablet FINAL DIAGNOSIS: Active Hospital Problems as of 06/01/2024 Noted - Resolved [facility] Neurofibromatosis, type 1 (von Recklinghausen's disease) (HCC) 02/26/2006 - Present Yes Learning disability Unknown - Present Yes History of seizures 04/24/2024 - Present Yes History of nicotine vaping 04/24/2024 - Present Yes Anxiety and depression 04/24/2024 - Present Yes Arnold-Chiari malformation (HCC) 04/29/2024 - Present Yes cardiac anomaly complicating , antepartum 05/26/2024 - Present Yes Rubella non-immune status, antepartum 05/26/2024 - Present Yes * (Principal) Chronic hypertension with superimposed preeclampsia 05/30/2024 - Present Yes Leukocytosis 05/30/2024 - Present Unknown Asthma 05/30/2024 - Present Yes Prematurity 05/30/2024 - Present Yes SIGNATURE: Ghada Casiano MD PATIENT NAME: Pablo Alarcon DATE: June 01, 2024 TIME: 9:05 AM I reviewed the hospital course and agree. Normal [facility] Kenneth 06-01-2024 GARCIAN Telephone (SHIRA) ---- PABLO ALARCON ([id number]) 1995 F T Date Time Provider Department 06/01/24 KAYKAYMARCYIron SILVA During your visit today, we recorded the following information about you: Lashell Mccracken [facility] 06/01/2024 9:54 AM Signed I attempted to reach Ms. Alarcon this morning to review her NEGATIVE MaterniT Genome Results. Her phone went straight to [employer] and I left her a good news message. A [employer] message will be sent along with a copy of her result. In addition, I have obtained a copy of her NF1 genetic test results and will send her a copy for her records. Will speak with the Medical Genetics team regarding their recommendation for testing the baby after . Lashell Kaykay, , [facility] [place] Licensed Genetic Counselor [phone] Allergies As of Date: 06/01/2024 Noted Allergy Reaction DEXTROAMPHETAMINE 05/15/2024 1 - Mental Status Change Comments: Per patient - hallucinations GABAPENTIN 04/24/2024 2 - Rash SEASONAL ALLERGIES 12/12/2017 3 - Cough Date Reviewed: 05/30/2024 Reviewed by: Annel Meeks, RN - Fully Assessed Reason for Visit: Results [95] Cmt: MaterniT Genome Results Prescriptions as of 06/02/2024 - labetalol (TRANDATE) 300 mg tablet Take 2 tablets by mouth three times a day. - NIFEdipine XL (ADALAT CC) 60 mg 24 hr tablet Take 1 tablet by mouth two times a day. - aspirin, enteric coated (ASPIRIN, ENTERIC COATED) 81 mg EC tablet Take 1 tablet by mouth once daily. - famotidine (PEPCID AC) 20 mg tablet Take 1 tablet by mouth two times a day. - folic acid 1 mg tablet Take 3 tablets by mouth once daily. - sertraline (ZOLOFT) 50 mg tablet Take 50 mg by mouth once daily. Patient taking as needed because it makes her nauseated when she does take it - vit/iron fum/folic ac (RIGHT STEP VITAMINS ORAL) Take by mouth. Gummy - levETIRAcetam (KEPPRA) 500 mg tablet Take 1,000 mg by mouth two times a day. - fluticasone (FLONASE) 50 mcg/actuation nasal spray Use 1 [place] in each nostril once daily. Facility-Administer ed Medications as of 06/02/2024 - magnesium sulfate 20 gram/500mL iv - calcium gluconate 1 g injection - sodium chloride 0.65 % 2 [place] - oxymetazoline 0.05 % 2 [place] (GENASAL) - levETIRAcetam 1,000 mg CUP (KEPPRA) - diphenhydrAMINE 25 mg injection (BENADRYL) - metoclopramide HCl 10 mg injection (REGLAN) - famotidine 20 mg tab(s) (PEPCID) - labetalol 600 mg tab(s) (TRANDATE) - aspirin, enteric coated 81 mg tab(s) - NIFEdipine ER 60 mg tab(S) (PROCARDIA XL) - acetaminophen 1,000 mg tab(s) (TYLENOL) - sodium citrate-citric acid 500-334 mg/5 mL 30 mL oral liquid (BICITRA) - metoclopramide HCl 10 mg injection (REGLAN) - NaCl 0.9% iv flush bag - calcium carbonate 1,000 mg chewable tab(s) (TUMS) - vitamin with folic acid 1 mg 1 tablet - ondansetron (PF) 4 mg injection (ZOFRAN) - acetaminophen 1,000 mg tab(s) (TYLENOL) - ceFAZolin iv piggyback 2 g in D5W (iso-osmotic) 100 mL (ANCEF) - azithromycin 500 mg in D5W 250 mL Vial-Bag (ZITHROMAX) Problem List As Of Date 06/01/2024 Noted Resolved Dislocation of Elbow [832] 10/11/2003 02/21/2010 IDIOPATHIC SCOLIOSIS [M41.20] 01/30/2005 Neurofibromatosis, type 1 (von Recklinghausen's* MIGRAINE NOS W/O MENTN INTRACTABLE [G43.909] 02/26/2006 BRAIN NEOPLASM NOS [D49.6] 10/14/2007 Dislocated Elbow [S53.106A] 02/21/2010 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] Learning disability [F81.9] Adjustment disorder [F43.20] 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 Chronic hypertension affecting [O10.9*04/24/2024 History of seizures [Z87.898] 04/24/2024 History of nicotine vaping [Z87.891] 04/24/2024 Anxiety and depression [F41.9, F32.A] 04/24/2024 History of miscarriage [Z87.59] 04/29/2024 Supervision of other high risk pregnancies, sec*04/29/2024 Arnold-Chiari malformation (HCC) [Q07.00] 04/29/2024 Poor historian [Z78.9] 04/29/2024 Abnormal ultrasound [O28.3] 05/12/2024 abnormality affecting management of mothe*05/18/2024 cardiac anomaly complicating , a*05/26/2024 Rubella non-immune status, antepartum [O09.899,* Chronic hypertension with superimposed pre-ecla*05/30/2024 Leukocytosis [D72.829] 05/30/2024 Asthma [J45.909] 05/30/2024 Prematurity [P07.30] 05/30/2024 Encounter Status:Closed by LASHELL MCCRACKEN on 06/01/24 [facility] CONSULTon 06-01-2024 CONSULT HNO ID: [id number] Author: LYNDA LUCAS MD Service: Neonatology Author Type: Physician Type: Consults Filed: 06/01/2024 15:34 Note Text: NEONATOLOGY CONSULT SERVICE DATE: 06/01/2024 Admission Date: 05/30/2024 SERVICE TIME: 3:30 pm Date of : 1995 Age: [age] year old Sex: female Primary Care Physician: Tomsá Dickey MD Consulting Contour Sander: Lynda Lucas MD Subjective Consultation for this evaluation was requested by Commercial Leasing Manager. Reason for consultation: threatened premature delivery due to hypertemnsion Recommendations will be communicated back to the requesting physician by way of shared medical record or letter. Objective MATERNAL HISTORY: Mother is a 28 year old female, , who is at 31w6d with an JOE of 07/28/2024, by Ultrasound dating method. LMP: Patient's last menstrual period was 10/22/2023 (approximate). Maternal Hospital Problems: ACTIVE PROBLEM LIST Scoliosis (And Kyphoscoliosis), Idiopathic Neurofibromatosis, Type 1 (Von Recklinghausen's Disease) (Hcc) Migraine, Unspecified, Without Mention of Intractable Migraine Without Mention of Status Migrainosus Neoplasm of Unspecified Nature of Brain Dislocated Elbow Elbow Deformity Learning Disability Adjustment Disorder Glioma of Intraocular Optic Nerve (Hcc) Chronic Hypertension Affecting History of Seizures History of Nicotine Vaping Anxiety and Depression History of Miscarriage Supervision of Other High Risk Pregnancies, Second Trimester Arnold-Chiari Malformation (Hcc) Poor Historian Abnormal Ultrasound Abnormality Affecting Management of Mother Cardiac Anomaly Complicating , Antepartum Rubella Non-Immune Status, Antepartum Chronic Hypertension With Superimposed Pre-Eclampsia Leukocytosis Asthma Prematurity Maternal Meds: No current facility-administer ed medications on file prior to encounter. Current Outpatient Medications on File Prior to Encounter Medication Sig aspirin, enteric coated (ASPIRIN, ENTERIC COATED) 81 mg EC tablet Take 1 tablet by mouth once daily. sertraline (ZOLOFT) 50 mg tablet Take 50 mg by mouth once daily. Patient taking as needed because it makes her nauseated when she does take it levETIRAcetam (KEPPRA) 500 mg tablet Take 1,000 mg by mouth two times a day. famotidine (PEPCID AC) 20 mg tablet Take 1 tablet by mouth two times a day. folic acid 1 mg tablet Take 3 tablets by mouth once daily. vit/iron fum/folic ac (RIGHT STEP VITAMINS ORAL) Take by mouth. Gummy fluticasone (FLONASE) 50 mcg/actuation nasal spray Use 1 [place] in each nostril once daily. Current Facility-Administer ed Medications Medication Dose Route Frequency labetalol 600 mg tab(s) (TRANDATE) 600 mg ORAL TID aspirin, enteric coated 81 mg tab(s) 81 mg ORAL DAILY NIFEdipine ER 60 mg tab(S) (PROCARDIA XL) 60 mg ORAL BID acetaminophen 1,000 mg tab(s) (TYLENOL) 1,000 mg ORAL Pre-Op PRN sodium citrate-citric acid 500-334 mg/5 mL 30 mL oral liquid (BICITRA) 30 mL ORAL Pre-Op PRN metoclopramide HCl 10 mg injection (REGLAN) 10 mg INTRAVENOUS Pre-Op PRN NaCl 0.9% iv flush bag 20 mL INTRAVENOUS PRN calcium carbonate 1,000 mg chewable tab(s) (TUMS) 1,000 mg ORAL TID PRN vitamin with folic acid 1 mg 1 tablet 1 tablet ORAL DAILY ondansetron (PF) 4 mg injection (ZOFRAN) 4 mg INTRAVENOUS q 6 H PRN acetaminophen 1,000 mg tab(s) (TYLENOL) 1,000 mg ORAL q 6 H PRN ceFAZolin iv piggyback 2 g in D5W (iso-osmotic) 100 mL (ANCEF) 2 g INTRAVENOUS Pre-Op PRN azithromycin 500 mg in D5W 250 mL Vial-Bag (ZITHROMAX) 500 mg INTRAVENOUS Pre-Op PRN levETIRAcetam 1,000 mg CUP (KEPPRA) 1,000 mg ORAL DAILY (8 PM) diphenhydrAMINE 25 mg injection (BENADRYL) 25 mg INTRAVENOUS q 6 H PRN metoclopramide HCl 10 mg injection (REGLAN) 10 mg INTRAVENOUS q 6 H PRN famotidine 20 mg tab(s) (PEPCID) 20 mg ORAL BID complications: Hypertension, cardiac anomalies The following was discussed with mother GENERAL: Neonatology presence and role at delivery: Yes Possible need for resuscitation: Yes DNR status: Full resuscitation requested Need for admission to NICU: Yes Offered tour of NICU: No Discharge criteria: Yes Survival odds/morbidity AND mortality: Yes RESPIRATORY Risk of RDS/breathing problems: Yes Possible need for respiratory support: Yes CARDIOVASCULAR Discussed Hypotension, potential medical treatment: Yes Other (e.g. congenital heart disease): Yes NEUROLOGIC Risk of IVH/Neuro developmental delays: No Discussed need for evaluation by Security Rover for ROP: No Discussed risk for hearing deficit: No FEN Mother?s Preference: Breast: No. Benefits of breast milk: No Bottle: No Need for supplemental nutrition and/or IVFs: Yes INFECTION Risk factors for infection- congenital and nosocomial: Yes Need to start antibiotics: Yes HEME Possible need for blood transfusion: Yes. (more content not included)... Normal [facility] Comprehensive metabolic 2000 panelon 06-01-2024 Albumin [Mass/Vol] 3.6 g/dL Low 3.9-4.9 [facility] Comment on above: Order Comment: Speci men Type: BLOOD SPECIMENOrdering Facility: [facility] Address: [address] [place] [address] Performed By: #### 2 4323-8 ####[facility][1] LABORATORYCLIA [id number] [address] OF [facility] ALP [Catalytic activity/Vol] 115 U/L Normal 34-123 [facility] Comment on above: Order Comment: Speci men Type: BLOOD SPECIMENOrdering Facility: [facility] Address: [address] [place] [address] Performed By: #### 2 4323-8 ####[facility][1] LABORATORYCLIA [id number] [address] STATES [facility] ALT With P-5'-P [Catalytic activity/Vol] 17 U/L Normal 7-38 [facility] Comment on above: Order Comment: Speci men Type: BLOOD SPECIMENOrdering Facility: [facility] Address: [address] [place] [address] Performed By: #### 2 4323-8 ####[facility][1] LABORATORYCLIA [id number] [address] Anion gap [Moles/Vol] 12 mmol/L Normal 8-15 [facility] Comment on above: Order Comment: Speci men Type: BLOOD SPECIMENOrdering Facility: [facility] Address: [address] [place] [address] Performed By: #### 2 4323-8 ####[facility][1] LABORATORYCLIA [id number] [address] STATES [place] AST With P-5'-P [Catalytic activity/Vol] 20 U/L Normal 13-35 [facility] Comment on above: Order Comment: Speci men Type: BLOOD SPECIMENOrdering Facility: [facility] Address: [address] [place] [address] Performed By: #### 2 4323-8 ####[facility]ORATORYCLIA [id number] [place] [address] [place] Bilirubin [Mass/Vol] mg/dL Low 0.2-1.3 [facility] Comment on above: Order Comment: Speci men Type: BLOOD SPECIMENOrdering Facility: [facility] Address: [address] [place] [address] Performed By: #### 2 4323-8 ####[facility] LABORATORYCLIA [id number] [place] [address] [place] Calcium [Mass/Vol] 9.1 mg/dL Normal 8.5-10.2 [facility] Comment on above: Order Comment: Speci men Type: BLOOD SPECIMENOrdering Facility: [facility] Address: [address] [place] [address] Performed By: #### 2 4323-8 ####[facility][1] LABORATORYCLIA [id number] [place] [address] [place] Chloride [Moles/Vol] 100 mmol/L Normal 98-107 [facility] Comment on above: Order Comment: Speci men Type: BLOOD SPECIMENOrdering Facility: [facility] Address: [address] [place] [address] Performed By: #### 2 4323-8 ####[facility] LABORATORYCLIA [id number] [place] [address] [place] CO2 [Moles/Vol] 20 mmol/L Low 22-30 [facility] Comment on above: Order Comment: Speci men Type: BLOOD SPECIMENOrdering Facility: [facility] Address: [address] [place] [address] Performed By: #### 2 4323-8 ####[facility] LABORATORYCLIA [id number] [address] [place] Creatinine [Mass/Vol] 0.95 mg/dL Normal 0.58-0.96 [facility] Comment on above: Order Comment: Speci men Type: BLOOD SPECIMENOrdering Facility: [facility] Address: [address] [place] [address] Performed By: #### 2 4323-8 ####[facility] CARMELCLIA [id number] [place] [id number] [place] Creatinine and Glomerular filtration rate.predicted panel (S/P/Bld) 84 mL/min/1.73m??? Normal >=60 [facility] Comment on above: Order Comment: Marisa mckeon Type: BLOOD SPECIMENOrdering Facility: [facility] Address: [address] [place] [address] Result Comment: Shannon mated Glomerular Filtration Rate (eGFR) is calculated using the 2020 CKD-EPI creatinine equation. This equation utilizes serum creatinine, sex, and age as parameters. The creatinine assay has traceable calibration to isotope dilution-mass spectrometry. Refer to KDIGO guidelines for clinical interpretation. In patients with unstable renal function, e.g. those with acute kidney injury, the eGFR may not accurately reflect actual GFR. Performed By: #### 2 4323-8 ####[facility] RANDALLIAIA [id number] [place] [id number] [place] Glucose [Mass/Vol] 127 mg/dL High 74-99 [facility] Comment on above: Order Comment: Marisa mckeon Type: BLOOD SPECIMENOrdering Facility: [facility] Address: [address] [place] [address] Result Comment: The [place] Diabetes Association (ADA) provides guidance for cutoff values for fasting glucose and random glucose. The ADA defines fasting as no caloric intake for at least 8 hours. Fasting plasma glucose results between 100 to 125 [...] Standards of Medical Care in Diabetes 2016, [place] Diabetes Association. Diabetes Care. 2016.39(Suppl 1). Performed By: #### 2 4323-8 ####[facility][1] LABORATORYCLIA [id number] [address] STATES OF [facility] Potassium [Moles/Vol] 3.9 mmol/L Normal 3.7-5.1 [facility] Comment on above: Order Comment: Speci men Type: BLOOD SPECIMENOrdering Facility: [facility] Address: [address] [place] [address] Performed By: #### 2 4323-8 ####[facility][1] LABORATORYCLIA [id number] [place] [address] [place] Protein [Mass/Vol] 6.2 g/dL Low 6.3-8.0 [facility] Comment on above: Order Comment: Speci men Type: BLOOD SPECIMENOrdering Facility: [facility] Address: [address] [place] [address] Performed By: #### 2 4323-8 ####[facility][1] LABORATORYCLIA [id number] [address] STATES [facility] Sodium [Moles/Vol] 132 mmol/L Low 136-144 [facility] Comment on above: Order Comment: Speci men Type: BLOOD SPECIMENOrdering Facility: [facility] Address: [address] [place] [address] Performed By: #### 2 4323-8 ####[facility][1] LABORATORYCLIA [id number] [address] STATES [facility] Urea nitrogen [Mass/Vol] 20 mg/dL Normal 7-21 [facility] Comment on above: Order Comment: Speci men Type: BLOOD SPECIMENOrdering Facility: [facility] Address: [address] [place] [address] Performed By: #### 2 4323-8 ####[facility][1] LABORATORYCLIA [id number] [address] [place] Bacteria Ur Culton 4 Bacteria identified Cx Nom (U) CULTURE, URINE: No growth (<1,000 CFU/ml) Normal [facility] Comment on above: Performed By: #### 6 30-4 ####[facility][1] LABORATORYCLIA [id number] [address] CBC panel Auto (Bld)on 05-31 Erythrocyte distribution width (RBC) [Ratio] 14.5 % Normal 11.5-15.0 [facility] Comment on above: Order Comment: Speci men Type: BLOOD SPECIMENOrdering Facility: [facility] Address: [address] [place] [address] Performed By: #### 5 8410-2 ####[facility][1] LABORATORYCLIA [id number] [address] Hematocrit (Bld) [Volume fraction] 30.0 % Low 36.0-46.0 [facility] Comment on above: Order Comment: Speci men Type: BLOOD SPECIMENOrdering Facility: [facility] Address: [address] [place] [address] Performed By: #### 5 8410-2 ####[facility][1] LABORATORYCLIA [id number] [address] Hemoglobin (Bld) [Mass/Vol] 9.5 g/dL Low 11.5-15.5 [facility] Comment on above: Order Comment: Speci men Type: BLOOD SPECIMENOrdering Facility: [facility] Address: [address] [place] [address] Performed By: #### 5 8410-2 ####[facility][1] LABORATORYCLIA [id number] [address] MCH (RBC) [Entitic mass] 25.1 pg Low 26.0-34.0 [facility] Comment on above: Order Comment: Speci men Type: BLOOD SPECIMENOrdering Facility: [facility] Address: [address] [place] [address] Performed By: #### 5 8410-2 ####[facility][1] LABORATORYCLIA [id number] [address] MCHC (RBC) [Mass/Vol] 31.7 g/dL Normal 30.5-36.0 [facility] Comment on above: Order Comment: Speci men Type: BLOOD SPECIMENOrdering Facility: [facility] Address: [address] [place] [address] Performed By: #### 5 8410-2 ####[facility][1] LABORATORYCLIA [id number] [address] MCV (RBC) [Entitic vol] 79.4 fL Low 80.0-100.0 [facility] Comment on above: Order Comment: Speci men Type: BLOOD SPECIMENOrdering Facility: [facility] Address: [address] [place] [address] Performed By: #### 5 8410-2 ####[facility][1] LABORATORYCLIA [id number] [address] Nucleated RBC (Bld) [#/Vol] 10*3/uL Normal <0.01 [facility] Comment on above: Order Comment: Speci men Type: BLOOD SPECIMENOrdering Facility: [facility] Address: [address] [place] [address] Performed By: #### 5 8410-2 ####[facility][1] LABORATORYCLIA [id number] [address] Platelet mean volume (Bld) [Entitic vol] 11.7 fL Normal 9.0-12.7 [facility] Comment on above: Order Comment: Speci men Type: BLOOD SPECIMENOrdering Facility: [facility] Address: [address] [place] [address] Performed By: #### 5 8410-2 ####[facility][1] LABORATORYCLIA [id number] [address] Platelets (Bld) [#/Vol] 283 10*3/uL Normal 150-400 [facility] Comment on above: Order Comment: Speci men Type: BLOOD SPECIMENOrdering Facility: [facility] Address: [address] [place] [address] Performed By: #### 5 8410-2 ####[facility][1] LABORATORYCLIA [id number] [address] [place] RBC (Bld) [#/Vol] 3.78 10*6/uL Low 3.90-5.20 [facility] Comment on above: Order Comment: Speci men Type: BLOOD SPECIMENOrdering Facility: [facility] Address: [address] [place] [address] Performed By: #### 5 8410-2 ####[facility][1] LABORATORYCLIA [id number] [place] [address] [place] WBC (Bld) [#/Vol] 27.22 10*3/uL High 3.70-11.00 [facility] Comment on above: Order Comment: Speci men Type: BLOOD SPECIMENOrdering Facility: [facility] Address: [address] [place] [address] Performed By: #### 5 8410-2 ####[facility][1] LABORATORYCLIA [id number] [address] NURSING PROGon 05-31-2024 NURSING PROG HNO ID: [id number] Author: RONDA DURANT RN Service: Nursing Author Type: Registered Nurse Type: Nursing Progress Note Filed: 05/31/2024 23:12 Note Text: Other: Patient states she has a headache again, at this point she wants to try to sleep it off without any medication. Call light within reach. Will continue to monitor. Normal [facility] Prot 24h Ur-mRateon 05-31-20 24 Protein (24H U) [Mass/Time] 0.15 g/24 Hr High <0.15 [facility] Comment on above: Order Comment: Speci men Type: URINE SPECIMENOrdering Facility: [facility] Address: [address] [place] [address] Result Comment: Adul t Proteinuria Categories: <0.15 g/24 hours is considered normal to mildly increased 0.15 - 0.50 g/24 hours is considered moderately increased >0.50 g/24 hours is considered severely increased KDIGO. (2013). KDIGO 2012 Clinical Practice Guideline for the Evaluation and Management of Chronic Kidney Disease. Official Journal of the International Society of Nephrology, 3(1), 1-150. Performed By: #### 2 889-4 ####[facility][1] LABORATORYCLIA [id number] [address] Protein (24H U) [Mass/Time]o n 05-31-2024 PERIOD (HRS) 24 hr Normal [facility] Comment on above: Order Comment: Speci men Type: URINE SPECIMENOrdering Facility: [facility] Address: [address] [place] [address] Performed By: #### 2 889-4 ####[facility][1] LABORATORYCLIA [id number] [address] Specimen volume (24H U) 0.8 L Normal A [facility] Comment on above: Order Comment: Speci men Type: URINE SPECIMENOrdering Facility: [facility] Address: [address] [place] [address] Performed By: #### 2 889-4 ####[facility][1] LABORATORYCLIA [id number] [address] URINALYSIS, REFLEX MICROSCOP ICon 05-31-2024 Bilirubin Ql (U) Negative Normal Negative [facility] Comment on above: Order Comment: Speci men Type: URINE SPECIMENOrdering Facility: [facility] Address: [address] [place] [address] Performed By: #### L [id number] ####[facility][1] LABORATORYCLIA [id number] [address] Clarity (Unsp spec) Clear Normal Clear [facility] Comment on above: Order Comment: Speci men Type: URINE SPECIMENOrdering Facility: [facility] Address: [address] [place] [address] Performed By: #### L [id number] ####[facility][1] LABORATORYCLIA [id number] [address] Color (U) Light Yellow Normal yellow [facility] Comment on above: Order Comment: Speci men Type: URINE SPECIMENOrdering Facility: [facility] Address: [address] [place] [address] Performed By: #### L [id number] ####[facility][1] LABORATORYCLIA [id number] [address] Epithelial cells LM.HPF (Urine sed) [#/Area] Few Normal [facility] Comment on above: Order Comment: Speci men Type: URINE SPECIMENOrdering Facility: [facility] Address: [address] [place] [address] Performed By: #### L [id number] ####[facility][1] LABORATORYCLIA [id number] [address] Glucose Test strip (U) [Mass/Vol] Negative Normal Trace, Negative [facility] Comment on above: Order Comment: Speci men Type: URINE SPECIMENOrdering Facility: [facility] Address: [address] [place] [address] Performed By: #### L [id number] ####[facility][1] LABORATORYCLIA [id number] [address] Hemoglobin Ql (U) 3+ Abnormal Negative, Trace [facility] Comment on above: Order Comment: Speci men Type: URINE SPECIMENOrdering Facility: [facility] Address: [address] [place] [address] Performed By: #### L [id number] ####[facility][1] LABORATORYCLIA [id number] [address] Hyaline casts (Urine sed) [#/Area] /[LPF] Abnormal 0 /LPF [facility] Comment on above: Order Comment: Speci men Type: URINE SPECIMENOrdering Facility: [facility] Address: [address] [place] [address] Performed By: #### L [id number] ####[facility][1] LABORATORYCLIA [id number] [address] Ketones Ql (U) Negative Normal Negative, Trace [facility] Comment on above: Order Comment: Speci men Type: URINE SPECIMENOrdering Facility: [facility] Address: [address] [place] [address] Performed By: #### L [id number] ####[facility][1] LABORATORYCLIA [id number] [address] Leukocyte esterase Test strip Ql (U) Negative Normal Negative, 25 Carlos/uL [facility] Comment on above: Order Comment: Speci men Type: URINE SPECIMENOrdering Facility: [facility] Address: [address] [place] [address] Performed By: #### L [id number] ####[facility][1] LABORATORYCLIA [id number] [address] [place] Nitrite Ql (U) Negative Normal Negative [facility] Comment on above: Order Comment: Speci men Type: URINE SPECIMENOrdering Facility: [facility] Address: [address] [place] [address] Performed By: #### L [id number] ####[facility] CARMELCLIA [id number] [address] [place] pH (U) 5.5 [pH] Normal 5.0-8.0 [facility] Comment on above: Order Comment: Speci men Type: URINE SPECIMENOrdering Facility: [facility] Address: [address] [place] [address] Performed By: #### L [id number] ####[facility][1] LABORATORYCLIA [id number] [address] STATES [facility] Protein (U) [Mass/Vol] 1+ Abnormal Trace, Negati ve [facility] Comment on above: Order Comment: Speci men Type: URINE SPECIMENOrdering Facility: [facility] Address: [address] [place] [address] Performed By: #### L [id number] ####[facility][1] LABORATORYCLIA [id number] [address] STATES [facility] RBC LM.HPF (Urine sed) [#/Area] 11-25 /HPF Abnormal 0-3 /HPF [facility] Comment on above: Order Comment: Speci men Type: URINE SPECIMENOrdering Facility: [facility] Address: [address] [place] [address] Performed By: #### L [id number] ####[facility][1] LABORATORYCLIA [id number] [address] Specific gravity (U) [Rel density] 1.025 Normal 1.005-1.030 [facility] Comment on above: Order Comment: Speci men Type: URINE SPECIMENOrdering Facility: [facility] Address: [address] [place] [address] Performed By: #### L [id number] ####[facility][1] LABORATORYCLIA [id number] [address] Urobilinogen Ql (U) Normal Normal Normal [facility] Comment on above: Order Comment: Speci men Type: URINE SPECIMENOrdering Facility: [facility] Address: [address] [place] [address] Performed By: #### L [id number] ####[facility][1] LABORATORYIA [id number] [address] [place] WBC LM.HPF (Urine sed) [#/Area] 0-5 /HPF Normal 0-5 /HPF [facility] Comment on above: Order Comment: Speci men Type: URINE SPECIMENOrdering Facility: [facility] Address: [address] [place] [address] Performed By: #### L [id number] ####[facility][1] LABORATORYCLIA [id number] [address] .Auto Diffon 05-30-2024 Basophil, Absolute 0.1 10 3/mcL Normal 0.0-0.2 [facility] Comment on above: Performed By: #### M G #### [address] [address] Basophils/100 WBC (Bld) 0.5 % Normal 0.0-2.5 [facility] Comment on above: Performed By: #### M G #### [address] [address] Eosinophil, Absolute 0.2 10 3/mcL Normal 0.0-0.7 [facility] [facility] Comment on above: Performed By: #### M G #### [address] [address] Eosinophils/100 WBC (Bld) 0.8 % Normal 0.0-7.0 [facility] Comment on above: Performed By: #### M G #### [address] [address] Lymphocyte, Absolute 3.1 10 3/mcL Normal 0.9-4.3 [facility] Comment on above: Performed By: #### M G #### [address] [address] Lymphocytes/100 WBC (Bld) 16.2 % Low 20.0-40.0 [facility] Comment on above: Performed By: #### M G #### [address] [address] Monocyte, Absolute 1.6 10 3/mcL High 0.1-1.4 [facility] Comment on above: Performed By: #### M G #### [address] [address] Monocytes/100 WBC (Bld) 8.3 % Normal 2.0-13.0 [facility] Comment on above: Performed By: #### M G #### [address] [address] Neutrophils/100 WBC (Bld) 74.2 % Normal 50.0-75.0 [facility] Comment on above: Performed By: #### M G #### [address] [address] .GFRon 05-30-2024 GFR Non- 110 ml/min/1.73sqm Normal [facility] Comment on above: Result Comment: GFR Population mean for , Non- Americans Ages 20-29 = 116 mL/min/1.73 sq.m. Ages 30-39 = 107 mL/min/1.73 sq.m. Ages 40-49 = 99 mL/min/1.73 sq.m. Ages 50-59 = 93 mL/min/1.73 sq.m. Ages 60-69 = 85 mL/min/1.73 sq.m. Ages 70+ = 75 mL/min/1.73 sq.m. Chronic Kidney Disease: Less than 60 mL/min/1.73 square meters End Stage Renal Disease: Less than 15 mL/min/1.73 square meters Performed By: #### A DIFF, TSH, CMP, VIDH, FT4, CBC, FE, GFR, ANEU, FERR, ESR, URIC #### [address] [place], [place] [address] GFR 134 ml/min/1.73sqm Normal [facility] Comment on above: Result Comment: GFR Population mean for , Non- Americans Ages 20-29 = 116 mL/min/1.73 sq.m. Ages 30-39 = 107 mL/min/1.73 sq.m. Ages 40-49 = 99 mL/min/1.73 sq.m. Ages 50-59 = 93 mL/min/1.73 sq.m. Ages 60-69 = 85 mL/min/1.73 sq.m. Ages 70+ = 75 mL/min/1.73 sq.m. Chronic Kidney Disease: Less than 60 mL/min/1.73 square meters End Stage Renal Disease: Less than 15 mL/min/1.73 square meters Performed By: #### A DIFF, TSH, CMP, VIDH, FT4, CBC, FE, GFR, ANEU, FERR, ESR, URIC #### [address] [place], [place] [address] .NEUABSon 05-30-2024 Neutrophil, Absolute 14.4 10 3/mcL High 2.3-8.1 [facility] Comment on above: Performed By: #### M G #### [address] [address] CBCon 05-30-2024 Erythrocyte distribution width (RBC) [Ratio] 15.8 % High 11.5-15.5 [facility] Comment on above: Performed By: #### M G #### [address] [place], [place] [address] Hematocrit (Bld) [Volume fraction] 34.1 % Normal 34.0-46.0 [facility] Comment on above: Performed By: #### Mike Rivera #### [address] [address] Hgb 11.1 G/dL Low 12.0-16.0 [facility] Comment on above: Performed By: #### Mike Rivera #### [address] [address] MCH (RBC) [Entitic mass] 25.5 pg Low 27.0-33.0 [facility] Comment on above: Performed By: #### Mike Rivera #### [address] [address] MCHC 32.6 G/dL Normal 32.0-36.0 [facility] Comment on above: Performed By: #### Mike Rivera #### [address] [address] MCV (RBC) [Entitic vol] 78.2 fL Low 80.0-99.0 [facility] Comment on above: Performed By: #### Mike Rivera #### [address] [address] Platelet 271 10 3/mcL Normal 150-450 [facility] Comment on above: Performed By: #### Mike Rivera #### [address] [address] Platelet mean volume (Bld) [Entitic vol] 9.4 fL Normal 6.6-10.5 [facility] Comment on above: Performed By: #### Mike Rivera #### [address] [address] RBC 4.36 10 6/mcL Normal 4.10-5.30 [facility] Comment on above: Performed By: #### Mike G #### [address] [address] WBC 19.4 10 3/mcL High 4.5-10.8 [facility] Comment on above: Performed By: #### Mike Rivera #### [address] [address] CBC panel Auto (Bld)on 05-30 Erythrocyte distribution width (RBC) [Ratio] 14.4 % Normal 11.5-15.0 [facility] Comment on above: Order Comment: Speci men Type: BLOOD SPECIMENOrdering Facility: [facility] Address: [address] [place] [address] Performed By: #### 5 8410-2 ####[facility][1] LABORATORYCLIA [id number] [address] OF [facility] Hematocrit (Bld) [Volume fraction] 36.3 % Normal 36.0-46.0 [facility] Comment on above: Order Comment: Speci men Type: BLOOD SPECIMENOrdering Facility: [facility] Address: [address] [place] [address] Performed By: #### 5 8410-2 ####[facility][1] LABORATORYCLIA [id number] [address] OF [facility] Hemoglobin (Bld) [Mass/Vol] 11.5 g/dL Normal 11.5-15.5 [facility] Comment on above: Order Comment: Speci men Type: BLOOD SPECIMENOrdering Facility: [facility] Address: [address] [place] [address] Performed By: #### 5 8410-2 ####[facility][1] LABORATORYCLIA [id number] [address] [place] MCH (RBC) [Entitic mass] 25.4 pg Low 26.0-34.0 [facility] Comment on above: Order Comment: Speci men Type: BLOOD SPECIMENOrdering Facility: [facility] Address: [address] [place] [address] Performed By: #### 5 8410-2 ####[facility][1] LABORATORYCLIA [id number] [address] [place] MCHC (RBC) [Mass/Vol] 31.7 g/dL Normal 30.5-36.0 [facility] Comment on above: Order Comment: Speci men Type: BLOOD SPECIMENOrdering Facility: [facility] Address: [address] [place] [address] Performed By: #### 5 8410-2 ####[facility][1] LABORATORYCLIA [id number] [address] MCV (RBC) [Entitic vol] 80.3 fL Normal 80.0-100.0 [facility] Comment on above: Order Comment: Speci men Type: BLOOD SPECIMENOrdering Facility: [facility] Address: [address] [place] [address] Performed By: #### 5 8410-2 ####[facility][1] LABORATORYCLIA [id number] [address] [place] Nucleated RBC (Bld) [#/Vol] 10*3/uL Normal <0.01 [facility] Comment on above: Order Comment: Speci men Type: BLOOD SPECIMENOrdering Facility: [facility] Address: [address] [place] [address] Performed By: #### 5 8410-2 ####[facility][1] LABORATORYCLIA [id number] [address] Platelet mean volume (Bld) [Entitic vol] 11.8 fL Normal 9.0-12.7 [facility] Comment on above: Order Comment: Speci men Type: BLOOD SPECIMENOrdering Facility: [facility] Address: [address] [place] [address] Performed By: #### 5 8410-2 ####[facility][1] LABORATORYCLIA [id number] [address] Platelets (Bld) [#/Vol] 301 10*3/uL Normal 150-400 [facility] Comment on above: Order Comment: Speci men Type: BLOOD SPECIMENOrdering Facility: [facility] Address: [address] [place] [address] Performed By: #### 5 8410-2 ####[facility][1] LABORATORYCLIA [id number] [address] [place] RBC (Bld) [#/Vol] 4.52 10*6/uL Normal 3.90-5.20 [facility] Comment on above: Order Comment: Speci men Type: BLOOD SPECIMENOrdering Facility: [facility] Address: [address] [place] [address] Performed By: #### 5 8410-2 ####[facility] LABORATORYCLIA [id number] [address] OF [facility] WBC (Bld) [#/Vol] 22.49 10*3/uL High 3.70-11.00 [facility] Comment on above: Order Comment: Speci men Type: BLOOD SPECIMENOrdering Facility: [facility] Address: [address] [place] [address] Performed By: #### 5 8410-2 ####[facility][1] LABORATORYCLIA [id number] [address] CMPon 05-30-2024 Albumin Level 2.9 G/dL Low 3.5-5.0 [facility] Comment on above: Performed By: #### M G #### [address] [address] Albumin/Globulin [Mass ratio] 0.8 {ratio} Low 1.1-2.5 [facility] Comment on above: Performed By: #### M G #### [address] [address] ALP [Catalytic activity/Vol] 143 U/L High 40-135 [facility] Comment on above: Performed By: #### M G #### [address] [address] ALT [Catalytic activity/Vol] 33 U/L Normal 14-59 [facility] Comment on above: Performed By: #### M G #### [address] [address] AST [Catalytic activity/Vol] 31 U/L Normal 10-40 [facility] Comment on above: Performed By: #### M G #### [address] [address] Bili Total 0.2 mg/dL Normal 0.2-1.0 [facility] Comment on above: Result Comment: Use of this assay is not recommended for patients undergoing treatment with eltrombopag due to the potential for falsely elevated results. Performed By: #### M G #### [place] [id number] BUN/Creatinine Ratio 11 ratio Normal 7-27 [facility] Comment on above: Performed By: #### M G #### [place] [address] Calcium [Mass/Vol] 9.3 mg/dL Normal 8.4-10.2 [facility] Comment on above: Performed By: #### M G #### [place] [address] Chloride [Moles/Vol] 105 mmol/L Normal 98-107 [facility] Comment on above: Performed By: #### M G #### [place] [address] CO2 [Moles/Vol] 23 mmol/L Normal 22-29 [facility] Comment on above: Performed By: #### M G #### [place] [phone] Creatinine [Mass/Vol] 0.64 mg/dL Normal 0.55-1.02 [facility] Comment on above: Result Comment: Test ing performed on Siemens Dimension EXL analyzer using a modified kinetic Wen technique. Performed By: #### M G #### [address] [address] Electrolyte Balance 11.0 mEq/L Normal 4.0-15.0 [facility] Comment on above: Performed By: #### M G #### [place] [address] Globulin 3.5 G/dL Normal [facility] Comment on above: Performed By: #### M G #### [place] [id number] Glucose [Mass/Vol] 91 mg/dL Normal 70-105 [facility] Comment on above: Performed By: #### M G #### [address] [place], [place] [address] Potassium [Moles/Vol] 3.9 mmol/L Normal 3.5-5.1 [facility] Comment on above: Performed By: #### M G #### [address] [address] Sodium [Moles/Vol] 139 mmol/L Normal 136-145 [facility] Comment on above: Performed By: #### M G #### [address] [address] Total Protein 6.4 G/dL Normal 6.4-8.2 [facility] Comment on above: Performed By: #### M G #### [address] [address] Urea nitrogen [Mass/Vol] 7 mg/dL Normal 7-18 [facility] Comment on above: Performed By: #### M G #### [address] [address] CONFIRM BLOOD TYPEon 024 ABO A Normal [facility] Comment on above: Order Comment: Speci men Type: BLOOD SPECIMEN [facility] Address: [address] [place] [address] Performed By: #### C ONO #### [facility][1] BLOOD BANK CLIA [id number] [place] Rh Nom (Bld) Positive Normal [facility] Comment on above: Order Comment: Speci men Type: BLOOD SPECIMEN [facility] Address: [address] [place] [address] Performed By: #### C ONABO #### [facility][1] BLOOD BANK CLIA [id number] 1 [place] [address] [place] Comprehensive metabolic 2000 panelon 05-30-2024 Albumin [Mass/Vol] 3.7 g/dL Low 3.9-4.9 [facility] Comment on above: Order Comment: Speci men Type: BLOOD SPECIMENOrdering Facility: [facility] Address: [address] [place] [address] Performed By: #### 2 4323-8 ####[facility] LABORATORYCLIA [id number] [address] STATES [facility] ALP [Catalytic activity/Vol] 138 U/L High 34-123 [facility] Comment on above: Order Comment: Speci men Type: BLOOD SPECIMENOrdering Facility: [facility] Address: [address] [place] [address] Performed By: #### 2 4323-8 ####[facility]ORATORYCLIA [id number] [address] ALT With P-5'-P [Catalytic activity/Vol] 28 U/L Normal 7-38 [facility] Comment on above: Order Comment: Speci men Type: BLOOD SPECIMENOrdering Facility: [facility] Address: [address] [place] [address] Performed By: #### 2 4323-8 ####[facility]ORATORYCLIA [id number] [address] [place] Anion gap [Moles/Vol] 11 mmol/L Normal 8-15 [facility] Comment on above: Order Comment: Speci men Type: BLOOD SPECIMENOrdering Facility: [facility] Address: [address] [place] [address] Performed By: #### 2 4323-8 ####[facility]ORATORYCLIA [id number] [address] STATES [facility] AST With P-5'-P [Catalytic activity/Vol] 42 U/L High 13-35 [facility] Comment on above: Order Comment: Speci men Type: BLOOD SPECIMENOrdering Facility: [facility] Address: [address] [place] [address] Performed By: #### 2 4323-8 ####[facility]ORATORYCLIA [id number] [address] [place] Bilirubin [Mass/Vol] 0.2 mg/dL Normal 0.2-1.3 [facility] Comment on above: Order Comment: Speci men Type: BLOOD SPECIMENOrdering Facility: [facility] Address: [address] [place] [address] Performed By: #### 2 4323-8 ####[facility] LABORATORYCLIA [id number] [address] [place] Calcium [Mass/Vol] 9.3 mg/dL Normal 8.5-10.2 [facility] Comment on above: Order Comment: Speci men Type: BLOOD SPECIMENOrdering Facility: [facility] Address: [address] [place] [address] Performed By: #### 2 4323-8 ####[facility][1] LABORATORYCLIA [id number] [place] [address] [place] Chloride [Moles/Vol] 99 mmol/L Normal 98-107 [facility] Comment on above: Order Comment: Speci men Type: BLOOD SPECIMENOrdering Facility: [facility] Address: [address] [place] [address] Performed By: #### 2 4323-8 ####[facility][1] LABORATORYCLIA [id number] [address] [place] CO2 [Moles/Vol] 20 mmol/L Low 22-30 [facility] Comment on above: Order Comment: Speci men Type: BLOOD SPECIMENOrdering Facility: [facility] Address: [address] [place] [address] Performed By: #### 2 4323-8 ####[facility]ORATORYCLIA [id number] [place] [address] [place] Creatinine [Mass/Vol] 0.61 mg/dL Normal 0.58-0.96 [facility] Comment on above: Order Comment: Speci men Type: BLOOD SPECIMENOrdering Facility: [facility] Address: [address] [place] [address] Performed By: #### 2 4323-8 ####[facility]ORATORYCLIA [id number] [address] [place] Creatinine and Glomerular filtration rate.predicted panel (S/P/Bld) 125 mL/min/1.73m??? Normal >=60 [facility] Comment on above: Order Comment: Marisa mckeon Type: BLOOD SPECIMENOrdering Facility: [facility] Address: [address] [place] [address] Result Comment: Shannon mated Glomerular Filtration Rate (eGFR) is calculated using the 2020 CKD-EPI creatinine equation. This equation utilizes serum creatinine, sex, and age as parameters. The creatinine assay has traceable calibration to isotope dilution-mass spectrometry. Refer to KDIGO guidelines for clinical interpretation. In patients with unstable renal function, e.g. those with acute kidney injury, the eGFR may not accurately reflect actual GFR. Performed By: #### 2 4323-8 ####[facility][1] LABORATORYCLIA [id number] [place] [address] [place] Glucose [Mass/Vol] 105 mg/dL High 74-99 [facility] Comment on above: Order Comment: Marisa mckeon Type: BLOOD SPECIMENOrdering Facility: [facility] Address: [address] [place] [address] Result Comment: The [place] Diabetes Association (ADA) provides guidance for cutoff values for fasting glucose and random glucose. The ADA defines fasting as no caloric intake for at least 8 hours. Fasting plasma glucose results between 100 to 125 [...] Standards of Medical Care in Diabetes 2016, [place] Diabetes Association. Diabetes Care. 2016.39(Suppl 1). Performed By: #### 2 4323-8 ####[facility][1] LABORATORYCLIA [id number] [place] [address] [place] Potassium [Moles/Vol] 4.2 mmol/L Normal 3.7-5.1 [facility] Comment on above: Order Comment: Speci men Type: BLOOD SPECIMENOrdering Facility: [facility] Address: [address] [place] [address] Performed By: #### 2 4323-8 ####[facility][1] LABORATORYCLIA [id number] [address] Protein [Mass/Vol] 6.9 g/dL Normal 6.3-8.0 [facility] Comment on above: Order Comment: Speci men Type: BLOOD SPECIMENOrdering Facility: [facility] Address: [address] [place] [address] Performed By: #### 2 4323-8 ####[facility][1] LABORATORYCLIA [id number] [address] Sodium [Moles/Vol] 130 mmol/L Low 136-144 [facility] Comment on above: Order Comment: Speci mike Type: BLOOD SPECIMENOrdering Facility: [facility] Address: [address] [place] [address] Performed By: #### 2 4323-8 ####[facility][1] LABORATORYCLIA [id number] [address] Urea nitrogen [Mass/Vol] 7 mg/dL Normal 7-21 [facility] Comment on above: Order Comment: Corii mike Type: BLOOD SPECIMENOrdering Facility: [facility] Address: [address] [place] [address] Performed By: #### 2 4323-8 ####[facility][1] LABORATORYCLIA [id number] [address] [place] HISTORY PHYSICALon HISTORY PHYSICAL HNO ID: [id number] Author: BJ LANE MD Service: Maternal Medicine Author Type: Resident Type: H&P Filed: 05/31/2024 19:02 Note Text: ---- Attestation signed by Bj Lane MD at 05/31/2024 7:02 PM Attending Attestation I evaluated the patient and personally participated in the martinez components. I agree with the resident's findings and plan as documented and have discussed the case and management of the patient's care with the resident. I have reviewed and edited the above note to reflect our collaborative assessment and recommendations. 28yo at 31w4d with CHTN admitted to rule out superimposed preeclampsia. Agree with plan as outline below. Bj Lane MD ---- OBSTETRICS HISTORY AND PHYSICAL SERVICE DATE: May 30, 2024 SERVICE TIME: 4:17 PM Subjective Patient's stated reason for arrival: Elevated blood pressure CHIEF COMPLAINT: Sent from [facility] for Chronic hypertension exacerbation vs Superimposed preeclampsia HISTORY OF THE PRESENT ILLNESS: The patient is a 28 year old female, , who is at 31w4d with an JOE of 07/28/2024, by Ultrasound dating method. Patient was sent from [facility] for admission in the setting of rule out chronic hypertension exacerbation vs superimposed preeclampsia. The patient has known chronic hypertension on Procardia 60 BID and Labetalol 600 TID. She was admitted to [facility] from 04/17-04/18 for a chronic hypertension exacerbation. The patient was having elevated blood pressures at home yesterday and today and came in to [facility] for evaluation. Limited records are available from the patient's visit there, but it is documented that she had one severe range blood pressure of 181/119 while she was there and that she was acutely treated with Labetalol 20, started on Magnesium, given one dose of rescue steroids, and transferred to [facility]. The patient is not able to provide any further information about what happened at that hospital other than that her blood pressure was high. Upon arrival, the patient states that her primary concern is lower back and abdominal pain. She is concerned that she is in labor. She states that she started feeling some pain this morning but is not sure exactly when it started. She states she was given a dose of Nubain at the other hospital and she is feeling better now than she was earlier. Denies headache, vision changes, RUQ pain, new-onset edema, chest pain, shortness of breath. States that she has had upper respiratory symptoms of rhinorrhea and congestion for several months in this that she was told was normal. Endorses good movement. Denies vaginal bleeding or leakage of fluid. POST DELIVERY CONTRACEPTION: Discussed post-delivery contraception options. Patient received written information about post-delivery contraception options. Patient does not desire post-delivery contraception. 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 H/O pyloric stenosis 11/1995 s/p repair Learning disability IEP, reading and spelling MIGRAINE NOS W/O MENTN INTRACTABLE Stock Neurofibromatosis, type 1 (HCC) [place] Optic nerve glioma (HCC) Left eye Periodic limb movement does not inerfere with sleep Scoliosis Seizure (HCC) Visual field constriction of right eye PAST SURGICAL HISTORY Procedure Laterality Date BOTOX INJECTION For migraines every 3 months pyloric stenosis 12/1995 UNLISTED PROCEDURE HUMERUS/ELBOW left elbow re-construction x 3 FAMILY HISTORY Problem Relation Age of Onset Asthma Mother Maternal side Cancer Mother Maternal side Diabetes Mother Maternal side other (Neurofibromatosis) Mother Cancer Father Paternal side Diabetes Father Paternal side Ischemic Heart Disease Father [place] Asthma Father Paternal side Hypertension Father Diabetes Maternal Grandmother Heart Maternal Grandmother other (Neurofibromatosis) Maternal Grandmother Heart Paternal Grandmother CHF Ischemic Heart Disease Paternal Grandmother other (Neurofibromatosis) Brother other (Neurofibromatosis) Brother other (Neurofibromatosis) Sister Social History Tobacco Use Smoking status: Former Types: Cigarettes Passive exposure: Yes Smokeless tobacco: Never Tobacco comments: mom and dad smoke outside Vaping Use Vaping status: Former Substance Use Topics Alcohol use: No Drug use: No Obstetric History T1 L1 SAB0 IAB0 Ectopic0 Multiple0 Live Births1 Name of Baby 1: Donte Huber Date: 09/26/14 GA: 41w6d Type: Vaginal, Spontaneous Apgar1: Not recorded Apgar5: Not recorded Living: Living Name of Baby 2: Not recorded (more content not included)... Normal [facility] LABORATORYOrdered By: SYSTEM SYSTEM on 05-30-2024 Albumin BCP dye [Mass/Vol] 2.9 G/dL Low 3.5 - 5.0 G/dL AO ADM SS Albumin/Globulin [Mass ratio] 0.8 {ratio} Low 1.1 - 2.5 ratio AO ADM SS ALP [Catalytic activity/Vol] 143 U/L High 40 - 135 U/L AO ADM SS ALT With P-5'-P [Catalytic activity/Vol] 33 U/L Normal 14 - 59 U/L AO ADM SS AST With P-5'-P [Catalytic activity/Vol] 31 U/L Normal 10 - 40 U/L AO ADM SS Basophils (Bld) [#/Vol] 0.1 103/mcL Normal 0.0 - 0.2 10^3/mcL AO Workflow SS Basophils/100 WBC (Bld) 0.5 % Normal 0.0 - 2.5 % AO Workflow SS Bilirubin [Mass/Vol] 0.2 mg/dL Normal 0.2 - 1.0 mg/dL AO ADM SS Comment on above: Interpretive Data: U se of this assay is not recommended for patients undergoing treatment with eltrombopag due to the potential for falsely elevated results. Calcium [Mass/Vol] 9.3 mg/dL Normal 8.4 - 10. 2 mg/dL AO ADM SS Chloride [Moles/Vol] 105 mmol/L Normal 98 - 107 mmol/L AO ADM SS CO2 [Moles/Vol] 23 mmol/L Normal 22 - 29 mmol/L AO AD M SS Creatinine [Mass/Vol] 0.64 mg/dL Normal 0.55 - 1.02 mg/dL AO ADM SS Comment on above: Interpretive Data: T esting performed on Siemens Dimension EXL analyzer using a modified kinetic Wen technique. Electrolyte Balance 11.0 mEq/L Normal 4.0 - 15 .0 mEq/L AO ADM SS Eosinophil, Absolute 0.2 103/mcL Normal 0.0 - 0 .7 10^3/mcL AO Workflow SS Eosinophils/100 WBC (Bld) 0.8 % Normal 0.0 - 7.0 % AO Workflow SS Erythrocyte distribution width (RBC) [Ratio] 15.8 % High 11.5 - 15.5 % AO Workflow SS GFR/1.73 sq M.predicted among blacks MDRD (S/P/Bld) [Vol rate/Area] 134 ml/min/1.73sqm Invalid Interpretation Code AO Chemistry S Comment on above: Interpretive Data: GFR Population mean for , Non- Americans Ages 20-29 = 116 mL/min/1.73 sq.m. Ages 30-39 = 107 mL/min/1.73 sq.m. Ages 40-49 = 99 mL/min/1.73 sq.m. Ages 50-59 = 93 mL/min/1.73 sq.m. Ages 60-69 = 85 mL/min/1.73 sq.m. Ages 70+ = 75 mL/min/1.73 sq.m. Chronic Kidney Disease: Less than 60 mL/min/1.73 square meters End Stage Renal Disease: Less than 15 mL/min/1.73 square meters GFR/1.73 sq M.predicted among non-blacks MDRD (S/P/Bld) [Vol rate/Area] 110 ml/min/1.73sqm Invalid Interpretation Code AO Chemistry S Comment on above: Interpretive Data: GFR Population mean for , Non- Americans Ages 20-29 = 116 mL/min/1.73 sq.m. Ages 30-39 = 107 mL/min/1.73 sq.m. Ages 40-49 = 99 mL/min/1.73 sq.m. Ages 50-59 = 93 mL/min/1.73 sq.m. Ages 60-69 = 85 mL/min/1.73 sq.m. Ages 70+ = 75 mL/min/1.73 sq.m. Chronic Kidney Disease: Less than 60 mL/min/1.73 square meters End Stage Renal Disease: Less than 15 mL/min/1.73 square meters Globulin 3.5 G/dL Invalid Interpretation Code AO ADM SS Glucose [Mass/Vol] 91 mg/dL Normal 70 - 105 mg/dL AO ADM SS Hematocrit (Bld) [Volume fraction] 34.1 % Normal 34.0 - 46.0 % AO Workflow SS Hemoglobin (Bld) [Mass/Vol] 11.1 G/dL Low 12.0 - 16.0 G/dL AO Workflow SS Lymphocytes (Bld) [#/Vol] 3.1 103/mcL Normal 0.9 - 4.3 10^3/mcL AO Workflow SS Lymphocytes/100 WBC (Bld) 16.2 % Low 20.0 - 40.0 % AO Workflow SS Magnesium [Mass/Vol] 1.6 mg/dL Low 1.8 - 2.4 mg/dL AO ADM SS MCH (RBC) [Entitic mass] 25.5 pg Low 27.0 - 33.0 pg AO Workflow SS MCHC 32.6 G/dL Normal 32.0 - 36.0 G/dL AO Workflow SS MCV (RBC) [Entitic vol] 78.2 fL Low 80.0 - 99.0 fL AO Workflow SS Monocytes (Bld) [#/Vol] 1.6 103/mcL High 0.1 - 1.4 10^3/mcL AO Workflow SS Monocytes/100 WBC (Bld) 8.3 % Normal 2.0 - 13.0 % AO Workflow SS Neutrophils (Bld) [#/Vol] 14.4 103/mcL High 2.3 - 8.1 10^3/mcL AO Workflow SS Neutrophils/100 WBC (Bld) 74.2 % Normal 50.0 - 75.0 % AO Workflow SS Platelet mean volume (Bld) [Entitic vol] 9.4 fL Normal 6.6 - 10.5 fL AO Workflow SS Platelets (Bld) [#/Vol] 271 103/mcL Normal 150 - 450 10^3/mcL AO Workflow SS Potassium [Moles/Vol] 3.9 mmol/L Normal 3.5 - 5.1 mmol/L AO ADM SS Protein [Mass/Vol] 6.4 G/dL Normal 6.4 - 8.2 G/dL AO ADM SS RBC (Bld) [#/Vol] 4.36 106/mcL Normal 4.10 - 5.3 0 10^6/mcL AO Workflow SS Sodium [Moles/Vol] 139 mmol/L Normal 136 - 145 mmol/L AO ADM SS Urea nitrogen [Mass/Vol] 7 mg/dL Normal 7 - 18 mg/dL AO ADM SS Urea nitrogen/Creatinine [Mass ratio] 11 ratio Normal 7 - 27 ratio AO ADM SS Uric Acid Lvl 4.8 mg/dL Normal 2.6 - 6.2 mg/dL AO ADM SS WBC (Bld) [#/Vol] 19.4 103/mcL High 4.5 - 10.8 10^3/mcL AO Workflow SS LABORATORYOrdered By: Jay Weiss on 05-30-2024 Creatinine (U) [Mass/Vol] 43.4 mg/dL Normal 28.0 - 117.0 mg/dL AO ADM SS Protein (U) [Mass/Vol] 339 mg/dL High 0 - 11 mg/dL AO ADM SS U Ratio Prot/Creat 7.82 ratio Invalid Interpretation Code AO ADM SS MGon 05-30-2024 Magnesium [Mass/Vol] 1.6 mg/dL Low 1.8-2.4 [facility] Comment on above: Performed By: #### M G #### [facility] [address] [place], [place] [address] PROTEIN / CREATININE RATIOon 05-30-2024 Protein/Creatinine (U) [Mass ratio] 0.14 mg/mg NINF - 0.15 mg/mg [facility] Comment on above: Adult Proteinuria Ca tegories: <0.15 mg/mg is considered normal to mildly increased 0.15 - 0.50 mg/mg is considered moderately increased >0.50 mg/mg is considered severely increased KDIGO. (2013). KDIGO 2012 Clinical Practice Guideline for the Evaluation and Management of Chronic Kidney Disease. Official Journal of the International Society of Nephrology, 3(1), 1-150. Prot/Creat Uron 05-30-2024 Protein/Creatinine (U) [Mass ratio] 0.61 mg/mg High <0.15 [facility] Comment on above: Order Comment: Speci men Type: URINE SPECIMENOrdering Facility: [facility] Address: [address] [place] [address] Result Comment: Adul t Proteinuria Categories: <0.15 mg/mg is considered normal to mildly increased 0.15 - 0.50 mg/mg is considered moderately increased >0.50 mg/mg is considered severely increased KDIGO. (2013). KDIGO 2012 Clinical Practice Guideline for the Evaluation and Management of Chronic Kidney Disease. Official Journal of the International Society of Nephrology, 3(1), 1-150. Performed By: #### 2 890-2 ####[facility][1] LABORATORYCLIA [id number] [place] [address] [place] [facility] Protein/Creatinine (U) [Mass ratio]on 05-30-2024 Creatinine (U) [Mass/Vol] 102.3 mg/dL Normal 42.2-237.9 [facility] Comment on above: Order Comment: Speci men Type: URINE SPECIMENOrdering Facility: [facility] Address: [address] [place] [address] Performed By: #### 2 890-2 ####[facility][1] LABORATORYCLIA [id number] [place] [address] [place] Protein (U) [Mass/Vol] 62 mg/dL High 0-20 [facility] Comment on above: Order Comment: Speci men Type: URINE SPECIMENOrdering Facility: [facility] Address: [address] [place] [address] Performed By: #### 2 890-2 ####[facility][1] LABORATORYCLIA [id number] [place] [address] [place] Creatinine (U) [Mass/Vol] 122.0 mg/dL 20.0 - 300.0 mg/dL [facility] Interpretation and review of laboratory results Normal [facility] Protein (U) [Mass/Vol] 17 mg/dL 0 - 20 mg/dL [facility] ROUTINE, GROUP B ST REP PCRon 05-30-2024 ROUTINE, GROUP B STREP PCR GROUP B STREP PCR: Negative for Group B Streptococcus by PCR. Normal [facility] Comment on above: Performed By: #### G BPCR #### [facility][1] LABORATORY CLIA [id number] [address] [place] [address] [place] RPCURon 05-30-2024 U Creatinine 43.4 mg/dL Normal 28.0-117.0 [facility] Comment on above: Performed By: #### M G #### [address] [place], [place] [address] U Protein 339 mg/dL High 0-11 [facility] Comment on above: Performed By: #### M G #### [address] [place], [place] [address] U Ratio Prot/Creat 7.82 ratio Normal [facility] Comment on above: Result Comment: resu lt calculated by rule GL_UR_PROT_NOTCALC_OLD (U Protein/U Creatinine) Performed By: #### M G #### [address] [place], [place] [address] TYPE + SCREEN PRENATALon ABO A Normal [facility] Comment on above: Order Comment: Speci men Type: BLOOD SPECIMEN [facility] Address: [address] [place] [address] Performed By: #### T SPN #### [facility][1] BLOOD BANK CLIA [id number] [address] [place] Rh Nom (Bld) Positive Normal [facility] Comment on above: Order Comment: Speci men Type: BLOOD SPECIMEN [facility] Address: [address] [place] [address] Performed By: #### T SPN #### [facility][1] BLOOD BANK CLIA [id number] [address] STATES OF [facility] TYPE AND SCREEN EXPIRATION 06/02/2024 23:59 Normal [facility] Comment on above: Order Comment: Speci men Type: BLOOD SPECIMEN [facility] Address: [address] [place] [address] Performed By: #### T SPN #### [facility][1] BLOOD BANK CLIA [id number] [address] [place] URICon 05-30-2024 Uric Acid Lvl 4.8 mg/dL Normal 2.6-6.2 [facility] Comment on above: Performed By: #### Mike G #### [address] [place], [place] [address] CBC panel Auto (Bld)on 05-29 Erythrocyte distribution width (RBC) [Ratio] 14.3 % 11.5 - 15.0 % [facility] Hematocrit (Bld) [Volume fraction] 33.4 % Low 36.0 - 46.0 % [facility] Hemoglobin (Bld) [Mass/Vol] 10.4 g/dL Low 11.5 - 15.5 g/dL [facility] Interpretation and review of laboratory results Abnormal [facility] MCH (RBC) [Entitic mass] 25.2 pg Low 26.0 - 34.0 pg [facility] MCHC (RBC) [Mass/Vol] 31.1 g/dL 30.5 - 36.0 g/dL [facility] MCV (RBC) [Entitic vol] 80.9 fL 80.0 - 100.0 fL [facility] Nucleated RBC (Bld) [#/Vol] NINF [facility] Platelet mean volume (Bld) [Entitic vol] 10.9 fL 9.0 - 12.7 fL [facility] Platelets (Bld) [#/Vol] 261 10*3/uL [facility] RBC (Bld) [#/Vol] 4.13 10*6/uL 3.90 - 5.2 0 m/uL [facility] WBC (Bld) [#/Vol] 13.20 10*3/uL High [facility] Erythrocyte distribution width (RBC) [Ratio] 14.3 % Normal 11.5-15.0 [facility] Comment on above: Order Comment: Speci men Type: BLOOD SPECIMENOrdering Facility: [facility] Address: [address] [place] [address] Performed By: #### 5 8410-2 ####[facility] [id number] [address] STATES OF [facility] Hematocrit (Bld) [Volume fraction] 33.4 % Low 36.0-46.0 [facility] Comment on above: Order Comment: Speci men Type: BLOOD SPECIMENOrdering Facility: [facility] Address: [address] [place] [address] Performed By: #### 5 8410-2 ####[facility] [id number] [place] [address] [place] Hemoglobin (Bld) [Mass/Vol] 10.4 g/dL Low 11.5-15.5 [facility] Comment on above: Order Comment: Speci men Type: BLOOD SPECIMENOrdering Facility: [facility] Address: [address] [place] [address] Performed By: #### 5 8410-2 ####[facility] [id number] [place] [address] [place] MCH (RBC) [Entitic mass] 25.2 pg Low 26.0-34.0 [facility] Comment on above: Order Comment: Speci men Type: BLOOD SPECIMENOrdering Facility: [facility] Address: [address] [place] [address] Performed By: #### 5 8410-2 ####[facility] [id number] [place] [address] [place] MCHC (RBC) [Mass/Vol] 31.1 g/dL Normal 30.5-36.0 [facility] Comment on above: Order Comment: Speci men Type: BLOOD SPECIMENOrdering Facility: [facility] Address: [address] [place] [address] Performed By: #### 5 8410-2 ####[facility] [id number] [place] [address] [place] MCV (RBC) [Entitic vol] 80.9 fL Normal 80.0-100.0 [facility] Comment on above: Order Comment: Speci men Type: BLOOD SPECIMENOrdering Facility: [facility] Address: [address] [place] [address] Performed By: #### 5 8410-2 ####[facility] [id number] [address] [place] Nucleated RBC (Bld) [#/Vol] 10*3/uL Normal <0.01 [facility] Comment on above: Order Comment: Speci men Type: BLOOD SPECIMENOrdering Facility: [facility] Address: [address] [place] [address] Performed By: #### 5 8410-2 ####[facility] [id number] [place] [id number] [place] Platelet mean volume (Bld) [Entitic vol] 10.9 fL Normal 9.0-12.7 [facility] Comment on above: Order Comment: Speci men Type: BLOOD SPECIMENOrdering Facility: [facility] Address: [address] [place] [address] Performed By: #### 5 8410-2 ####[facility] AIRAMCLAYTONPARDEEP [id number] [place] [address] [place] Platelets (Bld) [#/Vol] 261 10*3/uL Normal 150-400 [facility] Comment on above: Order Comment: Speci men Type: BLOOD SPECIMENOrdering Facility: [facility] Address: [address] [place] [address] Performed By: #### 5 8410-2 ####[facility] G[facility]ron [id number] [place] [address] [place] RBC (Bld) [#/Vol] 4.13 10*6/uL Normal 3.90-5.20 [facility] Comment on above: Order Comment: Speci men Type: BLOOD SPECIMENOrdering Facility: [facility] Address: [address] [place] [address] Performed By: #### 5 8410-2 ####[facility] [id number] [place] [address] [place] WBC (Bld) [#/Vol] 13.20 10*3/uL High 3.70-11.00 [facility] Comment on above: Order Comment: Speci men Type: BLOOD SPECIMENOrdering Facility: [facility] Address: [address] [place] [address] Performed By: #### 5 8410-2 ####[facility] [id number] [place] [address] [place] CNPNon 05-29-2024 CNPN Telephone (OGFVWE) ---- PABLO ALARCON ([id number]) 1995 F CHT Date Time Provider Department 05/29/24 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 FRVW CARDWELL OGWE During your visit today, we recorded the following information about you: Fortino Ag RN 05/29/2024 9:48 AM Signed 2nd risk assessment form submitted 05/29/24 Fortino Ag RN Allergies As of Date: 05/29/2024 Noted Allergy Reaction ACETAMINOPHEN 11/20/2017 16 - Unknown DIPHENHYDRAMINE 11/20/2017 16 - Unknown GABAPENTIN 04/24/2024 2 - Rash IBUPROFEN 11/20/2017 16 - Unknown SEASONAL ALLERGIES 12/12/2017 3 - Cough Date Reviewed: 05/26/2024 Reviewed by: Joceyln Botello MD - Fully Assessed Reason for Visit: PRAF [4193] Prescriptions as of 05/29/2024 - labetalol (TRANDATE) 300 mg tablet Take 2 tablets by mouth three times a day. - NIFEdipine XL (ADALAT CC) 60 mg 24 hr tablet Take 1 tablet by mouth two times a day. - aspirin, enteric coated (ASPIRIN, ENTERIC COATED) 81 mg EC tablet Take 1 tablet by mouth once daily. - famotidine (PEPCID AC) 20 mg tablet Take 1 tablet by mouth two times a day. - folic acid 1 mg tablet Take 3 tablets by mouth once daily. - sertraline (ZOLOFT) 50 mg tablet Take 50 mg by mouth once daily. Patient taking as needed because it makes her nauseated when she does take it - vit/iron fum/folic ac (RIGHT STEP VITAMINS ORAL) Take by mouth. Gummy - levETIRAcetam (KEPPRA) 500 mg tablet Take 1,000 mg by mouth two times a day. - fluticasone (FLONASE) 50 mcg/actuation nasal spray Use 1 [place] in each nostril once daily. 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 Chronic hypertension affecting [O10.9*04/24/2024 History of seizures [Z87.898] 04/24/2024 History of nicotine vaping [Z87.891] 04/24/2024 Anxiety and depression [F41.9, F32.A] 04/24/2024 History of miscarriage [Z87.59] 04/29/2024 Supervision of other high risk pregnancies, sec*04/29/2024 Arnold-Chiari malformation (HCC) [Q07.00] 04/29/2024 Poor historian [Z78.9] 04/29/2024 Abnormal ultrasound [O28.3] 05/12/2024 abnormality affecting management of mothe*05/18/2024 cardiac anomaly complicating , a*05/26/2024 Rubella non-immune status, antepartum [O09.899,* Encounter Status:Closed by FORTINO AG on 05/29/24 [facility] CREATININE BLDon 05-29-2024 Creatinine [Mass/Vol] 0.69 mg/dL 0.58 - 0.96 mg/dL [facility] GFR/1.73 sq M.predicted among non-blacks MDRD (S/P/Bld) [Vol rate/Area] 121 mL/min/{1.73_m2} - PINF [facility] Comment on above: Estimated Glomerular Filtration Rate (eGFR) is calculated using the 2020 CKD-EPI creatinine equation. This equation utilizes serum creatinine, sex, and age as parameters. The creatinine assay has traceable calibration to isotope dilution-mass spectrometry. Refer to KDIGO guidelines for clinical interpretation. In patients with unstable renal function, e.g. those with acute kidney injury, the eGFR may not accurately reflect actual GFR. Creatinine [Mass/Vol] 0.69 mg/dL Normal 0.58-0.96 [facility] Comment on above: Order Comment: Speci men Type: BLOOD SPECIMENOrdering Facility: [facility] Address: [address] [place] [address] Performed By: #### 3 084-1, 15564-0, CRET1 ####[facility] [id number] [address] [place] Creatinine and Glomerular filtration rate.predicted panel (S/P/Bld) 121 mL/min/1.73m??? Normal >=60 [facility] Comment on above: Order Comment: Speci men Type: BLOOD SPECIMENOrdering Facility: [facility] Address: [address] [place] [address] Result Comment: Shannon mated Glomerular Filtration Rate (eGFR) is calculated using the 2020 CKD-EPI creatinine equation. This equation utilizes serum creatinine, sex, and age as parameters. The creatinine assay has traceable calibration to isotope dilution-mass spectrometry. Refer to KDIGO guidelines for clinical interpretation. In patients with unstable renal function, e.g. those with acute kidney injury, the eGFR may not accurately reflect actual GFR. Performed By: #### 3 084-1, 88201-1, CRET1 ####[facility] [id number] [address] [place] Hepatic function 2000 panelO rdered By: Khalida Dyson on 05-29-2024 Albumin [Mass/Vol] 3.5 g/dL Low 3.9 - 4.9 g/dL [facility] ALP [Catalytic activity/Vol] 155 U/L High 34 - 123 U/L [facility] ALT [Catalytic activity/Vol] 10 U/L 7 - 38 U/L [facility] AST [Catalytic activity/Vol] 17 U/L 13 - 35 U/L [facility] Bilirubin [Mass/Vol] 0.2 mg/dL 0.2 - 1.3 mg/dL [facility] Bilirubin.conjugated [Mass/Vol] mg/dL NINF - 0.2 mg/dL [facility] Interpretation and review of laboratory results Abnormal [facility] Protein [Mass/Vol] 6.3 g/dL 6.3 - 8.0 g/dL [facility] Hepatic function 2000 panelo n 05-29-2024 Albumin [Mass/Vol] 3.5 g/dL Low 3.9-4.9 [facility] Comment on above: Order Comment: Speci men Type: BLOOD SPECIMENOrdering Facility: [facility] Address: [address] [place] [address] Performed By: #### 3 084-1, 38187-5, CRET1 ####[facility] [id number] [place] [address] [place] ALP [Catalytic activity/Vol] 155 U/L High 34-123 [facility] Comment on above: Order Comment: Speci men Type: BLOOD SPECIMENOrdering Facility: [facility] Address: [address] [place] [address] Performed By: #### 3 084-1, 58086-5, CRET1 ####[facility] [id number] [place] [address] [place] ALT [Catalytic activity/Vol] 10 U/L Normal 7-38 [facility] Comment on above: Order Comment: Speci men Type: BLOOD SPECIMENOrdering Facility: [facility] Address: [address] [place] [address] Performed By: #### 3 084-1, 09048-3, CRET1 ####[facility] [id number] [place] [address] [place] AST [Catalytic activity/Vol] 17 U/L Normal 13-35 [facility] Comment on above: Order Comment: Speci men Type: BLOOD SPECIMENOrdering Facility: [facility] Address: [address] [place] [address] Performed By: #### 3 084-1, 26402-2, CRET1 ####[facility] [id number] [place] [address] [place] Bilirubin [Mass/Vol] 0.2 mg/dL Normal 0.2-1.3 [facility] Comment on above: Order Comment: Speci men Type: BLOOD SPECIMENOrdering Facility: [facility] Address: [address] [place] [address] Performed By: #### 3 084-1, 98528-7, CRET1 ####[facility] [id number] [place] [address] [place] Bilirubin.conjugated [Mass/Vol] mg/dL Normal <0.2 [facility] Comment on above: Order Comment: Speci men Type: BLOOD SPECIMENOrdering Facility: [facility] Address: [address] [place] [address] Performed By: #### 3 084-1, 09116-8, CRET1 ####[facility]ITAL[facility]ANIA [id number] [place] [address] [place] Protein [Mass/Vol] 6.3 g/dL Normal 6.3-8.0 [facility] Comment on above: Order Comment: Speci men Type: BLOOD SPECIMENOrdering Facility: [facility] Address: [address] [place] [address] Performed By: #### 3 084-1, 68941-2, CRET1 ####[facility]IT[facility] [id number] [place] [address] [place] No Panel Informationon 05-29 Interpretation and review of laboratory results Normal [facility] Prot/Creat Uron 05-29-2024 Protein/Creatinine (U) [Mass ratio] 0.14 mg/mg Normal <0.15 [facility] Comment on above: Order Comment: Speci men Type: URINE SPECIMENOrdering Facility: [facility] Address: [address] [place] [address] Result Comment: Adul t Proteinuria Categories: <0.15 mg/mg is considered normal to mildly increased 0.15 - 0.50 mg/mg is considered moderately increased >0.50 mg/mg is considered severely increased KDIGO. (2013). KDIGO 2012 Clinical Practice Guideline for the Evaluation and Management of Chronic Kidney Disease. Official Journal of the International Society of Nephrology, 3(1), 1-150. Performed By: #### 2 890-2 ####[facility] [id number] [place] [address] [place] Protein/Creatinine (U) [Mass ratio]on 05-29-2024 Creatinine (U) [Mass/Vol] 122.0 mg/dL Normal 20.0-300.0 [facility] Comment on above: Order Comment: Speci men Type: URINE SPECIMENOrdering Facility: [facility] Address: [address] [place] [address] Performed By: #### 2 890-2 ####[facility] [id number] [place] [address] [place] Protein (U) [Mass/Vol] 17 mg/dL Normal 0-20 [facility] Comment on above: Order Comment: Speci men Type: URINE SPECIMENOrdering Facility: [facility] Address: [address] [place] [address] Performed By: #### 2 890-2 ####[facility] LABIA [id number] [place] [id number] [place] URIC ACIDon 05-29-2024 Urate [Mass/Vol] 5.8 mg/dL 2.5 - 6.6 mg/dL [facility] Urate SerPl-mCncon Urate [Mass/Vol] 5.8 mg/dL Normal 2.5-6.6 [facility] Comment on above: Order Comment: Speci men Type: BLOOD SPECIMENOrdering Facility: [facility] Address: [place] [address] Performed By: #### 3 084-1, 36933-5, CRET1 ####[facility] TIFF ALEGRIACLAYTONPARDEEP [id number] [address] OF [facility] CNPNon 05-27-2024 CNPN Telephone (OBGYWM) ---- PABLO ALARCON ([id number]) 1995 F T Date Time Provider Department 05/27/24 VIOLA SOMERS OBGYWMike During your visit today, we recorded the following information about you: Jocelyn Silvestre RN 05/27/2024 12:35 PM Signed 31w1d Patient called. She would like her induction on 07/02 at [facility]. She is also asking for an order for an [place] to monitor the baby's heart rate after discharge. States her insurance will cover this with a physician order. Recommended discussing this at her next visit. MOSHE Gonzalez Trisha, RN 06/02/2024 4:13 PM Signed Patient delivered today at [facility]. Negar Youssef RN Allergies As of Date: 05/27/2024 Noted Allergy Reaction DELETED: ACETAMINOPHEN 11/20/2017 16 - Unknown DELETED: DIPHENHYDRAMINE 11/20/2017 16 - Unknown GABAPENTIN 04/24/2024 2 - Rash DELETED: IBUPROFEN 11/20/2017 16 - Unknown SEASONAL ALLERGIES 12/12/2017 3 - Cough Date Reviewed: 05/26/2024 Reviewed by: Jocelyn Botello MD - Fully Assessed Reason for Visit: Induction Date [Other] Prescriptions as of 06/02/2024 - labetalol (TRANDATE) 300 mg tablet Take 2 tablets by mouth three times a day. - NIFEdipine XL (ADALAT CC) 60 mg 24 hr tablet Take 1 tablet by mouth two times a day. - aspirin, enteric coated (ASPIRIN, ENTERIC COATED) 81 mg EC tablet Take 1 tablet by mouth once daily. - famotidine (PEPCID AC) 20 mg tablet Take 1 tablet by mouth two times a day. - folic acid 1 mg tablet Take 3 tablets by mouth once daily. - sertraline (ZOLOFT) 50 mg tablet Take 50 mg by mouth once daily. Patient taking as needed because it makes her nauseated when she does take it - vit/iron fum/folic ac (RIGHT STEP VITAMINS ORAL) Take by mouth. Gummy - levETIRAcetam (KEPPRA) 500 mg tablet Take 1,000 mg by mouth two times a day. - fluticasone (FLONASE) 50 mcg/actuation nasal spray Use 1 [place] in each nostril once daily. Facility-Administer ed Medications as of 06/02/2024 - magnesium sulfate 20 gram/500mL iv - calcium gluconate 1 g injection - miSOPROStol 25 mcg pre-split tab(s) (CYTOTEC) - oxytocin injection (PITOCIN) - propofol infusion (DIPRIVAN) - famotidine injection (PEPCID) - lactated ringers iv infusion - propofol injection (DIPRIVAN) - succinylcholine injection (QUELICIN) - dexAMETHasone sodium phosphate injection (DECADRON) - ondansetron (PF) injection (ZOFRAN) - oxytocin 30 unit in LR 500 mL iv infusion (INDUCTION/AUGMENTA TION) (PITOCIN) - PHENYLephrine 10 mg in NaCl 0.9% 250 mL (MARK ANTHONY-SYNEPHRINE) - HYDROmorphone injection (DILAUDID) - PHENYLephrine injection (MARK ANTHONY-SYNEPHRINE) - sodium chloride 0.65 % 2 [place] - oxymetazoline 0.05 % 2 [place] (GENASAL) - levETIRAcetam 1,000 mg CUP (KEPPRA) - diphenhydrAMINE 25 mg injection (BENADRYL) - metoclopramide HCl 10 mg injection (REGLAN) - famotidine 20 mg tab(s) (PEPCID) - labetalol 600 mg tab(s) (TRANDATE) - aspirin, enteric coated 81 mg tab(s) - NIFEdipine ER 60 mg tab(S) (PROCARDIA XL) - acetaminophen 1,000 mg tab(s) (TYLENOL) - sodium citrate-citric acid 500-334 mg/5 mL 30 mL oral liquid (BICITRA) - metoclopramide HCl 10 mg injection (REGLAN) - NaCl 0.9% iv flush bag - calcium carbonate 1,000 mg chewable tab(s) (TUMS) - vitamin with folic acid 1 mg 1 tablet - ondansetron (PF) 4 mg injection (ZOFRAN) - acetaminophen 1,000 mg tab(s) (TYLENOL) - azithromycin 500 mg in D5W 250 mL Vial-Bag (ZITHROMAX) Problem List As Of Date 05/27/2024 Noted Resolved Dislocation of Elbow [832] 10/11/2003 02/21/2010 IDIOPATHIC SCOLIOSIS [M41.20] 01/30/2005 Neurofibromatosis, type 1 (von Recklinghausen's* MIGRAINE NOS W/O MENTN INTRACTABLE [G43.909] 02/26/2006 BRAIN NEOPLASM NOS [D49.6] 10/14/2007 Dislocated Elbow [S53.106A] 02/21/2010 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] Learning disability [F81.9] Adjustment disorder [F43.20] 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 Chronic hypertension affecting [O10.9*04/24/2024 History of seizures [Z87.898] 04/24/2024 History of nicotine vaping [Z87.891] 04/24/2024 Anxiety and depression [F41.9, F32.A] 04/24/2024 History of miscarriage [Z87.59] 04/29/2024 Supervision of other high risk pregnancies, sec*04/29/2024 Arnold-Chiari malformation (HCC) [Q07.00] 04/29/2024 Poor historian [Z78.9] 04/29/2024 Abnormal ultrasound [O28.3] 05/12/2024 abnormality affecting management of mothe*05/18/2024 cardiac anomaly complicating , a*05/26/2024 Rubella non-immune status, antepartum [O09.899,* Encounter Status:Closed by NEGAR YOUSSEF on 06/02/[facility]N Tele[facility] (SHIRA) ---- PABLO ALARCON ([id number]) 1995 F T Date Time Provider Department 05/26/24 LASHELL MCCRACKEN During your visit today, we recorded the following information about you: Lashell Mccracken [facility] 05/26/2024 9:28 AM Signed Attempted to reach Ms. Alarcon by phone but it went straight to betaworksil. Sent text message letting her know that I received confirmation from [employer] that she would have a zero dollar out of pocket for the MaterniT Genome test we had discussed given the presence of the cardiac malformation. An order has been placed and I let her know that she can go to any [facility] lab for the blood draw. Results will be called to her when available as she said MyChart messages are sometimes difficult for her. Lashell Mccracken, MS, [facility] [place] Licensed Genetic Counselor [phone] Allergies As of Date: 05/26/2024 Noted Allergy Reaction ACETAMINOPHEN 11/20/2017 16 - Unknown DIPHENHYDRAMINE 11/20/2017 16 - Unknown GABAPENTIN 04/24/2024 2 - Rash IBUPROFEN 11/20/2017 16 - Unknown SEASONAL ALLERGIES 12/12/2017 3 - Cough Date Reviewed: 05/26/2024 Reviewed by: Sudhir Servin RN - Fully Assessed Reason for Visit: Orders [481] Cmt: MaterniT Genome Prescriptions as of 05/26/2024 - NIFEdipine XL (ADALAT CC) 60 mg 24 hr tablet Take 1 tablet by mouth two times a day. - aspirin, enteric coated (ASPIRIN, ENTERIC COATED) 81 mg EC tablet Take 1 tablet by mouth once daily. - famotidine (PEPCID AC) 20 mg tablet Take 1 tablet by mouth two times a day. - labetalol (TRANDATE) 200 mg tablet Take 2 tablets by mouth three times a day. - folic acid 1 mg tablet Take 3 tablets by mouth once daily. - sertraline (ZOLOFT) 50 mg tablet Take 50 mg by mouth once daily. Patient taking as needed because it makes her nauseated when she does take it - vit/iron fum/folic ac (RIGHT STEP VITAMINS ORAL) Take by mouth. Gummy - levETIRAcetam (KEPPRA) 500 mg tablet Take 1,000 mg by mouth two times a day. - fluticasone (FLONASE) 50 mcg/actuation nasal spray Use 1 [place] in each nostril once daily. 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 Chronic hypertension affecting [O10.9*04/24/2024 History of seizures [Z87.898] 04/24/2024 History of nicotine vaping [Z87.891] 04/24/2024 Anxiety and depression [F41.9, F32.A] 04/24/2024 History of miscarriage [Z87.59] 04/29/2024 Supervision of other high risk pregnancies, sec*04/29/2024 Arnold-Chiari malformation (HCC) [Q07.00] 04/29/2024 Poor historian [Z78.9] 04/29/2024 Abnormal ultrasound [O28.3] 05/12/2024 abnormality affecting management of mothe*05/18/2024 Encounter Status:Closed by LASHELL MCCRACKEN on 05/26/24 Normal [facility] Biophysical profile.lisandra dy movement USon 05-26-2024 [facility] Radiology Study observation (narrative) Nereyda monson [facility] MATERNIT GENOMEon 05-26-2024 1p36 del risk Dosage of chromosome-specific cfDNA Ql (Plasma cell-free+WBC DNA) [Interp] Negative Normal [facility] Comment on above: Order Comment: Speci men Type: BLOOD SPECIMENOrdering Facility: [facility] Address: [address] [place] [address] Performed By: #### M ATGEN ####[facility] LABCLIA [id number] [place] [address] 22q11.2 del risk Dosage of chromosome-specific cfDNA Ql (Plasma cell-free+WBC DNA) [Interp] Negative Normal [facility] Comment on above: Order Comment: Speci men Type: BLOOD SPECIMENOrdering Facility: [facility] Address: [address] [place] [address] Performed By: #### M ATGEN ####[facility] LABCLIA [id number] [place] [address] 5P15 DELETION Negative Normal [facility] Comment on above: Order Comment: Speci men Type: BLOOD SPECIMENOrdering Facility: [facility] Address: [address] [place] [address] Performed By: #### M ATGEN ####[facility] LABCLIA [id number] [place] [address] Cell-free DNA./Cell-free DNA.total Dosage of chromosome-specific cfDNA (cfDNA) [Molar fraction] 30% Normal [facility] Comment on above: Order Comment: Speci men Type: BLOOD SPECIMENOrdering Facility: [facility] Address: [address] [place] [address] Performed By: #### M ATGEN ####[facility] LABCLIA [id number] [place] [address] Chr 13+18+21+X+Y aneuploidy Dosage of chromosome-specific cfDNA Ql (cfDNA) Negative Normal [facility] Comment on above: Order Comment: Speci men Type: BLOOD SPECIMENOrdering Facility: [facility] Address: [address] [place] [address] Result Comment: Feta l sex consistent with male Performed By: #### M ATGEN ####[facility] LABCLIA [id number] [place] [address] Chr 21 trisomy Dosage of chromosome-specific cfDNA Ql (cfDNA) Negative Normal [facility] Comment on above: Order Comment: Speci men Type: BLOOD SPECIMENOrdering Facility: [facility] Address: [address] [place] [address] Performed By: #### M ATGEN ####[facility] LABCLIA [id number] [place] [address] Chr X and Y aneuploidy risk Sequencing Ql (cfDNA) [Interp] Negative Normal [facility] Comment on above: Order Comment: Speci men Type: BLOOD SPECIMENOrdering Facility: [facility] Address: [address] [place] [address] Result Comment: Nega tive Negative Performed By: #### M ATGEN ####[facility] LABCLIA [id number] [place] [address] Chromosome region 11q23 del Sequencing Ql (cfDNA) Negative Normal [facility] Comment on above: Order Comment: Speci men Type: BLOOD SPECIMENOrdering Facility: [facility] Address: [address] [place] [address] Performed By: #### M ATGEN ####[facility] LABCLIA [id number] [place] [address] Chromosome region 15q11 del Sequencing Ql (cfDNA) Negative Normal [facility] Comment on above: Order Comment: Speci men Type: BLOOD SPECIMENOrdering Facility: [facility] Address: [address] [place] [address] Performed By: #### M ATGEN ####[facility] LABCLIA [id number] [place] [address] Chromosome region 4p16 del Sequencing Ql (cfDNA) Negative Normal [facility] Comment on above: Order Comment: Speci men Type: BLOOD SPECIMENOrdering Facility: [facility] Address: [address] [place] [address] Performed By: #### M ATGEN ####[facility] LABCLIA [id number] [place] [address] Chromosome region 8q24 del Sequencing Ql (cfDNA) Negative Normal [facility] Comment on above: Order Comment: Speci men Type: BLOOD SPECIMENOrdering Facility: [facility] Address: [address] [place] [address] Performed By: #### M ATGEN ####[facility] LABCLIA [id number] [place] [address] Citation Laurent (Reference lab test) Comment Normal [facility] Comment on above: Order Comment: Speci men Type: BLOOD SPECIMENOrdering Facility: [facility] Address: [address] [place] [address] Result Comment: 1. P javier STANTON, et al. Nadine Med. 2011;13(11):913-920. 2. Rod Hooker, et al. International Society of Diagnosis Annual Meeting. Jan 2015 3. Fernando STANTON, et al. Nadine Med. 2012;14(3):296-305. 4. Carlito AG et al. Prenat Diag. 2013;33(6):591-597. 5. Carlito AG, et al. [place] Society of Human Genetics. May 2012. 6. Benitez Palencia, et al. Clin Chem. 2015 Oct;61(4):608-616. 7. ACOG/SMFM Practice Bulletin No. 226, Apr 2020. Performed By: #### M ATGEN ####[facility] LABCLIA [id number] [place] [address] GAIN LOSSES > = 7MB Negative Normal [facility] Comment on above: Order Comment: Speci men Type: BLOOD SPECIMENOrdering Facility: [facility] Address: [address] [place] [address] Performed By: #### M ATGEN ####[facility] LABCLIA [id number] [place] [address] Gestational age Estimated from conception date Comment Normal [facility] Comment on above: Order Comment: Speci men Type: BLOOD SPECIMENOrdering Facility: [facility] Address: [address] [place] [address] Result Comment: Sing leton Gestation Performed By: #### M ATGEN ####[facility] LABCLIA [id number] [place] [id number] GESTATIONALAGE AGE > OR = 9W Comment Normal [facility] Comment on above: Order Comment: Speci men Type: BLOOD SPECIMENOrdering Facility: [facility] Address: [address] [place] [address] Result Comment: Not Provided Performed By: #### M ATGEN ####[facility] LABCLIA [id number] [place] [id number] Laboratory comment Luarent (Report) Comment Normal [facility] Comment on above: Order Comment: Speci men Type: BLOOD SPECIMENOrdering Facility: [facility] Address: [address] [place] [address] Result Comment: The MaterniT(R) GENOME laboratory-developed test (LDT) analyzes the relative amount of chromosomal material across the genome in circulating cell-free DNA from a maternal blood sample. The test is indicated for use in women with myers pregnancies at risk of chromosomal and/or subchromosomal abnormalities. This test is used for screening purposes and not diagnostic. Clinical correlation is recommended. Performed By: #### M ATGEN ####[facility] LABCLIA [id number] [place] [address] director of publications name Nom (Provider) Comment Normal [facility] Comment on above: Order Comment: Speci men Type: BLOOD SPECIMENOrdering Facility: [facility] Address: [address] [place] [address] Result Comment: Dariusz Barragan MD, PhD, Director, [employer] Performed By: #### M ATGEN ####[facility] LABCLIA [id number] [place] [id number] LIMITATIONS OF THE TEST Comment Normal [facility] Comment on above: Order Comment: Speci men Type: BLOOD SPECIMENOrdering Facility: [facility] Address: [address], [place] [address] Result Comment: Nikolai mora the results of these tests are highly reliable, discordant results, including inaccurate sex prediction, may occur due to placental, maternal, or mosaicism or neoplasm; vanishing twin; prior maternal organ transplant; or other causes. These tests are screening tests and not diagnostic; they do not replace the accuracy and precision of diagnosis with CVS or amniocentesis. A patient with a positive test result should be referred for genetic counseling and offered invasive diagnosis for confirmation of test results.[7] The results of this testing, including the benefits and limitations, should be discussed with a qualified healthcare provider. management decisions, including termination of the , should not be based on the results of these tests alone. The healthcare provider is responsible for the use of this information in the management of their patient. Sex chromosomal aneuploidies are not reportable for known multiple gestations. A negative result does not ensure an unaffected nor does it exclude the possibility of other chromosomal abnormalities or defects which are not a part of these tests. An uninformative result may be reported, the causes of which may include, but are not limited to, insufficient sequencing coverage, noise or artifacts in the region, amplification or sequencing bias, or insufficient fraction. These tests are not intended to identify pregnancies at risk for neural tube defects or ventral wall defects. Testing for whole chromosome abnormalities (including sex chromosomes) and for subchromosomal abnormalities could lead to the potential discovery of both and maternal genomic abnormalities that could have major, minor, or no, clinical significance. Evaluating the significance of a positive or a non-reportable result may involve both invasive testing and additional studies on the mother. Such investigations may lead to a diagnosis of maternal chromosomal or subchromosomal abnormalities, which on occasion may be associated with benign or malignant maternal neoplasms. These tests may not accurately identify triploidy, balanced rearrangements, or the precise location of subchromosomal duplications or deletions; these may be detected by diagnosis with CVS or amniocentesis. The ability to report results may be impacted by maternal BMI, maternal weight, maternal systemic lupus erythematosus (SLE) and/or by certain pharmaceutical agents such as low molecular weight heparin (for example: Lovenox(R), Xaparin(R), Clexane(R) and Fragmin(R)). Performed By: #### M ATGEN ####[facility] LABCLIA [id number] [place] [address] Monosomy X risk Dosage of chromosome-specific cfDNA Ql (Plasma cell-free+WBC DNA) [Interp] Negative Normal [facility] Comment on above: Order Comment: Speci men Type: BLOOD SPECIMENOrdering Facility: [facility] Address: [address] [place] [address] Performed By: #### M ATGEN ####[facility] LABCLIA [id number] [place] [id number] NOTE Comment Normal [facility] Comment on above: Order Comment: Speci men Type: BLOOD SPECIMENOrdering Facility: [facility] Address: [address] [place] [address] Result Comment: See Notes [employer] is a subsidiary of [employer], using the brand [employer]. This test was developed and its performance characteristics determined by [employer]. It has not been cleared or approved by the Food and Drug Administration. This laboratory is certified under the Clinical Laboratory Improvement Amendments (CLIA) as qualified to perform high complexity clinical laboratory testing and accredited by the College [employer] (CAP). Performed By: #### M ATGEN ####[facility] LABCLIA [id number] [place] [address] OTHER ANEUPLOIDIES Negative Normal [facility] Comment on above: Order Comment: Speci men Type: BLOOD SPECIMENOrdering Facility: [facility] Address: [address] [place] [address] Performed By: #### M ATGEN ####[facility] LABCLIA [id number] [place] [id number] PERFORMANCE CHARACTERISTICS Note Normal [facility] Comment on above: Order Comment: Speci men Type: BLOOD SPECIMENOrdering Facility: [facility] Address: [address] [place] [address] Result Comment: !Deletion Region (syndrome) ! Size(Mb)* ! Med.Size(Mb)+! ! ---------! !Genome-wide ! NA ! NA ! ! ! !22q11 (Carlos) ! 0.8-3.6 ! 2.6 ! ! ! !15q11 (Prader-Willi/Angelman) ! 1.2-15.8 ! 5.1 ! ! ! !11q23 (Cynthia) ! 1.3-15.7 ! 9 ! ! ! !8q24 (Kristy) ! 7.6-8.8 ! 7.9 ! ! ! !5p15 (Boni) ! 1.5-17.8 ! 6 ! ! ! !4p16 (Edith) ! 1.1-17.3 ! 4.2 ! ! ! !1p36 ! 1.6-13.3 ! 3.8 ! ! ! !Deletion Region (syndrome) ! Est.Sens# !Est.Spec##! ! ! !Genome-wide ! 96% (61->99%) ! >99.9% ! ! ! !22q11 (DiGeorge) ! >74% (17-94%) ! >99.9% ! ! ! !15q11 (Prader-Willi/Angelman)! >59% (16-74%) ! >99.9% ! ! ! !11q23 (Cynthia) ! >87% (57->99%) ! >99.9% ! ! ! !8q24 (Kristy) ! >97% (80->99%) ! >99.9% ! ! ! !5p15 (Kimberly-duvarghese) ! >83% (48-96%) ! >99.9% ! ! ! !4p16 (Edith) ! >73% (37-91%) ! >99.9% ! ! ! !1p36 ! >51% (13-81%) ! >99.9% ! ! ! * As reported in ISCA database nstd37 [https://www.ncbi.nlm.nih.gov/dbvar/studies/nstd37/ ] + Median Size(Mb) # Estimated Sensitivity. Sensitivity estimated across the observed size distribution of each syndrome [per ISCA database nstd37] and across the range of fractions observed in routine clinical NIPT. Figures in parentheses indicate upper and lower estimates for sensitivity. Actual sensitivity can also be influenced by other factors such as the size of the event, total sequence counts, amplification bias, or sequence bias. ## Estimated Specificity Performed By: #### M ATGEN ####[facility] LABCLIA [id number] [place] [address] POSITIVE PREDICTIVE VALUE N/A Normal [facility] Comment on above: Order Comment: Speci men Type: BLOOD SPECIMENOrdering Facility: [facility] Address: [address] [place] [address] Performed By: #### M ATGEN ####[facility] LABCLIA [id number] [place] [address] Reference Lab Test Method Comment Normal [facility] Comment on above: Order Comment: Speci men Type: BLOOD SPECIMENOrdering Facility: [facility] Address: [address] [place] [address] Result Comment: See Notes Circulating cell-free DNA was purified from the plasma component of anti-coagulated maternal whole blood. A genomic DNA library was prepared to determine chromosomal representation by massively parallel sequencing.[1] Gain or loss of chromosomal material >=7 Mb was evaluated across the entire genome. Select chromosomal regions (1p, 4p, 5p, 8q, 11q, 15q, and 22q) associated with known syndromes were also evaluated. sex was assessed by Y chromosome representation. Performed By: #### M ATGEN ####[facility] LABCLIA [id number] [place] [address] Sex Dosage of chromosome-specific cfDNA Nom (cfDNA) Comment Normal [facility] Comment on above: Order Comment: Speci men Type: BLOOD SPECIMENOrdering Facility: [facility] Address: [address] [place] [address] Result Comment: Cons istent with male Performed By: #### M ATGEN ####[facility] LABCLIA [id number] [place] [address] Test performance information Laurent (Unsp spec) Comment Normal [facility] Comment on above: Order Comment: Speci men Type: BLOOD SPECIMENOrdering Facility: [facility] Address: [address] [place] [address] Result Comment: The MaterniT(R) GENOME test utilizes the same proprietary technology as the MaterniT(R) 21 PLUS test, with deeper sequencing. In a clinical study using 448 patient samples to evaluate concordance, the MaterniT(R) GENOME test was equivalent in performance for the analysis of trisomy 21, trisomy 18, trisomy 13, sex chromosome aneuploidies and sex classification, to the MaterniT(R) 21 PLUS test.[2] The MaterniT(R) 21 PLUS test performance has previously been validated and published extensively.[1],[3-6] The MaterniT(R) GENOME test performance characteristics for the detection of genome-wide gain or loss events >=7 Mb, and select microdeletions below 7 Mb were established using in silico analytic methods, and validated using test samples comprised of genomic DNA mixed with plasma from non- females.[2] Sensitivity for genome-wide events greater than or equal to 7 Mb was determined to be 95.9%. Sensitivities for select microdeletions varied by size of the event and fraction. Specificity for genome-wide events and select microdeletions was established using 1060 maternal plasma DNA samples and was determined to be >99.9%. The negative predictive value for trisomy 21, 18 and 13 is greater than 99%. Additional details can be found in the Performance Characteristics tables. Performed By: #### M ATGEN ####[facility] LABCLIA [id number] [place] [address] Trisomy 13 risk Dosage of chromosome-specific cfDNA Ql (cfDNA) [Interp] Negative Normal [facility] Comment on above: Order Comment: Speci men Type: BLOOD SPECIMENOrdering Facility: [facility] Address: [address] [place] [address] Performed By: #### M ATGEN ####[facility] LABCLIA [id number] [place] [id number] Trisomy 18 risk Dosage of chromosome-specific cfDNA Ql (Plasma cell-free+WBC DNA) [Interp] Negative Normal [facility] Comment on above: Order Comment: Speci men Type: BLOOD SPECIMENOrdering Facility: [facility] Address: [address] [place] [address] Performed By: #### M ATGEN ####[facility] LABCLIA [id number] [place] [address] [facility] CNPN Telephone (OBGYWM) ---- PABLO ALARCON ([id number]) 1995 F T Date Time Provider Department 05/25/24 MICHELE GARLANDWMike During your visit today, we recorded the following information about you: Britney Valdivia RN 05/25/2024 11:45 AM Signed Patient 30w6d is scheduled for BPP tomorrow. Please file pended order. MOSHE Cortez Sara, MD 05/25/2024 3:00 PM Signed filed Allergies As of Date: 05/25/2024 Noted Allergy Reaction ACETAMINOPHEN 11/20/2017 16 - Unknown DIPHENHYDRAMINE 11/20/2017 16 - Unknown GABAPENTIN 04/24/2024 2 - Rash IBUPROFEN 11/20/2017 16 - Unknown SEASONAL ALLERGIES 12/12/2017 3 - Cough Date Reviewed: 05/18/2024 Reviewed by: Karma Phillips RN - Fully Assessed Reason for Visit: Orders [681] Primary Visit Diagnosis:Arnold-Ch iari malformation (HCC) [Q07.00] Other Visit Diagnosis:Supervisi on of other high risk pregnancies, second trimester [O09.892] [facility] [[id number] Order #: [id number]: 1 STANDING Prescriptions as of 05/25/2024 - NIFEdipine XL (ADALAT CC) 60 mg 24 hr tablet Take 1 tablet by mouth two times a day. - aspirin, enteric coated (ASPIRIN, ENTERIC COATED) 81 mg EC tablet Take 1 tablet by mouth once daily. - famotidine (PEPCID AC) 20 mg tablet Take 1 tablet by mouth two times a day. - labetalol (TRANDATE) 200 mg tablet Take 2 tablets by mouth three times a day. - folic acid 1 mg tablet Take 3 tablets by mouth once daily. - sertraline (ZOLOFT) 50 mg tablet Take 50 mg by mouth once daily. Patient taking as needed because it makes her nauseated when she does take it - vit/iron fum/folic ac (RIGHT STEP VITAMINS ORAL) Take by mouth. Gummy - levETIRAcetam (KEPPRA) 500 mg tablet Take 1,000 mg by mouth two times a day. - fluticasone (FLONASE) 50 mcg/actuation nasal spray Use 1 [place] in each nostril once daily. 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 Chronic hypertension affecting [O10.9*04/24/2024 History of seizures [Z87.898] 04/24/2024 History of nicotine vaping [Z87.891] 04/24/2024 Anxiety and depression [F41.9, F32.A] 04/24/2024 History of miscarriage [Z87.59] 04/29/2024 Supervision of other high risk pregnancies, sec*04/29/2024 Arnold-Chiari malformation (HCC) [Q07.00] 04/29/2024 Poor historian [Z78.9] 04/29/2024 Abnormal ultrasound [O28.3] 05/12/2024 abnormality affecting management of mothe*05/18/2024 Encounter Status:Closed by BRITNEY VALDIVIA on 05/25/24 Normal [facility] CBC panel Auto (Bld)on 05-18 Erythrocyte distribution width (RBC) [Ratio] 14.2 % 11.5 - 15.0 % [facility] Hematocrit (Bld) [Volume fraction] 36.0 % 36.0 - 46.0 % [facility] Hemoglobin (Bld) [Mass/Vol] 10.8 g/dL Low 11.5 - 15.5 g/dL [facility] Interpretation and review of laboratory results Abnormal [facility] MCH (RBC) [Entitic mass] 25.8 pg Low 26.0 - 34.0 pg [facility] MCHC (RBC) [Mass/Vol] 30.0 g/dL Low 30.5 - 36.0 g/dL [facility] MCV (RBC) [Entitic vol] 85.9 fL 80.0 - 100.0 fL [facility] Nucleated RBC (Bld) [#/Vol] NINF [facility] Platelet mean volume (Bld) [Entitic vol] 12.2 fL 9.0 - 12.7 fL [facility] Platelets (Bld) [#/Vol] 264 10*3/uL [facility] RBC (Bld) [#/Vol] 4.19 10*6/uL 3.90 - 5.2 0 m/uL [facility] WBC (Bld) [#/Vol] 16.08 10*3/uL [facility] Erythrocyte distribution width (RBC) [Ratio] 14.2 % Normal 11.5-15.0 [facility] Comment on above: Order Comment: Speci men Type: BLOOD SPECIMENOrdering Facility: [facility] Address: [address] [place] [address] Performed By: #### 5 8410-2 ####[facility][1] LABORATORYCLIA [id number] [address] OF [facility] Hematocrit (Bld) [Volume fraction] 36.0 % Normal 36.0-46.0 [facility] Comment on above: Order Comment: Speci men Type: BLOOD SPECIMENOrdering Facility: [facility] Address: [address] [place] [address] Performed By: #### 5 8410-2 ####[facility][1] LABORATORYCLIA [id number] [address] OF [facility] Hemoglobin (Bld) [Mass/Vol] 10.8 g/dL Low 11.5-15.5 [facility] Comment on above: Order Comment: Speci men Type: BLOOD SPECIMENOrdering Facility: [facility] Address: [address] [place] [address] Performed By: #### 5 8410-2 ####[facility][1] LABORATORYCLIA [id number] [address] MCH (RBC) [Entitic mass] 25.8 pg Low 26.0-34.0 [facility] Comment on above: Order Comment: Speci men Type: BLOOD SPECIMENOrdering Facility: [facility] Address: [address] [place] [address] Performed By: #### 5 8410-2 ####[facility][1] LABORATORYCLIA [id number] [address] [place] MCHC (RBC) [Mass/Vol] 30.0 g/dL Low 30.5-36.0 [facility] Comment on above: Order Comment: Speci men Type: BLOOD SPECIMENOrdering Facility: [facility] Address: [address] [place] [address] Performed By: #### 5 8410-2 ####[facility][1] LABORATORYCLIA [id number] [address] [facility] MCV (RBC) [Entitic vol] 85.9 fL Normal 80.0-100.0 [facility] Comment on above: Order Comment: Speci men Type: BLOOD SPECIMENOrdering Facility: [facility] Address: [address] [place] [address] Performed By: #### 5 8410-2 ####[facility][1] LABORATORYCLIA [id number] [address] [place] Nucleated RBC (Bld) [#/Vol] 10*3/uL Normal <0.01 [facility] Comment on above: Order Comment: Speci men Type: BLOOD SPECIMENOrdering Facility: [facility] Address: [address] [place] [address] Performed By: #### 5 8410-2 ####[facility][1] LABORATORYCLIA [id number] [address] [place] Platelet mean volume (Bld) [Entitic vol] 12.2 fL Normal 9.0-12.7 [facility] Comment on above: Order Comment: Speci men Type: BLOOD SPECIMENOrdering Facility: [facility] Address: [address] [place] [address] Performed By: #### 5 8410-2 ####[facility][1] LABORATORYCLIA [id number] [address] [place] Platelets (Bld) [#/Vol] 264 10*3/uL Normal 150-400 [facility] Comment on above: Order Comment: Speci men Type: BLOOD SPECIMENOrdering Facility: [facility] Address: [address] [place] [address] Performed By: #### 5 8410-2 ####[facility][1] LABORATORYCLIA [id number] [address] [place] RBC (Bld) [#/Vol] 4.19 10*6/uL Normal 3.90-5.20 [facility] Comment on above: Order Comment: Speci men Type: BLOOD SPECIMENOrdering Facility: [facility] Address: [address] [place] [address] Performed By: #### 5 8410-2 ####[facility][1] LABORATORYCLIA [id number] [place] [address] [place] WBC (Bld) [#/Vol] 16.08 10*3/uL High 3.70-11.00 [facility] Comment on above: Order Comment: Speci men Type: BLOOD SPECIMENOrdering Facility: [facility] Address: [address] [place] [address] Performed By: #### 5 8410-2 ####[facility][1] LABORATORYCLIA [id number] [place] [address] [facility] CNPNon 05-18-2024 [facility] Telephone ([facility]) ---- PABLO ALARCON ([id number]) 1995 F T Date Time Provider Department 05/18/24 TOYA WILKERSON [facility] During your visit today, we recorded the following information about you: Toya Wilkerson RN 05/18/2024 3:02 PM Signed In to meet Pablo and Geo at the request of Dr Castillo to introduce myself as healthcare analyst and the [facility]. Discussion of the services offered including support, education, coordination of care and appointment scheduling. I helped her create a My Chart account and instructed her on the use. Pablo was very appreciative my assistanceMy contact information was provided and Pablo was invited to call with any questions or concerns. Also reviewed the multi-disciplinary team meetings in which patient's case will be discussed to optimize care planning. Patient's questions answered to the best of my ability. 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 - aspirin, enteric coated (ASPIRIN, ENTERIC COATED) 81 mg EC tablet Take 1 tablet by mouth once daily. - famotidine (PEPCID AC) 20 mg tablet Take 1 tablet by mouth two times a day. - labetalol (TRANDATE) 200 mg tablet Take 2 tablets by mouth three times a day. - folic acid 1 mg tablet Take 3 tablets by mouth once daily. - sertraline (ZOLOFT) 50 mg tablet Take 50 mg by mouth once daily. Patient taking as needed because it makes her nauseated when she does take it - vit/iron fum/folic ac (RIGHT STEP VITAMINS ORAL) Take by mouth. Gummy - levETIRAcetam (KEPPRA) 500 mg tablet Take 1,000 mg by mouth two times a day. - fluticasone (FLONASE) 50 mcg/actuation nasal spray Use 1 [place] in each nostril once daily. 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 Chronic hypertension affecting [O10.9*04/24/2024 History of seizures [Z87.898] 04/24/2024 History of nicotine vaping [Z87.891] 04/24/2024 Anxiety and depression [F41.9, F32.A] 04/24/2024 History of miscarriage [Z87.59] 04/29/2024 Supervision of other high risk pregnancies, sec*04/29/2024 Arnold-Chiari malformation (HCC) [Q07.00] 04/29/2024 Poor historian [Z78.9] 04/29/2024 Abnormal ultrasound [O28.3] 05/12/2024 abnormality affecting management of mothe*05/18/2024 Encounter Status:Closed by TOYA WILKERSON on 05/18/24 Normal [facility] Comprehensive metabolic 2000 panelon 05-18-2024 Albumin [Mass/Vol] 3.5 g/dL Low 3.9-4.9 [facility] Comment on above: Order Comment: Speci men Type: BLOOD SPECIMENOrdering Facility: [facility] Address: [address] [place] [address] Performed By: #### 2 4323-8 ####[facility][1] LABORATORYCLIA [id number] [place] [address] [place] ALP [Catalytic activity/Vol] 132 U/L High 34-123 [facility] Comment on above: Order Comment: Speci men Type: BLOOD SPECIMENOrdering Facility: [facility] Address: [address] [place] [address] Performed By: #### 2 4323-8 ####[facility][1] LABORATORYCLIA [id number] [place] [address] [place] ALT With P-5'-P [Catalytic activity/Vol] 8 U/L Normal 7-38 [facility] Comment on above: Order Comment: Speci men Type: BLOOD SPECIMENOrdering Facility: [facility] Address: [address] [place] [address] Performed By: #### 2 4323-8 ####[facility][1] LABORATORYCLIA [id number] [place] [address] [place] Anion gap [Moles/Vol] 12 mmol/L Normal 8-15 [facility] Comment on above: Order Comment: Speci men Type: BLOOD SPECIMENOrdering Facility: [facility] Address: [address] [place] [address] Performed By: #### 2 4323-8 ####[facility] LABORATORYCLIA [id number] [place] [address] [place] AST With P-5'-P [Catalytic activity/Vol] 17 U/L Normal 13-35 [facility] Comment on above: Order Comment: Speci men Type: BLOOD SPECIMENOrdering Facility: [facility] Address: [address] [place] [address] Performed By: #### 2 4323-8 ####[facility][1] LABORATORYCLIA [id number] [place] [address] [place] Bilirubin [Mass/Vol] 0.2 mg/dL Normal 0.2-1.3 [facility] Comment on above: Order Comment: Speci men Type: BLOOD SPECIMENOrdering Facility: [facility] Address: [address] [place] [address] Performed By: #### 2 4323-8 ####[facility][1] LABORATORYCLIA [id number] [place] [address] [place] Calcium [Mass/Vol] 8.8 mg/dL Normal 8.5-10.2 [facility] Comment on above: Order Comment: Speci men Type: BLOOD SPECIMENOrdering Facility: [facility] Address: [address] [place] [address] Performed By: #### 2 4323-8 ####[facility][1] LABORATORYCLIA [id number] [place] [address] [place] Chloride [Moles/Vol] 104 mmol/L Normal 98-107 [facility] Comment on above: Order Comment: Speci men Type: BLOOD SPECIMENOrdering Facility: [facility] Address: [address] [place] [address] Performed By: #### 2 4323-8 ####[facility] LABORATORYCLIA [id number] [place] [address] [place] CO2 [Moles/Vol] 21 mmol/L Low 22-30 [facility] Comment on above: Order Comment: Speci men Type: BLOOD SPECIMENOrdering Facility: [facility] Address: [address] [place] [address] Performed By: #### 2 4323-8 ####[facility] CARMELCLIA [id number] [address] Creatinine [Mass/Vol] 0.66 mg/dL Normal 0.58-0.96 [facility] Comment on above: Order Comment: Corimanny mckeon Type: BLOOD SPECIMENOrdering Facility: [facility] Address: [address] [place] [address] Performed By: #### 2 4323-8 ####[facility][1] LABORATORYCLIA [id number] [address] Creatinine and Glomerular filtration rate.predicted panel (S/P/Bld) 123 mL/min/1.73m??? Normal >=60 [facility] Comment on above: Order Comment: Marisa mckeon Type: BLOOD SPECIMENOrdering Facility: [facility] Address: [address] [place] [address] Result Comment: Shannon mated Glomerular Filtration Rate (eGFR) is calculated using the 2020 CKD-EPI creatinine equation. This equation utilizes serum creatinine, sex, and age as parameters. The creatinine assay has traceable calibration to isotope dilution-mass spectrometry. Refer to KDIGO guidelines for clinical interpretation. In patients with unstable renal function, e.g. those with acute kidney injury, the eGFR may not accurately reflect actual GFR. Performed By: #### 2 4323-8 ####[facility][1] LABORATORYCLIA [id number] [address] Glucose [Mass/Vol] 76 mg/dL Normal 74-99 [facility] Comment on above: Order Comment: Marisa mckeon Type: BLOOD SPECIMENOrdering Facility: [facility] Address: [address] [place] [address] Result Comment: The [place] Diabetes Association (ADA) provides guidance for cutoff values for fasting glucose and random glucose. The ADA defines fasting as no caloric intake for at least 8 hours. Fasting plasma glucose results between 100 to 125 [...] Standards of Medical Care in Diabetes 2016, [place] Diabetes Association. Diabetes Care. 2016.39(Suppl 1). Performed By: #### 2 4323-8 ####[facility][1] LABORATORYCLIA [id number] [place] [address] [place] Potassium [Moles/Vol] 4.2 mmol/L Normal 3.7-5.1 [facility] Comment on above: Order Comment: Marisa mckeon Type: BLOOD SPECIMENOrdering Facility: [facility] Address: [address] [place] [address] Performed By: #### 2 4323-8 ####[facility][1] LABORATORYCLIA [id number] [place] [address] [place] Protein [Mass/Vol] 6.6 g/dL Normal 6.3-8.0 [facility] Comment on above: Order Comment: Marisa mckeon Type: BLOOD SPECIMENOrdering Facility: [facility] Address: [address] [place] [address] Performed By: #### 2 4323-8 ####[facility][1] LABORATORYCLIA [id number] [place] [address] [place] Sodium [Moles/Vol] 137 mmol/L Normal 136-144 [facility] Comment on above: Order Comment: Corii mike Type: BLOOD SPECIMENOrdering Facility: [facility] Address: [address] [place] [address] Performed By: #### 2 4323-8 ####[facility][1] LABORATORYCLIA [id number] [place] [address] [place] Urea nitrogen [Mass/Vol] 6 mg/dL Low 7-21 [facility] Comment on above: Order Comment: Marisa mckeon Type: BLOOD SPECIMENOrdering Facility: [facility] Address: [address] [place] [address] Performed By: #### 2 4323-8 ####[facility][1] LABORATORYCLIA [id number] [place] [address] [facility] FETALon 05-18-2024 ++ ++ [facility] Echocardiogram Report ++ ++ NAME: MS. PABLO ALARCON : 1995 PT ID#: [id number] Age: 28 years Sex: F STUDY DATE: 05/18/2024 1:22:55 PM JOE: 07/28/2024 GA: 29.60 Image Quality: Diagnosing Physician: Irving Castillo MD Image Editor: Aye Braswell [facility] 2nd Image Editor: Diagnosis: O35.8XX0 cardiac abnormality, antepartum, single fetus or unspecified Indications: 35961, 74246, 61256 Echo, Complete (w/Doppler and color) Exam Location: [place] (). Indications: Evaluate cardiac anatomy and function. Color Doppler was utilized to interrogate the cardiac valves assessed. Spectral Doppler was utilized to determine the flow velocities and pressure gradients reported in this exam. History: Suspected cardiac anomaly Parameters: Single/Multi: Myers Position: position is cephalic Biometry: Biometry Table: Biparietal Diameter 7.66 cm Abdominal Circumference 25.93 cm Femur Length 5.40 cm Estimated Weight 1547.32 g Vessels: Three-vessel umbilical cord is present. Umbilical artery flow Doppler is normal. Umbilical venous flow Doppler is normal. Cerebral Artery Doppler is normal. UA S/D 3.0 UA PI 1.01 MCA PI 1.45 Rate and Rhythm: heart rate is normal. heart rhythm is normal. HR 151 bpm Mechanical MI 137 ms Segmental Anatomy, Cardiac Position and Situs: The segmental anatomy and situs are normal. Normal visceral situs. The heart position is within the left hemithorax (levo position). Levocardia (apex to the left). The aorta is to the right of the pulmonary artery. Segmental anatomy is S,D,S. Systemic Veins: Right superior vena cava is right sided and drains normally to the right atrium. The inferior vena cava is right sided and inserts normally into the right atrium. Pulmonary Veins: At least one pulmonary vein on each side drains to the left atrium. Atria: The right atrium is dilated. The left atrium is normal in size. Widely patent foramen ovale with right to left shunting. 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 Moderate to severe tricuspid regurgiation. Right ventricular pressure is estimated by TR jet velocity to be 56 mmHg plus right atrial V-wave. Tricuspid valve inflow Doppler is biphasic. There is moderate to severe tricuspid valve regurgitation. Right Ventricle: Right ventricle is dilated and mildly hypertrophied with normal systolic function. Mitral Valve: There is no mitral valve regurgitation. There is no mitral valve stenosis. Mitral valve inflow Doppler is biphasic. Left Ventricle: Normal left ventricular size and wall thickness with normal systolic function. VSD: There is no obvious ventricular septal defect. RVOT: There is no right ventricular outflow tract obstruction. Pulmonary Valve: There is no pulmonary valve stenosis. There is no pulmonary valve regurgitation. Pulmonary Arteries: The main and branch pulmonary arteries appear normal. LVOT: There is no left ventricular outflow tract obstruction. Aorta: Aortic arch is widely patent. Ductus Arteriosus: Ductal arch is widely patent with normal intrauterine right to left flow. Pericardium: There is no pericardial effusion. Measurements: 2D: Z-Score Aortic annulus 4.7 mm -1.24 MV annulus 6.5 mm -2.11 Pulmonary annulus 5.7 mm -1.39 TV annulus 7.4 mm -1.40 LPA diameter 2.6 mm -1.88 RPA diameter 3.8 mm 0.23 Doppler: TV regurg Vmax 3.7 m/s Summary 1. Segmental anatomy and situs are normal. 2. 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 Moderate to severe tricuspid regurgiation. 3. Right ventricular pressure is estimated by TR jet velocity to be 56 mmHg plus right atrial V-wave. 4. Dilated right atrium. 5. Widely patent foramen ovale with right to left shunting. 6. Right ventricle is dilated and mildly hypertrophied with normal systolic function. 7. Normal left ventricular size and wall thickness with normal systolic function. 8. Normal main and branch pulmonary arteries. 9. Ductal arch is widely patent with normal intrauterine right to left flow. 10. Aortic arch is widely patent. 11. No pericardial effusion. 12. heart rhythm and rate are normal. Irving Castillo MD *Electronically signed on 05/18/2024 at 3:13:31 PM Final CC [employer] Image : [id number] (more content not included)... Normal [facility] Prot/Creat Uron 05-18-2024 Protein/Creatinine (U) [Mass ratio] 0.14 mg/mg Normal <0.15 [facility] Comment on above: Order Comment: Marisa mckeon Type: URINE SPECIMENOrdering Facility: [facility] Address: [facility] [place] [address] Result Comment: Adul t Proteinuria Categories: <0.15 mg/mg is considered normal to mildly increased 0.15 - 0.50 mg/mg is considered moderately increased >0.50 mg/mg is considered severely increased KDIGO. (2013). KDIGO 2012 Clinical Practice Guideline for the Evaluation and Management of Chronic Kidney Disease. Official Journal of the International Society of Nephrology, 3(1), 1-150. Performed By: #### 2 890-2 ####[facility][1] LABORATORYCLIA [id number] [place] [address] [place] Protein/Creatinine (U) [Mass ratio]on 05-18-2024 Creatinine (U) [Mass/Vol] 158.9 mg/dL Normal 42.2-237.9 [facility] Comment on above: Order Comment: Marisa mckeon Type: URINE SPECIMENOrdering Facility: [facility] Address: [address] [place] [address] Performed By: #### 2 890-2 ####[facility][1] LABORATORYCLIA [id number] [place] [address] [place] Protein (U) [Mass/Vol] 23 mg/dL High 0-20 [facility] Comment on above: Order Comment: Speci men Type: URINE SPECIMENOrdering Facility: [facility] Address: [address] [place] [address] Performed By: #### 2 890-2 ####[facility][1] LABORATORYCLIA [id number] [place] [address] [place] AST(SGOT)on 05-15-2024 AST [Catalytic activity/Vol] 12 U/L Low 15-37 [facility] Comment on above: Performed By: #### L 501.4405, L501.4100, L501.0900, L501.1105, L100.0500, L501.1400 #### [facility] [address] [place] [address], [place], [id number] Alanine Aminotransferas (SGP T)on 05-15-2024 ALT [Catalytic activity/Vol] 15 U/L Normal 13-56 [facility] Comment on above: Performed By: #### L 501.4405, L501.4100, L501.0900, L501.1105, L100.0500, L501.1400 ####[facility] [id number] [place], [address] CBC-Complete Blood Cnt No Di ffon 05-15-2024 Erythrocyte distribution width (RBC) [Ratio] 14.0 % Normal 11.6-14.6 [facility] [facility] Comment on above: Performed By: #### L 501.4405, L501.4100, L501.0900, L501.1105, L100.0500, L501.1400 #### [facility] [address] [place], [address] Hematocrit (Bld) [Volume fraction] 33.6 % Low 37-47 [facility] Comment on above: Performed By: #### L 501.4405, L501.4100, L501.0900, L501.1105, L100.0500, L501.1400 #### [facility] [address] [place], [address] Hemoglobin (Bld) [Mass/Vol] 10.7 g/dL Low 12.0-15.0 [facility] Comment on above: Performed By: #### L 501.4405, L501.4100, L501.0900, L501.1105, L100.0500, L501.1400 #### [facility] [address] [place], [address] MCH (RBC) [Entitic mass] 26.1 pg Low 27.0-32.0 [facility] Comment on above: Performed By: #### L 501.4405, L501.4100, L501.0900, L501.1105, L100.0500, L501.1400 #### [facility] [address] [place], [address] MCHC (RBC) [Mass/Vol] 31.8 g/dL Low 32-36 [facility] Comment on above: Performed By: #### L 501.4405, L501.4100, L501.0900, L501.1105, L100.0500, L501.1400 #### [facility] [address] [place], [address] MCV (RBC) [Entitic vol] 82.0 fL Normal 81-99 [facility] Comment on above: Performed By: #### L 501.4405, L501.4100, L501.0900, L501.1105, L100.0500,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 with the patient. Tammy Godoy, Normal [facility] Consult [facility] [place] [facility] Consult Note Reason for Consult/Chief Complaint: HTN Consulting MD: Dr. Durant History of Present Illness: Pablo Alarcon is a 28 y.o. female with neurofibromatosis, 26 week admitted for superimposed preeclampsia with significant HTN BP reaching 166/110 mmHg. She is known to have HTN on medications nifedipine 60 mg bid and in the hospital she is requiring labetalol, currently BP has improved to 142/98 mmHg. She reports feeling fine, no chest pain or SOB, no palpitations, dizziness or syncope. We obtained BP measurements in all 4 extremities which was consistent with symmetric measurements and appropriately higher BP in lower extremities/no drop in BP or BP deficit (L arm: 142/98, R arm: 137/97, L le/98, R le/98). Echo showed normal LV/RV, no valve disease, moderate pericardial effusion, on image review it appears small and echolucent at the RV free wall, no tamponade and trace effusion elsewhere. She has no pleuritic symptoms and asymptomatic. Renal Duplex was normal. Past Medical History: Past Medical History: Diagnosis Date Neurofibromatosis, type 1 (CMS/HCC) (HCC) Past Surgical History: Past Surgical History: Procedure Laterality Date TONSILLECTOMY (HISTORICAL) Family History: No family history on file. Social History: Social History Tobacco Use Smoking status: Every Day Smokeless tobacco: Never Vaping Use Vaping status: Every Day Substances: Nicotine Medications: aspirin, 81 mg, Oral, Daily carbamide peroxide, 5 drop, Right Ear, BID famotidine, 20 mg, Oral, BID fluticasone, 1 spray, Each Nostril, BID influenza, 0.5 mL, IntraMUSCular, Once levETIRAcetam, 1,000 mg, Oral, Nightly nicotine, 1 patch, TransDERmal, Daily Followed by [START ON 05/30/2024] nicotine, 1 patch, TransDERmal, Daily NIFEdipine XL, 60 mg, Oral, Daily NIFEdipine XL, 60 mg, Oral, Nightly Non-Formulary Medication, 1 Units, Oral, Daily penicillin V, 500 mg, Oral, BID vitamin, 1 tablet, Oral, Daily sertraline, 50 mg, Oral, Daily sodium chloride 0.9%, 10 mL, IntraVENous, 2 times per day Allergies: Patient has no known allergies. Reviewed Review of Systems: All other systems were reviewed and are negative other than as noted in the HPI. Physical Examination: Vitals: Blood pressure 142/98, pulse 100, temperature 36.6 ?C (97.8 ?F), temperature source Oral, resp. rate 16, height 5' 1 (1.549 m), weight 170 lb (77.1 kg), SpO2 99%. No intake or output data in the 24 hours ending 04/22/24 1333 Wt Readings from Last 3 Encounters: 04/22/24 170 lb (77.1 kg) Neck: no JVD. No carotid bruits; No thyromegaly. Respiratory: Lungs are clear. No rales or wheezes. Respiratory effort is normal and symmetrical bilaterally; Good air movement bilaterally. Heart: RRR; Normal S1 and S2. no murmur; No rub; no gallop. Extremities/Skin: no LE edema; Skin warm to touch and well perfused Laboratory Tests: Results from last 7 days Lab Units 04/21/24 0603 04/17/242000 WBC AUTO 10*3/uL 24.2* 21.8* HEMOGLOBIN g/dL 13.0 11.3* HEMATOCRIT % 39.9 35.2 MCV fL 83.5 83.6 PLATELETS 10*3/uL 323 317 Lab Results Component Value Date GLUCOSE 96 04/21/2024 CALCIUM 9.3 04/21/2024 NA 132 (L) 04/21/2024 K 4.1 04/21/2024 CO2 20 (L) 04/21/2024 CL 105 04/21/2024 BUN 8 04/21/2024 CREATININE 0.49 (L) 04/21/2024 Lab Results Component Value Date HGBA1C 4.7 04/20/2024 Lab Results Component Value Date TSH 2.796 04/21/2024 Assessment/Plan HTN: initially uncontrolled, currently improved on labetalol and nifedipine, probably chronic HTN/exacerbated by gestational HTN, neurofibromatosis can be associated with HTN (workup is reasonable, BP measurements reassuring and no suggestive of aorta abnormalities such as mid aortic syndrome, renal arteries are normal, TSH was normal, renal function is normal, no proteinuria, metanephrines are pending). No heart failure. -continue antihypertensive per OB team and consider scheduled oral labetalol 200 mg bid or TID if needed for BP control Pericardial effusion: small, asymptomatic, no ECG changes/no pleuritic symptoms. -reassess as outpatient -consider repeat imaging for reassessment in 3 months We will sign off, please call us for questions Marty Wallis MD, FACC, FASE DATE of SERVICE: 04/22/2024 Normal [facility] ECG 12-LEADon 04-22-2024 ECG 12-LEAD IMPRESSION: Sinus tachycardia Borderline T wave abnormalities Electronically Signed On 04-22-2024 12:24:11 EDT by Lizzeth Javed Normal [facility] GLUCOSE CHALLENGE SCREEN, MI EGNANCYon 04-22-2024 Glucose [Mass/Vol] 127 mg/dL Normal <=140 [facility] Comment on above: Result Comment: ROD Acosta COMMENTS: Values >140 mg/dL constitute a positive screen. Positive screens on patients should be followed by a diagnostic three-hour glucose tolerance test (Glucose Tolerance Test; GRO993). Performed By: #### L [id number] ####Nursing Scheduler: MELANI STEINBERG ([phone])[facility] ([facility])[address] [place] [address] Laboratory - Chemistry and C hemistry - challengeon 04-22-2024 Glucose 1 Hr post dose glucose [Mass/Vol] 127 mg/dL NINF - 140 mg/dL [facility] No Panel Informationon 04-22 Interpretation and review of laboratory results Normal [facility] Values >140 mg/dL constitute a positive screen. Positive screens on patients should be followed by a diagnostic three-hour glucose tolerance test (Glucose Tolerance Test; GIH652). [facility] Sinus tachycardia Borderline T wave abnormalities Electronically Signed On 04-22-2024 12:24:11 EDT by Lizzeth Zelaya MD - 04/22/2024 IMPRESSION: Sinus tachycardia Borderline T wave abnormalities Electronically Signed On 04-22-2024 12:24:11 EDT by Lizzeth Javed [facility] No hemodynamically significant stenosis involving bilateral renal arteries and both kidneys are of normal size. Right renal vein is patent and demonstrates normal phasicity. Left renal vein is patent and demonstrates normal phasicity. Renal Study is negative for hemodynamically significant stenosis involving bilateral renal arteries and both kidneys are of normal size. Right Renal Findings: Right renal vein is patent and demonstrates normal phasicity. Left Renal Findings: Left renal vein is patent and demonstrates normal phasicity. Globe Changer Details A melissa scale, color Doppler imaging and spectral Doppler analysis ultrasound was performed. During the study longitudinal and transverse views were obtained. Pulsed wave doppler was performed. The exam was performed with the patient in the supine and decubitus position. Overall the study quality was adequate. Study was technically difficult due to: patient movement and Patient is 28 weeks .. CV CPACS No Panel InformationOrdered By: Lizzeth Javed on 04-22-2024 P [place] 37 degrees [facility] [employer] Phone: MI Interval 102 ms [facility] [employer] Work Phone: QRS [place] 35 degrees [facility] [employer] Phone: QRSD Interval 78 ms [facility] [employer] Work Phone: QT Interval 336 ms [facility] [employer] Work Phone: QTC Interval 456 ms [facility] [employer] Work Phone: T Wave [place] -23 degrees [facility] [employer] Phone: [facility] [employer] Phone: No Panel InformationOrdered By: Burke Galvez on 04-22-2024 Ao mid PSV 66.2 cm/s [facility] Work Phone: L renal orig RI 0.57 [facility] Work Phone: Left Arcuate Renal Artery EDV 17.1 cm/s [facility] [employer] Work Phone: Left Arcuate Renal Artery PSV 29.4 cm/s [facility] [employer] Work Phone: Left Arcuate Renal Artery RI 0.42 [facility] [employer] Phone: Left kidney length 9.84 cm [facility] [employer] Work Phone: Left renal dist EDV 24.4 cm/s [facility] Phone: Left renal dist PSV 47.1 cm/s [facility] Work Phone: Left renal dist RAR 0.71 [facility] Work Phone: Left Renal Dist RI 0.48 [facility] Work Phone: Left renal mid EDV 63.0 cm/s [facility] Work Phone: Left renal mid PSV 173.0 cm/s [facility] Work Phone: Left renal mid RAR 2.61 [facility] Work Phone: Left Renal Mid RI 0.64 [facility] Work Phone: Left renal middle parenchyma EDV 13.4 cm/s [facility] Work Phone: Left renal middle parenchyma PSV 31.9 cm/s [facility] Work Phone: Left renal middle parenchyma RI 0.58 [facility] Work Phone: Left renal origin EDV 25.1 cm/s [facility] Work Phone: Left renal origin PSV 57.8 cm/s [facility] Work Phone: Left renal origin RAR 0.87 [facility] Work Phone: Left renal prox EDV 37.4 cm/s [facility] Work Phone: Left renal prox PSV 77.2 cm/s [facility] Work Phone: Left renal prox RAR 1.17 [facility] Work Phone: Left Renal Prox RI 0.52 [facility] Work Phone: Left Renal RAR 2.61 [facility] Work Phone: Left Renal Segmental Accel Time 0.05 s [facility] Work Phone: Left Segmental Renal Artery EDV 13.4 cm/s [facility] Work Phone: Left Segmental Renal Artery PSV 31.9 cm/s [facility] Work Phone: Left Segmental Renal Artery RI 0.58 [facility] Work Phone: Right Arcuate Renal Artery EDV 9.0 cm/s [facility] Work Phone: Right Arcuate Renal Artery PSV 19.9 cm/s [facility] Work Phone: Right Arcuate Renal Artery RI 0.55 [facility] Work Phone: Right kidney length 9.96 cm [facility] Work Phone: Right renal dist EDV 35.8 cm/s [facility] Work Phone: Right renal dist PSV 78.4 cm/s [facility] Work Phone: Right renal dist RAR 1.18 [facility] Work Phone: Right Renal Dist RI 0.54 no units [facility] Work Phone: Right renal mid EDV 56.6 cm/s [facility] Work Phone: Right renal mid PSV 121.4 cm/s [facility] Work Phone: Right renal mid RAR 1.83 [facility] Work Phone: Right Renal Mid RI 0.53 [facility] Work Phone: Right renal middle parenchyma EDV 16.4 cm/s [facility] Work Phone: Right renal middle parenchyma PSV 35.6 cm/s [facility] Work Phone: Right renal middle parenchyma RI 0.54 [facility] Work Phone: Right renal origin EDV 40.7 cm/s [facility] Work Phone: Right renal origin PSV 84.4 cm/s [facility] Work Phone: Right renal origin RAR 1.27 [facility] Work Phone: Right Renal Origin RI 0.52 [facility] Work Phone: Right renal prox EDV 79.9 cm/s [facility] Work Phone: Right renal prox PSV 160.1 cm/s [facility] Work Phone: Right renal prox RAR 2.42 [facility] [employer] Work Phone: Right Renal Prox RI 0.50 [facility] [employer] Work Phone: Right Renal RAR 2.42 [facility] Work Phone: Right Renal Segmental Accel Time 0.04 s [facility] [employer] Work Phone: Right Segmental Renal Artery EDV 16.4 cm/s [facility] [employer] Work Phone: Right Segmental Renal Artery PSV 35.6 cm/s [facility] [employer] Work Phone: Right Segmental Renal Artery RI 0.54 [facility] [employer] Work Phone: Nursing Noteon 04-22-2024 Nursing Note 0951: Pt begins drinking 50g glucose drink 0954: Pt finishes 50g glucose drink. RN will return in 1 hr for blood draw. Normal [facility] Progress Noteon 04-22-2024 Progress Note Alerted by RN that the patient had a non-persistent severe range pressure. Per cardiology recommendations and after consulting with supervisor home restoration service MFM attending, will add labetalol 200mg TID to her blood pressure regimen a this time. Santhosh Miranda MD 04/22/2024 5:21 PM [facility] Progress Note ---- Attestation signed by Sandy Kennedy DO at 04/22/2024 4:13 PM Hospital Care (Present): I was present with the resident during the history and exam. I discussed the case with the resident and agree with the findings and plan as documented in the resident's note. 28 y.o. yo at 26w1d hospital day 5 with: - CHTN exacerbation and NF1- on Procardia and Labetalol. NF and HTN assoc pheo. Metanephrines pending. Fetus 50% at riskof NF. Recommend genetics evaluation. Continue inpt care to assure BP stay well controlled on new medication regimen. At risk of developing superimposed preeclampsia, low suspicion at this time based on physical exam and labs. - Tachycardia - cardiology evaluated. Recommend FU echo in 3 months. No additional concerns or recommendations. Cardiology consult completed and they signed off. - Dizziness - occluded right ear canal with impacted wax, treated with Dubrox drops and wax easily removed and now can see normal TM. Chart review and preparation: 18 minutes. Face to face: 15 minutes. Documentation and care coordination: 15 minutes. Total time spent on patient care today: 48 minutes. ---- Maternal Medicine Service Resident Progress Note 04/22/2024 5:59 AM 04/17/2024 Hospital Day: 6 Pablo Alarcon, 28 y.o. 26w1d Patient has been seen and examined. She was resting comfortably prior to evaluation. The patient mentions that she has a stable headache but her dizziness has improved. She did require acute treatment for her blood pressure overnight. She denies chest pain, trouble breathing, or epigastric pain. The patient mentions that she did not feel movement overnight but that it was because she was sleeping, discussed monitoring for movements when awake. Negative vaginal bleeding Negative LOF Negative Contractions Vitals: 04/22/24 0045 04/22/24 0143 04/22/24 0247 04/22/24 0346 BP: 125/91 112/66 113/73 136/90 Pulse: 92 85 76 98 Resp: Temp: TempSrc: SpO2: Weight: Height: FHT: 130s-140s, moderate variability Accels: present Decels: absent Contractions: none Physical Exam: Gen: NAD, at baseline HEENT: Normocephalic, Atraumatic, EOMI, MMM Resp: Normal Abd: soft, gravid, NTND, no rebound, no guarding. No RUQ pain or fundal tenderness Medications: Current Facility-Administer ed Medications Medication Dose Route Frequency Provider Last Rate Last Admin acetaminophen (Tylenol) tablet 650 mg 650 mg Oral q4h PRN Rosalia Schlieper, DO 650 mg at 04/21/242045 aspirin EC tablet 81 mg 81 mg Oral Daily Annemarie Gemma, DO 81 mg at 04/21/24 0825 calcium carbonate (Tums) chewable tablet 500 mg 500 mg Oral q6h PRN Annemarie Gemma, DO 500 mg at 04/21/24 0620 calcium gluconate 10 % injection 1 g 1 g IntraVENous PRN Rosaliashannan Ganteper, DO carbamide peroxide (Debrox) 6.5 % otic solution 5 drop 5 drop Right Ear BID Blossom Reed, DO 5 drop at 04/21/242107 diphenhydrAMINE (BENADryl) injection 25 mg 25 mg IntraVENous q6h PRN Jasmina Wu, DO 25 mg at 04/22/24 0047 diphenhydrAMINE (BENADryl) tablet/capsule 25 mg 25 mg Oral q6h PRN Aye Campbell, DO 25 mg at 04/21/24 0604 docusate sodium (Colace) capsule 100 mg 100 mg Oral BID PRN Annemarie Daugherty, DO 100 mg at 04/18/242153 famotidine (Pepcid) tablet 20 mg 20 mg Oral BID Annemarie Gemma, DO 20 mg at 04/21/242045 fluticasone (Flonase) nasal spray 1 spray 1 spray Each Nostril BID Santhosh Miranda MD 1 spray at 04/21/242110 guaiFENesin (Mucinex) 12 hr tablet 600 mg 600 mg Oral BID PRN Rosalia Vaibhavlieper, DO 600 mg at 04/20/24 2100 influenza vaccine tiss-cult subunt (Flucelvax) STANDARD-DOSE injection 0.5 mL 0.5 mL IntraMUSCular Once Rosalia Schlieper, DO levETIRAcetam (Keppra) 100 MG/ML solution 1,000 mg 1,000 mg Oral Nightly Rosalia Schlieper, DO 1,000 mg at 04/21/242057 nicotine (Nicoderm, Step 2) 14 MG/24HR patch 1 patch 1 patch TransDERmal Daily Silvana Jackaudi, DO 1 patch at 04/21/24 0824 Followed by [START ON 05/30/2024] nicotine (Nicoderm, Step 3) 7 MG/24HR patch 1 patch 1 patch TransDERmal Daily Silvana Jackovic, DO NIFEdipine XL (Procardia XL) 24 hr tablet 60 mg 60 mg Oral Daily Blossom Bashirwu, DO NIFEdipine XL (Procardia XL) 24 hr tablet 60 mg 60 mg Oral Nightly Blossom Nwagwu, DO 60 mg at 04/21/242054 Non-Formulary Medication 1 Units Oral Daily Annemarie Gemma, DO ondansetron ODT (Zofran-ODT) disintegrating tablet 4 mg 4 mg Oral q8h PRN Rosalia Schlieper, DO Or ondansetron (Zofran) injection 4 mg 4 mg IntraVENous q6h PRN Rosalia Schlieper, DO 4 mg at 04/21/242206 penicillin V (Veetid) tablet 500 mg 500 mg Oral BID Annemarie Gemma, DO 500 mg at 04/21/242104 polyethylene glycol (PEG) 3350 (Miralax) packet (more content not included)... Normal [facility] Heart TransthoracicOrdere d By: Humberto Leija on 04-22-2024 Ao Root Index 1.31 cm/m2 [facility] Work Phone: Aortic Root 2.3 cm [facility] Work Phone: AV Area by Peak Velocity 2.0 cm2 [facility] Work Phone: AV Area by VTI 2.1 cm2 [facility] Work Phone: AV Mean Gradient 4 mmHg [facility] Work Phone: AV Mean Velocity 0.9 m/s [facility] Work Phone: AV Peak Gradient 6 mmHg [facility] Work Phone: AV Peak Velocity 1.2 m/s [facility] Work Phone: AV Velocity Ratio 0.58 [facility] Work Phone: AV VTI 19.9 cm [facility] [employer] Work Phone: MARIELY/BSA Peak Velocity 1.1 cm2/m2 [facility] [employer] Work Phone: MARIELY/BSA VTI 1.2 cm2/m2 [facility] [employer] Work Phone: E/E' Lateral 8.75 [facility] Work Phone: E/E' Ratio (Averaged) 11.38 [facility] [employer] Work Phone: E/E' Septal 14.00 [facility] [employer] Work Phone: EF BP 58 % 55 - 100 % [facility] [employer] Work Phone: Fractional Shortening 2D 29 % 28 - 44 % [facility] [employer] Work Phone: Interpretation and review of laboratory results Abnormal [facility] [employer] Work Phone: IVSd 1.1 cm Abnormal 0.6 - 0.9 cm [facility] [employer] Work Phone: LA Diameter 2.5 cm [facility] [employer] Work Phone: LA Size Index 1.42 cm/m2 [facility] [employer] Work Phone: LA Volume 2C 25 mL 22 - 52 mL [facility] [employer] Work Phone: LA Volume 4C 29 mL 22 - 52 mL [facility] [employer] Work Phone: LA Volume A/L 29 mL [facility] [employer] Work Phone: LA Volume BP 28 mL 22 - 52 mL [facility] [employer] Work Phone: LA Volume Index 2C 14 mL/m2 Abnormal 16 - 34 mL/m2 [facility] [employer] Work Phone: LA Volume Index 4C 16 mL/m2 16 - 34 mL/m2 [facility] ma [employer] Work Phone: LA Volume Index A/L 16 mL/m2 16 - 34 mL/m2 [facility] Work Phone: LA Volume Index BP 16 ml/m2 16 - 34 ml/m2 [facility] ma Health Work Phone: LA/AO Root Ratio 1.09 [facility] Work Phone: LV E' Lateral Velocity 8 cm/s [facility] Work Phone: LV E' Septal Velocity 5 cm/s [facility] Work Phone: LV EDV A2C 131 mL [facility] Work Phone: LV EDV A4C 92 mL [facility] Work Phone: LV EDV BP 112 mL Abnormal 56 - 104 mL [facility] Work Phone: LV EDV Index A2C 74 mL/m2 [facility] Work Phone: LV EDV Index A4C 52 mL/m2 [facility] Work Phone: LV EDV Index BP 64 mL/m2 [facility] Work Phone: LV Ejection Fraction A2C 60 % [facility] Work Phone: LV Ejection Fraction A4C 57 % [facility] Work Phone: LV ESV A2C 53 mL [facility] Work Phone: LV ESV A4C 40 mL [facility] Work Phone: LV ESV BP 47 mL 19 - 49 mL [facility] Work Phone: LV ESV Index A2C 30 mL/m2 [facility] Work Phone: LV ESV Index A4C 23 mL/m2 [facility] Work Phone: LV ESV Index BP 27 mL/m2 [facility] Work Phone: LV Mass 2D 117.3 g 67 - 162 g [facility] Work Phone: LV Mass 2D Index 66.6 g/m2 43 - 95 g/m2 [facility] Work Phone: LV RWT Ratio 0.47 [facility] Work Phone: LVIDd 3.8 cm Abnormal 3.9 - 5.3 cm [facility] Work Phone: LVIDd Index 2.16 cm/m2 [facility] Work Phone: LVIDs 2.7 cm [facility] Work Phone: LVIDs Index 1.53 cm/m2 [facility] [employer] Work Phone: LVOT Area 3.8 cm2 [facility] Work Phone: LVOT Cardiac Output 3.7 liter/minute [facility] Work Phone: LVOT Diameter 2.2 cm [facility] Work Phone: LVOT Mean Gradient 1 mmHg [facility] [employer] Work Phone: LVOT Peak Gradient 2 mmHg [facility] [employer] Work Phone: LVOT Peak Velocity 0.7 m/s [facility] [employer] Work Phone: LVOT Stroke Volume Index 23.5 mL/m2 [facility] Work Phone: LVOT SV 41.4 ml [facility] [employer] Work Phone: LVOT VTI 10.9 cm [facility] [employer] Work Phone: LVOT:AV VTI Index 0.55 [facility] [employer] Work Phone: LVPWd 0.9 cm 0.6 - 0.9 cm [facility] [employer] Work Phone: MV A Velocity 0.82 m/s [facility] Work Phone: MV E Velocity 0.70 m/s [facility] Work Phone: MV E Wave Deceleration Time 162.9 ms [facility] [employer] Work Phone: MV E/A 0.85 [facility] [employer] Work Phone: RV Basal Dimension 2.6 cm [facility] [employer] Work Phone: RV Free Wall Peak S' 12 cm/s [facility] [employer] Work Phone: RV Longitudinal Dimension 7.3 cm [facility] [employer] Work Phone: RV Mid Dimension 2.2 cm [facility] [employer] Work Phone: TAPSE 2.3 cm 1.7 cm [facility] [employer] Work Phone: [facility] [employer] Work Phone: US Heart Transthoracicon Left Ventricle: Left ventricle size is normal. Normal wall thickness. Normal left ventricular systolic function. EF by 2D Simpsons Biplane is 58%. Normal wall motion. Right Ventricle: Right ventricle size is normal. Normal systolic function. Pericardium: Moderate (1-2 cm) localized pericardial effusion present around the right ventricle. Pericardial effusion is echolucent. Findings do not support cardiac tamponade. No significant valvular abnormalities. Left Ventricle Left ventricle size is normal. Normal wall thickness. Normal left ventricular systolic function. EF by 2D Sim[employer]ons Biplane is 58%. Normal wall motion. Right Ventricle Right ventricle size is normal. Normal systolic function. Left Atrium Left atrium size is normal. Right Atrium Right atrium size is normal. IVC/SVC IVC was not well visualized. IVC diameter is normal and decreases greater than 50% during inspiration; therefore the estimated right atrial pressure is normal (~3 mmHg). Mitral Valve Valve structure is normal. No regurgitation. No stenosis noted. Tricuspid Valve Valve structure is normal. Trace regurgitation. Aortic Valve Not assessed. No cusp thickening. No cusp calcification. No regurgitation. No stenosis. Pulmonic Valve Valve structure is normal. Trace regurgitation. Ascending Aorta Not assessed due to poor image quality. Normal sized sinuses of Valsalva. Pericardium Moderate (1-2 cm) localized pericardial effusion present around the right ventricle. Pericardial effusion is echolucent. Findings do not support cardiac tamponade. Septum No interatrial shunt visualized on color Doppler. Study Details Image quality: adequate. Heart rate: 102 bpm. Blood pressure: 136/90 mmHg. The underlying ECG rhythm was sinus tachycardia. No contrast was given. Echo Additional Conclusions No significant valvular abnormalities. CV CPACS Vital signsOrdered By: Hadley Javed on 04-22-2024 Heart rate 110 /min bpm [facility] [employer] Work Phone: CBC (HEMOGRAM)on 04-21-2024 Erythrocyte distribution width (RBC) [Ratio] 13.2 % Normal 11.5-15.0 [facility] Comment on above: Performed By: #### L [id number] ####Nursing Scheduler: MELANI STEINBERG ([phone])[facility] ([facility])[address] [place] [address] Hematocrit (Bld) [Volume fraction] 39.9 % Normal 35.0-47.0 [facility] Comment on above: Performed By: #### L [id number] ####Nursing Scheduler: MELANI STEINBERG ([phone])[facility])[address] [place] [address] Hemoglobin (Bld) [Mass/Vol] 13.0 g/dL Normal 11.7-16.0 [facility] Comment on above: Performed By: #### L [id number] ####Nursing Scheduler: MELANI STEINBERG ([phone])[facility] ([facility])[address] [place] [address] MCH (RBC) [Entitic mass] 27.2 pg Normal 26.0-34.0 [facility] Comment on above: Performed By: #### L [id number] ####Nursing Scheduler: MELANI STEINBERG ([phone])[facility])[address] [place] [address] MCHC 32.6 % Normal 30.5-36.0 [facility] Comment on above: Performed By: #### L [id number] ####Nursing Scheduler: MELANI STEINBERG ([phone])[facility] ([facility])[address] [place] [address] MCV (RBC) [Entitic vol] 83.5 fL Normal 77.0-99.[address] [facility] Comment on above: Performed By: #### L [id number] ####Nursing Scheduler: MELANI STEINBERG ([phone])[facility])[address] [place] [address] Platelet mean volume (Bld) [Entitic vol] 11.0 fL Normal 9.0-12.7 [facility] Comment on above: Performed By: #### L [id number] ####Nursing Scheduler: MELANI STEINBERG ([phone])[facility])[address] [place] [address] Platelets (Bld) [#/Vol] 323 10*3/uL Normal 140-440 [facility] Comment on above: Performed By: #### L [id number] ####Nursing Scheduler: MELANI STEINBERG ([phone])[facility] ([facility])[address] [place] [address] RBC (Bld) [#/Vol] 4.78 10*6/uL Normal 3.80-5.20 [facility] Comment on above: Performed By: #### L [id number] ####Nursing Scheduler: MELANI STEINBERG ([phone])[facility] ([facility])[address] [place] [address] WBC (Bld) [#/Vol] 24.2 10*3/uL High 3.6-10.7 [facility] Comment on above: Performed By: #### L [id number] ####Nursing Scheduler: MELANI STEINBERG ([phone])[facility])[address] [place] [address] CBC panel Auto (Bld)on 04-21 Erythrocyte distribution width (RBC) [Ratio] 13.2 % 11.5 - 15.0 % [facility] Hematocrit (Bld) [Volume fraction] 39.9 % 35.0 - 47.0 % [facility] Hemoglobin (Bld) [Mass/Vol] 13.0 g/dL 11.7 - 16.0 g/dL [facility] Interpretation and review of laboratory results Abnormal [facility] MCH (RBC) [Entitic mass] 27.2 pg 26.0 - 34.0 pg [facility] MCHC (RBC) [Mass/Vol] 32.6 % 30.5 - 36.0 % [facility] MCV (RBC) [Entitic vol] 83.5 fL 77.0 - 99.0 fL [facility] Platelet mean volume (Bld) [Entitic vol] 11.0 fL 9.0 - 12.7 fL [facility] Platelets (Bld) [#/Vol] 323 10*3/uL 140 - 440 10*3/uL [facility] RBC (Bld) [#/Vol] 4.78 10*6/uL 3.80 - 5.2 0 10*6/uL [facility] WBC (Bld) [#/Vol] 24.2 10*3/uL High 3.6 - 10.7 10*3/uL [facility] COMPREHENSIVE METABOLIC PANE Arslan 04-21-2024 Albumin [Mass/Vol] 3.9 g/dL Normal 3.5-5.0 [facility] Comment on above: Performed By: #### L [id number] #### Nursing Scheduler: MELANI STEINBERG ([phone]) [facility] ([facility]) [address] [place] [address] ALP [Catalytic activity/Vol] 92 U/L Normal 38-126 [facility] Comment on above: Performed By: #### L [id number] #### Nursing Scheduler: MELANI STEINBERG ([phone]) [facility] ([facility]) [address] [place] [address] ALT [Catalytic activity/Vol] 31 U/L Normal 0-34 [facility] Comment on above: Performed By: #### L [id number] #### Nursing Scheduler: MELANI STEINBERG ([phone]) [facility] ([facility]) [address] [place] [address] Anion gap [Moles/Vol] 7 mmol/L Normal 3-13 [facility] Comment on above: Performed By: #### L [id number] #### Nursing Scheduler: MELANI STEINBERG ([phone]) [facility] ([facility]) [address] [place] [address] [place] AST [Catalytic activity/Vol] 35 U/L Normal 15-46 [facility] Comment on above: Performed By: #### L [id number] #### Nursing Scheduler: MELANI STEINBERG ([phone]) [facility] ([facility]) [address] [place] [address] [place] Bilirubin [Mass/Vol] 0.3 mg/dL Normal 0.2-1.3 [facility] Comment on above: Performed By: #### L [id number] #### Nursing Scheduler: MELANI STEINBERG ([phone]) [facility] [address] [place] [address] Calcium [Mass/Vol] 9.3 mg/dL Normal 8.4-10.4 [facility] Comment on above: Performed By: #### L [id number] #### Nursing Scheduler: MELANI STEINBERG ([phone]) [facility] [address] [place] [address] Chloride [Moles/Vol] 105 mmol/L Normal 98-107 [facility] Comment on above: Performed By: #### L [id number] #### Nursing Scheduler: MELANI STEINBERG ([phone]) [facility] ([facility]) [address] [place] [address] CO2 [Moles/Vol] 20 mmol/L Low 22-30 [facility] Comment on above: Performed By: #### L [id number] #### Nursing Scheduler: MELANI STEINBERG ([phone]) [facility] ([facility]) [address] [place] [address] Creatinine [Mass/Vol] 0.49 mg/dL Low 0.52-1.04 [facility] Comment on above: Performed By: #### L [id number] #### Nursing Scheduler: MELANI STEINBERG ([phone]) [facility]) [address] [place] [address] GLOMERULAR FILTRATION RATE ML/MIN/1.73 SQ M.PREDICTED >90.0 Normal >60.0 [facility] Comment on above: Result Comment: Calc ulation based on the Chronic Kidney Disease Epidemiology Collaboration (CKD-EPI) equation refit without adjustment for race Performed By: #### L [id number] #### Nursing Scheduler: MELANI STEINBERG ([phone]) [facility] [address] [place] [address] Glucose [Mass/Vol] 96 mg/dL Normal 70-100 [facility] Comment on above: Performed By: #### L [id number] #### Nursing Scheduler: MELANI STEINBERG ([phone]) [facility] ([facility]) [address] [place] [address] Potassium [Moles/Vol] 4.1 mmol/L Normal 3.5-5.1 [facility] Comment on above: Performed By: #### L [id number] #### Nursing Scheduler: MELANI STEINBERG ([phone]) [facility] [address] [place] [address] Protein [Mass/Vol] 7.1 g/dL Normal 6.3-8.2 [facility] Comment on above: Performed By: #### L [id number] #### Nursing Scheduler: MELANI STEINBERG ([phone]) [facility] ([facility]) [address] [place] [address] Sodium [Moles/Vol] 132 mmol/L Low 135-145 [facility] Comment on above: Performed By: #### L [id number] #### Nursing Scheduler: MELANI STEINBERG ([phone]) [facility] [address] [place] [address] Urea nitrogen [Mass/Vol] 8 mg/dL Normal 7-17 [facility] Comment on above: Performed By: #### L [id number] #### Nursing Scheduler: MELANI STEINBERG ([phone]) [facility] ([facility]) [address] [place] [address] Comprehensive metabolic 1998 panelon 04-21-2024 Albumin [Mass/Vol] 3.9 g/dL 3.5 - 5.0 g/dL [facility] ALP [Catalytic activity/Vol] 92 U/L 38 - 126 U/L [facility] ALT [Catalytic activity/Vol] 31 U/L 0 - 34 U/L [facility] Anion gap [Moles/Vol] 7 mmol/L 3 - 13 mmol/L [facility] AST [Catalytic activity/Vol] 35 U/L 15 - 46 U/L [facility] Bilirubin [Mass/Vol] 0.3 mg/dL 0.2 - 1.3 mg/dL [facility] Calcium [Mass/Vol] 9.3 mg/dL 8.4 - 10. 4 mg/dL [facility] Chloride [Moles/Vol] 105 mmol/L 98 - 107 mmol/L [facility] CO2 [Moles/Vol] 20 mmol/L Low 22 - 30 mmol/L [facility] Creatinine [Mass/Vol] 0.49 mg/dL Low 0.52 - 1.04 mg/dL [facility] GFR/1.73 sq M.predicted (S/P/Bld) [Vol rate/Area] - PINF [facility] Comment on above: Calculation based on the Chronic Kidney Disease Epidemiology Collaboration (CKD-EPI) equation refit without adjustment for race Glucose [Mass/Vol] 96 mg/dL 70 - 100 mg/dL [facility] Interpretation and review of laboratory results Abnormal [facility] Potassium [Moles/Vol] 4.1 mmol/L 3.5 - 5.1 mmol/L [facility] Protein [Mass/Vol] 7.1 g/dL 6.3 - 8.2 g/dL [facility] Sodium [Moles/Vol] 132 mmol/L Low 135 - 145 mmol/L [facility] Urea nitrogen [Mass/Vol] 8 mg/dL 7 - 17 mg/dL [facility] ECG 12-LEADon 04-21-2024 ECG 12-LEAD IMPRESSION: Sinus rhythm Borderline T abnormalities, diffuse leads Electronically Signed On 04-21-2024 11:31:43 EDT by Clint Rosales Normal [facility] Laboratory - Chemistry and C hemistry - challengeon 04-21-2024 Glucose [Mass/Vol] 85 mg/dL 70 - 100 mg/dL [facility] TSH Qn 2.796 m[IU]/L [facility] METANEPHRINES PLASMAon 04-21 METANEPHRINE 0.27 nmol/L Normal 0.00-0.49 [facility] Comment on above: Performed By: #### L [id number] ####[facility])[address] [place] [id number] [facility] METANEPHRINES INTERPRETATION See Note Normal [facility] Comment on above: Result Comment: INTE RPRETIVE INFORMATION: Metanephrines, Plasma (Free) This test is useful in the detection of pheochromocytoma, a rare neuroendocrine tumor. The majority of patients with pheochromocytoma have a plasma normetanephrine concentration in excess of 2.2 nmol/L and/or a metanephrine concentration in excess of 1.1 nmol/L. Increased concentrations of these analytes serve as confirmation for diagnosis. Patients with essential hypertension and plasma concentrations of normetanephrine below 0.9 nmol/L and a metanephrine concentration below 0.5 nmol/L, can be excluded from further testing. If clinical suspicion remains, repeat testing or testing for metanephrines in a 24-hr. urine specimen should be considered. This test was developed and its performance characteristics determined by [facility]. It has not been cleared or approved by the [place] Food and Drug Administration. This test was performed in a CLIA certified laboratory and is intended for clinical purposes. Performed By: [facility] [address] [place] [address] Parachute Marker: Main Alvarado MD, PhD CLIA Number: [id number] Performed By: #### L [id number] ####[employer] ([facility])[address] [place] [address] NORMETANEPHRINE 0.55 nmol/L Normal 0.00-0.89 [facility] Comment on above: Performed By: #### L [id number] ####[employer] [facility] ([facility])[address] [place] [address] No Panel InformationOrdered By: Clint Rosales on 04-21-2024 P [place] 31 degrees [employer] Work Phone: [phone] MI Interval 110 ms [employer] Work Phone: [phone] QRS [place] 31 degrees [employer] Phone: [phone] QRSD Interval 79 ms [employer] Work Phone: [phone] QT Interval 338 ms [employer] Work Phone: [phone] QTC Interval 425 ms [employer] Work Phone: [phone] T Wave [place] -9 degrees [employer] Work Phone: [phone] [employer] Phone: [phone] No Panel Informationon 04-21 Sinus rhythm Borderline T abnormalities, diffuse leads Electronically Signed On 04-21-2024 11:31:43 EDT by Clint Rosales CV Clint Brower MD - 04/21/2024 IMPRESSION: Sinus rhythm Borderline T abnormalities, diffuse leads Electronically Signed On 04-21-2024 11:31:43 EDT by Clint Rosales [facility] Interpretation and review of laboratory results Normal [facility] Performed by: [facility], [address] [place] [address] CLIA ID: [id number] [facility] Progress Noteon 04-21-2024 Progress Note Notified by RN of persistent severe range Bps, acutely treated with 20mg IV Labetalol. Repeat high mild range 156/99. Evaluated patient at bedside, neuro exam in tact, she denies difficulty breathing SOB. Her lungs are CTAB, heart sounds wnl. Giving her nighttime dose of Procardia XL 60mg now. Patient endorsing headache, giving Tylenol. She is on BP protocol now. Patient is s/p magnesium sulfate for seizure prophylaxis. Updated Dr. Kennedy via telephone call. May need to titrate her meds tonight, next step would be to add Labetalol 200 mg TID. Patient tachy to 107, EKG was obtained today and sinus tach present. Pulse most recently 97 and her BP is 132/95. Asked RN to place pulse ox, low concern for VTE given physical exam and vitals. Will continue to monitor vitals and symptoms closely Normal [facility] Progress Note ---- Attestation signed by Sandy Kennedy DO at 04/21/2024 5:25 PM Hospital Care (Present): I was present with the resident during the history and exam. I discussed the case with the resident and agree with the findings and plan as documented in the resident's note. 28 y.o. yo at 26w0d hospital day 4 with: - CHTN exerbation, low suspicion for preeclampsia at this time based on physical exam, lab evaluation, hx of cHTN and NF1. Continue close observation. Will titrate PO medications as BP continues to be above goal. If persistent severe range bp occurs, will need IV therapy. - NF1- check plasma metanepherines due to increased risk of pheochromocytoma. Renal duplex US ordered for tomorrow AM, plan for fasting overnight per radiology instructions. - Tachycardia - no evidence of VTE. Negative LE edema/ Rakel's on exam, no SOB. Check EKG, cardiology consult. Echo previously ordered and pending. - Dizziness - right ear canal occluded with impacted cerumen, recommend Dubrox drops - Pt requests to complete 1 hour gct tomorrow , will order. Chart review and preparation: 25 minutes. Face to face: 15 minutes. Documentation and care coordination: 10 minutes. Total time spent on patient care today: 50 minutes. ---- Maternal Medicine Service Resident Progress Note 04/21/2024 5:59 AM 04/17/2024 Hospital Day: 5 Pablo Alarcon, 28 y.o. 26w0d Patient soundly asleep on initial evaluation. She denies any concerns overnight and does not have any questions. She does think that the Flonase has helped her breathing. She still has a minor headache, which she mentions seems like her chronic headaches. Denies RUQ pain, chest pain, sob. Positive movement Negative vaginal bleeding Negative LOF Negative Contractions Vitals: 04/20/24 1447 04/20/24 1502 04/20/24 1926 04/21/24 0030 BP: (!) 166/110 137/99 139/96 146/96 Pulse: (!) 138 107 97 98 Resp: 18 18 Temp: 36.7 ?C (98 ?F) 36.6 ?C (97.9 ?F) TempSrc: Oral Oral SpO2: 100% Weight: Height: FHT: 150, moderate variability Accels: absent Decels: absent Contractions: none Physical Exam: Gen: NAD HEENT: Normocephalic, Atraumatic, EOMI, MMM Resp: Normal Abd: soft, gravid, NTND, no rebound, no guarding. No fundal tenderness, no RUQ pain Medications: Current Facility-Administer ed Medications Medication Dose Route Frequency Provider Last Rate Last Admin acetaminophen (Tylenol) tablet 650 mg 650 mg Oral q4h PRN Rosalia Be, DO 650 mg at 04/20/24 1215 aspirin EC tablet 81 mg 81 mg Oral Daily Annemarie Gemma, DO 81 mg at 04/20/24 0859 calcium carbonate (Tums) chewable tablet 500 mg 500 mg Oral q6h PRN Annemarie Guamanma, DO 500 mg at 04/20/242057 calcium gluconate 10 % injection 1 g 1 g IntraVENous PRN Rosalia Be, DO diphenhydrAMINE (BENADryl) tablet/capsule 25 mg 25 mg Oral q6h PRN Aye Campbell, DO 25 mg at 04/20/24228 docusate sodium (Colace) capsule 100 mg 100 mg Oral BID PRN Annemarie Daugherty, DO 100 mg at 04/18/242153 famotidine (Pepcid) tablet 20 mg 20 mg Oral BID Annemarie Gemma, DO 20 mg at 04/20/242058 fluticasone (Flonase) nasal spray 1 spray 1 spray Each Nostril BID Santhosh Miranda MD 1 spray at 04/20/242057 guaiFENesin (Mucinex) 12 hr tablet 600 mg 600 mg Oral BID PRN Rosalia Be, DO 600 mg at 04/20/242099 influenza vaccine tiss-cult subunt (Flucelvax) STANDARD-DOSE injection 0.5 mL 0.5 mL IntraMUSCular Once Rosalia Be DO levETIRAcetam (Keppra) 100 MG/ML solution 1,000 mg 1,000 mg Oral Nightly Rosalia Schlieper, DO 1,000 mg at 04/20/24 2100 nicotine (Nicoderm, Step 2) 14 MG/24HR patch 1 patch 1 patch TransDERmal Daily Silvana Aurea, DO 1 patch at 04/20/24 0901 Followed by [START ON 05/30/2024] nicotine (Nicoderm, Step 3) 7 MG/24HR patch 1 patch 1 patch TransDERmal Daily Silvana Aurea, DO NIFEdipine XL (Procardia XL) 24 hr tablet 30 mg 30 mg Oral BID Rosalia Schlieper, DO 30 mg at 04/20/242057 Non-Formulary Medication 1 Units Oral Daily Annemarie Gemma, DO ondansetron ODT (Zofran-ODT) disintegrating tablet 4 mg 4 mg Oral q8h PRN Rosalia Schlieper, DO Or ondansetron (Zofran) injection 4 mg 4 mg IntraVENous q6h PRN Rosalia Schlieper, DO penicillin V (Veetid) tablet 500 mg 500 mg Oral BID Annemarie Gemma, DO 500 mg at 04/20/242058 polyethylene glycol (PEG) 3350 (Miralax) packet 17 g 17 g Oral Daily PRN Annemarie Gemma, DO 17 g at 04/18/242154 vitamin tablet 1 tablet Oral Daily Rosalia Schlieper, DO sertraline (Zoloft) tablet 50 mg 50 mg Oral Daily Blossom Reed, DO sodium chloride 0.9 % infusion 5-250 mL/hr IntraVENous PRN Rosalia Schlieper, DO sodium chloride 0.9% (NS) flush 10 mL 10 mL IntraVENous 2 times (more content not included)... Normal [facility] THYROID STIMULATING HORMONEo n 04-21-2024 THYROID STIMULATING HORMONE 2.796 uIU/mL Normal 0.465-4.680 [facility] Comment on above: Performed By: #### L [id number] #### Nursing Scheduler: MELANI STEINBERG ([phone]) [facility] ([facility]) [address] [place] [address] TSH Qnon 04-21-2024 Interpretation and review of laboratory results Normal [facility] Vital signsOrdered By: Shanita Rosales on 04-21-2024 Heart rate 95 /min bpm [facility] Work Phone: BLOOD TYPE AND SCREEN GELon 04-20-2024 ABO GROUPING A Normal [facility] Comment on above: Performed By: #### L [id number] ####Nursing Scheduler: MELANI STEINBERG ([phone])[facility] ([facility])[address] [place] [address] RH TYPE IN BLOOD Positive Normal [facility] Comment on above: Performed By: #### L [id number] ####Nursing Scheduler: MELANI STEINBERG ([phone])[facility] ([facility])[address] [place] [address] Blood type and Crossmatch vanesa lujan (Bld)on 04-20-2024 ABO group Nom (Bld) A [facility] Blood group antibody screen GEL Ql Negative [facility] D Ag Ql (RBC) [facility] CARECOORDon 04-20-2024 CARECOORD Date: 04/20/2024 Name: Pablo Alarcon : 1995 [facility] Patient Information Primary Caregiver: Self Accompanied by/Relationship: S/O;Family Marital Status: Single Support System: SO/Family Taoist/Cultural Factors: none Activities of Daily Living Communication: See demographics Living Arrangements Current Residence: Private residence Lives With: S/O; Family Support System: S/O; Family Income Information Income Source: Not Employed Financial Resource Strain How hard is it for you to pay for the very basics like food, housing, medical care and heating? N/A Housing Stability In the last 12 months, was there a time when you did not have a steady place to sleep or slept in a intermediate (including now)? Lives with FOB Transportation Needs Has the lack of Transportation kept you from medical appointments? No In the past 12 months, has the lack of transportation kept you from meetings, work, or from getting things needed for daily living? Social service referral Food Insecurity Within the past 12 months, have you worried that your food would run out before you got the money to buy more? No Stress Do you feel stress - tense, restless, nervous, or anxious, or unable to sleep at night because you mind is troubled all the time? Mood stable Referral To Financial Resources: N/A Community Resources: PNU folder given upon admission to PNU Unit Social Work:Resources CLP: N/A Medical Information 28 year old admitted for SIPEwSF. 2 Para 1. renal abnormality. Asthma. 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 Transport. Discharge Plan Home or Community Resources: PNU Admission folder given upon admission to unit Equipment: N/A Education Given: PNU admit folder and see Education Tab Additional Information: N/A Mental Health Services: N/A Developmental Delay: N/A Children's Services: N/A Normal [facility] Cobalamin (Vitamin B12) [Mas s/Vol]on 04-20-2024 Interpretation and review of laboratory results Normal [facility] Consulton 04-20-2024 Consult [facility] [address], [address] [facility] [address] Dept phone: [phone] Pablo Dorian [phone] Assessment and Recommendations Chronic maxillary sinusitis Right nasal polyposis Nasal endoscopy today - moderate inferior turbinate hypertrophy. Septum mildly deviated to the right. Decreased view of right middle meatus due to deviation but there is benign appearing nasal polyp that reaches the nasal floor. No purulence or significant swelling. Left middle meatus clear without infection, swelling, or polyposis. The right nasal polyps appear overall benign and the rightward septal deviation could be the anatomic etiology. She also endorses seasonal allergies. I recommend flonase nasal spray 1 spray to each nostril 2 times per day as long as there are no other contraindications for her or baby. 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 However, this is nonurgent and can wait until after delivery. She has seen ENT in [place] previously and would like to follow up there, I recommend in 3-6 months. Chelita Edward MD Subjective This is a 28 y.o. old female admitted for headache work up and found to have sinus abnormalities on MRI. ENT consulted for further evaluation of sinus imaging findings. Patient reports she's never had major issues with her sinuses before. She has some seasonal allergies but nothing major. She has used flonase nasal spray in the past but not recently. Her nose only started bothering her in 2nd trimester. She feels very congested at night but this gets better as she gets up and starts moving during the day. She denies nasal drainage, postnasal drip, midface pressure. Medications aspirin, 81 mg, Oral, Daily famotidine, 20 mg, Oral, BID influenza, 0.5 mL, IntraMUSCular, Once levETIRAcetam, 1,000 mg, Oral, Nightly nicotine, 1 patch, TransDERmal, Daily Followed by [START ON 05/30/2024] nicotine, 1 patch, TransDERmal, Daily NIFEdipine XL, 30 mg, Oral, BID Non-Formulary Medication, 1 Units, Oral, Daily penicillin V, 500 mg, Oral, BID vitamin, 1 tablet, Oral, Daily [START ON 04/21/2024] sertraline, 50 mg, Oral, Daily sodium chloride 0.9%, 10 mL, IntraVENous, 2 times per day Allergies No Known Allergies Problem List Patient Active Problem List Diagnosis labor in second trimester without delivery Objective Physical Exam Constitutional - alert, no acute distress, non-toxic appearing. Voice - strong and clear without breathiness. Face - normocephalic, atraumatic Eyes - normal appearing conjunctiva, no icterus Nose - normal external appearance, inferior turbinates with moderate hypertrophy, no drainage or crusting, septum mildly deviated Respiratory - normal work of breathing on room air, no audible wheezing or stridor Skin - warm and dry without rash Cranial nerves Grossly normal Results 04/17/24 MRI brain: images reviewed. Complete opacification of right maxillary sinus with somewhat expansile appearance and mild surrounding ethmoid opacification. Remainder of paranasal sinuses are clear. Mild septal deviation. There are normal sized, midline cerebral ventricles. There is no evidence of mass lesion, edema, nor hemorrhage. There is no hydrocephalus, shift, or herniation. No epidural or subdural collections are present. There is no evidence of white matter disease or ischemic change. Diffusion weighted images are negative. The hypothalamus and pituitary regions are normal. The brain stem, cerebellum, and cranial - cervical junction are normal. The globes and orbital contents are grossly normal. IMPRESSION: 1. Negative unenhanced MR scan of the brain. 2. Markedly abnormal appearance of the right maxillary sinus the sinuses completely opacified with marked bulging into the right nasal cavity. This may represent changes from mucocele or underlying polypoid lesion. Otherwise mild scattered mucosal thickening right ethmoid air cells. Procedure Procedure: Nasal endoscopy Indications: right maxillary sinus opacification on imaging, evaluate for polyposis Details: Verbal informed consent was obtained and the patient elected to proceed. The endoscope was advanced through both sides of the nose. Examination of the nasal cavities was performed. Patient tolerated the procedure well. There were no complications. Findings: moderate inferior turbinate hypertrophy. Septum mildly deviated to the right. Decreased view of right middle meatus due to deviation but there is benign appearing nasal polyp that reaches the nasal floor. No purulence or significant swelling. Left middle meatus clear without infection, swelling, or polyposis. Normal [facility] Consult ---- Attestation signed by Linda Benoit MD at 04/20/2024 3:19 PM I have seen, examined and evaluated the patient with the resident physician or nurse practitioner under my direct supervision. I have reviewed the resident physician's or nurse practitioner's note and agree with the assessment and plan of care as documented with the following addendum. HPI, social history, family history, and ROS have been reviewed and verified. Briefly, patient is a 28 yo female with past medical history of NF1, epilepsy, and cHTN presents with MADRID and HTN in setting pf (26 weeks). Patient was started on Mg and given labetalol per OB for concern of pre-E. Thus far, pre-E labs have been negative. MRI/A/V have been completed with no acute abn or new NF lesions. No LVO, aneurysm, or SVT on vascular imaging. MADRID noted to be diffuse, aching in nature. Pain is moderate and intermittent-patien t feels it seems to fluctuate with her BP's. She feels when her BP is higher, MADRID will be worse. She also endorses tingling of b/l UE and around eyes. She does also have a history of seizures, but states it has been many years since last seizure. She is LEV 1000mg BID and tolerates without difficulty. She endorses compliance. She does not feel that current symptoms of MADRID or paresthesia are similar to seizures or seizure auras. Neurologic exam as below (Examined independently, any additions, pertinent findings, or revisions noted here) Assessment and Plan: 28 yo female with past medical history of NF1, epilepsy, and cHTN presents with MADRID and HTN in setting pf (26 weeks). MADRID -In the setting of cHTN vs pre-E -Imaging negative for acute intracranial abn or significant vascular pathology -Concerns include primary MADRID vs secondary to HTN or pre-E -Currently receiving tylenol with some benefit -Could try IVSM 125mg x 1 to see if improved symptom control (if ok with OB) -BP management and pre-E monitoring per OB Paresthesia -Possibly related to Mg vs BP? -B12, TSH, A1c pending-will defer to primary if abnormal Hx of seizures -No recent episodes -On LEV 1000mg BID -Will check level here so can be followed as outpt by patient's neurologist -Maintain seizure precautions No further neurology workup required at this time. Will sign off, please call if questions. I spent total time 25 minutes reviewing previous notes, test results, and face to face with the patient discussing the diagnosis and importance of compliance with the treatment plan as well as documenting on the day of the visit. ---- General Neurology Consult Patient: Pablo Alarcon Date of : 1995 Acct: [id number] PCP: Tomás Dickey Date of Admission: 04/17/2024 Date of Service: Pt seen/examined on 04/20/24 Chief Complaint: Headache/History of neurofibromatosis History Of Present Illness: 28 y.o. female with past medical history significant for neurofibromatosis (type 1), and seizures presents with complaint/s of headache, and HTN. The patient was transferred to [facility] from [place] with a headache and severe range BP. She was started on magnesium and given labetalol 20mg with resolution of severe range. Patient has a history of cHTN but stopped her BP medication once becoming . 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 She reports that this has been stable for the last 8 years. Patient has a history of seizures and is on Keppra 1000mg BID. Last seizure was years ago. Patient also has a history of chronic migraines. Patient follows with outpatient neurology, Dr. Garg, in [facility]. Patient states that for the past couple of days she has had a headache that has been waxing and waning. Along with the headache, she has been having intermittent tingling in her bilateral hands, and around her mouth. Past Medical History: Past Medical History: Diagnosis Date Neurofibromatosis, type 1 ([facility]) ([facility]) Past Surgical History: Past Surgical History: Procedure Laterality Date TONSILLECTOMY (HISTORICAL) Home Medications: Prior to Admission medications Medication Sig Start Date End Date Taking? Authorizing Provider levETIRAcetam (Keppra) 100 MG/ML solution Yes Historical Provider, penicillin V (Veetid) 250 MG tablet Take 500 mg by mouth 2 times daily. FOR DENTAL PROCEDURE Yes Historical Provider, penicillin V (Veetid) 250 MG/5ML suspension Take 500 mg by mouth. Yes Historical Provider, [facility]-3 (Vitafusion ) 0.18-32.5 MG chewable tablet Chew 2 capsules in the morning. GUMMIES-AFTER BREAKFAST OR LUNCH. Yes Historical Provider, [facility] (more content not included)... Normal [facility] HEMOGLOBIN A1Con 04-20-2024 Glucose [Mass/Vol] 88 mg/dL Normal [facility] Comment on above: Performed By: #### L [id number] ####Nursing Scheduler: MELANI STEINBERG ([phone])[facility] ([facility])[address] [place] [address] HbA1c (Bld) [Mass fraction] 4.7 % Normal <5.7 [facility] Comment on above: Result Comment: Norm al less than 5.7% Prediabetes 5.7% to 6.4% Diabetes 6.5% or higher --HgbA1C levels may not be accurate in patients who have renal disease, received recent blood transfusions, are anemic, or who have dyshemoglobinemia. Performed By: #### L [id number] ####Nursing Scheduler: MELANI STEINBERG ([phone])[facility] [place] [address] LEVETIRACETAM LEVEL (BKR [facility])on 04-20-2024 [facility] LEVETIRACETAM, IMMUNOASSAY <2.0 Low 6.0-46.0 [facility] Comment on above: Result Comment: Brivaracetam (Briviact(R), Rikelta(R)) exhibits significant cross-reactivity in the Levetiracetam (Keppra(R), Spritam(R)) immunoassay. If Brivaracetam has been prescribed, order test code 08788 Levetiracetam by LCMSMS. Test Performed by [facility], [employer] [facility], [address] [place] [address] Arthur Hunter M.D., Ph.D., Director of Laboratories , [place] [id number] Performed By: #### L [id number] #### Nursing Scheduler: MELANI STEINBERG ([phone]) [facility] ([facility] [address] [place] [address] Laboratory - Chemistry and C hemistry - challengeon 04-20-2024 Cobalamin (Vitamin B12) [Mass/Vol] 436 pg/mL 239 - 931 pg/mL [facility] Average glucose Estimated from glycated hemoglobin (Bld) [Mass/Vol] 88 mg/dL [facility] TSH Qn 3.679 m[IU]/L [facility] h Glucose [Mass/Vol] 111 mg/dL High 70 - 100 mg/dL [facility] Glucose [Mass/Vol] 105 mg/dL High 70 - 100 mg/dL [facility] Glucose [Mass/Vol] 109 mg/dL High 70 - 100 mg/dL [facility] - Hematology and Cell countson 04-20-2024 HbA1c (Bld) [Mass fraction] 4.7 % [facility] - 5.7 % [facility] Comment on above: Normal less than 5.7 % Prediabetes 5.7% to 6.4% Diabetes 6.5% or higher --HgbA1C levels may not be accurate in patients who have renal disease, received recent blood transfusions, are anemic, or who have dyshemoglobinemia. MR Brain WO contraston 04-20 1. Negative unenhanced MR scan of the brain. 2. Markedly abnormal appearance of the right maxillary sinus the sinuses completely opacified with marked bulging into the right nasal cavity. This may represent changes from mucocele or underlying polypoid lesion. Otherwise mild scattered mucosal thickening right ethmoid air cells. Report Dictated on Electronically Signed By: Maged Valdivia MD Electronically Signed Date/Time: 04/20/2024 3:16 AM EDT [facility] Patient Name: PABLO ALARCON : 1995 Exam Date/Time: 04/19/2024 20:31 Procedure: MR BRAIN WO CONTRAST Ordering Provider: DURON HASAN Reason For Exam: Headache, new or worsening () HISTORY: severe headache. MR scan of the brain was performed with sagittal T1 weighted, axial T2 weighted and FLAIR scans, and axial diffusion and susceptibility weighted scans. There are normal sized, midline cerebral ventricles. There is no evidence of mass lesion, edema, nor hemorrhage. There is no hydrocephalus, shift, or herniation. No epidural or subdural collections are present. There is no evidence of white matter disease or ischemic change. Diffusion weighted images are negative. The hypothalamus and pituitary regions are normal. The brain stem, cerebellum, and cranial - cervical junction are normal. The globes and orbital contents are grossly normal. [facility] Maged Valdivia MD - 04/20/2024 Patient Name: PABLO ALARCON : 1995 Exam Date/Time: 04/19/2024 20:31 Procedure: MR BRAIN WO CONTRAST Ordering Provider: DURON HASAN Reason For Exam: Headache, new or worsening () HISTORY: severe headache. MR scan of the brain was performed with sagittal T1 weighted, axial T2 weighted and FLAIR scans, and axial diffusion and susceptibility weighted scans. There are normal sized, midline cerebral ventricles. There is no evidence of mass lesion, edema, nor hemorrhage. There is no hydrocephalus, shift, or herniation. No epidural or subdural collections are present. There is no evidence of white matter disease or ischemic change. Diffusion weighted images are negative. The hypothalamus and pituitary regions are normal. The brain stem, cerebellum, and cranial - cervical junction are normal. The globes and orbital contents are grossly normal. IMPRESSION: 1. Negative unenhanced MR scan of the brain. 2. Markedly abnormal appearance of the right maxillary sinus the sinuses completely opacified with marked bulging into the right nasal cavity. This may represent changes from mucocele or underlying polypoid lesion. Otherwise mild scattered mucosal thickening right ethmoid air cells. Report Dictated on Electronically Signed By: Maged Valdivia MD Electronically Signed Date/Time: 04/20/2024 3:16 AM [facility] MR Brain WO contrastOrdered By: Maged Valdivia on 04-20-2024 [facility] Work Phone: MRA Head vessels WO contrast on 04-20-2024 1. Negative MR angiogram of the intracranial vessels. Report Dictated on Electronically Signed By: Maged Valdivia MD Electronically Signed Date/Time: 04/20/2024 3:13 AM [facility] Patient Name: PABLO ALARCON : 1995 [facility]#: [id number] Exam Date/Time: 04/19/2024 20:32 Procedure: MR HEAD ANGIO WO IV CONTRAST Ordering Provider: DURON HASAN Reason For Exam: Headache, new or worsening () HISTORY: Severe headache. 3D time of flight MR angiogram of the intracranial vessels was performed, with multiple maximum intensity projection images and review of the primary partitions. There is patent flow in the right and left internal carotid arteries, the distal right and left vertebral arteries, and basilar artery. There is no significant vertebrobasilar nor carotid siphon stenosis. There is good filling of the right and left anterior, middle, and posterior cerebral distribution vessels. There is no critical intracranial stenosis. There is no evidence of aneurysm or vascular malformation. origin left posterior cerebral artery. [facility] Maged Valdivia MD - 04/20/2024 Patient Name: PABLO ALARCON : 1995 Exam Date/Time: 04/19/2024 20:32 Procedure: MR HEAD ANGIO WO IV CONTRAST Ordering Provider: DURON HASAN Reason For Exam: Headache, new or worsening () HISTORY: Severe headache. 3D time of flight MR angiogram of the intracranial vessels was performed, with multiple maximum intensity projection images and review of the primary partitions. There is patent flow in the right and left internal carotid arteries, the distal right and left vertebral arteries, and basilar artery. There is no significant vertebrobasilar nor carotid siphon stenosis. There is good filling of the right and left anterior, middle, and posterior cerebral distribution vessels. There is no critical intracranial stenosis. There is no evidence of aneurysm or vascular malformation. origin left posterior cerebral artery. IMPRESSION: 1. Negative MR angiogram of the intracranial vessels. Report Dictated on Electronically Signed By: Maged Valdivia MD Electronically Signed Date/Time: 04/20/2024 3:13 AM EDT [facility] Negative MR venogram of the intracranial veins. Report Dictated on Electronically Signed By: Maged Valdivia MD Electronically Signed Date/Time: 04/20/2024 3:12 AM EDT [facility] Patient Name: PABLO ALARCON : 1995 Exam Date/Time: 04/19/2024 20:32 Procedure: MRV HEAD WO CONTRAST Ordering Provider: DURON HASAN Reason For Exam: Headache, new or worsening () Reasons for examination: Headache. 2D time of flight MR venogram of the intracranial vessels was performed with coronal and oblique sagittal slabs, with multiple maximum intensity projection images and review of the primary partitions. There is patent flow in the superior sagittal sinus, superficial cortical veins, inferior sagittal sinus, internal cerebral veins, vein of [place], and straight sinus. There right and left transverse sinus show no abnormalities There is no evidence to suggest acute dural sinus thrombosis. The visualized portions of the petrosal sinuses demonstrate flow as well. There is no critical venous stenosis. There is no evidence to suggest vascular malformation. [facility] Maged Valdivia MD - 04/20/2024 Patient Name: PABLO ALARCON : 1995 Exam Date/Time: 04/19/2024 20:32 Procedure: MRV HEAD WO CONTRAST Ordering Provider: DURON HASAN Reason For Exam: Headache, new or worsening () Reasons for examination: Headache. 2D time of flight MR venogram of the intracranial vessels was performed with coronal and oblique sagittal slabs, with multiple maximum intensity projection images and review of the primary partitions. There is patent flow in the superior sagittal sinus, superficial cortical veins, inferior sagittal sinus, internal cerebral veins, vein of [place], and straight sinus. There right and left transverse sinus show no abnormalities There is no evidence to suggest acute dural sinus thrombosis. The visualized portions of the petrosal sinuses demonstrate flow as well. There is no critical venous stenosis. There is no evidence to suggest vascular malformation. IMPRESSION: Negative MR venogram of the intracranial veins. Report Dictated on Electronically Signed By: Maged Valdivia MD Electronically Signed Date/Time: 04/20/2024 3:12 AM EDT [employer] No Panel Informationon 04-20 [facility] Interpretation and review of laboratory results Abnormal [facility] Performed by: [facility], [address] [place] [id number] CLIA ID: [id number] [facility] [facility] Interpretation and review of laboratory results Abnormal ustyme [facility] Performed by: [facility], [address] [place] [id number] CLIA ID: [id number] [facility] Interpretation and review of laboratory results Abnormal ustyme [facility] Performed by: [facility], [address] [place] [address] CLIA ID: [id number] [facility] 1. Myers live intrauterine at 25w 6d. 2. Normal anatomy, with limitations as noted above. 3. biometry consistent with clinically established JOE. 4. Normal appearing posterior placenta. 5. Biophysical profile is 02/12. [facility] RADIOLOGY SYSTEM OBSTETRICS REPORT (Signed Final 04/20/2024 10:42 am) PATIENT INFO: ID #: [id number] : [birth year] (28 yrs)(F) Name: PABLO Visit Date: 04/20/2024 10:18 am DORIAN PERFORMED BY: Attending: Bere Durant Performed By: Sirena Dong RDIA Referred By: ROSALIA BE Location: [facility] IP Visit Type: Inpatient - Hospital SERVICE(S) PROVIDED: BPP w/out NST 64964 US Level II complete (Targeted OB) 18683 INDICATIONS: Chronic hypertension, 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 Cord Insertion: Not Visualized Amniotic Fluid APRIL FV: Within normal limits APRIL Sum(cm) %Tile Largest Pocket(cm) 14.4 47 5.2 RUQ(cm) RLQ(cm) LUQ(cm) LLQ(cm) 5.2 2.7 3.8 2.7 BIOPHYSICAL EVALUATION: Amniotic F.V: Within normal limits F. Tone: Observed F. Movement: Observed Score: 02/12 F. Breathing: Observed BIOMETRY: BPD: 69.6 mm G.Age: 28w 0d 95 % OFD: 84.8 mm HC: 246.6 mm G.Age: 26w 5d 58 % AC: 219.6 mm G.Age: 26w 3d 59 % FL: 46.3 mm G.Age: 25w 3d 22 % HUM: 46.3 mm G.Age: 27w 2d 79 % LV: 5.23 mm CI: 82.1 % 70 - 86 FL/HC: 18.8 % 18.6 - 20.4 HC/AC: 1.12 1.04 - 1.22 FL/BPD: 66.5 % 71 - 87 FL/AC: 21.1 % 20 - 24 Est. FW: 901 gm 2 lb 53 % GESTATIONAL AGE: Clinical JOE: 25w 6d JOE: 07/28/24 U/S Today: w 5d JOE: 07/22/24 Best: w 6d Det. By: Clinical JOE JOE: 07/28/24 TARGETED ANATOMY: Central Nervous System Calvarium/Cranial V.: Normal appearance Intracranial Patricia: Normal appearance Cavum: Normal appearance Parenchyma: Normal appearance Lateral Ventricles: Normal appearance Choroid Plexus: Normal appearance Cereb./Vermis: Normal appearance Cisterna Magna: Normal appearance Corpus Callosum: Normal appearance Midline Falx: Normal appearance Spine Cervical: Suboptimal views Thoracic: Suboptimal views Lumbar: Suboptimal views Sacral: Suboptimal views Shape/Curvature: Suboptimal views Head/Neck Face: Normal appearance Lips: Normal appearance Neck: Suboptimal views Nasal Bone: Present Palate: Normal appearance Profile: Normal appearance Orbits/Eyes: Normal appearance Mandible: Normal appearance Maxilla: Normal appearance Thorax Thoracic Contour: Normal appearance Lungs: Normal appearance 4 Chamber View: Normal appearance Cardiac Activity: Observed Cardiac Rhythm: Normal appearance Cardiac Situs: Normal appearance Rt Outflow Tract: Normal appearance Lt Outflow Tract: Suboptimal views Aortic Arch: Suboptimal views Ductal Arch: Normal appearance SVC: Normal appearance Interventr. Septum: Suboptimal views Cardiac [place]: Normal appearance Diaphragm: Normal appearance 3 Vessel View: Normal appearance 3 V Trachea View: Suboptimal views IVC: Normal appearance Crossing: (more content not included)... [facility] RADIOLOGY SYSTEM Bere Durant MD - 04/20/2024 OBSTETRICS REPORT (Signed Final 04/20/2024 10:42 am) PATIENT INFO: ID #: [id number] : [birth year] (28 yrs)(F) Name: PABLO Visit Date: 04/20/2024 10:18 am DORIAN PERFORMED BY: Attending: Bere Durant Performed By: Sirena Dong RDMS Referred By: ROSALIA BE Location: [facility] IP Visit Type: Inpatient - Hospital SERVICE(S) PROVIDED: BPP w/out NST 95616 Level II complete (Targeted OB) 18053 INDICATIONS: Chronic hypertension, 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 Cord Insertion: Not Visualized Amniotic Fluid APRIL FV: Within normal limits APRIL Sum(cm) %Tile Largest Pocket(cm) 14.4 47 5.2 RUQ(cm) RLQ(cm) LUQ(cm) LLQ(cm) 5.2 2.7 3.8 2.7 BIOPHYSICAL EVALUATION: Amniotic F.V: Within normal limits F. Tone: Observed F. Movement: Observed Score: 02/12 F. Breathing: Observed BIOMETRY: BPD: 69.6 mm G.Age: 28w 0d 95 % OFD: 84.8 mm HC: 246.6 mm G.Age: 26w 5d 58 % AC: 219.6 mm G.Age: 26w 3d 59 % FL: 46.3 mm G.Age: 25w 3d 22 % HUM: 46.3 mm G.Age: 27w 2d 79 % LV: 5.23 mm CI: 82.1 % 70 - 86 FL/HC: 18.8 % 18.6 - 20.4 HC/AC: 1.12 1.04 - 1.22 FL/BPD: 66.5 % 71 - 87 FL/AC: 21.1 % 20 - 24 Est. FW: 901 gm 2 lb 53 % GESTATIONAL AGE: Clinical JOE: 25w 6d JOE: 07/28/24 U/S Today: w 5d JOE: 07/22/24 Best: w 6d Det. By: Clinical JOE JOE: 07/28/24 TARGETED ANATOMY: Central Nervous System Calvarium/Cranial V.: Normal appearance Intracranial Patricia: Normal appearance Cavum: Normal appearance Parenchyma: Normal appearance Lateral Ventricles: Normal appearance Choroid Plexus: Normal appearance Cereb./Vermis: Normal appearance Cisterna Magna: Normal appearance Corpus Callosum: Normal appearance Midline Falx: Normal appearance Spine Cervical: Suboptimal views Thoracic: Suboptimal views Lumbar: Suboptimal views Sacral: Suboptimal views Shape/Curvature: Suboptimal views Head/Neck Face: Normal appearance Lips: Normal appearance Neck: Suboptimal views Nasal Bone: Present Palate: Normal appearance Profile: Normal appearance Orbits/Eyes: Normal appearance Mandible: Normal appearance Maxilla: Normal appearance Thorax Thoracic Contour: Normal appearance Lungs: Normal appearance 4 Chamber View: Normal appearance Cardiac Activity: Observed Cardiac Rhythm: Normal appearance Cardiac Situs: Normal appearance Rt Outflow Tract: Normal appearance Lt Outflow Tract: Suboptimal views Aortic Arch: Suboptimal views Ductal Arch: Normal appearance SVC: Normal appearance Interventr. Septum: Suboptimal views Cardiac [place]: Normal appearance Diaphragm: Normal appearance 3 Vessel View: Normal appearance 3 V Trachea View: Suboptimal views IVC: Normal appearance Crossing: Suboptimal views Abdomen Ventral Wall: Normal appearance Cord Insertion: Normal appearance Situs: Normal appearance Stomach: Normal appearance Liver: Normal appearance Lt Kidney: Normal appearance Rt Kidney: Normal appearance Bladder: Normal appearance Bowel: Normal appearance Spleen: Normal appearance Extremities Lt Humerus: Normal appearance Rt Humerus: Normal appearance Lt Forearm: Normal appearance Rt Forearm: Normal appearance Lt Hand: Normal appearance Rt Hand: Normal appearance Lt Femur: Normal appearance Rt Femur: Normal appearance Lt Lower Leg: Normal appearance Rt Lower Leg: Normal appearance Lt Foot: Normal appearance Rt Foot: Normal appearance Other Umbilical Cord: Normal 3-vessel Genitalia: Normal appearance Comment: Rt ankle and renal arteries sub-op RECOMMENDATIONS: See inpatient chart. Ultrasound is (more content not included)... [facility] Radiology Study observation (narrative) [facility] He alth No Panel InformationOrdered By: Bere Durant on 04-20-2024 [facility] Work Phone: Progress Noteon 04-20-2024 Progress Note Paged by Rn that the patient had a headache. Went to to bedside to evaluate. She mentions that she just has a headache and feels dizzy which has occurred intermittently for the past few weeks per the patient. She also mentions that she does have dyspnea but that it is largely due to her sinuses. Denies chest pain or epigastric pain. She also denies visual changes and mentions that it is more related to dizziness. Neuro exam reveals one beat of clonus in the bilateral achilles, although 2+ in the patellas bilaterally. Strength and sensation intact. No other focal deficits noted. Will give Reglan for headache at this time and continue to monitor. Santhosh Miranda MD 04/20/2024 2:05 PM Normal [facility] Progress Note ---- Attestation signed by Bere Durant MD at 04/20/2024 4:38 PM MFM ATTENDING I have personally obtained a history and examined the patient on morning rounds. I agree with the assessment and plan as documented in the resident's note. The patient is a 28 y.o. 25w6d now HD#4, admitted for HTN, MADRID in context of complex medical history. See my extensive note from admission. 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 She was transferred from [place] (receives her PNC in [place]) for MADRID and severe BP. She has known CHTN and was taken off her meds at the start of . She also has chronic migraines. She is s/p magnesium and BMZ for concern for possible preeclampsia. Very challenging to differentiate but since starting Procardia, Bps have been much improved. Labs are normal and 24hr urine protein is normal at 136mg. Therefore, I suspect this is likey related to her CHTN and h/o migraines rather than preeclampsia. Given her complex neuro history and neuro complaints, Neurology was consulted and imaging obtained with no concern for acute change in her NF. On MRI she was noted to have near occlusion of right sinus cavity and mucosal thickening. We were finally able to review her records from her OB and her neurologist. She has had low risk NIPT with [facility]. She understands the risk of 50% to her child and plans testing after like she did with her first son. She is not immune to rubella and otherwise labs are normal. No baseline proteinuria assessment and has not been on bASA prior to this admission. She did indeed have HTN noted on records in 140s/90s. Today she reports an acute episode of dizziness. BP was normal at that time. EKG obtained and sinus rhythm. Orthostats not positive. Short lived and reports this has been going on for weeks. Her and FOB have a learning disability and she reports father has autism. She denies any other OB complaints or Preeclampsia symptoms. Vitals: 04/20/24 1502 BP: 137/99 Pulse: 107 Resp: Temp: SpO2: Alert and oriented, NAD RRR No MRG LUE deformity Gravid nontender abdomen Current Monitoring Plan: 1hr TID NST NST: reactive Ultrasound: Normal growth and anatomy: EFW 901g (53%), BPP 8/8. Breech Lab Results Component Value Date WBC 21.8 (H) 04/17/2024 HGB 11.3 (L) 04/17/2024 HCT 35.2 04/17/2024 MCV 83.6 04/17/2024 PLT 317 04/17/2024 Lab Results Component Value Date GLUCOSE 108 (H) 04/17/2024 CALCIUM 7.8 (L) 04/17/2024 NA 135 04/17/2024 K 3.9 04/17/2024 CO2 20 (L) 04/17/2024 CL 104 04/17/2024 BUN 7 04/17/2024 CREATININE 0.52 04/17/2024 Lab Results Component Value Date ALT 34 04/17/2024 AST 40 04/17/2024 ALKPHOS 190 (H) 04/17/2024 BILITOT 0.3 04/17/2024 24hr urine protein: 136mg Plan: Still have low suspicion for superimposed preeclampsia- has other conditions to explain her symptoms and known CHTN. Labs and 24hr urine protein negative. Consulted ENT and recommended flonase with possible surgical correction postnatally if not improved. Unexplained dizzy spells: . Discussed with patient that we are unsure of etiology but we can rule out a dangerous NURSE MIDWIFE or cardiac abnormality. Had MRI/MRA/V already and now normal EKG. Will repeat labs and obtain echocaridiogram. Some reference in prior chart of POTS, but patient states she has never been told this and she has never had these symptoms prior to . Orthostats were not indicative of orthostatic hypotension. In fact BP increased with standing. Continue Procardia XL 30mg BID and bASA for now. If Echo is normal and BP remains controlled, may be a candidate for discharge. Patient has appts later this week to switch OB providers and be seen via [facility]. 35 minutes spent in total floor time today for review of records, patient interview and exam, documentation and coordination of care with care teams. Bere Durant MD ---- Maternal Medicine Service Resident Progress Note 04/20/2024 5:51 AM 04/17/2024 Hospital Day: 4 Pablo Alarcon, 28 y.o. 25w6d Patient has been seen and examined. Pt resting comfortably this morning and not disturbed. Vitals: 04/19/24 1229 04/19/24 1625 04/19/24 2105 04/20/24 0226 BP: 142/99 156/107 138/90 121/72 BP Location: Patient Position: Pulse: 102 99 111 97 Resp: 16 16 18 16 Temp: 36.7 ?C (98.1 ?F) 36.7 ?C (98.1 ?F) 36.6 ?C (97.8 ?F) 36.7 ?C (98 ?F) TempSrc: Oral Oral Oral Oral SpO2: 98% 97% Weight: Height: FHT: 150, moderate variability Accels: absent Decels: absentabsent (more content not included)... Normal [facility] THYROID STIMULATING HORMONEo n 04-20-2024 THYROID STIMULATING HORMONE 3.679 uIU/mL Normal 0.465-4.680 [facility] Comment on above: Performed By: #### L [id number], [id number] ####Nursing Scheduler: MELANI STEINBERG ([phone])[facility] ([facility] TSH Qnon 04-20-2024 Interpretation and review of laboratory results Normal [facility] BIOPHYSICAL PROFILE WO NON STRESS TESTINGon 04-20-2024 US BIOPHYSICAL PROFILE WO NON STRESS TESTING OBSTETRICS REPORT (Signed Final 04/20/2024 10:42 am) PATIENT INFO: ID #: [id number] : [birth year] (28 yrs)(F) Name: PABLO Visit Date: 04/20/2024 10:18 am DORIAN PERFORMED BY: Attending: Bere Durant Performed By: Sirena Dong RDMS Referred By: ROSALIA BE Location: [facility] IP Visit Type: Inpatient - Hospital SERVICE(S) PROVIDED: ASIA w/out NST 89110 Level II complete (Targeted OB) 87776 INDICATIONS: Chronic hypertension, 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 Cord Insertion: Not Visualized Amniotic Fluid APRIL FV: Within normal limits APRIL Sum(cm) %Tile Largest Pocket(cm) 14.4 47 5.2 RUQ(cm) RLQ(cm) LUQ(cm) LLQ(cm) 5.2 2.7 3.8 2.7 BIOPHYSICAL EVALUATION: Amniotic F.V: Within normal limits F. Tone: Observed F. Movement: Observed Score: 02/12 F. Breathing: Observed BIOMETRY: BPD: 69.6 mm G.Age: 28w 0d 95 % OFD: 84.8 mm HC: 246.6 mm G.Age: 26w 5d 58 % AC: 219.6 mm G.Age: 26w 3d 59 % FL: 46.3 mm G.Age: 25w 3d 22 % HUM: 46.3 mm G.Age: 27w 2d 79 % LV: 5.23 mm CI: 82.1 % 70 - 86 FL/HC: 18.8 % 18.6 - 20.4 HC/AC: 1.12 1.04 - 1.22 FL/BPD: 66.5 % 71 - 87 FL/AC: 21.1 % 20 - 24 Est. FW: 901 gm 2 lb 53 % GESTATIONAL AGE: Clinical JOE: w 6d JOE: 07/28/24 U/S Today: 5d JOE: 07/22/24 Best: 6d Det. By: Clinical JOE JOE: 07/28/24 TARGETED ANATOMY: Central Nervous System Calvarium/Cranial V.: Normal appearance Intracranial Patricia: Normal appearance Cavum: Normal appearance Parenchyma: Normal appearance Lateral Ventricles: Normal appearance Choroid Plexus: Normal appearance Cereb./Vermis: Normal appearance Cisterna Magna: Normal appearance Corpus Callosum: Normal appearance Midline Falx: Normal appearance Spine Cervical: Suboptimal views Thoracic: Suboptimal views Lumbar: Suboptimal views Sacral: Suboptimal views Shape/Curvature: Suboptimal views Head/Neck Face: Normal appearance Lips: Normal appearance Neck: Suboptimal views Nasal Bone: Present Palate: Normal appearance Profile: Normal appearance Orbits/Eyes: Normal appearance Mandible: Normal appearance Maxilla: Normal appearance Thorax Thoracic Contour: Normal appearance Lungs: Normal appearance 4 Chamber View: Normal appearance Cardiac Activity: Observed Cardiac Rhythm: Normal appearance Cardiac Situs: Normal appearance Rt Outflow Tract: Normal appearance Lt Outflow Tract: Suboptimal views Aortic Arch: Suboptimal views Ductal Arch: Normal appearance SVC: Normal appearance Interventr. Septum: Suboptimal views Cardiac [place]: Normal appearance Diaphragm: Normal appearance 3 Vessel View: Normal appearance 3 V Trachea View: Suboptimal views IVC: Normal appearance Crossing: Suboptimal views Abdomen Ventral Wall: Normal appearance Cord Insertion: Normal appearance Situs: Normal appearance Stomach: Normal appearance Liver: Normal appearance Lt Kidney: Normal appearance Rt Kidney: Normal appearance Bladder: Normal appearance Bowel: Normal appearance Spleen: Normal appearance Extremities Lt Humerus: Normal appearance Rt Humerus: Normal appearance Lt Forearm: Normal appearance Rt Forearm: Normal appearance Lt Hand: Normal appearance Rt Hand: Normal appearance Lt Femur: Normal appearance Rt Femur: Normal appearance Lt Lower Leg: Normal appearance Rt Lower Leg: Normal appearance Lt Foot: Normal appearance Rt Foot: Normal appearance Other Umbilical Cord: Normal 3-vessel Genitalia: Normal appearance Comment: Rt ankle and renal arteries sub-op RECOMMENDATIONS: See inpatient chart. Ultrasound is not diagnostic of chromosomal aneuploidy and does not detect all subtle defects. Normal ultrasound findings do not (more content not included)... Normal [facility] US OB 14+ WEEKS SINGLE FETUS MATERNAL EVAL TRANSABDOMINALon 04-20-2024 US OB 14+ WEEKS SINGLE FETUS MATERNAL EVAL TRANSABDOMINAL OBSTETRICS REPORT (Signed Final 04/20/2024 10:42 am) PATIENT INFO: ID #: [id number] : [birth year] (28 yrs)(F) Name: PABLO Visit Date: 04/20/2024 10:18 am DORIAN PERFORMED BY: Attending: Bere Durant Performed By: Sirena Dong [facility] Referred By: ROSALIA BE Location: [facility] IP Visit Type: Inpatient - Hospital SERVICE(S) PROVIDED: ASIA w/out NST 35081 US Level II complete (Targeted OB) 49363 INDICATIONS: Chronic hypertension, 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 Cord Insertion: Not Visualized Amniotic Fluid APRIL FV: Within normal limits APRIL Sum(cm) %Tile Largest Pocket(cm) 14.4 47 5.2 RUQ(cm) RLQ(cm) LUQ(cm) LLQ(cm) 5.2 2.7 3.8 2.7 BIOPHYSICAL EVALUATION: Amniotic F.V: Within normal limits F. Tone: Observed F. Movement: Observed Score: 02/12 F. Breathing: Observed BIOMETRY: BPD: 69.6 mm G.Age: 28w 0d 95 % OFD: 84.8 mm HC: 246.6 mm G.Age: 26w 5d 58 % AC: 219.6 mm G.Age: 26w 3d 59 % FL: 46.3 mm G.Age: 25w 3d 22 % HUM: 46.3 mm G.Age: 27w 2d 79 % LV: 5.23 mm CI: 82.1 % 70 - 86 FL/HC: 18.8 % 18.6 - 20.4 HC/AC: 1.12 1.04 - 1.22 FL/BPD: 66.5 % 71 - 87 FL/AC: 21.1 % 20 - 24 Est. FW: 901 gm 2 lb 53 % GESTATIONAL AGE: Clinical JOE: w 6d JOE: 07/28/24 U/S Today: 5d JOE: 07/22/24 Best: 6d Det. By: Clinical JOE JOE: 07/28/24 TARGETED ANATOMY: Central Nervous System Calvarium/Cranial V.: Normal appearance Intracranial Patricia: Normal appearance Cavum: Normal appearance Parenchyma: Normal appearance Lateral Ventricles: Normal appearance Choroid Plexus: Normal appearance Cereb./Vermis: Normal appearance Cisterna Magna: Normal appearance Corpus Callosum: Normal appearance Midline Falx: Normal appearance Spine Cervical: Suboptimal views Thoracic: Suboptimal views Lumbar: Suboptimal views Sacral: Suboptimal views Shape/Curvature: Suboptimal views Head/Neck Face: Normal appearance Lips: Normal appearance Neck: Suboptimal views Nasal Bone: Present Palate: Normal appearance Profile: Normal appearance Orbits/Eyes: Normal appearance Mandible: Normal appearance Maxilla: Normal appearance Thorax Thoracic Contour: Normal appearance Lungs: Normal appearance 4 Chamber View: Normal appearance Cardiac Activity: Observed Cardiac Rhythm: Normal appearance Cardiac Situs: Normal appearance Rt Outflow Tract: Normal appearance Lt Outflow Tract: Suboptimal views Aortic Arch: Suboptimal views Ductal Arch: Normal appearance SVC: Normal appearance Interventr. Septum: Suboptimal views Cardiac [place]: Normal appearance Diaphragm: Normal appearance 3 Vessel View: Normal appearance 3 V Trachea View: Suboptimal views IVC: Normal appearance Crossing: Suboptimal views Abdomen Ventral Wall: Normal appearance Cord Insertion: Normal appearance Situs: Normal appearance Stomach: Normal appearance Liver: Normal appearance Lt Kidney: Normal appearance Rt Kidney: Normal appearance Bladder: Normal appearance Bowel: Normal appearance Spleen: Normal appearance Extremities Lt Humerus: Normal appearance Rt Humerus: Normal appearance Lt Forearm: Normal appearance Rt Forearm: Normal appearance Lt Hand: Normal appearance Rt Hand: Normal appearance Lt Femur: Normal appearance Rt Femur: Normal appearance Lt Lower Leg: Normal appearance Rt Lower Leg: Normal appearance Lt Foot: Normal appearance Rt Foot: Normal appearance Other Umbilical Cord: Normal 3-vessel Genitalia: Normal appearance Comment: Rt ankle and renal arteries sub-op RECOMMENDATIONS: See inpatient chart. Ultrasound is not diagnostic of chromosomal aneuploidy and does not detect all subtle defects. Normal ultrasound findings do not (more content not included)... Normal [facility] VITAMIN B12on 04-20-2024 Cobalamin (Vitamin B12) [Mass/Vol] 436 pg/mL Normal 239-931 [facility] Comment on above: Performed By: #### L [id number], [id number] ####Nursing Scheduler: MELANI STEINBERG ([id number])[facility] ([facility])[address] [place] [address] Bacteria identified Cx Nom ( U)Ordered By: Jackie Whitten on 04-19-2024 Interpretation and review of laboratory results Normal [facility] Laboratory - Chemistry and C hemistry - challengeon 04-19-2024 Glucose [Mass/Vol] 119 mg/dL High 70 - 100 mg/dL [facility] Glucose [Mass/Vol] 176 mg/dL High 70 - 100 mg/dL [facility] Glucose [Mass/Vol] 128 mg/dL High 70 - 100 mg/dL [facility] Protein (24H U) [Mass/Time] 136 [facility] Glucose [Mass/Vol] 128 mg/dL High 70 - 100 mg/dL [facility] Laboratory - Microbiology an d Antimicrobial susceptibilityOrdered By: Jackie Whitten on 04-19-2024 Bacteria identified Cx Nom (U) Normal urogenital chepe present [facility] MR Brain WO contraston 04-19 Radiology Study observation (narrative) Gil Willoughby alth MRA Head vessels WO contrast on 04-19-2024 Radiology Study observation (narrative) Gil Willoughby alth Radiology Study observation (narrative) Gil Willoughby alth No Panel Informationon 04-19 Interpretation and review of laboratory results Abnormal [facility] Performed by: [facility], [address] [place] [address] CLIA ID: [id number] [facility] Interpretation and review of laboratory results Abnormal [facility] Performed by: [facility], [address] [place] [address] CLIA ID: [id number] [facility] Interpretation and review of laboratory results Abnormal [facility] Performed by: [facility], [address] [place] [address] CLIA ID: [id number] [facility] Interpretation and review of laboratory results Normal [facility] Interpretation and review of laboratory results Abnormal [facility] Performed by: [facility], [address] [place] [address] CLIA ID: [id number] [facility] Nursing Noteon 04-19-2024 Nursing Note Patient off unit at this time for MRI Normal [facility] PROTEIN, URINE, 24 HOURon TOTAL PROTEIN, UR 24HR 136 mg/24 H Normal 42-[address] [facility] Comment on above: Performed By: #### L [id number] ####Nursing Scheduler: MELANI STEINBERG ([phone])[facility] ([place] [id number] [facility] Progress Noteon 04-19-2024 Progress Note Nutrition rescreen completed. Chart reviewed. Patient to be monitored and followed by the diet central supply technician supervisor. Dietitian available upon request. GRETEL Gilbert [facility] Progress Note Needs screened for MRI please [facility] [facility] Progress Note ---- Attestation signed by Bere Durant MD at 04/19/2024 10:59 AM M ATTENDING I have personally obtained a history and examined the patient on morning rounds. I agree with the assessment and plan as documented in the resident's note. The patient is a 28 y.o. 25w5d now HD#3, admitted for HTN, MADRID in context of complex medical history. See my extensive note from yesterday. 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 She is s/p magnesium and BMZ for concern for possible preeclampsia. Very challenging to differentiate but since starting Procardia, Bps have been much improved. Labs are normal and 24hr urine protein is normal at 136mg. Therefore, I suspect this is likley related to her CHTN and h/o migraines rather than preeclampsia. We still need her records from neuro/OB/FP to review and compare. In addition, we will obtain anatomy and growth ultrasound tomorrow. testing has been reassuring. Given continued intermittent MADRID and lightheadedness now off mag and with low suspicion for superimposed pre-eclampsia, will obtain neuro consult for any other recommendations given her neuro history. 35 minutes spent in total floor time today for review of records, patient interview and exam, documentation and coordination of care with care teams. Bere Durant MD ---- Maternal Medicine Service Resident Progress Note 04/19/2024 5:38 AM 04/17/2024 Hospital Day: 3 Pablo Alarcon, 28 y.o. 25w5d Patient has been seen and examined. Pt reports intermittent MADIRD. Denies any CP, SOB, RUQ pain. Diminished movement Negative vaginal bleeding Negative LOF Negative Contractions Vitals: 04/18/24 1551 04/18/24 1946 04/18/24 2333 04/19/24 0448 BP: 134/83 142/87 131/82 123/79 BP Location: Right arm Left arm Right arm Patient Position: Lying Lying Lying Pulse: 113 109 116 113 Resp: 16 18 18 16 Temp: 36.6 ?C (97.9 ?F) 36.6 ?C (97.9 ?F) 36.6 ?C (97.8 ?F) 37.1 ?C (98.7 ?F) TempSrc: Oral Oral Temporal Oral SpO2: 100% 98% 98% 96% FHT cat I with moderate variability, spontaneous accels, normal baseline, no decels. Physical Exam: Gen: NAD HEENT: Normocephalic, Atraumatic, EOMI, MMM Resp: CTABL, no WRR Card: RRR Abd: soft, gravid, NTND Ext: No LE edema, no calf tenderness or swelling Medications: Current Facility-Administer ed Medications Medication Dose Route Frequency Provider Last Rate Last Admin acetaminophen (Tylenol) tablet 650 mg 650 mg Oral q4h PRN Rosalia Schlieper, DO 650 mg at 04/18/242056 aspirin EC tablet 81 mg 81 mg Oral Daily Annemarie Gemma, DO 81 mg at 04/18/24 104 calcium carbonate (Tums) chewable tablet 500 mg 500 mg Oral q6h PRN Annemarie Gemma, DO 500 mg at 04/18/24 215 calcium gluconate 10 % injection 1 g 1 g IntraVENous PRN Rosalia Schlieper, DO diphenhydrAMINE (BENADryl) tablet/capsule 25 mg 25 mg Oral q6h PRN Aye Campbell, DO 25 mg at 04/18/24 0652 docusate sodium (Colace) capsule 100 mg 100 mg Oral BID PRN Annemarie Gemma, DO 100 mg at 04/18/24 2154 famotidine (Pepcid) 20 mg in sodium chloride (PF) 0.9 % 10 mL injection 20 mg IntraVENous q12h PRN Rosalia Schlieper, DO 20 mg at 04/18/24 0035 guaiFENesin (Mucinex) 12 hr tablet 600 mg 600 mg Oral BID PRN Rosalia Schlieper, DO 600 mg at 04/18/24 2334 influenza vaccine tiss-cult subunt (Flucelvax) STANDARD-DOSE injection 0.5 mL 0.5 mL IntraMUSCular Once Rosalia Stalineper, DO levETIRAcetam (Keppra) 100 MG/ML solution 1,000 mg 1,000 mg Oral Nightly Rosalia Schlieper, DO 1,000 mg at 04/18/24 2133 magnesium sulfate 20 GM/500ML infusion 2,000 mg/hr IntraVENous Continuous Rosalia Schlieper, DO Stopped at 04/18/24 1500 nicotine (Nicoderm, Step 2) 14 MG/24HR patch 1 patch 1 patch TransDERmal Daily Silvanastephany Villar, DO 1 patch at 04/18/24 0830 Followed by [START ON 05/30/2024] nicotine (Nicoderm, Step 3) 7 MG/24HR patch 1 patch 1 patch TransDERmal Daily Silvana Villar, DO NIFEdipine XL (Procardia XL) 24 hr tablet 30 mg 30 mg Oral Daily Annemarie Gemma, DO 30 mg at 04/18/24 1043 Non-Formulary Medication 1 Units Oral Daily Annemarie Gemma, DO ondansetron ODT (Zofran-ODT) disintegrating tablet 4 mg 4 mg Oral q8h PRN Rosalia Schphanieper, DO Or ondansetron (Zofran) injection 4 mg 4 mg IntraVENous q6h PRN Rosalia Schlieper, DO penicillin V (Veetid) tablet 500 mg 500 mg Oral BID Annemarie Gemma, DO polyethylene glycol (PEG) 3350 (Miralax) packet 17 g 17 g Oral Daily PRN Annemarie Daugherty, DO 17 g at 04/18/24 2155 vitamin tablet 1 tablet Oral Daily Rosalia Schphanieper, DO sodium chloride 0.9 % infusion 5-250 mL/hr IntraVENous PRN Rosalia Schli (more content not included)... Normal [facility] Laboratory - Chemistry and C hemistry - challengeon 04-18-2024 Glucose [Mass/Vol] 162 mg/dL High 70 - 100 mg/dL [facility] Glucose [Mass/Vol] 157 mg/dL High 70 - 100 mg/dL [facility] N. gonorrhoeae DNA GOLDEN+probe Ql (Cervical mucus)on 04-18-2024 C. trachomatis DNA GOLDEN+probe Ql (Unsp spec) Not detected Not Detected [facility] Interpretation and review of laboratory results Normal [facility] N gonorrhoeae, DNA Probe Not detected Not Detected [facility] Methodology: real-time PCR This test is intended for medical purposes only and is not intended for the evaluation of suspected sexual abuse or for other forensic purposes. In certain contexts, culture may be required to meet applicable laws and regulations for diagnosis of C. trachomatis and N. gonorrhoeae infections. Per 2014 CDC recommmendations, this test does not include confirmation of positive results by an alternative nucleic acid target. A negative result does not exclude the possibility of infection. A result of invalid indicates that a new specimen should be collected if clinically indicated. [facility] No Panel Informationon 04-18 Interpretation and review of laboratory results Abnormal [facility] Performed by: [facility], [address] [place] [id number] CLIA ID: [id number] [facility] Interpretation and review of laboratory results Abnormal [facility] Performed by: [facility], [address] [place] [id number] CLIA ID: [id number] [facility] Nursing Noteon 04-18-2024 Nursing Note Patient's 24 hour urine found to be sitting on patient's counter and not on ice. Dr. Campbell aware and restarted 24 hour urine this morning at 0730. Normal [facility] Progress Noteon 04-18-2024 Progress Note Notified by RN that previous RN had 24 hour urine sample sitting on counter. Should be placed on ice for accurate collection. Restarting 24 hours @ 0730 this AM. Aye Campbell, 04/18/2024 7:37 AM [facility] Progress Note ---- Attestation signed by Bere Durant MD at 04/18/2024 2:16 PM MFM ATTENDING I have personally obtained a history and examined the patient with Dr. Daugherty on rounds. I agree with the assessment and plan as documented in the resident's note. The patient is a 28 y.o. 25w4d who was admitted overnight from [facility]. The patient presented there with MADRID and severe range BP. She was started on magnesium there and given labetalol 20mg IV x 1 with resolution of severe range. She was also given BMZ and transferred to us. She has gotten her care in [place] and no records are currently available. Patient's medical history is complex. She has a history of CHTN and stopped an unknown BP medication at the advice of her PCP when she found out she was . She was not placed on bASA. She reports her Bps have been good until recently. She was feeling unwell with MADRID and lightheadedness which prompted her to go to hospital. 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 She reports this has been stable for 8 years. However as a result she does have a history of seizures and chronic migraines. She takes Keppra and has not had a seizure in many years. She reports more frequent migraines since getting . She reports she has had low risk genetic testing and understands the 50% risk for inheritance of NF in her child. She reports her 20 week anatomy was normal except for dilated kidneys. She states her first child does not have the disease. Her mother and multiple siblings have it. She has a left upper extremity deformity and occasionally is treated with steroids for chronic pain. She reports she sees neurology, Dr. Garg and last saw in early . She also reports she has a learning disability and has difficulty understanding things without the help of family members/grandmother . She also states the father of the baby has autism and Aspergers. This morning she appears well and is without complaints currently. Vitals: 04/18/24 0811 BP: 135/92 Pulse: 96 Resp: 18 Temp: 36.8 ?C (98.3 ?F) SpO2: 99% Alert and oriented, NAD RRR, no MRG CTA bilaterally Gravid nontender abdomen Deformity of left upper extremity. No edema noted; +hyperreflexia. Lab Results Component Value Date WBC 21.8 (H) 04/17/2024 HGB 11.3 (L) 04/17/2024 HCT 35.2 04/17/2024 MCV 83.6 04/17/2024 PLT 317 04/17/2024 Lab Results Component Value Date GLUCOSE 108 (H) 04/17/2024 CALCIUM 7.8 (L) 04/17/2024 NA 135 04/17/2024 K 3.9 04/17/2024 CO2 20 (L) 04/17/2024 CL 104 04/17/2024 BUN 7 04/17/2024 CREATININE 0.52 04/17/2024 Lab Results Component Value Date ALT 34 04/17/2024 AST 40 04/17/2024 ALKPHOS 190 (H) 04/17/2024 BILITOT 0.3 04/17/2024 P:C ratio 0.49 24hr urine in progress Current Monitoring Plan: CEFM NST: 120s, moderate variability with accels present; intermiittent variable decelerations. Overall reassuring for GA. Plan: Today I had a very long discussion with patient to obtain her history and apprise counselor as best as possible with limited information. We do not currently have access to her outside medical records or records. We discussed that her past medical history with CHTN, migranes, and seizures with NF make it very challenging to differentiate whether this is superimposed preeclampsia or symptoms related to her underlying medical conditions. For now we are treating her conservatively as though this is preeclampsia as that is the safest approach. It is unlikely that we will be able to obtain her records over the weekend. For now we are completing 24hrs of magnesium, Giving 2nd dose of BMZ and starting Procardia XL 30mg daily +bASA. We are collecting 24hr urine. We can compare all this to her records for better decision making. She understands that if this is preeclampsia, she will meet criteria for severe and would be admitted until delivery which would occur no later than 34 weeks. No acute NURSE MIDWIFE issues at this time, so will hold off on Neuro consult until we can get her records unless there is a clinical change prior to that time or if MADRID returns/worsens etc. Since there is a change for early delivery- we will obtain NICU consult. 75 minutes spent in total floor time today for review of records, patient interview and exam, documentation and coordination of care with care teams. Bere Durant MD ---- Maternal Medicine Service Resident Progress Note 04/18/2024 5:33 AM 04/17/2024 Hospital Day: 2 Pablo Alarcon, 28 y.o. 25w4d Patient has been seen and examined. States that she had a (more content not included)... Normal [facility] S. agalactiae DNA GOLDEN+probe Ql (Unsp spec)on 04-18-2024 Group B Strep Screen Not detected Not Detected [facility] Interpretation and review of laboratory results Normal [facility] Methodology: real-time PCR [facility] T. vaginalis DNA GOLDEN+probe Q l (Genital specimen)on 04-18-2024 Interpretation and review of laboratory results Normal [facility] Trichomonas vaginalis Not detected Not Detected [facility] Methodology: real-time PCR A negative result does not completely rule out infection with T. vaginalis. Results should be interpreted in conjunction with other clinical data. This test has not been validated for use with self-collected vaginal swab specimens from patients. This test is intended for medical purposes only and is not intended for the evaluation of suspected sexual abuse or for other forensic purposes. [facility] ABO and Rh group Confirm Nom (Bld)on 04-17-2024 ABO group Nom (Bld) A [facility] [employer] D Ag Ql (RBC) Positive [facility] AST(SGOT)on 04-17-2024 AST [Catalytic activity/Vol] 33 U/L Normal 15-37 [facility] Comment on above: Performed By: #### L 501.1400, L501.1105, L501.0900, L100.0500, L501.4100, L501.4405 ####[facility] [address] [place], [place], [address] Alanine Aminotransferas (SGP T)on 04-17-2024 ALT [Catalytic activity/Vol] 37 U/L Normal 13-56 [facility] Comment on above: Performed By: #### L 501.1400, L501.1105, L501.0900, L100.0500, L501.4100, L501.4405 ####[facility] [address] [place], [place], [id number] BLOOD TYPE AND SCREEN GELon 04-17-2024 ABO GROUPING A Normal [facility] Comment on above: Order Comment: HOLD. Specimen is valid for 3 days - nurse to verify valid specimen Performed By: #### L [id number] ####Nursing Scheduler: MELANI STEINBERG ([phone])[facility] BLOOD [facility] ([facility])[address] [place] [address] RH TYPE IN BLOOD Positive Normal [facility] Comment on above: Order Comment: HOLD. Specimen is valid for 3 days - nurse to verify valid specimen Performed By: #### L [id number] ####Nursing Scheduler: MELANI STEINBERG ([phone])[facility] BLOOD [facility] ([facility])[address] [place] [address] Blood type and Crossmatch pa le (Bld)on 04-17-2024 ABO group Nom (Bld) A [facility] Blood group antibody screen GEL Ql Negative [facility] [employer] D Ag Ql (RBC) Positive [facility] CBC (HEMOGRAM)on 04-17-2024 Erythrocyte distribution width (RBC) [Ratio] 13.4 % Normal 11.5-15.0 [facility] Comment on above: Performed By: #### L [id number] ####Nursing Scheduler: MELANI STEINBERG ([phone])[facility])[address] [place] [address] Hematocrit (Bld) [Volume fraction] 35.2 % Normal 35.0-47.0 [facility] Comment on above: Performed By: #### L [id number] ####Nursing Scheduler: MELANI STEINBERG ([phone])[facility])[address] [place] [address] Hemoglobin (Bld) [Mass/Vol] 11.3 g/dL Low 11.7-16.0 [facility] Comment on above: Performed By: #### L [id number] ####Nursing Scheduler: MELANI STEINBERG ([phone])[facility] ([facility])[address] [place] [address] MCH (RBC) [Entitic mass] 26.8 pg Normal 26.0-34.0 [facility] Comment on above: Performed By: #### L [id number] ####Nursing Scheduler: MELANI STEINBERG ([phone])[facility])[address] [place] [address] MCHC 32.1 % Normal 30.5-36.0 [facility] Comment on above: Performed By: #### L [id number] ####Nursing Scheduler: MELANI STEINBERG ([phone])[facility] ([facility])[address] [place] [address] MCV (RBC) [Entitic vol] 83.6 fL Normal 77.0-99.[address] [facility] Comment on above: Performed By: #### L [id number] ####Nursing Scheduler: MELANI STEINBERG ([phone])[facility])[address] [place] [address] Platelet mean volume (Bld) [Entitic vol] 11.0 fL Normal 9.0-12.7 [facility] Comment on above: Performed By: #### L [id number] ####Nursing Scheduler: MELANI STEINBERG ([phone])[facility])[address] [place] [address] Platelets (Bld) [#/Vol] 317 10*3/uL Normal 140-440 [facility] Comment on above: Performed By: #### L [id number] ####Nursing Scheduler: MELANI STEINBERG ([phone])[facility] ([facility])[address] [place] [address] RBC (Bld) [#/Vol] 4.21 10*6/uL Normal 3.80-5.20 [facility] Comment on above: Performed By: #### L [id number] ####Nursing Scheduler: MELANI STEINBERG ([phone])[facility] ([facility])[address] [place] [address] WBC (Bld) [#/Vol] 21.8 10*3/uL High 3.6-10.7 [facility] Comment on above: Performed By: #### L [id number] ####Nursing Scheduler: MELANI STEINBERG ([phone])[facility])[address] [place] [address] CBC panel Auto (Bld)on 04-17 Erythrocyte distribution width (RBC) [Ratio] 13.4 % 11.5 - 15.0 % [facility] Hematocrit (Bld) [Volume fraction] 35.2 % 35.0 - 47.0 % [facility] Hemoglobin (Bld) [Mass/Vol] 11.3 g/dL Low 11.7 - 16.0 g/dL [facility] Interpretation and review of laboratory results Abnormal [facility] MCH (RBC) [Entitic mass] 26.8 pg 26.0 - 34.0 pg [facility] MCHC (RBC) [Mass/Vol] 32.1 % 30.5 - 36.0 % [facility] MCV (RBC) [Entitic vol] 83.6 fL 77.0 - 99.0 fL [facility] Platelet mean volume (Bld) [Entitic vol] 11.0 fL 9.0 - 12.7 fL [facility] Platelets (Bld) [#/Vol] 317 10*3/uL 140 - 440 10*3/uL [facility] RBC (Bld) [#/Vol] 4.21 10*6/uL 3.80 - 5.2 0 10*6/uL [facility] WBC (Bld) [#/Vol] 21.8 10*3/uL High 3.6 - 10.7 10*3/uL [facility] CBC-Complete Blood Cnt No Di ffon 04-17-2024 Erythrocyte distribution width (RBC) [Ratio] 13.4 % Normal 11.6-14.6 [facility] Comment on above: Performed By: #### L 501.1400, L501.1105, L501.0900, L100.0500, L501.4100, L501.4405 ####[facility] [address] [place], [address] Hematocrit (Bld) [Volume fraction] 32.7 % Low 37-47 [facility] Comment on above: Performed By: #### L 501.1400, L501.1105, L501.0900, L100.0500, L501.4100, L501.4405 ####[facility] [address] [place], [address] Hemoglobin (Bld) [Mass/Vol] 10.5 g/dL Low 12.0-15.0 [facility] Comment on above: Performed By: #### L 501.1400, L501.1105, L501.0900, L100.0500, L501.4100, L501.4405 ####[facility] [address] [place], [address] MCH (RBC) [Entitic mass] 26.8 pg Low 27.0-32.0 [facility] Comment on above: Performed By: #### L 501.1400, L501.1105, L501.0900, L100.0500, L501.4100, L501.4405 ####[facility] [address] [place], [address] MCHC (RBC) [Mass/Vol] 32.1 g/dL Normal 32-36 [facility] Comment on above: Performed By: #### L 501.1400, L501.1105, L501.0900, L100.0500, L501.4100, L501.4405 ####[facility] [address] [place], [address] MCV (RBC) [Entitic vol] 83.4 fL Normal 81-99 [facility] Comment on above: Performed By: #### L 501.1400, L501.1105, L501.0900, L100.0500, L501.4100, L501.4405 ####[facility] [address] [place], [address] Platelet mean volume (Bld) [Entitic vol] 10.9 fL Normal 6.2-12.0 [facility] Comment on above: Performed By: #### L 501.1400, L501.1105, L501.0900, L100.0500, L501.4100, L501.4405 ####[facility] [address] [place], [address] Platelets (Bld) [#/Vol] 273 10*3/uL Normal 150-450 [facility] Comment on above: Performed By: #### L 501.1400, L501.1105, L501.0900, L100.0500, L501.4100, L501.4405 ####[facility] [address] [place], [address] RBC (Bld) [#/Vol] 3.92 10*6/uL Low 4.2-5.4 [facility] Comment on above: Performed By: #### L 501.1400, L501.1105, L501.0900, L100.0500, L501.4100, L501.4405 ####[facility] [address] [facility] [place], [address] RDW SD 41.1 fl Normal 35.1-43.9 [facility] Comment on above: Performed By: #### L 501.1400, L501.1105, L501.0900, L100.0500, L501.4100, L501.4405 ####[facility] [address] [facility] [place], [address] WBC (Bld) [#/Vol] 16.7 10*3/uL High 4.4-11.0 [facility] Comment on above: Performed By: #### L 501.1400, L501.1105, L501.0900, L100.0500, L501.4100, L501.4405 ####[facility] [address] [facility] [place], [address] CHLAMYDIA/GONORRHEAon 2023 CHLAMYDIA/GONORRHEA NEISSERIA GONORRHOEAE DNA PROBE Reference Not Detected Not Detected CHLAMYDIA TRACHOMATIS DNA PROBE Reference Not Detected Not Detected ORDER COMMENTS: Methodology: real-time PCR This test is intended for medical purposes only and is not intended for the evaluation of suspected sexual abuse or for other forensic purposes. In certain contexts, culture may be required to meet applicable laws and regulations for diagnosis of C. trachomatis and N. gonorrhoeae infections. Per 2014 CDC recommmendations, this test does not include confirmation of positive results by an alternative nucleic acid target. A negative result does not exclude the possibility of infection. A result of invalid indicates that a new specimen should be collected if clinically indicated. Normal [facility] Comment on above: Performed By: #### L [id number], [id number] ####Nursing Scheduler: MELANI STEINBERG ([id number])[facility] ([address] COMPREHENSIVE METABOLIC PANE [place] 04-17-2024 Albumin [Mass/Vol] 4.5 g/dL Normal 3.5-5.0 [facility] Comment on above: Performed By: #### L AB17 #### Nursing Scheduler: MELANI STEINBERG ([phone]) [facility] ([facility] [address] [place] [address] [place] ALP [Catalytic activity/Vol] 190 U/L High 38-126 [facility] Comment on above: Performed By: #### L AB17 #### Nursing Scheduler: MELANI STEINBERG ([id number]) [facility] ([facility] [address] [place] [address] [place] ALT [Catalytic activity/Vol] 34 U/L Normal 0-34 [facility] Comment on above: Performed By: #### L AB17 #### Nursing Scheduler: MELANI STEINBERG ([phone]) [facility] ([facility]) [address] [place] [address] Anion gap [Moles/Vol] 10 mmol/L Normal 3-13 [facility] Comment on above: Performed By: #### L AB17 #### Nursing Scheduler: MELANI STEINBERG ([phone]) [facility] ([facility]) [address] [place] [address] AST [Catalytic activity/Vol] 40 U/L Normal 15-46 [facility] Comment on above: Performed By: #### L AB17 #### Nursing Scheduler: MELANI STEINBERG ([id number]) [facility] ([facility]) [address] [place] [address] Bilirubin [Mass/Vol] 0.3 mg/dL Normal 0.2-1.3 [facility] Comment on above: Performed By: #### L AB17 #### Nursing Scheduler: MELANI STEINBERG ([phone]) [facility] ([facility]) [address] [place] [address] Calcium [Mass/Vol] 7.8 mg/dL Low 8.4-10.4 [facility] Comment on above: Performed By: #### L AB17 #### Nursing Scheduler: MELANI STEINBERG ([phone]) [facility] ([facility]) [address] [place] [address] [place] Chloride [Moles/Vol] 104 mmol/L Normal 98-107 [facility] Comment on above: Performed By: #### L AB17 #### Nursing Scheduler: MELANI STEINBERG ([phone]) [facility] ([facility]) [address] [place] [address] CO2 [Moles/Vol] 20 mmol/L Low 22-30 [facility] Comment on above: Performed By: #### L [id number] #### Nursing Scheduler: MELANI STEINBERG ([phone]) [facility]) [address] [place] [address] Creatinine [Mass/Vol] 0.52 mg/dL Normal 0.52-1.04 [facility] Comment on above: Performed By: #### L [id number] #### Nursing Scheduler: MELANI STEINBERG ([phone]) [facility]) [address] [place] [address] GLOMERULAR FILTRATION RATE ML/MIN/1.73 SQ M.PREDICTED >90.0 Normal >60.0 [facility] Comment on above: Result Comment: Calc ulation based on the Chronic Kidney Disease Epidemiology Collaboration (CKD-EPI) equation refit without adjustment for race Performed By: #### L [id number] #### Nursing Scheduler: MELANI STEINBERG ([phone]) [facility]) [address] [place] [address] Glucose [Mass/Vol] 108 mg/dL High 70-100 [facility] Comment on above: Performed By: #### L [id number] #### Nursing Scheduler: MELANI STEINBERG ([phone]) [facility]) [address] [place] [address] Potassium [Moles/Vol] 3.9 mmol/L Normal 3.5-5.1 [facility] Comment on above: Performed By: #### L [id number] #### Nursing Scheduler: MELANI STEINBERG ([phone]) [facility]) [address] [place] [address] Protein [Mass/Vol] 8.2 g/dL Normal 6.3-8.2 [facility] Comment on above: Performed By: #### L [id number] #### Nursing Scheduler: MELANI STEINBERG ([phone]) [facility]) [address] [place] [address] Sodium [Moles/Vol] 135 mmol/L Normal 135-145 [facility] Comment on above: Performed By: #### L [id number] #### Nursing Scheduler: MELANI STEINBERG ([phone]) [facility] [address] [place] [address] Urea nitrogen [Mass/Vol] 7 mg/dL Normal 7-17 [facility] Comment on above: Performed By: #### L [id number] #### Nursing Scheduler: MELANI STEINBERG ([phone]) [facility] ([facility]) [address] [place] [address] CREATININE, URINE, RANDOMon 04-17-2024 CREATININE, URINE 28.4 mg/dL Normal No Range [facility] Comment on above: Performed By: #### L [id number], [id number] ####Nursing Scheduler: MELANI STEINBERG ([phone])[facility] ([facility])[address] [place] [address] Comprehensive metabolic 1998 panelon 04-17-2024 Albumin [Mass/Vol] 4.5 g/dL 3.5 - 5.0 g/dL [facility] ALP [Catalytic activity/Vol] 190 U/L High 38 - 126 U/L [facility] ALT [Catalytic activity/Vol] 34 U/L 0 - 34 U/L [facility] Anion gap [Moles/Vol] 10 mmol/L 3 - 13 mmol/L [facility] AST [Catalytic activity/Vol] 40 U/L 15 - 46 U/L [facility] Bilirubin [Mass/Vol] 0.3 mg/dL 0.2 - 1.3 mg/dL [facility] Calcium [Mass/Vol] 7.8 mg/dL Low 8.4 - 10. 4 mg/dL [facility] Chloride [Moles/Vol] 104 mmol/L 98 - 107 mmol/L [facility] CO2 [Moles/Vol] 20 mmol/L Low 22 - 30 mmol/L [facility] Creatinine [Mass/Vol] 0.52 mg/dL 0.52 - 1.04 mg/dL [facility] GFR/1.73 sq M.predicted (S/P/Bld) [Vol rate/Area] - PINF [facility] Comment on above: Calculation based on the Chronic Kidney Disease Epidemiology Collaboration (CKD-EPI) equation refit without adjustment for race Glucose [Mass/Vol] 108 mg/dL High 70 - 100 mg/dL [facility] Interpretation and review of laboratory results Abnormal [facility] Potassium [Moles/Vol] 3.9 mmol/L 3.5 - 5.1 mmol/L [facility] Protein [Mass/Vol] 8.2 g/dL 6.3 - 8.2 g/dL [facility] Sodium [Moles/Vol] 135 mmol/L 135 - 145 mmol/L [facility] Urea nitrogen [Mass/Vol] 7 mg/dL 7 - 17 mg/dL [facility] Creatinine (U) [Mass/Vol]on 04-17-2024 CREATININE, URINE 28.4 mg/dL No Range [facility] ealth GROUP B STREP SCREEN BY PCRo n 04-17-2024 GROUP B STREP SCREEN BY PCR GROUP B STREP SCREEN BY PCR Reference Not Detected Not Detected ORDER COMMENTS: Methodology: real-time PCR Normal [facility] Comment on above: Performed By: #### L [id number] #### Nursing Scheduler: MELANI STEINBERG ([phone]) [address] H AND P Exam - OB/GYNon 04-07 H&P 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 Tomás Dickey MD Status:DEP CLI Location: [facility] HPI - General HPI Narrative PABLO ALARCON, is a 28 F @ 25w3d who presents with severe range bps, headache, 2 beats clonus. she has been seeing dr spangler in [place], has a history of chronic hypertension but hasn't been on any medications . Patient denies any vaginal bleeding or loss of fluid admits good movement. She is planning on transferring care to the [facility] [place] next week but she has not establish care with them yet. Maternal Data Information JOE Calculator Estimated Delivery Date Method Current WG Current Estimate 07/28/24 Manual 25w 6d PFSH PFSH Medical History (Updated 04/20/24 @ 07:[address] 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 Xochitl Lee MD) History of tonsillectomy History of surgery on upper extremity Social History Smoking Status: Current every day smoker tobacco type: e-cigarettes NST FHR Rate Baby A Baseline: 140 Variability:: Moderate Accelerations:: 10 x 10 Decelerations:: None NST Reactive:: Yes FHR Category:: Category I Uterine Activity:: no regular Vital Signs Vital Signs Vital Signs: 04/17/24 12:59 04/17/24 12:59 04/17/24 12:59 Temperature Temperature Source Pulse Rate 131 H Respiratory Rate Blood Pressure 139/100 H BP Systolic 139 BP Diastolic 100 Pulse Ox 99 04/17/24 12:59 04/17/24 12:59 04/17/24 12:59 Temperature 98.3 F Temperature Source Temporal Pulse Rate Respiratory Rate 16 Blood Pressure BP Systolic BP Diastolic Pulse Ox 04/17/24 13:03 04/17/24 13:03 04/17/24 13:04 Temperature Temperature Source Pulse Rate 125 H 125 H Respiratory Rate Blood Pressure 153/104 H BP Systolic 153 BP Diastolic 104 Pulse Ox 04/17/24 13:04 04/17/24 13:09 04/17/24 13:09 Temperature Temperature Source Pulse Rate 112 H Respiratory Rate Blood Pressure BP Systolic BP Diastolic Pulse Ox 99 100 04/17/24 13:14 04/17/24 13:14 04/17/24 13:14 Temperature Temperature Source Pulse Rate 118 H Respiratory Rate Blood Pressure 162/110 H BP Systolic 162 BP Diastolic 110 Pulse Ox 100 04/17/24 13:19 04/17/24 13:19 04/17/24 13:24 Temperature Temperature Source Pulse Rate 110 H 112 H Respiratory Rate Blood Pressure BP Systolic BP Diastolic Pulse Ox 100 04/17/24 13:24 04/17/24 13:29 04/17/24 13:29 Temperature Temperature Source Pulse Rate 102 H Respiratory Rate Blood Pressure BP Systolic BP Diastolic Pulse Ox 100 100 04/17/24 13:34 04/17/24 13:34 04/17/24 13:36 Temperature Temperature Source Pulse Rate 113 H Respiratory Rate Blood Pressure 185/110 H BP Systolic 185 BP Diastolic 110 Pulse Ox 100 04/17/24 13:36 04/17/24 13:37 04/17/24 13:37 Temperature Temperature Source Pulse Rate 100 95 Respiratory Rate Blood Pressure BP Systolic BP Diastolic Pulse Ox 89 04/17/24 13:39 04/17/24 13:39 04/17/24 13:44 Temperature Temperature Source Pulse Rate 105 H 97 Respiratory Rate Blood Pressure BP Systolic BP Diastolic Pulse Ox 95 04/17/24 13:44 04/17/24 13:49 04/17/24 13:49 Temperature Temperature Source Pulse Rate 107 H Respiratory Rate Blood Pressure BP Systolic BP Diastolic Pulse Ox 99 99 04/17/24 13:52 04/17/24 13:52 04/17/24 13:54 Temperature Temperature Source Pulse Rate 96 111 H Respiratory Rate Blood Pressure 166/113 H BP Systolic 166 BP Diastolic 113 Pulse Ox 04/17/24 13:54 04/17/24 14:06 04/17/24 14:06 Temperature Temperature Source Pulse Rate 126 H Respiratory Rate Blo (more content not included)... Normal [facility] IDNon 04-17-2024 IDN The patient is Moderately Stable - Low risk of patient condition declining or worsening The patient's goals for the shift include eat, get some rest The clinical goals for the shift include BP WNL Normal [facility] Laboratory - Urinalysison Protein (U) [Mass/Vol] 14 mg/dL High 0 - 12 mg/dL [facility] No Panel Informationon 04-17 Interpretation and review of laboratory results Abnormal [facility] PROTEIN, URINE, RANDOMon Protein (U) [Mass/Vol] 14 mg/dL High 0-12 [facility] Comment on above: Performed By: #### L [id number], [id number] ####Nursing Scheduler: MELANI STEINBERG ([phone])[facility] ([facility])[address] [place] [address] Protein+Creatinine Ratio,Uri neon 04-17-2024 PROT:CRE RATIO 157 mg/g CRE Normal 0-200 [facility] Comment on above: Performed By: #### L 501.1400, L501.1105, L501.0900, L100.0500, L501.4100, L501.4405 ####[facility] [address] [place], [address] Protein (U) [Mass/Vol] 32.8 mg/dL High <11.9 [facility] Comment on above: Performed By: #### L 501.1400, L501.1105, L501.0900, L100.0500, L501.4100, L501.4405 ####[facility] [address] [place], [address] UR CREAT 209.00 mg/dL Normal NO RANGE EST. [facility] Comment on above: Performed By: #### L 501.1400, L501.1105, L501.0900, L100.0500, L501.4100, L501.4405 ####[facility] [address] [place], [address] Serum Creatinine AND GFRon 1 Creatinine [Mass/Vol] 0.69 mg/dL Normal 0.55-1.02 [facility] Comment on above: Result Comment: The validity of the calculated GFR GFRAA in patients over 70 years has not been determined. Clinical correlation is essential. Performed By: #### L 501.1400, L501.1105, L501.0900, L100.0500, L501.4100, L501.4405 ####[facility] [address] [place], [place], [phone] EST GFR - AA 130 mL/min Normal >60 [facility] Comment on above: Result Comment: Afri can Irish GFR Calc Performed By: #### L 501.1400, L501.1105, L501.0900, L100.0500, L501.4100, L501.4405 ####[facility] [address] [place], [place], [phone]) GFR/1.73 sq M.predicted among non-blacks MDRD (S/P/Bld) [Vol rate/Area] 107 mL/min/{1.73_m2} Normal >60 [facility] Comment on above: Result Comment: Non- GFR Calc Performed By: #### L 501.1400, L501.1105, L501.0900, L100.0500, L501.4100, L501.4405 ####[facility] [address] [facility] [place], [place], [id number] TRICHOMONAS VAGINALIS PCRon 04-17-2024 TRICHOMONAS VAGINALIS PCR TRICHOMONAS VAGINALIS PCR Reference Not Detected Not Detected ORDER COMMENTS: Methodology: real-time PCR A negative result does not completely rule out infection with T. vaginalis. Results should be interpreted in conjunction with other clinical data. This test has not been validated for use with self-collected vaginal swab specimens from patients. This test is intended for medical purposes only and is not intended for the evaluation of suspected sexual abuse or for other forensic purposes. Normal [facility] Comment on above: Performed By: #### L [id number], [id number] ####Nursing Scheduler: MELANI STEINBERG ([phone])[facility] ([address] URINE CULTUREon 04-17-2024 Bacteria identified Cx Nom (U) URINE CULTURE Reference Normal urogenital chepe present [ S = SUSCEPTIBLE R = RESISTANT I = INTERMEDIATE S-DD = Susceptible-dose dependent NS = Non-susceptible NO = No Interpretation ] Normal [facility] Comment on above: Performed By: #### L [id number] ####Nursing Scheduler: MELANI STEINBERG ([phone])[facility] ([facility])[address] [place] [address] Uric Acidon 04-17-2024 URIC 4.6 mg/dL Normal 2.6-6.0 [facility] Comment on above: Result Comment: The drugs N-Acetylcysteine and Metamizole may falsely depress this assay. Performed By: #### L 501.1400, L501.1105, L501.0900, L100.0500, L501.4100, L501.4405 ####[facility] [address] [place], [place], [id number] C. trachomatis+N. gonorrhoea e DNA GOLDEN+probe Ql (Unsp spec)on 01-29-2024 C. trachomatis rRNA GOLDEN+probe Ql (Unsp spec) Negative Negative for Chlamydia trachomatis by amplificaton [facility] N. gonorrhoeae rRNA GOLDEN+probe Ql (Unsp spec) Negative Negative for Neisseria gonorrhoeae by amplification [facility] CBC panel Auto (Bld)Ordered By: Negar Youssef on 01-29-2024 Hematocrit (Bld) [Volume fraction] 41.0 % 36.0 - 46.0 % [facility] Hemoglobin (Bld) [Mass/Vol] 12.9 g/dL 11.5 - 15.5 g/dL [facility] Platelets (Bld) [#/Vol] 216 10*3/uL k/uL [facility] HEPATITIS B SURFACE ANTIGENo n 01-29-2024 HBV surface Ag Ql (S) Non-Reactive [facility] HIV 1+2 Ab IA Qlon HIV 1+2 Ab+HIV1 p24 Ag IA Ql Non-Reactive [facility] No Panel InformationOrdered By: Negar Youssef on 01-29-2024 [facility] RPR SCREENon 01-29-2024 Reagin Ab RPR Ql (S) Non-Reactive Nonreactive [facility] RUBELLA IGG ANTIBODYon 01-28 Rubella Antibody, IgG 8 [facility] Comment on above: Equivocal TSH (EXTERNAL)on 01-29-2024 TSH Qn 1.770 m[IU]/L [facility] TYPE + SCREEN (EXTERNAL LAB) on 01-29-2024 ABO/RH(D) (EXTERNAL) Positive [facility] VARICELLA ZOSTER IGGon 01-28 VZV IgG Qn (S) Negative [facility] CVFLURVon 01-28-2024 FLU A PCR Negative Normal Negative [facility] ([place]) Comment on above: Performed By: #### G FR, CMP, CBC, ADIFF, LIPID, VIDH, ANEU #### [place] [address] [place] [address] FLU B PCR Negative Normal Negative [facility] ([place]) Comment on above: Performed By: #### G FR, CMP, CBC, ADIFF, LIPID, VIDH, ANEU #### [place] [address] [place] [address] RSV PCR Negative Normal Negative [facility] ([place]) Comment on above: Performed By: #### G FR, CMP, CBC, ADIFF, LIPID, VIDH, ANEU #### [place] [address] SARS-CoV-2 (COVID-19) RNA GOLDEN+probe Ql (Unsp spec) Negative Normal Negative [facility] ([place]) Comment on above: Result Comment: Resu lts from the Xpert Xpress CoV-2/Flu/RSV plus test should be correlated with the clinical history, epidemiological data, and other data available to the clinical evaluating the patient. Performance of the Xpert Xpress CoV-2/Flu/RSV plus test has only been established in nasopharyngeal swab specimen. Erroneous test results might occur from improper specimen collection, failure to follow the recommended sample collection, handling and storage procedures, technical error, or sample mix-up. False negative results may occur if a virus is present at a level below the analytical limit of detection. Viral nucleic acid may persist in vivo, independent of virus viability. Detection of analyte target(s) does not imply that the corresponding virus(es) are infectious or are the causative agents for clinical symptoms. Recent patient exposure to FluMist or other live attenuated influenza vaccines may cause inaccurate positive results. Performed By: #### G FR, CMP, CBC, ADIFF, LIPID, VIDH, ANEU #### [address] [address] .Auto Diffon 12-21-2023 Basophil, Absolute 0.1 10 3/mcL Normal 0.0-0.2 [facility] ([place]) Comment on above: Performed By: #### G FR, CBC, HCGQ, BMP, MDW, ADIFF, ANEU #### [address] [address] Basophils/100 WBC (Bld) 0.5 % Normal 0.0-2.5 A [facility] ([place]) Comment on above: Performed By: #### G FR, CBC, HCGQ, BMP, MDW, ADIFF, ANEU #### [address] [address] Eosinophil, Absolute 0.1 10 3/mcL Normal 0.0-0.4 Count includes the [facility] ([place]) Comment on above: Performed By: #### G FR, CBC, HCGQ, BMP, MDW, ADIFF, ANEU #### [address] [address] Eosinophils/100 WBC (Bld) 0.6 % Normal 0.0-7.0 [facility] ([place]) Comment on above: Performed By: #### G FR, CBC, HCGQ, BMP, MDW, ADIFF, ANEU #### [address] [address] Lymphocyte, Absolute 2.3 10 3/mcL Normal 0.8-3.9 Count includes the [facility] ([place]) Comment on above: Performed By: #### G FR, CBC, HCGQ, BMP, MDW, ADIFF, ANEU #### [address] [address] Lymphocytes/100 WBC (Bld) 17.0 % Normal 10.0-50.0 [facility] ([place]) Comment on above: Performed By: #### G FR, CBC, HCGQ, BMP, MDW, ADIFF, ANEU #### [address] [address] Monocyte, Absolute 1.3 10 3/mcL High 0.2-1.0 [facility] ([place]) Comment on above: Performed By: #### G FR, CBC, HCGQ, BMP, MDW, ADIFF, ANEU #### [address] [address] Monocytes/100 WBC (Bld) 9.4 % Normal 1.7-13.0 A [facility] ([place]) Comment on above: Performed By: #### G FR, CBC, HCGQ, BMP, MDW, ADIFF, ANEU #### [address] [address] Neutrophils/100 WBC (Bld) 72.5 % Normal 37.0-80.0 [facility] ([place]) Comment on above: Performed By: #### G FR, CBC, HCGQ, BMP, MDW, ADIFF, ANEU #### [address] [address] .GFRon 12-21-2023 GFR 142 ml/min/1.73sqm Normal [facility] ([place]) Comment on above: Result Comment: GFR Population mean for , Non- Americans Ages 20-29 = 116 mL/min/1.73 sq.m. Ages 30-39 = 107 mL/min/1.73 sq.m. Ages 40-49 = 99 mL/min/1.73 sq.m. Ages 50-59 = 93 mL/min/1.73 sq.m. Ages 60-69 = 85 mL/min/1.73 sq.m. Ages 70+ = 75 mL/min/1.73 sq.m. Chronic Kidney Disease: Less than 60 mL/min/1.73 square meters End Stage Renal Disease: Less than 15 mL/min/1.73 square meters Performed By: #### G FR, CMP, CBC, ADIFF, LIPID, VIDH, ANEU #### [address] [address] GFR Non- 117 ml/min/1.73sqm Normal [facility] ([place]) Comment on above: Result Comment: GFR Population mean for , Non- Americans Ages 20-29 = 116 mL/min/1.73 sq.m. Ages 30-39 = 107 mL/min/1.73 sq.m. Ages 40-49 = 99 mL/min/1.73 sq.m. Ages 50-59 = 93 mL/min/1.73 sq.m. Ages 60-69 = 85 mL/min/1.73 sq.m. Ages 70+ = 75 mL/min/1.73 sq.m. Chronic Kidney Disease: Less than 60 mL/min/1.73 square meters End Stage Renal Disease: Less than 15 mL/min/1.73 square meters Performed By: #### G FR, CMP, CBC, ADIFF, LIPID, VIDH, ANEU #### [address] [address] .MDWon 12-21-2023 Monocyte Distribution Width 16.27 Normal 0.00-20.00 [facility] ([place]) Comment on above: Result Comment: For ED adult patients suspected of sepsis, MDW<=20.0 does not rule out sepsis or risk of sepsis Performed By: #### G FR, CMP, CBC, ADIFF, LIPID, VIDH, ANEU #### [address] [address] .NEUABSon 12-21-2023 Neutrophil, Absolute 9.9 10 3/mcL High 2.9-6.2 Count includes the [facility] ([place]) Comment on above: Performed By: #### G FR, CMP, CBC, ADIFF, LIPID, VIDH, ANEU #### [address] [address] BMPon 12-21-2023 BUN/Creatinine Ratio 11 ratio Normal 7-27 [facility] ([place]) Comment on above: Performed By: #### G FR, CMP, CBC, ADIFF, LIPID, VIDH, ANEU #### [address] [address] Calcium [Mass/Vol] 8.7 mg/dL Normal 8.4-10.2 [facility] ([place]) Comment on above: Performed By: #### G FR, CMP, CBC, ADIFF, LIPID, VIDH, ANEU #### [address] [address] Chloride [Moles/Vol] 102 mmol/L Normal 98-107 [facility] ([place] Comment on above: Performed By: #### G FR, CMP, CBC, ADIFF, LIPID, VIDH, ANEU #### [address] [address] CO2 [Moles/Vol] 24 mmol/L Normal 22-29 [facility] ([place]) Comment on above: Performed By: #### G FR, CMP, CBC, ADIFF, LIPID, VIDH, ANEU #### [address] [address] Creatinine [Mass/Vol] 0.61 mg/dL Normal 0.55-1.02 [facility] ([place]) Comment on above: Performed By: #### G FR, CMP, CBC, ADIFF, LIPID, VIDH, ANEU #### [address] [address] Electrolyte Balance 10.0 mEq/L Normal 4.0-15.0 [facility] ([place]) Comment on above: Performed By: #### G FR, CMP, CBC, ADIFF, LIPID, VIDH, ANEU #### [address] [address] Glucose [Mass/Vol] 87 mg/dL Normal 70-105 [facility] ([place]) Comment on above: Performed By: #### G FR, CMP, CBC, ADIFF, LIPID, VIDH, ANEU #### [address] [address] Potassium [Moles/Vol] 3.5 mmol/L Normal 3.5-5.1 [facility] ([place]) Comment on above: Performed By: #### G FR, CMP, CBC, ADIFF, LIPID, VIDH, ANEU #### [address] [address] Sodium [Moles/Vol] 136 mmol/L Normal 136-145 [facility] ([place] Comment on above: Performed By: #### G FR, CMP, CBC, ADIFF, LIPID, VIDH, ANEU #### [place] [address] Urea nitrogen [Mass/Vol] 7 mg/dL Normal 7-18 [facility] ([place]) Comment on above: Performed By: #### G FR, CMP, CBC, ADIFF, LIPID, VIDH, ANEU #### [place] [address] CBCon 12-21-2023 Erythrocyte distribution width (RBC) [Ratio] 17.9 % High 11.5-14.5 [facility] ([place]) Comment on above: Performed By: #### G FR, CBC, HCGQ, BMP, MDW, ADIFF, ANEU #### [place] [address] Hematocrit (Bld) [Volume fraction] 38.5 % Normal 37.0-47.0 [facility] ([place]) Comment on above: Performed By: #### G FR, CBC, HCGQ, BMP, MDW, ADIFF, ANEU #### [place] [address] Hgb 12.7 G/dL Normal 12.0-16.0 [facility] ([place]) Comment on above: Performed By: #### G FR, CBC, HCGQ, BMP, MDW, ADIFF, ANEU #### [place] [address] MCH (RBC) [Entitic mass] 26.5 pg Low 27.0-31.2 [facility] ([place] Comment on above: Performed By: #### G FR, CBC, HCGQ, BMP, MDW, ADIFF, ANEU #### [place] [address] MCHC 33.0 G/dL Normal 33.0-37.0 [facility] ([place] Comment on above: Performed By: #### G FR, CBC, HCGQ, BMP, MDW, ADIFF, ANEU #### [address] [address] MCV (RBC) [Entitic vol] 80.2 fL Normal 80.0-94.0 A [facility] ([place]) Comment on above: Performed By: #### G FR, CBC, HCGQ, BMP, MDW, ADIFF, ANEU #### [address] [address] Platelet 265 10 3/mcL Normal 130-400 [facility] ([place]) Comment on above: Performed By: #### G FR, CBC, HCGQ, BMP, MDW, ADIFF, ANEU #### [address] [address] Platelet mean volume (Bld) [Entitic vol] 8.4 fL Normal 7.4-10.4 [facility] ([place]) Comment on above: Performed By: #### G FR, CBC, HCGQ, BMP, MDW, ADIFF, ANEU #### [address] [address] RBC 4.79 10 6/mcL Normal 4.20-5.40 [facility] ([place] Comment on above: Performed By: #### G FR, CBC, HCGQ, BMP, MDW, ADIFF, ANEU #### [address] [address] WBC 13.7 10 3/mcL High 4.6-10.8 [facility] ([place]) Comment on above: Performed By: #### G FR, CBC, HCGQ, BMP, MDW, ADIFF, ANEU #### [address] [address] HCGQon 12-21-2023 hCG, quantitative 073170.9 mIU/mL Normal Count includes the [facility] ([place]) Comment on above: Result Comment: HCG Levels with Gestation age: 0.2- 1 week. . . . . . . . . . . . . . . 5 - 50 mIU/mL 1-2 weeks . . . . . . . . . . . . . . . 50 - 500 mIU/mL 2-3 weeks . . . . . . . . . . . . . . . 100 - 5,000 mIU/ml 3-4 weeks . . . . . . . . . . . . . . . 500 - 10,000 mIU/mL 4-5 weeks . . . . . . . . . . . . . . . 1,000 - 5,000 mIU/mL 5-6 weeks . . . . . . . . . . . . . . . 10,000 - 100,000 mIU/mL 6-8 weeks . . . . . . . . . . . . . . . 15,000 - 200,000 mIU/mL 2-3 months . . . . . . . . . . . . . . . 10,000 - 100,000 mIU/mL Performed By: #### G FR, CMP, CBC, ADIFF, LIPID, VIDH, ANEU #### [place] [address] LABORATORYOrdered By: SYSTEM SYSTEM on 12-21-2023 Basophil, Absolute 0.1 103/mcL Normal 0.0 - 0.2 10^3/mcL AO Workflow SS Basophils/100 WBC (Bld) 0.5 % Normal 0.0 - 2.5 % AO Workflow SS Calcium [Mass/Vol] 8.7 mg/dL Normal 8.4 - 10. 2 mg/dL AO ADM SS Chloride [Moles/Vol] 102 mmol/L Normal 98 - 107 mmol/L AO ADM SS CO2 [Moles/Vol] 24 mmol/L Normal 22 - 29 mmol/L AO AD M SS Creatinine [Mass/Vol] 0.61 mg/dL Normal 0.55 - 1.02 mg/dL AO ADM SS Electrolyte Balance 10.0 mEq/L Normal 4.0 - 15 .0 mEq/L AO ADM SS Eosinophil, Absolute 0.1 103/mcL Normal 0.0 - 0 .4 10^3/mcL AO Workflow SS Eosinophils/100 WBC (Bld) 0.6 % Normal 0.0 - 7.0 % AO Workflow SS Erythrocyte distribution width (RBC) [Ratio] 17.9 % High 11.5 - 14.5 % AO Workflow SS GFR/1.73 sq M.predicted among blacks MDRD (S/P/Bld) [Vol rate/Area] 142 ml/min/1.73sqm Invalid Interpretation Code AO Chemistry S Comment on above: Interpretive Data: GFR Population mean for , Non- Americans Ages 20-29 = 116 mL/min/1.73 sq.m. Ages 30-39 = 107 mL/min/1.73 sq.m. Ages 40-49 = 99 mL/min/1.73 sq.m. Ages 50-59 = 93 mL/min/1.73 sq.m. Ages 60-69 = 85 mL/min/1.73 sq.m. Ages 70+ = 75 mL/min/1.73 sq.m. Chronic Kidney Disease: Less than 60 mL/min/1.73 square meters End Stage Renal Disease: Less than 15 mL/min/1.73 square meters GFR/1.73 sq M.predicted among non-blacks MDRD (S/P/Bld) [Vol rate/Area] 117 ml/min/1.73sqm Invalid Interpretation Code AO Chemistry S Comment on above: Interpretive Data: GFR Population mean for , Non- Americans Ages 20-29 = 116 mL/min/1.73 sq.m. Ages 30-39 = 107 mL/min/1.73 sq.m. Ages 40-49 = 99 mL/min/1.73 sq.m. Ages 50-59 = 93 mL/min/1.73 sq.m. Ages 60-69 = 85 mL/min/1.73 sq.m. Ages 70+ = 75 mL/min/1.73 sq.m. Chronic Kidney Disease: Less than 60 mL/min/1.73 square meters End Stage Renal Disease: Less than 15 mL/min/1.73 square meters Glucose [Mass/Vol] 87 mg/dL Normal 70 - 105 mg/dL AO ADM SS HCG Qn 042294.9 m[IU]/mL Invalid Interpretation Code AO ADM SS Comment on above: Interpretive Data: H CG Levels with Gestation age: 0.2- 1 week. . . . . . . . . . . . . . . 5 - 50 mIU/mL 1-2 weeks . . . . . . . . . . . . . . . 50 - 500 mIU/mL 2-3 weeks . . . . . . . . . . . . . . . 100 - 5,000 mIU/ml 3-4 weeks . . . . . . . . . . . . . . . 500 - 10,000 mIU/mL 4-5 weeks . . . . . . . . . . . . . . . 1,000 - 5,000 mIU/mL 5-6 weeks . . . . . . . . . . . . . . . 10,000 - 100,000 mIU/mL 6-8 weeks . . . . . . . . . . . . . . . 15,000 - 200,000 mIU/mL 2-3 months . . . . . . . . . . . . . . . 10,000 - 100,000 mIU/mL Hematocrit (Bld) [Volume fraction] 38.5 % Normal 37.0 - 47.0 % AO Workflow SS Hemoglobin (Bld) [Mass/Vol] 12.7 G/dL Normal 12.0 - 16.0 G/dL AO Workflow SS Lymphocyte, Absolute 2.3 103/mcL Normal 0.8 - 3 .9 10^3/mcL AO Workflow SS Lymphocytes/100 WBC (Bld) 17.0 % Normal 10.0 - 50.0 % AO Workflow SS MCH (RBC) [Entitic mass] 26.5 pg Low 27.0 - 31.2 pg AO Workflow SS MCHC 33.0 G/dL Normal 33.0 - 37.0 G/dL AO Workflow SS MCV (RBC) [Entitic vol] 80.2 fL Normal 80.0 - 94.0 fL AO Workflow SS Monocyte distribution width Auto (Bld) [Entitic vol] 16.27 1 Normal 0.00 - 20.00 AO Workflow SS Comment on above: Result Comment: For ED adult patients suspected of sepsis, MDW<=20.0 does not rule out sepsis or risk of sepsis Monocyte, Absolute 1.3 103/mcL High 0.2 - 1.0 10^3/mcL AO Workflow SS Monocytes/100 WBC (Bld) 9.4 % Normal 1.7 - 13.0 % AO Workflow SS Neutrophil, Absolute 9.9 103/mcL High 2.9 - 6 .2 10^3/mcL AO Workflow SS Neutrophils/100 WBC (Bld) 72.5 % Normal 37.0 - 80.0 % AO Workflow SS Platelet mean volume (Bld) [Entitic vol] 8.4 fL Normal 7.4 - 10.4 fL AO Workflow SS Platelets (Bld) [#/Vol] 265 103/mcL Normal 130 - 400 10^3/mcL AO Workflow SS Potassium [Moles/Vol] 3.5 mmol/L Normal 3.5 - 5.1 mmol/L AO ADM SS RBC (Bld) [#/Vol] 4.79 106/mcL Normal 4.20 - 5.4 0 10^6/mcL AO Workflow SS Sodium [Moles/Vol] 136 mmol/L Normal 136 - 145 mmol/L AO ADM SS Urea nitrogen [Mass/Vol] 7 mg/dL Normal 7 - 18 mg/dL AO ADM SS Urea nitrogen/Creatinine [Mass ratio] 11 ratio Normal 7 - 27 ratio AO ADM SS WBC (Bld) [#/Vol] 13.7 103/mcL High 4.6 - 10.8 10^3/mcL AO Workflow SS FEon 11-26-2023 Iron [Mass/Vol] 22 ug/dL Low 50-170 [facility] ([place]) Comment on above: Performed By: #### G FR, CMP, CBC, ADIFF, LIPID, VIDH, ANEU #### [address] [address] Jama 11-26-2023 Ferritin [Mass/Vol] 13.0 ng/mL Normal 8.0-252.0 [facility] ([place]) Comment on above: Performed By: #### G FR, CMP, CBC, ADIFF, LIPID, VIDH, ANEU #### [address] [address] FT4on 11-26-2023 Free T4 [Mass/Vol] 1.08 ng/dL Normal 0.76-1.46 [facility] ([place]) Comment on above: Performed By: #### G FR, CMP, CBC, ADIFF, LIPID, VIDH, ANEU #### [address] [address] IBCon 11-26-2023 TIBC 383 mcg/dL Normal 250-450 [facility] ([place]) Comment on above: Performed By: #### G FR, CMP, CBC, ADIFF, LIPID, VIDH, ANEU #### [address] [address] LABORATORYOrdered By: SYSTEM SYSTEM on 11-26-2023 Ferritin [Mass/Vol] 13.0 ng/mL Normal 8.0 - 25 2.0 ng/mL AO ADM SS Free T4 [Mass/Vol] 1.08 ng/dL Normal 0.76 - 1. 46 ng/dL AO ADM SS Iron [Mass/Vol] 22 ug/dL Low 50 - 170 mcg/dL AO A DM SS Iron binding capacity [Mass/Vol] 383 mcg/dL Normal 250 - 450 mcg/dL AO ADM SS TSH Qn 1.67 m[IU]/L Normal 0.36 - 3.74 mcIU/mL AO ADM SS TSHon 11-26-2023 TSH Qn 1.67 m[IU]/L Normal 0.36-3.74 [facility] ([place]) Comment on above: Performed By: #### G FR, CMP, CBC, ADIFF, LIPID, VIDH, ANEU #### [address] [address] No Panel Informationon 07-24 Culture Urine 10,000 - 50,000 cfu/ml Mixed growth consistent with normal urogenital chepe. [facility] Work Phone: MRI ORBIT W/ + W/O CONTRASTo n 06-28-2023 MRI ORBIT W/ + W/O CONTRAST ADDENDUM ADDENDUM: No orbital abnormality is seen. Interpreted by: Kei Hernandez MD Preliminary Report By: Kei Hernandez MD Electronically signed By Kei Hernandez MD Dictated Date: 06/28/2023 12:53:55 PM Prelim Date: 06/28/2023 12:54:56 PM Sign Date: 06/28/2023 12:54:56 PM Ordering Provider: KVNG MCPHERSON ORIGINAL HISTORY: Type 1 neurofibromatosis COMPARISON: 25 February 2023 TECHNIQUE: 1. Axial FLAIR images. 2. Coronal T2-weighted images. 3. Axial diffusion-weighted images with ADC map. 4. Sagittal and coronal T1-weighted images of the sella prior to and following uncomplicated administration of intravenous contrast. 5. Axial T1-weighted images of the brain following uncomplicated administration of intravenous gadolinium contrast. FINDINGS: There is a discrete 5 cm area of loss of the superficial subcutaneous fat centered over the left parietal lobe. No discrete abnormality is the underlying brain is seen. There is a suboptimally visualized discrete fluid defect in the mid clivus. There is a 1 cm superficial soft tissue lesion in the left occipital region. The ventricles and sulci are normal in size and configuration. There are no abnormal intra or extra-axial fluid collections. Melissa-white matter differentiation is maintained. There is no abnormal restriction of diffusion. There is no abnormal enhancement of the brain or its coverings. The pituitary gland is mildly asymmetric, mildly shifted to the right, with mild shift of the infundibulum is well. There is no invasion of either cavernous sinus. There is no suprasellar extension and there is no appreciable sellar remodeling. IMPRESSION: No significant interval change. Left parietal scalp thinning, right subcutaneous tissue, and small cystic focus in the clivus. Mild asymmetry of the pituitary gland Interpreted by: Kei Hernandez MD Preliminary Report By: Kei Hernandez MD Electronically signed By Kei Hernandez MD Dictated Date: 06/25/2023 11:18:45 AM Prelim Date: 06/25/2023 11:30:09 AM Sign Date: 06/25/2023 11:30:09 AM Ordering Provider: KVNG MCPHERSON Normal [facility] ([place]) HCGQon 06-24-2023 hCG, quantitative <1.0 Normal [facility] ([place]) Comment on above: Result Comment: HCG Levels with Gestation age: 0.2- 1 week. . . . . . . . . . . . . . . 5 - 50 mIU/mL 1-2 weeks . . . . . . . . . . . . . . . 50 - 500 mIU/mL 2-3 weeks . . . . . . . . . . . . . . . 100 - 5,000 mIU/ml 3-4 weeks . . . . . . . . . . . . . . . 500 - 10,000 mIU/mL 4-5 weeks . . . . . . . . . . . . . . . 1,000 - 5,000 mIU/mL 5-6 weeks . . . . . . . . . . . . . . . 10,000 - 100,000 mIU/mL 6-8 weeks . . . . . . . . . . . . . . . 15,000 - 200,000 mIU/mL 2-3 months . . . . . . . . . . . . . . . 10,000 - 100,000 mIU/mL Performed By: #### G FR, CMP, CBC, ADIFF, LIPID, VIDH, ANEU #### [id number] [place], [place] [address] LABORATORYOrdered By: SYSTEM SYSTEM on 06-24-2023 HCG Qn mIU/mL Invalid Interpretation Code AO ADM SS Comment on above: Interpretive Data: H CG Levels with Gestation age: 0.2- 1 week. . . . . . . . . . . . . . . 5 - 50 mIU/mL 1-2 weeks . . . . . . . . . . . . . . . 50 - 500 mIU/mL 2-3 weeks . . . . . . . . . . . . . . . 100 - 5,000 mIU/ml 3-4 weeks . . . . . . . . . . . . . . . 500 - 10,000 mIU/mL 4-5 weeks . . . . . . . . . . . . . . . 1,000 - 5,000 mIU/mL 5-6 weeks . . . . . . . . . . . . . . . 10,000 - 100,000 mIU/mL 6-8 weeks . . . . . . . . . . . . . . . 15,000 - 200,000 mIU/mL 2-3 months . . . . . . . . . . . . . . . 10,000 - 100,000 mIU/mL Influenza virus A and B and SARS-CoV-2 (COVID-19) Ag panel - Upper respiratory specimOrdered By: Brenda Saunders on 04-29-2023 SARS-CoV-2 & FLU Antigen (Rapid) SARS-CoV-2 (COVID 19) [facility] Laboratory - Chemistry and C hemistry - challengeOrdered By: Brenda Saunders on 04-29-2023 HCG ( test) Ql (U) Negative [facility] Comment on above: Very dilute urine sp ecimens, as indicated by a low specificgravity, may not contain promotional representative levels of hCG. If is still suspected, a first morning urinespecimen should be collected 48 hours later and tested. .Auto Diffon 04-17-2023 Basophil, Absolute 0.1 10 3/mcL Normal 0.0-0.2 [facility] ([place]) Comment on above: Performed By: #### G FR, CMP, CBC, ADIFF, LIPID, VIDH, ANEU #### [address] [address] Basophils/100 WBC (Bld) 0.8 % Normal 0.0-2.5 A [facility] ([place]) Comment on above: Performed By: #### G FR, CMP, CBC, ADIFF, LIPID, VIDH, ANEU #### [address] [address] Eosinophil, Absolute 0.2 10 3/mcL Normal 0.0-0.4 Count includes the [facility] ([place]) Comment on above: Performed By: #### G FR, CMP, CBC, ADIFF, LIPID, VIDH, ANEU #### [address] [address] Eosinophils/100 WBC (Bld) 1.6 % Normal 0.0-7.0 [facility] ([place]) Comment on above: Performed By: #### G FR, CMP, CBC, ADIFF, LIPID, VIDH, ANEU #### [address] [address] Lymphocyte, Absolute 2.4 10 3/mcL Normal 0.8-3.9 Count includes the [facility] ([place]) Comment on above: Performed By: #### G FR, CMP, CBC, ADIFF, LIPID, VIDH, ANEU #### [address] [address] Lymphocytes/100 WBC (Bld) 21.8 % Normal 10.0-50.0 [facility] ([place]) Comment on above: Performed By: #### G FR, CMP, CBC, ADIFF, LIPID, VIDH, ANEU #### [address] [address] Monocyte, Absolute 0.9 10 3/mcL Normal 0.2-1.0 [facility] ([place]) Comment on above: Performed By: #### G FR, CMP, CBC, ADIFF, LIPID, VIDH, ANEU #### [address] [address] Monocytes/100 WBC (Bld) 8.5 % Normal 1.7-13.0 A [facility] ([place]) Comment on above: Performed By: #### G FR, CMP, CBC, ADIFF, LIPID, VIDH, ANEU #### [address] [address] Neutrophils/100 WBC (Bld) 67.3 % Normal 37.0-80.0 [facility] ([place]) Comment on above: Performed By: #### G FR, CMP, CBC, ADIFF, LIPID, VIDH, ANEU #### [address] [address] .GFRon 04-17-2023 GFR 79 ml/min/1.73sqm Normal [facility] ([place]) Comment on above: Result Comment: GFR Population mean for , Non- Americans Ages 20-29 = 116 mL/min/1.73 sq.m. Ages 30-39 = 107 mL/min/1.73 sq.m. Ages 40-49 = 99 mL/min/1.73 sq.m. Ages 50-59 = 93 mL/min/1.73 sq.m. Ages 60-69 = 85 mL/min/1.73 sq.m. Ages 70+ = 75 mL/min/1.73 sq.m. Chronic Kidney Disease: Less than 60 mL/min/1.73 square meters End Stage Renal Disease: Less than 15 mL/min/1.73 square meters Performed By: #### G FR, CMP, CBC, ADIFF, LIPID, VIDH, ANEU #### [address] [address] GFR Non- 65 ml/min/1.73sqm Normal [facility] ([place]) Comment on above: Result Comment: GFR Population mean for , Non- Americans Ages 20-29 = 116 mL/min/1.73 sq.m. Ages 30-39 = 107 mL/min/1.73 sq.m. Ages 40-49 = 99 mL/min/1.73 sq.m. Ages 50-59 = 93 mL/min/1.73 sq.m. Ages 60-69 = 85 mL/min/1.73 sq.m. Ages 70+ = 75 mL/min/1.73 sq.m. Chronic Kidney Disease: Less than 60 mL/min/1.73 square meters End Stage Renal Disease: Less than 15 mL/min/1.73 square meters Performed By: #### G FR, CMP, CBC, ADIFF, LIPID, VIDH, ANEU #### [address] [address] .NEUABSon 04-17-2023 Neutrophil, Absolute 7.3 10 3/mcL High 2.9-6.2 Count includes the [facility] ([place]) Comment on above: Performed By: #### G FR, CMP, CBC, ADIFF, LIPID, VIDH, ANEU #### [place] [id number] CBCon 04-17-2023 Erythrocyte distribution width (RBC) [Ratio] 13.2 % Normal 11.5-14.5 [facility] ([place]) Comment on above: Performed By: #### G FR, CMP, CBC, ADIFF, LIPID, VIDH, ANEU #### [place] [phone] Hematocrit (Bld) [Volume fraction] 41.0 % Normal 37.0-47.0 [facility] ([place]) Comment on above: Performed By: #### G FR, CMP, CBC, ADIFF, LIPID, VIDH, ANEU #### [place] [phone] Hgb 13.9 G/dL Normal 12.0-16.0 [facility] ([place]) Comment on above: Performed By: #### G FR, CMP, CBC, ADIFF, LIPID, VIDH, ANEU #### [place] [phone] MCH (RBC) [Entitic mass] 29.3 pg Normal 27.0-31.2 [facility] ([place]) Comment on above: Performed By: #### G FR, CMP, CBC, ADIFF, LIPID, VIDH, ANEU #### [address] [address] MCHC 33.9 G/dL Normal 33.0-37.0 [facility] ([place]) Comment on above: Performed By: #### G FR, CMP, CBC, ADIFF, LIPID, VIDH, ANEU #### [address] [address] MCV (RBC) [Entitic vol] 86.6 fL Normal 80.0-94.0 A [facility] ([place]) Comment on above: Performed By: #### G FR, CMP, CBC, ADIFF, LIPID, VIDH, ANEU #### [address] [address] Platelet 235 10 3/mcL Normal 130-400 [facility] ([place]) Comment on above: Performed By: #### G FR, CMP, CBC, ADIFF, LIPID, VIDH, ANEU #### [address] [address] Platelet mean volume (Bld) [Entitic vol] 9.0 fL Normal 7.4-10.4 [facility] ([place]) Comment on above: Performed By: #### G FR, CMP, CBC, ADIFF, LIPID, VIDH, ANEU #### [address] [address] RBC 4.74 10 6/mcL Normal 4.20-5.40 [facility] ([place]) Comment on above: Performed By: #### G FR, CMP, CBC, ADIFF, LIPID, VIDH, ANEU #### [address] [address] WBC 10.8 10 3/mcL Normal 4.6-10.8 [facility] ([place]) Comment on above: Performed By: #### G FR, CMP, CBC, ADIFF, LIPID, VIDH, ANEU #### [address] [address] CMPon 04-17-2023 Albumin Level 3.9 G/dL Normal 3.5-5.0 [facility] ([place]) Comment on above: Performed By: #### G FR, CMP, CBC, ADIFF, LIPID, VIDH, ANEU #### [address] [address] Albumin/Globulin [Mass ratio] 1.1 {ratio} Normal 1.1-2.5 [facility] ([place]) Comment on above: Performed By: #### G FR, CMP, CBC, ADIFF, LIPID, VIDH, ANEU #### [address] [address] ALP [Catalytic activity/Vol] 72 U/L Normal 40-135 [facility] ([place]) Comment on above: Performed By: #### G FR, CMP, CBC, ADIFF, LIPID, VIDH, ANEU #### [address] [address] ALT [Catalytic activity/Vol] 15 U/L Normal 14-59 [facility] ([place]) Comment on above: Performed By: #### G FR, CMP, CBC, ADIFF, LIPID, VIDH, ANEU #### [address] [address] AST [Catalytic activity/Vol] 14 U/L Normal 10-40 [facility] ([place]) Comment on above: Performed By: #### G FR, CMP, CBC, ADIFF, LIPID, VIDH, ANEU #### [address] [address] Bili Total 0.2 mg/dL Normal 0.2-1.0 [facility] ([place]) Comment on above: Result Comment: Use of this assay is not recommended for patients undergoing treatment with eltrombopag due to the potential for falsely elevated results. Performed By: #### G FR, CMP, CBC, ADIFF, LIPID, VIDH, ANEU #### [address] [address] BUN/Creatinine Ratio 10 ratio Normal 7-27 [facility] ([place]) Comment on above: Performed By: #### G FR, CMP, CBC, ADIFF, LIPID, VIDH, ANEU #### [address] [address] Calcium [Mass/Vol] 9.3 mg/dL Normal 8.4-10.2 [facility] ([place]) Comment on above: Performed By: #### G FR, CMP, CBC, ADIFF, LIPID, VIDH, ANEU #### [address] [address] Chloride [Moles/Vol] 102 mmol/L Normal 98-107 [facility] ([place]) Comment on above: Performed By: #### G FR, CMP, CBC, ADIFF, LIPID, VIDH, ANEU #### [address] [address] CO2 [Moles/Vol] 27 mmol/L Normal 22-29 [facility] ([place]) Comment on above: Performed By: #### G FR, CMP, CBC, ADIFF, LIPID, VIDH, ANEU #### [address] [address] Creatinine [Mass/Vol] 1.02 mg/dL Normal 0.55-1.02 [facility] ([place]) Comment on above: Performed By: #### G FR, CMP, CBC, ADIFF, LIPID, VIDH, ANEU #### [address] [address] Electrolyte Balance 7.0 mEq/L Normal 4.0-15.0 [facility] ([place]) Comment on above: Performed By: #### G FR, CMP, CBC, ADIFF, LIPID, VIDH, ANEU #### [address] [address] Globulin 3.5 G/dL Normal [facility] ([place]) Comment on above: Performed By: #### G FR, CMP, CBC, ADIFF, LIPID, VIDH, ANEU #### [address] [address] Glucose [Mass/Vol] 107 mg/dL High 70-105 [facility] ([place]) Comment on above: Performed By: #### G FR, CMP, CBC, ADIFF, LIPID, VIDH, ANEU #### [address] [address] Potassium [Moles/Vol] 4.5 mmol/L Normal 3.5-5.1 [facility] ([place]) Comment on above: Performed By: #### G FR, CMP, CBC, ADIFF, LIPID, VIDH, ANEU #### [address] [address] Sodium [Moles/Vol] 136 mmol/L Normal 136-145 [facility] ([place]) Comment on above: Performed By: #### G FR, CMP, CBC, ADIFF, LIPID, VIDH, ANEU #### [address] [address] Total Protein 7.4 G/dL Normal 6.4-8.2 [facility] ([place]) Comment on above: Performed By: #### G FR, CMP, CBC, ADIFF, LIPID, VIDH, ANEU #### [address] [address] Urea nitrogen [Mass/Vol] 10 mg/dL Normal 7-18 [facility] ([place]) Comment on above: Performed By: #### G FR, CMP, CBC, ADIFF, LIPID, VIDH, ANEU #### [address] [address] HCGQon 04-17-2023 hCG, quantitative <1.0 Normal [facility] ([place]) Comment on above: Result Comment: HCG Levels with Gestation age: 0.2- 1 week. . . . . . . . . . . . . . . 5 - 50 mIU/mL 1-2 weeks . . . . . . . . . . . . . . . 50 - 500 mIU/mL 2-3 weeks . . . . . . . . . . . . . . . 100 - 5,000 mIU/ml 3-4 weeks . . . . . . . . . . . . . . . 500 - 10,000 mIU/mL 4-5 weeks . . . . . . . . . . . . . . . 1,000 - 5,000 mIU/mL 5-6 weeks . . . . . . . . . . . . . . . 10,000 - 100,000 mIU/mL 6-8 weeks . . . . . . . . . . . . . . . 15,000 - 200,000 mIU/mL 2-3 months . . . . . . . . . . . . . . . 10,000 - 100,000 mIU/mL Performed By: #### G FR, CMP, CBC, ADIFF, LIPID, VIDH, ANEU #### [address] [address] LIPIDon 04-17-2023 Cholesterol [Mass/Vol] 139 mg/dL Normal 0-200 Count includes the [facility] ([place]) Comment on above: Result Comment: Chol esterol Reference Interval: Less than 200 Desirable 200-239 Borderline high risk 240 and above High risk Performed By: #### G FR, CMP, CBC, ADIFF, LIPID, VIDH, ANEU #### [address] [address] Cholesterol in HDL [Mass/Vol] 62 mg/dL High 40-60 [facility] ([place]) Comment on above: Performed By: #### G FR, CMP, CBC, ADIFF, LIPID, VIDH, ANEU #### [address] [address] Cholesterol in LDL [Mass/Vol] 58 mg/dL Normal 0-130 [facility] ([place]) Comment on above: Performed By: #### G FR, CMP, CBC, ADIFF, LIPID, VIDH, ANEU #### [address] [address] Triglyceride [Mass/Vol] 94 mg/dL Normal 0-150 A [facility] ([place]) Comment on above: Result Comment: Trig lyceride Reference Interval: Less than 150 Normal 150-199 Borderline high risk 200-499 High risk 500 or higher Very high risk Performed By: #### G FR, CMP, CBC, ADIFF, LIPID, VIDH, ANEU #### [address] [address] VIDHon 04-17-2023 Vit. D 25-Hydroxy 36.0 ng/mL Normal [facility] ([place]) Comment on above: Result Comment: Inte rpretive Values Based on Total 25(OH) Vitamin D: Deficient <20 ng/mL Insufficient 20 - <30 ng/mL Sufficient 30-100 ng/mL Performed By: #### G FR, CMP, CBC, ADIFF, LIPID, VIDH, ANEU #### [address] [place], [place] [address] No Panel Informationon 01-31 Culture Urine 10,000 - 50,000 cfu/ml Multiple bacterial morphotypes present. Probable Contamination. Suggest recollection if clinically indicated. [facility] Work Phone: LABORATORYOrdered By: Jay Weiss on 03-15-2022 ADMITTED TO INTENSIVE CARE UNIT FOR CONDITION OF INTEREST:FIND:PT:^PATIE NT:ORD: No (03/15/22 10:37 AM) Invalid Interpretation Code AO Auto Urine SS EMPLOYED IN A HEALTHCARE SETTING:FIND:PT:^PATIEN T:ORD: No (03/15/22 10:37 AM) Invalid Interpretation Code AO Auto Urine SS FIRST TEST FOR CONDITION OF INTEREST:FIND:PT:^PATIE NT:ORD: No (03/15/22 10:37 AM) Invalid Interpretation Code AO Auto Urine SS HAS SYMPTOMS RELATED TO CONDITION OF INTEREST:FIND:PT:^PATIE NT:ORD: No (03/15/22 10:37 AM) Invalid Interpretation Code AO Auto Urine SS Illness or injury onset date and time [id number] Invalid Interpretation Code AO Auto Urine SS Patient was hospitalized because of this condition No (03/15/22 10:37 AM) Invalid Interpretation Code AO Auto Urine SS status Not (03/15/22 10:37 AM) Invalid Interpretation Code AO Auto Urine SS RESIDES IN A CONGREGATE CARE SETTING:FIND:PT:^PATIEN T:ORD: No (03/15/22 10:37 AM) Invalid Interpretation Code AO Auto Urine SS SARS-CoV-2 (COVID-19) RNA GOLDEN+probe Ql (Resp) Negative results do not preclude SARS-CoV-2 infection and should not be used as the sole basis for patient management decisions. Negative results must be combined with clinical observations, patient history, and epidemiological information.There is a risk of false negative values resulting from improperly collected, transported, or handled specimens.There is a risk of false negative values due to the presence of sequence variants in the pathogen targets of the assay, procedural errors, amplification inhibitors in specimens, or inadequate numbers of organisms for amplification.FLEX SARS-CoV-2 Assay is a Real-Time reverse-transcripta se polymerase chain reaction (RT-PCR) based qualitative in vitro diagnostic test intended for the qualitative detection of nucleic acid from the SARS-CoV-2 in nasopharyngeal swab specimens collected from individuals suspected of COVID-19 by their healthcare provider. Testing is limited to laboratories certified under the Clinical Laboratory Improvement Amendments of 1988 (CLIA), 42 U.S.C. 263a, to perform moderate and high complexity tests. Invalid Interpretation Code AO Auto Urine SS LABORATORYOrdered By: Jay Weiss on 03-01-2022 Albumin BCP dye [Mass/Vol] 3.8 G/dL Invalid Interpretation Code 3.5 - 5.0 G/dL AO ADM SS Albumin/Globulin [Mass ratio] 1.5 {ratio} Invalid Interpretation Code 1.1 - 2.5 ratio AO ADM SS ALP [Catalytic activity/Vol] 81 U/L Invalid Interpretation Code 40 - 135 U/L AO ADM SS ALT With P-5'-P [Catalytic activity/Vol] 19 U/L Invalid Interpretation Code 14 - 59 U/L AO ADM SS AST With P-5'-P [Catalytic activity/Vol] 12 U/L Invalid Interpretation Code 10 - 40 U/L AO ADM SS Bilirubin [Mass/Vol] 0.4 mg/dL Invalid Interpretation Code 0.2 - 1.0 mg/dL AO ADM SS Calcium [Mass/Vol] 8.3 mg/dL Invalid Interpretation Code 8.4 - 10.2 mg/dL AO ADM SS Chloride [Moles/Vol] 106 mmol/L Invalid Interpretation Code 98 - 107 mmol/L AO ADM SS Cholesterol [Mass/Vol] 129 mg/dL Invalid Interpretation Code 0 - 200 mg/dL AO ADM SS Cholesterol in HDL [Mass/Vol] 65 mg/dL Invalid Interpretation Code 40 - 60 mg/dL AO ADM SS Cholesterol in LDL [Mass/Vol] 57 mg/dL Invalid Interpretation Code 0 - 130 mg/dL AO ADM SS CO2 [Moles/Vol] 30 mmol/L Invalid Interpretation Code 22 - 29 mmol/L AO ADM SS Creatinine [Mass/Vol] 0.74 mg/dL Invalid Interpretation Code 0.55 - 1.02 mg/dL AO ADM SS Electrolyte Balance 6.0 mEq/L Invalid Interpretation Code 4.0 - 15.0 mEq/L AO ADM SS Globulin 2.6 G/dL Invalid Interpretation Code AO ADM SS Glucose [Mass/Vol] 84 mg/dL Invalid Interpretation Code 70 - 105 mg/dL AO ADM SS Potassium [Moles/Vol] 4.2 mmol/L Invalid Interpretation Code 3.5 - 5.1 mmol/L AO ADM SS Protein [Mass/Vol] 6.4 G/dL Invalid Interpretation Code 6.4 - 8.2 G/dL AO ADM SS Sodium [Moles/Vol] 142 mmol/L Invalid Interpretation Code 136 - 145 mmol/L AO ADM SS Triglyceride [Mass/Vol] 34 mg/dL Invalid Interpretation Code 0 - 150 mg/dL AO ADM SS Urea nitrogen [Mass/Vol] 10 mg/dL Invalid Interpretation Code 7 - 18 mg/dL AO ADM SS Urea nitrogen/Creatinine [Mass ratio] 14 ratio Invalid Interpretation Code 7 - 27 ratio AO ADM SS LABORATORYOrdered By: Radha Fernando on 03-01-2022 Basophil, Absolute 0.0 103/mcL Invalid Interpretation Code 0.0 - 0.2 10^3/mcL AO Workflow SS Basophils/100 WBC (Bld) 0.4 % Invalid Interpretation Code 0.0 - 2.5 % AO Workflow SS Eosinophil, Absolute 0.3 103/mcL Invalid Interpretation Code 0.0 - 0.4 10^3/mcL AO Workflow SS Eosinophils/100 WBC (Bld) 2.6 % Invalid Interpretation Code 0.0 - 7.0 % AO Workflow SS Erythrocyte distribution width (RBC) [Ratio] 13.9 % Invalid Interpretation Code 11.5 - 14.5 % AO Workflow SS Hematocrit (Bld) [Volume fraction] 41.0 % Invalid Interpretation Code 37.0 - 47.0 % AO Workflow SS Hemoglobin (Bld) [Mass/Vol] 14.0 G/dL Invalid Interpretation Code 12.0 - 16.0 G/dL AO Workflow SS Lymphocyte, Absolute 2.8 103/mcL Invalid Interpretation Code 0.8 - 3.9 10^3/mcL AO Workflow SS Lymphocytes/100 WBC (Bld) 24.5 % Invalid Interpretation Code 10.0 - 50.0 % AO Workflow SS MCH (RBC) [Entitic mass] 29.8 pg Invalid Interpretation Code 27.0 - 31.2 pg AO Workflow SS MCHC 34.2 G/dL Invalid Interpretation Code 33.0 - 37.0 G/dL AO Workflow SS MCV (RBC) [Entitic vol] 86.9 fL Invalid Interpretation Code 80.0 - 94.0 fL AO Workflow SS Monocyte, Absolute 1.0 103/mcL Invalid Interpretation Code 0.2 - 1.0 10^3/mcL AO Workflow SS Monocytes/100 WBC (Bld) 9.2 % Invalid Interpretation Code 1.7 - 13.0 % AO Workflow SS Neutrophil, Absolute 7.2 103/mcL Invalid Interpretation Code 2.9 - 6.2 10^3/mcL AO Workflow SS Neutrophils/100 WBC (Bld) 63.3 % Invalid Interpretation Code 37.0 - 80.0 % AO Workflow SS Platelet mean volume (Bld) [Entitic vol] 8.8 fL Invalid Interpretation Code 7.4 - 10.4 fL AO Workflow SS Platelets (Bld) [#/Vol] 227 103/mcL Invalid Interpretation Code 130 - 400 10^3/mcL AO Workflow SS RBC (Bld) [#/Vol] 4.72 106/mcL Invalid Interpretation Code 4.20 - 5.40 10^6/mcL AO Workflow SS WBC 11.3 103/mcL Invalid Interpretation Code 4.6 - 10.8 10^3/mcL AO Workflow SS LABORATORYOrdered By: SYSTEM SYSTEM on 03-01-2022 GFR 115 ml/min/1.73sqm Invalid Interpretation Code AO Chemistry S GFR Non- 95 ml/min/1.73sqm Invalid Interpretation Code AO Chemistry S No Panel Informationon 10-12 Culture Urine 50,000 - 100,000 cfu/ml including 3,000 cfu/ml Group B Beta Hemolytic Strep (Strep agalactiae) Sensitivity testing is not recommended for one of the following reasons: 1. Established susceptibility patterns are available or 2. Interpretative criteria are not available. Multiple bacterial morphotypes present. Probable Contamination. Suggest recollection if clinically indicated. [facility] Work Phone: LABORATORYOrdered By: Jay Weiss on 08-30-2021 Albumin BCP dye [Mass/Vol] 4.0 G/dL Invalid Interpretation Code 3.5 - 5.0 G/dL AO ADM SS Albumin/Globulin [Mass ratio] 1.4 {ratio} Invalid Interpretation Code 1.1 - 2.5 ratio AO ADM SS ALP [Catalytic activity/Vol] 87 U/L Invalid Interpretation Code 40 - 135 U/L AO ADM SS ALT With P-5'-P [Catalytic activity/Vol] 17 U/L Invalid Interpretation Code 14 - 59 U/L AO ADM SS AST With P-5'-P [Catalytic activity/Vol] 16 U/L Invalid Interpretation Code 10 - 40 U/L AO ADM SS Bilirubin [Mass/Vol] 0.4 mg/dL Invalid Interpretation Code 0.2 - 1.0 mg/dL AO ADM SS Calcium [Mass/Vol] 8.6 mg/dL Invalid Interpretation Code 8.4 - 10.2 mg/dL AO ADM SS Chloride [Moles/Vol] 105 mmol/L Invalid Interpretation Code 98 - 107 mmol/L AO ADM SS Cholesterol [Mass/Vol] 119 mg/dL Invalid Interpretation Code 0 - 200 mg/dL AO ADM SS Cholesterol in HDL [Mass/Vol] 62 mg/dL Invalid Interpretation Code 40 - 60 mg/dL AO ADM SS Cholesterol in LDL [Mass/Vol] 42 mg/dL Invalid Interpretation Code 0 - 130 mg/dL AO ADM SS CO2 [Moles/Vol] 27 mmol/L Invalid Interpretation Code 22 - 29 mmol/L AO ADM SS Creatinine [Mass/Vol] 0.71 mg/dL Invalid Interpretation Code 0.55 - 1.02 mg/dL AO ADM SS Electrolyte Balance 10.0 mEq/L Invalid Interpretation Code 4.0 - 15.0 mEq/L AO ADM SS Free T4 [Mass/Vol] 0.90 ng/dL Invalid Interpretation Code 0.76 - 1.46 ng/dL AO ADM SS Globulin 2.9 G/dL Invalid Interpretation Code AO ADM SS Glucose [Mass/Vol] 81 mg/dL Invalid Interpretation Code 70 - 105 mg/dL AO ADM SS Potassium [Moles/Vol] 4.1 mmol/L Invalid Interpretation Code 3.5 - 5.1 mmol/L AO ADM SS Protein [Mass/Vol] 6.9 G/dL Invalid Interpretation Code 6.4 - 8.2 G/dL AO ADM SS Sodium [Moles/Vol] 142 mmol/L Invalid Interpretation Code 136 - 145 mmol/L AO ADM SS Triglyceride [Mass/Vol] 75 mg/dL Invalid Interpretation Code 0 - 150 mg/dL AO ADM SS TSH Qn 1.64 m[IU]/L Invalid Interpretation Code 0.36 - 3.74 mcIU/mL AO ADM SS Urea nitrogen [Mass/Vol] 9 mg/dL Invalid Interpretation Code 7 - 18 mg/dL AO ADM SS Urea nitrogen/Creatinine [Mass ratio] 13 ratio Invalid Interpretation Code 7 - 27 ratio AO ADM SS LABORATORYOrdered By: Micheline Mi on 08-30-2021 Basophil, Absolute 0.10 103/mcL Invalid Interpretation Code 0.00 - 0.19 10^3/mcL AO Auto Heme SS Basophils/100 WBC (Bld) 0.6 % Invalid Interpretation Code 0.0 - 2.5 % AO Auto Heme SS Eosinophil, Absolute 0.30 103/mcL Invalid Interpretation Code 0.00 - 0.40 10^3/mcL AO Auto Heme SS Eosinophils/100 WBC (Bld) 2.3 % Invalid Interpretation Code 0.0 - 7.0 % AO Auto Heme SS Erythrocyte distribution width (RBC) [Ratio] 13.2 % Invalid Interpretation Code 11.5 - 14.5 % AO Auto Heme SS Hematocrit (Bld) [Volume fraction] 42.3 % Invalid Interpretation Code 37.0 - 47.0 % AO Auto Heme SS Hemoglobin (Bld) [Mass/Vol] 14.3 G/dL Invalid Interpretation Code 12.0 - 16.0 G/dL AO Auto Heme SS Lymphocyte, Absolute 2.70 103/mcL Invalid Interpretation Code 0.77 - 3.85 10^3/mcL AO Auto Heme SS Lymphocytes/100 WBC (Bld) 22.2 % Invalid Interpretation Code 10.0 - 50.0 % AO Auto Heme SS MCH (RBC) [Entitic mass] 29.7 pg Invalid Interpretation Code 27.0 - 31.2 pg AO Auto Heme SS MCHC (RBC) [Mass/Vol] 33.9 G/dL Invalid Interpretation Code 33.0 - 37.0 G/dL AO Auto Heme SS MCV (RBC) [Entitic vol] 87.5 fL Invalid Interpretation Code 80.0 - 94.0 fL AO Auto Heme SS Monocyte, Absolute 1.00 103/mcL Invalid Interpretation Code 0.15 - 1.00 10^3/mcL AO Auto Heme SS Monocytes/100 WBC (Bld) 8.4 % Invalid Interpretation Code 1.7 - 13.0 % AO Auto Heme SS Neutrophil, Absolute 8.00 103/mcL Invalid Interpretation Code 2.85 - 6.16 10^3/mcL AO Auto Heme SS Neutrophils/100 WBC (Bld) 66.5 % Invalid Interpretation Code 37.0 - 80.0 % AO Auto Heme SS Platelet mean volume (Bld) [Entitic vol] 8.9 fL Invalid Interpretation Code 7.4 - 10.4 fL AO Auto Heme SS Platelets (Bld) [#/Vol] 235 103/mcL Invalid Interpretation Code 130 - 400 10^3/mcL AO Auto Heme SS RBC (Bld) [#/Vol] 4.83 106/mcL Invalid Interpretation Code 4.20 - 5.40 10^6/mcL AO Auto Heme SS WBC (Bld) [#/Vol] 12.00 103/mcL Invalid Interpretation Code 4.60 - 10.80 10^3/mcL AO Auto Heme SS LABORATORYOrdered By: SYSTEM SYSTEM on 08-30-2021 Ferritin [Mass/Vol] 42.8 ng/mL Invalid Interpretation Code 8.0 - 252.0 ng/mL AH ADM SS GFR 122 ml/min/1.73sqm Invalid Interpretation Code AO Chemistry S GFR Non- 100 ml/min/1.73sqm Invalid Interpretation Code AO Chemistry S LABORATORYOrdered By: Jay Weiss on 07-11-2021 ADMITTED TO INTENSIVE CARE UNIT FOR CONDITION OF INTEREST:FIND:PT:^PATIE NT:ORD: No (07/11/21 1:39 PM) Invalid Interpretation Code AO Auto Urine SS EMPLOYED IN A HEALTHCARE SETTING:FIND:PT:^PATIEN T:ORD: No (07/11/21 1:39 PM) Invalid Interpretation Code AO Auto Urine SS FIRST TEST FOR CONDITION OF INTEREST:FIND:PT:^PATIE NT:ORD: No (07/11/21 1:39 PM) Invalid Interpretation Code AO Auto Urine SS HAS SYMPTOMS RELATED TO CONDITION OF INTEREST:FIND:PT:^PATIE NT:ORD: Yes (07/11/21 1:39 PM) Invalid Interpretation Code AO Auto Urine SS Illness or injury onset date and time [id number] Invalid Interpretation Code AO Auto Urine SS Patient was hospitalized because of this condition No (07/11/21 1:39 PM) Invalid Interpretation Code AO Auto Urine SS status Not (07/11/21 1:39 PM) Invalid Interpretation Code AO Auto Urine SS RESIDES IN A CONGREGATE CARE SETTING:FIND:PT:^PATIEN T:ORD: No (07/11/21 1:39 PM) Invalid Interpretation Code AO Auto Urine SS SARS-CoV-2 (COVID-19) RNA GOLDEN+probe Ql (Resp) Positive *ABN* (07/11/21 1:39 PM) Invalid Interpretation Code Negative AO Auto Urine SS SARS-CoV-2 (COVID-19) RNA GOLDEN+probe Ql (Unsp spec) Positive results are indicative of the presence of SARS-CoV-2 RNA; clinical correlation with patient history and other diagnostic information is necessary to determine patient infection status. Positive results do not rule out bacterial infection or co-infection with other viruses. The agent detected may not be the definite cause of disease. Laboratories within the [place] and its territories are required to report all positive results to the appropriate public health authorities.Detecti on of analyte target(s) does not imply that the corresponding virus(es) are infectious or are the causative agents for clinical symptoms.There is a risk of false positive values resulting from cross-contamination by target organisms, their nucleic acids or amplified product, or from non-specific signals in the assay.Optimal Blue SARS-CoV-2 Assay is a Real-Time reverse-transcripta se polymerase chain reaction (RT-PCR) based qualitative in vitro diagnostic test intended for the qualitative detection of nucleic acid from the SARS-CoV-2 in nasopharyngeal swab specimens collected from individuals suspected of COVID-19 by their healthcare provider. Testing is limited to laboratories certified under the Clinical Laboratory Improvement Amendments of 1988 (CLIA), 42 U.S.C. 263a, to perform moderate and high complexity tests. Invalid Interpretation Code AO Auto Urine SS No Panel Informationon 05-09 Culture Urine 50,000 - 100,000 cfu/ml Mixed growth consistent with normal urogenital chepe. [facility] Work Phone: CR Elbow 3+ Views Lefton CR Elbow 3+ Views Left Patient Name: PABLO ALARCON Diagnostic Radiology Exam Date/Time 04/17/2019 10:05:53 EDT Exam CR Elbow 3+ Views Left Ordering Physician MD OCHOA DYLAN R Accession Number [id number] CPT4 Codes 25269 () Reason For Exam pain Report Left elbow: 04/17/2019. Clinical Information: Pain. Findings: 3 views of the left elbow were obtained. No prior studies for comparison. There is deformity of the ulna. The ulna tapers off at its mid level. This appears to be congenital. There is also deformity of the radial head and capitellum of the humerus. These findings appear to be congenital in nature. There is no evidence of acute fracture or dislocation. No posterior joint effusion is identified. Report Dictated on Final Dictated: 04/17/2019 10:05 am Dictating Physician: MD ALEX RISA Signed Date and Time: 04/17/2019 10:06 am Signed by: MD ALEX RISA Transcribed Date and Time: 04/17/2019 10:05 [facility] Forearm 2 Views Lefton CR Forearm 2 Views Left Patient Name: PABLO ALARCON Diagnostic Radiology Exam Date/Time 04/17/2019 10:05:29 EDT Exam CR Forearm 2 Views Left Ordering Physician MD OCHOA DYLAN R Accession Number [id number] CPT4 Codes 37173 () Reason For Exam pain Report Left forearm: 04/17/2019. Clinical Information: Pain. Findings: 2 views of the left forearm from the wrist to the elbow were obtained. No prior studies for comparison. 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 There is deformity of the radial head involving of the radius. 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 The carpal bones appear to be hypoplastic as well. There is no evidence of acute fracture or dislocation. No radiopaque from bodies or subcutaneous emphysema are identified. IMPRESSION: Congenital anomaly as described above. No acute abnormalities identified. Report Dictated on Final Dictated: 04/17/2019 10:07 am Dictating Physician: MD ALEX RISA Signed Date and Time: 04/17/2019 10:09 am Signed by: MD ALEX RISA Transcribed Date and Time: 04/17/2019 10:07 [facility] XR ELBOW LEFT (MIN 3 VIEWS)o n 04-17-2019 Patient Name: PABLO ALARCON ---Diagnostic Radiology--- Exam Date/Time 04/17/2019 10:05:53 EDT Exam CR Elbow 3+ Views Left Ordering Physician MD OCHOA DYLAN R Accession Number [id number] CPT4 Codes 83358 () Reason For Exam pain Report Left elbow: 04/17/2019. Clinical Information: Pain. Findings: 3 views of the left elbow were obtained. No prior studies for comparison. There is deformity of the ulna. The ulna tapers off at its mid level. This appears to be congenital. There is also deformity of the radial head and capitellum of the humerus. These findings appear to be congenital in nature. There is no evidence of acute fracture or dislocation. No posterior joint effusion is identified. Report Dictated on --- Final --- Dictated: 04/17/2019 10:05 am Dictating Physician: MD ALEX RISA Signed Date and Time: 04/17/2019 10:06 am Signed by: MD ALEX RISA Transcribed Date and Time: 04/17/2019 10:05 [facility], [place] [place] Incoming Radiology Results From [facility] - 04/17/2019 10:08 AM EDT Patient Name: PABLO ALARCON ---Diagnostic Radiology--- Exam Date/Time 04/17/2019 10:05:53 EDT Exam CR Elbow 3+ Views Left Ordering Physician MD OCHOA DYLAN R Accession Number [id number] CPT4 Codes 89919 () Reason For Exam pain Report Left elbow: 04/17/2019. Clinical Information: Pain. Findings: 3 views of the left elbow were obtained. No prior studies for comparison. There is deformity of the ulna. The ulna tapers off at its mid level. This appears to be congenital. There is also deformity of the radial head and capitellum of the humerus. These findings appear to be congenital in nature. There is no evidence of acute fracture or dislocation. No posterior joint effusion is identified. Report Dictated on --- Final --- Dictated: 04/17/2019 10:05 am Dictating Physician: MD ALEX RISA Signed Date and Time: 04/17/2019 10:06 am Signed by: MD ALEX RISA Transcribed Date and Time: 04/17/2019 10:05 [place], [place] XR RADIUS ULNA LEFT (2 VIEWS )on 04-17-2019 Patient Name: PABLO ALARCON ---Diagnostic Radiology--- Exam Date/Time 04/17/2019 10:05:29 EDT Exam CR Forearm 2 Views Left Ordering Physician MD OCHOA DYLAN R Accession Number [id number] CPT4 Codes 91434 () Reason For Exam pain Report Left forearm: 04/17/2019. Clinical Information: Pain. Findings: 2 views of the left forearm from the wrist to the elbow were obtained. No prior studies for comparison. 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 There is deformity of the radial head involving of the radius. 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 The carpal bones appear to be hypoplastic as well. There is no evidence of acute fracture or dislocation. No radiopaque from bodies or subcutaneous emphysema are identified. IMPRESSION: Congenital anomaly as described above. No acute abnormalities identified. Report Dictated on --- Final --- Dictated: 04/17/2019 10:07 am Dictating Physician: MD ALEX RISA Signed Date and Time: 04/17/2019 10:09 am Signed by: MD ALEX RISA Transcribed Date and Time: 04/17/2019 10:07 [place], [place], [place] Incoming Radiology Results From [facility] - 04/17/2019 10:11 AM EDT Patient Name: PABLO ALARCON ---Diagnostic Radiology--- Exam Date/Time 04/17/2019 10:05:29 EDT Exam CR Forearm 2 Views Left Ordering Physician MD OCHOA DYLAN R Accession Number [id number] CPT4 Codes 85158 () Reason For Exam pain Report Left forearm: 04/17/2019. Clinical Information: Pain. Findings: 2 views of the left forearm from the wrist to the elbow were obtained. No prior studies for comparison. 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 There is deformity of the radial head involving of the radius. 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 The carpal bones appear to be hypoplastic as well. There is no evidence of acute fracture or dislocation. No radiopaque from bodies or subcutaneous emphysema are identified. IMPRESSION: Congenital anomaly as described above. No acute abnormalities identified. Report Dictated on --- Final --- Dictated: 04/17/2019 10:07 am Dictating Physician: MD ALEX RISA Signed Date and Time: 04/17/2019 10:09 am Signed by: MD ALEX RISA Transcribed Date and Time: 04/17/2019 10:07 [place], [place] Vital Signs Date Time Vital Sign Value Performing Clinician Facility 09-09-2024 13:46-0500 Body height 156.2 cm Braden Christopher MD Work Phone: [facility] 09-09-2024 13:46-0500 Body mass index (BMI) [Ratio] 30.11 kg/m2 Braden Christopher MD Work Phone: [facility] 09-09-2024 13:46-0500 Body weight 73.48 kg Braden Christopher MD Work Phone: [facility] 09-09-2024 13:46-0500 Diastolic blood pressure 100 mm[Hg] Braden Christopher MD Work Phone: [facility] 09-09-2024 13:46-0500 Heart rate 84 /min Braden Christopher MD Work Phone: [facility] 09-09-2024 13:46-0500 Systolic blood pressure 146 mm[Hg] Braden Christopher MD Work Phone: [facility] 07-15-2024 13:56-0500 Body mass index (BMI) [Ratio] 30.04 kg/m2 Jocelyn Botello MD Work Phone: [facility] 07-15-2024 13:56-0500 Body weight 72.12 kg Jocelyn Botello MD Work Phone: [facility] 07-15-2024 13:56-0500 Diastolic blood pressure 96 mm[Hg] Jocelyn Botello MD Work Phone: [facility] 07-15-2024 13:56-0500 Systolic blood pressure 134 mm[Hg] Jocelyn Botello MD Work Phone: [facility] 06-17-2024 12:57-0500 Body mass index (BMI) [Ratio] 29.97 kg/m2 Kofi Monreal PRODUCTION DRILLING MACHINE OPERATOR.CNM Work Phone: [facility] 06-17-2024 12:57-0500 Body weight 71.94 kg Kofi Monreal PRODUCTION DRILLING MACHINE OPERATOR.CNM Work Phone: [facility] 06-17-2024 12:57-0500 Diastolic blood pressure 78 mm[Hg] Kofi Monreal PRODUCTION DRILLING MACHINE OPERATOR.CNM Work Phone: [facility] 06-17-2024 12:57-0500 Systolic blood pressure 126 mm[Hg] Kofi Monreal PRODUCTION DRILLING MACHINE OPERATOR.CNM Work Phone: [facility] 05-30-2024 09:15-0500 Body temperature 97.7 [degF] KELLE WALTERS MD [facility] 05-30-2024 09:15-0500 Diastolic Blood Pressure Non-Invasive 84 mm[Hg] KELLE WALTERS MD [facility] 05-30-2024 09:15-0500 Heart rate 98 /min KELLE WALTERS MD [facility] 05-30-2024 09:15-0500 Reason For Taking VItal Signs KELLE WALTERS MD [facility] 05-30-2024 09:15-0500 Respiratory rate 20 /min KELLE WALTERS MD [facility] 05-30-2024 09:15-0500 Systolic Blood Pressure Non-Invasive 109 mm[Hg] KELLE WALTERS MD [facility] 05-30-2024 09:01-0500 Body temperature 97.7 [degF] KELLE WALTERS MD [facility] 05-30-2024 09:01-0500 Diastolic Blood Pressure Non-Invasive 95 mm[Hg] KELLE WALTERS MD [facility] 05-30-2024 09:01-0500 Heart rate 102 /min KELLE WALTERS MD [facility] 05-30-2024 09:01-0500 Reason For Taking VItal Signs KELLE WALTERS MD [facility] 05-30-2024 09:01-0500 Respiratory rate 20 /min KELLE WALTERS MD [facility] 05-30-2024 09:01-0500 Systolic Blood Pressure Non-Invasive 140 mm[Hg] KELLE WALTERS MD [facility] 05-30-2024 08:45-0500 Body temperature 97.88 [degF] KELLE WALTERS MD [facility] 05-30-2024 08:45-0500 Heart rate 105 /min KELLE WALTERS MD [facility] 05-30-2024 08:45-0500 Reason For Taking VItal Signs KELLE WALTERS MD [facility] 05-30-2024 08:45-0500 Respiratory rate 20 /min KELLE WALTERS MD [facility] 05-30-2024 08:30-0500 Heart rate 103 /min KELLE WALTERS MD [facility] 05-30-2024 07:49-0500 Heart rate 123 /min KELLE WALTERS MD [facility] 05-30-2024 07:30-0500 Blood Pressure Cuff Size KELLE WALTERS MD [facility] 05-30-2024 07:30-0500 Blood Pressure Location KELLE WALTERS MD [facility] 05-30-2024 07:30-0500 Blood Pressure Method KELLE WALTERS MD [facility] 05-30-2024 07:22-0500 Body height 155 cm KELLE WALTERS MD [facility] 05-30-2024 07:22-0500 Body weight 80.3 kg KELLE WALTERS MD [facility] 05-30-2024 07:22-0500 Body weight 33.42 kg/m2 KELLE WALTERS MD [facility] 05-29-2024 10:53-0500 Body mass index (BMI) [Ratio] 33.27 kg/m2 Michele Garland MD Work Phone: [facility] 05-29-2024 10:53-0500 Body weight 80.65 kg Michele Garland MD Work Phone: [facility] 05-29-2024 10:53-0500 Diastolic blood pressure 95 mm[Hg] Michele Garland MD Work Phone: [facility] 05-29-2024 10:53-0500 Systolic blood pressure 138 mm[Hg] Michele Garland MD Work Phone: [facility] 05-26-2024 10:16-0500 Diastolic blood pressure 88 mm[Hg] Jocelyn Botello MD Work Phone: [facility] 05-26-2024 10:16-0500 Systolic blood pressure 128 mm[Hg] Jocelyn Botello MD Work Phone: [facility] 05-26-2024 09:10-0500 Body mass index (BMI) [Ratio] 33.15 kg/m2 Viola Somers MD Work Phone: [facility] 05-26-2024 09:10-0500 Body weight 80.38 kg Viola Somers MD Work Phone: [facility] 05-18-2024 12:51-0500 Body height 155.7 cm Jonathan Manuel MD Work Phone: [facility] 05-18-2024 12:51-0500 Body mass index (BMI) [Ratio] 32.56 kg/m2 Jonathan Manuel MD Work Phone: [facility] 05-18-2024 12:51-0500 Body weight 78.93 kg Jonathan Manuel MD Work Phone: [facility] 05-18-2024 12:51-0500 Diastolic blood pressure 99 mm[Hg] Jonathan Manuel MD Work Phone: [facility] 05-18-2024 12:51-0500 Heart rate 92 /min Jonathan Manuel MD Work Phone: [facility] 05-18-2024 12:51-0500 Systolic blood pressure 143 mm[Hg] Jonathan Manuel MD Work Phone: [facility] 05-12-2024 07:53-0500 Body mass index (BMI) [Ratio] 31.85 kg/m2 Viola Somers MD Work Phone: [facility] 05-12-2024 07:53-0500 Body weight 77.2 kg Viola Somers MD Work Phone: [facility] 04-24-2024 12:56-0400 Body height 155.7 cm Michell Avalos APRN.CNM Work Phone: [facility] 04-24-2024 12:56-0400 Body mass index (BMI) [Ratio] 30.31 kg/m2 Michell Robbie PRODUCTION DRILLING MACHINE OPERATOR.CNM Work Phone: [facility] 04-24-2024 12:56-0400 Body weight 73.48 kg Michell Avalos PRODUCTION DRILLING MACHINE OPERATOR.CNM Work Phone: [facility] Comment on above: 162.0 04-24-2024 12:56-0400 Diastolic blood pressure 88 mm[Hg] Michell Avalos PRODUCTION DRILLING MACHINE OPERATOR.CNM Work Phone: [facility] 04-24-2024 12:56-0400 Systolic blood pressure 140 mm[Hg] Michell Robbie PRODUCTION DRILLING MACHINE OPERATOR.CNM Work Phone: [facility] 04-23-2024 12:35-0400 Body temperature 98.4 [degF] Alice Armando MD Work Phone: [facility] 04-23-2024 12:35-0400 Diastolic blood pressure 73 mm[Hg] Alice Armando MD Work Phone: [facility] 04-23-2024 12:35-0400 Heart rate 86 /min Alice Armando MD Work Phone: [facility] 04-23-2024 12:35-0400 Respiratory rate 16 /min Alice Armando MD Work Phone: [facility] 04-23-2024 12:35-0400 SaO2% (BldA) [Mass fraction] 96 % Alice Armando MD Work Phone: [facility] 04-23-2024 12:35-0400 Systolic blood pressure 108 mm[Hg] Alice Armando MD Work Phone: [facility] 04-22-2024 09:12-0400 Body height 154.9 cm Alice Armando MD Work Phone: [facility] 04-22-2024 09:12-0400 Body mass index (BMI) [Ratio] 32.12 kg/m2 Alice Armando MD Work Phone: [facility] 04-22-2024 09:12-0400 Body weight 77.11 kg Alice Armando MD Work [facility] [facility] 12-21-2023 21:49-0400 Diastolic Blood Pressure Non-Invasive 89 mm[Hg] DR CINDY FIORE DO [facility] 12-21-2023 21:49-0400 Heart rate 79 /min DR CINDY FIORE DO [facility] 12-21-2023 21:49-0400 Respiratory rate 17 /min DR CINDY FIORE DO [facility] 12-21-2023 21:49-0400 Systolic Blood Pressure Non-Invasive 128 mm[Hg] DR CINDY FIORE DO [facility] 12-21-2023 18:06-0400 Blood Pressure Cuff Size DR CINDY FIORE DO [facility] 12-21-2023 18:06-[address] CINDY FIORE DO [facility] 12-21-2023 18:06-[address] CINDY FIORE DO [facility] 12-21-2023 18:06-0400 Body temperature 98.6 [degF] DR CINDY FIOER DO [facility] 12-21-2023 18:06-0400 Diastolic Blood Pressure Non-Invasive 107 mm[Hg] DR CINDY FIORE DO [facility] 12-21-2023 18:06-0400 Heart rate 88 /min DR CINDY FIORE DO [facility] 12-21-2023 18:06-0400 Respiratory rate 16 /min DR CINDY FIORE DO [facility] 12-21-2023 18:06-0400 Systolic Blood Pressure Non-Invasive 155 mm[Hg] DR CINDY FIORE DO [facility] 04-29-2023 15:05-0400 Body temperature 98.6 [degF] [facility] 04-29-2023 15:05-0400 Diastolic blood pressure 94 mm[Hg] [facility] 04-29-2023 15:05-0400 Heart rate 89 /min [facility] 04-29-2023 15:05-0400 Respiratory rate 16 /min [facility] 04-29-2023 15:05-0400 SaO2% (BldA) [Mass fraction] 98 % [facility] 04-29-2023 15:05-0400 Systolic blood pressure 143 mm[Hg] [facility] 04-29-2023 13:22-0400 Body height 154.94 cm [facility] 03-15-2022 10:20-0400 Body temperature 98.24 [degF] JESSIE AVENDAÑO MD [facility] 03-15-2022 10:20-0400 Body weight 68.2 kg JESSIE AVENDAÑO MD [facility] 03-15-2022 10:20-0400 Diastolic blood pressure 72 mm[Hg] JESSIE AVENDAÑO MD [facility] 03-15-2022 10:20-0400 Heart rate 97 /min JESSIE AVENDAÑO MD [facility] 03-15-2022 10:20-0400 Respiratory rate 18 /min JESSIE AVENDAÑO MD [facility] 03-15-2022 10:20-0400 Systolic blood pressure 120 mm[Hg] JESSIE AVENDAÑO MD [facility] Encounters Encounter Date Encounter Type Care Provider Facility Start: 02-11-2025 End: 02-11-[address] Tomás Dickey MD Work Phone: -Cat Scan [facility] Start: 02-11-2025 End: 02-11-[address] Isaiah Kumar MD -Cat Scan [facility] Work Phone: Start: 02-11-2025 End: 02-11-2025 ambulatory Isaiah Kumar Facility:[facility] Start: 01-05-2025 Non-patient / Non-visit Dr. Deidra acosta MD -[facility] Work Phone: Start: 12-04-2024 End: 12-04-2024 Patient encounter procedure TOMÁS DICKEY MD [facility] Start: 12-04-2024 End: 12-08-2024 ambulatory TOMÁS DICKEY MD Facility:[facility] Start: 12-04-2024 End: 12-08-2024 Outreach Lab [facility]S [facility]KEY [facility] Start: 09-09-2024 End: 09-09-2024 Nutrition therapy Braden Christopher MD Work Phone: [facility] Start: 09-09-2024 End: 09-09-2024 Patient encounter procedure Braden Christopher MD Work Phone: Cardiology Comment on above: Chronic hypertension with superimposed pre-eclampsia (Primary Dx); care and examination; Exercise counseling; Nutritional assessment; delivery; Low weight Start: 09-09-2024 End: 09-09-2024 ambulatory BRADEN CHRISTOPHER MD Facility:[facility] Start: 09-08-2024 End: 09-08-2024 ambulatory Gabriel Jacob APRN.CNP Work Phone: Cardiology Comment on above: Dias 8 Start: 09-08-2024 End: 09-08-2024 E-mail encounter from caregiver Gabriel Penix PRODUCTION DRILLING MACHINE OPERATOR.REHABILITATION MEDICINE PHYSICIAN Work Phone: Cardiology Start: 08-25-2024 ambulatory TOMÁS DICKEY [facility] Start: 07-20-2024 End: 07-20-2024 ambulatory [facility] Facility:[facility] Start: 07-15-2024 End: 07-15-2024 ambulatory [facility] Facility:[facility] Start: 07-15-2024 End: 07-15-2024 Patient encounter procedure Jocelyn Botello MD Work Phone: OB/Gynecology Comment on above: care and examination (Primary Dx); Encounter for IUD insertion; Anxiety and depression Start: 06-18-2024 End: 06-18-2024 ambulatory TOMÁS DICKEY Facility:[facility] Start: 06-18-2024 End: 06-18-2024 Patient encounter procedure Kofi Monreal PRODUCTION DRILLING MACHINE OPERATOR.CNM Work Phone: OB/Gynecology Comment on above: Candidiasis of breas t (Primary Dx); Lactating mother; thrush Start: 06-18-2024 End: 06-18-2024 Telephone encounter Lizzette Galan MD Work Phone: OB/Gynecology Comment on above: Patient Question Start: 06-17-2024 End: 06-17-2024 Telephone encounter Kofi Monreal APRN.CNM Work Phone: OB/Gynecology Comment on above: Missed Appointment Start: 06-17-2024 End: 06-17-2024 ambulatory [facility] Facility:[facility] Start: 06-17-2024 End: 06-17-2024 Patient encounter procedure Kofi Monreal PRODUCTION DRILLING MACHINE OPERATOR.CNM Work Phone: OB/Gynecology Comment on above: Pre-eclampsia in thi rd trimester (Primary Dx); Encounter for IUD insertion; 2 weeks follow-up; Post depression Start: 06-13-2024 End: 06-13-2024 Encounter Tomás Dickey MD Work Phone: [facility] Start: 06-11-2024 End: 06-11-2024 Encounter Tomás Dickey MD Work Phone: [facility] Start: 06-09-2024 End: 06-09-2024 Encounter Tomás Dickey MD Work Phone: [facility] Start: 06-08-2024 End: 06-08-2024 Telephone encounter Michele Garland MD Work Phone: OB/Gynecology Comment on above: Appointment Start: 06-02-2024 End: 06-02-2024 Chart abstracting Lashell Mccracken [facility] Work Phone: [facility] Comment on above: Family History Of (R ecommendations for Genetic Testing ) Start: 06-01-2024 End: 06-02-2024 ambulatory [facility] Provider [facility] Comment on above: Results Start: 06-01-2024 End: 06-02-2024 E-mail encounter from caregiver [facility] Provider [facility] Start: 06-01-2024 End: 06-01-2024 Telephone encounter Lashell Mccracken [facility] Work Phone: [facility] Comment on above: Results (MaterniT Ge hamilton Results) Start: 05-30-2024 End: 05-30-2024 Patient encounter procedure Syed Nesbitt RN NURSE DOT COMPLIANCE SPECIALIST Comment on above: Clinical Symptoms Start: 05-30-2024 End: 06-08-2024 Evaluation and management of inpatient TOMÁS STUART DICKEY Facility:[facility] Start: 05-30-2024 End: 05-30-2024 ambulatory Syed Nesbitt RN NURSE DOT COMPLIANCE SPECIALIST Start: 05-30-2024 End: 05-30-2024 SAME DAY STAY KELLE WALTERS [facility] Start: 05-29-2024 End: 05-29-2024 Telephone encounter Nurse Learning And Development Intern [facility] Work Phone: Obstetrics/Gynecology Comment on above: PRAF Start: 05-29-2024 End: 05-29-2024 ambulatory TOMÁS STUART NOBLE Facility:[facility] Start: 05-29-2024 End: 05-29-2024 Patient encounter procedure Michele Garland MD Work Phone: OB/Gynecology Comment on above: 31 weeks gestation o f (Primary Dx); Chronic hypertension affecting ; Supervision of other high risk pregnancies, second trimester Start: 05-27-2024 End: 06-02-2024 Telephone encounter Viola Somers MD Work Phone: OB/Gynecology Comment on above: Induction Date Start: 05-26-2024 End: 05-26-2024 Telephone encounter Lashell Mccracken [facility] Work Phone: [place] Comment on above: Orders (MaterniT Gen ome ) Start: 05-26-2024 End: 05-26-2024 ambulatory [facility] Facility:[facility] Start: 05-26-2024 End: 05-26-2024 Office outpatient visit 15 minutes Jocelyn Botello MD Work Phone: OB/Gynecology Comment on above: Chronic hypertension affecting (Primary Dx); 31 weeks gestation of ; Supervision of other high risk pregnancies, second trimester; Rubella non-immune status, antepartum Start: 05-26-2024 End: 05-26-2024 ambulatory TOMÁS DICKEY Facility:[facility] Start: 05-26-2024 End: 05-26-2024 Patient encounter procedure Learning And Development Intern [facility] Comment on above: Chronic hypertension affecting (Primary Dx); History of seizures; Anomaly of heart of fetus affecting , antepartum, single or unspecified fetus; 31 weeks gestation of Neurofibromatosis, 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 Work Phone: [facility] Comment on above: Maternal care for ot her (suspected) abnormality and damage, cardiac anomalies, fetus 1 (Primary Dx); Neurofibromatosis, type 1 (HCC); Family history of autism Start: 05-25-2024 End: 05-25-2024 Telemedicine consultation with patient Lashell Mccracken [facility] Work Phone: [facility] Start: 05-20-2024 End: 05-20-2024 Orders Only Viola Somers MD Work Phone: Maternal Medicine Comment on above: Anomaly of heart of fetus affecting , antepartum, single or unspecified fetus (Primary Dx) Start: 05-18-2024 End: 05-18-2024 Telephone encounter Toya Wilkerson RN [facility] Maternal Medicine Comment on above: Shovel Mechanic - O ther ( Care) Start: 05-18-2024 End: 05-18-2024 Patient encounter procedure Jonathan Manuel MD Work Phone: [facility] Maternal Medicine Comment on above: Pre-existing hyperte nsion complicating in third trimester (Primary Dx); Neurofibromatosis, type 1 (von Recklinghausen's disease) (HCC); Chronic hypertension affecting ; Family history of ischemic heart disease and other diseases of the circulatory system Care Plan (Car e Coordination) Start: 05-18-2024 End: 05-18-2024 ambulatory Toya Wilkerson RN [facility] Maternal Medicine Comment on above: Arrived Start: 05-15-2024 End: 05-15-2024 Telephone encounter Michell Avalos APRN.CNM Work Phone: OB/Gynecology Comment on above: Elevated BP Refill Request Start: 05-15-2024 End: 05-15-2024 ambulatory Michell Avalos Facility:[facility] Start: 05-13-2024 End: 05-13-2024 ambulatory Antoinette Franco RN NURSE DOT COMPLIANCE SPECIALIST Start: 05-13-2024 End: 05-13-2024 Patient encounter procedure Antoinette Franco RN NURSE DOT COMPLIANCE SPECIALIST Comment on above: Clinical Update; Med ication Question Start: 05-12-2024 End: 05-12-2024 Patient encounter procedure Viraj Morales MD Work Phone: OB/Gynecology Comment on above: 29 weeks gestation o f (Primary Dx); Supervision of other high risk pregnancies, second trimester; Chronic hypertension affecting ; Need for influenza vaccination; Need for Tdap vaccination Start: 05-12-2024 End: 05-12-2024 ambulatory TOMÁS STUART DICKEY Facility:[facility] Start: 05-12-2024 End: 05-12-2024 Patient encounter procedure Viola Somers MD Work Phone: Maternal Medicine Comment on above: Suspected anom kaya, antepartum, single or unspecified fetus (Primary Dx); Neurofibromatosis, type 1 (von Recklinghausen's disease) (HCC); Chronic hypertension affecting ; Poor historian; Arnold-Chiari malformation (HCC); 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); Abnormal ultrasound; History of seizures Encounter for anatomic survey (Primary Dx); with care elsewhere in third trimester; Obesity affecting in second trimester, unspecified obesity type; 29 weeks gestation of ; Suspected anomaly, antepartum, single or unspecified fetus Start: 05-08-2024 End: 05-08-2024 ambulatory Viraj Morales Facility:[facility] Start: 05-01-2024 End: 05-01-2024 ambulatory TOMÁS DICKEY [facility] Start: 04-28-2024 End: 04-29-2024 Telephone encounter Michell Avalos APRN.CNM Work Phone: Obstetrics/Gynecology Comment on above: PRAF Appointment Start: 04-24-2024 End: 04-24-2024 Telephone encounter Lionel Munoz APRN - GARCIA Work Phone: [facility] Comment on above: Appointment Start: 04-24-2024 End: 04-24-2024 ambulatory TOMÁS DICKEY Facility:[facility] Start: 04-24-2024 End: 04-24-2024 Patient encounter procedure Michell Avalos APRN.CNM Work Phone: OB/Gynecology Comment on above: Supervision of other high risk pregnancies, second trimester (Primary Dx); 26 weeks gestation of ; Chronic hypertension affecting ; History of seizures; History of nicotine vaping; Anxiety and depression; Neurofibromatosis, type 1 (von Recklinghausen's disease) (HCC); Arnold-Chiari malformation (HCC); Poor historian; Learning disability Start: 04-17-2024 End: 04-23-2024 Evaluation and management of inpatient Alice Armando MD Work Phone: [facility] Comment on above: labor in sec ond trimester without delivery (Primary Dx); Dizziness; Hypertension affecting in third trimester Start: 04-17-2024 ambulatory Xochitl Moran lity:[facility] Start: 04-17-2024 End: 04-17-2024 ambulatory Tomás Dickey Facility:[facility] Start: 03-10-2024 End: 03-10-2024 ambulatory TOMÁS DICKEY MD Facility:[facility] Start: 03-10-2024 End: 03-10-2024 Patient encounter procedure DOMINICK CURIEL PRODUCTION DRILLING MACHINE OPERATOR-CNM [facility] Start: 01-27-2024 End: 01-31-2024 ambulatory RODRICK ROBERSON PRODUCTION DRILLING MACHINE OPERATOR-REHABILITATION MEDICINE PHYSICIAN Facility:[facility] Start: 12-25-2023 End: 12-25-2023 ambulatory DANIEL SPANGLER DO Facility:[facility] Start: 12-25-2023 End: 12-25-2023 Patient encounter procedure DANIEL SPANGLER DO [facility] Start: 12-21-2023 End: 12-21-2023 Emergency department patient visit DR CINDY FIORE DO [facility] Start: 11-26-2023 End: 11-26-2023 ambulatory KVNG MCPHERSON PA-C Facility:[facility] Start: 11-26-2023 End: 11-26-2023 Patient encounter procedure KVNG MCPHERSON PA-C [facility] Start: 07-23-2023 End: 07-27-2023 ambulatory TOMÁS DICKEY MD Facility:[facility] Start: 07-23-2023 End: 07-27-2023 Outreach Lab TOMÁS DICKEY MD [facility] Start: 06-24-2023 End: 06-24-2023 ambulatory TOMÁS DICKEY MD Facility:[facility] Start: 06-24-2023 End: 06-24-2023 Patient encounter procedure KVNG ALEXIS-C [facility] Start: 05-06-2023 ambulatory TOMÁS DICKEY MD Faci lity:B Start: 04-29-2023 End: 04-29-2023 Emergency department patient visit [facility]-Emergency Department Work Phone: Start: 04-17-2023 End: 04-17-2023 ambulatory TOMÁS DICKEY MD Facility:[facility] Start: 04-12-2023 ambulatory TOMÁS DICKEY MD Faci lity:B Start: 02-25-2023 End: 02-25-2023 Patient encounter procedure KVNG WATTSC [facility] Start: 01-31-2023 End: 02-04-2023 Outreach Lab TOMÁS DICKEY MD [facility] Start: 09-10-2022 Non-patient / Non-visit Dr. Doyle Work Phone: [facility] Start: 09-10-2022 End: 09-10-[address] Tomás Dickey Work Phone: [facility] Work Phone: Start: 09-10-2022 End: 09-10-[address] Tomás Dickey Work Phone: [facility]-Pulmonary Services/Neurology Start: 04-30-2022 End: 04-30-2022 Patient encounter procedure KVNG ALEXIS-C [facility] Start: 03-15-2022 End: 03-15-2022 Emergency department patient visit JESSIE AVENDAÑO MD [facility] Start: 03-01-2022 End: 03-01-2022 Patient encounter procedure TOMÁS DICKEY MD [facility] Start: 10-12-2021 End: 10-16-2021 Outreach Lab TOMÁS DICKEY MD [facility] Start: 08-30-2021 End: 08-30-2021 Patient encounter procedure TOMÁS DICKEY MD [facility] Start: 07-11-2021 End: 07-11-2021 Patient encounter procedure BHAVESH JAMES PRODUCTION DRILLING MACHINE OPERATOR-REHABILITATION MEDICINE PHYSICIAN [facility] Start: 05-09-2021 End: 05-13-2021 Outreach Lab TOMÁS DICKEY MD [facility] Start: 04-17-2019 End: 04-17-2019 Subsequent hospital visit by physician Devyn Ochoa Work Phone: [facility] Comment on above: Left elbow pain Start: 01-10-2018 Evaluation and management of inpatient MICHELL MADERA Facility:[facility] Procedures Date Procedure Procedure Detail Performing Clinician Start: 02-11-[address] Tomás Dickey MD Work Phone: Start: 09-09-2024 Ecg routine ecg w/le ast 12 lds i&r only Braden Christopher MD Work Phone: Start: 07-15-2024 UA DIP,URINE HCG (POC) Jocelyn Botello MD Work Phone: Start: 05-30-2024 Antibody screen TOMÁS DICKEY Comment on above: Order Comment: Speci men Type: BLOOD SPECIMEN Ordering Facility: [facility] Address: [address] [place] [address] [place] [address] Performed By: #### T SPN #### [facility][1] BLOOD BANK CLIA [id number] [address] [place] [id number] [facility] Start: 05-26-2024 biophysical pr ofile non-stress testing Michele Garland MD Work Phone: Start: 05-12-2024 Urnls dip stick/tabl et rgnt non-auto w/o micrscp Viraj Morales MD Work Phone: Start: 05-12-2024 Us preg uterus after 1st trimest 07/08 gestation Michell Avalos APRN.CNM Work Phone: Start: 04-23-2024 Respiratory pathogen s DNA and RNA panel - Nasopharynx by GOLDEN with non-probe detection Blossom Reed DO Work Phone: Start: 04-23-2024 Blood count complete auto&auto difrntl wbc Sandy Kennedy DO Work Phone: Start: 04-23-2024 Manual Differential panel - Blood Sandy Kennedy DO Work Phone: Start: 04-22-2024 Glucose post glucose dose Blossom Reed DO Work Phone: Start: 04-22-2024 Dup-scan artl kristin abdl/pel/scrot&/rpr orgn com Santhosh Miranda MD Work Phone: Start: 04-22-2024 Echo tthrc r-t 2d w/ wom-mode compl spec&colr d Santhosh Miranda MD Work Phone: Start: 04-21-2024 Ecg routine ecg w/le ast 12 lds trcg only w/o i&r Blossom Hudsonu DO Work Phone: Start: 04-21-2024 Glucose quantitative blood xcpt reagent strip Bere Durant MD Work Phone: Start: 04-21-2024 Comprehensive metabo lic panel Santhosh Miranda MD Work Phone: Start: 04-20-2024 Antibody screen TOMÁS DICKEY Comment on above: Performed By: #### L [id number] ####Nursing Scheduler: MELANI STEINBERG ([phone])[facility] ([facility])[address] [place] [address] Start: 04-20-2024 End: 04-20-2024 Blood typing serologic abo Santhosh Miranda MD Work Phone: Start: 04-20-2024 End: 04-20-2024 Cyanocobalamin vitamin b-12 Narcisa baer PRODUCTION DRILLING MACHINE OPERATOR - REHABILITATION MEDICINE PHYSICIAN Work Phone: Start: 04-20-2024 Ecg routine ecg w/le ast 12 lds trcg only w/o i&r Santhosh Miranda MD Work Phone: Start: 04-20-2024 Glucose quantitative blood xcpt reagent strip Bere Durant MD Work Phone: Start: 04-20-2024 Glucose quantitative blood xcpt reagent strip Bere Durant MD Work Phone: Start: 04-20-2024 Us preg uterus after 1st trimest 07/08 gestation Rosalia Be DO Work Phone: Start: 04-19-2024 End: 04-19-2024 Mra head w/o contrst material Yolanda Duron MD Work Phone: Start: 04-19-2024 Glucose quantitative blood xcpt reagent strip Bere Durant MD Work Phone: Start: 04-19-2024 Glucose quantitative blood xcpt reagent strip Bere Durant MD Work Phone: Start: 04-19-2024 Glucose quantitative blood xcpt reagent strip Bere Durant MD Work Phone: Start: 04-19-2024 Glucose quantitative blood xcpt reagent strip Bere Durant MD Work Phone: Start: 04-19-2024 Volume measurement t imed collection each Aye Campbell DO Work Phone: Start: 04-18-2024 Glucose quantitative blood xcpt reagent strip Bere Durant MD Work Phone: Start: 04-18-2024 Glucose quantitative blood xcpt reagent strip Bere Durant MD Work Phone: Start: 04-17-2024 End: 04-17-2024 Culture bacterial quanttative colony count urine Rosalia Be DO Work Phone: Start: 04-17-2024 Antibody screen TOMÁS DICKEY Comment on above: Order Comment: HOLD. Specimen is valid for 3 days - nurse to verify valid specimen Performed By: #### L [id number] ####Nursing Scheduler: MELANI STEINBERG ([id number])[facility] ([facility])[address] [place] [address] Start: 04-17-2024 ABO and Rh group [Ty pe] in Blood by Confirmatory method Rosalia Be DO Work Phone: Start: 04-17-2024 Blood typing serologic abo Rosalia Be DO Work Phone: Start: 04-17-2024 End: 04-17-2024 Comprehensive metabolic panel Rosalia Be DO Work Phone: Start: 01-29-2024 Antibody screen Frank Botello MD Work Phone: Start: 01-29-2024 CBC panel - Blood by Automated count [facility] Provider Start: 01-29-2024 GONORRHEA/CHLAMYDIA NAAT [facility] Provider Start: 01-29-2024 HEP B SURF AG SCRN [facility] Provider Start: 01-29-2024 HIV 1 2 COMBO(AG/AB) ,WITH REFLEX TO DIFFERENTIATION [facility] Provider Start: 01-29-2024 RPR SCREEN Ccf Provid er Start: 01-29-2024 RUBELLA IGG AB [facility] Prov ider Start: 01-29-2024 Thyrotropin [Units/v olume] in Serum or Plasma [facility] Provider Start: 01-29-2024 TYPE + SCREEN (EXTERNAL LAB) [facility] Provider Start: 01-29-2024 VARICELLA ZOSTER IGG Cc f Provider Start: 04-29-2023 SARS-CoV-2 & FLU Ant igen (Rapid) Start: 04-17-2019 Radex elbow complete minimum 3 views Devyn R Jessica Work Phone: Start: 04-17-2019 Radex forearm 2 views D ylan R Jessica Work Phone: Start: 12-27-2015 Tonsillectomy TOMÁS BENITEZ MD Arm repair TOMÁS Monson Comment on above: Left stomach surgery as i nfant - unknown name TOMÁS DICKEY MD Transplanted skin (b radha structure) TOMÁS DICKEY MD Comment on above: Plan of Treatment Date Care Activity Detail Author Start: 09-30-2070 RSV Vaccine (1 - 1-dose 75+ series) RSV Vaccine (1 - 1-dose 75+ series) [facility] Start: 09-30-2045 Zoster Vaccines (1 of 2) Zoster Vaccines (1 of 2) [facility] Start: 05-12-2034 Urine microalbumin profile [facility] Start: 04-03-2030 DTaP/Tdap/Td Vaccines (10 - Td or Tdap) DTaP/Tdap/Td Vaccines (10 - Td or Tdap) [facility] Start: 04-03-2030 Urine microalbumin profile DTaP,Tdap,Td Vaccine (9 - Td or Tdap) [facility] Start: 01-23-2026 Screening for malignant neoplasm of cervix Cervical Cancer Screening [facility] Start: 04-20-2025 Diabetes mellitus screening Diabetes Screening [facility] Start: 10-16-2024 Depression Monitoring Depression Monitoring [facility] Start: 09-09-2024 End: 12-09-2024 C reactive protein [Mass/volume] in Serum or Plasma by High sensitivity method HIGH SENSITIVITY C-REACTIVE PROTEIN Lab Routine care and examination Exercise counseling Nutritional assessment Chronic hypertension with superimposed pre-eclampsia delivery Expected: 09/09/2024, Expires: 12/09/2024 [facility] Comment on above: Expected: 09/09/2024, Expires: Start: 09-09-2024 End: 12-09-2024 CBC panel - Blood by Automated count COMPLETE BLOOD COUNT Lab Routine care and examination Exercise counseling Nutritional assessment Chronic hypertension with superimposed pre-eclampsia delivery Expected: 09/09/2024, Expires: 12/09/2024 [facility] Work Phone: Comment on above: Expected: 09/09/2024, Expires: Start: 09-09-2024 End: 12-09-2024 Comprehensive metabolic 2000 panel - Serum or Plasma COMPREHENSIVE METABOLIC PANEL Lab Routine care and examination Exercise counseling Nutritional assessment Chronic hypertension with superimposed pre-eclampsia delivery Expected: 09/09/2024, Expires: 12/09/2024 [facility] Comment on above: Expected: 09/09/2024, Expires: Start: 09-09-2024 End: 12-09-2024 LIPID PANEL, NONFASTING LIPID PANEL, NONFASTING Lab Routine care and examination Exercise counseling Nutritional assessment Chronic hypertension with superimposed pre-eclampsia delivery Expected: 09/09/2024, Expires: 12/09/2024 [facility] Comment on above: Expected: 09/09/2024, Expires: Start: 09-09-2024 End: 12-09-2024 Natriuretic peptide.B prohormone N-Terminal [Mass/volume] in Serum or Plasma NT PRO BNP Lab Routine care and examination Exercise counseling Nutritional assessment Chronic hypertension with superimposed pre-eclampsia delivery Expected: 09/09/2024, Expires: 12/09/2024 [facility] Comment on above: Expected: 09/09/2024, Expires: Start: 09-09-2024 End: 09-09-2024 Patient encounter procedure 09/09/2024 2:00 PM EST Office Visit Cardiology [address] [place] [address] [place] [address] [id number] [facility] Cardiology Comment on above: [facility] Start: 09-09-2024 End: 12-09-2024 Thyrotropin [Units/volume] in Serum or Plasma THYROID STIMULATING HORMONE Lab Routine care and examination Exercise counseling Nutritional assessment Chronic hypertension with superimposed pre-eclampsia delivery Expected: 09/09/2024, Expires: 12/09/2024 [facility] Comment on above: Expected: 09/09/2024, Expires: Start: 09-09-2024 End: 12-09-2024 Thyroxine (T4) free [Mass/volume] in Serum or Plasma T4 FREE/FREE THYROXINE Lab Routine care and examination Exercise counseling Nutritional assessment Chronic hypertension with superimposed pre-eclampsia delivery Expected: 09/09/2024, Expires: 12/09/2024 [facility] Comment on above: Expected: 09/09/2024, Expires: Start: 07-15-2024 End: 07-15-2024 Patient encounter procedure 07/15/2024 2:00 PM EST Office Visit OB/Gynecology [address] [place] [address] Jocelyn Botello MD [address] [place] [address] PP / IUD insert OB/Gynecology Comment on above: PP / IUD insert Start: 06-17-2024 End: 06-17-2024 Patient encounter procedure 06/17/2024 11:40 AM EST Office Visit OB/Gynecology [address] [place] [address] Lincoln Patel MD [address] [place] [address] 06/02/24 Post OB/Gynecology Comment on above: 06/02/24 Post Start: 06-09-2024 End: 06-09-2024 Patient encounter procedure [facility] Comment on above: Growth+MFM Growth/MFM Start: 06-05-2024 End: 06-05-2024 Patient encounter procedure 06/05/2024 9:00 AM EST Routine Office Visit OB/Gynecology [address] [place] [address] Viraj Morales MD [address] [place] [address] nst only OB/Gynecology Comment on above: nst only Start: 06-02-2024 RSV Immunization aged 60 or older (1 - Risk 1-dose series) RSV Immunization aged 60 or older (1 - Risk 1-dose series) [facility] Start: 06-02-2024 RSV Vaccine (1 - Risk 1-dose series) RSV Vaccine (1 - Risk 1-dose series) [facility] Start: 06-02-2024 End: 06-02-2024 Patient encounter procedure 06/02/2024 9:00 AM EST Routine Office Visit Maternal Medicine [address] [place] [address] growth u/s [facility] Comment on above: growth u/s Start: 06-01-2024 End: 06-01-2024 Anesthesia consultation 06/01/2024 11:59 PM EST Anesthesia Event [facility] [address] [place] [address] Mal Bowser APRN.THROAT CUTTER [address] [place] [address] [facility] Start: 05-29-2024 End: 05-29-2024 Patient encounter procedure 05/29/2024 10:00 AM EST Routine Office Visit OB/Gynecology [address] [place] [address] Michele Garland MD [address] [place] [address] NST only OB/Gynecology Comment on above: NST only Start: 05-26-2024 End: 05-26-2024 Patient encounter procedure OB/Gynecology Comment on above: OB- Needs order for growth u/s & schedul e Nsts BPP Consult to [facility] Start: 05-25-2024 End: 05-25-2024 Patient encounter procedure 05/25/2024 12:00 PM EST [facility] [address] [facility] [address] [place] [address] Lashell Mccracken, [facility] [address] [place] [address] Consult, Ebsteins, neurofibromatosis [facility] Comment on above: Consult, Ebsteins, neurofibromatosis Start: 05-18-2024 End: 05-18-2024 ambulatory 05/18/2024 2:00 PM EST Procedure Pediatric Cardiology [address] [place], [place] [id number] Irving Castillo MD [address] [place], [place] [id number] echo Pediatric Cardiology Comment on above: echo Start: 05-18-2024 End: 05-26-2024 Comprehensive metabolic 2000 panel - Serum or Plasma [facility] Work Phone: Comment on above: Expected: 05/18/2024, Expires: 4 Start: 05-18-2024 End: 06-03-2024 Protein/Creatinine [Mass Ratio] in Urine [facility] Comment on above: Expected: 05/18/2024, Expires: 4 Start: 05-18-2024 End: 05-18-2024 Patient encounter procedure [facility]aternal [facility] Comment on above: Stone LAON per echo Start: 05-12-2024 End: 05-12-2024 Patient encounter procedure [facility] Comment on above: Anatomy Consult to [facility] JANELLE - u/s and [facility] co nsult first Start: 03-08-2024 COVID-19 Vaccine ( season) COVID-19 Vaccine ( season) [facility] Start: 03-08-2024 Covid-19 Vaccine ( season) Covid-19 Vaccine ( season) [facility] Start: 03-08-2024 Influenza vaccination Influenza Vaccine (#1) [facility] Start: 04-29-2023 [facility] Start: 07-17-2019 End: 07-17-2019 Office Visit 07/17/2019 Office Visit Orthopedic Surgery Jessica, Devyn Acosta MD [address] [facility] [address] [place] [address] [phone] [facility] Medical [facility] [place] Start: 03-08-2019 Influenza vaccination Flu vaccine (#1) [place], [place] Start: 09-30-2016 Cervical cancer screen Cervical cancer screen [place], [place] Start: 09-30-2016 Screening for malignant neoplasm of cervix [facility] Start: 09-30-2014 DTaP/Tdap/Td vaccine (1 - Tdap) DTaP/Tdap/Td vaccine (1 - Tdap) [place] Start: 09-30-2014 Pneumococcal vaccination Pneumococcal Vaccine (1 of 2 - PCV) [facility] Start: 09-30-2013 Annual PCP Team Chronic Disease Visit Annual PCP Team Chronic Disease Visit [facility] Start: 09-30-2013 Anxiety Screening Anxiety Screening [facility] Start: 09-30-2013 Depression Screening Depression Screening [facility] Start: 09-30-2013 Hepatitis C screening Hepatitis C Screening [facility] Start: 09-30-2013 HIV screening HIV Screening [facility] Start: 09-30-2013 Spirometry Spirometry [facility] Start: 2011 Chlamydia screen Chlamydia screen [place], [place] Start: 09-30-2010 HIV screen HIV screen [place], [place] Start: 09-30-2010 HPV vaccine (1 - Female 3-dose series) HPV vaccine (1 - Female 3-dose series) [place] Start: 09-30-2008 Varicella Vaccine (1 of 2 - 13+ 2-dose series) Varicella Vaccine (1 of 2 - 13+ 2-dose series) [place] Start: 09-30-2001 Pneumococcal 0-64 years Vaccine (1 of 1 - PPSV23) Pneumococcal 0-64 years Vaccine (1 of 1 - PPSV23) [place] Start: 09-30-2001 Pneumococcal Vaccine: Pediatrics (0 to 5 Years) and At-Risk Patients (6 to 64 Years) (1 of 2 - PCV) Pneumococcal Vaccine: Pediatrics (0 to 5 Years) and At-Risk Patients (6 to 64 Years) (1 of 2 - PCV) [facility] Start: 1995 HIV screening HIV Screening [facility] Start: 1995 Lipid panel Lipid Panel [facility] End: 11-21-2024 BIOPHYSICAL PROFILE US [facility] BIOPHYSICAL PROFILE US [facility] Anc Imaging Routine Arnold-Chiari malformation (HCC) Supervision of other high risk pregnancies, second trimester Once per week for 10 Occurrences starting 05/25/2024 until 11/21/2024 [facility] Work Phone: Comment on above: Once per week for 10 Occurrences startin g 05/25/2024 until 11/21/2024 End: 11-22-2024 BIOPHYSICAL PROFILE US I BIOPHYSICAL PROFILE [facility] Anc Imaging Routine Chronic hypertension affecting 31 weeks gestation of Supervision of other high risk pregnancies, second trimester Once per week for 10 Occurrences starting 05/26/2024 until 11/22/2024 [facility] Comment on above: Once per week for 10 Occurrences startin g 05/26/2024 until 11/22/2024 delivery only SECTION A K OB ECG COMPLETE ECG COMPLETE ECG 09/09/2024 1:53 PM EST [facility] End: 05-12-2025 ECHO ECHO Cardiology Routine Suspected anomaly, antepartum, single or unspecified fetus 1 Occurrences starting 05/12/2024 until 05/12/2025 [facility] Work Phone: Comment on above: 1 Occurrences starting 05/12/2024 until 05/12/2025 End: 05-18-2025 ECHO ECHO Cardiology Routine abnormality affecting management of mother, single or unspecified fetus 1 Occurrences starting 05/18/2024 until 05/18/2025 [facility] Work Phone: Comment on above: 1 Occurrences starting 05/18/2024 until 05/18/2025 End: 09-09-2025 Echocardiography ECHO Cardiology Routine Chronic hypertension with superimposed pre-eclampsia 1 Occurrences starting 09/09/2024 until 09/09/2025 [facility] Comment on above: 1 Occurrences starting 09/09/2024 until 09/09/2025 End: 07-28-2024 nonstress test NON-STRESS TEST Procedures Routine Chronic hypertension affecting Once per week for 99 Occurrences starting 05/26/2024 until 07/28/2024 [facility] Comment on above: Once per week for 99 Occurrences startin g 05/26/2024 until 07/28/2024 Insertion intrauteri ne device iud INSERT INTRAUTERINE DEVICE Procedures Routine Encounter for IUD insertion 2 weeks follow-up Ordered: 06/17/2024 [facility] Work Phone: Comment on above: Ordered: 06/17/2024 Insertion intrauteri ne device iud INSERT INTRAUTERINE DEVICE Procedures Routine Encounter for IUD insertion Ordered: 07/15/2024 [facility] Work Phone: Comment on above: Ordered: 07/15/2024 End: 04-21-2024 Metanephrines Plasma [facility] Work Phone: Comment on above: STAT (Lab) for 1 Occurrences starting until 04/21/2024 End: 04-24-2025 OBSTETRIC ULTRASOUND WHI OBSTETRIC ULTRASOUND [facility] Anc Imaging Routine 26 weeks gestation of 1 Occurrences starting 04/29/2024 until 04/24/2025 [facility] Work Phone: Comment on above: 1 Occurrences starting 04/29/2024 until 04/24/2025 End: 07-28-2024 OBSTETRIC ULTRASOUND WHI OBSTETRIC ULTRASOUND [facility]I Anc Imaging Routine Chronic hypertension affecting Once per month for 10 Occurrences starting 05/26/2024 until 07/28/2024 [facility] Work Phone: Comment on above: Once per month for 10 Occurrences starti ng 05/26/2024 until 07/28/2024 Patient Education Coronavirus Pau frazier 2019 (COVID-19): Overview [facility] Work Phone: Patient referral [facility] Work Phone: URINE OB DIP B/O URINE OB DIP B/ O Lab Routine Chronic hypertension affecting 31 weeks gestation of Supervision of other high risk pregnancies, second trimester Ordered: 05/26/2024 [facility] Comment on above: Ordered: 05/26/2024 Immunizations Immunization Date Immunization Notes Care Provider Diane swann 05-12-2024 influenza, injectabl e, quadrivalent, preservative free Dr. Tomás Dickey MD Work Phone: [facility] 05-12-2024 influenza, seasonal, injectable Viraj Morales MD Work Phone: [facility] 05-12-2024 tetanus toxoid, redu shara diphtheria toxoid, and acellular pertussis vaccine, adsorbed Viraj Morales MD Work Phone: [facility] 07-23-2023 influenza, injectabl e, quadrivalent, contains preservative; Translations: [Fluarix PF Quadrivalent ] TOMÁS DICKEY MD [facility] 07-23-2023 influenza, injectabl e, quadrivalent, preservative free Viraj Morales MD Work Phone: [facility] 07-23-2023 influenza virus vaccine, unspecified formulation Alice Armando MD Work Phone: [facility] 04-03-2020 tetanus toxoid, redu shara diphtheria toxoid, and acellular pertussis vaccine, adsorbed KVNG MCPHERSON PA-C [facility] 08-08-2019 tetanus toxoid, redu shara diphtheria toxoid, and acellular pertussis vaccine, adsorbed; Translations: [Boostrix (Tdap)] TOMÁS DICKEY MD [facility] 02-12-2017 tetanus and diphther ia toxoids, adsorbed, preservative free, for adult use (5 Lf of tetanus toxoid and 2 Lf of diphtheria toxoid) TOMÁS DICKEY MD [facility] 04-30-2014 influenza virus vaccine, live, attenuated, for intranasal use Viraj Morales MD Work Phone: [facility] 04-30-2014 influenza virus vaccine, unspecified formulation KVNG MCPHERSON PA-C [facility] 03-10-2009 human papilloma viru s vaccine, quadrivalent Michell Avalos PRODUCTION DRILLING MACHINE OPERATOR.CNM Work Phone: [facility] 03-10-2009 Human Papillomavirus Nils DICKEY MD [facility] 12-10-2007 human papilloma viru s vaccine, quadrivalent Michell Avalos PRODUCTION DRILLING MACHINE OPERATOR.CNM Work Phone: [facility] Work Phone: 12-10-2007 Human Papillomavirus Nils DICKEY MD [facility] 12-10-2007 varicella virus vaccine GRISELDA DICKEY MD [facility] 02-04-2007 human papilloma viru s vaccine, quadrivalent Michell Avalos PRODUCTION DRILLING MACHINE OPERATOR.CNM Work Phone: [facility] 02-04-2007 Human Papillomavirus Nils DICKEY MD [facility] 10-17-2006 meningococcal polysaccharide (groups A, C, Y and W-135) diphtheria toxoid conjugate vaccine (MCV4P) TOMÁS DICKEY MD [facility] 10-17-2006 Meningococcal, MCV4, unspecified conjugate formulation(groups A, C, Y and W-135) Michell Avalos PRODUCTION DRILLING MACHINE OPERATOR.CNM Work Phone: [facility] 10-17-2006 tetanus and diphther ia toxoids, adsorbed, preservative free, for adult use (5 Lf of tetanus toxoid and 2 Lf of diphtheria toxoid) TOMÁS DICKEY MD [facility] 10-17-2006 tetanus toxoid, redu shara diphtheria toxoid, and acellular pertussis vaccine, adsorbed Michell Avalos APRN.CNM Work Phone: [facility] 07-04-2004 influenza virus vaccine, unspecified formulation KVNG MCPHERSON PA-C [facility] 07-04-2004 influenza virus vaccine, whole virus Michell Avalos APRN.CNM Work Phone: [facility] 10-10-2000 diphtheria, tetanus toxoids and acellular pertussis vaccine TOMÁS DICKEY MD [facility] 10-10-2000 measles, mumps and rubella virus vaccine Michell Avalos APRN.CNM Work Phone: [facility] 10-10-2000 measles/mumps/rubell a virus vaccine TOMÁS DICKEY MD [facility] 10-10-2000 poliovirus vaccine, inactivated TOMÁS DICKEY MD [facility] 11-24-1999 diphtheria, tetanus toxoids and acellular pertussis vaccine TOMÁS DICKEY MD [facility] 11-24-1999 haemophilus influenz ae type b vaccine, HbOC conjugate Michell Avalos APRN.CNM Work Phone: [facility] 11-24-1999 haemophilus influenz ae type b vaccine, PRP-T conjugate TOMÁS DICKEY MD [facility] 11-24-1999 poliovirus vaccine, inactivated TOMÁS DICKEY MD [facility] 10-12-1998 diphtheria, tetanus toxoids and acellular pertussis vaccine TOMÁS DICKEY MD [facility] 10-12-1998 haemophilus influenz ae type b vaccine, HbOC conjugate Michell Robbie MORSEN.CNM Work Phone: [facility] 10-12-1998 haemophilus influenz ae type b vaccine, PRP-T conjugate TOMÁS DICKEY MD [facility] 10-12-1998 hepatitis B vaccine, pediatric or pediatric/adolescent dosage Michell Robbie MORSEN.CNM Work Phone: [facility] 10-12-1998 hepatitis B vaccine, unspecified formulation TOMÁS DICKEY MD [facility] 04-27-1998 varicella virus vaccine GRISELDA DICKEY MD [facility] 07-19-1997 diphtheria, tetanus toxoids and acellular pertussis vaccine TOMÁS DICKEY MD [facility] 07-19-1997 hepatitis B vaccine, pediatric or pediatric/adolescent dosage Michell Avalos APRN.CNM Work Phone: [facility] 07-19-1997 hepatitis B vaccine, unspecified formulation TOMÁS DICKEY MD [facility] 07-19-1997 poliovirus vaccine, inactivated OTMÁS DICKEY MD [facility] 07-19-1997 trivalent poliovirus vaccine, live, oral Michell Avalos APRN.CNM Work Phone: [facility] 03-04-1997 diphtheria, tetanus toxoids and acellular pertussis vaccine TOMÁS DICKEY MD [facility] 03-04-1997 haemophilus influenz ae type b vaccine, HbOC conjugate Michell Avalos APRN.CNM Work Phone: [facility] 03-04-1997 haemophilus influenz ae type b vaccine, PRP-T conjugate TOMÁS DICKEY MD [facility] 03-04-1997 measles, mumps and rubella virus vaccine Michell Avalos APRN.CNM Work Phone: [facility] 03-04-1997 measles/mumps/rubell a virus vaccine TOMÁS DICKEY MD [facility] 03-04-1997 poliovirus vaccine, inactivated TOMÁS DICKEY MD [facility] 1995 hepatitis B vaccine, pediatric or pediatric/adolescent dosage Michell Avalos APRN.CNM Work Phone: [facility] 1995 hepatitis B vaccine, unspecified formulation TOMÁS DICKEY MD [facility] NEGATED: Highlighted row has not occurred!04-18-2024 influenza, injectable, madin kush canine kidney, preservative free Alcie Armando MD Work Phone: [facility] Comment on above: Deferred: Patient Re fused Payers Date Payer Category Payer Self-pay [id number] 2019 Unknown [facility] xxxxxxxxx 2019-Present [phone] [place] [id number] xxxxxxxxx [id number] 2018 Medicaid [id number] 2016 Medicaid [id number] 1995 Unknown [id number] [id number] 1995 Unknown [id number] [id number] 1995 Unknown [id number] 2.16.840.1.810937.3.579.2.627 1995 Unknown [id number] 2.16.840.1.472879.3.579.2.62 1995 Unknown [id number] 2.16.840.1.398279.3.579.2.627 1995 Unknown [id number] 2.16840.1.022864.3.579.2.627 1995 Unknown [id number] 2.16840.1.847897.3.579.2.627 1995 Unknown [id number] 2.16840.1.829980.3.579.2. 1995 Unknown [id number] 2.16.840.1.764020.3.579.2.627 1995 Unknown [id number] 2.16840.1.515872.3.579.2.627 1995 Unknown [id number] 2.16840.1.299373.3.579.2.627 1995 Unknown [id number] 2.16.840.1.230740.3.579.2. 1995 Unknown [id number] 2.16840.1.603351.3.579.2.627 1995 Unknown [id number] 2.16.840.1.887691.3.579.2.627 1995 Unknown [id number] 2.16.840.1.519450.3.579.2.479 1995 Unknown [id number] 2.16.840.1.337467.3.579.2.651 Unknown [id number] 2.16.840.1.801953.3.579.2.462 Unknown [id number] 2.16.840.1.255819.3.579.2.462 Unknown [id number] 2.16.840.1.246265.3.579.2.462 Unknown [id number] 2.16.840.1.030880.3.579.2.462 Unknown [id number] [id number]2 Unknown [id number] [id number] Social History Date Type Detail Facility Start: 04-17-2019 End: 04-29-2023 Tobacco smoking status NHIS Current every day smoker [place], [place] Start: 1995 Sex Assigned At Not on file [place] Start: 08-08-2019 End: 10-12-2022 Heavy tobacco smoker (finding) [facility] Start: 1995 Sex Assigned At Female [facility] Start: 07-11-2021 End: 04-18-2022 Light tobacco smoker (finding) [facility] Start: 05-19-2020 End: 04-29-2023 Tobacco smoking status TXIS Unknown if ever smoked [facility] Start: 03-22-[address] [facility] Start: 03-22-[address] [facility] Start: 03-22-2019 - [facility] Start: 04-25-[address] [facility] Tobacco Nicotine Use: Va ping Product in Last 90 Days, daily tobacco or smoke exposure. Ready to change: Yes. Smoking Cessation Information Smoking cessation information provided. [facility] Start: 04-17-2024 End: 05-12-2024 History of Social function [facility] Start: 04-17-2024 End: 05-12-2024 [id number] Health Literacy [facility] How often do you nee d to have someone help you when you read instructions, pamphlets, or other written material from your doctor or pharmacy [SILS] Always [facility] Has the [employer], or [employer] threatened to shut off services in your home in past 12Mo No [facility] Are you now , , , , never or living with a partner? Living with partner [facility] How often to you hav e a drink containing alcohol? Never [facility] Do you feel stress - tense, restless, nervous, or anxious, or unable to sleep at night because your mind is troubled all the time - these days [OSQ] Only a little [facility] (I/We) worried wheth er (my/our) food would run out before (I/we) got money to buy more. Never true [facility] [employer] At any time in the p ast 12 months, were you homeless or living in intermediate [including now]? Yes [facility] Start: [facility]-05-2023 [facility] Start: 04-24-2024 Tobacco smoking stat NHIS Ex-smoker [facility] History of tobacco use Current smoker [facility] History of tobacco use Cigarette Smoker [facility] History of tobacco use Passive smoker [facility] Start: 04-24-2024 End: 09-09-2024 Tobacco use and exposure Smokeless tobacco non-user [facility] Start: 04-28-2024 End: 09-09-2024 Alcoholic beverage intake Current non-drinker of alcohol (finding) [facility] Start: 04-24-2024 Tobacco Comment mom and dad sm emelyn outside [facility] Start: 09-09-2024 Tobacco [facility] O[facility] Start: 12-31-2018 Sex Female (finding) [facility] Goals Date Patient Goal Desired Activity /State Personal health goal Functional Status Date Assessment Result Facility 06-08-2024 Are you deaf, or do you have serious difficulty hearing No 06/08/2024 11:00 AM Ирина Cedillo RN No [facility] 06-08-2024 Are you blind, or do you have serious difficulty seeing, even when wearing glasses No 06/08/2024 11:00 AM Ирина Cedillo RN No [facility] 06-08-2024 Do you have serious difficulty walking or climbing stairs No 06/08/2024 11:00 AM Ирина Cedillo RN No [facility] 06-08-2024 Do you have difficul ty dressing or bathing No 06/08/2024 11:00 AM Ирина Cedillo RN No [facility] 06-08-2024 Because of a physica l, mental, or emotional condition, do you have difficulty doing errands alone such as visiting a physician's office or shopping No 06/08/2024 11:00 AM Ирина Cedillo RN No [facility] 05-30-2024 Functional Status 7am-7pm [facility] 12-21-2023 Functional Status Up ad jennifer [facility] 12-21-2023 Functional Status Ambulation in [place], Ambulation in Room [facility] Mental Status Date Assessment Result Facility 06-08-2024 Because of a physica l, mental, or emotional condition, do you have serious difficulty concentrating, remembering, or making decisions No 06/08/2024 11:00 AM Ирина Cedillo RN [facility] 05-30-2024 Mental Status Oriented x [address] [facility] 05-30-2024 Mental Status Orientation Asse ssment Oriented x 4 [facility] 12-21-2023 Mental Status Orientation Oriented x 4 [facility] 12-21-[address] [facility] 04-29-2023 Cognitive function Level Of Cons ciousness Awake;Alert;Appropriate;Fol lows Commands [facility] Work Phone: Clinical Notes 03-15-2022 to 02-12-2025 Patient InstructionsBraden Christopher MD - 09/09/2024 2:00 PM ESTPatient InstructionsJocelyn Botello MD - 07/15/2024 1:52 PM Kayla APRN. KofiCNM - 06/18/2024 3:13 PM EST Note Date & Type Note Facility 02-12-2025 Radiology Diagnostic study note [facility] Imaging Services [address] [place], [place] [address] Sinus/Facial Bone MR#: [id number] Acct: [id number] Name: PABLO ALARCON Rep #: [id number] : 1995 F 29 From: Davian Orlando MD PCP: Dr. Tomás Dickey MD Status: REG CLI Study:Sinus/Facial Bone Date of Exam: Exam# [id number] Ordering Dr: Isaiah Kumar MD PROCEDURE: SINUS/FACIAL BONE 02/11/2025 REASON FOR EXAM: CHRONIC SINUSITIS TECHNIQUE: SINUS/FACIAL BONE Coronal and Sagittal reconstruction series were provided. One or more dose reduction techniques were used (e.g., Automated exposure control, adjustment of the mA and/or kV according to patient size, use of iterative reconstruction technique). RADIATION DOSE SUMMARY: CTDlvol: 28.14 mGy DLP: 714.53 mGycm COMPARISON: None provided. CT/Sinus/Facial Bone IMPRESSION: Periodontal disease is seen,, also with concern for loose tooth and/or periapical abscess in the right mandible. Complete opacification of the right maxillary sinus is seen, with destruction ofthe medial maxillary wall, and extending into the nose and right ethmoid air cells. 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 Complete opacification of the right frontal sinuses also seen, perhaps due to extension of the same process. Left ethmoid air cells, sphenoid sinuses, and left maxillary sinus appear essentially clear. Mastoid air cells appear clear. The left ostium appears patent. No involvement of the orbits is seen at this time. Reading Location: [facility] CC: Dr. Isaiah Kumar MD; Dr. Tomás Dickey MD ~ Building Components Designer: [facility] 12-09-2024 Note . MICRO - Microbiology PROCEDURE: Urine Culture [*1] SOURCE: Urine, Clean Catch BODY SITE: COLLECTED DATE/TIME: 12/04/2024 16:17 EDT RECEIVED DATE/TIME: 12/07/2024 19:56 EDT START DATE/TIME: 12/07/2024 19:56 EDT FREE TEXT SOURCE: FINAL REPORTS Final Report [] Verified Date/Time/Personnel: 12/09/2024 07:31 EDT >100,000 cfu/ml Mixed growth consistent with normal urogenital chepe. PRELIMINARY REPORTS Preliminary Report [] Verified Date/Time/Personnel: 12/08/2024 08:01 EDT No growth to date Preliminary Report [] Verified Date/Time/Personnel: 12/07/2024 20:59 EDT Specimen received in lab. Performing Locations *1: This test was performed at: [facility], [address] [place] [address], [facility]- , [facility] 09-09-2024 Instructions Braden Christopher MD - 09/09/2024 2:09 PM EST Images from the original note were not included. - Complete non-fasting bloodwork when able (should be at least 3mos ) - Please keep a log of your blood pressures twice daily for the next week and send it back to Dr. Christopher through [facility]. - Schedule echocardiogram - Aim for at least 150mins of moderate aerobic activity OR 60mins of vigorous activity weekly (see table below) - Consider reading The Whole Heart Solution by Rios Roman, The Spectrum by Attila Bui or Whole Body Reset by Mick Smith (for 50yo+). Watch the documentaries [place] and That Sugar Film to learn more about plant-based/low carbohydrate eating. - see your PCP in 6-12months. - For more information on healthy lifestyle and diet visit [email or web address]. LOW SALT DIET Purpose: Sodium controlled diets are designed to avoid excessive sodium retention Use: The low salt diet is used for persons with diseases that affect fluid balance or where a decrease in body fluid volume will relieve symptoms of the disease. Conditions where control may be indicated are severe heart failure, impaired liver function, high blood pressure, and acute and chronic kidney disease. Here are the following guidelines to help reduce the amount of sodium in your diet. Take the salt shaker off the table and omit salt from recipes and food preparation. Cook without salt or with only small amounts of added salt. Learn to enjoy the flavors of unsalted foods Try flavoring foods with herbs, spices, and lemon juice. Read food labels carefully to determine the amounts of sodium. Learn to recognize ingredients that contain sodium, Salk, soy sauce, salt brine or any ingredient with sodium (such as monosodium glutamate) or baking soda (sodium bicarbonate) as part of its name contains sodium. Rinsing canned vegetable and fish will remove much of the salt. Season or marinate meat, poultry, and fish ahead of time with onion, garlic and your favorite herbs before cooking to bring out the flavor. Some terms describing sodium content: lite, light, lightly salted, low sodium, reduced sodium, sodium free, unsalted, no salt added, without salt added, very low sodium. Use lower sodium products, when available, to repace those with higher sodium content. Use simple techniques like saving chicken broth from a chicken you cook at home rather than buying a canned, powdered or bouillon cube broth. When dining out words that signal high sodium include: smoked, barbequed, pickled, broth, soy sauce, teriyaki, creole sauce, marinated, cocktail sauce, tomato base, parmesan, and mustard sauce. FOODS RECOMMENDED FOODS TO AVOID MILK & DAIRY 2-3 servings each day All milk and milk products, except buttermilk Cream Cheese Low sodium cheeses Yogurt MILK & DAIRY Buttermilk Cheese ([place], Joe, Cheddar, Blue, Gouda, Irish, Velveeta) Cheese spreads FRUITS & VEGETABLES 5-9 servings each day Fresh or frozen vegetables No added salt or low salt canned vegetables No added salt tomato products Salt-free vegetable juices All fruit and fruit juices FRUITS & VEGETABLES Canned vegetables Frozen vegetables with seasoning and sauces Pickle relish, sweet or sour Pickled vegetables Pickles and others prepared in brine Sauerkraut Vegetable or tomato juices, canned or bottled Pickled fruits BREADS & GRAINS 6-11 servings each day Bread and rolls Dry and cooked cereals Pancakes, waffles Potatoes Salt-free potato chips Salt-free pretzels/snack chips Rice, barley, noodles, spaghetti, macaroni and other pastas Tortillas Unsalted crackers Unsalted popcorn BREADS & GRAINS Breads and rolls with salted tops Instant hot cereals Instant food products (e.g., cereals, pasta mixes, potatoes, rice, etc.) such as boxed mixes like rice, scalloped potatoes, macaroni and cheese Popcorn, prepackaged microwave Salted popcorn Saltines, potato chips, pretzels, snack chips, pork rinds MEATS & MEAT SUBSTITUES 2-3 servings or total of 6 oz daily All fresh and fresh frozen meats (poultry, fish, shellfish, beef, pork, amor) Canned unsalted tuna fish Dried peas and beans Eggs Low sodium peanut butter Unsalted nuts Unsalted soybeans and other meat substitutes Soups Homemade soups, made with allowed ingredients Unsalted broth or bouillon Low sodium commercial soup MEATS & MEAT SUBSTITUTES Cured, salted, canned or smoked meats, poultry, or fish such as corned beef, ham, chan, luncheon meats, beef jerky, bologna, pork rinds, hogmaws, ribs, chitterlings, frankfurter, sausage, chorizo, canned fish like tuna, sardines, mackerel, anchovies, caviar, salkted cod, harp, sardines, lox, dry fish, and kippered salmon Dried fish, Assorted (e.g., dried shrimp) Frozen pizza Frozen prepared meat entree dinners such as pot pies, macaroni and cheese Kosher meats Pickled meats Regular peanut butter Salted nuts Soups Broth and soups with added salt Regular canned soups Regular instant soups Regular bouillon cubes FATS & SNACKS (use sparingly) Margarine, vegetable oils and lard Unsalted gravies Unsalted butter Mayonnaise, sour cream Salt-free salad dressings Homemade salad dressings, made without added salt Whipping cream Sugar, honey, jelly, jam, syrup, candies Popsicles, fruit ice, sherbet, fruit sorbet, marshmallows Homemade cookies, pies, cakes made with allowed ingredients FATS & SNACKS Butter Commercial salad dressings Cheese-based dressings Chan fat, fatback, salt pork Salad dressing mixes Olives, green and black Prepared frozen cream pies and cheese cake Instant pudding mixes Commercially prepared baked goods (cakes, cookies, pie) Salted nuts MISC. Allspice, mustard (dry) Brimley extract Basil Titus leaves Capello's Vietnamese style seasoning Enterprise seeds Chives cider vinegar Cinnamon Canchola powder Sasha crystal Dill Garlic powder Mark Herbal seasonings: Harley's seasoned pepper Harley's seasoning (no salt) Lemon juice Mace Mrs. Dash Nutmeg Onion powder Paprika Parsley Parsley patch Peppermint extract Pimento Amparo Rory Salt free seasoning blends Savory Sodium-free baking powder Thyme Turmeric Vinegar Braxton's all-purpose seasonings Labeled no salt Products, assorted (e.g., cage paste, and sauces, oriental dried plums and other dried seeds, vegetables and fruits (lemon & amrk) MISC. Accent Marilia-seltzer All commercially prepared and convenience foods Such as TV dinners, box mixes, canned entrees, hamburger helper, meat pies, Nigerien dinners, pizza, shake'n'bake mixes BBQ sauce Celery salt [place]aha sauce Garlic salt Horseradish Kitchen bouquet Lemon pepper Marinade sauce Meat tenderizers Monosodium glutamate (MSG) Onion salt Alliance Party spreads Regular ketchup Relish Salad dressings Salt Seasoning salts Sodium benzoate Sodium caseinate Sodium citrate Sodium nitrate Sodium phosphate Sodium propionate Sodium saccharin Soy sauce Steak sauce Ryan sauce Teriyaki sauce Worcestershire sauce PRACTICAL SUGGESTIONS TO INCORPORATE MEDITERRANEAN DIET CATEGORY CONSUME AVOID Fruits and vegetables Wide variety of whole fruits and vegetables; try for at least 7-10 servings per day Vegetables prepared in butter or cream sauce High-fiber breads, cereals, and pasta Whole grain bread and cereal, bran, brown rice Sweets, white bread, biscuits, breadsticks, and other refined carbohydrates Protein that is low in saturated fat Lean cuts of meat (fat trimmed) or poultry (no skin); low-fat dairy foods (skim mild, yogurt) Chan, sausage, other processed or high-fat meat, milk or cheese that is not low-fat, ice cream Fish or other source of omega-3 fatty acids, at least 1 or 2 times per week [place], trout, harp, water-packed tuna, mackerel (or fish oil supplement); flaxseed, spinach, walnuts Fried fish ( except when gutiérrez fried in olive oil) Healthy oils for cooking, salad dressing, and other uses Extra-virgin olive oil, canola oil, flaxseed oil (high-oleic sunflower or safflower oil may also be an option) [place]-6 oils, (corn, sunflower, safflower, soybean, peanut) Peas, beans, legumes, and nuts Soybeans, lentils, or any kind of peas, beans, or legumes; tree nuts (eg. Almonds,pecans, walnuts, [place] nuts) Heavily salted or honey-roasted nuts; stale or rancid nuts Alcohol One 5-oz glass of wine, a 12-oz beer, or a 1.5oz drink containing distilled spirits with the evening meal Limit to no more than 1 drink daily for women, 2 drinks daily for men Fat Emphasize whole, natural foods as above; look for 'trans-fatty acid -free margarine and snack foods Fast food, fried food, margarine, chips, crackers, baked goods, doughnuts, any processed food made with partially hydrogenated oil PHYSICAL ACTIVITY GUIDE: [facility] Food Pantries Affiliated with the [facility] [employer] [facility] Hours: Saturday-Saturday 9-12 and 1-3 Location: [facility]: Room [address] Gavino [place] [id number] Contact: [facility] [employer] Hours: Saturday of the month starting at 11am, first come first served Location: Heather Beckford, Parking [address] [address] [place] [id number] Contact: Kelly Nagel [phone] or Katie Rossi [phone] [facility] Hours: Location: [facility] [address] Contact: [facility] Support Groups [facility] Day: Tuesdays Time: 1-2:30 p.m. To register, call [phone]. [facility] (across from [facility]) Days: Tuesdays and Fridays Time: 11 a.m. to 12:30 p.m. To register, call [phone]. [facility] Day: Time: 10 to 11:30 a.m. By appointment only, to schedule call [phone]. Laurie Noble (Support for black mothers and families) Day: Wednesdays Times: 10 to 11 a.m. (virtual and in-person options) and 6 to 7 p.m. (virtual only) To register, call [phone]. [facility] Day: Wednesdays Times: 1:30-3:30 p.m. To register, call [phone]. You can also schedule an appointment with a community integration specialist for questions, concerns, or difficulty [phone] You can also see Merly Ku Call [phone] to schedule Community Resources [employer] [facility] Hours: Partners with many locations, hours dependent on location Contact: [email or web address] Womankind: Baby items (Diapers, clothing, etc) Hours: Saturday - 10 am - 4 pm; Saturday 10 am - 2 pm Email: [email or web address] [email or web address] House: Baby clothes up to size 2T, diapers, blankets, strollers, care seats, and cribs Address: [address] [place] [address] Website: kapturem.Heaven[employer] [facility] Diabetes Prevention Program https://www.ymca.org/what-we-do/ healthy-living/fitness/diabetes- prevention [facility] Step Forward Address: [address] [address] Website: https://www.stepforwardtoday.org [facility] [employer] Address: [address] [facility] [place] [address] Website: https://www.birthrightlake.Heavenly Foods [facility] Address: [address] [place], [place] [address] Website: https://hopewellpreSlack / with Possibilities (Diapers, clothing, and formula) Making Opportunities Matter 13 week program Hours: Saturday - Saturday 9-5 Location: [address] [place] [address] Website: Penelope's PurseposAssurity Group [facility] Locus [facility] Address: [address] [place] [address] Website: https://www.Arecont Vision.or g/ Family Care Boot Camp for New Dads, Sibling Preparation, Grandparent preparation, Understanding your , Baby Basics Multiple [facility] locations Contact: Ccf.org/babyclasses Depression http://www.aircraft engine mechanic supervisor.org/acnm/file s/ccLibraryFiles/Filename/912278 812081/[email or web address].pdf [facility] They also have many other locations : [place], [place], [place] https://[email or web address].com/location s/[facility] [address] [facility] [address] [place] [address] Support Groups: Resilient Mamas - Support Group [place] [facility] Services and Saturday of each month 6:30pm to 8:30pm [facility].org The POEM support group at [facility] [place] Every Saturday 7-8:30PM [phone] www.poemonline.org Online support meetings PSI https://www..net/get-h elp/zra-zbmomw-cboefgf-meetings/ Mobile Crisis # [phone] Relaxation Exercises: www.[facility].org/relax Crisis text line text the word HOME to [id number] [facility] (specializes in trauma) https://Aito BV/servic es/edfgn-vh-mkplsqqszu/ -/ documented in this encounter [facility] 09-09-2024 History of Presen t illness Narrative Images from the original note were not included. [facility] Department of Cardiology [address] [place] [id number] (office) [phone] (fax) 09/09/2024 This note was written using medical terminology and is intended to be used for medical purposes by other health adult care manager Patient presents with: Care HPI: Ms. Alarcon is a 28 year old female with below PMH who is referred for a Heart visit for chronic hypertension with DEBBIE. She was admitted at 31 close for for chronic hypertension was treated with IV labetalol and started on magnesium. She met criteria for preeclampsia and was transferred to [facility]. At 32 weeks she developed chest pain and hypoxia. A chest x-ray showed pulmonary edema she was treated with IV Lasix and induced. She proceed with a due to distress. her blood pressure normalized with nifedipine 60 mg twice daily. She ran out of the medications and has not been taking them. This was her second . She did not have issues with preeclampsia or diabetes in her first . She is not sure if she wants future pregnancies. She currently has a mirena IUD for prophylaxis. She is following with a counselor for mental health. Delivery Date:06/02/2024 Weeks at Delivery:32 + 0 Mode of Delivery:C. Section ?:yes On aspirin for PEC prevention during ?: No Discharged on blood pressure meds?:yes Discharged on diabetes meds?:No Cardiology: The review of symptoms was negative for chest pain, shortness of breath, orthopnea, paroxysmal nocturnal dyspnea, palpitation, edema General ROS: Otherwise 14 systems ROS is negative except as stated above. PAST MEDICAL HISTORY Diagnosis Date Adjustment disorder Brain tumor (HCC) optic glioma Chronic hypertension affecting 04/24/2024 Taking Labetalol 200mg q12h and Nifedipine XL 60mg twice daily (up titrated [facility] admission 04/17-04/23) Secondary HTN work up on admission unremarkable, no evidence superimposed preeclampsia Growth US every 4 wk starting at 32wk Twice weekly testing at 30 weeks IOL 36-37w, would favor later /early term given hospitalization for exacerbation third trimester (delivery recommended [facility]) Chronic hypertension with superimposed pre-eclampsia 05/30/2024 Admitted from OSH with concerns for SIPEw/o exacerbation vs. 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 limb movement does not inerfere with sleep Scoliosis Seizure (HCC) Visual field constriction of right eye PAST SURGICAL HISTORY Procedure Laterality Date BOTOX INJECTION For migraines every 3 months SECTION HX 06/02/2024 pyloric stenosis 12/1995 UNLISTED PROCEDURE HUMERUS/ELBOW left elbow re-construction x 3 Current Outpatient Medications: levonorgestrel (MIRENA) 21 mcg/24hr (up to 8 yrs) 52 mg IUD, 1 Each by INTRAUTERINE route as directed., Disp: 1 Each, Rfl: 0 escitalopram oxalate (LEXAPRO) 10 mg tablet, Take 1 tablet by mouth once daily., Disp: 30 tablet, Rfl: 3 labetalol (TRANDATE) 200 mg tablet, Take 4 tablets by mouth every 8 hours., Disp: 1080 tablet, Rfl: 0 NIFEdipine ER (PROCARDIA XL) 60 mg 24 hr tablet, Take 1 tablet by mouth two times a day., Disp: 180 tablet, Rfl: 0 folic acid 1 mg tablet, Take 3 tablets by mouth once daily., Disp: 90 tablet, Rfl: 5 vit/iron fum/folic ac (RIGHT STEP VITAMINS ORAL), Take by mouth. Gummy, Disp: , Rfl: levETIRAcetam (KEPPRA) 500 mg tablet, Take 1,000 mg by mouth two times a day., Disp: , Rfl: fluticasone (FLONASE) 50 mcg/actuation nasal spray, Use 1 [place] in each nostril once daily., Disp: , Rfl: ALLERGIES Allergen Reactions Dextroamphetamine Mental Status Change Per patient - hallucinations Gabapentin Rash Seasonal Allergies Cough AVAILABLE LABS, EKGS, CARDIAC TESTING/PROCEDURES, FAMILY HISTORY AND SOCIAL HISTORY WERE REVIEWED AND UPDATED IN [facility]. ECG 09/09/2024 Normal Sinus Rhythm Normal ECG ECG 06/02/2024 LABORATORY TESTS: CBC: WBC HGB PLT 23.24 9.1 253 CHEMISTRY: NA K CA CHLOR CO2 GLUC BUN CREAT 132 4.9 7.9 98 23 93 29 0.95 HEPATIC: ALT AST 32 33 METABOLIC: CHOL LDL HDL TG TSH HBA1C No results found for this basename: CHOL:1 No results found for this basename: LDL:1 No results found for this basename: HDL:1 No results found for this basename: T 1.770 No results found for this basename: HBA1C:1 COAG: APTT INR No results found for this basename: APTT:1 No results found for this basename: INR:1 PHYSICAL EXAM: BP 146/100 Pulse 84 Ht 156.2 cm (5' 1.5) Wt 73.5 kg (162 lb) LMP 10/22/2023 (Approximate) Yes BMI 30.11 kg/m PHQ= 15 , Med Diet Score= 5 General: Well appearing, in no acute distress, speaking in complete sentences. Skin: No clubbing, no cyanosis. Eyes: Extra ocular movements intact Oropharynx: poor dentition Neck: no jugular venous distention,, no carotid bruits, Lungs: Clear to auscultation bilaterally, no wheezing or rhonchi. Heart: Regular rhythm Abdomen: Soft Extremities: No peripheral edema . Grade 2/4 distal pulses bilaterally. , mild deformity of LUE Neuro: Oriented to person, place and time, alert, cooperative, gait coordinated. ASSESSMENT: (O11.9) Chronic hypertension with superimposed pre-eclampsia (primary encounter diagnosis) Plan: ECG COMPLETE, REFERRAL, COMPLETE BLOOD COUNT, T4 FREE/FREE THYROXINE, HIGH SENSITIVITY C-REACTIVE PROTEIN, THYROID STIMULATING HORMONE, COMPREHENSIVE METABOLIC PANEL, LIPID PANEL, NONFASTING, NT PRO BNP, ECHO, perflutren lipid microspheres 1.3 mL in NaCl (PF) 0.9% 10 mL injection (DEFINITY), sodium chloride 0.9 % (flush) 10 mL (BD POSIFLUSH) (Z39.2) care and examination Plan: ECG COMPLETE, REFERRAL, COMPLETE BLOOD COUNT, T4 FREE/FREE THYROXINE, HIGH SENSITIVITY C-REACTIVE PROTEIN, THYROID STIMULATING HORMONE, COMPREHENSIVE METABOLIC PANEL, LIPID PANEL, NONFASTING, NT PRO BNP (Z71.82) Exercise counseling Plan: ECG COMPLETE, REFERRAL, COMPLETE BLOOD COUNT, T4 FREE/FREE THYROXINE, HIGH SENSITIVITY C-REACTIVE PROTEIN, THYROID STIMULATING HORMONE, COMPREHENSIVE METABOLIC PANEL, LIPID PANEL, NONFASTING, NT PRO BNP (Z00.8) Nutritional assessment Plan: ECG COMPLETE, REFERRAL, COMPLETE BLOOD COUNT, T4 FREE/FREE THYROXINE, HIGH SENSITIVITY C-REACTIVE PROTEIN, THYROID STIMULATING HORMONE, COMPREHENSIVE METABOLIC PANEL, LIPID PANEL, NONFASTING, NT PRO BNP (O60.10X0) delivery Plan: ECG COMPLETE, REFERRAL, COMPLETE BLOOD COUNT, T4 FREE/FREE THYROXINE, HIGH SENSITIVITY C-REACTIVE PROTEIN, THYROID STIMULATING HORMONE, COMPREHENSIVE METABOLIC PANEL, LIPID PANEL, NONFASTING, NT PRO BNP (P07.10) Low weight [facility] STAFF PHYSICIAN NOTE OF PERSONAL INVOLVEMENT IN CARE IMPRESSION: Patient is a 28 year old female cHTN and SIP, LBW and PTB PLAN: - BP elevated today off meds. Blood pressure log provided - echo for structure and function - ASA: prophylaxis recommended for future pregnancies - contraception: Mirena IUD - PHQ screen is high - she will continue f/u with - PCP in 3-6months I have reviewed the documentation obtained and documented by the Nurse Practitioner and I have personally performed the substantive portion of the visit which includes the medical decision making. I have discussed the case and management of the patient's care. STAFF PHYSICIAN: Braden Christopher MD DATE OF SERVICE: September 09, 2024 TIME OF SERVICE: 2:42 PM I spent 60mins face to face with patient and >50% of this time was spent in consultation and coordination of care. She is educated about the implications of -related hypertensive disorders and elevated future cardiovascular risks. The components of the metabolic syndrome and goals to work toward minimizing CV events through controlled risk factors were reviewed. Will send risk stratification labs. She is educated about potential risks of hypertensive disorders in future pregnancies. She will aim for at least 150mins of moderate-intensity aerobic activity. She is advised to reduce intake of processed foods and lean more toward a plant-based diet. Additional lifestyle education materials are provided on clinic discharge. Thank you for allowing me to participate in the care of your patient. Please feel free to contact me with any questions or concerns. Sincerely- Braden Christopher MD Staff Software Systems Architect Orders Placed This Encounter CBC Standing Status: Future Expected Date: 09/09/2024 Expiration Date: 12/09/2024 T4 FREE/FREE THYROX Standing Status: Future Expected Date: 09/09/2024 Expiration Date: 12/09/2024 Scheduling Instructions: In preparation for this test, do not take multivitamins or dietary supplements containing biotin (vitamin B7) for at least 12 hours. Biotin is commonly found in hair, skin, and nail supplements and multivitamins. Tell your doctor if you take supplements containing biotin as part of your medication history. C-REACTIVE ULTRA SEN Standing Status: Future Expected Date: 09/09/2024 Expiration Date: 12/09/2024 TSH Blood Standing Status: Future Expected Date: 09/09/2024 Expiration Date: 12/09/2024 Comp Metabolic Panel Standing Status: Future Expected Date: 09/09/2024 Expiration Date: 12/09/2024 LIPID PANEL, NONFASTING Standing Status: Future Expected Date: 09/09/2024 Expiration Date: 12/09/2024 NT Pro BNP Standing Status: Future Expected Date: 09/09/2024 Expiration Date: 12/09/2024 REFERRAL Does consulting provider have [facility] Epic access?: Yes ECG (IN OFFICE) ECHO Standing Status: Future Expiration Date: 09/09/2025 Disease / Condition:: Hypertension documented in this encounter [facility] 09-09-2024 Note HNO ID: [id number] Author: BRADEN CHRISTOPHER MD Service: ? Author Type: Physician Type: Progress Notes Filed: 09/09/2024 14:50 Note Text: [facility] Department of Cardiology [address] [place] [address] (office) [phone] (fax) 09/09/2024 This note was written using medical terminology and is intended to be used for medical purposes by other health adult care manager Patient presents with: Care HPI: Ms. Alarcon is a 28 year old female with below PMH who is referred for a Heart visit for chronic hypertension with DEBBIE. She was admitted at 31 close for for chronic hypertension was treated with IV labetalol and started on magnesium. She met criteria for preeclampsia and was transferred to [facility]. At 32 weeks she developed chest pain and hypoxia. A chest x-ray showed pulmonary edema she was treated with IV Lasix and induced. She proceed with a due to distress. her blood pressure normalized with nifedipine 60 mg twice daily. She ran out of the medications and has not been taking them. This was her second . She did not have issues with preeclampsia or diabetes in her first . She is not sure if she wants future pregnancies. She currently has a mirena IUD for prophylaxis. She is following with a counselor for mental health. Delivery Date:06/02/2024 Weeks at Delivery:32 + 0 Mode of Delivery:C. Section ?:yes On aspirin for PEC prevention during ?: No Discharged on blood pressure meds?:yes Discharged on diabetes meds?:No Cardiology: The review of symptoms was negative for chest pain, shortness of breath, orthopnea, paroxysmal nocturnal dyspnea, palpitation, edema General ROS: Otherwise 14 systems ROS is negative except as stated above. PAST MEDICAL HISTORY Diagnosis Date Adjustment disorder Brain tumor (HCC) optic glioma Chronic hypertension affecting 04/24/2024 Taking Labetalol 200mg q12h and Nifedipine XL 60mg twice daily (up titrated [facility] admission 04/17-04/23) Secondary HTN work up on admission unremarkable, no evidence superimposed preeclampsia Growth US every 4 wk starting at 32wk Twice weekly testing at 30 weeks IOL 36-37w, would favor later /early term given hospitalization for exacerbation third trimester (delivery recommended [facility]) Chronic hypertension with superimposed pre-eclampsia 05/30/2024 Admitted from OSH with concerns for SIPEw/o exacerbation vs. 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 H/O pyloric stenosis 11/1995 s/p repair Learning disability IEP, reading and spelling MIGRAINE NOS W/O MENTN INTRACTABLE Stock Neurofibromatosis, type 1 (HCC) [place] Optic nerve glioma (HCC) Left eye Periodic limb movement does not inerfere with sleep Scoliosis Seizure (HCC) Visual field constriction of right eye PAST SURGICAL HISTORY Procedure Laterality Date BOTOX INJECTION For migraines every 3 months SECTION HX 06/02/2024 pyloric stenosis 12/1995 UNLISTED PROCEDURE HUMERUS/ELBOW left elbow re-construction x 3 Current Outpatient Medications: levonorgestrel (MIRENA) 21 mcg/24hr (up to 8 yrs) 52 mg IUD, 1 Each by INTRAUTERINE route as directed., Disp: 1 Each, Rfl: 0 escitalopram oxalate (LEXAPRO) 10 mg tablet, Take 1 tablet by mouth once daily., Disp: 30 tablet, Rfl: 3 labetalol (TRANDATE) 200 mg tablet, Take 4 tablets by mouth every 8 hours., Disp: 1080 tablet, Rfl: 0 NIFEdipine ER (PROCARDIA XL) 60 mg 24 hr tablet, Take 1 tablet by mouth two times a day., Disp: 180 tablet, Rfl: 0 folic acid 1 mg tablet, Take 3 tablets by mouth once daily., Disp: 90 tablet, Rfl: 5 vit/iron fum/folic ac (RIGHT STEP VITAMINS ORAL), Take by mouth. Neomy, Disp: , Rfl: levETIRAcetam (KEPPRA) 500 mg tablet, Take 1,000 mg by mouth two times a day., Disp: , Rfl: fluticasone (FLONASE) 50 mcg/actuation nasal spray, Use 1 [place] in each nostril once daily., Disp: , Rfl: ALLERGIES Allergen Reactions Dextroamphetamine Mental Status Change Per patient - hallucinations Gabapentin Rash Seasonal Allergies Cough AVAILABLE LABS, EKGS, CARDIAC TESTING/PROCEDURES, FAMILY HISTORY AND SOCIAL HISTORY WERE REVIEWED AND UPDATED IN [facility]. ECG 09/09/2024 Normal Sinus Rhythm Normal ECG ECG 06/02/2024 LABORATORY TESTS: CBC: WBC HGB PLT 23.24 9.1 253 CHEMISTRY: NA K CA CHLOR CO2 GLUC BUN CREAT 132 4.9 7.9 98 23 93 29 0.95 HEPATIC: ALT AST 32 33 METABOLIC: C (more content not included)... [facility] 07-15-2024 Instructions Gentry Nichols MA - 07/15/2024 1:53 PM EST POST IUD INSTRUCTIONS You may have irregular bleeding during the first 3 months of use. You may have mild-severe cramping for the next 48 hours. You may use over the counter medication (Motrin, Tylenol) as needed. Your IUD must be removed or replaced based on the following table: IUD Type Removed or replaced within: Madeline 3 years Kyleena 5 years Mirena 8 years Liletta 8 years Paragard 10 years Call the office for signs/symptoms of infection such as severe cramping, fever, or unusual bleeding. Check for string placement as instructed by your doctor. If you have any additional questions, please contact the office. documented in this encounter [facility] 07-15-2024 Note HNO ID: [id number] Author: JOCELYN BOTELLO MD Service: ? Author Type: Physician Type: Progress Notes Filed: 07/15/2024 20:33 Note Text: Vegetable Cook offered: Patient declines. VISIT Pablo Alarcon is a 28 year old year old here for visit. Delivery Summary: Primary c/s 06/02/24 for NRFHR Supplementing formula more than breast milk Struggling with anxiety. Has tried Zoloft in the past but did not like it. [place] it made her worse. Does have a counselor she is working with. Wanting to try a vermin exterminator medication. Has most used xanax in the past. No thoughts of harm. ROS/ Recovery: Feeding: Breast and bottle feeding problems: Inadequate milk supply Menses since delivery: none Menstrual pattern prior to : Regular periods [place] since delivery: Resumed Depression: on and off symptoms of depression. OB Depression and Anxiety Screening- This Encounter (since 07/14/2024) Over the past 2 weeks have you felt down, depressed, or hopeless? Positive - Further Testing Indicated Over the past two weeks, have you felt little interest or pleasure in doing things?? Positive - Further Testing Indicated I have been able to laugh and see the funny side of things. Not quite so much now I have looked forward with enjoyment to things. Rather less than I used to I have blamed myself unnecessarily when things went wrong. Yes, most of the time I have been anxious or worried for no good reason. Yes, sometimes I have felt scared or panicky for no good reason. Yes, quite a lot Things have been getting on top of me. Yes, most of the time I haven't been able to cope at all I have been so unhappy that I have had difficulty sleeping. Yes, most of the time I have felt sad or miserable. Yes, quite often I have been so unhappy that I have been crying. Yes, quite often The thought of harming myself has occurred to me. Never Constantia Depression Scale Total 20 Feeling nervous, anxious or on edge 1-Several days Not being able to stop or control worrying 1-Several days Anxiety Pre-Screening Total (If >/= 3 additional questions will be reviewed) 2 Emotional support: Yes Bowel symptoms: Negative for abdominal discomfort, blood in stools or black stools and change in bowel habits Abdomen: She reports no incisional redness, tenderness, erythema Bladder symptoms: No dysuria, gross hematuria, urinary frequency, urinary urgency, or incontinence Other issues: None Last Pap: 2022 normal HPV: negative PAST MEDICAL HISTORY Diagnosis Date Adjustment disorder Brain tumor (HCC) optic glioma Developmental delay 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 H/O pyloric stenosis 11/1995 s/p repair Learning disability IEP, reading and spelling MIGRAINE NOS W/O MENTN INTRACTABLE Stock Neurofibromatosis, type 1 (HCC) [place] Optic nerve glioma (HCC) Left eye Periodic limb movement does not inerfere with sleep Scoliosis Seizure (HCC) Visual field constriction of right eye PAST SURGICAL HISTORY Procedure Laterality Date BOTOX INJECTION For migraines every 3 months SECTION HX 06/02/2024 pyloric stenosis 12/1995 UNLISTED PROCEDURE HUMERUS/ELBOW left elbow re-construction x 3 FAMILY HISTORY Problem Relation Age of Onset Asthma Mother Maternal side Cancer Mother Maternal side Diabetes Mother Maternal side other (Neurofibromatosis) Mother Cancer Father Paternal side Diabetes Father Paternal side Ischemic Heart Disease Father [place] Asthma Father Paternal side Hypertension Father Diabetes Maternal Grandmother Heart Maternal Grandmother other (Neurofibromatosis) Maternal Grandmother Heart Paternal Grandmother CHF Ischemic Heart Disease Paternal Grandmother other (Neurofibromatosis) Brother other (Neurofibromatosis) Brother other (Neurofibromatosis) Sister Social History Tobacco Use Smoking status: Former Types: Cigarettes Passive exposure: Yes Smokeless tobacco: Never Tobacco comments: mom and dad smoke outside Vaping Use Vaping status: Former Substance Use Topics Alcohol use: No Drug use: No PHYSICAL EXAMINATION: SENSITIVE EXAM: The sensitive examination was discussed with the Patient or Patient's Authorized Division Head. As applicable, any other physician, advance practice provider, medical student, or other health professional student that will be observing or involved in the sensitive examination for educational or training purposes was discussed with the Patient or Authorized Division Head. The Patient or Authorized Division Head has agreed to proceed with the sensitive examination. (Sensitive examination includes inspection and/or palpation of the breasts, pelvis, prostate and anorectal regions). BP 134/96 Wt 159 lb (72.1kg) LMP 10/22/2023 GENERAL: pleasant, female in no apparen (more content not included)... [facility] 07-15-2024 History of Presen t illness Narrative Vegetable Cook offered: Patient declines. VISIT Pablo Alarcon is a 28 year old year old here for visit. Delivery Summary: Primary c/s 06/02/24 for NRFHR Supplementing formula more than breast milk Struggling with anxiety. Has tried Zoloft in the past but did not like it. [place] it made her worse. Does have a counselor she is working with. Wanting to try a vermin exterminator medication. Has most used xanax in the past. No thoughts of harm. ROS/ Recovery: Feeding: Breast and bottle feeding problems: Inadequate milk supply Menses since delivery: none Menstrual pattern prior to : Regular periods [place] since delivery: Resumed Depression: on and off symptoms of depression. OB Depression and Anxiety Screening- This Encounter (since 07/14/2024) Over the past 2 weeks have you felt down, depressed, or hopeless? Positive - Further Testing Indicated Over the past two weeks, have you felt little interest or pleasure in doing things? Positive - Further Testing Indicated I have been able to laugh and see the funny side of things. Not quite so much now I have looked forward with enjoyment to things. Rather less than I used to I have blamed myself unnecessarily when things went wrong. Yes, most of the time I have been anxious or worried for no good reason. Yes, sometimes I have felt scared or panicky for no good reason. Yes, quite a lot Things have been getting on top of me. Yes, most of the time I haven't been able to cope at all I have been so unhappy that I have had difficulty sleeping. Yes, most of the time I have felt sad or miserable. Yes, quite often I have been so unhappy that I have been crying. Yes, quite often The thought of harming myself has occurred to me. Never Constantia Depression Scale Total 20 Feeling nervous, anxious or on edge 1-Several days Not being able to stop or control worrying 1-Several days Anxiety Pre-Screening Total (If >/= 3 additional questions will be reviewed) 2 Emotional support: Yes Bowel symptoms: Negative for abdominal discomfort, blood in stools or black stools and change in bowel habits Abdomen: She reports no incisional redness, tenderness, erythema Bladder symptoms: No dysuria, gross hematuria, urinary frequency, urinary urgency, or incontinence Other issues: None Last Pap: 2022 normal HPV: negative PAST MEDICAL HISTORY Diagnosis Date Adjustment disorder Brain tumor (HCC) optic glioma Developmental delay 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 H/O pyloric stenosis 11/1995 s/p repair Learning disability IEP, reading and spelling MIGRAINE NOS W/O MENTN INTRACTABLE Stock Neurofibromatosis, type 1 (HCC) [place] Optic nerve glioma (HCC) Left eye Periodic limb movement does not inerfere with sleep Scoliosis Seizure (HCC) Visual field constriction of right eye PAST SURGICAL HISTORY Procedure Laterality Date BOTOX INJECTION For migraines every 3 months SECTION HX 06/02/2024 pyloric stenosis 12/1995 UNLISTED PROCEDURE HUMERUS/ELBOW left elbow re-construction x 3 FAMILY HISTORY Problem Relation Age of Onset Asthma Mother Maternal side Cancer Mother Maternal side Diabetes Mother Maternal side other (Neurofibromatosis) Mother Cancer Father Paternal side Diabetes Father Paternal side Ischemic Heart Disease Father [place] Asthma Father Paternal side Hypertension Father Diabetes Maternal Grandmother Heart Maternal Grandmother other (Neurofibromatosis) Maternal Grandmother Heart Paternal Grandmother CHF Ischemic Heart Disease Paternal Grandmother other (Neurofibromatosis) Brother other (Neurofibromatosis) Brother other (Neurofibromatosis) Sister Social History Tobacco Use Smoking status: Former Types: Cigarettes Passive exposure: Yes Smokeless tobacco: Never Tobacco comments: mom and dad smoke outside Vaping Use Vaping status: Former Substance Use Topics Alcohol use: No Drug use: No PHYSICAL EXAMINATION: SENSITIVE EXAM: The sensitive examination was discussed with the Patient or Patient's Authorized Division Head. As applicable, any other physician, advance practice provider, medical student, or other health professional student that will be observing or involved in the sensitive examination for educational or training purposes was discussed with the Patient or Authorized Division Head. The Patient or Authorized Division Head has agreed to proceed with the sensitive examination. (Sensitive examination includes inspection and/or palpation of the breasts, pelvis, prostate and anorectal regions). BP 134/96 Wt 159 lb (72.1kg) LMP 10/22/2023 GENERAL: pleasant, female in no apparent distress HEENT: Normocephalic, atraumatic, mucus membranes moist, and no lesions NECK: Supple, full range of motion, no adenopathy, and thyroid normal DERMATOLOGY: Normal, without lesions, non-icteric, and non-hirsute BREAST: soft, non-tender, symmetric, no dominant mass, normal nipple-areolar complex, no lymphadenopathy, and no nipple discharge CHEST: Normal inspiratory effort ABDOMEN: soft, non-tender, and no masses. INCISION: No incisional redness, swelling, or drainage PELVIC: external genitalia normal, normal Bartholin's glands, urethra, Sulligent's glands, no vulvar lesions, no cervical lesions, good vaginal support, physiologic discharge present, normal appearing perineal body and perianal region BIMANUAL: uterus normal size, shape and consistency, no adnexal masses, and non-tender NEURO: alert and oriented x3,exam grossly non-focal EXTREMITIES: normal ASSESSMENT AND PLAN: 28 year old status post CS with normal course. Contraception plan: IUD - Mirena Follow up: RTC for annual exams and PRN Jocelyn Botello MD Pablo presents today for IUD insertion for contraception. Patient's last menstrual period was 10/22/2023 (approximate). GC/chlamydia: Collected today test: negative Side effects including irregular bleeding were discussed with the patient. The patient understands that it should be removed in 8 years or sooner if the patient desires a . IUD source: office provided IUD lot #: [id number] Exp date: 08/2026 UNIVERSAL PROTOCOL / SAFETY CHECKLIST Procedure to be Performed: IUD Insertion Mirena Sign In: A Moment of CARE was completed. Personnel directly involved with the procedure wore the appropriate PPE (Personal Protective Equipment). Patient/Surrogate Stated/Verified: PATIENT VERIFIED(optional for EMERGENT procedures): Patient name, Date of , Relevant allergies, and The intended procedure Time Out Communication: Intended patient and procedure match the source documents. Consent documented and matches the intended procedure. Sign Out: SIGN OUT (optional for EMERGENT procedures): No specimen collected. The cervix was prepped with betadine. The uterus sounded to 9 cm and the uterus is Anteverted.. Using sterile technique, the Mirena IUD was inserted without difficulty and the string was cut to 3 cm from the external os of the cervix. Patient tolerated procedure well. PLAN: Patient was advised to observe for signs and symptoms of infection including but not limited to fever, malodorous vaginal discharge and/or pain. The patient was told to check the string monthly for accurate placement. Bleeding expectations were reviewed. Follow up for next annual exam or sooner as needed. Jocelyn Botello MD documented in this encounter [facility] 06-18-2024 Note HNO ID: [id number] Author: KOFI MONREAL APRN.CNM Service: ? Author Type: Customer Advocate Type: Progress Notes Filed: 06/18/2024 15:30 Note Text: VIRTUAL VISIT PROGRESS NOTE This is a virtual visit using [employer] Zoom Video Visit. It required patient-provider interaction for the medical decision making as documented below. I have communicated my name and active licensure. The patient's identity and physical location were verified at the time of this visit. Either the patient or their legal promotional representative has been informed of the risks and benefits of -- and alternatives to -- treatment through a remote evaluation and consents to proceed with the evaluation remotely. Pablo Alarcon is a 28 year old female seen for breast feeding concern. Seen in office yesterday for post exam. Infant currently in NICU at [facility]. born at 32 weeks gestation. Reports was told today that infant has oral thrush and she needed to be treated. She is currently pumping and putting infant to breast at times. She denies any redness, or pain with feeding on right breast only. Reports that left breast has occasional pain with feeding. 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 H/O pyloric stenosis 11/1995 s/p repair Learning disability IEP, reading and spelling MIGRAINE NOS W/O MENTN INTRACTABLE Stock Neurofibromatosis, type 1 (HCC) [place] Optic nerve glioma (HCC) Left eye Periodic limb movement does not inerfere with sleep Scoliosis Seizure (HCC) Visual field constriction of right eye PAST SURGICAL HISTORY Procedure Laterality Date BOTOX INJECTION For migraines every 3 months pyloric stenosis 12/1995 UNLISTED PROCEDURE HUMERUS/ELBOW left elbow re-construction x 3 FAMILY HISTORY Problem Relation Age of Onset Asthma Mother Maternal side Cancer Mother Maternal side Diabetes Mother Maternal side other (Neurofibromatosis) Mother Cancer Father Paternal side Diabetes Father Paternal side Ischemic Heart Disease Father [place] Asthma Father Paternal side Hypertension Father Diabetes Maternal Grandmother Heart Maternal Grandmother other (Neurofibromatosis) Maternal Grandmother Heart Paternal Grandmother CHF Ischemic Heart Disease Paternal Grandmother other (Neurofibromatosis) Brother other (Neurofibromatosis) Brother other (Neurofibromatosis) Sister Social History Tobacco Use Smoking status: Former Types: Cigarettes Passive exposure: Yes Smokeless tobacco: Never Tobacco comments: mom and dad smoke outside Vaping Use Vaping status: Former Substance Use Topics Alcohol use: No Drug use: No Current Outpatient Medications Medication Sig miconazole nitrate (CRITIC-AID;ALOE VESTA) 2 % oint Apply to affected area two times a day for 14 days. labetalol (TRANDATE) 200 mg tablet Take 4 tablets by mouth every 8 hours. NIFEdipine ER (PROCARDIA XL) 60 mg 24 hr tablet Take 1 tablet by mouth two times a day. folic acid 1 mg tablet Take 3 tablets by mouth once daily. vit/iron fum/folic ac (RIGHT STEP VITAMINS ORAL) Take by mouth. Gummy levETIRAcetam (KEPPRA) 500 mg tablet Take 1,000 mg by mouth two times a day. fluticasone (FLONASE) 50 mcg/actuation nasal spray Use 1 [place] in each nostril once daily. No current facility-administered medications for this visit. ALLERGIES Allergen Reactions Dextroamphetamine Mental Status Change Per patient - hallucinations Gabapentin Rash Seasonal Allergies Cough REVIEW OF SYSTEMS: GENERAL: feeling well without fatigue SKIN: no rash, intermittent pain in left breast All other ROS: negative PHYSICAL EXAMINATION: VIDEO EXAM: (if completed, performed via video enabled technology) GENERAL: alert and appropriate, in no distress, well-hydrated, well nourished, and happy, smiling, interactive ASSESSMENT: (B37.89) Candidiasis of breast (primary encounter diagnosis) (Z39.1) Lactating mother (P37.5) thrush @ALLSL@ PLAN: Rx for Miconazole 2% ointment to place on nipples BID x 14 days. Patient will call if s/s worsen or 's thrush doesn't resolve. There are no Patient Instructions on file for this visit. I spent a total of 15 minutes on the date of the service which included preparing to see the patient, completing clinical documentation, counseling and educating the patient/family/caregiver, and ordering medications, tests, or procedures Kofi Monreal APRN.[facility] 06-18-2024 History of Presen t illness Narrative VIRTUAL VISIT PROGRESS NOTE This is a virtual visit using [employer] Video Visit. It required patient-provider interaction for the medical decision making as documented below. I have communicated my name and active licensure. The patient's identity and physical location were verified at the time of this visit. Either the patient or their legal promotional representative has been informed of the risks and benefits of -- and alternatives to -- treatment through a remote evaluation and consents to proceed with the evaluation remotely. Pablo Alarcon is a 28 year old female seen for breast feeding concern. Seen in office yesterday for post exam. currently in NICU at [facility]. Infant born at 32 weeks gestation. Reports was told today that infant has oral thrush and she needed to be treated. She is currently pumping and putting to breast at times. She denies any redness, or pain with feeding on right breast only. Reports that left breast has occasional pain with feeding. 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 H/O pyloric stenosis 11/1995 s/p repair Learning disability IEP, reading and spelling MIGRAINE NOS W/O MENTN INTRACTABLE Stock Neurofibromatosis, type 1 (HCC) [place] Optic nerve glioma (HCC) Left eye Periodic limb movement does not inerfere with sleep Scoliosis Seizure (HCC) Visual field constriction of right eye PAST SURGICAL HISTORY Procedure Laterality Date BOTOX INJECTION For migraines every 3 months pyloric stenosis 12/1995 UNLISTED PROCEDURE HUMERUS/ELBOW left elbow re-construction x 3 FAMILY HISTORY Problem Relation Age of Onset Asthma Mother Maternal side Cancer Mother Maternal side Diabetes Mother Maternal side other (Neurofibromatosis) Mother Cancer Father Paternal side Diabetes Father Paternal side Ischemic Heart Disease Father GA Asthma Father Paternal side Hypertension Father Diabetes Maternal Grandmother Heart Maternal Grandmother other (Neurofibromatosis) Maternal Grandmother Heart Paternal Grandmother CHF Ischemic Heart Disease Paternal Grandmother other (Neurofibromatosis) Brother other (Neurofibromatosis) Brother other (Neurofibromatosis) Sister Social History Tobacco Use Smoking status: Former Types: Cigarettes Passive exposure: Yes Smokeless tobacco: Never Tobacco comments: mom and dad smoke outside Vaping Use Vaping status: Former Substance Use Topics Alcohol use: No Drug use: No Current Outpatient Medications Medication Sig miconazole nitrate (CRITIC-AID;ALOE VESTA) 2 % oint Apply to affected area two times a day for 14 days. labetalol (TRANDATE) 200 mg tablet Take 4 tablets by mouth every 8 hours. NIFEdipine ER (PROCARDIA XL) 60 mg 24 hr tablet Take 1 tablet by mouth two times a day. folic acid 1 mg tablet Take 3 tablets by mouth once daily. vit/iron fum/folic ac (RIGHT STEP VITAMINS ORAL) Take by mouth. Gummy levETIRAcetam (KEPPRA) 500 mg tablet Take 1,000 mg by mouth two times a day. fluticasone (FLONASE) 50 mcg/actuation nasal spray Use 1 [place] in each nostril once daily. No current facility-administered medications for this visit. ALLERGIES Allergen Reactions Dextroamphetamine Mental Status Change Per patient - hallucinations Gabapentin Rash Seasonal Allergies Cough REVIEW OF SYSTEMS: GENERAL: feeling well without fatigue SKIN: no rash, intermittent pain in left breast All other ROS: negative PHYSICAL EXAMINATION: VIDEO EXAM: (if completed, performed via video enabled technology) GENERAL: alert and appropriate, in no distress, well-hydrated, well nourished, and happy, smiling, interactive ASSESSMENT: (B37.89) Candidiasis of breast (primary encounter diagnosis) (Z39.1) Lactating mother (P37.5) thrush @ALLSL@ PLAN: Rx for Miconazole 2% ointment to place on nipples BID x 14 days. Patient will call if s/s worsen or infant's thrush doesn't resolve. There are no Patient Instructions on file for this visit. I spent a total of 15 minutes on the date of the service which included preparing to see the patient, completing clinical documentation, counseling and educating the patient/family/caregiver, and ordering medications, tests, or procedures Kofi Monreal APRN.CNM documented in this encounter [facility] 06-18-2024 Telephone encounter Note Scheduled virtual visit with CP as patient was seen by provider yesterday. Jocelyn Silvestre RN [facility] 06-18-2024 Miscellaneous Notes Scheduled virtual visit with CP as patient was seen by provider yesterday. Jocelyn Silvestre RN needs appointment for rxs to be sent. Can be VV or send PharmMD message. Lizzette Galan MD Patient called stating that she is and her baby has been dx w/ thrush. Patient was told to call our office to treated. Patient would like a call back. Pharmacy was updated. documented in this encounter [facility] 06-18-2024 Telephone encounter Note needs appointment for rxs to be sent. Can be VV or send PharmMD message. Lizzette Galan MD [facility] Work Phone: 06-18-2024 Telephone encounter Note Patient called stating that she is and her baby has been dx w/ thrush. Patient was told to call our office to treated. Patient would like a call back. Pharmacy was updated. [facility] 06-17-2024 Instructions Kofi Monreal APRN.NIKOLAS - 06/17/2024 3:52 PM EST Here are some links for wonderful Providers here in the community and surrounding areas. Do not hesitate to contact their offices, many are offering virtual visits during this time. 3-895-5-GJMC2QEIL - [facility] Maternal Mental Health Hotline If you are in suicidal crisis, please call or text 5-937-143-TALK ( ) or visit the National Suicide Prevention Lifeline website. m[facility].gov [facility] Psychology, Psychiatry, Counseling Connect with therapist/ can do virtual visits [phone] Referral to the [facility] To schedule an appointment, please call the Center for [facility] Appointment Line: [phone] option 1 [facility] - [place], [place] [address], [place] [id number] [address] [place] [address] [place] [address] [place] [address] [facility] [address] [place] [address] Matias Espinoza MD [address] [place], [place] [id number] [facility] [address], [address] [place] [address] [facility] [address] [place] [address] [facility] [place] / [place] [phone]/ [phone] Maritza Webster [address] [facility] [phone] [facility] Med[facility] [place] / [place] [phone] Behavioral health services of [facility] [address] [place] [address]/ [place] [phone] Mildred Gates, LUISA, CLC [facility] Workshops, telehealth and at home visits. [phone] Humanistic counseling [place] 20 locations [facility], [place], [place], [place], [place], [place], [facility], [place], [place], [place], [place], [place], [place], [facility], [place], [place] ,[facility], [place], [place],[facility], [facility], [place], [facility], [facility], [place] www.legacy health.[facility] hospital [phone] Psychotherapy resources outside of [facility] are listed below [facility] Web: https://www.Zenph Sound Innovations/ Support International Online Provider Directory https://Cubicle/ [facility] https://Glyde.Ylopo/ Partners [facility]al Health and Wellness Web: https://Dizzion/ Center for Effective Living Web: https://www.Azubuliving.Ylopo / LifeStance Web: https://Knight Therapeutics.Ylopo/location/ [facility]/[place]/ [facility] Web: https://www.[facility].o / [facility] Web: https://[address] Biouniversity hospitals [facility].org/ Recovery Resources Mental health and substance abuse help Web: https://www.Shicon & RESOURCES Support International Direct peer support and connection to professional resources Non-Emergency Helpline Phone: / Text: [phone] Web: https://www..net/ Online Provider Directory: https://Cubicle/ Online Support Meetings: https://www..net/get-h elp/grp-oyxlnl-oznrpvl-meetings/ DAHLIA Baby and Music Video Director Services Web: https://Crowdmark/ MotherQuid Expert information on medication use during and Text: [phone] Web: https://Janrain/ NATIONAL REGISTRY FOR PSYCHIATRIC MEDICATIONS Currently studying the safety of antidepressants, ADHD medications and atypical antipsychotics taken during TO PARTICIPATE CALL TOLL-FREE: Web: https://womensmentalhealth.org/r esearch/pregnancyregistry/ Support Groups: [facility]- Follow on facebook Baby Bistro support group led by [facility] department [facility] Mamas - Support Group [facility].org The POEM support group [phone] Www.poemonline.org Follow on facebook - POJOSH nathan chapter Online support meetings PSI https://www..net/get-h elp/esm-brtjmg-hziakqo-meetings/ [facility] momkinga and me virtual support group 11:30-1pm Support for mothers and new babies and toddlers [place] childbirth education: Childbirth @cc.org or call [phone] CRISIS: CRISIS HOTLINE [phone], 911 or go to the nearest [facility] [phone] / [facility] [phone] https://www.[facility].org Crisis text line text the word HOME to [phone] [facility] [address] josemanuel [address] [facility] [address] www.WeLinkomariMatatena Games Carrie Rodriguez clinical counseling [address] [facility] [address] [place] [address] www.PublicBeta [phone] Holding space psychotherapy Ryleeemily Pinkjosé MIXER CRANE OPERATOR LIME KILN OPERATOR-S [address] [facility] www.Artisan State [phone]/ [place] [phone] They all offer virtual. All work with trauma Support groups Online support meetings PSI https://www..net/get-h elp/vmt-ppunoo-ofjxlvs-meetings/ Here are the support groups they offer: Support of parents of 1 to 4 years old children POEM ( Outreach and Encouragement for Moms) offers free support for mothers experiencing depression, anxiety, and other mood and anxiety disorders. Masks are recommended but not required. No pre-registration required. Babies in arms welcome. meetings now take place on the and Saturday of each month Location: [facility] [address] [place] [address] Room 122 (library room) 7-8:00 p.m. When you enter the [facility] parking lot off of [address] [address] the entrance door closest to our meeting room is on the front of the building toward the right. For those who are more comfortable with a virtual platform, POEM offers online support group options several days of the week. To register for an online group or to find out more about POEM, website at: https://mhaohio.org/get-help/[facility] twlbt-rpjzef-fyfrxg/demond-service s/ offer a confidential helpline: private Facebook group is called DEMOND Morel Here are the groups they offer: Traumatic childbirth resources: Http://pattch.org/ https://www.veroniqueCURRENTjaye Cylon Controls.Ylopo/ documented in this encounter [facility] 06-17-2024 Note HNO ID: [id number] Author: KOFI MONREAL APRN.CNM Service: ? Author Type: Customer Advocate Type: Progress Notes Filed: 06/17/2024 15:53 Note Text: EARLY VISIT Pablo Alarcon is a 28 year old here for 2 week visit. Primary Section at [facility] for preeclampsia and declarations at 32 weeks gestation. Baby in NICU. Delivery Summary: Micah Alarcon [[id number]] Delivery Information: Delivery Date: 06/02/24 Delivery type: , Low Transverse Delivering Clinician: Jocelyn Jennings MD : Gender: Male Weight (grams): 1510 g One Minute : 8 Five Minute : 9 ROS: General: Denies any fever or chills Hypertension Screening: Headache? No. Visual Changes? No Epigastric Pain? No Increased Swelling? No Taking any BP medications at home? yes If applicable, monitoring BP at home? (If Yes, include results) Yes, 130-140/80-90's Taking Procardia 60 mg XL PO daily Labetalol 200 mg PO TID Mood: stable Depression: yes, depression. Baby in NICU Stated stopped taking Zoloft because it made her feel more anxious and more depressed. Currently seeing counselor with plans to discuss other medication options. Feeding: Breast and bottle feeding problems: None Bladder: No dysuria, gross hematuria, urinary frequency, urinary urgency, or incontinence Bowel symptoms: Negative for abdominal discomfort, blood in stools or black stools and change in bowel habits Abdomen: She reports no incisional redness, tenderness, erythema, pain rated 5 Bleeding: spotting Bottom and Perineum: n/a Sleep: no sleep concerns, does not feel rested [place] since delivery: Not resumed Emotional support: Yes Exercise: N/A Other issues: None SENSITIVE EXAM: Sensitive exam not performed. PHYSICAL EXAMINATION: BP 126/78 Wt 71.9 kg (158 lb 9.6 oz) LMP 10/22/2023 (Approximate) Yes BMI 29.97 kg/m? General: pleasant,female in no apparent distress, AANDO x 3. Skin warm and intact. Breast: Deferred Abdomen: Deferred /Incision: No incisional redness, swelling, or drainage Pelvic: Deferred Bimanual: Deferred Constantia Depression Scale Total: 19 ASSESSMENT AND PLAN: 28 year old status post CS with normal course. Blood pressures stable- Continue Labetalol 200 mg PO TID and Procardia 60 mg XL PO daily Continue blood pressure monitoring with parameters to report if any >160/110 Continue counseling- Offered consult to [facility]- patient declines and would like to stay with current counselor Denies SI/HI- MH resources including CRISIS provided Support provided Schedule follow up appointment with Neurology Schedule appointment with cardiology due to preeclampsia and hx of hypertension Desires placement of Mirena IUD- order placed RTO 4 weeks for PP / IUD placement Contraception plan: none. Reinforced 6-week pelvic rest. Encouraged condom usage should patient deviate. Kofi Monreal APRN.[facility] 06-17-2024 History of Presen t illness Narrative EARLY VISIT Pablo Alarcon is a 28 year old here for 2 week visit. Primary Section at [facility] for preeclampsia and declarations at 32 weeks gestation. Baby in NICU. Delivery Summary: Micah Alarcon [[id number]] Delivery Information: Delivery Date: 06/02/24 Delivery type: , Low Transverse Delivering Clinician: Jocelyn Jennings MD : Gender: Male Weight (grams): 1510 g One Minute : 8 Five Minute : 9 ROS: General: Denies any fever or chills Hypertension Screening: Headache? No. Visual Changes? No Epigastric Pain? No Increased Swelling? No Taking any BP medications at home? yes If applicable, monitoring BP at home? (If Yes, include results) Yes, 130-140/80-90's Taking Procardia 60 mg XL PO daily Labetalol 200 mg PO TID Mood: stable Depression: yes, depression. Baby in NICU Stated stopped taking Zoloft because it made her feel more anxious and more depressed. Currently seeing counselor with plans to discuss other medication options. Feeding: Breast and bottle feeding problems: None Bladder: No dysuria, gross hematuria, urinary frequency, urinary urgency, or incontinence Bowel symptoms: Negative for abdominal discomfort, blood in stools or black stools and change in bowel habits Abdomen: She reports no incisional redness, tenderness, erythema, pain rated 5 Bleeding: spotting Bottom and Perineum: n/a Sleep: no sleep concerns, does not feel rested [place] since delivery: Not resumed Emotional support: Yes Exercise: N/A Other issues: None SENSITIVE EXAM: Sensitive exam not performed. PHYSICAL EXAMINATION: BP 126/78 Wt 71.9 kg (158 lb 9.6 oz) LMP 10/22/2023 (Approximate) Yes BMI 29.97 kg/m General: pleasant,female in no apparent distress, A&O x 3. Skin warm and intact. Breast: Deferred Abdomen: Deferred /Incision: No incisional redness, swelling, or drainage Pelvic: Deferred Bimanual: Deferred Constantia Depression Scale Total: 19 ASSESSMENT AND PLAN: 28 year old status post CS with normal course. Blood pressures stable- Continue Labetalol 200 mg PO TID and Procardia 60 mg XL PO daily Continue blood pressure monitoring with parameters to report if any >160/110 Continue counseling- Offered consult to [facility]- patient declines and would like to stay with current counselor Denies SI/HI- MH resources including CRISIS provided Support provided Schedule follow up appointment with Neurology Schedule appointment with cardiology due to preeclampsia and hx of hypertension Desires placement of Mirena IUD- order placed RTO 4 weeks for PP / IUD placement Contraception plan: none. Reinforced 6-week pelvic rest. Encouraged condom usage should patient deviate. Kofi Monreal APRN.CNM documented in this encounter [facility] 06-17-2024 Telephone encounter Note Patient called and appointment scheduled. Britney Valdivia RN [facility] 06-17-2024 Miscellaneous Notes Patient called and appointment scheduled. Britney Valdivia RN She can see CP this afternoon and if there is an issue she can grab me. Patient was AT's 11:40 PP. Patient called at 11:45 stating that she was still 10-15 min away. She had to arrange for a cart driver through her insurance. Coming from [place] because her baby is in the NICU. Offered her 2:00 PM with [facility] today, but she has a [place] appointment at that time. Asking if she can be seen around 1:00 PM. No openings with any provider. Patient had Pre E and that's why she was delivered early. Please advise. Jocelyn Silvestre RN documented in this encounter [facility] 06-17-2024 Telephone encounter Note She can see CP this afternoon and if there is an issue she can grab me. [facility] Work Phone: 06-17-2024 Telephone encounter Note Patient was AT's 11:40 PP. Patient called at 11:45 stating that she was still 10-15 min away. She had to arrange for a cart driver through her insurance. Coming from [facility] because her baby is in the NICU. Offered her 2:00 PM with [facility] today, but she has a WIC appointment at that time. Asking if she can be seen around 1:00 PM. No openings with any provider. Patient had Pre E and that's why she was delivered early. Please advise. Jocelyn Silvestre, RN [facility] 06-13-2024 Miscellaneous Notes This note was copied from a baby's chart. To bedside of baby to meet with mother. Mother holding baby while baby receiving tube feeding. Mother reports pumping every 2 hours during the day, finding pumping in the night too difficult. Mother states she gets more milk in the morning than any other time during the day. Encouraged mother to continue to pump as often as she can during the day if she feels she can not pump at night. Reviewed frequency of removal of milk is important to establishing good supply.Mother feels pump settings are comfortablestates she has been in touch with [facility] to get an electric breast pump for home use, states the one she got from her insurance is a wearable breast pump. Encouraged mother to continue to use [employer] hospital grade double electric pump. Pt denies further questions at this time. documented in this encounter [facility] 06-13-2024 Obstetrics Note This note was copied from a baby's chart. To bedside of baby to meet with mother. Mother holding baby while baby receiving tube feeding. Mother reports pumping every 2 hours during the day, finding pumping in the night too difficult. Mother states she gets more milk in the morning than any other time during the day. Encouraged mother to continue to pump as often as she can during the day if she feels she can not pump at night. Reviewed frequency of removal of milk is important to establishing good supply.Mother feels pump settings are comfortablestates she has been in touch with [facility] to get an electric breast pump for home use, states the one she got from her insurance is a wearable breast pump. Encouraged mother to continue to use [employer] hospital grade double electric pump. Pt denies further questions at this time. [facility] 06-11-2024 Miscellaneous Notes This note was copied from a baby's chart. Called to NICU by baby's RN, states baby's Mom has questions about breast pump. Met pt in L&D lobby, she states she got hand pump and does not know how to use it. Walked with pt up to her bonding room for privacy. Pt has Medela hand pump obtained from [facility] because she is hopeful it will help her produce more milk. Set up and demonstrated to patient how to put together and use. Pt expressing no drops of milk when she used hand pump, LC attempted and was able to get milk expressed, demonstrated to patient how to do so. Pt states it is harder than she thought it would be. Pt has concerns about milk supply, discussed pumping method and routine, appears as if pt is pumping frequently enough and using settings on pump appropriately. Offered to observe a pump, pt agreeable. Pt put on Ameda double electric pump, sizing of flange seems appropriate, pt pumped x15 minutes and initiated 2 let downs per LC recommendation and pumped approx less than 1oz total. Discussed diet for , reviewed pt's medications and hx which neither appear be causes of low supply, per pt providing history verbally to LC. Suggested pt see medicine clinic, pt states she has transportation barriers, LC suggested requesting a virtual visit and if she has labs draw, request to have them drawn at [facility] lab. Discussed normal milk volumes by 2 weeks. Provided pt with support and answered questions. documented in this encounter [facility] 06-11-2024 Obstetrics Note This note was copied from a baby's chart. Called to NICU by baby's RN, states baby's Mom has questions about breast pump. Met pt in L&D lobby, she states she got hand pump and does not know how to use it. Walked with pt up to her bonding room for privacy. Pt has Medela hand pump obtained from [facility] because she is hopeful it will help her produce more milk. Set up and demonstrated to patient how to put together and use. Pt expressing no drops of milk when she used hand pump, LC attempted and was able to get milk expressed, demonstrated to patient how to do so. Pt states it is harder than she thought it would be. Pt has concerns about milk supply, discussed pumping method and routine, appears as if pt is pumping frequently enough and using settings on pump appropriately. Offered to observe a pump, pt agreeable. Pt put on Ameda double electric pump, sizing of flange seems appropriate, pt pumped x15 minutes and initiated 2 let downs per LC recommendation and pumped approx less than 1oz total. Discussed diet for , reviewed pt's medications and hx which neither appear be causes of low supply, per pt providing history verbally to LC. Suggested pt see medicine clinic, pt states she has transportation barriers, LC suggested requesting a virtual visit and if she has labs draw, request to have them drawn at [facility] lab. Discussed normal milk volumes by 2 weeks. Provided pt with support and answered questions. [facility] 06-09-2024 Miscellaneous Notes This note was copied from a baby's chart. In mothers bonding room to assess needs. She is pumping every 2-3 hours and expressing 30-40cc at 7 days . She reports she is visiting the baby often in the NICU and plans to put baby to breast when he is able. Reviewed breat pump instructions on use and cleaning. Pablo states I've been worried because I'm at risk for depression and I feel like I need medication. She reports she has been emotional having a baby in the NICU and not seeing her older child at home. Discussed baby blues and depression. Instructed pt to call her follow up OBGYN today to discuss and to go to the ER for thoughts of hurting herself or her baby. Pt denies severe symptoms. Emotional support given. to continue to follow. documented in this encounter [facility] 06-09-2024 Obstetrics Note This note was copied from a baby's chart. In mothers bonding room to assess needs. She is pumping every 2-3 hours and expressing 30-40cc at 7 days . She reports she is visiting the baby often in the NICU and plans to put baby to breast when he is able. Reviewed breat pump instructions on use and cleaning. Pablo states I've been worried because I'm at risk for depression and I feel like I need medication. She reports she has been emotional having a baby in the NICU and not seeing her older child at home. Discussed baby blues and depression. Instructed pt to call her follow up OBGYN today to discuss and to go to the ER for thoughts of hurting herself or her baby. Pt denies severe symptoms. Emotional support given. to continue to follow. [facility] 06-08-2024 Telephone encounter Note Noted thanks [facility] Work Phone: 06-08-2024 Miscellaneous Notes Noted thanks Patient called back and stated that she has to get transportation through insurance and that was the first day they'd be able to bring her for appt. Baby is still in NICU. Patient is checking BP and if needed plans to go to [facility] for evaluation since she is there already. She is not having any headache, vision changes or RUQ pain currently. She is aware appt is recommended for this week and advised if she finds a sooner ride to call back to reschedule appointment. Negar Youssef RN Patient was scheduled by [facility] for 06/17. She is to be scheduled this week though for BP check. Left message for patient to call office to speak to a nurse. Negar Youssef RN Left message for patient to call office. Negar Youssef RN ----- Message from Michele Garland MD sent at 06/08/2024 8:28 AM EST ----- Thank you! Please make sure patient has a blood pressure check this week in our office SW documented in this encounter [facility] 06-08-2024 Telephone encounter Note Patient called back and stated that she has to get transportation through insurance and that was the first day they'd be able to bring her for appt. Baby is still in NICU. Patient is checking BP and if needed plans to go to [facility] for evaluation since she is there already. She is not having any headache, vision changes or RUQ pain currently. She is aware appt is recommended for this week and advised if she finds a sooner ride to call back to reschedule appointment. Negar Youssef RN [facility] 06-08-2024 Note HNO ID: [id number] Author: ИРИНА HENSLEY RN Service: Nursing Author Type: Registered Nurse Type: Progress Notes Filed: 06/08/2024 13:24 Note Text: Discharge instructions given, spent extra time making sure she understood everything and could verbalize an understanding. Bp cuff given, and all info in writing to take and record bp BID and and bp numbers to call Dr with. Pt signed bonding paper, copy given [facility] 06-08-2024 Telephone encounter Note Patient was scheduled by [facility] for 06/17. She is to be scheduled this week though for BP check. Left message for patient to call office to speak to a nurse. Negar Youssef RN [facility] 06-08-2024 Telephone encounter Note Left message for patient to call office. Negar Youssef RN [facility] 06-08-2024 Telephone encounter Note ----- Message from Michele Garland MD sent at 06/08/2024 8:28 AM EST ----- Thank you! Please make sure patient has a blood pressure check this week in our office SW [facility] 06-08-2024 Note HNO ID: [id number] Author: NANCY HILARIO MD Service: Obstetrics Author Type: Resident Type: Progress Notes Filed: 06/08/2024 08:35 Note Text: Attestation signed by Nancy Hilario MD at 06/08/2024 8:35 AM I saw and evaluated the patient. Discussed with the resident and agree with resident's findings and plan as documented in the resident's note. One isolated severe overnight repeat mild range will d/c with home monitoring and close f/u.Nancy Hilario MD OBSTETRICS PROGRESS NOTE SERVICE DATE: June 08, 2024 SERVICE TIME: 4:52 AM 28 year old female who is Postoperative Day #6 status post , Low Transverse delivery with male . Assessment AND Plan state Routine post-operative and post- care Meeting milestones: ambulating, voiding with adequate urine output, passing flatus without difficulty, pain adequately controlled on current pain regimen Hgb: Pre-op 9.8 > QBL 516 > post-op 9.1 Discharge per primary OBGYN Anticipate discharge POD #6 Chronic hypertension with superimposed pre-eclampsia - Admitted from OSH with concerns for SIPEw/o exacerbation vs. SIPEw/, now meeting criteria at 32w for SIPEw/ with pulmonary edema on CXR - Prior to admission, was acutely treated with Labetalol 20, started on Mag, given rescue steroids, and transferred to [facility] - S/p magnesium for seizure prophylaxis - Magnesium level supra therapeutic at 9.7 > discontinued > 9 > 7 - Maintenance meds: Labetalol 800mg TID (inc 06/05), Procardia 60 BID - S/p acute treatment with procardia 04/26 (06/05) - Cr elevated 06/03 1.16 > 1.34 > 0.95 06/04 - Will continue to monitor blood pressures - blood pressures over past 24 hours normal to low mild range Neurofibromatosis, type 1 (von Recklinghausen's disease) (HCC) - Follows with Neurologist, Dr. 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 No associated enhancement or pathologic parenchymal or leptomeningeal enhancement elsewhere in brain, right optic nerve, optic chiasm and optic tracts appear within normal limits - No indication for Neuro consult at this time Learning disability - Patient with significant learning disability and unable to read - Difficult for patient to recall medical history, medication management, and diagnoses History of seizures - Upon chart review, patient on Keppra - Unclear dosing as multiple different documented in chart and patient unsure of dose - Keppra 1000mg at bedtime - Per patient, last seizure several years ago History of nicotine vaping - Stopped at 25 weeks Anxiety and depression - Previously on Zoloft 50, self-discontinued in Arnold-Chiari malformation (HCC) - Noted upon chart review - Patient unable to provide any additional information Rubella non-immune status, antepartum - MMR vaccine Asthma - Well controlled without medications Plan of care discussed with: Provider, RN, Patient. Anticipate discharge day: POD 6 Subjective Patient has no current complaints. Tolerating PO intake. Urinating without difficulty. Passing flatus. Pain well controlled with current regimen. Lochia decreasing. Ambulating without difficulty. Denies MADRID, chest pain, SOB. Objective PHYSICAL EXAM: Heart: RR Lungs: Non-labored breathing on room air Abdomen: Soft Fundus firm below umbilicus Non-distended Incision: Transverse incision C/D/I with steri-strips. LAST VITALS: Pulse BP Resp O2 Sat Temp Pain 76 120/70 16 99 % 36.8 ?C (98.2 ?F) 5 Avg Min Max Vitals (last 12 hours) Flowsheet Row Name Average Min Max BP: Systolic 142.63 120 166 BP: Diastolic 89.88 70 103 Temp 36.8 ?C (98.3 ?F) 36.8 ?C (98.2 ?F) 36.9 ?C (98.4 ?F) Pulse 81 76 87 Resp 17.43 16 18 SpO2 98.83 % 98 % 99 % HT/WT/BMI: Height Weight BMI 154.9 cm (5' 1) 80.3 kg (177 lb) 33.44 LABS ABO/RH: 05/30/2024: A; Positive RUBELLA: 01/29/2024: 8 HANDH: Hematocrit (%) Date Value 06/03/2024 28.5 06/02/2024 30.6 06/01/2024 27.7 05/31/2024 30.0 Hemoglobin (g/dL) Date Value 06/03/2024 9.1 06/02/2024 9.8 06/01/2024 8.7 05/31/2024 9.5 Diagnostic tests reviewed for today's visit: No new labs SIGNATURE: Delmis Bills DO PATIENT NAME: Pablo Alarcon DATE: June 08, 2024 TIME: 4:52 AM [facility] 06-07-2024 Note HNO ID: [id number] Author: LIZZETTE HUBER DO Service: Obstetrics Author Type: Resident Type: Progress Notes Filed: 06/07/2024 23:43 Note Text: Plan of care note Resident notified via first call OB pager #[phone] for high BP 150/95 at 2303. The resident was notified at 1210 of this blood pressure. Patient was asymptomatic (Denies chest pain, SOB, headache, vision changes, RUQ pain) and did not have complaints. She was supposed to be discharged to home but a last minute vital check was performed by the RN. However, after discussing further with Halima Becker RN, Halima said that the patient was talking and and actually had a severe BP of 166/103 at 2254 and RN rechecked her BP five minutes later which was the 150/95. Asked RN if she thought the severe BP was thought to be real and she replied yes. Asked severe BP to be validated in her chart and because this time had passed that would need to recheck her severe BP (repeat is recommended at 15 minutes after). Patient is currently at the special care nursery and was told to come back at 2330. RN states that plan is to recheck her BP after she returns from special care nursery and sits down/calm for 10 minutes for a repeat check at 2340. RN to notify of repeat BP within the one hour of the severe BP to see if this needs to be acutely treated. If acute treatment is required, will treat acutely and add lisinopril 5 mg to her maintenance regimen as discussed with prior day team. Patient Vitals for the past 24 hrs: BP Temp Temp src Pulse Resp SpO2 06/07/24 2303 150/95 36.9 ?C (98.4 ?F) Oral 81 18 99 % 06/07/24 2254 (!) 166/103 -- -- 85 18 99 % 06/07/24 2203 144/88 -- -- 78 -- -- 06/07/24 2201 144/88 -- -- 78 18 98 % 06/07/24 2058 147/90 36.8 ?C (98.2 ?F) Oral 78 18 99 % 06/07/24 1915 123/98 36.9 ?C (98.4 ?F) Oral 85 16 99 % 06/07/24 1132 136/82 36.9 ?C (98.4 ?F) Oral 93 14 99 % 06/07/24 0748 116/64 36.9 ?C (98.4 ?F) Oral 80 16 98 % 06/07/24 0608 128/75 -- -- 86 -- -- 06/07/24 0605 128/75 -- -- 85 18 97 % 06/07/24 0208 121/73 36.9 ?C (98.4 ?F) Oral 86 19 98 % Lizzette Huber DO [facility] [employer], PGY-4 DATE: June 07, 2024 TIME: 11:35 PM ------ UPDATE: Repeat BP 147/87. Will continue current maintenance regimen and monitor vitals. Keep inpatient until tomorrow AM rounding team. Patient Vitals for the past 24 hrs: BP Temp Temp src Pulse Resp SpO2 06/07/24 2339 147/87 -- -- 87 -- 99 % 06/07/24 2303 150/95 36.9 ?C (98.4 ?F) Oral 81 18 99 % 06/07/24 2254 (!) 166/103 -- -- 85 18 99 % 06/07/24 2203 144/88 -- -- 78 -- -- 06/07/241 144/88 -- -- 78 18 98 % 06/07/24 2058 147/90 36.8 ?C (98.2 ?F) Oral 78 18 99 % 06/07/24 1915 123/98 36.9 ?C (98.4 ?F) Oral 85 16 99 % 06/07/24 1132 136/82 36.9 ?C (98.4 ?F) Oral 93 14 99 % 06/07/24 0748 116/64 36.9 ?C (98.4 ?F) Oral 80 16 98 % 06/07/24 0608 128/75 -- -- 86 -- -- 06/07/24 0605 128/75 -- -- 85 18 97 % 06/07/24 0208 121/73 36.9 ?C (98.4 ?F) Oral 86 19 98 % Lizzette Huber DO [facility] [employer], PGY-4 DATE: June 07, 2024 TIME: 11:43 PM [facility] 06-07-2024 Note HNO ID: [id number] Author: TANJA MOSHER DO Service: Obstetrics Author Type: Resident Type: Progress Notes Filed: 06/07/2024 08:09 Note Text: Attestation signed by Tanja Mosher DO at 06/07/2024 8:09 AM I saw and evaluated the patient. Discussed with the resident and agree with resident's findings and plan as documented in the resident's note. Patient is a 28 yo POD #5 s/p . Patient is medically complicated by DEBBIE with S/F, Neurofibromatosis, h/o seizures, Arnold Chiari malformation, rubella non-immune status, and asthma. - Patient doing well without complaints - VSS, bleeding well controlled - PPBC: PP IUD - breast and bottle feeding - DEBBIE w/ SF: Bps stable at 120s/70s on Labetalol 800 TID and Procardia 60 BID. S/p mag sulfate x24 hours PP. Denies MADRID, vision changes or RUQ pain. - Neurofibromatosis: following with neurology, stable at this time - h/o Seizures: Currently stable on Keppra 1000 mg daily - Arnold Chiari malformation: stable at this time - Rubella Non-immune: for vaccination PP - Asthma: stable with rare albuterol use Patient stable for d/c home today. Tanja Mosher DO OBSTETRICS PROGRESS NOTE SERVICE DATE: June 07, 2024 SERVICE TIME: 4:11 AM 28 year old female who is Day #5 status post , Low Transverse delivery with male . Assessment AND Plan state Routine post-operative and post- care Meeting milestones: ambulating, voiding with adequate urine output, passing flatus without difficulty, pain adequately controlled on current pain regimen Hgb: Pre-op 9.8 > QBL 516 > post-op 9.1 Discharge per primary OBGYN Anticipate discharge POD #5 Chronic hypertension with superimposed pre-eclampsia - Admitted from OSH with concerns for SIPEw/o exacerbation vs. SIPEw/, now meeting criteria at 32w for SIPEw/ with pulmonary edema on CXR - Prior to admission, was acutely treated with Labetalol 20, started on Mag, given rescue steroids, and transferred to [facility] - S/p magnesium for seizure prophylaxis - Magnesium level supra therapeutic at 9.7 > discontinued > 9 > 7 - Maintenance meds: Labetalol 800mg TID (inc 06/05), Procardia 60 BID - S/p acute treatment with procardia 04/26 (06/05) - Cr elevated 06/03 1.16 > 1.34 > 0.95 06/04 - Will continue to monitor blood pressures - blood pressures over past 24 hours normal to low mild range Neurofibromatosis, type 1 (von Recklinghausen's disease) (HCC) - Follows with Neurologist, Dr. 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 No associated enhancement or pathologic parenchymal or leptomeningeal enhancement elsewhere in brain, right optic nerve, optic chiasm and optic tracts appear within normal limits - No indication for Neuro consult at this time Learning disability - Patient with significant learning disability and unable to read - Difficult for patient to recall medical history, medication management, and diagnoses History of seizures - Upon chart review, patient on Keppra - Unclear dosing as multiple different documented in chart and patient unsure of dose - Keppra 1000mg at bedtime - Per patient, last seizure several years ago History of nicotine vaping - Stopped at 25 weeks Anxiety and depression - Previously on Zoloft 50, self-discontinued in Arnold-Chiari malformation (HCC) - Noted upon chart review - Patient unable to provide any additional information Rubella non-immune status, antepartum - MMR vaccine Asthma - Well controlled without medications Subjective Patient seen and examined at bedside with partner present. Reports that she is feeling some abdominal pain with some movements but otherwise doing well and denies additional concerns. Tolerating PO intake. Urinating without difficulty. Passing flatus. Has had bowel movement. Pain well controlled with current regimen. Lochia decreasing. Ambulating without difficulty. Denies headache, visual changes, right upper quadrant abdominal pain, chest pain, shortness of breath, or worsening edema. Reports her baby is doing well and is feeding well. Objective PHYSICAL EXAM: Heart: Regular rate, warm and well perfused Lungs: Normal respiratory effort Abdomen: Soft, appropriately tender, fundus firm below level of umbilicus, non-distended Incision: Transverse incision clean, dry, intact with steri-s (more content not included)... [facility] 06-06-2024 Note HNO ID: [id number] Author: AMADA SANCHEZ MD Service: Obstetrics Author Type: Resident Type: Progress Notes Filed: 06/06/2024 11:31 Note Text: Attestation signed by Amada Sanchez MD at 06/06/2024 11:31 AM Attending Note I personally saw and examined the patient. I reviewed the resident's note. I agree with the resident's assessment and plan unless otherwise noted. DEBBIE: - Pulmonary HTN: dx via CXR on 06/02. Symptoms have resolved since delivery. Normal O2 sats. - Blood pressure: She was on Labetalol 600 mg TID and Procardia 60 XR BID prior to delivery. Increased labetalol to 800 mg TID yesterday d/t SRBPs. - BRUCE: resolved Hx of Seizures: Cont Kepra 1000 mg once daily NFT1: MRIs obtained while IP for neuraxial purposes. No acute findings. F/u with alma as outpatient. The patient and her partner are very nervous about Pablo's blood pressures. Baby is in the NICU here. They desire discharge tomorrow AM which is reasonable. Signature: Amada Sanchez MD Date: 06/06/2024 Time: 11:28 AM OBSTETRICS PROGRESS NOTE SERVICE DATE: June 06, 2024 SERVICE TIME: 3:55 AM 28 year old female who is Day #4 status post , Low Transverse delivery with male . Assessment AND Plan state Routine post-operative and post- care Meeting milestones: ambulating, voiding with adequate UOP, passing flatus without difficulty, pain adequately controlled on current pain regimen Hgb: Pre-op 9.8 > QBL 516 > post-op 9.1 Discharge per primary OBGYN Anticipate discharge POD #4-5 Chronic hypertension with superimposed pre-eclampsia - Admitted from OSH with concerns for SIPEw/o exacerbation vs. SIPEw/, now meeting criteria at 32w for SIPEw/ with pulmonary edema on CXR - Prior to admission, was acutely treated with Labetalol 20, started on Mag, given rescue steroids, and transferred to [facility] - Started on magnesium 6 g bolus, 2g/hr hour infusion for seizure prophylaxis - Magnesium level supra therapeutic >9.7, discontinued, 4 hour repeat magnesium > 9 repeat, four hours later 7 - S/p magnesium - Maintenance meds: Labetalol 800mg TID (inc 06/05), Procardia 60 BID - S/p acute treatment with procardia 04/26 (06/05) - Cr elevated 06/03 1.16 > 1.34 > 0.95 06/04 - Will continue to monitor blood pressures Neurofibromatosis, type 1 (von Recklinghausen's disease) (HCC) - Follows with Neurologist, Dr. 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 No associated enhancement or pathologic parenchymal or leptomeningeal enhancement elsewhere in brain, right optic nerve, optic chiasm and optic tracts appear within normal limits - No indication for Neuro consult at this time Learning disability - Patient with significant learning disability and unable to read - Difficult for patient to recall medical history, medication management, and diagnoses History of seizures - Upon chart review, patient on Keppra - Unclear dosing as multiple different documented in chart and patient unsure of dose - Keppra 1000mg at bedtime - Per patient, last seizure several years ago History of nicotine vaping - Stopped at 25 weeks Anxiety and depression - Previously on Zoloft 50, self-discontinued in Arnold-Chiari malformation (HCC) - Noted upon chart review - Patient unable to provide any additional information Rubella non-immune status, antepartum - MMR vaccine Asthma - Well controlled without medications Hypertension complicating , delivered, current hospitalization Subjective Patient has no current complaints. Tolerating PO intake. Urinating without difficulty. Passing flatus. Pain well controlled with current regimen. Lochia decreasing. Ambulating without difficulty. Denies headache, vision change, chest pain, shortness of breath or RUQ pain. Objective PHYSICAL EXAM: Heart: RR, no murmur, warm and well perfused Lungs: normal respiratory effort on room air, CTAB Abdomen: Soft, Fundus firm below umbilicus, non-distended Incision: Transverse incision C/D/I with steri-strips. Extremities: No calf tenderness and trace edema LAST VITALS: Pulse BP Resp O2 Sat Temp Pain 80 135/91 18 99 % 36.9 ?C (98.4 ?F) 0 (pt sleeping) Avg Min Max Vitals (last 12 hours) Flowsheet Row Name Average Min Max BP: Systolic 148.80 111 171 BP: Diastolic 92.55 74 110 Temp 36.9 ?C (98.4 ?F) 36.9 ?C (9 (more content not included)... [facility] 06-05-2024 Note HNO ID: [id number] Author: GILLIAN PERKINS MD Service: Obstetrics Author Type: Resident Type: Progress Notes Filed: 06/05/2024 21:32 Note Text: S: Notified by RN of persistently severe range blood pressures. RN notified team of high BP's per other resident and asked to administer evening Procardia XL 60mg, which was given. Per RN, repeat BP's remained elevated, upon chart review by this resident, noted to be severe range with initial page. Denies headache, vision changes, chest pain, shortness of breath, and right upper quadrant pain. O: Patient Vitals for the past 24 hrs: BP 06/05/24 2019 (!) 171/93 06/05/241957 (!) 167/93 06/05/241954 (!) 170/88 06/05/241939 (!) 167/104 06/05/24 1518 146/92 06/05/24 1043 124/73 06/05/24 0731 149/89 06/05/24 0306 127/70 06/05/24 0120 157/109 06/04/242122 141/98 06/04/242121 141/98 General: No acute distress, patient appears comfortable Heart: Well perfused peripherally, regular rate, no murmurs/rubs/gallops Respiratory: Nonlabored breathing on room air, CTAB Abdomen: Soft, nontender Psych: Appropriate mood and affect Extremities: No calf tenderness, 1+edema Neuro: patellar reflex 2+, no clonus A/P: #SIPEw/ - 10mg Procardia IR administered at 2027, awaiting 20min repeat BP - RN inserting IV now - Asymptomatic - S/p magnesium - Maintenance : Procardia XL 60mg BID, Labetalol 600mg TID - Evening maintenance procardia and labetalol administered - Will increase Labetalol to 800mg TID, additional 200mg ordered to make evening dose 800mg Dr. Howard notified Gillian Perkins MD Pager #[phone] [employer] Resident PGY-2 06/05/2024 8:36 PM Update 2056: Repeat BP after acute tx 168/92 Will administer Procardia IR 20mg and repeat BP in 20 min Gillian Perkins MD [employer] PGY-2 Update 2130: Repeat BP after acute tx 155/95 Will check BP's per protocol and continue to monitor closely. Gillian Perkins MD [employer] PGY-2 [facility] 06-05-2024 Note HNO ID: [id number] Author: RAHEEM HOWARD DO Service: Obstetrics Author Type: Physician Type: Progress Notes Filed: 06/05/2024 16:32 Note Text: OBSTETRICS PROGRESS NOTE SERVICE DATE: June 05, 2024 SERVICE TIME: 5:42 AM 28 year old female who is Postoperative Day #3 status post , Low Transverse delivery with male . Assessment AND Plan state Routine post-operative and post- care Meeting milestones: ambulating, voiding with adequate UOP, passing flatus without difficulty, pain adequately controlled on current pain regimen Hgb: Pre-op 9.8 > QBL 516 > post-op 9.1 Discharge per primary OBGYN Anticipate discharge POD #2-3 Chronic hypertension with superimposed pre-eclampsia - Admitted from OSH with concerns for SIPEw/o exacerbation vs. SIPEw/, now meeting criteria at 32w for SIPEw/ with pulmonary edema on CXR - Prior to admission, was acutely treated with Labetalol 20, started on Mag, given rescue steroids, and transferred to [facility] - Started on magnesium 6 g bolus, 2g/hr hour infusion for seizure prophylaxis - Magnesium level supra therapeutic >9.7, discontinued, 4 hour repeat magnesium > 9 repeat, four hours later 7 - S/p magnesium - Maintenance meds: Labetalol 600mg TID (held 06/03 PM for low BP and restarted 06/05 due to high mild pressures), Procardia 60 BID - Cr elevated 06/03 1.16 > 1.34 > 0.95 06/04 - Will continue to monitor blood pressures Neurofibromatosis, type 1 (von Recklinghausen's disease) (HCC) - Follows with Neurologist, Dr. 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 No associated enhancement or pathologic parenchymal or leptomeningeal enhancement elsewhere in brain, right optic nerve, optic chiasm and optic tracts appear within normal limits - No indication for Neuro consult at this time Learning disability - Patient with significant learning disability and unable to read - Difficult for patient to recall medical history, medication management, and diagnoses History of seizures - Upon chart review, patient on Keppra - Unclear dosing as multiple different documented in chart and patient unsure of dose - Keppra 500mg BID ordered - Will plan to further investigate accurate dosing - Per patient, last seizure several years ago History of nicotine vaping - Stopped at 25 weeks Anxiety and depression - Previously on Zoloft 50, self-discontinued in Arnold-Chiari malformation (HCC) - Noted upon chart review - Patient unable to provide any additional information Rubella non-immune status, antepartum - MMR vaccine Asthma - Well controlled without medications Plan of care discussed with: Provider, RN, Patient. Anticipate discharge day: POD #3-4 Subjective Patient has no current complaints. Urinating without difficulty. Passing flatus. Pain well controlled with current regimen. Lochia decreasing. Ambulating without difficulty. Patient reports low appetite but she is eating okay. She is continuing to try to pump. Objective PHYSICAL EXAM: Heart: RR Lungs: Non-labored breathing on room air Abdomen: Soft Fundus firm below umbilicus Non-distended Incision: Transverse incision C/D/I with steri-strips. LAST VITALS: Pulse BP Resp O2 Sat Temp Pain 92 127/70 16 98 % 37.1 ?C (98.8 ?F) 0 (patient sleeping) Avg Min Max Vitals (last 12 hours) Flowsheet Row Name Average Min Max BP: Systolic 145 127 159 BP: Diastolic 94.60 70 109 Temp 37.2 ?C (98.97 ?F) 37.1 ?C (98.8 ?F) 37.3 ?C (99.1 ?F) Pulse 100 92 110 Resp 16.5 16 18 SpO2 96.8 % 96 % 98 % HT/WT/BMI: Height Weight BMI 154.9 cm (5' 1) 80.3 kg (177 lb) 33.44 LABS ABO/RH: 05/30/2024: A; Positive RUBELLA: 01/29/2024: 8 HANDH: Hematocrit (%) Date Value 06/03/2024 28.5 06/02/2024 30.6 06/01/2024 27.7 05/31/2024 30.0 Hemoglobin (g/dL) Date Value 06/03/2024 9.1 06/02/2024 9.8 06/01/2024 8.7 05/31/2024 9.5 Diagnostic tests reviewed for today's visit: Most recent labs SIGNATURE: Delmis Bills DO PATIENT NAME: Pablo Alarcon DATE: June 05, 2024 TIME: 5:42 AM I saw and evaluated the patient. Discussed with the resident and agree with resident's findings and plan as documented in the resident's note. 06/04/24212206/05/24 0120 06/05/24 0306 06/05/24 0731 BP: 141/98 157/109 127/70 149/89 Pulse: 100 98 92 82 Resp: 18 16 16 16 Temp: 37.2 ?C (99 ?F) 37.1 ?C (98.8 ?F) 36.7 ?C (98.1 ?F) TempSrc: Oral Oral Oral Oral SpO2: 96% 97% 98% 97% Weight: Height: Hgb appropriate (more content not included)... [facility] 06-04-2024 Note HNO ID: [id number] Author: AMADA SANCHEZ MD Service: Obstetrics Author Type: Resident Type: Progress Notes Filed: 06/04/2024 12:18 Note Text: Attestation signed by Amada Sanchez MD at 06/04/2024 12:18 PM Attending Note I personally saw and examined the patient. I reviewed the resident's note. I agree with the resident's assessment and plan unless otherwise noted. Patient was a M CECILE for cHTN with DEBBIE. She met criteria for SF with pulmonary edema and was then delivered by [facility]. M was consulted again for BRUCE and mag toxicity. They signed off on POD#1. Overall doing well this AM. Baby in NICU. 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 DEBBIE: - Pulmonary HTN: dx via CXR on 06/02. Symptoms have resolved since delivery. Normal O2 sats. - Blood pressure: She was on Labetalol 600 mg TID and Procardia 60 XR BID prior to delivery. Labetalol discontinued given normal BP . Will continue Nifepdine for now with hold parameters, can down titrate as needed. - BRUCE: Creat continues to inc from 1.16 yesterday to 1.34 this AM. UOP adequate. Repeat lab this afternoon. If not improving, will order FENa. - S/p mag. Discontinued early d/t supratherapuetic levels. Downtrended appropriately and patient is asymptomatic. Hx of Seizures: Cont Kepra 1000 mg once daily NFT1: MRIs obtained while IP for neuraxial purposes. No acute findings. F/u with neruo as outpatient Anticipate DC POD#3 pending BP, BRUCE etc. Signature: Amada Sanchez MD Date: 06/04/2024 Time: 12:00 PM OBSTETRICS PROGRESS NOTE SERVICE DATE: June 04, 2024 SERVICE TIME: 5:23 AM 28 year old female who is Postoperative Day #2 status post , Low Transverse delivery with male . Assessment AND Plan state Routine post-operative and post- care Meeting milestones: ambulating, voiding with adequate UOP, passing flatus without difficulty, pain adequately controlled on current pain regimen - Monitor diarrhea at this time Hgb: Pre-op 9.8 > QBL 516 > post-op 9.1 Discharge per primary OBGYN Anticipate discharge POD #2-3 Chronic hypertension with superimposed pre-eclampsia - Admitted from OSH with concerns for SIPEw/o exacerbation vs. SIPEw/, now meeting criteria at 32w for SIPEw/ with pulmonary edema on CXR - Prior to admission, was acutely treated with Labetalol 20, started on Mag, given rescue steroids, and transferred to [facility] - Started on magnesium 6 g bolus, 2g/hr hour infusion for seizure prophylaxis - Magnesium level supra therapeutic >9.7, discontinued, 4 hour repeat magnesium > 9 repeat, four hours later 7 - S/p magnesium - Maintenance meds: Labetalol 600mg TID (held 11/ PM for low BP), Procardia 60 BID - Will continue to monitor blood pressures Neurofibromatosis, type 1 (von Recklinghausen's disease) (HCC) - Follows with Neurologist, Dr. 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 No associated enhancement or pathologic parenchymal or leptomeningeal enhancement elsewhere in brain, right optic nerve, optic chiasm and optic tracts appear within normal limits - No indication for Neuro consult at this time Learning disability - Patient with significant learning disability and unable to read - Difficult for patient to recall medical history, medication management, and diagnoses History of seizures - Upon chart review, patient on Keppra - Unclear dosing as multiple different documented in chart and patient unsure of dose - Keppra 500mg BID ordered - Will plan to further investigate accurate dosing - Per patient, last seizure several years ago History of nicotine vaping - Stopped at 25 weeks Anxiety and depression - Previously on Zoloft 50, self-discontinued in Arnold-Chiari malformation (HCC) - Noted upon chart review - Patient unable to provide any additional information Rubella non-immune status, antepartum - MMR vaccine Asthma - Well controlled without medications Plan of care discussed with: Provider, RN, Patient. Anticipate discharge day: POD #3-4 Subjective Paged by RN in regards to patient having to episodes of stooling without making it to the toilet and patient bumping her head on the sink while trying to clean up. Patient reports that she was lying in bed and felt the small urge to pass flatus and ended up having (more content not included)... [facility] 06-04-2024 Note HNO ID: [id number] Author: KVNG THORPE DO Service: Obstetrics Author Type: Resident Type: Plan of Care Filed: 06/04/2024 00:07 Note Text: Paged by RN regarding giving Procardia and Labetalol in the setting of BP's throughout the day being 100's/60's. Will continue Procardia and hold Labetalol at this time. Discussed this with Dr. Maradiaga, who agrees with plan. Will continue to monitor BP per protocol. Kvng VeeIla, 12:07 AM [facility] 06-03-2024 Note HNO ID: [id number] Author: GHADA CASIANO MD Service: Maternal Medicine Author Type: Resident Type: Progress Notes Filed: 06/03/2024 09:47 Note Text: Reviewed patient's recent labs and magnesium level. Magnesium level was reported as >9.7 for AM lab draw at 0537. Magnesium 2 g/hr infusion was stopped. Called lab to discuss result. Per lab, 9.7 is upper limit of lab and cannot report exact value. Magnesium level now decreased to 9.0. LDH was ordered in setting of elevated LFTs. Result 315. No concern for HELLP syndrome at this time in setting of normal platelets and LDH <600. Cr was elevated at 1.16. Urine output per Christensen catheter remains adequate. Will plan for AM BMP to assess kidney function. Can remove Christensen catheter. Reviewed patient's recent blood pressures, has been normotensive: BP 06/03/24 0816 105/60 06/03/24 0630 117/67 06/03/24 0530 104/67 06/03/24 0430 104/67 06/03/24 0330 106/[address] Hidalgo this morning, patient appeared well and without concerns. Given improvement in magnesium level, will allow for patient to visit her baby in NICU via wheelchair assistance. Will plan for repeat magnesium level in 4 hours, ordered to be drawn at 1215. Patient will plan to return to her room for blood draw at that time. Discussed with Dr. Hidalgo Mike attending. Updated patient's primary RN Valarie Martinez. Ghada Casiano MD OBGYN PGY-2 June 03, 2024 9:27 AM [facility] 06-03-2024 Note HNO ID: [id number] Author: GABRIEL JOYNER LISW Service: Care Management Author Type: Talent Assistant Type: Care Mgt Initial Assessment Filed: 06/03/2024 11:04 Note Text: SOCIAL WORK INITIAL ASSESSMENT SERVICE DATE: 06/03/2024 SERVICE TIME: 10:44 AM : 06/02/24 Delivery Mode: Weight: 3 lbs 5.3 oz Gestational Age: 32 weeks 0 days Comb Winder: MOTHER Name: Pablo Alarcon Age: 28 years old Marital Status: Partner's Name: Geo Teixeira, Involved: Yes , MOTHER'S MEDICAL HISTORY Care: Yes Control Discussed: No MENTAL HEALTH/SUBSTANCE ABUSE HISTORY Anxiety and Depression LIVING SITUATION Home: Lives with FOB, FOB's mother. Social Supports: Family Support, patient and FOB report Insurance/Community Resources Currently in Place: Medicaid Employment/School: Patient is on disability. FOB works at [employer]. 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 MONTSE met with patient and FOB at bedside. Patient reports she has a car seat, pack and play, and baby supplies. Patient reports she lives with FOB Geo and FOB's mother, Emmanuelle Teixeira. Patient and FOB denied concerns about food, housing and transportation. Patient states she knows where the food pantries are and also receives SNAP benefits. Patient uses taxi vouchers and insurance transportation benefits. Patient receives disability benefits and does not work. FOB works for [employer]. Patient endorsed history of anxiety and depression - sees counselor Blanca and caser in [place] at [facility]. Patient states symptoms are well-controlled. Patient was prescribed xanax for anxiety but stopped taking it when she learned she was . Patient is planning to speak with her doctor about safe anxiety medication for . Patient endorsed history with Children's Services. Patient states her older son, Donte, age 9, is in the custody of her grandparents. Patient reports Donte's father was on meth real bad which was the reason for the agency's involvement. Patient reports she regularly visits with Donte and that he came to the hospital yesterday to visit. MONTSE called [facility] to report concerns about CSB history and patient and FOB's intellectual disabilities. Spoke with Chelita at 10:36 am on 06/03/24. Chelita indicated a worker will come to the hospital later today to meet with the family. Social Work to remain available as needed. This worker's name and phone number given and resources given as needed. SIGNATURE: VIOLET [facility] PATIENT NAME: Pablo Alarcon DATE: June 03, 2024 TIME: 8:12 AM PAGER/CONTACT #: [phone] [facility] 06-03-2024 Note HNO ID: [id number] Author: ABELARDO HIDALGO MD Service: Maternal Medicine Author Type: Resident Type: Progress Notes Filed: 06/03/2024 12:46 Note Text: Attestation signed by Abelardo Hidalgo MD at 06/03/2024 12:46 PM Attending Note I evaluated the patient and personally participated in the martinez components. I agree with the resident's findings and plan as documented and have discussed the case and management of the patient's care with the resident. Doing well . Mag off as it was supra therapeutic this morning. Patient awake and alert and anxious to visit baby. OK after repeat labs. Satting well on room air, even when sleeping. Signature: Dr. Abelardo Hidalgo MD Date: June 03, 2024 Time: 12:45 PM OBSTETRICS PROGRESS NOTE SERVICE DATE: June 03, 2024 SERVICE TIME: 8:02 AM 28 year old female who is Postoperative Day #1 status post , Low Transverse delivery with male . [facility] consulted in setting of worsening superimposed pre eclampsia with severe features, supra therapeutic magnesium level. Assessment AND Plan Chronic hypertension with superimposed pre-eclampsia - Admitted from OSH with concerns for SIPEw/o exacerbation vs. SIPEw/, now meeting criteria at 32w for SIPEw/ with pulmonary edema on CXR - Prior to admission, was acutely treated with Labetalol 20, started on Mag, given rescue steroids, and transferred to [facility] - Started on magnesium 6 g bolus, 2g/hr hour infusion for seizure prophylaxis - Magnesium level supra therapeutic >9.7, magnesium discontinued - Discussed with Dr. Jennings attending - will transfer care to [facility] service and round with Dr. Hidalgo this morning - Now with elevated AST/ALT 74/50 - LDH and repeat magnesium level ordered - At this time, no diagnosis of HELLP as normal platelets - Maintenance meds: Labetalol 600mg TID, Procardia 60 BID - Will continue to monitor blood pressures state Routine post-operative and post- care Meeting milestones: Bonding with baby, ambulating, Christensen in place, passing flatus without difficulty, pain adequately controlled on current pain regimen Hgb: Pre-op 9.8 > QBL 516 > post-op 9.1 Anticipate discharge POD #2-3 Neurofibromatosis, type 1 (von Recklinghausen's disease) (HCC) - Follows with Neurologist, Dr. 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 No associated enhancement or pathologic parenchymal or leptomeningeal enhancement elsewhere in brain, right optic nerve, optic chiasm and optic tracts appear within normal limits - No indication for Neuro consult at this time Learning disability - Patient with significant learning disability and unable to read - Difficult for patient to recall medical history, medication management, and diagnoses History of seizures - Upon chart review, patient on Keppra - Unclear dosing as multiple different documented in chart and patient unsure of dose - Keppra 500mg BID ordered - Per patient, last seizure several years ago Anxiety and depression - Previously on Zoloft 50, self-discontinued in Arnold-Chiari malformation (HCC) - Noted upon chart review - Patient unable to provide any additional information - Planning for anesthesia consult in 3rd trimester Rubella non-immune status, antepartum - MMR vaccine Asthma - Well controlled without medications History of nicotine vaping - Stopped at 25 weeks Subjective Patient seen and examined at bedside with partner present. Reports feeling tired but otherwise doing well and denies additional concerns. Tolerating PO intake. Urinating without difficulty. Passing flatus. Pain well controlled with current regimen. Lochia decreasing. Ambulating without difficulty. Objective PHYSICAL EXAM: Heart: Regular rate, warm and well perfused Lungs: Normal respiratory effort Abdomen: Soft, appropriately tender, fundus firm belwo level of umbilicus, non-distended Incision: Transverse incision clean, dry, intact with steri-strips Extremities: No calf tenderness or edema, DTR 1+ LAST VITALS: Pulse BP Resp O2 Sat Temp Pain 70 117/67 16 93 % 36.8 ?C (98.2 ?F) 4 Avg Min Max Vitals (last 12 hours) Flowsheet Row Name Average Min Max BP: Systolic 114.45 104 134 BP: Diastolic 71.18 63 84 Temp 36.8 ?C (98.25 ?F) 36.5 ?C (97.7 ?F) 37 ?C (98.6 ?F) Pulse 76.45 70 82 Resp 16.67 16 18 SpO2 93 (more content not included)... [facility] 06-03-2024 Note HNO ID: [id number] Author: GHADA CASIANO MD Service: Obstetrics Author Type: Resident Type: Progress Notes Filed: 06/03/2024 06:31 Note Text: OBSTETRICS PROGRESS NOTE SERVICE DATE: June 03, 2024 SERVICE TIME: 6:27 AM 28 year old female who is Postoperative Day #1 status post , Low Transverse delivery with male . Assessment AND Plan state Routine post-operative and post- care Meeting milestones: Bonding with baby, ambulating, Christensen in place, passing flatus without difficulty, pain adequately controlled on current pain regimen Hgb: Pre-op 9.8 > QBL 516 > post-op 9.1 Discharge per primary OBGYN Anticipate discharge POD #2-3 Chronic hypertension with superimposed pre-eclampsia - Admitted from OSH with concerns for SIPEw/o exacerbation vs. SIPEw/, now meeting criteria at 32w for SIPEw/ with pulmonary edema on CXR - Prior to admission, was acutely treated with Labetalol 20, started on Mag, given rescue steroids, and transferred to [facility] - Started on magnesium 6 g bolus, 2g/hr hour infusion for seizure prophylaxis - Magnesium level supra therapeutic >9.7, will discontinue magnesium now and order stat CMP to evaluate Cr - Discussed with Dr. Jennings attending - Plan to discuss with Dr. Tawny RUIZ attending - Maintenance meds: Labetalol 600mg TID, Procardia 60 BID - Will continue to monitor blood pressures Neurofibromatosis, type 1 (von Recklinghausen's disease) (HCC) - Follows with Neurologist, Dr. 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 No associated enhancement or pathologic parenchymal or leptomeningeal enhancement elsewhere in brain, right optic nerve, optic chiasm and optic tracts appear within normal limits - No indication for Neuro consult at this time Learning disability - Patient with significant learning disability and unable to read - Difficult for patient to recall medical history, medication management, and diagnoses History of seizures - Upon chart review, patient on Keppra - Unclear dosing as multiple different documented in chart and patient unsure of dose - Keppra 500mg BID ordered - Will plan to further investigate accurate dosing - Per patient, last seizure several years ago History of nicotine vaping - Stopped at 25 weeks Anxiety and depression - Previously on Zoloft 50, self-discontinued in Arnold-Chiari malformation (HCC) - Noted upon chart review - Patient unable to provide any additional information - Planning for anesthesia consult in 3rd trimester Rubella non-immune status, antepartum - MMR vaccine Asthma - Well controlled without medications Subjective Patient seen and examined at bedside with partner present. Reports feeling tired but otherwise doing well and denies additional concerns. Tolerating PO intake. Urinating without difficulty. Passing flatus. Pain well controlled with current regimen. Lochia decreasing. Ambulating without difficulty. Objective PHYSICAL EXAM: Heart: Regular rate, warm and well perfused Lungs: Normal respiratory effort Abdomen: Soft, appropriately tender, fundus firm belwo level of umbilicus, non-distended Incision: Transverse incision clean, dry, intact with steri-strips Extremities: No calf tenderness or edema, DTR 1+ LAST VITALS: Pulse BP Resp O2 Sat Temp Pain 72 104/67 16 93 % 36.8 ?C (98.2 ?F) 0 Avg Min Max Vitals (last 12 hours) Flowsheet Row Name Average Min Max BP: Systolic 115.09 104 134 BP: Diastolic 72.55 63 84 Temp 36.8 ?C (98.2 ?F) 36.5 ?C (97.7 ?F) 37 ?C (98.6 ?F) Pulse 78 72 82 Resp 16.93 14 20 SpO2 93 % 93 % 93 % HT/WT/BMI: Height Weight BMI 154.9 cm (5' 1) 80.3 kg (177 lb) 33.44 LABS ABO/RH: 05/30/2024: A; Positive RUBELLA: 01/29/2024: 8 HANDH: Hematocrit (%) Date Value 06/03/2024 28.5 06/02/2024 30.6 06/01/2024 27.7 05/31/2024 30.0 Hemoglobin (g/dL) Date Value 06/03/2024 9.1 06/02/2024 9.8 06/01/2024 8.7 05/31/2024 9.5 Diagnostic tests reviewed for today's visit: Most recent labs and imaging results. SIGNATURE: Ghada Casiano MD PATIENT NAME: Pablo Alarcon DATE: June 03, 2024 TIME: 6:27 AM [facility] 06-03-2024 Note HNO ID: [id number] Author: KVNG MURRELL MD Service: Obstetrics Author Type: Resident Type: Plan of Care Filed: 06/03/2024 05:52 Note Text: To bedside to evaluate patient after page by RN for 1+ reflexes. Patient is drowsy but arousable to voice. No new complaints. Plan for mag level and continued monitoring per protocol. Physical Exam: General: drowsy, arousable to voice Heart: warm and well-perfused. Normal S1-S2, no murmurs, regular rate Lungs: breathing comfortably on room air, CTAB Extremities: No edema bilaterally, calves symmetric, no calf tenderness bilaterally, 1+ biceps tendon reflexes bilaterally Skin: no visible rashes Kvng Thorpe, 5:45 AM I discussed this with Dr. Thorpe and agree with plan of care, awaiting Mag level. Kvng Murrell MD Pager # [phone] [employer] Resident PGY-3 06/03/2024 5:52 AM [facility] 06-02-2024 Note HNO ID: [id number] Author: JOCELYN JENNINGS MD Service: Obstetrics Author Type: Physician Type: Progress Notes Filed: 06/02/2024 17:55 Note Text: Prior to going back for , discussed with patient, FOB and family plans for [facility] consult due to patient and FOB with developmental delays and patient without custody of first born child. It is noted that the patient and FOB live with mother of FOB in stable housing and have her full support. Reassurance given to family that [facility] will work with family and recognize the support they have. Questions answered. Consult placed to Social Work, Gabriel and discussed situation with her. Jocelyn Jennings MD 5:55 PM 06/02/2024 [facility] 06-02-2024 Telephone encounter Note Patient delivered today at [facility]. Negar Youssef RN [facility] 06-02-2024 Miscellaneous Notes Patient delivered today at [facility]. Negar Youssef RN 31w1d Patient called. She would like her induction on 07/02 at [facility]. She is also asking for an order for an [place] to monitor the baby's heart rate after discharge. States her insurance will cover this with a physician order. Recommended discussing this at her next visit. Jocelyn Silvestre RN documented in this encounter [facility] 06-02-2024 Note HNO ID: [id number] Author: ALISSA CHAN APRN.CRNA Service: Anesthesiology Author Type: Nurse Custom Tailor Apprentice Type: Anesthesia Procedure Notes Filed: 06/02/2024 15:33 Note Text: ANESTHESIOLOGY PROCEDURE NOTE Airway General Information Procedure Start Time/Medication Administration: 06/02/2024 3:17 PM Procedure End Time: 06/02/2024 3:17 PM Patient location during procedure: OR Timeout Performed Pre-procedure: timeout performed Consent Obtained: Yes Patient identity confirmed: arm band and patient Staffing Anesthesiologist: Santhosh Chester MD THROAT CUTTER: Alissa Chan APRN.THROAT CUTTER SRNA: Alison Leal SRNA Performed by: anesthesiologist and SRNA Indications and Patient Condition Indications for airway management: anesthesia Preoxygenated: yes anesthesia circuit Patient position: sniffing Method: rapid sequence Cricoid Pressure: Yes Manual In-Line Stabilization: No Difficult Mask: No Final Airway Details Final airway type: endotracheal airway Final Endotracheal Airway: ETT Cuffed: yes Successful intubation technique: direct laryngoscopy Devices used: RideApart Endotracheal tube insertion site: oral Blade: Valentina Blade size: #4 ETT size (mm): 6.0 Measured from: lips Measurement (cm): 22 Placement verified by: capnometry Cormack-Lehane Classification: grade I - full view of glottis Number of attempts at approach: 1 Failed airway: no Unrecognized esophageal intubation: no Airway not difficult SIGNATURE: Alissa Chan APRN.THROAT CUTTER PATIENT NAME: Pablo Alarcon DATE: June 02, 2024 TIME: 3:32 PM CSN: [id number] [facility] 06-02-2024 Note HNO ID: [id number] Author: JOCELYN JENNINGS MD Service: Obstetrics Author Type: Resident Type: Progress Notes Filed: 06/02/2024 17:50 Note Text: Attestation signed by Jocelyn Jennings MD at 06/02/2024 5:50 PM Attending Note I evaluated the patient and personally participated in the martinez components. I agree with the resident's findings and plan as documented and have discussed the case and management of the patient's care with the resident. Plan of care discussed with: Provider, RN, Patient. Signature: Jocelyn Jennings MD Date: June 02, 2024 Time: 5:50 PM Delivery Decision Note Patient with recurrent late decelerations since 1320 without improvement. Given persistent category II tracing, will proceed with delivery. Decision time 1450. compressor repairer, anesthesia, NICU notified. Per anesthesia, will proceed under general anesthesia. Discussed with Dr. Jennings attending. Ghada Casiano MD OBGYN PGY-2 June 02, 2024 2:50 PM [facility] 06-02-2024 Note HNO ID: [id number] Author: JOCELYN JENNINGS MD Service: Obstetrics Author Type: Resident Type: Progress Notes Filed: 06/02/2024 17:50 Note Text: Attestation signed by Jocelyn Jennings MD at 06/02/2024 5:50 PM Team huddle completed. Agree with resident note and plan. All discussed with patient and family. Questions answered. Category II tracing note In room with Dr. Jennings and RN Natividad for Team . FHT with recurrent late decelerations since 1320. No improvement despite repositioning and IV fluids. Discussed with patient at bedside. Will continue to monitor. If persistent tracing for 1.5 hours, will proceed with primary delivery for persistent Category II tracing. Per anesthesia, cannot perform epidural or spinal based on MRI results. MD ANGELO Box PGY-2 June 02, 2024 2:30 PM [facility] 06-02-2024 Note HNO ID: [id number] Author: GHADA CASIANO MD Service: Obstetrics Author Type: Resident Type: Progress Notes Filed: 06/02/2024 10:21 Note Text: Received updated from Anesthesia team that recommend MRI of spine prior to epidural. On review of records, no recent spine MRI imaging. Discussed with Dr. Jennings and Dr. Hidalgo. Dr. Jennings discussed with Radiology and will perform as soon as able. MRI ordered. Discussed with patient, her family, and nursing staff. Will plan to continue magnesium infusion during MRI (MRI safe pumps available). MD ANGELO Box PGY-2 June 02, 2024 10:21 AM [facility] 06-02-2024 Note HNO ID: [id number] Author: GHADA CASIANO MD Service: Obstetrics Author Type: Resident Type: Progress Notes Filed: 06/02/2024 09:48 Note Text: In room with RN to start induction. Cervix 0.5/30/-3. Discussed cytotec and Cook catheter placement. Cytotec placed at 0940. Patient unable to tolerate Cook catheter placement. Reviewed UOP, 1000 mL over last 2 hours s/p Lasix. Will continue to monitor. Plan for cervical check in 4 hours or sooner if needed. MD ANGELO Box PGY-2 June 02, 2024 9:48 AM [facility] 06-02-2024 Note HNO ID: [id number] Author: JOCELYN JENNINGS MD Service: Obstetrics Author Type: Physician Type: Progress Notes Filed: 06/02/2024 09:26 Note Text: Report received from Dr. Casiano re consultation for induction of labor and delivery. Discussed plan for continued MFM management of pulmonary edema and pre-eclampsia with severe features with Dr. Casiano and Dr. Hidalgo. All in agreement of this plan. Will plan for Team when patient's grandmother arrives. Jocelyn Jennings MD 9:26 AM 06/02/2024 [facility] 06-02-2024 Note HNO ID: [id number] Author: LASHELL MCCRACKEN [facility] Service: ? Author Type: Genetic Counselor Type: Progress Notes Filed: 06/02/2024 09:21 Note Text: Summary: Recommendations for Genetic Testing of Baby Ms. Alarcon has a personal and family history of Neurofibromatosis type 1. Her current is at 50% risk to inherit the familial variant and also have NF1. Ms. Alracon declined diagnosis. Recommend the baby be referred to a Genetics department at [facility] or at the [facility] for an OUTPATIENT visit for evaluation and coordination of genetic testing of the familial variant. A copy of Ms. Alarcon's genetic test result is in the scanned tab of her medical record. A screen shot is below for reference. If the baby is inpatient for some time secondary to the known cardiac defect or other concerns, inpatient Genetics consultation can be considered. If there are any questions/concerns, please don't hesitate to contact me directly at [phone]. Lashell Mccracken MS, [facility] [place] Licensed Genetic Counselor [facility] 06-02-2024 History of Presen t illness Narrative Summary: Recommendations for Genetic Testing of Baby Images from the original note were not included. Ms. Alarcon has a personal and family history of Neurofibromatosis type 1. Her current is at 50% risk to inherit the familial variant and also have NF1. Ms. Alarcon declined diagnosis. Recommend the baby be referred to a Genetics department at [facility] or at the [facility] for an OUTPATIENT visit for evaluation and coordination of genetic testing of the familial variant. A copy of Ms. Alarcon's genetic test result is in the scanned tab of her medical record. A screen shot is below for reference. If the baby is inpatient for some time secondary to the known cardiac defect or other concerns, inpatient Genetics consultation can be considered. If there are any questions/concerns, please don't hesitate to contact me directly at [phone]. Lashell Mccracken MS, [facility] [place] Licensed Genetic Counselor documented in this encounter [facility] 06-02-2024 Note HNO ID: [id number] Author: ABELARDO HIDALGO MD Service: Obstetrics Author Type: Resident Type: Progress Notes Filed: 06/02/2024 10:08 Note Text: Attestation signed by Abelardo Hidalgo MD at 06/02/2024 10:08 AM Attending Note I evaluated the patient and personally participated in the martinez components. I agree with the resident's findings and plan as documented and have discussed the case and management of the patient's care with the resident. Given new pulmonary edema will proceed with delivery for severe preeclampsia. Expectant management is contraindicated in this setting. She is diuresing well with Lasix, will monitor symptoms and oxygen requirement and likely repeat Lasix again later. Baby is appropriate for care in our NICU per pediatric cardiology and NICU team today. Signature: Dr. Abelardo Hidalgo MD Date: June 02, 2024 Time: 10:06 AM Discussed patient with Dr. Hidalog and NICU attendings. In setting known Ebstein's anomal and care previously discussed with pediatric cardiology, will proceed with induction of labor here. Discussed with Dr. Jennings, attending physician. CERVIX: 0.5/20/-5 on admission HEART TRACING Baseline: 130 Moderate variability Accelerations present Decelerations none Category I TOCOMETER Irregular contractions BEDSIDE US Vertex position, posterior placenta, FHT normal, APRIL normal (14.86 cm) Assessment AND Plan Labor and delivery indication for care or intervention Induction of labor for superimposed pre eclampsia with severe features GBS-negative Cytotec and cervical ripening balloon soon Pitocin as needed Epidural on request Amniotomy as needed Growth ultrasound at 29w0d EFW 1270g 28%, AC 46% History of , 6lb9oz in 2014 Chronic hypertension with superimposed pre-eclampsia - Admitted from OSH with concerns for SIPEw/o exacerbation vs. SIPEw/, now meeting criteria at 32w for SIPEw/ with pulmonary edema on CXR - Prior to admission, was acutely treated with Labetalol 20, started on Mag, given rescue steroids, and transferred to [facility] - Started on magnesium 6 g bolus, 2g/hr hour infusion for seizure prophylaxis - Maintenance meds: Labetalol 600mg TID, Procardia 60 BID - Will continue to monitor blood pressures Pulmonary edema - Pulmonary edema on 06/02 CXR - S/p Lasix IV 20 mg - Troponin elevated 13 - plan for repeat in 4 hours - Continue to monitor O2 saturation and symptoms - can consider repeat Lasix dose - Christensen catheter in place for I/O strict monitoring Prematurity - S/p betamethasone for lung maturity 04/17-04/18, 05/30-05/31 - GBS negative - NICU consulted Neurofibromatosis, type 1 (von Recklinghausen's disease) (HCC) - Follows with Neurologist, Dr. 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 No associated enhancement or pathologic parenchymal or leptomeningeal enhancement elsewhere in brain, right optic nerve, optic chiasm and optic tracts appear within normal limits - No indication for Neuro consult at this time Learning disability - Patient with significant learning disability and unable to read - Difficult for patient to recall medical history, medication management, and diagnoses History of seizures - Upon chart review, patient on Keppra - Unclear dosing as multiple different documented in chart and patient unsure of dose - Keppra 500mg BID ordered - Will plan to further investigate accurate dosing - Per patient, last seizure several years ago History of nicotine vaping - Stopped at 25 weeks Anxiety and depression - Previously on Zoloft 50, self-discontinued in Arnold-Chiari malformation (HCC) - Noted upon chart review - Patient unable to provide any additional information - Planning for anesthesia consult in 3rd trimester cardiac anomaly complicating , antepartum - 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 Tawny LIZARRGAAM and Dr. Jennings PPG attending. Will plan for TEAM when patient's grandmother arrives. Ghada Casiano MD OBGYN PGY-2 June 02, 2024 9:24 AM [facility] 06-02-2024 Note HNO ID: [id number] Author: GHADA CASIANO MD Service: Obstetrics Author Type: Resident Type: Progress Notes Filed: 06/02/2024 07:34 Note Text: Reviewed results of CXR, EKG, and troponins. CXR notable diffuse pulmonary vascular congestion and mild pulmonary edema. EKG normal sinus rhythm. Troponin slightly elevated at 13. CBC and CMP reviewed and without concerning results. Preeclampsia Labs (three days): Recent Labs 06/02/24 0557 06/01/24 0421 05/31/24 0613 05/30/24 1125 05/30/24 1120 HB 9.8* 8.7* 9.5* < > -- HCT 30.6* 27.7* 30.0* < > -- PLT 279 250 283 < > -- BUN 18 20 -- -- 7 CREAT 0.75 0.95 -- -- 0.61 AST 31 20 -- -- 42* ALT 23 17 -- -- 28 < > = values in this interval not displayed. Given new chest XR finding of pulmonary edema, patient now meets criteria for superimposed pre eclampsia with severe features. Discussed with Dr. Hidalgo M attending. Will initiate magnesium for seizure prophylaxis now. Starting with 6 g bolus, then 2 g/hr infusion. Will give IV lasix now. Given worsening hypertensive disease, recommend proceeding with delivery. Bedside ultrasound performed and vertex position confirmed. Patient with known Ebstein anomaly. Will discuss with NICU team and Dr. Hidalgo. If concerns from NICU team related to cardiac anomaly and request for delivery at [facility], will facilitate transfer of patient for induction. If no concerns, will plan to start induction. On CEFM, tracing category I and reactive. Patient's diet changed to NPO. Discussed diagnosis and plan with patient and her support people over the phone. Ghada Casiano MD OBGYN PGY-2 June 02, 2024 7:30 AM [facility] 06-02-2024 Note HNO ID: [id number] Author: GHADA CASIANO MD Service: Maternal Medicine Author Type: Resident Type: Progress Notes Filed: 06/02/2024 06:28 Note Text: OBSTETRICS ANTEPARTUM PROGRESS NOTE SERVICE DATE: 06/02/2024 SERVICE TIME: 6:21 AM 28 year old EGA:32w0d admitted for superimposed pre eclampsia without severe features exacerbation versus superimposed pre eclampsia with severe features. Assessment AND Plan Chronic hypertension with superimposed pre-eclampsia - Admitted from OSH with concerns for SIPEw/o exacerbation v. SIPEw/ - Patient had one severe range blood pressure at OSH - Was acutely treated with Labetalol 20, started on Mag, given rescue steroids, and transferred to [facility] - Patient with known chronic hypertension, now meeting criteria for superimposed pre eclampsia without severe features - Admission labs significant for UPC 0.61, otherwise no evidence of severe features - Maintenance medications: Labetalol 600 mg TID, Procardia XL 60 mg BID - Admitted for CHTN exacerbation at [facility] 04/17-04/23 - Asymptomatic - S/p magnesium for 12 hours Chest pain - Reports chest pain worse with inspiration - CXR, EKG, troponin ordered and pending Hypoxia - On 3L by NC given O2 sat <95% on room air - COVID/flu/RSV on admission negative, repeat swabs pending - Patient reports nasal polyp - Flexeril ordered for possible musculoskeletal pain Leukocytosis - Patient with WBC of 22 on admission > 27.22 > 25.27 - Endorses upper respiratory symptoms for several months, including rhinorrhea and cough - Covid/flu/RSV - negative - Urinalysis, urine culture negative - Urinalysis ordered this AM, pending Prematurity - S/p betamethasone for lung maturity 05/30-05/31, 04/17-04/18 - S/p magnesium - GBS negative - 31w BPP 02/12, APRIL normal - 29w growth ultrasound EFW 1270g 28%, AC 46% - Plan for growth ultrasound today cardiac anomaly complicating , antepartum - 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 No associated enhancement or pathologic parenchymal or leptomeningeal enhancement elsewhere in brain, right optic nerve, optic chiasm and optic tracts appear within normal limits - No indication for Neuro consult at this time Learning disability - Patient with significant learning disability and unable to read - Difficult for patient to recall medical history, medication management, and diagnoses History of seizures - Upon chart review, patient on Keppra - Unclear dosing as multiple different documented in chart and patient unsure of dose - Keppra 500mg BID ordered - Per patient, last seizure several years ago Anxiety and depression - Previously on Zoloft 50, self-discontinued in Arnold-Chiari malformation (HCC) - Noted upon chart review - Patient unable to provide any additional information - Planning for anesthesia consult in 3rd trimester Rubella non-immune status, antepartum - MMR vaccine Asthma - Well controlled without medications History of nicotine vaping - Stopped at 25 weeks Subjective : Pablo reports that she is not doing well this morning. Reports chest pain that is worse with taking a deep breath. States that these symptoms started last night. Reports that she has been having a hard time breathing through her nose because of her reported history of nasal polyp. Denies vaginal bleeding, leakage of fluids, contractions. Reports good movement. Denies headache, visual changes, right upper quadrant abdominal pain, chest pain, shortness of breath, or worsening edema. States that she is peeing more than usual. Denies pain in her legs. Objective : LAST VITALS: Pulse BP Resp O2 Sat Temp Pain 99 156/94 16 94 % 36.5 ?C (97.7 ?F) 7 PHYSICAL EXAM: General: Appears comfortable, no acute distress Heart: Regular rate and rhythm Lungs: Clear to auscultation Abdomen: Gravid, nontender Extremities: No edema, nontender, no erythema MONITORING/ASSESSMENT: Non-stress test pending LABS Diagnostic tests reviewed for today's visit: Most recent labs and imaging results. SIGNATURE: Ghada Casiano MD PATIENT NAME: Pablo Alarcon DATE: June 02, 2024 TIME: 6:21 AM [facility] 06-02-2024 Note SARS-COV-2 (AGENT OF COVID-19) RNA: Not detected INFLUENZA A RNA: Not detected INFLUENZA B RNA: Not detected RESPIRATORY SYNCYTIAL VIRUS (RSV) RNA: Not detected [facility] Comment on above: Performed By: #### 9 [id number] #### [facility][1] LABORATORY CLIA [id number] [address] [place] [address] STATES OF [facility] 06-02-2024 Note HNO ID: [id number] Author: DELMIS BILLS DO Service: Obstetrics Author Type: Resident Type: Progress Notes Filed: 06/02/2024 06:05 Note Text: SUBJECTIVE: Paged by RN in regards to chest pain. At bedside the patient reports 10/10 chest pain and breast tenderness that began last night. She reports midsternal chest pain and breast tenderness that feels like her breasts are engorged. She denies radiation of the pain beyond her chest and breast, but does report numbness in her left hand, denies sleeping on the side/hand recently. She also notes difficulty taking deep breaths and pain with deep inspiration. She denies palpitations. She has tried tylenol, heating pad and repositioning without relief. She also reports congestion for which she was given flonase last evening which helped with her congestion symptoms. OBJECTIVE: 06/01/24 1900 06/01/24 2100 06/02/24 0010 06/02/24 0455 BP: 142/94 134/68 134/91 156/94 Pulse: 106 108 106 99 Resp: Temp: 36.5 ?C (97.7 ?F) TempSrc: SpO2: 93% 95% 93% 94% Weight: Height: General: lying comfortably in hospital bed, mildly anxious appearing Heart: warm and well-perfused. Normal S1-S2, no murmurs, regular rate Lungs: breathing comfortably on room air, CTAB Chest: tenderness to palpation of bilateral breasts, no erythema or warmth appreciated Abdomen: soft, nondistended, nontender Extremities: trace edema bilaterally, calves symmetric ASSESSMENT: 28 year old at 32w0d with new onset chest pain and tenderness. PLAN: #Chest pain - Given exam and subjective history of pain, MSK origin seems most likely, however given O2 saturation of less than 95% and pre-eclampsia diagnosis will obtain CXR, EKG and troponin - Flexeril ordered - Not notified overnight of patient's desaturation below 95% and therefore were unable to provide supplemental oxygen Discussed with Nader Haji and Ariana. Delmis Bills DO [employer] PGY-2 Pager [phone] June 02, 2024 6:04 AM [facility] 06-01-2024 Note HNO ID: [id number] Author: KVNG MURRELL MD Service: Obstetrics Author Type: Resident Type: Plan of Care Filed: 06/01/2024 21:13 Note Text: Patient with spontaneous deceleration at the beginning of NST - kept on monitor for 1 hour and reactive NST. Discussed with Dr. Lane who recommended 1 additional hour of monitoring and will take off monitor if without further decelerations, otherwise will monitor overnight Kvng Murrell MD Pager # [phone] [employer] Resident PGY-3 06/01/2024 9:13 PM [facility] 06-01-2024 Note HNO ID: [id number] Author: GHADA CASIANO MD Service: Maternal Medicine Author Type: Resident Type: Progress Notes Filed: 06/01/2024 13:58 Note Text: Decision was made to discharge patient in setting of stable blood pressures this morning after rounding with Dr. Manuel. Following this, patient was placed on EFM for NST which was found to be nonreactive without accelerations. Bedside ultrasound biophysical profile was performed with Dr. Guardado, BPP 12/15. Discussed with Dr. Hidalgo. Will plan to keep patient inpatient. Plan for formal growth ultrasound with BPP tomorrow with M. Will keep on CEFM for now and reevaluate, consider de escalating to NST BID. Will continue to monitor blood pressures. Will continue blood pressure medications labetalol 600 mg TID and Procardia XL 60 mg BID. Regular diet ordered. Discussed with patient and her support people by phone. Answered all questions. Ghada Casiano MD OBGYN PGY-2 June 01, 2024 1:56 PM [facility] 06-01-2024 Note HNO ID: [id number] Author: LUKASZ GUARDADO MD Service: Obstetrics Author Type: Physician Type: Procedures Filed: 06/30/2024 22:46 Note Text: BEDSIDE PROCEDURE NOTE US OB LIMITED (POC) LND USE ONLY Date/Time: 06/01/2024 1:49 PM Performed by: Ghada Casiano MD Authorized by: Abelardo Hidalgo MD Limited Ultrasound: 2nd/3rd Trimester Probe used: Curvilinear Indications: Other (please comment) (Biophysical profile) Ultrasound Findings: Number of Fetuses: One Fetus: Presentation: Vertex Placental Position: Posterior Heart Rate Measured: Yes 135bpm Amniotic Fluid Assessmentt: APRIL 14.86cm, Q1 4.13cm, Q2 2.97cm, Q3 2.97cm, Q5 4.8cmcm Biophysical Profile Performed: Yes Movement: 2 Breathin Tone: 2 Amniotic Fluid: 2 NST: 0 BPP Score: 6 Conclusion Clinical Gestational age: 31w6d Ultrasound Gestational age: Impression: Other (see comment) Comments: BPP 12/15 Imaging study performed by: Resident/AINSLEY with Attending supervision Resident Performing Ultrasound: Ghada Casiano MD Attending Supervising/Performing Ultrasound: Dr. Guardado Images saved for exam: Yes Images associated with this report can be found under the Get Images tab in [facility]. I saw and evaluated the patient. Discussed with the resident and agree with resident's findings and plan as documented in the resident's note. Delayed entry - I personally saw/examined the patient on 06/01/24. Lukasz Guardado MD SIGNATURE: Ghada Casiano MD PATIENT NAME: Pablo Alarcon DATE: June 01, 2024 TIME: 1:49 PM [facility] 06-01-2024 Note HNO ID: [id number] Author: MICHELE GARLAND MD Service: ? Author Type: Physician Type: Progress Notes Filed: 06/01/2024 13:44 Note Text: NST SUMMARY PROVIDER ASSESSMENT AND INTERPRETATION Pablo Alarcon is a 28 year old female, , who is at 31w6d with an JOE of 07/28/2024, by Ultrasound dating method. Indications for NST: Chronic HTN Baseline: 135 Variability: Moderate Accelerations: Present 10 X 10 Decelerations: None Contractions: TOCO: None Interpretation: Reactive SIGNATURE: Michele Garland DO [facility] 06-01-2024 History of Presen t illness Narrative NST SUMMARY PROVIDER ASSESSMENT AND INTERPRETATION Pablo Alarcon is a 28 year old female, , who is at 31w6d with an JOE of 07/28/2024, by Ultrasound dating method. Indications for NST: Chronic HTN Baseline: 135 Variability: Moderate Accelerations: Present 10 X 10 Decelerations: None Contractions: TOCO: None Interpretation: Reactive SIGNATURE: Michele Garland DO [employer] Readings: 155/114 137/91 139/96 132/92 131/92 Average: 138/95 documented in this encounter [facility] 06-01-2024 Telephone encounter Note Summary: MaterniT Genome Results Images from the original note were not included. I attempted to reach Ms. Alarcon this morning to review her NEGATIVE MaterniT Genome Results. Her phone went straight to voicemail and I left her a good news message. A MyChart message will be sent along with a copy of her result. In addition, I have obtained a copy of her NF1 genetic test results and will send her a copy for her records. Will speak with the Medical Genetics team regarding their recommendation for testing the baby after . Lashell Mccracken MS, [facility] [place] Licensed Genetic Counselor [phone] [facility] Work Phone: 06-01-2024 Miscellaneous Notes Summary: MaterniT Genome Results Images from the original note were not included. I attempted to reach Ms. Alarcon this morning to review her NEGATIVE MaterniT Genome Results. Her phone went straight to voicemail and I left her a good news message. A MyChart message will be sent along with a copy of her result. In addition, I have obtained a copy of her NF1 genetic test results and will send her a copy for her records. Will speak with the Medical Genetics team regarding their recommendation for testing the baby after . Lashell Mccracken MS, [facility] [place] Licensed Genetic Counselor [phone] documented in this encounter [facility] 06-01-2024 Note HNO ID: [id number] Author: JONATHAN MANUEL MD Service: Maternal Medicine Author Type: Physician Type: Progress Notes Filed: 06/01/2024 09:15 Note Text: OBSTETRICS ANTEPARTUM PROGRESS NOTE SERVICE DATE: 06/01/2024 SERVICE TIME: 6:29 AM 28 year old EGA:31w6d admitted for superimposed pre eclampsia without severe features exacerbation versus superimposed pre eclampsia with severe features. Assessment AND Plan Chronic hypertension with superimposed preeclampsia - Admitted from OSH with concerns for SIPEw/o exacerbation v. SIPEw/ - Patient had one severe range blood pressure at OSH - Was acutely treated with Labetalol 20, started on Mag, given rescue steroids, and transferred to [facility] - Patient with known chronic hypertension, now meeting criteria for superimposed pre eclampsia without severe features - Admission labs significant for UPC 0.61, otherwise no evidence of severe features - Maintenance medications: Labetalol 600 mg TID, Procardia XL 60 mg BID - Admitted for CHTN exacerbation at [facility] 04/17-04/23 - Asymptomatic - S/p magnesium for 12 hours - 24 hour urine protein ordered Leukocytosis - Patient with WBC of 22 on admission > 27.22 > 25.27 - Endorses upper respiratory symptoms for several months, including rhinorrhea and cough - Covid/flu/RSV - negative - Urinalysis, urine culture ordered and pending Prematurity - S/p betamethasone for lung maturity 05/30 - 05/31, 04/17 - 04/18 - S/p magnesium - GBS ordered and pending - 31w BPP 02/12, APRIL normal - 29w growth ultrasound EFW 1270g 28%, AC 46% cardiac anomaly complicating , antepartum - Ebstein anomaly - 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 No associated enhancement or pathologic parenchymal or leptomeningeal enhancement elsewhere in brain, right optic nerve, optic chiasm and optic tracts appear within normal limits - No indication for Neuro consult at this time Learning disability - Patient with significant learning disability and unable to read - Difficult for patient to recall medical history, medication management, and diagnoses History of seizures - Upon chart review, patient on Keppra - Unclear dosing as multiple different documented in chart and patient unsure of dose - Keppra 500mg BID ordered - Per patient, last seizure several years ago Anxiety and depression - Previously on Zoloft 50, self-discontinued in Arnold-Chiari malformation (HCC) - Noted upon chart review - Patient unable to provide any additional information - Planning for anesthesia consult in 3rd trimester Rubella non-immune status, antepartum - MMR vaccine Asthma - Well controlled without medications History of nicotine vaping - Stopped at 25 weeks Subjective : Pablo reports she is doing well. Denies headache, visual changes, right upper quadrant abdominal pain, chest pain, shortness of breath, or worsening edema. Denies vaginal bleeding, leakage of fluids, contractions. Reports good movement. Objective : LAST VITALS: Pulse BP Resp O2 Sat Temp Pain 113 136/73 16 95 % 37 ?C (98.6 ?F) 4 PHYSICAL EXAM: General: WD, WN, comfortable Heart: Regular rate Lungs: Unlabored breathing on room air Abdomen: Gravid, nontender Extremities: Nontender MONITORING/ASSESSMENT: Non-stress test pending LABS Diagnostic tests reviewed for today's visit: Most recent labs and imaging results. SIGNATURE: Ghada Casiano MD PATIENT NAME: Pablo Alarcon DATE: June 01, 2024 TIME: 6:29 AM I personally saw and examined the patient on 06/01/2024. I reviewed the resident's note. I agree with the resident's assessment and plan unless otherwise noted.Patient with Chronic hypertension and now superimposed pre eclampsia. Patient had recent change in meds and has now been on 2-3 days of uptitrated labetalol. Now on 600 mg TID and Nifedipine ER 60 mg BID. BP clinical in target range. Patient without symptoms and otherwise normal labs. Will discharge to home and continue home bedrest and monitoring. Will continue twice weekly testing at home. Has completed steroids. Recommend delivery timing at 36 weeks if no severe range BP> If returns with severe range BP would consider moving to delivery. I spent 35 min of floor unit time on this visit and discharge. Fetus with ebsteins anomaly. Plan for delive (more content not included)... [facility] 05-31-2024 Note HNO ID: [id number] Author: ROZINA PIZARRO MD Service: Obstetrics Author Type: Registered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 V22.2, ICD10: Z3A.31 - URINE OB DIP B/O - BIOPHYSICAL PROFILE US I 3. Supervision of other high risk pregnancies, second trimester - ICD9: V23.89, ICD10: O09.892 - URINE OB DIP B/O - BIOPHYSICAL PROFILE US I Jocelyn Botello MD [facility]11-19-2024 Miscellaneous Notes* Quick Notes - Jocelyn Botello MD - 05/26/2024 10:50 AM EST S: Pablo Alarcon is a 28 year old female who presents at 07/28/2024, by Ultrasound for a routine visit. Good movement, No contractions Seen by MFM today. Labetalol increased to 500 TID. Expected delivery 36-37 weeks Twice weekly testing until then Delivery in [place] cardiac anomaly- Ebstein's O: See flow sheet Gen: No apparent distress Abd: Gravid, nontender BPP / NST on Saturday True BP 128/88 ASSESSMENT/PLAN: 1. Chronic hypertension affecting - ICD9: 642.00, ICD10: O10.919 (primary diagnosis) - OBSTETRIC ULTRASOUND WH - NON-STRESS TEST - URINE OB DIP B/O - BIOPHYSICAL PROFILE US I 2. 31 weeks gestation of - ICD9: V22.2, ICD10: Z3A.31 - URINE OB DIP B/O - BIOPHYSICAL PROFILE US I 3. Supervision of other high risk pregnancies, second trimester - ICD9: V23.89, ICD10: O09.892 - URINE OB DIP B/O - BIOPHYSICAL PROFILE [facility] Jocelyn Botello MD documented in this encounterGenesis Hospital11-19-2024 History of Present illness Narrative* Viola Somers MD - 05/26/2024 10:30 AM EST MFM Consult Follow up Pablo Alarcon is a 28 year old at 31w0d being seen for ultrasound and consultative follow up in complicated by maternal NF1, chronic hypertension on multiple medications, history seizure disorder, Ebstein anomaly. Reviewed BP trend, reports persistently elevated at home 140-150s systolic. Had diastolic 110 yesterday at home but was non-sustained. Reports adherence to medication as prescribed and able to repeatdosing/amounts of medication (nifedipine and labetalol) taken and the daily time/interval. She denies headache, RUQ pain, neurologic symptoms, vaginal bleeding or decreased movement. OBJECTIVE: Wt 177 lb 3.2 oz (80.4kg) LMP 10/22/2023 Initial BP 150s/90s, repeat after ultrasound normal range See ultrasound report for details. See ACOG flowsheet. EXAM: GENERAL: Alert, oriented, no acute distress CHEST: Normal inspiratory effort ABDOMEN: soft, non-tender during US exam EXTREMITIES: minimal edema Urine P/C: 0.14 Cr: 0.66 mg/dL AST/ALT: 21/02 Hgb/Hct: 10.836 Plt: 264k US: BPP 02/12 ASSESSMENT/PLAN: 28 year old at 31w0d with multiple co-morbidities here for MFM co-management. 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) Cardiovascular Chronic hypertension affecting Overview Taking Labetalol 200mg q12h and Nifedipine XL 60mg twice daily (up titrated [facility] admission 04/17-04/23) Secondary HTN work up on admission unremarkable, no evidence superimposed preeclampsia Growth US every 4 wk starting at 32wk Twice weekly testing at 30 weeks IOL 36-37w, would favor later /early term given hospitalization for exacerbation third trimester (delivery recommended [facility]) with difficult to control BP Current Therapy 05/26/2024 (BP persistently 150s systolic at home and initial BP in clinic) Nifedipine XL 60 mg BID Labetalol 400 mg TID --> increase to 600 TID Relevant Medications labetalol (TRANDATE) 300 mg tablet Musculoskeletal 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 Encouraged continued cessation. 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 Author Type: Physician Type: Progress Notes Filed: 05/26/2024 11:50 Note Text: MFM Consult Follow up Pablo Alarcon is a 28 year old at 31w0d being seen for ultrasound and consultative follow up in complicated by maternal NF1, chronic hypertension on multiple medications, history seizure disorder, Ebstein anomaly. Reviewed BP trend, reports persistently elevated at home 140-150s systolic. Had diastolic 110 yesterday at home but was non-sustained. Reports adherence to medication as prescribed and able to repeat dosing/amounts of medication (nifedipine and labetalol) taken and the daily time/interval. She denies headache, RUQ pain, neurologic symptoms, vaginal bleeding or decreased movement. OBJECTIVE: Wt 177 lb 3.2 oz (80.4kg) LMP 10/22/2023 Initial BP 150s/90s, repeat after ultrasound normal range See ultrasound report for details. See ACOG flowsheet. EXAM: GENERAL: Alert, oriented, no acute distress CHEST: Normal inspiratory effort ABDOMEN: soft, non-tender during US exam EXTREMITIES: minimal edema Urine P/C: 0.14 Cr: 0.66 mg/dL AST/ALT: 17/8 Hgb/Hct: 10.8/36 Plt: 264k US: BPP 02/12 ASSESSMENT/PLAN: 28 year old at 31w0d with multiple co-morbidities here for MFM co-management. 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) Cardiovascular Chronic hypertension affecting Overview Taking Labetalol 200mg q12h and Nifedipine XL 60mg twice daily (up titrated [facility] admission 04/17-04/23) Secondary HTN work up on admission unremarkable, no evidence superimposed preeclampsia Growth US every 4 wk starting at 32wk Twice weekly testing at 30 weeks IOL 36-37w, would favor later /early term given hospitalization for exacerbation third trimester (delivery recommended [facility]) with difficult to control BP Current Therapy 05/26/2024 (BP persistently 150s systolic at home and initial BP in clinic) Nifedipine XL 60 mg BID Labetalol 400 mg TID --> increase to 600 TID Relevant Medications labetalol (TRANDATE) 300 mg tablet Musculoskeletal 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 Encouraged continued cessation. 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 Repeat growth four weeks cardiac anomaly complicating , antepartum Overview Ebstein anomaly Delivery recommended at [facility] Saw genetics, Mat21 Genome ordered Medical Decision Making: Problems: High: Illness/injury w/ threat to life/body function Risk: Moderate: Drug management High: High risk from testing/treatment Medical Decision Making Level: 5 - High Viola Somers MD May 26, 2024 8:40 [facility]11-19-2024 Note Indication Evaluation of well-being Transfer of care, Chronic hypertension, seizure disorders, Ebstein's Anomaly Impression - Single, live, intrauterine . - The amniotic fluid volume is normal amount with an MVP of 5.5 cm and an APRIL of 12.9 cm. - The placenta is posterior, fundal. - BPP 8/8. Recommendations Continue planned testing Maternal Assessment Height 155 cm Height (ft) 5 ft Height (in) 1 in Maternal assessment other: 2 Para 1 Growth Overview Exam date GA BPD (mm) HC (mm) AC (mm) FL (mm) HL (mm) EFW (g) 05/12/2024 29w 0d 74.5 66% 271.1 50% 248.7 46% 51.8 18% 47.4 14% 1270 28% Method Transabdominal ultrasound examination [place] . Number of fetuses: 1 Dating GA by prior assessment 31 w + 0 d JOE by prior assessment: 07/28/2024 Assigned: based on stated JOE, selected on 05/12/2024 Assigned GA 31 w + 0 d Assigned JOE: 07/28/2024 General Evaluation Cardiac activity present. FHR 148 bpm. movements: present. Presentation: cephalic Placenta: Placental site: posterior, fundal Umbilical cord: Cord vessels: 3 vessel cord Amniotic Fluid Assessment Amount of AF: normal amount MVP 5.5 cm. APRIL 12.9 cm. Q1 1.3 cm, Q2 5.5 cm, Q3 2.6 cm, Q4 3.5 cm Biophysical Profile 2: breathing movements 2: Gross body movements 2: tone 2: Amniotic fluid volume 02/12 Biophysical profile score Anatomy 4-chamber view: abnormal Heart / Thorax 4-chamber view: Ebstein anomaly sex: male Wants to know sex: yes Performed By: Britney Malhotra RDMS, RVT Read By: Viola Somers M.D.MATERNAL [id number] Instructions* Patient Instructions* Frank Griffith MA - 05/26/2024 9:39 AM EST SEQUENTIAL SCREENINGS [facility] offers sequential screenings for women who are interested in screenings for chromosomal abnormalities and certain defects during a . The sequential screen combinesultrasound and blood tests to determine the risk of chromosomal abnormalities, including Down's Syndrome (Trisomy 21) and Trisomy 18, as well as open neural tube defects including spina bifida. Ultrasound examination is performed between 11 weeks and 13 weeks gestational age. Blood tests are drawn after the ultrasound and again later in the between 15 and 21 weeks gestational age. Please let your physician know if you are interested in this testing. It will require an appointment withour small electric engine technician. This is not an ultrasound performed by a physician in our office during a routine visit. SIGNS AND SYMPTOMS OF LABOR 1. Contractions every 10 minutes or more often 2. Clear, pink, or brownish fluid (water) leaking from vagina 3. Feeling that baby is pushing down, pressure 4. Low, dull backache 5. Cramps that feel like a period 6. Cramps with or without diarrhea If you notice any of the above symptoms, contact our office at [phone] and ask to speak with anurse. After hours, you can call doctors registry at [phone] OR call [facility] at [phone] ask to have the doctor supervisor home restoration service paged. If you consider this an emergency, dial [phone] or go to your nearest emergency department. NEED HELP? Are you dealing with a violent or abusive relationship? Are you a victim of rape or sexual assult? Call [facility] ([place]) 24 hour Crisis Hotline: 485.982.1052 or 519-261-8496. MANUAL Your Guide to a Healthy manual is now on-line. Visit [email or web address] to download your free copy documented in this encounterGenesis Hospital11-19-2024 Telephone encounter Note * Telephone Encounter - Lashell Mccracken LGC - 05/26/2024 9:26 AM ESTSummary: MaterniT Genome Attempted to reach Ms. Alarcon by phone but it went straight to voicemail. Sent text message letting her know that I received confirmation from [employer] that she would have a zero dollar outof pocket for the MaterniT Genome test we had discussed given the presence of the cardiac malformation. An order has been placed and I let her know that she can go to any [facility] lab for the blood draw. Results will be called to her when available as she said MyChart messages are sometimes difficult for her. Lashell Mccracken, , [facility] [place] Licensed Genetic Counselor [phone] [facility] Work Phone: 1(298) 726-464711-19-2024 Miscellaneous Notes* Telephone Encounter - Lashell Mccracken LGC - 05/26/2024 9:26 AM ESTSummary: MaterniT Genome Attempted to reach Ms. Alarcon by phone but it went straight to voicemail. Sent text message letting her know that I received confirmation from [facility] that she would have a zero dollar outof pocket for the MaterniT Genome test we had discussed given the presence of the cardiac malformation. An order has been placed and I let her know that she can go to any [facility] lab for the blood draw. Results will be called to her when available as she said [employer] messages are sometimes difficult for her. Lashell Mccracken MS, [facility] Licensed Genetic Counselor [phone] documented in this encounterGenesis Hospital11-18-2024 Telephone encounter Note * Telephone Encounter - Michele Garland MD - 05/25/2024 3:00 PM EST filed [facility] Work Phone: 1(492) 858-453711-18-2024 Miscellaneous Notes* Telephone Encounter - Michele Garland MD - 05/25/2024 3:00 PM EST filed * Telephone Encounter - Britney Valdivia RN - 05/25/2024 11:44 AM EST Patient 30w6d is scheduled for BPP tomorrow. Please file pended order. Britney Valdivia RN documented in this encounterGenesis Hospital11-18-2024 History of Present illness Narrative* Lashell Mccracken LGC - 05/25/2024 12:00 PM ESTSummary: Cardiac Defect; Maternal Neurofibromatosis Type 1 REPRODUCTIVE GENETIC COUNSELING INITIAL VISIT Pablo Alarcon : 1995 Above identifiers confirmed by Lashell Mccracken MS, [facility] Consultation requested by: Viola Somers MD Date of clinic visit: May 25, 2024 Unit Nurse offered/present: No Ms. Alarcon is seen via a virtual Distance Health visit today via MyChart Zoom platform per patient choice. The visit is conducted synchronously in real-time. I have communicated my name and active licensure. The patient's identity and physical location were verified at the time of this visit. Either the patient or their legal promotional representative has been informed of the risks and benefits of -- and alternatives to -- treatment through a remote evaluation and consents to proceed with the evaluationremotely. PRESENTING PROBLEM: Pablo Alarcon is a 28 year old female referred by Viola Somers MD for genetic counseling to discuss ultrasound findings consistent with a cardiac defect. She is also known to have a personal history of Neurofibromatosis type 1 (NF1). She was accompanied to the visit today by her partner, Mr. Grant Teixeira, and Mr. Teixeira's mother, Emmanuelle. REPRODUCTIVE HISTORY: Currently : Yes / 30w6d (by US) JOE: 07/28/2024 Plans to deliver at [facility] history: 1. 09/26/2024: 41w6d vaginal delivery, male, 6 pounds 9 ounces. This was with a different partner. Ms. Alarcon's son reportedly does NOT have NF1. He is 9-years-old and has been diagnosed with autism. He requires additional assistance at school and participates in both occupational and speech therapy. 2. Current . Ms. Pablo Alarcon's Carrier Screen Results: Not performed. exposures: - vitamins or other folate supplementation: Yes - Prescription medicines: Labetalol, Nifedipine, Keppra. Zoloft was stopped per Ms. Alarcon as it made her feel ill. - OTC medicines, herbal medicines, other supplements: Tylenol, Aspirin - Tobacco, alcohol, or illicit drugs: No - Maternal infections or fevers: No - Other known/suspected human teratogens: No Aneuploidy screening: It is unclear if noninvasive screening has been completed. The couple is unable to clarify this today. A result could not be identified in the medical record. Ultrasounds: - Anatomy scan at 29w0d gestation (performed 05/12/2024): 29w0d by scan. The right ventricle and right atria appear subjectively larger than left. The anterior leaflet of the tricuspid valve appears subjectively larger and more hyperechoic than expected. The overall cardiac structure appears grosslynormal. No other malformations were visualized on detailed anatomic survey, some views suboptimal due to position and late gestational age. - Echocardiogram at 29w6d gestation (performed 05/18/2024): Ebstein's anomaly of the tricupidvalve with apical displacement of the tricupsid valve and tethering of the septal leaflet. Moderateto severe tricuspid regurgiation. CVS: Not Applicable Amniocentesis: Discussed today and declined. complications: - Maternal diabetes, hypertension, seizures, other illness: See below. - Vaginal bleeding, labor, other complications: No - Decreased movement: Unknown SIGNIFICANT PAST MEDICAL/SURGICAL HISTORIES: Ms. 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 She is followed by Neurology on a routine basis. Ms. Alarcon believes that genetic testing for NF1 has been performed for her and her son, but documentation of results cannot be located in the medical records. She is also reported to have a pyloric stenosis requiring surgical repair at 2 months of age. FAMILY HISTORY: A 3-generation pedigree was obtained for the patient and her partner and will be scanned into patient's EMR. Of note: - Genetic and/or Inherited Disease: Mother, brother, sister, maternal half- brother and maternal half-nephew with NF1. Maternal grandmother with suspected NF1. - Common Disorders: Father from suspected aortic aneurysm at 45 years of age following a motor vehicle accident. Mother from possible drug abuse vs cardiac disease. - Defects: None - Seizures: None (unless associated with NF1) - Recurrent Loss/Infertility: None - MR/DD/Autism: None - : None - Other:None Ms. Alarcon's partner, Mr. Grant Teixeira, is 24 years old, with Asperger syndrome and asthma. His family history is notable for his full brother with Asperger syndrome and mental health concerns, mother (Frankie) with epilepsy, fibromyolgia, left congenital cataract and adult-onset hearing loss, maternal uncle with lymphoma, maternal grandfather with tricuspid regurgitation and adult onset hearing loss and maternal grandmother with sudden at age 62 years (no prior history of cardiac issue). Mr. Teixeira does not have any contact with his paternal family. - Patient's ethnicity: White, ([place]) - Partner's ethnicity: White (Northern ), - Patient and/or partner did not report -Irish, , Mediterranean, Ashkenazi Scientologist and/or Wallisian-Moldovan/Cajun ancestries unless noted above. - Patient and partner are NOT consanguineous The remainder of the known family history is negative for infertility, recurrent loss, stillbirth, unexplained infant , defects, malformation syndromes, chromosomal abnormalities, metabolic disorders, developmental delay, intellectual disability, known or suspected genetic disea ses, and consanguinity except as noted above and on the formal pedigree. GENETIC COUNSELING/DISCUSSION: Ms. Alarcon is referred for genetic counseling secondary to cardiac defect consistent with Ebstein's malformation. She also has a personal history of Neurofibromatosis type 1 (NF1). Of note, Ms. Alarcon reports that she has difficulty with learning, secondary to her diagnosis of NF1. Mr. Teixeira indicated that he has a diagnosis of Asperger syndrome and I am uncertain of his level of understanding during today's visit. Mr. Teixeira's mother, Emmanuelle, was able to join the session today which was very helpful. She reports that the couple live with her and she is clearly a great support to the couple during this time. EBSTEIN'S ANOMALY From the [employer]: Ebstein s anomaly is a malformed heart valve between the rightupper and lower heart chambers that does not properly close to keep the blood flow moving in the right direction. Blood may leak back from the lower to upper chambers on the right side of the heart. This may result in significant enlargement of the right heart chamber. In more extreme cases the size of the right ventricle (larger, lower chamber) is too small to allow for enough blood to go to thelungs. This syndrome also is commonly seen with an atrial septal defect, or ASD (or a hole in the wall dividing the two upper chambers of the heart). Approximately 30% of individuals with Ebstein anomaly have Hjlua-Npvoibedo-Nspsf syndrome. Symptoms can vary from mild to very severe. Some people may not have any symptoms, or symptoms may develop later in life. The symptoms that may appear shortly after include bluish-colored lips and nails due to low blood oxygen levels. If severe, the baby may have trouble breathing and feeding. Symptoms in older children include cough, failure to grow, fatigue, rapid breathing or shortness of breath, fast heartbeat, or heart rhythm problems. If the valve abnormality is especially severe, the child may have decreased stamina, fatigue, cyanosis, and sometimes fluid retention, which may lead to heart failure. Ebstein anomaly occurs in approximately 1 to 5 per 20,000 live births and accounts for less than one percent of congenital cardiac disease. While the majority of cases are sporadic, familial cases have been described. Recurrence risk is 1% when one sibling is affected and 3% when two siblings are affected. Ebstein anomaly has been reported in microdeletion syndromes including 1p36 and 8p23.1. I discussed with the couple and Emmanuelle that given Mr. Teixeira' personal history of Asperger syndrome and family history of Asperger syndrome, epilepsy and a congenital cataract, suspicion is raised for a potential underlying genetic etiology between the family history and the cardiac defect.Emmanuelle indicated that both of her sons had prior testing for fragile X syndrome which returned with negative results. She is uncertain if additional genetic testing was performed. Using illustrations, I reviewed genes and chromosomes and discussed the possibility of a chromosomal abnormality, such as deletion or duplication, or a single gene disorder, that may be present in the family. The option to pursue additional genetic testing for Mr. Teixeira was reviewed and declined by Emmanuelle. screening and diagnostic testing options to include noninvasive screening ([id number], MaterniT Genome) as well as amniocentesis was reviewed. The associated risks, benefits and limitations of the tests were reviewed. Ms. Alarcon declined the amniocentesis procedure. She indicated that she would be interested in proceeding with MaterniT Genome and I let her know thatI would confirm with the lab that she would not receive a balance billed from her Medicaid insurance. Ms. Alarcon was in agreement with this plan and I will follow-up by phone when further information is available. NEUROFIBROMATOSIS TYPE 1 Ms. Alarcon has a personal and family history of neurofibromatosis type 1. Neurofibromatosis type I (NF1) is a genetic disorder characterized by multiple caf au lait macules, axillary or inguinal freckling, cutaneous neurofibromas, Lisch nodules and plexiform neurofibromas. Learning disabilities are present in approximately 50% of individuals. Additional findings can include optic nerve and central nervous system gliomas, malignant peripheral nerve sheath tumors, scoliosis, tibial dysplasia and vasculopathy. Diagnostic criteria have been established by the National Institutes of Health (NIH) and are met inan individual who has two or more of the following features: 6 or more caf au lait macules >5mm in greatest diameter in prepubertal individuals and >15mm in greatest diameter in post pubertal individuals Two or more neurofibromas of any type or one plexiform neurofibroma Freckling in the axillary or inguinal regions Optic glioma Two or more Lisch nodules A distinctive osseous lesion such as a sphenoid dysplasia or tibial pseudoarthrosis A first-degree relative with NF1 is defined by the above criteria Neurofibromatosis type 1 is caused by pathogenic variants in the NF1 gene and follows an autosomal dominant pattern of inheritance. Approximately 50% of individuals diagnosed with NF1 have an affected parent and 50% have the disorder as a result of a de truman mutation. An individual affected with NF1 would a have a 50% chance of passing on the disorder with each . The severity of the disorder can vary among affected individuals. Ms. Alarcon stated that she was interested in testing the baby for NF1 after . diagnosis was declined. As I have been unable to locate a copy of her genetic test result, I let her knowthat I would reach out to [facility] to see if a result is available from her previous testing or for her son (Donte Bee : 09/26/2014, ). I will also speak with my Medical Genetics colleagues regarding the best plan for further evaluation of the baby and coordination of genetic testing after , since will be delivering at [facility]. I let the couple know that I would assist in coordination of a plan after and follow-up when additional information is known. Ms. Alarcon was in agreement with this plan. Of note, a discussion regarding carrier screening was also attempted during today's visit. Unfortunately, this discussion seemed only to confuse Ms. Alarcon therefore it was not continued. SUGGESTIONS/PLAN: 1) Pablo Alarcon is a 28 year old female referred by Viola Somers MD for genetic counseling to discuss ultrasound findings consistent with a cardiac defect. She is also known to have a personal history of Neurofibromatosis type 1 (NF1). 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 Ebstein anomaly is typically sporadic although in some instances familial cases have been reported. Associations with a microdeletion syndrome have also been reported. 3) 's son from a previous relationship is reported to have autism. Ms. Alarcon's partner, Mr. Teixeira, reports a diagnosis of Asperger syndrome in himself and his brother. Mr. Teixeira' mother, Emmanuelle, has a history of epilepsy and a congenital cataract. Given the family history, I discussed with the couple that there may be an underlying genetic etiology between the cardiac defe ct and the family history concerns. 4) Amniocentesis was declined. 5) When asked, Ms. Alarcon cannot confirm that noninvasive screening was previously performed. The option to pursue [id number] vs MaterniT Genome was reviewed. Ms. Alarcon indicated that she would be interested in pursuing MaterniT Genome but had questions regarding her insurance coverage. Discussion with [employer] billing following today's visit reveals an estimated ehf-av-[id number] of zero dollars, given her [place] Medicaid insurance. I will follow-up with to see if she would like to proceed with testing given this estimate. 6) Mr. Teixeira reportedly had negative testing for fragile X syndrome in the past. It is unclear ifany additional genetic testing was pursued given his diagnosis of Asperger syndrome. The option forfurther evaluation and consideration of genetic testing was declined by Mr. Teixeira mother. 7) Ms. Alarcon has a personal and family history of NF1. She desires to have this baby tested after . A copy of a prior genetic test result documenting the familial variant for NF1 is not available to review. Will reach out [facility] to see if a copy can be obtained for coordination ofpostnatal testing of the baby. 8) Will discuss Ms. Alarcon's diagnosis and upcoming delivery at [facility] with my Medical Genetics colleagues to determine the best approach for further evaluation and coordination of genetic testing for the baby after . Will follow-up with Ms. Alarcon by phone when further information is available. 9) Carrier screening was not fully discussed as appeared to be confused after discussions regarding the cardiac defect and NF1. Thank you for allowing me to participate in Ms. Alarcon's care. Please feel free to contact me if either you or the family has questions, or concerns. The patient was seen for a total of 60 minutes, greater than 50% of which was spent cqwe-jn-[id number] counseling. This plan is being carried out under the oversight of Dr. Ирина Cortez. This note will also be sent to the referring provider via the electronic medical record. Lashell Mccracken MS, [facility] [place], Certified Genetic Counselor MEDICAL REFERENCES: [place] [employer] Association: https://www.heart.org/en/health-topics/tdzaevbmms-cedgu-sntnjnp/about-co peumjgkl-cyijx-ecqxwyb/ebsteins-anomaly Dayami SPEARS. Neurofibromatosis 1. 1997Apr 08 [Updated 2021Oct 26]. In: Gabriel MP, Keren J, Aracely GM, et al., editors. Inkomerce [Internet]. [place] ([place]): [facility]; 1208-5346. Available from: https://www.ncbi.nlm.nih.gov/books/OTJ4320/ EPIC CC: Dr. Viola Somers, JOSEPH and Referring Physician Toya Wilkerson, MOSHE and Shovel Mechanic Dr. Irving Castillo, Pediatric Cardiology Michell Avalos APRN, CN Dr. Ирина Cortez (Splunk Architect) documented in [facility]Gen[facility]11-[facility]24 NoteHNO ID: [id number] Author: LASHELL MCCRACKEN LGC Service: ? Author Type: Genetic Counselor Type: Progress Notes Filed: 06/05/2024 07:09 Note Text: Summary: Cardiac Defect; Maternal Neurofibromatosis Type 1 REPRODUCTIVE GENETIC COUNSELING INITIAL VISIT Pablo Alarcon : 1995 Above identifiers confirmed by Lashell Mccracken MS, [facility] Consultation requested by: Viola Somers MD Date of clinic visit: May 25, 2024 Unit Nurse offered/present: No Ms. Alarcon is seen via a virtual Distance Health visit today via [employer] platform per patient choice. The visit is conducted synchronously in real-time. I have communicated my name and active licensure. The patient's identity and physical location were verified at the time of this visit. Either the patient or their legal promotional representative has been informed of the risks and benefits of -- and alternatives to -- treatment through a remote evaluation and consents to proceed with the evaluation remotely. PRESENTING PROBLEM: Pablo Alarcon is a 28 year old female referred by Viola Somers MD for genetic counseling to discuss ultrasound findings consistent with a cardiac defect. She is also known to have a personal history of Neurofibromatosis type 1 (NF1). She was accompanied to the visit today by her partner, Mr. Grant Teixeira, and Mr. Teixeira's mother, Emmanuelle. REPRODUCTIVE HISTORY: Currently : Yes / 30w6d (by US) JOE: 07/28/2024 Plans to deliver at [facility] history: 1. 09/26/2024: 41w6d vaginal delivery, male, 6 pounds 9 ounces. This was with a different partner. Ms. Alarcon's son reportedly does NOT have NF1. He is 9-years-old and has been diagnosed with autism. He requires additional assistance at school and participates in both occupational and speech therapy. 2. Current . Ms. Pablo Alarcon's Carrier Screen Results: Not performed. exposures: - vitamins or other folate supplementation: Yes - Prescription medicines: Labetalol, Nifedipine, Keppra. Zoloft was stopped per Ms. Alarcon as it made her feel ill. - OTC medicines, herbal medicines, other supplements: Tylenol, Aspirin - Tobacco, alcohol, or illicit drugs: No - Maternal infections or fevers: No - Other known/suspected human teratogens: No Aneuploidy screening: It is unclear if noninvasive screening has been completed. The couple is unable to clarify this today. A result could not be identified in the medical record. Ultrasounds: - Anatomy scan at 29w0d gestation (performed 05/12/2024): 29w0d by scan. The right ventricle and right atria appear subjectively larger than left. The anterior leaflet of the tricuspid valve appears subjectively larger and more hyperechoic than expected. The overall cardiac structure appears grossly normal. No other malformations were visualized on detailed anatomic survey, some views suboptimal due to position and late gestational age. - Echocardiogram at 29w6d gestation (performed 05/18/2024): Ebstein's anomaly of the tricupid valve with apical displacement of the tricupsid valve and tethering of the septal leaflet. Moderate to severe tricuspid regurgiation. CVS: Not Applicable Amniocentesis: Discussed today and declined. complications: - Maternal diabetes, hypertension, seizures, other illness: See below. - Vaginal bleeding, labor, other complications: No - Decreased movement: Unknown SIGNIFICANT PAST MEDICAL/SURGICAL HISTORIES: Ms. 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 She is followed by Neurology on a routine basis. Ms. Alarcon believes that genetic testing for NF1 has been performed for her and her son, but documentation of results cannot be located in the medical records. She is also reported to have a pyloric stenosis requiring surgical repair at 2 months of age. FAMILY HISTORY: A 3-generation pedigree was obtained for the patient and her partner and will be scanned into patient's EMR. Of note: - Genetic and/or Inherited Disease: Mother, brother, sister, maternal half-brother and maternal half-nephew with NF1. Maternal grandmother with suspected NF1. - Common Disorders: Father from suspected aortic aneurysm at 45 years of age following a motor vehicle accident. Mother from possible drug abuse vs cardiac disease. - Defects: None - Seizures: None (unless associated with NF1) - (more content not included)...[facility]11-18-2024 Telephone encounter Note* Telephone Encounter - Britney Valdivia RN - 05/25/2024 11:44 AM EST Patient 30w6d is scheduled for BPP tomorrow. Please file pended order. Britney Valdivia RN [facility]-11-[facility] Telephone encounter Note* Telephone Encounter - Toya Wilkerson RN - 05/18/2024 3:00 PM EST In to meet Jamar at the request of Dr Castillo to introduce myself as healthcare analyst [facility]. Discussion of the services offered including support, education, coordination of care and appointment scheduling. I helped her create a My Chart account and instructed her on the use. Pablo was very appreciative my assistanceMy contact information was provided and Pablo was invited to call with any questions or concerns. Also reviewed the multi-disciplinary team meetings in which patient's case will be discussed to optimize care planning. Patient's questions answered to the best of my ability. [facility]11-11-2024 Miscellaneous Notes* Telephone Encounter - Toya Wilkerson RN - 05/18/2024 3:00 PM EST In to meet Jamar at the request of Dr Castillo to introduce myself as healthcare analyst [facility]. Discussion of the services offered including support, education, coordination of care and appointment scheduling. I helped her create a My Chart account and instructed her on the use. Pablo was very appreciative my assistanceMy contact information was provided and Pablo was invited to call with any questions or concerns. Also reviewed the multi-disciplinary team meetings in which patient's case will be discussed to optimize care planning. Patient's questions answered to the best of my ability. documented in this encounterGenesis Hospital11-11-2024 NoteHNO ID: [id number] Author: IRVING CASTILLO MD Service: ? Author Type: Physician Type: Progress Notes Filed: 05/18/2024 15:14 Note Text: NAME: Pablo Alarcon [facility] Number.: [id number] Date of : 1995 Date of Visit: May 18, 2024 Referring Provider: Viola Somers MD Dear Viola, Consultation requested for an opinion regarding Pablo Alarcon. My final recommendations will be communicated back to the requesting physician by way of shared Medical record or letter to requesting physician via [place] mail. Ms. Pablo Alarcon was seen for echocardiogram and pediatric cardiology consultation on May 18, 2024. She is a 28 year old woman, at 29 6/7 weeks gestation referred due to enlarged right atrium and ventricle and abnormal tricuspid valve seen on recent ultrasound. She has had genetic screening with NIPT at outside facility and reports that the results were low risk. She herself has past medical history significant for Neurofibromatosis. There is no family history of congenital heart disease. Echocardiogram Summary: 1. Segmental anatomy and situs are normal. 2. 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 Moderate to severe tricuspid regurgiation. 3. Right ventricular pressure is estimated by TR jet velocity to be 56 mmHg plus right atrial V-wave. 4. Dilated right atrium. 5. Widely patent foramen ovale with right to left shunting. 6. Right ventricle is dilated and mildly hypertrophied with normal systolic function. 7. Normal left ventricular size and wall thickness with normal systolic function. 8. Normal main and branch pulmonary arteries. 9. Ductal arch is widely patent with normal intrauterine right to left flow. 10. Aortic arch is widely patent. 11. No pericardial effusion. 12. heart rhythm and rate are normal. Please see full echocardiogram report for complete details. Assessment and Plan: I discussed with Pablo and her partner, the , transitional, and post- circulation and the above mentioned findings using a cardiac diagram. I also explained the limitations of echocardiography. In particular, we discussed the difficulties in defining minor abnormalities of the septae, cardiac valves, pulmonary veins, and aortic arch as well as predicting changes in heart rhythm and function or persistence of the ductus arteriosus beyond the period. With a cardiac diagram, I explained the anatomy and pathophysiology of Ebstein's malformation. Ebstein's malformation of the tricuspid valve involves abnormal delamination of the tricuspid valve resulting in apical displacement of the valve. These findings are associated with a variable amount of tricuspid regurgitation, which in Pablo's case is moderate. Progressive tricuspid regurgitation often leads to significant right heart enlargement which may lead to congestive heart failure, hydrops, and/or intrauterine demise. I am pleased to see that there are no signs of hydrops today. Ebstein's malformation is associated with significant cardiomegaly which can lead to pulmonary hypoplasia. More severe forms of Ebstein's anomaly can be associated with decreased antegrade flow across the pulmonary valve which can lead to functional and sometimes true anatomic pulmonary valve stenosis or atresia. The presence of reverse ductal shunting in utero suggests inadequate degree of antegrade flow across the pulmonary valve. On today's study there is normal antegrade flow across the pulmonary valve and normal intrauterine right to left flow in the ductus arteriosus. Prenatally, and immediately postnatally, the pulmonary vascular resistance is increased. As the pulmonary resistance drops in the first few weeks of life, it can promote improved forward flow through the pulmonary valve. When the pulmonary resistance is elevated, there will likely be right to left shunting at the atrial level and cyanosis. As the pulmonary resistance drops, there will be less shunting at the atrial level and improvement of cyanosis. I do not anticipate the need for initiating PGE as there is adequate blood flow across the pulmonary valve. I do not anticipate the need for immediate intervention, however the baby will require close monitoring of saturations/PaO2, CXR, and ECG. I would anticipate an immediate echocardiogram and close monitoring in the NICU. The infant will likely require supplemental oxygen (anticipate cyanosis with saturations likely in the 70-80s), and may require intubation for ventilation and oxygenation issues. The repair for Ebstein's malformation has evolved recently with attempts made to repair the tricuspid valve. This elective repair is not performed in the period. There is a risk of arrhythmia, as wel (more content not included)...[facility]11-11-2024 History of Present illness Narrative* Irving Castillo MD - 05/18/2024 1:31 PM EST NAME: Pablo Alarcon CLINIC Number.: [id number] Date of : 1995 Date of Visit: May 18, 2024 Referring Provider: Viola Somers MD Dear Viola, Consultation requested for an opinion regarding Pablo Alarcon. My final recommendations willbe communicated back to the requesting physician by way of shared Medical record or letter to requesting physician via [place] mail. Ms. Pablo Alarcon was seen for echocardiogram and pediatric cardiology consultation on May 18, 2024. She is a 28 year old woman, at 29 6/7 weeks gestation referred due to enlarged right atrium and ventricle and abnormal tricuspid valve seen on recent ultrasound. She has had genetic screening with NIPT at outside facility and reports that the results were low risk. She herself has past medical history significant for Neurofibromatosis. There is no familyhistory of congenital heart disease. Echocardiogram Summary: 1. Segmental anatomy and situs are normal. 2. 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 Moderate to severe tricuspid regurgiation. 3. Right ventricular pressure is estimated by TR jet velocity to be 56 mmHg plus right atrial V-wave. 4. Dilated right atrium. 5. Widely patent foramen ovale with right to left shunting. 6. Right ventricle is dilated and mildly hypertrophied with normal systolic function. 7. Normal left ventricular size and wall thickness with normal systolic function. 8. Normal main and branch pulmonary arteries. 9. Ductal arch is widely patent with normal intrauterine right to left flow. 10. Aortic arch is widely patent. 11. No pericardial effusion. 12. heart rhythm and rate are normal. Please see full echocardiogram report for complete details. Assessment and Plan: I discussed with Pablo and her partner, the , transitional, and post- circulation andthe above mentioned findings using a cardiac diagram. I also explained the limitations of echocardiography. In particular, we discussed the difficulties in defining minor abnormalities of the septae, cardiac valves, pulmonary veins, and aortic arch as well as predicting changes in heart rhythm and function or persistence of the ductus arteriosus beyond the period. With a cardiac diagram, I explained the anatomy and pathophysiology of Ebstein's malformation. Ebstein's malformation of the tricuspid valve involves abnormal delamination of the tricuspid valve resulting in apical displacement of the valve. These findings are associated with a variable amount of tricuspid regurgitation, which in Pablo's case is moderate. Progressive tricuspid regurgitation often leads to significant right heart enlargement which may lead to congestive heart failure, hydrops, and/or intrauterine demise. I am pleased to see that there are no signs of hydrops today. Ebstein's malformation is associated with significant cardiomegaly which can lead to pulmonary hypoplasia. More severe forms of Ebstein's anomaly can be associated with decreased antegrade flow across the pulmonary valve which can lead to functional and sometimes true anatomic pulmonary valve stenosis or atresia. The presence of reverse ductal shunting in utero suggests inadequate degree of an tegrade flow across the pulmonary valve. On today's study there is normal antegrade flow across thepulmonary valve and normal intrauterine right to left flow in the ductus arteriosus. Prenatally, and immediately postnatally, the pulmonary vascular resistance is increased. As the pulmonary resistance drops in the first few weeks of life, it can promote improved forward flow throughthe pulmonary valve. When the pulmonary resistance is elevated, there will likely be right to left shunting at the atrial level and cyanosis. As the pulmonary resistance drops, there will be less shunting at the atrial level and improvement of cyanosis. I do not anticipate the need for initiating PGE as there is adequate blood flow across the pulmonary valve. I do not anticipate the need for immediate intervention, however the baby will require close monitoring of saturations/PaO2, CXR, and ECG. I would anticipate an immediate echocardiogram and close monitoring in the NICU. The infant will likely require supplemental oxygen (anticipate cyanosis with saturations likely in the 70-80s), and may require intubation for ventilation and oxygenation issues. The repair for Ebstein's malformation has evolved recently with attempts made to repair the tricuspid valve. This elective repair is not performed in the period. There is a risk of arrhythmia, as well as decreased right ventricular function and hydrops during . Approximately 20% of patients with Ebstein's anomaly will have Cnlei-Pqiugidua-Jputj syndrome associated with supraventricular tachycardia. Thus far there has been no evidence of dysrhythmias in Pablo's case. We will follow-up in 3-4 weeks to evaluate for right ventricular pressures, pulmonary valve morphology, right atrial enlargement, arrhythmias, and shunting direction through theductus arteriosus. Ultimately, the long-term prognosis is good for patients with this heart defect, however it does require life-long surveillance. We also know that any with complex congenital heart disease resulting in cyanosis and requiring open heart surgery in the first year of life may affect neurodevelopment and these patients are particularly at risk for (developmental and cognitive) learning disabilities. From a cardiac perspective, there is no need to offer changes with respect to the mode of delivery,either vaginal or by section. Pablo verbalized understanding of our discussion and her questions were answered. Delivery Recommendations: cardiac diagnosis: Ebstein's Anomaly with moderate-severe tricuspid regurgitation and normal antegrade pulmonary blood flow. Location of Delivery: [facility] Mode/timing of delivery: Per OB recommendations versus Expectant Induction PGE dependent cardiac lesion: No computer lab assistant/OR on standby: No Dedicated cardiac imaging team required in delivery room: No [place] disposition: NICU may remain for bonding in delivery room (discretion of neonatology team): Yes Umbilical lines: If clinically indicated Timing of echo: Day/Evening of delivery Thank you for allowing me to participate in the care of your patient and please do not hesitate to contact me if I can be any further assistance. I spent a total of 60 minutes on the date of the service which included preparing to see the patient, [id number] patient care, completing clinical documentation, obtaining and/or reviewing separately obtained history, counseling and educating the patient/family/caregiver, ordering medications, glenys ts, or procedures, communicating with other HCPs (not separately reported), communicating results to the patient/family/caregiver, and care coordination (not separately reported). Sincerely, Irving Castillo MD May 18, 2024 documented in this encounterGen[facility]11-11-2024 NoteHNO ID: [id number] Author: JONATHAN MANUEL MD Service: ? Author Type: Physician Type: Progress Notes Filed: 05/18/2024 13:35 Note Text: MFM Note S: The patient is a 28-year-old female, at 29 6/7 weeks of gestation with a history of chronic HTN and seizures, presenting for follow-up. The patient is currently and has a history of chronic HTN. She was previously on lisinopril, which was discontinued due to . She is currently taking labetalol 200 mg TID, but was recently instructed to increase the dosage to 400 mg TID following an ER visit at [facility] a few days ago due to elevated BP. She was seen by Dr. Somers the week prior who recommended 400 mg BID. However, she has not yet made this change. She also takes nifedipine. She reports feeling well and notes movement, though describes the baby as not very active. She denies any seizures and is currently managed on Keppra, with regular follow-up by her neurologist. She was previously on topiramate, which was discontinued. She mentions a family history of cardiac issues, including CAD and GA in her partner's grandmother, and unspecified heart problems in her own mother. She recalls being told by her family physician that her heart beats faster than it's supposed to. O: BP 143/99 Pulse 92 Ht 155.7 cm (5' 1.3) Wt 78.9 kg (174 lb) LMP 10/22/2023 (Approximate) BMI 32.56 kg/m? Gen well appearing. Psych mood good. Here with partner Guido. A/P Neurofibromatosis, type 1 (von Recklinghausen's disease) (HCC) Patient seen today. Reports doing well without seizure activity. Patient Chayo being followed by neurologist. Chronic hypertension affecting Patient did not fill Rx for Labetalol change but did get Nifedipine. Has been taking Nifedipine at 60 mg BID. The Labetalol was only taken at 200 mg TID and not the 400 mg Dosing. Plan No labs visible in care everywhere since 2018. Had labs in [facility] CBC, CMP and PC Ratio ordered today. Increase Labetalol to 400 mg TID Recheck BP at 400 mg TID in 1 week Would start testing at 30 weeks because of difficulty in control of BP No FH of congenital heart disease. Joanthan Manuel [facility]11-11-2024 History of Present illness Narrative* Jonathan Manuel MD - 05/18/2024 1:28 PM EST [facility] Note S: The patient is a 28-year-old female, at 29 6/7 weeks of gestation with a history of chronicHTN and seizures, presenting for follow-up. The patient is currently and has a history of chronic HTN. She was previously on lisinopril, which was discontinued due to . She is currently taking labetalol 200 mg TID, but was recently instructed to increase the dosage to 400 mg TID following an ER visit at [facility] a few days ago due to elevated BP. She was seen by Dr. Somers the week prior who recommended 400 mg BID. However, she has not yet made this change. She also takes nifedipine. She reports feeling well and notes movement, though describes the baby as not very active. She denies any seizures and is currently managed on Keppra, with regular follow-up by her neurologist. She was previously on topiramate, which was discontinued. She mentions a family history of cardiac issues, including CAD and GA in her partner's grandmother,and unspecified heart problems in her own mother. She recalls being told by her family physician that her heart beats faster than it's supposed to. O: BP 143/99 Pulse 92 Ht 155.7 cm (5' 1.3) Wt 78.9 kg (174 lb) LMP 10/22/2023 (Approximate) BMI 32.56 kg/m Gen well appearing. Psych mood good. Here with partner Guido. A/P Neurofibromatosis, type 1 (von Recklinghausen's disease) (HCC) Patient seen today. Reports doing well without seizure activity. Patient Chayo being followed by neurologist. Chronic hypertension affecting Patient did not fill Rx for Labetalol change but did get Nifedipine. Has been taking Nifedipine at 60 mg BID. The Labetalol was only taken at 200 mg TID and not the 400 mg Dosing. Plan No labs visible in care everywhere since 2018. Had labs in [facility] CBC, CMP and PC Ratio ordered today. Increase Labetalol to 400 mg TID Recheck BP at 400 mg TID in 1 week Would start testing at 30 weeks because of difficulty in control of BP No FH of congenital heart disease. Jonathan Manuel MD documented in this encounterGenesis Hospital11-11-2024 Nurse Note* Karma Phillips RN - 05/18/2024 1:17 PM EST Pt presents for CM visit. She states she only feels a couple of movements daily, and states this is not a change, it has been this way throughout this . She states she felt FM often during her last . Dr Manuel notified, and pt is aware of kick counts. She states her blood pressure was 153/108 this morning prior to her medications. During review, pt's SO stated she has only been taking 200 vs 400 mg of Labetalol. They are aware to increase to 2 tabs three x daily. I spoke to the pt's pharmacy and they said they will fill the folic acid and the new Labetalol prescriptions. Pt was notified. [facility]-11-[facility] Note* Karma Phillips RN - 05/18/2024 1:17 PM EST Pt presents for CM visit. She states she only feels a couple of movements daily, and states this is not a change, it has been this way throughout this . She states she felt FM often during her last . Dr Manuel notified, and pt is aware of kick counts. She states her blood pressure was 153/108 this morning prior to her medications. During review, pt's SO stated she has only been taking 200 vs 400 mg of Labetalol. They are aware to increase to 2 tabs three x daily. I spoke to the pt's pharmacy and they said they will fill the folic acid and the new Labetalol prescriptions. Pt was notified. documented in this encounterGenesis Hospital11-08-2024 Telephone encounter Note * Telephone Encounter - Negar Youssef RN - 05/15/2024 1:34 PM EST Anesthesia consult order to RR to complete. Negar Youssef RN [facility]11-08-2024 Miscellaneous Notes* Telephone Encounter - Negar Youssef RN - 05/15/2024 1:34 PM EST Anesthesia consult order to RR to complete. Negar Youssef RN * Telephone Encounter - Lizzette Galan MD - 05/15/2024 12:03 PM EST needs anesthesia consult, if plans to deliver in [place]. Lizzette Galan MD * Telephone Encounter - Negar Youssef RN - 05/15/2024 11:20 AM EST 29w3d Patient calling c/o elevated BP reading at home. BP was 152/102 and 158/105. Currently on aspirin, labetalol and Nifedipine. No vision changes, headache or RUQ pain today. She did have some RUQ pain last night though. Advised to L&D and L&D notified. Negar Youssef RN documented in this encounterGenesis Hospital11-08-2024 NoteHNO ID: [id number] Author: LIZZETTE GALAN MD Service: ? Author Type: Physician Type: Progress Notes Filed: 05/15/2024 13:26 Note Text: Patient on LANDD, neg preeclampsia labs. No symptoms of severe preeclampsia. BPs elevated. Increased labetalol to 400 mg tid and close f/u for preeclampsia. Has f/u w/ MFM and for echo on Saturday. Lizzette Galan [facility]11-08-2024 History of Present illness Narrative* Lizzette Galan MD - 05/15/2024 1:24 PM EST Patient on L&D, neg preeclampsia labs. No symptoms of severe preeclampsia. BPs elevated. Increased labetalol to 400 mg tid and close f/u for preeclampsia. Has f/u w/ MFM and for echo on Saturday. Lizzette Galan MD documented in this encounterGenesis Hospital11-08-2024 Telephone encounter Note * Telephone Encounter - Lizzette Galan MD - 05/15/2024 12:03 PM EST needs anesthesia consult, if plans to deliver in [place]. Lizzette Galan MD [facility] Work Phone: [phone]) 715-943011-08-2024 Telephone encounter Note* Telephone Encounter - Negar Youssef RN - 05/15/2024 11:20 AM EST 29w3d Patient calling c/o elevated BP reading at home. BP was 152/102 and 158/105. Currently on aspirin, labetalol and Nifedipine. No vision changes, headache or RUQ pain today. She did have some RUQ pain last night though. Advised to L&D and L&D notified. Negar Youssef RN [facility]11-08-2024 Telephone encounter Note* Telephone Encounter - Negar Youssef RN - 05/15/2024 11:15 AM EST 29w3d Called requesting refills. Previous were ordered by [facility] provider prior to transfer. Verified dosage too. Requested Prescriptions Pending Prescriptions Disp Refills labetalol (TRANDATE) 200 mg tablet 90 tablet 1 Sig: Take 1 tablet by mouth three times a day. NIFEdipine XL (ADALAT CC) 60 mg 24 hr tablet 60 tablet 1 Sig: Take 1 tablet by mouth two times a day. aspirin, enteric coated (ASPIRIN, ENTERIC COATED) 81 mg EC tablet 30 tablet 1 Sig: Take 1 tablet by mouth once daily. famotidine (PEPCID AC) 20 mg tablet 60 tablet 1 Sig: Take 1 tablet by mouth two times a day. Negar Youssef RN [facility]11-08-2024 Miscellaneous Notes* Telephone Encounter - Negar Youssef RN - 05/15/2024 11:15 AM EST 29w3d Called requesting refills. Previous were ordered by [facility] provider prior to transfer. Verified dosage too. Requested Prescriptions Pending Prescriptions Disp Refills labetalol (TRANDATE) 200 mg tablet 90 tablet 1 Sig: Take 1 tablet by mouth three times a day. NIFEdipine XL (ADALAT CC) 60 mg 24 hr tablet 60 tablet 1 Sig: Take 1 tablet by mouth two times a day. aspirin, enteric coated (ASPIRIN, ENTERIC COATED) 81 mg EC tablet 30 tablet 1 Sig: Take 1 tablet by mouth once daily. famotidine (PEPCID AC) 20 mg tablet 60 tablet 1 Sig: Take 1 tablet by mouth two times a day. Negar Youssef RN documented in this encounterGenesis Hospital11-06-2024 Telephone encounter Note * Telephone Encounter - Antoinette Franco RN - 05/13/2024 11:35 PM EST Patient calling with question regarding taking benadryl while and how often Patient deniesany new or worsening symptoms of which a provider is not aware:Yes . [facility]11-06-2024 Miscellaneous Notes* Telephone Encounter - Antoinette Franco RN - 05/13/2024 11:35 PM EST Patient calling with question regarding taking benadryl while and how often Patient deniesany new or worsening symptoms of which a provider is not aware:Yes . documented in this encounterGenesis Hospital11-05-2024 NoteHNO ID: [id number] Author: MICHELLE FRANCOIS MA Service: ? Author Type: Marine Diesel Mechanic Type: Progress Notes Filed: 05/12/2024 11:36 Note Text: Patient identified by name and date of . Pablo Alarcon presents today for a vaccination of Tdap. Patient denies an allergy to latex: yes Patient denies a severe (life-threatening) allergy to a previous dose of Tdap, DTP, DTaP, DT or Td vaccine. Yes Patient denies history of epilepsy or neurological problems: Patient has has seizures in the past but has had the tdap in the past with no reaction- per Dr Adama valdes to get tdap Patient is afebrile and denies being moderately or severely ill: Yes Patient denies history of Guillain-Hugo Syndrome (a severe paralytic illness): Yes Tdap Adacel injection was given without incident. See immunizations for details of immunizations administered today. VIS sheet provided: Yes Provider Kei was present in office at time of injection. Michelle Francois [facility]11-05-2024 History of Present illness Narrative* Michelle Francois MA - 05/12/2024 9:57 AM EST Patient identified by name and date of . Pablo Alarcon presents today for a vaccination of Tdap. Patient denies an allergy to latex: yes Patient denies a severe (life-threatening) allergy to a previous dose of Tdap, DTP, DTaP, DT or Td vaccine. Yes Patient denies history of epilepsy or neurological problems: Patient has has seizures in the past but has had the tdap in the past with no reaction- per Dr Adama valdes to get tdap Patient is afebrile and denies being moderately or severely ill: Yes Patient denies history of Guillain-Hugo Syndrome (a severe paralytic illness): Yes Tdap Adacel injection was given without incident. See immunizations for details of immunizations administered today. VIS sheet provided: Yes Provider Kei was present in office at time of injection. Michelle Francois MA documented in this encounterGenesis Hospital11-05-2024 Progress note* Quick Notes - Viraj Morales MD - 05/12/2024 9:48 AM EST KJ - VB No. LOF No. CTXS No. Movement: present. Other c/o: No. Medication list reviewed. Physical Exam See Flow Sheet Gen: no accute distress, well appearing A/P 29w0d Estimated Date of Delivery: 07/28/24 Flu & Tdap vaccines today Declines LARC CHTN - continue asprin, labetalol & procardia. NF1/Seizure disorder - continue keppra. Follows with neurology ( in [place]). MFM consult today and growth US - echocardiogram ordered Growth ultrasound in four weeks. Twice weekly testing at 32 weeks. PTL precautions reviewed, Kick counts reviewed. Viraj Morales MD [facility]11-05-2024 Miscellaneous Notes* Quick Notes - Viraj Morales MD - 05/12/2024 9:48 AM EST KJ - VB No. LOF No. CTXS No. Movement: present. Other c/o: No. Medication list reviewed. Physical Exam See Flow Sheet Gen: no accute distress, well appearing A/P 29w0d Estimated Date of Delivery: 07/28/24 Flu & Tdap vaccines today Declines LARC CHTN - continue asprin, labetalol & procardia. NF1/Seizure disorder - continue keppra. Follows with neurology ( in [place]). MFM consult today and growth US - echocardiogram ordered Growth ultrasound in four weeks. Twice weekly testing at 32 weeks. PTL precautions reviewed, Kick counts reviewed. Viraj Morales MD documented in this encounterGenesis Hospital11-05-2024 History of Present illness Narrative* Viola Somers MD - 05/12/2024 9:45 AM EST Images from the original note were not included. Commercial Leasing Manager [place] OUTPATIENT VISIT DATE May 12, 2024 OUTPATIENT VISIT TYPE CONSULT REFERRING PROVIDER: Michell Avalos CNM Recommendations from today's consultation will be conveyed through the electronic medical record. History of Present Illness: 28 year old at 29w0d with Estimated Date of Delivery: 1/21/25 presenting for consultation with [facility] in the setting of chronic hypertension. also complicated by history seizure disorder on Keppra, history neurofibromatosis type 1, history urinary tract dilation during this . She currently takes Labetalol 200mg three times daily and Nifedipine XL 60mg twice daily for hypertension. This was increased at a recent admission to [facility] (04/17-04/23) for severely elevatedBP and headache. Symptoms were believed to be due to chronic HTN exacerbation after significant work up to rule out superimposed severe preeclampsia. She reports diagnosis of hypertension at age 23, believes work up for secondary hypertension was done. She had been on either lisinopril or losartan pre- which was discontinued by her PCP when she learned of the . She did have a renal artery ultrasound at her recent [facility] admission 04/22/24 and normal. She also had echocardiogram which largely unremarkable, did note 1- 2cm localized pericardial effusion around the RV but no evidence of tamponade. This was not thought to be related to her presentation, not symptomatic. Pheochromocytoma evaluation was negative per hospital report. Today she feels very well, denies SOB, orthopnea, chest pain, headaches, RUQ pain or any other complaints. BP today normal range. A summary of recent admission/work up pasted below: Patient is a 28 y.o. at 27w3d who presents for [facility] visit to followup pending labs from recent admission. She has a complex medical history and was transferred from [place] to [facility] for severe HTN and MADRID and remained inpatient from 04/17-04/23. She had varied symptoms including MADRID, dizziness, and numbness. She was initially placed on magnesium and given BMZ while ruling out preeclampsia. History is complex in that she has CHTN and h/o migraines and was taken off meds at start of . She also has Neurofibromatosis with LUE deformity, scoliosis and optic glioma. History of seizures on Keppra. Her labs and 24hr urine were not indicative of superimposed preeclampsia, her ultrasound showed normal growth and testing was reassuring. She had normal TSH and normal orthostats. She hadseveral imaging studies including MRI/MRA, echocardiogram and had consults with neurology, cardiology and ENT. No acute/new findings on MRI except opacified sinus which ENT recommended flonase and possible surgery after . Echo with normal function and small asymptomatic pericardial effusion which cards recommended no additional management for except antihypertensives and followup in 3 months. She had normal renal duplex. She was managed on Procardia XL 60mg BID and Labetalol 200mg TID. Given no evidence of superimposed preeclampsia she was sent home. Workup for pheochromocytoma performed inpatient given HTN and NF and labs were pending at time of discharge. She has NF1 following with neurologist Dr Martinez in [facility], taking Keppra. 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 Had recent brain imaging in April due to headache which was reassuring. She has had multiple surgeries on her left upper extremity/elbow related to NF1. Her son has been tested and is negative. She believes her parents had hypertension and cardiac disease, although not aware of many details of their medical history. She denies any family history of congenital cardiac disease. 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 H/O pyloric stenosis 11/1995 s/p repair Learning disability IEP, reading and spelling MIGRAINE NOS W/O MENTN INTRACTABLE Stock Neurofibromatosis, type 1 (HCC) Stock Optic nerve glioma (HCC) Left eye Periodic limb movement does not inerfere with sleep Scoliosis Visual field constriction of right eye Past Surgical History: PAST SURGICAL HISTORY Procedure Laterality Date BOTOX INJECTION For migraines every 3 months pyloric stenosis 12/1995 UNLISTED PROCEDURE HUMERUS/ELBOW left elbow re-construction x 3 Medications: Current Outpatient Medications on File Prior to Visit Medication Sig folic acid 1 mg tablet Take 3 tablets by mouth once daily. nicotine (NICODERM) 7 mg/24 hr Apply 1 Patch as directed every 24 hours. NIFEdipine XL (ADALAT CC) 60 mg 24 hr tablet Take 60 mg by mouth once daily. sertraline (ZOLOFT) 50 mg tablet Take 50 mg by mouth once daily. vit/iron fum/folic ac (RIGHT STEP VITAMINS ORAL) Take by mouth. Gummy aspirin, enteric coated (ASPIRIN, ENTERIC COATED) 81 mg EC tablet Take 81 mg by mouth once daily. famotidine (PEPCID AC) 20 mg tablet Take 20 mg by mouth two times a day. labetalol (TRANDATE) 200 mg tablet Take 200 mg by mouth two times a day. levETIRAcetam (KEPPRA) 500 mg tablet Take 1,000 mg by mouth two times a day. iv contrast (will be provided with radiology test) MRI Brain Inject, intravenously, once for 1 [...] in the MR contrast administration guidelines link fluticasone (FLONASE) 50 mcg/actuation nasal spray Use 1 [place] in each nostril once daily. Allergies: ALLERGIES Allergen Reactions Acetaminophen Unknown Diphenhydramine Unknown Gabapentin Rash Ibuprofen Unknown Seasonal Allergies Cough Social History: Social History Tobacco Use Smoking status: Former Types: Cigarettes Passive exposure: Yes Smokeless tobacco: Never Tobacco comments: mom and dad smoke outside Substance Use Topics Alcohol use: No Drug use: No Family History: FAMILY HISTORY Problem Relation Age of Onset Asthma Mother Maternal side Cancer Mother Maternal side Diabetes Mother Maternal side other (Neurofibromatosis) Mother Cancer Father Paternal side Diabetes Father Paternal side Ischemic Heart Disease Father [place] Asthma Father Paternal side Hypertension Father Diabetes Maternal Grandmother Heart Maternal Grandmother other (Neurofibromatosis) Maternal Grandmother Heart Paternal Grandmother CHF Ischemic Heart Disease Paternal Grandmother other (Neurofibromatosis) Brother other (Neurofibromatosis) Brother other (Neurofibromatosis) Sister Review of Systems: Negative other than as noted above. Physical Exam: BP (P) 128/85 Wt 170 lb 3.2 oz (77.2 kg) LMP 10/22/2023 (Approximate) BMI 31.85 kg/m Gen: Well-appearing, no acute distress CV/Resp: Non-labored breathing on room air Abd: Gravid, non-tender Ext: Moving spontaneously, no significant edema b/l MR Brain and venogram 10/14/24 (performed due to headache): Negative MR venogram of the intracranial veins. Negative MR angiogram of the intracranial vessels. Negative unenhanced MR scan of the brain. Markedly abnormal appearance of the right maxillary sinus the sinuses completely opacified with marked bulging into the right nasal cavity. This may represent changes from mucocele or underlying polypoid lesion. Otherwise mild scattered mucosal thickening right ethmoid air cells. US today shows: The patient is referred for a detailed anatomic survey, transfer of care. - Single, live, intrauterine . - biometry is consistent with the established gestational age. - The right ventricle and right atria appear subjectively larger than left. The anterior leaflet ofthe tricuspid valve appears subjectively larger and more hyperechoic. The overall cardiac structureappears grossly normal. No other malformations were visualized on detailed anatomic survey, some views suboptimal due to position and late gestational age. - The amniotic fluid volume is normal amount. - The placenta is posterior. - Not all structural malformations can be detected by ultrasound examination. Assessment and Plan: 28 year old at 29w0d presenting for MFM consultation due to chronic hypertension on medication. Her is also complicated by NF1, seizure disorder, recent abnormal ultrasound. She is normotensive today with no evidence of acute complication. We discussed the risks of hypertension in , which include (but are not limited to) preeclampsia/eclampsia, end organ complications, CVA, growth restriction, stillbirth and need for premature delivery. We discussed recommendations including close assessment of BP daily with titration of medication to goal BP < 140/90, serial growth ultrasounds and testing in the third trimester, and delivery 37-39 weeks. Would favor early term in her case given recent hospitalization for severe range BP in third trimester requiring up-titration of medication. We discussed the implications of seizure-disorders in . In general outcomes are favorable with well controlled seizure disorder however risks have been correlated, particularly with poor control of seizure disorder in . Maternal/ risks of seizures in include (not limited to) potential for maternal harm or injury (based on activity at time of seizure onset, for example driving --> MVA) as well as risks including hypoxia, placental abruption, neurologic impairment secondary to hypoxia, asphyxia, and possible . Recommend she continueKeppra during and reviewed that serial evaluation of levels and dose adjustment will likely be required secondary to changes in volume of distribution in . Data on neurofibromatosis in is fairly limited however suggests that most NF patients candeliver safely. Some reports have correlated increased risk for miscarriage, loss and growth restriction. testing and surveillance will be planned based on hypertension on medication. Finally we discussed ultrasound today. Recommend echocardiogram for screening/evaluation. 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 Neurology follow up for further recommendations as well. Michell Avalos APRN.CNM Current Assessment & Plan No mention of this in MR report from [facility], available 04/20/24 Cardiovascular Chronic hypertension affecting Overview Taking Labetalol 200mg q12h and Nifedipine XL 60mg twice daily (up titrated [facility] admission 04/17-04/23) Secondary HTN work up on admission unremarkable, no evidence superimposed preeclampsia Growth US every 4 wk starting at 32wk Twice weekly testing at 32 weeks IOL 37-39w, would favor early term given hospitalization for exacerbation third trimester Current Assessment & Plan BP normal today Recommend home BP monitoring daily Up titrate labetalol goal BP < 140/90 BP review with MFM at next visit with echocardiogram Delivery 37-39 weeks Relevant Medications labetalol (TRANDATE) 200 mg tablet NIFEdipine XL (ADALAT CC) 60 mg 24 hr tablet Other Poor historian Overview Learning disability and unable to read.Difficult for patient to recall medical history, medication management, and diagnoses. Michell Avalos APRN.CNM Current Assessment & Plan 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 Prefers partner Natalie be informed of appointments and involved in Abnormal ultrasound Overview Previous UTD not noted 29 week ultrasound (05/12/24) RV/RA>LV/LA, echocardiogram ordered Repeat growth four weeks Other Visit Diagnoses Suspected anomaly, antepartum, single or unspecified fetus - Primary Relevant Orders ECHO Thank you for allowing us to participate in the care of this patient. Please do not hesitate to contact our office with any questions or concerns. Consultation requested by Michell Avalos CNM for an opinion regarding chronic hypertension, complications. My final recommendations will be communicated back to the requesting physician by way of shared Medical record or letter to requesting physician via US mail. I spent a total of 60 minutes on the date of the service which included preparing to see the patient, [id number] patient care, completing clinical documentation, obtaining and/or reviewing separately obtained history, counseling and educating the patient/family/caregiver, ordering medications, glenys ts, or procedures, and communicating with other HCPs (not separately reported). Viola Somers MD May 12, 2024 11:51 AM documented in [facility]Gen[facility]24 NoteHNO ID: [id number] Author: VIOLA SOMERS MD Service: ? Author Type: Physician Type: Progress Notes Filed: 05/12/2024 11:53 Note Text: Commercial [employer] [place] OUTPATIENT VISIT DATE May 12, 2024 OUTPATIENT VISIT TYPE CONSULT REFERRING PROVIDER: Michell Avalos CNM Recommendations from today's consultation will be conveyed through the electronic medical record. History of Present Illness: 28 year old at 29w0d with Estimated Date of Delivery: 07/28/24 presenting for consultation with [facility] at [facility] in the setting of chronic hypertension. also complicated by history seizure disorder on Keppra, history neurofibromatosis type 1, history urinary tract dilation during this . She currently takes Labetalol 200mg three times daily and Nifedipine XL 60mg twice daily for hypertension. This was increased at a recent admission to [facility] (04/17-04/23) for severely elevated BP and headache. Symptoms were believed to be due to chronic HTN exacerbation after significant work up to rule out superimposed severe preeclampsia. She reports diagnosis of hypertension at age 23, believes work up for secondary hypertension was done. She had been on either lisinopril or losartan pre- which was discontinued by her PCP when she learned of the . She did have a renal artery ultrasound at her recent [facility] admission 04/22/24 and normal. She also had echocardiogram which largely unremarkable, did note 1-2cm localized pericardial effusion around the RV but no evidence of tamponade. This was not thought to be related to her presentation, not symptomatic. Pheochromocytoma evaluation was negative per hospital report. Today she feels very well, denies SOB, orthopnea, chest pain, headaches, RUQ pain or any other complaints. BP today normal range. A summary of recent admission/work up pasted below: Patient is a 28 y.o. at 27w3d who presents for [facility] visit to followup pending labs from recent admission. She has a complex medical history and was transferred from [place] to [facility] for severe HTN and MADRID and remained inpatient from 04/17-04/23. She had varied symptoms including MADRID, dizziness, and numbness. She was initially placed on magnesium and given BMZ while ruling out preeclampsia. History is complex in that she has CHTN and h/o migraines and was taken off meds at start of . She also has Neurofibromatosis with LUE deformity, scoliosis and optic glioma. History of seizures on Keppra. Her labs and 24hr urine were not indicative of superimposed preeclampsia, her ultrasound showed normal growth and testing was reassuring. She had normal TSH and normal orthostats. She had several imaging studies including MRI/MRA, echocardiogram and had consults with neurology, cardiology and ENT. No acute/new findings on MRI except opacified sinus which ENT recommended flonase and possible surgery after . Echo with normal function and small asymptomatic pericardial effusion which cards recommended no additional management for except antihypertensives and followup in 3 months. She had normal renal duplex. She was managed on Procardia XL 60mg BID and Labetalol 200mg TID. Given no evidence of superimposed preeclampsia she was sent home. Workup for pheochromocytoma performed inpatient given HTN and NF and labs were pending at time of discharge. She has NF1 following with neurologist Dr Martinez in [facility], taking Keppra. 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 Had recent brain imaging in April due to headache which was reassuring. She has had multiple surgeries on her left upper extremity/elbow related to NF1. Her son has been tested and is negative. She believes her parents had hypertension and cardiac disease, although not aware of many details of their medical history. She denies any family history of congenital cardiac disease. 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 H/O pyloric stenosis 11/1995 s/p repair Learning disability IEP, reading and spelling MIGRAINE NOS W/O MENTN INTRACTABLE Stock Neurofibromatosis, type 1 (HCC) Stock Optic nerve glioma (HCC) Left eye Periodic limb movement does not inerfere with sleep Scoliosis Visual field constriction of right eye Past Surgical History: PAST SURGICAL HISTORY Proced (more content not included)...[facility]11-05-2024 Instructions* Patient Instructions* Frank Griffith MA - 05/12/2024 8:51 AM EST SEQUENTIAL SCREENINGS [facility] offers sequential screenings for women who are interested in screenings for chromosomal abnormalities and certain defects during a . The sequential screen combinesultrasound and blood tests to determine the risk of chromosomal abnormalities, including Down's Syndrome (Trisomy 21) and Trisomy 18, as well as open neural tube defects including spina bifida. Ultrasound examination is performed between 11 weeks and 13 weeks gestational age. Blood tests are drawn after the ultrasound and again later in the between 15 and 21 weeks gestational age. Please let your physician know if you are interested in this testing. It will require an appointment withour small electric engine technician. This is not an ultrasound performed by a physician in our office during a routine visit. SIGNS AND SYMPTOMS OF LABOR 1. Contractions every 10 minutes or more often 2. Clear, pink, or brownish fluid (water) leaking from vagina 3. Feeling that baby is pushing down, pressure 4. Low, dull backache 5. Cramps that feel like a period 6. Cramps with or without diarrhea If you notice any of the above symptoms, contact our office at [phone] and ask to speak with anurse. After hours, you can call doctors registry at [phone] OR call [facility] at [phone] ask to have the doctor supervisor home restoration service paged. If you consider this an emergency, dial 9-1- or go to your nearest emergency department. NEED HELP? Are you dealing with a violent or abusive relationship? Are you a victim of rape or sexual assult? Call [facility] ([place]) 24 hour Crisis Hotline: 282.295.7682 or 990-183-3980. MANUAL Your Guide to a Healthy manual is now on-line. Visit [email or web address] to download your free copy documented in this encounterGenesis Hospital10-23-[facility]24 Progress note* Quick Notes - Michell Avalos APRN.CNM - 04/29/2024 12:55 PM EDT [facility] visit, see progress note. Request OB record, will need to update history. Poor historian andlearning disability, unable to read. MFM consult. Need to follow up when next neurology appointmentis scheduled. Need PN labs and any baseline labs for CHTN. Physician only for management. Michell Avalos APRN.CNM [facility]10-23-[facility] Miscellaneous Notes* Quick Notes - Michell Avalos APRN.CNM - 04/29/2024 12:55 PM EDT [facility] visit, see progress note. Request OB record, will need to update history. Poor historian andlearning disability, unable to read. MFM consult. Need to follow up when next neurology appointmentis scheduled. Need PN labs and any baseline labs for CHTN. Physician only for management. Michell Avalos APRN.CNM documented in this encounterGenesis Hospital10-22-2024 Telephone encounter Note * Telephone Encounter - Britney Valdivia RN - 04/28/2024 3:39 PM EDT Patient called back and OB history updated. Patient was seen by Dr. Mcmillan's office in [place] for her first and delivered at [facility]. Records request faxed. Britney Valdivia RN [facility]10-[facility] Miscellaneous Notes* Telephone Encounter - Britney Valdivia RN - 04/28/2024 3:39 PM EDT Patient called back and OB history updated. Patient was seen by Dr. Mcmillan's office in [place] for her first and delivered at [facility]. Records request faxed. Britney Valdivia RN * Telephone Encounter - Sudhir Servin RN - 04/28/2024 3:28 PM EDT Patient has an appointment with MFM in 2 weeks. She had a new OB appointment with Michell Avalos on 04/24/2024. In Dr Lee's note on 04/17/2024 from [facility] states she is . We do not have any records of that . Please clarify and fill out OB history form for MFM appointment. Also assist her in getting records if indicated documented in this encounterGenesis Hospital10-22-2024 Telephone encounter Note * Telephone Encounter - Sudhir Servin RN - 04/28/2024 3:28 PM EDT Patient has an appointment with MFM in 2 weeks. She had a new OB appointment with Michell Avalos on 04/24/2024. In Dr Lee's note on 04/17/2024 from [facility] states she is . We do not have any records of that . Please clarify and fill out OB history form for MFM appointment. Also assist her in getting records if indicated [facility] Telephone encounter Note* Telephone Encounter - Pamela Lopez RN - 04/28/2024 10:15 AM EDT 1st risk assessment form submitted 04/28/24 Pamela Lopez RN [facility]10-22-[facility] Miscellaneous Notes* Telephone Encounter - Pamela Lopez RN - 04/28/2024 10:15 AM EDT 1st risk assessment form submitted 04/28/24 Pamela Lopez RN documented in this encounterGenesis Hospital10-18-2024 NoteHNO ID: [id number] Author: MCIHELL AVALOS APRN.CNM Service: ? Author Type: Customer Advocate Type: Progress Notes Filed: 05/04/2024 07:39 Note Text: INITIAL OB ASSESSMENT HPI: Pablo is a 28 year old White here to establish Obstetrical Care. LMP 10/22/2023 from OB Dating Form. was unplanned but accepted. Was seeing and transferred care. Came to [facility] for outpatient triage by and transferred to [facility] for management. Poor historian and learning disability. Does not read. Complaints: No Previous history: Prior : never History of 4th degree laceration: No History of shoulder dystocia: No History of Hypertensive disorders including pre-eclampsia or gestational hypertension: No History of gestational diabetes: No Patient's Risk Screening for delivery: Have you had a prior myers between 20w and 36w6d? No How many pregnancies have you had before? 2 Did you have a previous baby with a GBS Infection? YES Please select all that apply for any prior : N/A MEDICAL/PSYCHOSOCIAL HISTORY: History of hemorrhage or bleeding concerns: No Thyroid Disease: No History of chronic hypertension: Yes History of pre-existing diabetes: No Last Pap: Uncertain History of abnormal pap: No Prior treatment for cervical dysplasia: none. Last HPV: Uncertain History of STDs: None Partner History of STDs: None Did you have a partner with Herpes? No Tobacco use: No E-Cigarette/Vaping Use: Yes Caffeine use: Yes Drug use: No Alcohol use: No Multivitamin with Folic acid: Yes Would refuse blood transfusion if medically necessary: No Social Needs: How often does this describe you? I don't have enough money to pay my bills: Never Within the past 12 months, have you worried that your food would run out before you had money to buy more? Never In the past 12 months, has lack of reliable transportation kept you from going to medical appointments or work, or from getting things needed for daily living? Never In the past 12 months, have you had any concerns about having a place to live, or about the condition or quality of your housing? Never Would you like more information on any of the following (please check all that apply)? Not interested Social History: Do you have any history of depression, anxiety, PTSD, or other mood problems? Yes Do you have a history of abuse or trauma that may impact your experience? No Are you currently employed? No Depression/Anxiety Screening: denies, admits to symptoms of depression. OB Depression and Anxiety Screening- This Encounter (since 04/23/2024) None Genetic Screening: Partner present: No Patient verbalized knowledge of partner family health history: No Do you or your partner have any personal or family history of defects not previously discussed: No Do you have history of a complicated by anomaly, genetic condition, or demise: No Low Dose ASA Screening: Screening for low dose aspirin use for the prevention of pre-eclampsia: High risk factors: Chronic hypertension Moderate risk ractors: Sociodemographic characteristics ( race, low socioeconomic status) OB Risk Screening: Completed, no positive findings documented. 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 H/O pyloric stenosis 11/1995 s/p repair Learning disability IEP, reading and spelling MIGRAINE NOS W/O MENTN INTRACTABLE [place] Neurofibromatosis, type 1 (HCC) Stock Optic nerve glioma (HCC) Left eye Periodic limb movement does not inerfere with sleep Scoliosis Visual field constriction of right eye PAST SURGICAL HISTORY Procedure Laterality Date BOTOX INJECTION For migraines every 3 months pyloric stenosis 12/1995 UPPER ARM/ELBOW SURGERY UNLISTED left elbow re-construction x 3 Current Outpatient Medications Medication Sig Dispense Refill levETIRAcetam (KEPPRA) 500 mg tablet Take 500 mg by mouth twice daily. iv contrast (will be provided with radiology test) MRI Brain Inject, intravenously, once for 1 [...] in the MR contrast administration guidelines link 1 Each 0 TRIAMCINOLONE ACETONIDE NASAL Use in the nose once daily. naproxen sodium (ANAPROX) 220 mg tablet Take 220 mg by mouth daily at bedtime. medroxyPROGESTERone (DEPO-PRO (more content not included)...[facility]10-18-2024 History of Present illness Narrative* Michell Avalos APRN.[facility] - 04/24/2024 12:46 PM EDT INITIAL OB ASSESSMENT HPI: Pablo is a 28 year old White here to establish Obstetrical Care. LMP 10/22/2023 from OBDating Form. was unplanned but accepted. Was seeing and transferred care. Came to [facility] for outpatient triage by and transferred to [facility] for management. Poor historian and learning disability. Does not read. Complaints: No Previous history: Prior : never History of 4th degree laceration: No History of shoulder dystocia: No History of Hypertensive disorders including pre-eclampsia or gestational hypertension: No History of gestational diabetes: No Patient's Risk Screening for delivery: Have you had a prior myers between 20w and 36w6d? No How many pregnancies have you had before? 2 Did you have a previous baby with a GBS Infection? YES Please select all that apply for any prior : N/A MEDICAL/PSYCHOSOCIAL HISTORY: History of hemorrhage or bleeding concerns: No Thyroid Disease: No History of chronic hypertension: Yes History of pre-existing diabetes: No Last Pap: Uncertain History of abnormal pap: No Prior treatment for cervical dysplasia: none. Last HPV: Uncertain History of STDs: None Partner History of STDs: None Did you have a partner with Herpes? No Tobacco use: No E-Cigarette/Vaping Use: Yes Caffeine use: Yes Drug use: No Alcohol use: No Multivitamin with Folic acid: Yes Would refuse blood transfusion if medically necessary: No Social Needs: How often does this describe you? I don't have enough money to pay my bills: Never Within the past 12 months, have you worried that your food would run out before you had money to buy more? Never In the past 12 months, has lack of reliable transportation kept you from going to medical appointments or work, or from getting things needed for daily living? Never In the past 12 months, have you had any concerns about having a place to live, or about the condition or quality of your housing? Never Would you like more information on any of the following (please check all that apply)? Not interested Social History: Do you have any history of depression, anxiety, PTSD, or other mood problems? Yes Do you have a history of abuse or trauma that may impact your experience? No Are you currently employed? No Depression/Anxiety Screening: denies, admits to symptoms of depression. OB Depression and Anxiety Screening- This Encounter (since 04/23/2024) None Genetic Screening: Partner present: No Patient verbalized knowledge of partner family health history: No Do you or your partner have any personal or family history of defects not previously discussed: No Do you have history of a complicated by anomaly, genetic condition, or demise: No Low Dose ASA Screening: Screening for low dose aspirin use for the prevention of pre-eclampsia: High risk factors: Chronic hypertension Moderate risk ractors: Sociodemographic characteristics ( race, low socioeconomic status) OB Risk Screening: Completed, no positive findings documented. 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 H/O pyloric stenosis 11/1995 s/p repair Learning disability IEP, reading and spelling MIGRAINE NOS W/O MENTN INTRACTABLE Stock Neurofibromatosis, type 1 (HCC) Stock Optic nerve glioma (HCC) Left eye Periodic limb movement does not inerfere with sleep Scoliosis Visual field constriction of right eye PAST SURGICAL HISTORY Procedure Laterality Date BOTOX INJECTION For migraines every 3 months pyloric stenosis 12/1995 UPPER ARM/ELBOW SURGERY UNLISTED left elbow re-construction x 3 Current Outpatient Medications Medication Sig Dispense Refill levETIRAcetam (KEPPRA) 500 mg tablet Take 500 mg by mouth twice daily. iv contrast (will be provided with radiology test) MRI Brain Inject, intravenously, once for 1 [...] in the MR contrast administration guidelines link 1 Each 0 TRIAMCINOLONE ACETONIDE NASAL Use in the nose once daily. naproxen sodium (ANAPROX) 220 mg tablet Take 220 mg by mouth daily at bedtime. medroxyPROGESTERone (DEPO-PROVERA) 150 mg/mL injection Inject 150 mg intramuscularly every 12 weeks. TOPIRAMATE (TOPAMAX ORAL) Take 100 mg by mouth twice daily. 11/29 pt unsure of dose Takes 2 x daily diazePAM (VALIUM) 5 mg tablet Take 5 mg by mouth every 8 hours as needed. folic acid 1 mg tablet Take 1 mg by mouth once daily. fluticasone (FLONASE) 50 mcg/actuation nasal spray Use 1 [place] in each nostril once daily. IBUPROFEN/DIPHENHYDRAMINE CIT (ADVIL PM ORAL) Take by mouth as needed. ofloxacin 0.3 % otic solution Use 5 Drops in the left ear twice daily. (Patient not taking: Reported on 12/12/2017 ) 1 Bottle 0 Ibuprofen 200 mg cap Take 1-3 capsules by mouth as needed. No current facility-administered medications for this visit. Allergies As of Date: 04/24/2024 Allergen Noted Reaction ACETAMINOPHEN 11/20/2017 Unknown DIPHENHYDRAMINE 11/20/2017 Unknown IBUPROFEN 11/20/2017 Unknown SEASONAL ALLERGIES 12/12/2017 Cough Fully Assessed 12/12/2017 Does patient have penicillin allergy: No REVIEW OF SYSTEMS: GENERAL: Negative for: Fever or Chills HEENT: Negative for: Headache, Impaired Vision, Ringing in Ears, Nosebleeds NECK: Negative for: Swelling, Pain, Stiffness RESPIRATORY: Negative for: Cough, Shortness of breath, Wheezing GASTROINTESTINAL: Negative for: Heartburn, Constipation, Diarrhea, Blood in stool, Vomiting MUSCULOSKELETAL: Negative for: Muscle or joint pain, stiffness, Joint swelling NEUROLOGIC/PSYCHIATRIC: Negative for: Weakness, Paralysis, Numbness, Tingling, Tremor, Anxiety, Depression, Memory loss SKIN: Negative for: Rash, Itching GENITOURINARY: Negative for: vaginal itching, vaginal discharge, hematuria or dysuria SENSITIVE EXAM: Sensitive exam not performed. PHYSICAL EXAM: LMP 11/26/2009 BP 140/88 Ht 155.7 cm (5' 1.3) Wt 73.5 kg (162 lb) LMP 10/22/2023 (Approximate) BMI 30.31 kg/m GENERAL: pleasant in no apparent distress DERMATOLOGY: Normal, without lesions, non-icteric. Hirsutism on chin NECK: Supple, full range of motion, no adenopathy, and thyroid normal CHEST: Normal inspiratory effort BREAST: soft, non-tender, symmetric, no dominant mass, normal nipple-areolar complex, no lymphadenopathy, and no nipple discharge ABDOMEN: soft, non-tender, and no masses NEURO: alert and oriented x3,exam grossly non-focal 26 weeks, FHT 145 ASSESSMENT: 28 year old at Unknown wks gestational age PLAN: 1) Patient oriented to practice. Patient given new OB orientation folder. Discussed nutrition, folic acid supplementation, dietary guidelines, exercise, smoking, alcohol, caffeine, and drug use. 2) Request records from . 3) Did glucose testing at [facility], results negative and in Epic 4) Taking PNV and will add 3 grams Folic acid due to seizures. Recommend follow up with neurology and MFM referral placed. 5) Continue current BP medications and MFM consult. Not taking ASA. 6) Anatomy/growth US ordered for transfer of care. Follow up in 2 weeks or sooner prn. Michell Avalos APRN.CNM [facility] Instructions* Patient Instructions* Dalia Mendoza LPN - 04/24/2024 12:46 PM EDT Please select the following link to access the [facility] Your Guide to a Healthy . [email or web address] [facility] in [facility] Telephone encounter Note * Telephone Encounter - Irasema Mccormick - 04/24/2024 11:16 AM EDT I lm for patient to call for appt in 2-3 weeks hospital follow up. [id number] Miscellaneous Notes* Telephone Encounter - Irasema Mccormick - 04/24/2024 11:16 AM EDT I lm for patient to call for appt in 2-3 weeks hospital follow up. * Telephone Encounter - Marty Wallis MD - 04/24/2024 10:42 AM EDT We can see one time in office in 2-3 weeks * Telephone Encounter - GOMEZ Goetz CNP - 04/24/2024 8:17 AM EDT Patient will need hospital follow up. documented in this [facility]10-18-[facility]24 Telephone encounter Note* Telephone Encounter - Marty Wallis MD - 04/24/2024 10:42 AM EDT We can see one time in office in 2-3 weeks [facility] [employer] Work Phone: 1(470) 328-237310-18-2024 Telephone encounter Note* Telephone Encounter - GOMEZ Goetz CNP - 04/24/2024 8:17 AM EDT Patient will need hospital follow up. [facility] [id number] Nurse Note* Taylor Coleman RN - 04/23/2024 7:00 PM EDT 07:00pm discharged to home with thorough instructions, iv heplock removed, dry and intact., will follow up with physcian . No acute distress [facility] [id number] Nurse Note* Taylor Coleman RN - 04/23/2024 7:00 PM EDT 07:00pm discharged to home with thorough instructions, iv heplock removed, dry and intact., will follow up with physcian . No acute distress * Taylor Coleman RN - 04/23/2024 6:48 PM EDT 17:35 pt ride cancelled due to insurance., called dr. Rees. Rearranged another ride., will be here by 1900 * Jasmine Durand RN - 04/22/2024 9:51 AM EDT 0951: Pt begins drinking 50g glucose drink 0954: Pt finishes 50g glucose drink. RN will return in 1 hr for blood draw. * Melani Montejo RN - 04/19/2024 7:49 PM EDT Patient off unit at this time for MRI * Kelle Nathan RN - 04/18/2024 7:37 AM EDT Patient's 24 hour urine found to be sitting on patient's counter and not on ice. Dr. Campbell aware and restarted 24 hour urine this morning at 0730. documented in this [facility]10-17-[facility]24 Nurse Note* Taylor Coleman RN - 04/23/2024 6:48 PM EDT 17:35 pt ride cancelled due to insurance., called dr. Rees. Rearranged another ride., will be here by 1900 [facility] [id number] Note* Care Coordination - VIKTORIYA Ward - 04/23/2024 6:14 PM EDT [facility] [place] Lucky Sort santos requested a second time as rider stated that he does not take Patient's insurance. Patient told staff that she will wait for family to pick Patient up in an hour. [facility] [id number] Note* Care Coordination - VIKTORIYA Ward - 04/23/2024 6:14 PM EDT [facility] roberto graham requested a second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 mentions that she did not feel movement overnight but that it was because she was sleeping, discussed monitoring for movements when awake. Negative vaginal bleeding Negative LOF Negative Contractions Vitals: 04/22/24 0045 04/22/24 0143 04/22/24 0247 04/22/24 0346 BP: 125/91 112/66 113/73 136/90 Pulse: 92 85 76 98 Resp: Temp: TempSrc: SpO2: Weight: Height: FHT: 130s-140s, moderate variability Accels: present Decels: absent Contractions: none Physical Exam: Gen: NAD, at baseline HEENT: Normocephalic, Atraumatic, EOMI, MMM Resp: Normal Abd: soft, gravid, NTND, no rebound, no guarding. No RUQ pain or fundal tenderness Medications: Current Facility-Administered Medications Medication Dose Route Frequency Provider Last Rate Last Admin acetaminophen (Tylenol) tablet 650 mg 650 mg Oral q4h PRN Rosalia Schlieper, DO 650 mg at 04/21/24 2046 aspirin EC tablet 81 mg 81 mg Oral Daily Annemarie Gemma, DO 81 mg at 04/21/24 0825 calcium carbonate (Tums) chewable tablet 500 mg 500 mg Oral q6h PRN Annemarie Gemma, DO 500 mg at 04/21/24 0620 calcium gluconate 10 % injection 1 g 1 g IntraVENous PRN Rosalia Be DO carbamide peroxide (Debrox) 6.5 % otic solution 5 drop 5 drop Right Ear BID Blossom Reed, DO 5 drop at 04/21/242107 diphenhydrAMINE (BENADryl) injection 25 mg 25 mg IntraVENous q6h PRN Jasmina Wu, DO 25 mg at1 0047 diphenhydrAMINE (BENADryl) tablet/capsule 25 mg 25 mg Oral q6h PRN Aye Campbell, DO 25 mg at 04/21/24 0604 docusate sodium (Colace) capsule 100 mg 100 mg Oral BID PRN Annemarie Daugherty, DO 100 mg at 04/18/242153 famotidine (Pepcid) tablet 20 mg 20 mg Oral BID Annemarie Daugherty, DO 20 mg at 04/21/242045 fluticasone (Flonase) nasal spray 1 spray 1 spray Each Nostril BID Santhosh Miranda MD 1 spray at 04/21/242110 guaiFENesin (Mucinex) 12 hr tablet 600 mg 600 mg Oral BID PRN Rosalia Be DO 600 mg at 04/20/24 2100 influenza vaccine tiss-cult subunt (Flucelvax) STANDARD-DOSE injection 0.5 mL 0.5 mL IntraMUSCular Once Rosalia Be DO levETIRAcetam (Keppra) 100 MG/ML solution 1,000 mg 1,000 mg Oral Nightly Rosalia Be DO 1,000mg at 04/21/242057 nicotine (Nicoderm, Step 2) 14 MG/24HR patch 1 patch 1 patch TransDERmal Daily Silvana Villar DO1 patch at 04/21/24823 Followed by [START ON 05/30/2024] nicotine (Nicoderm, Step 3) 7 MG/24HR patch 1 patch 1 patch TransDERmal DailySilvana Villar DO NIFEdipine XL (Procardia XL) 24 hr tablet 60 mg 60 mg Oral Daily Blossom Reed DO NIFEdipine XL (Procardia XL) 24 hr tablet 60 mg 60 mg Oral Nightly Blossom Nwagwu, DO 60 mg at 04/21/242054 Non-Formulary Medication 1 Units Oral Daily Annemarie Gemma, DO ondansetron ODT (Zofran-ODT) disintegrating tablet 4 mg 4 mg Oral q8h PRN Rosalia Schlieper, DO Or ondansetron (Zofran) injection 4 mg 4 mg IntraVENous q6h PRN Rosalia Vaibhavlieper, DO 4 mg at 04/21/242206 penicillin V (Veetid) tablet 500 mg 500 mg Oral BID Annemarie Gemma, DO 500 mg at 04/21/242104 polyethylene glycol (PEG) 3350 (Miralax) packet 17 g 17 g Oral Daily PRN Annemarie Gemma, DO 17 g at 04/18/242154 vitamin tablet 1 tablet Oral Daily Rosalia Schlieper, DO sertraline (Zoloft) tablet 50 mg 50 mg Oral Daily Blossom Reed, DO 50 mg at 04/21/24 0825 sodium chloride 0.9 % infusion 5-250 mL/hr IntraVENous PRN Rosalia Schlieper, DO sodium chloride 0.9% (NS) flush 10 mL 10 mL IntraVENous 2 times per day Rosalia Schlieper, DO 10 mL at 04/18/242133 sodium chloride 0.9% (NS) flush 10 mL 10 mL IntraVENous PRN Rosalia Schlieper, DO Assessment/Plan: Pablo Alarcon is a 28 y.o. female 26w1d SIPEwSF vs cHTN exacerbation - Presented to OSH, had persistent severe range BP and acutely tx with 20mg IV labetalol - S/P magnesium sulfate x 24hrs for seizure ppx - S/P BMZ x2 04/17 - 04/18, Trending BGTs through steroid window - Know cHTN, her PCP had stopped previous medications when she found out she was - Current medications: Procardia 60mg XL BID, up titrated from 30mg XL BID due to persistently severe pressures requiring acute treatment and high mild range pressures - UPC 0.49 on admission, 24 hour urine protein WNL, CMP and CBC on 04/21 revealed normal plts, liver enzymes, and creatinine, Hgb 13.0, WBC 24.2, TSH normal - EKG NSR on 04/20; Sinus tach on 04/21 - The patient mentions that she has a headache on exam that has been stable, denies other symptoms. 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 - S/p Neuro consult, no acute neurologic changes or treatments - B12 normal, A1c 4.7, normal TSH - Flonase BID for symptom control, which has helped - Mentions a stable headache this morning and is at baseline Renal Abnormality - Resolved - Kidneys normal appearance on 04/20 growth, anatomy otherwise normal - 02/12 BPP on 04/20 Dental Problem - Dentist started her on PPX due to having a tooth pulled and concern for infection - PCN 500mg BID continued - Patient mentions that she had a blister pop while she was here but has not had any issues Asthma - Never hospitalized or intubated - Flonase for maxillary sinus lesion IUP @ 26w1d - Dating by first trimester US - Breech on 04/20 - Monitorinhr TID - Diet:General - BMZ x2 on 04/17-04/18 Further plan pending d/w attending. Santhosh Miranda MD 04/22/2024, 5:59 AM Associated attestation - Sandy Kennedy DO - 04/22/2024 4:13 PM EDT Hospital Care (Present): I was present with the resident during the history and exam. I discussed the case with the resident and agree with the findings and plan as documented in the resident's note. 28 y.o. yo at 26w1d hospital day 5 with: - CHTN exacerbation and NF1- on Procardia and Labetalol. NF and HTN assoc pheo. Metanephrines pending. Fetus 50% at riskof NF. Recommend genetics evaluation. Continue inpt care to assure BP stay well controlled on new medication regimen. At risk of developing superimposed preeclampsia, low s uspicion at this time based on physical exam and labs. - Tachycardia - cardiology evaluated. Recommend FU echo in 3 months. No additional concerns or recommendations. Cardiology consult completed and they signed off. - Dizziness - occluded right ear canal with impacted wax, treated with Dubrox drops and wax easily removed and now can see normal TM. Chart review and preparation: 18 minutes. Face to face: 15 minutes. Documentation and care coordination: 15 minutes. Total time spent on patient care today: 48 minutes. * Jasmina Wu DO - 04/21/2024 8:35 PM EDT Notified by RN of persistent severe range Bps, acutely treated with 20mg IV Labetalol. Repeat high mild range 156/99. Evaluated patient at bedside, neuro exam in tact, she denies difficulty breathingSOB. Her lungs are CTAB, heart sounds wnl. Giving her nighttime dose of Procardia XL 60mg now. Patient endorsing headache, giving Tylenol. She is on BP protocol now. Patient is s/p magnesium sulfate for seizure prophylaxis. Updated Dr. Kennedy via telephone call. May need to titrate her meds tonight, next step would be to add Labetalol 200 mg TID. Patient tachy to 107, EKG was obtained today and sinus tach present. Pulse most recently 97 and her BP is 132/95. Asked RN to place pulse ox, low concern for VTE given physical exam and vitals. Will continue to monitor vitals and symptoms closely * Santhosh Miranda MD - 04/21/2024 5:59 AM EDT Images from the original note were not included. Maternal Medicine Service Resident Progress Note 04/21/2024 5:59 AM 04/17/2024 Hospital Day: 5 Pablo Alarcon, 28 y.o. 26w0d Patient soundly asleep on initial evaluation. She denies any concerns overnight and does not have any questions. She does think that the Flonase has helped her breathing. She still has a minor headache, which she mentions seems like her chronic headaches. Denies RUQ pain, chest pain, sob. Positive movement Negative vaginal bleeding Negative LOF Negative Contractions Vitals: 04/20/24 1447 04/20/24 1502 04/20/24 1926 04/21/24 0030 BP: (!) 166/110 137/99 139/96 146/96 Pulse: (!) 138 107 97 98 Resp: 18 18 Temp: 36.7 C (98 F) 36.6 C (97.9 F) TempSrc: Oral Oral SpO2: 100% Weight: Height: FHT: 150, moderate variability Accels: absent Decels: absent Contractions: none Physical Exam: Gen: NAD HEENT: Normocephalic, Atraumatic, EOMI, MMM Resp: Normal Abd: soft, gravid, NTND, no rebound, no guarding. No fundal tenderness, no RUQ pain Medications: Current Facility-Administered Medications Medication Dose Route Frequency Provider Last Rate Last Admin acetaminophen (Tylenol) tablet 650 mg 650 mg Oral q4h PRN Rosalia Be, DO 650 mg at 04/20/24 1215 aspirin EC tablet 81 mg 81 mg Oral Daily Annemarie Daugherty, DO 81 mg at 04/20/24 0859 calcium carbonate (Tums) chewable tablet 500 mg 500 mg Oral q6h PRN Annemarie Daugherty DO 500 mg at 04/20/242057 calcium gluconate 10 % injection 1 g 1 g IntraVENous PRN Rosaliashannan Be, DO diphenhydrAMINE (BENADryl) tablet/capsule 25 mg 25 mg Oral q6h PRN Aye Campbell, DO 25 mg at 04/20/24228 docusate sodium (Colace) capsule 100 mg 100 mg Oral BID PRN Annemarie Guamanma, DO 100 mg at 04/18/242153 famotidine (Pepcid) tablet 20 mg 20 mg Oral BID Annemaire Gemma, DO 20 mg at 04/20/242058 fluticasone (Flonase) nasal spray 1 spray 1 spray Each Nostril BID Santhosh Miranda MD 1 spray at 04/20/242057 guaiFENesin (Mucinex) 12 hr tablet 600 mg 600 mg Oral BID PRN Rosaliashannan Be, DO 600 mg at 04/20/242099 influenza vaccine tiss-cult subunt (Flucelvax) STANDARD-DOSE injection 0.5 mL 0.5 mL IntraMUSCular Once Rosalia Be, DO levETIRAcetam (Keppra) 100 MG/ML solution 1,000 mg 1,000 mg Oral Nightly Rosaliashannan Be, DO 1,000mg at 04/20/242099 nicotine (Nicoderm, Step 2) 14 MG/24HR patch 1 patch 1 patch TransDERmal Daily Silvana Villar DO1 patch at 04/20/24 0901 Followed by [START ON 05/30/2024] nicotine (Nicoderm, Step 3) 7 MG/24HR patch 1 patch 1 patch TransDERmal DailyAbistephany Villar DO NIFEdipine XL (Procardia XL) 24 hr tablet 30 mg 30 mg Oral BID Rosalia Be, DO 30 mg at 04/20/242057 Non-Formulary Medication 1 Units Oral Daily Annemarie Daugherty, DO ondansetron ODT (Zofran-ODT) disintegrating tablet 4 mg 4 mg Oral q8h PRN Rosaliashannan Be, DO Or ondansetron (Zofran) injection 4 mg 4 mg IntraVENous q6h PRN Rosaliashannan Be, DO penicillin V (Veetid) tablet 500 mg 500 mg Oral BID Annemarie Gemma, DO 500 mg at 04/20/242058 polyethylene glycol (PEG) 3350 (Miralax) packet 17 g 17 g Oral Daily PRN Annemarie Gemma, DO 17 g at 04/18/242154 vitamin tablet 1 tablet Oral Daily Rosalia Schlieper, DO sertraline (Zoloft) tablet 50 mg 50 mg Oral Daily Blossom Reed, DO sodium chloride 0.9 % infusion 5-250 mL/hr IntraVENous PRN Rosalia Schlieper, DO sodium chloride 0.9% (NS) flush 10 mL 10 mL IntraVENous 2 times per day Rosalia Schlieper, DO 10 mL at 04/18/242133 sodium chloride 0.9% (NS) flush 10 mL 10 mL IntraVENous PRN Rosalia Schlieper, DO Assessment/Plan: Pablo Alarcon is a 28 y.o. female 26w0d SIPEwSF vs cHTN exacerbation - Presented to OSH, had persistent severe range BP and acutely tx with 20mg IV labetalol - S/P magnesium sulfate x 24hrs for seizure ppx - S/P BMZ x2 04/17 - 04/18, Trending BGTs through steroid window - Know cHTN, her PCP had stopped previous medications when she found out she was - Current medications: Procardia 30mg XL BID - UPC 0.49 on admission, 24 hour urine protein WNL - Blood pressure normotensive to mild range overnight - Asymptomatic this morning on exam - Will repeat CMP and CBC with TSH this am Neurofibromatosis Type 1 Hx Seizures Learning Disability Hx Migraines - Follows with Neurologist in [facility] - 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 Will plan to obtain on 04/20 - On chart review MRI in 2022 was stable from prior in 2018 - MRA, MRV, MR Brain(04/19): Stable brain imaging without new acute findings, however did see a lesion in the right maxillary sinus concerning for mucocele or polypoid lesion - S/p ENT consult who recommends FU in 3-6 months with her ENT, no acute surgical intervention while and mentions the lesion may resolve spontaneously . - S/p Neuro consult who ordered TSH, b12, and A1c and recommends IVSM, benadryl and reglan if headaches persist. - EKG NSR on 04/20 - Flonase BID for symptom control - Mentions a minor headache this morning but that she feel sit is similar to her chronic headaches,no other new neurologic findings - Echo ordered for today given headaches and dizziness to rule out cardiac cause Renal Abnormality - Patient-reported dilated kidneys on a previous scan, unable to view records - Kidneys normal appearance on 04/20 growth, anatomy otherwise normal - 02/12 BPP on 04/20 Dental Problem - Reported PCN started last week for dental problem but unsure if abscess - PCN 500mg BID continued - Will consult dental if symptoms persist, however no symptoms thus far Asthma - Never hospitalized or intubated - Flonase for maxillary sinus lesion IUP @ 26w0d - Dating by first trimester US - Breech on 04/20 - Monitorinhr TID - Diet:General - BMZ x2 on 04/17-04/18 Further plan pending d/w attending. Santhosh Miranda MD 04/21/2024, 5:59 AM Associated attestation - Sandy Kennedy DO - 04/21/2024 5:25 PM EDT Hospital Care (Present): I was present with the resident during the history and exam. I discussed the case with the resident and agree with the findings and plan as documented in the resident's note. 28 y.o. yo at 26w0d hospital day 4 with: - CHTN exerbation, low suspicion for preeclampsia at this time based on physical exam, lab evaluation, hx of cHTN and NF1. Continue close observation. Will titrate PO medications as BP continues to be above goal. If persistent severe range bp occurs, will need IV therapy. - NF1- check plasma metanepherines due to increased risk of pheochromocytoma. Renal duplex US ordered for tomorrow AM, plan for fasting overnight per radiology instructions. - Tachycardia - no evidence of VTE. Negative LE edema/ Rakel's on exam, no SOB. Check EKG, cardiology consult. Echo previously ordered and pending. - Dizziness - right ear canal occluded with impacted cerumen, recommend Dubrox drops - Pt requests to complete 1 hour gct tomorrow , will order. Chart review and preparation: 25 minutes. Face to face: 15 minutes. Documentation and care coordination: 10 minutes. Total time spent on patient care today: 50 minutes. * Santhosh Miranda MD - 04/20/2024 2:02 PM EDT Paged by Rn that the patient had a headache. Went to to bedside to evaluate. She mentions that she just has a headache and feels dizzy which has occurred intermittently for the past few weeks per thepatient. She also mentions that she does have dyspnea but that it is largely due to her sinuses. Denies chest pain or epigastric pain. She also denies visual changes and mentions that it is more related to dizziness. Neuro exam reveals one beat of clonus in the bilateral achilles, although 2+ in the patellas bilaterally. Strength and sensation intact. No other focal deficits noted. Will give Reglan for headache at this time and continue to monitor. Santhosh Miranda MD 04/20/2024 2:05 PM * Blossom Reed DO - 04/20/2024 5:51 AM EDT Images from the original note were not included. Maternal Medicine Service Resident Progress Note 04/20/2024 5:51 AM 04/17/2024 Hospital Day: 4 Pablo Alarcon, 28 y.o. 25w6d Patient has been seen and examined. Pt resting comfortably this morning and not disturbed. Vitals: 04/19/24 1229 04/19/24 1625 04/19/24 2105 04/20/24 0226 BP: 142/99 156/107 138/90 121/72 BP Location: Patient Position: Pulse: 102 99 111 97 Resp: 16 16 18 16 Temp: 36.7 C (98.1 F) 36.7 C (98.1 F) 36.6 C (97.8 F) 36.7 C (98 F) TempSrc: Oral Oral Oral Oral SpO2: 98% 97% Weight: Height: FHT: 150, moderate variability Accels: absent Decels: absentabsent Contractions: none Physical Exam: Gen: NAD, resting comfortably in bed HEENT: Normocephalic, Atraumatic Resp: No increased WOB, no respiratory distress Card: Regular rate Medications: Current Facility-Administered Medications Medication Dose Route Frequency Provider Last Rate Last Admin acetaminophen (Tylenol) tablet 650 mg 650 mg Oral q4h PRN Rosalia Schlieper, DO 650 mg at 04/19/242057 aspirin EC tablet 81 mg 81 mg Oral Daily Annemarie Gemma, DO 81 mg at 04/19/24 0931 calcium carbonate (Tums) chewable tablet 500 mg 500 mg Oral q6h PRN Annemarie Gemma, DO 500 mg at 04/19/242057 calcium gluconate 10 % injection 1 g 1 g IntraVENous PRN Rosalia Schlieper, DO diphenhydrAMINE (BENADryl) tablet/capsule 25 mg 25 mg Oral q6h PRN Aye Campbell, DO 25 mg at 04/20/249 docusate sodium (Colace) capsule 100 mg 100 mg Oral BID PRN Annemarie Gemma, DO 100 mg at 04/18/242153 famotidine (Pepcid) tablet 20 mg 20 mg Oral BID Annemarie Gemma, DO 20 mg at 04/19/242057 guaiFENesin (Mucinex) 12 hr tablet 600 mg 600 mg Oral BID PRN Rosalia Schlieper, DO 600 mg at 04/19/24 2100 influenza vaccine tiss-cult subunt (Flucelvax) STANDARD-DOSE injection 0.5 mL 0.5 mL IntraMUSCular Once Rosalia Schlieper, DO levETIRAcetam (Keppra) 100 MG/ML solution 1,000 mg 1,000 mg Oral Nightly Rosalia Schlieper, DO 1,000mg at 04/19/242058 magnesium sulfate 20 GM/500ML infusion 2,000 mg/hr IntraVENous Continuous Rosalia Schlieper, DO Stopped at 04/18/24 1500 nicotine (Nicoderm, Step 2) 14 MG/24HR patch 1 patch 1 patch TransDERmal Daily Silvana Aurea, DO1 patch at 04/19/24 0935 Followed by [START ON 05/30/2024] nicotine (Nicoderm, Step 3) 7 MG/24HR patch 1 patch 1 patch TransDERmal DailyAbigail Aurea, DO NIFEdipine XL (Procardia XL) 24 hr tablet 30 mg 30 mg Oral BID Rosalia Schlieper, DO Non-Formulary Medication 1 Units Oral Daily Annemarie Gemma, DO ondansetron ODT (Zofran-ODT) disintegrating tablet 4 mg 4 mg Oral q8h PRN Rosalia Schlieper, DO Or ondansetron (Zofran) injection 4 mg 4 mg IntraVENous q6h PRN Rosalia Schlieper, DO penicillin V (Veetid) tablet 500 mg 500 mg Oral BID Annemarie Gemma, DO 500 mg at 04/19/242057 polyethylene glycol (PEG) 3350 (Miralax) packet 17 g 17 g Oral Daily PRN Annemarie Gemma, DO 17 g at 04/18/242154 vitamin tablet 1 tablet Oral Daily Rosalia Schlieper, DO sodium chloride 0.9 % infusion 5-250 mL/hr IntraVENous PRN Rosalia Schlieper, DO sodium chloride 0.9% (NS) flush 10 mL 10 mL IntraVENous 2 times per day Rosalia Schlieper, DO 10 mL at 04/18/242133 sodium chloride 0.9% (NS) flush 10 mL 10 mL IntraVENous PRN Rosalia Schlieper, DO Assessment/Plan: Pablo Alarcon is a 28 y.o. 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 No associated enhancement or pathologic parenchymal or leptomeningeal enhancement elsewhere in brain, right optic nerve, optic chiasm and optic tracts appear within normal limits - Can consider Neurology consult if symptoms worsen, defer for now given stability of patient - MRA, MRV, MR Brain(04/19) largely negative of acute process Renal Abnormality - Patient-reported dilated kidneys on a previous scan, unable to view records - Growth ordered for 04/20 Dental Problem - Reported PCN started last week for dental problem, unsure if abscess - PCN 500 mg BID continued - Plan for dental consult today if symptoms persists Asthma - No hospitalizations/intubations IUP @ 25w6d - Dating \ US - Cephalic 04/17 - Monitorinhr TID - Diet:General - BMZ x2 on 04/17 - 04/18 Further plan pending d/w attending. Blossom Reed, DO 04/20/2024, 5:51 AM Associated attestation - Bere Durant MD - 04/20/2024 4:38 PM EDT MFM ATTENDING I have personally obtained a history and examined the patient on morning rounds. I agree with the assessment and plan as documented in the resident's note. The patient is a 28 y.o. 25w6d now HD#4, admitted for HTN, MADRID in context of complex medicalhistory. See my extensive note from admission. 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 She was transferred from [place] (receives her PNC in [place]) for MADRID and severe BP. She has known CHTN and was taken off her meds at the start of . She also has chronic migraines. She is s/p magnesium and BMZ for concern for possible preeclampsia. Very challenging to differentiate but since starting Procardia, Bps have been much improved. Labs are normal and 24hr urine protein is normal at 136mg. Therefore, I suspect this is likey related to her CHTN and h/o migraines rather than preeclampsia. Given her complex neuro history and neuro complaints, Neurology was consulted and imaging obtained with no concern for acute change in her NF. On MRI she was noted to have near occlusion of right sinus cavity and mucosal thickening. We were finally able to review her records from her OB and her neurologist. She has had low risk NIPT with [facility]. She understands the risk of 50% to her child and plans testing after like she did with her first son. She is not immune to rubella and otherwise labs are normal. Nobas[place] proteinuria assessment and has not been on bASA prior to this admission. She did indeed have HTN noted on records in 140s/90s. Today she reports an acute episode of dizziness. BP was normal at that time. EKG obtained and sinusrhythm. Orthostats not positive. Short lived and reports this has been going on for weeks. Her and FOB have a learning disability and she reports father has autism. She denies any other OB complaints or Preeclampsia symptoms. Vitals: 04/20/24 1502 BP: 137/99 Pulse: 107 Resp: Temp: SpO2: Alert and oriented, NAD RRR No MRG LUE deformity Gravid nontender abdomen Current Monitoring Plan: 1hr TID NST NST: reactive Ultrasound: Normal growth and anatomy: EFW 901g (53%), BPP 8/8. Breech Lab Results Component Value Date WBC 21.8 (H) 04/17/2024 HGB 11.3 (L) 04/17/2024 HCT 35.2 04/17/2024 MCV 83.6 04/17/2024 PLT 317 04/17/2024 Lab Results Component Value Date GLUCOSE 108 (H) 04/17/2024 CALCIUM 7.8 (L) 04/17/2024 NA 135 04/17/2024 K 3.9 04/17/2024 CO2 20 (L) 04/17/2024 CL 104 04/17/2024 BUN 7 04/17/2024 CREATININE 0.52 04/17/2024 Lab Results Component Value Date ALT 34 04/17/2024 AST 40 04/17/2024 ALKPHOS 190 (H) 04/17/2024 BILITOT 0.3 04/17/2024 24hr urine protein: 136mg Plan: Still have low suspicion for superimposed preeclampsia- has other conditions to explain her symptoms and known CHTN. Labs and 24hr urine protein negative. Consulted ENT and recommended flonase with possible surgical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 resuscitation, possible need for umbilical lines. Baby is a full resuscitation. Respiratory distress syndrome Feeding with NG tube and benefit of MBM. Mom plans on providing MBM. She consent to donor breast milk if needed. Fortification of MBM. Feeding readiness and growth expectations, Risk of Necrotizing enterocolitis Jaundice and phototherapy Apnea of prematurity and caffeine Possible need for transfusion Heart Murmur: PDA Neurodevelopmental Outcome and Risk: IVH Retinopathy of prematurity Hearing problems Risk of infection- early and late onset Skin to skin opportunities Physiologic criteria for discharge and timing of discharge estimate from NICU Potential need for transfer to [facility] if needs esclation of care, based on a varietyof factors. Handouts given. No further questions. A/P: Pablo is a 28 y.o at 26w1d with siPEC with SF vs cHTN exacerbation. S/p BMZ. She is expecting a baby boy, Nelson. She relayed that due to her learning disability and FOB with autism, if Nelson were to deliver early and require NICU admission, we were to communicate with their families present as they provide support and can explain in terms both her and FOB understand. 1. Current Management per OB 2. NICU to attend delivery 3. Call NICU if further questions. I spent 45 minutes in the preparation and completion of this consult with > 50% in direct communication with the patient. Tammy Godoy DO * Marty Wallis MD - 04/22/2024 1:33 PM EDTAssociated Order(s): IP CONSULT TO CARDIOLOGY [facility] Consult Note Reason for Consult/Chief Complaint: HTN Consulting MD: Dr. Durant History of Present Illness: Pablo Alarcon is a 28 y.o. female with neurofibromatosis, 26 week admitted for superimposed preeclampsia with significant HTN BP reaching 166/110 mmHg. She is known to have HTN on medications nifedipine 60 mg bid and in the hospital she is requiring labetalol, currently BP has improved to 142/98 mmHg. She reports feeling fine, no chest pain or SOB, no palpitations, dizziness or syncope. We obtained BP measurements in all 4 extremities which was consistent with symmetric measurements and appropriately higher BP in lower extremities/no drop in BP or BP deficit (L arm: 142/98, R arm: 137/97, L le/98, R le/98). Echo showed normal LV/RV, no valve disease, moderate pericardial effusion, on image review it appears small and echolucent at the RV free wall, no tamponade and trace effusion elsewhere. She has no pleuritic symptoms and asymptomatic. Renal Duplex was normal. Past Medical History: Past Medical History: Diagnosis Date Neurofibromatosis, type 1 (CMS/HCC) ([facility]) Past Surgical History: Past Surgical History: Procedure Laterality Date TONSILLECTOMY (HISTORICAL) Family History: No family history on file. Social History: Social History Tobacco Use Smoking status: Every Day Smokeless tobacco: Never Vaping Use Vaping status: Every Day Substances: Nicotine Medications: aspirin, 81 mg, Oral, Daily carbamide peroxide, 5 drop, Right Ear, BID famotidine, 20 mg, Oral, BID fluticasone, 1 spray, Each Nostril, BID influenza, 0.5 mL, IntraMUSCular, Once levETIRAcetam, 1,000 mg, Oral, Nightly nicotine, 1 patch, TransDERmal, Daily Followed by [START ON 05/30/2024] nicotine, 1 patch, TransDERmal, Daily NIFEdipine XL, 60 mg, Oral, Daily NIFEdipine XL, 60 mg, Oral, Nightly Non-Formulary Medication, 1 Units, Oral, Daily penicillin V, 500 mg, Oral, BID vitamin, 1 tablet, Oral, Daily sertraline, 50 mg, Oral, Daily sodium chloride 0.9%, 10 mL, IntraVENous, 2 times per day Allergies: Patient has no known allergies. Reviewed Review of Systems: All other systems were reviewed and are negative other than as noted in the HPI. Physical Examination: Vitals: Blood pressure 142/98, pulse 100, temperature 36.6 C (97.8 F), temperature source Oral, resp. rate 16, height 5' 1 (1.549 m), weight 170 lb (77.1 kg), SpO2 99%. No intake or output data in the 24 hours ending 04/22/24 1333 Wt Readings from Last 3 Encounters: 04/22/24 170 lb (77.1 kg) Neck: no JVD. No carotid bruits; No thyromegaly. Respiratory: Lungs are clear. No rales or wheezes. Respiratory effort is normal and symmetrical bilaterally; Good air movement bilaterally. Heart: RRR; Normal S1 and S2. no murmur; No rub; no gallop. Extremities/Skin: no LE edema; Skin warm to touch and well perfused Laboratory Tests: Results from last 7 days Lab Units 04/21/24 0603 04/17/242000 WBC AUTO 10*3/uL 24.2* 21.8* HEMOGLOBIN g/dL 13.0 11.3* HEMATOCRIT % 39.9 35.2 MCV fL 83.5 83.6 PLATELETS 10*3/uL 323 317 Lab Results Component Value Date GLUCOSE 96 04/21/2024 CALCIUM 9.3 04/21/2024 NA 132 (L) 04/21/2024 K 4.1 04/21/2024 CO2 20 (L) 04/21/2024 CL 105 04/21/2024 BUN 8 04/21/2024 CREATININE 0.49 (L) 04/21/2024 Lab Results Component Value Date HGBA1C 4.7 04/20/2024 Lab Results Component Value Date TSH 2.796 04/21/2024 Assessment/Plan HTN: initially uncontrolled, currently improved on labetalol and nifedipine, probably chronic HTN/exacerbated by gestational HTN, neurofibromatosis can be associated with HTN (workup is reasonable, BP measurements reassuring and no suggestive of aorta abnormalities such as mid aortic syndrome, renal arteries are normal, TSH was normal, renal function is normal, no proteinuria, metanephrines are pending). No heart failure. -continue antihypertensive per OB team and consider scheduled oral labetalol 200 mg bid or TID if needed for BP control Pericardial effusion: small, asymptomatic, no ECG changes/no pleuritic symptoms. -reassess as outpatient -consider repeat imaging for reassessment in 3 months We will sign off, please call us for questions Marty Wallis MD, FAC, FASE DATE of SERVICE: 04/22/2024 * Chelita Edward MD - 04/20/2024 12:43 PM EDTAssociated Order(s): IP CONSULT TO OTOLARYNGOLOGY [facility] [address] [facility] [id number] Dept phone: [phone] Pablo Alarcon [id number] Assessment and Recommendations Chronic maxillary sinusitis Right nasal polyposis Nasal endoscopy today - moderate inferior turbinate hypertrophy. Septum mildly deviated to the right. Decreased view of right middle meatus due to deviation but there is benign appearing nasal polyp that reaches the nasal floor. No purulence or significant swelling. Left middle meatus clear withoutinfection, swelling, or polyposis. The right nasal polyps appear overall benign and the rightward septal deviation could be the anatomic etiology. She also endorses seasonal allergies. I recommend flonase nasal spray 1 spray to each nostril 2 times per day as long as there are no other contraindications for her or baby. 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 However, this is nonurgent and can wait until after delivery. She has seen ENT in [place] previously and would like to follow up there, I recommend in 3-6 months. Chelita Edward MD Subjective This is a 28 y.o. old female admitted for headache work up and found to have sinus abnormalities onMRI. ENT consulted for further evaluation of sinus imaging findings. Patient reports she's never had major issues with her sinuses before. She has some seasonal allergies but nothing major. She has used flonase nasal spray in the past but not recently. Her nose only started bothering her in 2nd trimester. She feels very congested at night but this gets better as shegets up and starts moving during the day. She denies nasal drainage, postnasal drip, midface pressure. Medications aspirin, 81 mg, Oral, Daily famotidine, 20 mg, Oral, BID influenza, 0.5 mL, IntraMUSCular, Once levETIRAcetam, 1,000 mg, Oral, Nightly nicotine, 1 patch, TransDERmal, Daily Followed by [START ON 05/30/2024] nicotine, 1 patch, TransDERmal, Daily NIFEdipine XL, 30 mg, Oral, BID Non-Formulary Medication, 1 Units, Oral, Daily penicillin V, 500 mg, Oral, BID vitamin, 1 tablet, Oral, Daily [START ON 04/21/2024] sertraline, 50 mg, Oral, Daily sodium chloride 0.9%, 10 mL, IntraVENous, 2 times per day Allergies No Known Allergies Problem List Patient Active Problem List Diagnosis labor in second trimester without delivery Objective Physical Exam Constitutional - alert, no acute distress, non-toxic appearing. Voice - strong and clear without breathiness. Face - normocephalic, atraumatic Eyes - normal appearing conjunctiva, no icterus Nose - normal external appearance, inferior turbinates with moderate hypertrophy, no drainage or crusting, septum mildly deviated Respiratory - normal work of breathing on room air, no audible wheezing or stridor Skin - warm and dry without rash Cranial nerves Grossly normal Results 04/17/24 MRI brain: images reviewed. Complete opacification of right maxillary sinus with somewhat expansile appearance and mild surrounding ethmoid opacification. Remainder of paranasal sinuses are clear. Mild septal deviation. There are normal sized, midline cerebral ventricles. There is no evidence of mass lesion, edema, nor hemorrhage. There is no hydrocephalus, shift, or herniation. No epidural or subdural collections are present. There is no evidence of white matter disease or ischemic change. Diffusion weighted images are negative. The hypothalamus and pituitary regions are normal. The brain stem, cerebellum, and cranial - cervical junction are normal. The globes and orbital contents are grossly normal. IMPRESSION: 1. Negative unenhanced MR scan of the brain. 2. Markedly abnormal appearance of the right maxillary sinus the sinuses completely opacified with marked bulging into the right nasal cavity. This may represent changes from mucocele or underlying polypoid lesion. Otherwise mild scattered mucosal thickening right ethmoid air cells. Procedure Procedure: Nasal endoscopy Indications: right maxillary sinus opacification on imaging, evaluate for polyposis Details: Verbal informed consent was obtained and the patient elected to proceed. The endoscope wasadvanced through both sides of the nose. Examination of the nasal cavities was performed. Patient tolerated the procedure well. There were no complications. Findings: moderate inferior turbinate hypertrophy. Septum mildly deviated to the right. Decreased view of right middle meatus due to deviation but there is benign appearing nasal polyp that reaches the nasal floor. No purulence or significant swelling. Left middle meatus clear without infection, swelling, or polyposis. * Narcisa Stevens APRN - REHABILITATION MEDICINE PHYSICIAN - 04/20/2024 7:29 AM EDTAssociated Order(s): IP CONSULT TO NEUROLOGY General Neurology Consult Patient: Pablo Alarcon Date of : 1995 Acct: [id number] PCP: Tomás Dickey Date of Admission: 04/17/2024 Date of Service: Pt seen/examined on 04/20/24 Chief Complaint: Headache/History of neurofibromatosis History Of Present Illness: 28 y.o. female with past medical history significant for neurofibromatosis (type 1), and seizures presents with complaint/s of headache, and HTN. The patient was transferred to [facility] from [place] with a headache and severe range BP. She was started on magnesium and given labetalol 20mg with resolution of severe range. Patient has a history of cHTN but stopped her BP medication once becoming . 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 She reports that this has been stable for the last 8 years. Patient has ahistory of seizures and is on Keppra 1000mg BID. Last seizure was years ago. Patient also has a history of chronic migraines. Patient follows with outpatient neurology, Dr. Garg, in [facility]. Patient states that for the past couple of days she has had a headache that has been waxing and waning. Along with the headache, she has been having intermittent tingling in her bilateral hands, and around her mouth. Past Medical History: Past Medical History: Diagnosis Date Neurofibromatosis, type 1 (CMS/HCC) (HCC) Past Surgical History: Past Surgical History: Procedure Laterality Date TONSILLECTOMY (HISTORICAL) Home Medications: Prior to Admission medications Medication Sig Start Date End Date Taking? Authorizing Provider levETIRAcetam (Keppra) 100 MG/ML solution Yes Historical Provider, penicillin V (Veetid) 250 MG tablet Take 500 mg by mouth 2 times daily. FOR DENTAL PROCEDURE Yes Historical Provider, penicillin V (Veetid) 250 MG/5ML suspension Take 500 mg by mouth. Yes Historical Provider, ZV-Qyk-TV-[place]-3 (Vitafusion ) 0.18-32.5 MG chewable tablet Chew 2 capsules in the morning. GUMMIES-AFTER BREAKFAST OR LUNCH. Yes Historical Provider, Current Hospital Medications: Current Facility-Administered Medications: acetaminophen (Tylenol) tablet 650 mg, 650 mg, Oral, q4h PRN, Rosalia Schlieper, DO, 650 mg at 04/19/242057 aspirin EC tablet 81 mg, 81 mg, Oral, Daily, Annemarie Gemma, DO, 81 mg at 04/19/24 0931 calcium carbonate (Tums) chewable tablet 500 mg, 500 mg, Oral, q6h PRN, Annemarie Gemma, DO, 500 mg at 04/19/242057 calcium gluconate 10 % injection 1 g, 1 g, IntraVENous, PRN, Rosalia Schlieper, DO diphenhydrAMINE (BENADryl) tablet/capsule 25 mg, 25 mg, Oral, q6h PRN, Aye Campbell, DO,25 mg at 04/20/24228 docusate sodium (Colace) capsule 100 mg, 100 mg, Oral, BID PRN, Annemarie Gemma, DO, 100 mg at famotidine (Pepcid) tablet 20 mg, 20 mg, Oral, BID, Anenmarie Gemma, DO, 20 mg at 04/19/242057 guaiFENesin (Mucinex) 12 hr tablet 600 mg, 600 mg, Oral, BID PRN, Rosalia Schlieper, DO, 600 mg at 04/19/242099 influenza vaccine tiss-cult subunt (Flucelvax) STANDARD-DOSE injection 0.5 mL, 0.5 mL, IntraMUSCular, Once, Rosalia Schlieper, DO levETIRAcetam (Keppra) 100 MG/ML solution 1,000 mg, 1,000 mg, Oral, Nightly, Rosalia Schlieper, DO, 1,000 mg at 04/19/242058 magnesium sulfate 20 GM/500ML infusion, 2,000 mg/hr, IntraVENous, Continuous, Rosalia Schlieper, DO,Stopped at 04/18/24 1500 nicotine (Nicoderm, Step 2) 14 MG/24HR patch 1 patch, 1 patch, TransDERmal, Daily, 1 patch at 04/19/24 0935 FOLLOWED BY [START ON 05/30/2024] nicotine (Nicoderm, Step 3) 7 MG/24HR patch 1 patch, 1 patch, TransDERmal, Daily, Silvana Aurea, NIFEdipine XL (Procardia XL) 24 hr tablet 30 mg, 30 mg, Oral, BID, Rosalia Schlieper, DO Non-Formulary Medication, 1 Units, Oral, Daily, Annemarie Gemma, DO ondansetron ODT (Zofran-ODT) disintegrating tablet 4 mg, 4 mg, Oral, q8h PRN OR ondansetron (Zofran) injection 4 mg, 4 mg, IntraVENous, q6h PRN, Rosalia Schlieper, DO penicillin V (Veetid) tablet 500 mg, 500 mg, Oral, BID, Annemarie Gemma, DO, 500 mg at 04/19/242057 polyethylene glycol (PEG) 3350 (Miralax) packet 17 g, 17 g, Oral, Daily PRN, Annemarie Gemma, DO, 17 g at 04/18/242154 vitamin tablet, 1 tablet, Oral, Daily, Rosalia Schlieper, DO sodium chloride 0.9 % infusion, 5-250 mL/hr, IntraVENous, PRN, Rosalia Schlieper, DO sodium chloride 0.9% (NS) flush 10 mL, 10 mL, IntraVENous, 2 times per day, Rosalia Schlieper, DO, 10 mL at 04/18/242133 sodium chloride 0.9% (NS) flush 10 mL, 10 mL, IntraVENous, PRN, Rosalia Schlieper, DO Allergies: Patient has no known allergies. Social History: The patient currently lives at home TOBACCO: reports that she has been smoking. She has never used smokeless tobacco. ETOH: has no history on file for alcohol use. RECREATIONAL DRUG USE: Social History Substance and Sexual Activity Drug Use Not on file Family History: No family history on file. REVIEW OF SYSTEMS: CONSTITUTIONAL: negative for fevers and chills, nightsweats EYES: negative for irritation and redness, change in visual acuity HEENT: negative for earaches, ear drainage, and nasal congestion RESPIRATORY: negative for dry cough, wheezing and chest pain CARDIOVASCULAR: negative for palpitations, dyspnea, chest pain GASTROINTESTINAL: negative for nausea, vomiting and change in bowel habits GENITOURINARY: negative for change in frequency, dysuria and hematuria ENDOCRINE: negative for heat or cold intolerance of significant weight change MUSCULOSKELETAL: negative for myalgias, arthralgias and pain NEUROLOGICAL: positive for headache BEHAVIOR/PSYCH: negative for significant mood changes, anxiety, or agitation PHYSICAL EXAM: BP 121/72 Pulse 97 Temp 36.7 C (98 F) (Oral) Resp 16 Ht 1.549 m (5' 1) Wt 77.1 kg (170 lb) SpO2 97% BMI 32.12 kg/m General Appearance: NAD Cardiovascular: +S1, S2 Pulmonary: +BS Abdomen: Soft, nontender, nondistended Skin: Intact Extremities: No lower extremity edema Mental Status Exam: Level of Alertness: awake Orientation: person, place, time Memory: normal Fund of Knowledge: normal Attention/Concentration: normal Language: normal Funduscopic Exam: Attempted, discs not well visualized Cranial Nerves Cranial nerve II Visual acuity: normal Visual bautista: normal Cranial nerve III Pupils: equal, round, reactive to light Cranial nerves III, IV, Extraocular Movements: intact Cranial nerve V Facial sensation: intact Cranial nerve VII Facial strength: intact Cranial nerve VIII Hearing: intact Cranial nerve IX Palate: intact Cranial nerve XI Shoulder shrug: intact Cranial nerve XII Tongue movement: normal Motor: Drift: absent Motor: 5/5 throughout Tone: normal Abnormal Movements: absent Sensory: Temperature Right Upper Extremity: normal Left Upper Extremity: normal Right Lower Extremity: normal Left Lower Extremity: normal Vibration Right Upper Extremity: normal Left Upper Extremity: normal Right Lower Extremity: normal Left Lower Extremity: normal Touch Right Upper Extremity: normal Left Upper Extremity: normal Right Lower Extremity: normal Left Lower Extremity: normal Proprioception Right Upper Extremity: normal Left Upper Extremity: normal Right Lower Extremity: normal Left Lower Extremity: normal Coordination: Finger/Nose Right: normal Left: normal [id number]-Ymub Right: normal Left: normal Rapid Alternating Movements Right: normal Left: normal Gait: deferred secondary to fall risk Reflexes: Deep Tendon Reflexes: 2+ throughout Plantar response: Right: downgoing Left: downgoing Labs: Recent Labs 04/17/242000 WBC 21.8* HGB 11.3* HCT 35.2 PLT 317 Recent Labs 04/17/242000 NA 135 K 3.9 CL 104 CO2 20* BUN 7 CREATININE 0.52 CALCIUM 7.8* Recent Labs 04/17/242000 AST 40 ALT 34 BILITOT 0.3 ALKPHOS 190* Recent Labs 04/17/242000 ALKPHOS 190* ALT 34 AST 40 BILITOT 0.3 Radiology: (personally reviewed) MRI Brain wo contrast 04/19/24 1. Negative unenhanced MR scan of the brain. 2. Markedly abnormal appearance of the right maxillary sinus the sinuses completely opacified with marked bulging into the right nasal cavity. This may represent changes from mucocele or underlying polypoid lesion. Otherwise mild scattered mucosal thickening right ethmoid air cells. MRA Head wo contrast 04/19/24 1. Negative MR angiogram of the intracranial vessels. MRV Head wo contrast 04/19/24 Negative MR venogram of the intracranial veins. MRI Brain w/wo contrast 11/28/17 from [facility] without resolution of patchy foci of parenchymal signal abnormality and stable left optic glioma since 12/12/2009, as detailed. No pathologic intracranial enhancement. Neuro: Routine EEG 12/12/17 from chart review Current EEG (December 12, 2017) showed normal results. Cardiology: None ASSESSMENT/PLAN: Patient is a 28 yo female with PMH of neurofibromatosis (type 1), and seizures presents with complaint/s of headache, and HTN. Headache/Tingling -In the setting of HTN -MRI brain negative for acute abn, completely opacified right maxillary sinus - ENT consulted -MRA head and MRV head negative for acute findings -Will check TSH, B12, and A1c -Would continue controlling BP -Can give low dose IVSM, benadryl, and Reglan -Continue to monitor for preeclampsia History of seizures -Stable -Will check Keppra level -Continue home Keppra dose -Maintain seizure precautions History of neurofibromatosis (type1) -Stable -Follow up with outpatient neurology SIPEwSF vs cHTN -Started procardia -Per OB IUP -25w6d -Per OB 45 minutes of my independent time was spent preparing to see the patient, obtaining/reviewing separately obtained history, completing an appropriate medical examination of the patient, ordering medications/tests/procedures, documenting clinical information on the EMR, and/or coordinating care. An ad ditional 10 minutes was spent discussing assessment/plan with Dr. Benoit. Associated attestation - Linda Benoit MD - 04/20/2024 3:19 PM EDT I have seen, examined and evaluated the patient with the resident physician or nurse practitioner under my direct supervision. I have reviewed the resident physician's or nurse practitioner's note and agree with the assessment and plan of care as documented with the following addendum. HPI, social history, family history, and ROS have been reviewed and verified. Briefly, patient is a 28 yo female with past medical history of NF1, epilepsy, and cHTN presents with MADRID and HTN in setting pf (26 weeks). Patient was started on Mg and given labetalol per OB for concern of pre-E. Thus far, pre-E labs have been negative. MRI/A/V have been completed with no acute abn or new NF lesions. No LVO, aneurysm, or SVT on vascular imaging. MADRID noted to be diffuse, aching in nature. Pain is moderate and intermittent-patient feels it seems to fluctuate with her BP's. She feels when her BP is higher, MADRID will be wo rse. She also endorses tingling of b/l UE and around eyes. She does also have a history of seizures, but states it has been many years since last seizure. Sheis LEV 1000mg BID and tolerates without difficulty. She endorses compliance. She does not feel thatcurrent symptoms of MADRID or paresthesia are similar to seizures or seizure auras. Neurologic exam as below (Examined independently, any additions, pertinent findings, or revisions noted here) Assessment and Plan: 28 yo female with past medical history of NF1, epilepsy, and cHTN presents with MADRID and HTN in setting pf (26 weeks). MADRID -In the setting of cHTN vs pre-E -Imaging negative for acute intracranial abn or significant vascular pathology -Concerns include primary MADRID vs secondary to HTN or pre-E -Currently receiving tylenol with some benefit -Could try IVSM 125mg x 1 to see if improved symptom control (if ok with OB) -BP management and pre-E monitoring per OB Paresthesia -Possibly related to Mg vs BP? -B12, TSH, A1c pending-will defer to primary if abnormal Hx of seizures -No recent episodes -On LEV 1000mg BID -Will check level here so can be followed as outpt by patient's neurologist -Maintain seizure precautions No further neurology workup required at this time. Will sign off, please call if questions. I spent total time 25 minutes reviewing previous notes, test results, and face to face with the patient discussing the diagnosis and importance of compliance with the treatment plan as well as documenting on the day of the visit. documented in this [facility]10-16-[facility]24 Note* Care Coordination - Halima Kaiser RN - 04/22/2024 2:42 PM EDT Hospital day 6 at 26/ weeks. Cardiology consult. Voiced no needs or concerns. [id number] [facility]* Care Coordination - Halima Kaiser RN - 04/22/2024 2:42 PM EDT Hospital day 6 at 26/1 weeks. Cardiology consult. Voiced no needs or concerns. [id number] Consult note* Marty Wallis MD - 04/22/2024 1:33 PM EDT Associated Order(s): IP CONSULT TO CARDIOLOGY [facility] [place] [facility] Consult Note Reason for Consult/Chief Complaint: HTN Consulting MD: Dr. Durant History of Present Illness: Pablo Alarcon is a 28 y.o. female with neurofibromatosis, 26 week admitted for superimposed preeclampsia with significant HTN BP reaching 166/110 mmHg. She is known to have HTN on medications nifedipine 60 mg bid and in the hospital she is requiring labetalol, currently BP has improved to 142/98 mmHg. She reports feeling fine, no chest pain or SOB, no palpitations, dizziness or syncope. We obtained BP measurements in all 4 extremities which was consistent with symmetric measurements and appropriately higher BP in lower extremities/no drop in BP or BP deficit (L arm: 142/98, R arm: 137/97, L le/98, R le/98). Echo showed normal LV/RV, no valve disease, moderate pericardial effusion, on image review it appears small and echolucent at the RV free wall, no tamponade and trace effusion elsewhere. She has no pleuritic symptoms and asymptomatic. Renal Duplex was normal. Past Medical History: Past Medical History: Diagnosis Date Neurofibromatosis, type 1 (CMS/HCC) ([facility]LY [facility]) Past Surgical History: Past Surgical History: Procedure Laterality Date TONSILLECTOMY (HISTORICAL) Family History: No family history on file. Social History: Social History Tobacco Use Smoking status: Every Day Smokeless tobacco: Never Vaping Use Vaping status: Every Day Substances: Nicotine Medications: aspirin, 81 mg, Oral, Daily carbamide peroxide, 5 drop, Right Ear, BID famotidine, 20 mg, Oral, BID fluticasone, 1 spray, Each Nostril, BID influenza, 0.5 mL, IntraMUSCular, Once levETIRAcetam, 1,000 mg, Oral, Nightly nicotine, 1 patch, TransDERmal, Daily Followed by [START ON 05/30/2024] nicotine, 1 patch, TransDERmal, Daily NIFEdipine XL, 60 mg, Oral, Daily NIFEdipine XL, 60 mg, Oral, Nightly Non-Formulary Medication, 1 Units, Oral, Daily penicillin V, 500 mg, Oral, BID vitamin, 1 tablet, Oral, Daily sertraline, 50 mg, Oral, Daily sodium chloride 0.9%, 10 mL, IntraVENous, 2 times per day Allergies: Patient has no known allergies. Reviewed Review of Systems: All other systems were reviewed and are negative other than as noted in the HPI. Physical Examination: Vitals: Blood pressure 142/98, pulse 100, temperature 36.6 C (97.8 F), temperature source Oral, resp. rate 16, height 5' 1 (1.549 m), weight 170 lb (77.1 kg), SpO2 99%. No intake or output data in the 24 hours ending 04/22/24 1333 Wt Readings from Last 3 Encounters: 04/22/24 170 lb (77.1 kg) Neck: no JVD. No carotid bruits; No thyromegaly. Respiratory: Lungs are clear. No rales or wheezes. Respiratory effort is normal and symmetrical bilaterally; Good air movement bilaterally. Heart: RRR; Normal S1 and S2. no murmur; No rub; no gallop. Extremities/Skin: no LE edema; Skin warm to touch and well perfused Laboratory Tests: Results from last 7 days Lab Units 04/21/24 0603 04/17/242000 WBC AUTO 10*3/uL 24.2* 21.8* HEMOGLOBIN g/dL 13.0 11.3* HEMATOCRIT % 39.9 35.2 MCV fL 83.5 83.6 PLATELETS 10*3/uL 323 317 Lab Results Component Value Date GLUCOSE 96 04/21/2024 CALCIUM 9.3 04/21/2024 NA 132 (L) 04/21/2024 K 4.1 04/21/2024 CO2 20 (L) 04/21/2024 CL 105 04/21/2024 BUN 8 04/21/2024 CREATININE 0.49 (L) 04/21/2024 Lab Results Component Value Date HGBA1C 4.7 04/20/2024 Lab Results Component Value Date TSH 2.796 04/21/2024 Assessment/Plan HTN: initially uncontrolled, currently improved on labetalol and nifedipine, probably chronic HTN/exacerbated by gestational HTN, neurofibromatosis can be associated with HTN (workup is reasonable, BP measurements reassuring and no suggestive of aorta abnormalities such as mid aortic syndrome, renal arteries are normal, TSH was normal, renal function is normal, no proteinuria, metanephrines are pending). No heart failure. -continue antihypertensive per OB team and consider scheduled oral labetalol 200 mg bid or TID if needed for BP control Pericardial effusion: small, asymptomatic, no ECG changes/no pleuritic symptoms. -reassess as outpatient -consider repeat imaging for reassessment in 3 months We will sign off, please call us for questions Marty Wallis MD, [facility] DATE of SERVICE: 04/22/2024 [facility] [employer] Work Phone: [phone] 714-353510-16-2024 Nurse Note* Jasmine Durand RN - 04/22/2024 9:51 AM EDT 0951: Pt begins drinking 50g glucose drink 0954: Pt finishes 50g glucose drink. RN will return in 1 hr for blood draw. [facility] [id number] Consult note* Chelita Edward MD - 04/20/2024 12:43 PM EDTAssociated Order(s): IP CONSULT TO OTOLARYNGOLOGY [facility] [address], [address] [facility] [id number] Dept phone: [phone] Pablo Alarcon [id number] Assessment and Recommendations Chronic maxillary sinusitis Right nasal polyposis Nasal endoscopy today - moderate inferior turbinate hypertrophy. Septum mildly deviated to the right. Decreased view of right middle meatus due to deviation but there is benign appearing nasal polyp that reaches the nasal floor. No purulence or significant swelling. Left middle meatus clear withoutinfection, swelling, or polyposis. The right nasal polyps appear overall benign and the rightward septal deviation could be the anatomic etiology. She also endorses seasonal allergies. I recommend flonase nasal spray 1 spray to each nostril 2 times per day as long as there are no other contraindications for her or baby. 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 However, this is nonurgent and can wait until after delivery. She has seen ENT in [place] previously and would like to follow up there, I recommend in 3-6 months. Chelita Edward MD Subjective This is a 28 y.o. old female admitted for headache work up and found to have sinus abnormalities onMRI. ENT consulted for further evaluation of sinus imaging findings. Patient reports she's never had major issues with her sinuses before. She has some seasonal allergies but nothing major. She has used flonase nasal spray in the past but not recently. Her nose only started bothering her in 2nd trimester. She feels very congested at night but this gets better as shegets up and starts moving during the day. She denies nasal drainage, postnasal drip, midface pressure. Medications aspirin, 81 mg, Oral, Daily famotidine, 20 mg, Oral, BID influenza, 0.5 mL, IntraMUSCular, Once levETIRAcetam, 1,000 mg, Oral, Nightly nicotine, 1 patch, TransDERmal, Daily Followed by [START ON 05/30/2024] nicotine, 1 patch, TransDERmal, Daily NIFEdipine XL, 30 mg, Oral, BID Non-Formulary Medication, 1 Units, Oral, Daily penicillin V, 500 mg, Oral, BID vitamin, 1 tablet, Oral, Daily [START ON 04/21/2024] sertraline, 50 mg, Oral, Daily sodium chloride 0.9%, 10 mL, IntraVENous, 2 times per day Allergies No Known Allergies Problem List Patient Active Problem List Diagnosis labor in second trimester without delivery Objective Physical Exam Constitutional - alert, no acute distress, non-toxic appearing. Voice - strong and clear without breathiness. Face - normocephalic, atraumatic Eyes - normal appearing conjunctiva, no icterus Nose - normal external appearance, inferior turbinates with moderate hypertrophy, no drainage or crusting, septum mildly deviated Respiratory - normal work of breathing on room air, no audible wheezing or stridor Skin - warm and dry without rash Cranial nerves Grossly normal Results 04/17/24 MRI brain: images reviewed. Complete opacification of right maxillary sinus with somewhat expansile appearance and mild surrounding ethmoid opacification. Remainder of paranasal sinuses are clear. Mild septal deviation. There are normal sized, midline cerebral ventricles. There is no evidence of mass lesion, edema, nor hemorrhage. There is no hydrocephalus, shift, or herniation. No epidural or subdural collections are present. There is no evidence of white matter disease or ischemic change. Diffusion weighted images are negative. The hypothalamus and pituitary regions are normal. The brain stem, cerebellum, and cranial - cervical junction are normal. The globes and orbital contents are grossly normal. IMPRESSION: 1. Negative unenhanced MR scan of the brain. 2. Markedly abnormal appearance of the right maxillary sinus the sinuses completely opacified with marked bulging into the right nasal cavity. This may represent changes from mucocele or underlying polypoid lesion. Otherwise mild scattered mucosal thickening right ethmoid air cells. Procedure Procedure: Nasal endoscopy Indications: right maxillary sinus opacification on imaging, evaluate for polyposis Details: Verbal informed consent was obtained and the patient elected to proceed. The endoscope wasadvanced through both sides of the nose. Examination of the nasal cavities was performed. Patient tolerated the procedure well. There were no complications. Findings: moderate inferior turbinate hypertrophy. Septum mildly deviated to the right. Decreased view of right middle meatus due to deviation but there is benign appearing nasal polyp that reaches the nasal floor. No purulence or significant swelling. Left middle meatus clear without infection, swelling, or polyposis. [facility] Work Phone: [phone]) 621-988310-14-2024 Note* Care Coordination - Halima Kaiser RN - 04/20/2024 11:38 AM EDT Date: 04/20/2024 Name: Pablo Alarcon : 1995 [facility] Patient Information Primary Caregiver: Self Accompanied by/Relationship: S/O;Family Marital Status: Single Support System: SO/Family Taoist/Cultural Factors: none Activities of Daily Living Communication: See demographics Living Arrangements Current Residence: Private residence Lives With: S/O; Family Support System: S/O; Family Income Information Income Source: Not Employed Financial Resource Strain How hard is it for you to pay for the very basics like food, housing, medical care and heating? N/A Housing Stability In the last 12 months, was there a time when you did not have a steady place to sleep or slept in ashelter (including now)? Lives with FOB Transportation Needs Has the lack of Transportation kept you from medical appointments? No In the past 12 months, has the lack of transportation kept you from meetings, work, or from gettingthings needed for daily living? Social service referral Food Insecurity Within the past 12 months, have you worried that your food would run out before you got the money to buy more? No Stress Do you feel stress - tense, restless, nervous, or anxious, or unable to sleep at night because you mind is troubled all the time? Mood stable Referral To Financial Resources: N/A Community Resources: PNU folder given upon admission to PNU Unit Social Work:Resources CLP: N/A Medical Information 28 year old admitted for SIPEwSF. 2 Para 1. renal abnormality. Asthma. 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 Transport. Discharge Plan Home or Community Resources: PNU Admission folder given upon admission to unit Equipment: N/A Education Given: PNU admit folder and see Education Tab Additional Information: N/A Mental Health Services: N/A Developmental Delay: N/A Children's Services: N/A [id number] Note* Care Coordination - Halima Kaiser RN - 04/20/2024 11:38 AM EDT Date: 04/20/2024 Name: Pablo Alarcon : 1995 [facility] Patient Information Primary Caregiver: Self Accompanied by/Relationship: S/O;Family Marital Status: Single Support System: SO/Family Taoist/Cultural Factors: none Activities of Daily Living Communication: See demographics Living Arrangements Current Residence: Private residence Lives With: S/O; Family Support System: S/O; Family Income Information Income Source: Not Employed Financial Resource Strain How hard is it for you to pay for the very basics like food, housing, medical care and heating? N/A Housing Stability In the last 12 months, was there a time when you did not have a steady place to sleep or slept in ashelter (including now)? Lives with FOB Transportation Needs Has the lack of Transportation kept you from medical appointments? No In the past 12 months, has the lack of transportation kept you from meetings, work, or from gettingthings needed for daily living? Social service referral Food Insecurity Within the past 12 months, have you worried that your food would run out before you got the money to buy more? No Stress Do you feel stress - tense, restless, nervous, or anxious, or unable to sleep at night because you mind is troubled all the time? Mood stable Referral To Financial Resources: N/A Community Resources: PNU folder given upon admission to PNU Unit Social Work:Resources CLP: N/A Medical Information 28 year old admitted for SIPEwSF. 2 Para 1. renal abnormality. Asthma. 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 Transport. Discharge Plan Home or Community Resources: PNU Admission folder given upon admission to unit Equipment: N/A Education Given: PNU admit folder and see Education Tab Additional Information: N/A Mental Health Services: N/A Developmental Delay: N/A Children's Services: N/A [id number] Consult note* Narcisa Stevens, [facility] - REHABILITATION MEDICINE PHYSICIAN - 04/20/2024 7:29 AM EDTAssociated Order(s): IP CONSULT TO NEUROLOGY General Neurology Consult Patient: Pablo Alarcon Date of : 1995 Acct: [id number] PCP: Tomás Dickey Date of Admission: 04/17/2024 Date of Service: Pt seen/examined on 04/20/24 Chief Complaint: Headache/History of neurofibromatosis History Of Present Illness: 28 y.o. female with past medical history significant for neurofibromatosis (type 1), and seizures presents with complaint/s of headache, and HTN. The patient was transferred to [facility] from [place] with a headache and severe range BP. She was started on magnesium and given labetalol 20mg with resolution of severe range. Patient has a history of cHTN but stopped her BP medication once becoming . 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 She reports that this has been stable for the last 8 years. Patient has ahistory of seizures and is on Keppra 1000mg BID. Last seizure was years ago. Patient also has a history of chronic migraines. Patient follows with outpatient neurology, Dr. Garg, in [facility]. Patient states that for the past couple of days she has had a headache that has been waxing and waning. Along with the headache, she has been having intermittent tingling in her bilateral hands, and around her mouth. Past Medical History: Past Medical History: Diagnosis Date Neurofibromatosis, type 1 (CMS/HCC) ([facility]LY [facility]) Past Surgical History: Past Surgical History: Procedure Laterality Date TONSILLECTOMY (HISTORICAL) Home Medications: Prior to Admission medications Medication Sig Start Date End Date Taking? Authorizing Provider levETIRAcetam (Keppra) 100 MG/ML solution Yes Historical Provider, penicillin V (Veetid) 250 MG tablet Take 500 mg by mouth 2 times daily. FOR DENTAL PROCEDURE Yes Historical Provider, penicillin V (Veetid) 250 MG/5ML suspension Take 500 mg by mouth. Yes Historical Provider, DO-Cre-IS-[place]-3 (Vitafusion ) 0.18-32.5 MG chewable tablet Chew 2 capsules in the morning. GUMMIES-AFTER BREAKFAST OR LUNCH. Yes Historical Provider, Current Hospital Medications: Current Facility-Administered Medications: acetaminophen (Tylenol) tablet 650 mg, 650 mg, Oral, q4h PRN, Rosalia Schlieper, DO, 650 mg at 04/19/242057 aspirin EC tablet 81 mg, 81 mg, Oral, Daily, Annemarie Gemma, DO, 81 mg at 04/19/24 0931 calcium carbonate (Tums) chewable tablet 500 mg, 500 mg, Oral, q6h PRN, Annemarie Gemma, DO, 500 mg at 04/19/242057 calcium gluconate 10 % injection 1 g, 1 g, IntraVENous, PRN, Rosalia Vaibhavlieper, DO diphenhydrAMINE (BENADryl) tablet/capsule 25 mg, 25 mg, Oral, q6h PRN, Aye Campbell, DO,25 mg at 04/20/249 docusate sodium (Colace) capsule 100 mg, 100 mg, Oral, BID PRN, Annemarie Gemma, DO, 100 mg at 154 famotidine (Pepcid) tablet 20 mg, 20 mg, Oral, BID, Annemarie Gemma, DO, 20 mg at 04/19/242057 guaiFENesin (Mucinex) 12 hr tablet 600 mg, 600 mg, Oral, BID PRN, Rosalia Schlieper, DO, 600 mg at 04/19/242099 influenza vaccine tiss-cult subunt (Flucelvax) STANDARD-DOSE injection 0.5 mL, 0.5 mL, IntraMUSCular, Once, Rosalia Schlieper, DO levETIRAcetam (Keppra) 100 MG/ML solution 1,000 mg, 1,000 mg, Oral, Nightly, Rosalia Schlieper, DO, 1,000 mg at 04/19/242058 magnesium sulfate 20 GM/500ML infusion, 2,000 mg/hr, IntraVENous, Continuous, Rosalia Schlieper, DO,Stopped at 04/18/24 1500 nicotine (Nicoderm, Step 2) 14 MG/24HR patch 1 patch, 1 patch, TransDERmal, Daily, 1 patch at 04/19/24 0935 FOLLOWED BY [START ON 05/30/2024] nicotine (Nicoderm, Step 3) 7 MG/24HR patch 1 patch, 1 patch, TransDERmal, Daily, Silvana DO Aurea NIFEdipine XL (Procardia XL) 24 hr tablet 30 mg, 30 mg, Oral, BID, Rosalia Schlieper, DO Non-Formulary Medication, 1 Units, Oral, Daily, Annemarie Gemma, DO ondansetron ODT (Zofran-ODT) disintegrating tablet 4 mg, 4 mg, Oral, q8h PRN OR ondansetron (Zofran) injection 4 mg, 4 mg, IntraVENous, q6h PRN, Rosalia Schlieper, DO penicillin V (Veetid) tablet 500 mg, 500 mg, Oral, BID, Annemarie Gemma, DO, 500 mg at 04/19/242057 polyethylene glycol (PEG) 3350 (Miralax) packet 17 g, 17 g, Oral, Daily PRN, Annemarie Gemma, DO, 17 g at 04/18/242154 vitamin tablet, 1 tablet, Oral, Daily, Rosalia Schlieper, DO sodium chloride 0.9 % infusion, 5-250 mL/hr, IntraVENous, PRN, Rosalia Schlieper, DO sodium chloride 0.9% (NS) flush 10 mL, 10 mL, IntraVENous, 2 times per day, Rosalia Schlieper, DO, 10 mL at 04/18/242133 sodium chloride 0.9% (NS) flush 10 mL, 10 mL, IntraVENous, PRN, Rosalia Schlieper, DO Allergies: Patient has no known allergies. Social History: The patient currently lives at home TOBACCO: reports that she has been smoking. She has never used smokeless tobacco. ETOH: has no history on file for alcohol use. RECREATIONAL DRUG USE: Social History Substance and Sexual Activity Drug Use Not on file Family History: No family history on file. REVIEW OF SYSTEMS: CONSTITUTIONAL: negative for fevers and chills, nightsweats EYES: negative for irritation and redness, change in visual acuity HEENT: negative for earaches, ear drainage, and nasal congestion RESPIRATORY: negative for dry cough, wheezing and chest pain CARDIOVASCULAR: negative for palpitations, dyspnea, chest pain GASTROINTESTINAL: negative for nausea, vomiting and change in bowel habits GENITOURINARY: negative for change in frequency, dysuria and hematuria ENDOCRINE: negative for heat or cold intolerance of significant weight change MUSCULOSKELETAL: negative for myalgias, arthralgias and pain NEUROLOGICAL: positive for headache BEHAVIOR/PSYCH: negative for significant mood changes, anxiety, or agitation PHYSICAL EXAM: BP 121/72 Pulse 97 Temp 36.7 C (98 F) (Oral) Resp 16 Ht 1.549 m (5' 1) Wt 77.1 kg (170 lb) SpO2 97% BMI 32.12 kg/m General Appearance: NAD Cardiovascular: +S1, S2 Pulmonary: +BS Abdomen: Soft, nontender, nondistended Skin: Intact Extremities: No lower extremity edema Mental Status Exam: Level of Alertness: awake Orientation: person, place, time Memory: normal Fund of Knowledge: normal Attention/Concentration: normal Language: normal Funduscopic Exam: Attempted, discs not well visualized Cranial Nerves Cranial nerve II Visual acuity: normal Visual bautista: normal Cranial nerve III Pupils: equal, round, reactive to light Cranial nerves III, IV, Extraocular Movements: intact Cranial nerve V Facial sensation: intact Cranial nerve VII Facial strength: intact Cranial nerve VIII Hearing: intact Cranial nerve IX Palate: intact Cranial nerve XI Shoulder shrug: intact Cranial nerve XII Tongue movement: normal Motor: Drift: absent Motor: 5/5 throughout Tone: normal Abnormal Movements: absent Sensory: Temperature Right Upper Extremity: normal Left Upper Extremity: normal Right Lower Extremity: normal Left Lower Extremity: normal Vibration Right Upper Extremity: normal Left Upper Extremity: normal Right Lower Extremity: normal Left Lower Extremity: normal Touch Right Upper Extremity: normal Left Upper Extremity: normal Right Lower Extremity: normal Left Lower Extremity: normal Proprioception Right Upper Extremity: normal Left Upper Extremity: normal Right Lower Extremity: normal Left Lower Extremity: normal Coordination: Finger/Nose Right: normal Left: normal [id number] Right: normal Left: normal Rapid Alternating Movements Right: normal Left: normal Gait: deferred secondary to fall risk Reflexes: Deep Tendon Reflexes: 2+ throughout Plantar response: Right: downgoing Left: downgoing Labs: Recent Labs 04/17/242000 WBC 21.8* HGB 11.3* HCT 35.2 PLT 317 Recent Labs 04/17/242000 NA 135 K 3.9 CL 104 CO2 20* BUN 7 CREATININE 0.52 CALCIUM 7.8* Recent Labs 04/17/242000 AST 40 ALT 34 BILITOT 0.3 ALKPHOS 190* Recent Labs 04/17/242000 ALKPHOS 190* ALT 34 AST 40 BILITOT 0.3 Radiology: (personally reviewed) MRI Brain wo contrast 04/19/24 1. Negative unenhanced MR scan of the brain. 2. Markedly abnormal appearance of the right maxillary sinus the sinuses completely opacified with marked bulging into the right nasal cavity. This may represent changes from mucocele or underlying polypoid lesion. Otherwise mild scattered mucosal thickening right ethmoid air cells. MRA Head wo contrast 04/19/24 1. Negative MR angiogram of the intracranial vessels. MRV Head wo contrast 04/19/24 Negative MR venogram of the intracranial veins. MRI Brain w/wo contrast 11/28/17 from [facility] without resolution of patchy foci of parenchymal signal abnormality and stable left optic glioma since 12/12/2009, as detailed. No pathologic intracranial enhancement. Neuro: Routine EEG 12/12/17 from chart review Current EEG (December 12, 2017) showed normal results. Cardiology: None ASSESSMENT/PLAN: Patient is a 28 yo female with PMH of neurofibromatosis (type 1), and seizures presents with complaint/s of headache, and HTN. Headache/Tingling -In the setting of HTN -MRI brain negative for acute abn, completely opacified right maxillary sinus - ENT consulted -MRA head and MRV head negative for acute findings -Will check TSH, B12, and A1c -Would continue controlling BP -Can give low dose IVSM, benadryl, and Reglan -Continue to monitor for preeclampsia History of seizures -Stable -Will check Keppra level -Continue home Keppra dose -Maintain seizure precautions History of neurofibromatosis (type1) -Stable -Follow up with outpatient neurology SIPEwSF vs cHTN -Started procardia -Per OB IUP -25w6d -Per OB 45 minutes of my independent time was spent preparing to see the patient, obtaining/reviewing separately obtained history, completing an appropriate medical examination of the patient, ordering medications/tests/procedures, documenting clinical information on the EMR, and/or coordinating care. An ad ditional 10 minutes was spent discussing assessment/plan with Dr. Benoit. Associated attestation - Linda Benoit MD - 04/20/2024 3:19 PM EDT I have seen, examined and evaluated the patient with the resident physician or nurse practitioner under my direct supervision. I have reviewed the resident physician's or nurse practitioner's note and agree with the assessment and plan of care as documented with the following addendum. HPI, social history, family history, and ROS have been reviewed and verified. Briefly, patient is a 28 yo female with past medical history of NF1, epilepsy, and cHTN presents with MADRID and HTN in setting pf (26 weeks). Patient was started on Mg and given labetalol per OB for concern of pre-E. Thus far, pre-E labs have been negative. MRI/A/V have been completed with no acute abn or new NF lesions. No LVO, aneurysm, or SVT on vascular imaging. MADRID noted to be diffuse, aching in nature. Pain is moderate and intermittent-patient feels it seems to fluctuate with her BP's. She feels when her BP is higher, MADRID will be wo rse. She also endorses tingling of b/l UE and around eyes. She does also have a history of seizures, but states it has been many years since last seizure. Sheis LEV 1000mg BID and tolerates without difficulty. She endorses compliance. She does not feel thatcurrent symptoms of MADRID or paresthesia are similar to seizures or seizure auras. Neurologic exam as below (Examined independently, any additions, pertinent findings, or revisions noted here) Assessment and Plan: 28 yo female with past medical history of NF1, epilepsy, and cHTN presents with MADRID and HTN in setting pf (26 weeks). MADRID -In the setting of cHTN vs pre-E -Imaging negative for acute intracranial abn or significant vascular pathology -Concerns include primary MADRID vs secondary to HTN or pre-E -Currently receiving tylenol with some benefit -Could try IVSM 125mg x 1 to see if improved symptom control (if ok with OB) -BP management and pre-E monitoring per OB Paresthesia -Possibly related to Mg vs BP? -B12, TSH, A1c pending-will defer to primary if abnormal Hx of seizures -No recent episodes -On LEV 1000mg BID -Will check level here so can be followed as outpt by patient's neurologist -Maintain seizure precautions No further neurology workup required at this time. Will sign off, please call if questions. I spent total time 25 minutes reviewing previous notes, test results, and face to face with the patient discussing the diagnosis and importance of compliance with the treatment plan as well as documenting on the day of the visit. [facility] Work Phone: [phone] Nurse Note* Melani Montejo RN - 04/19/2024 7:49 PM EDT Patient off unit at this time for MRI [id number] Nurse Note* Kelle Nathan RN - 04/18/2024 7:37 AM EDT Patient's 24 hour urine found to be sitting on patient's counter and not on ice. Dr. Campbell aware and restarted 24 hour urine this morning at 0730. [id number] Plan of care note* Care Plan - Zoie Martinez RN - 04/17/2024 10:49 PM EDT The patient is Moderately Stable - Low risk of patient condition declining or worsening The patient's goals for the shift include eat, get some rest The clinical goals for the shift include BP WNL [id number] History and physical note* Rosalia Be DO - 04/17/2024 6:50 PM EDT Department of Maternal Medicine History and Physical CHIEF COMPLAINT: SIPEwSF HISTORY OF PRESENT ILLNESS: The patient is a 28 y.o. female at Unknown. OB History 2 Para 1 Term 1 AB Living 1 SAB IAB Ectopic Multiple Live Births Patient presents with a chief complaint as above and is being admitted for [facility] Patient presented to OSH and was noted to have severe range BP requiring acute treatment. She was transferred here for Magnesium sulfate, BP monitoring. Transport: Yes Prior Hospitalizations: No Estimated Due Date: Estimated Date of Delivery: None noted. CARE: Complications: See below PAST OB HISTORY: OB History 2 Para 1 Term 1 AB Living 1 SAB IAB Ectopic Multiple Live Births Detailed OB History G1 Term G2 Current Past Medical History: No past medical history on file. Past Surgical History: Past Surgical History: Procedure Laterality Date TONSILLECTOMY (HISTORICAL) Allergies: Patient has no known allergies. Social History: Social History Socioeconomic History Marital status: Single Spouse name: Not on file Number of children: Not on file Years of education: Not on file Highest education level: Not on file Occupational History Not on file Tobacco Use Smoking status: Every Day Smokeless tobacco: Never Substance and Sexual Activity Alcohol use: Not on file Drug use: Not on file Sexual activity: Yes Partners: Male Other Topics Concern Not on file Social History Narrative Not on file Social Determinants of Health Financial Resource Strain: Not on file Food Insecurity: Not on file Transportation Needs: Not on file Physical Activity: Not on file Stress: Not on file Social Connections: Not on file Intimate Partner Violence: Not on file Housing Stability: Not on file Family History: No family history on file. Medications Prior to Admission: No medications prior to admission. REVIEW OF SYSTEMS: Review of Systems Constitutional: Negative. HENT: Negative. Respiratory: Negative. Cardiovascular: Negative. Gastrointestinal: Negative. Genitourinary: Negative. Musculoskeletal: Negative. Neurological: Negative. Labs: CBC: No results found for: WBC, RBC, HGB, HCT, MCV, MCH, MCHC, RDW, PLT, MPV and CMP: No results found for: NA, K, CL, CO2, BUN, CREATININE, AGRATIO, LABGLOM, GLUCOSE, GLU, PROT, CALCIUM, BILITOT, ALKPHOS, AST, ALT PHYSICAL EXAM: There were no vitals filed for this visit. General appearance: awake, alert, cooperative, no apparent distress, and appears stated age Neurologic: Awake, alert, oriented to name, place and time. Lungs: No increased work of breathing, good air exchange Abdomen: Soft, non tender, gravid, consistent with her gestational age Sterile Speculum Exam: Membranes: Intact HSV Lesions: not applicable Cervix: defer Contraction frequency: none Fetus: Presentation: VTX by U/S genetics: CELL FREE DNA: low risk per PT ASSESSMENT AND PLAN: LABOR DELIVERY ??? SCD's ONLY (labor through ambulation) SCD's PLUS Prophylactic Anticoagulation until discharge SCD's PLUS Prophylactic Anticoagulation for 6 weeks SCD's PLUS Therapeutic Anticoagulation for 6 weeks Vaginal Delivery [] BMI >= 40 kg/m2 Delivery All patients Vaginal Delivery [] BMI >= 40 kg/m2 AND [] Antepartum hospitalization >= 72 hours within the past month Delivery 1 Major Risk Factor: [] BMI >= 35 kg/m2 [] Low Risk Thrombophilia [] PPH+RBCs, IR, or operation [] Infection+Antibiotics [] Antepartum hospitalization >= 72 hours within the past month [] PMH: Sickle Cell, SLE, Cardiac Dz, Active IBD, Active Cancer, Nephrotic Syndrome OR 2 Minor Risk Factors: [] Multiple gestation [] Age > 40 [] PPH >= 1,000cc [] (+)FMH of VTE [] Smoker [] Preeclampsia [] BMI >= 40 kg/m2 AND [] Low Risk Thrombophilia OR ANY OF THE FOLLOWING: [] High Risk Thrombophilia without prior VTE [] Low Risk Thrombophilia with (+)FMH of VTE [] Any single prior VTE ANY OF THE FOLLOWING: [] Already on LMWH/UFH [] Multiple prior VTE [] High Risk Thrombophilia with prior VTE Low Risk Thrombophilia: FVL (heterozygous), Prothrombin (heterozygous), Protein C, Protein S High Risk Thrombophilia: FVL (homozygous), Prothrombin (homozygous), FVL+Prothrombin (heterozygous), Antithrombin III, APLS VTE Prophylaxis: SCDs Admission: Admit to Antepartum (PNU) FHR: Category 1, heart monitoring CEFM Labs: GBS ordered, but not yet obtained GC/CT ordered, but not yet obtained Urine ordered, but not yet obtained FFN not obtained Type&Screen ordered, but not yet obtained Serum Labs CBC, CMP Consults: MFM and Neonatology Imaging: Indicated/ordered Growth ordered for 04/20 Diet: CLD Testing: TBD Timing and Route of Delivery: TBD Medications: Neuroprotection Not indicated, but ordered for seizure ppx Tocolysis Not indicated Antibiotics Not indicated Steroids: Betamethasone - indicated and ordered SIPEwSF vs cHTN Exacerbation - Presented to OSH and found to have persistently severe range Bps, acutely treated with 20 mg IV Labetalol and started on Magensium sulfate for seizure ppx - Known cHTN, previously on medication prior to , reports her family medicine PCP discontinued her medications once she found out she was - PreE labs obtained on admission, C pending - Patient asymptomatic on presentation - Magnesium running for seizure ppx - Bp on admission low mild range Neurofibromatosis Type 1 Hx of Seizures - Follows with Neurologist, Dr. 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 No associated enhancement or pathologic parenchymal or leptomeningeal enhancement elsewhere in brain, right optic nerve, optic chiasm and optic tracts appear within normal limits - Defer Neuro consult at this time Renal Abnormality - Pt reports dilated kidneys of previous scan - Records unavailable at time of admission - Growth ordered for 04/20 Dental Concern - Reports seen last week by dentist and started on PCN, unsure if for abscess, but notes significant dental history - PCN 500 mg daily ordered - Will consider dental consult while admitted Asthma - No hospitalizations or intubations IUP @ Unknown - Dating by /\ US - VTX on 04/17 - Monitoring: CEFM - Diet: CLD - BMZ x1 on 04/[address] Durant, who agrees with plan. Rosalia Be, 04/17/2024, 7:51 PM Cc: Bere Durant MD Associated attestation - Bere Durant MD - 04/18/2024 12:09 PM EDT Attending Supervising Physician's Attestation Statement This patient was admitted overnight while I was supervisor home restoration service. I discussed the assessment and management with the resident physician. I reviewed and agree with the findings and plan as documented in the note. Bere Durant MD [id number] Note Attestation signed by Bere Durant MD at 04/18/2024 12:09 PM Attending Supervising Physician's Attestation Statement This patient was admitted overnight while I was supervisor home restoration service. I discussed the assessment and management with the resident physician. I reviewed and agree with the findings and plan as documented in the note. Bere Durant MD Department of Maternal Medicine History and Physical CHIEF COMPLAINT: SIPEwSF HISTORY OF PRESENT ILLNESS: The patient is a 28 y.o. female at Unknown. OB History 2 Para 1 Term 1 AB Living 1 SAB IAB Ectopic Multiple Live Births Patient presents with a chief complaint as above and is being admitted for [facility] Patient presented to OSH and was noted to have severe range BP requiring acute treatment. She was transferred here for Magnesium sulfate, BP monitoring. Transport: Yes Prior Hospitalizations: No Estimated Due Date: Estimated Date of Delivery: None noted. CARE: Complications: See below PAST OB HISTORY: OB History 2 Para 1 Term 1 AB Living 1 SAB IAB Ectopic Multiple Live Births Detailed OB History G1 Term G2 Current Past Medical History: No past medical history on file. Past Surgical History: Past Surgical History: Procedure Laterality Date TONSILLECTOMY (HISTORICAL) Allergies: Patient has no known allergies. Social History: Social History Socioeconomic History Marital status: Single Spouse name: Not on file Number of children: Not on file Years of education: Not on file Highest education level: Not on file Occupational History Not on file Tobacco Use Smoking status: Every Day Smokeless tobacco: Never Substance and Sexual Activity Alcohol use: Not on file Drug use: Not on file Sexual activity: Yes Partners: Male Other Topics Concern Not on file Social History Narrative Not on file Social Determinants of Health Financial Resource Strain: Not on file Food Insecurity: Not on file Transportation Needs: Not on file Physical Activity: Not on file Stress: Not on file Social Connections: Not on file Intimate Partner Violence: Not on file Housing Stability: Not on file Family History: No family history on file. Medications Prior to Admission: No medications prior to admission. REVIEW OF SYSTEMS: Review of Systems Constitutional: Negative. HENT: Negative. Respiratory: Negative. Cardiovascular: Negative. Gastrointestinal: Negative. Genitourinary: Negative. Musculoskeletal: Negative. Neurological: Negative. Labs: CBC: No results found for: WBC, RBC, HGB, HCT, MCV, MCH, MCHC, RDW, PLT, MPV and CMP: No results found for: NA, K, CL, CO2, BUN, CREATININE, AGRATIO, LABGLOM, GLUCOSE, GLU, PROT, CALCIUM, BILITOT, ALKPHOS, AST, ALT PHYSICAL EXAM: There were no vitals filed for this visit. General appearance: awake, alert, cooperative, no apparent distress, and appears stated age Neurologic: Awake, alert, oriented to name, place and time. Lungs: No increased work of breathing, good air exchange Abdomen: Soft, non tender, gravid, consistent with her gestational age Sterile Speculum Exam: Membranes: Intact HSV Lesions: not applicable Cervix: defer Contraction frequency: none Fetus: Presentation: VTX by U/S genetics: CELL FREE DNA: low risk per PT ASSESSMENT AND PLAN: LABOR DELIVERY ??? SCD's ONLY (labor through ambulation) SCD's PLUS Prophylactic Anticoagulation until discharge SCD's PLUS Prophylactic Anticoagulation for 6 weeks SCD's PLUS Therapeutic Anticoagulation for 6 weeks Vaginal Delivery [] BMI >= 40 kg/m2 Delivery All patients Vaginal Delivery [] BMI >= 40 kg/m2 AND [] Antepartum hospitalization >= 72 hours within the past month Delivery 1 Major Risk Factor: [] BMI >= 35 kg/m2 [] Low Risk Thrombophilia [] PPH+RBCs, IR, or operation [] Infection+Antibiotics [] Antepartum hospitalization >= 72 hours within the past month [] PMH: Sickle Cell, SLE, Cardiac Dz, Active IBD, Active Cancer, Nephrotic Syndrome OR 2 Minor Risk Factors: [] Multiple gestation [] Age > 40 [] PPH >= 1,000cc [] (+)FMH of VTE [] Smoker [] Preeclampsia [] BMI >= 40 kg/m2 AND [] Low Risk Thrombophilia OR ANY OF THE FOLLOWING: [] High Risk Thrombophilia without prior VTE [] Low Risk Thrombophilia with (+)FMH of VTE [] Any single prior VTE ANY OF THE FOLLOWING: [] Already on LMWH/UFH [] Multiple prior VTE [] High Risk Thrombophilia with prior VTE Low Risk Thrombophilia: FVL (heter (more content not included)...[facility]10-11-2024 History and physical note* Rosalia Be, DO - 04/17/2024 6:50 PM EDT Department of Maternal Medicine History and Physical CHIEF COMPLAINT: SIPEwSF HISTORY OF PRESENT ILLNESS: The patient is a 28 y.o. female at Unknown. OB History 2 Para 1 Term 1 AB Living 1 SAB IAB Ectopic Multiple Live Births Patient presents with a chief complaint as above and is being admitted for SIPEwSF Patient presented to OSH and was noted to have severe range BP requiring acute treatment. She was transferred here for Magnesium sulfate, BP monitoring. Transport: Yes Prior Hospitalizations: No Estimated Due Date: Estimated Date of Delivery: None noted. CARE: Complications: See below PAST OB HISTORY: OB History 2 Para 1 Term 1 AB Living 1 SAB IAB Ectopic Multiple Live Births Detailed OB History G1 Term G2 Current Past Medical History: No past medical history on file. Past Surgical History: Past Surgical History: Procedure Laterality Date TONSILLECTOMY (HISTORICAL) Allergies: Patient has no known allergies. Social History: Social History Socioeconomic History Marital status: Single Spouse name: Not on file Number of children: Not on file Years of education: Not on file Highest education level: Not on file Occupational History Not on file Tobacco Use Smoking status: Every Day Smokeless tobacco: Never Substance and Sexual Activity Alcohol use: Not on file Drug use: Not on file Sexual activity: Yes Partners: Male Other Topics Concern Not on file Social History Narrative Not on file Social Determinants of Health Financial Resource Strain: Not on file Food Insecurity: Not on file Transportation Needs: Not on file Physical Activity: Not on file Stress: Not on file Social Connections: Not on file Intimate Partner Violence: Not on file Housing Stability: Not on file Family History: No family history on file. Medications Prior to Admission: No medications prior to admission. REVIEW OF SYSTEMS: Review of Systems Constitutional: Negative. HENT: Negative. Respiratory: Negative. Cardiovascular: Negative. Gastrointestinal: Negative. Genitourinary: Negative. Musculoskeletal: Negative. Neurological: Negative. Labs: CBC: No results found for: WBC, RBC, HGB, HCT, MCV, MCH, MCHC, RDW, PLT, MPV and CMP: No results found for: NA, K, CL, CO2, BUN, CREATININE, AGRATIO, LABGLOM, GLUCOSE, GLU, PROT, CALCIUM, BILITOT, ALKPHOS, AST, ALT PHYSICAL EXAM: There were no vitals filed for this visit. General appearance: awake, alert, cooperative, no apparent distress, and appears stated age Neurologic: Awake, alert, oriented to name, place and time. Lungs: No increased work of breathing, good air exchange Abdomen: Soft, non tender, gravid, consistent with her gestational age Sterile Speculum Exam: Membranes: Intact HSV Lesions: not applicable Cervix: defer Contraction frequency: none Fetus: Presentation: VTX by U/S genetics: CELL FREE DNA: low risk per PT ASSESSMENT AND PLAN: LABOR DELIVERY ??? SCD's ONLY (labor through ambulation) SCD's PLUS Prophylactic Anticoagulation until discharge SCD's PLUS Prophylactic Anticoagulation for 6 weeks SCD's PLUS Therapeutic Anticoagulation for 6 weeks Vaginal Delivery [] BMI >= 40 kg/m2 Delivery All patients Vaginal Delivery [] BMI >= 40 kg/m2 AND [] Antepartum hospitalization >= 72 hours within the past month Delivery 1 Major Risk Factor: [] BMI >= 35 kg/m2 [] Low Risk Thrombophilia [] PPH+RBCs, IR, or operation [] Infection+Antibiotics [] Antepartum hospitalization >= 72 hours within the past month [] PMH: Sickle Cell, SLE, Cardiac Dz, Active IBD, Active Cancer, Nephrotic Syndrome OR 2 Minor Risk Factors: [] Multiple gestation [] Age > 40 [] PPH >= 1,000cc [] (+)FMH of VTE [] Smoker [] Preeclampsia [] BMI >= 40 kg/m2 AND [] Low Risk Thrombophilia OR ANY OF THE FOLLOWING: [] High Risk Thrombophilia without prior VTE [] Low Risk Thrombophilia with (+)FMH of VTE [] Any single prior VTE ANY OF THE FOLLOWING: [] Already on LMWH/UFH [] Multiple prior VTE [] High Risk Thrombophilia with prior VTE Low Risk Thrombophilia: FVL (heterozygous), Prothrombin (heterozygous), Protein C, Protein S High Risk Thrombophilia: FVL (homozygous), Prothrombin (homozygous), FVL+Prothrombin (heterozygous), Antithrombin III, APLS VTE Prophylaxis: SCDs Admission: Admit to Antepartum (PNU) FHR: Category 1, heart monitoring CEFM Labs: GBS ordered, but not yet obtained GC/CT ordered, but not yet obtained Urine ordered, but not yet obtained FFN not obtained Type&Screen ordered, but not yet obtained Serum Labs CBC, CMP Consults: MFM and Neonatology Imaging: Indicated/ordered Growth ordered for 04/20 Diet: CLD Testing: TBD Timing and Route of Delivery: TBD Medications: Neuroprotection Not indicated, but ordered for seizure ppx Tocolysis Not indicated Antibiotics Not indicated Steroids: Betamethasone - indicated and ordered SIPEwSF vs cHTN Exacerbation - Presented to OSH and found to have persistently severe range Bps, acutely treated with 20 mg IV Labetalol and started on Magensium sulfate for seizure ppx - Known cHTN, previously on medication prior to , reports her family medicine PCP discontinued her medications once she found out she was - PreE labs obtained on admission, UPC pending - Patient asymptomatic on presentation - Magnesium running for seizure ppx - Bp on admission low mild range Neurofibromatosis Type 1 Hx of Seizures - Follows with Neurologist, Dr. 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 No associated enhancement or pathologic parenchymal or leptomeningeal enhancement elsewhere in brain, right optic nerve, optic chiasm and optic tracts appear within normal limits - Defer Neuro consult at this time Renal Abnormality - Pt reports dilated kidneys of previous scan - Records unavailable at time of admission - Growth ordered for 04/20 Dental Concern - Reports seen last week by dentist and started on PCN, unsure if for abscess, but notes significant dental history - PCN 500 mg daily ordered - Will consider dental consult while admitted Asthma - No hospitalizations or intubations IUP @ Unknown - Dating by \ US - VTX on 04/17 - Monitoring: CEFM - Diet: CLD - BMZ x1 on 04/[address] Durant, who agrees with plan. Rosalia Be DO 04/17/2024, 7:51 PM Cc: Bere Durant MD Associated attestation - Bere Durant MD - 04/18/2024 12:09 PM EDT Attending Supervising Physician's Attestation Statement This patient was admitted overnight while I was supervisor home restoration service. I discussed the assessment and management with the resident physician. I reviewed and agree with the findings and plan as documented in the note. Bere Durant MD documented in this [facility]06-15-2024 Note Discharge Instructions Thank you for allowing [facility] to assist you with your healthcare needs. The following is importantdischarge information regarding your hospital visit. Diagnosis from Today's Visit Spontaneous What to Do Next Instructions from Your Care Team No qualifying data available. Post Acute Orders No qualifying data available. You Need to Schedule the Following Appointments Follow Up with DANIEL SPANGLER DO When:Within 2-4 days Where:[address] [place] [address]- [phone] Follow Up with TOMÁS DICKEY MD When:Within 2-4 days Where:[address] [facility] [place] [address]- Allergies NKA Medications Please ask your primary doctor or pharmacist before taking any other medication not listed, including over the counter drugs, herbal medications, vitamins and or supplements as they may interact withyour home medications. What How Much When Why Instructions Last Dose Unchanged albuterol (albuterol 2.5 mg/ 3 mL (0.083%) inhalation solution) 3 Milliliter by inhalation Every 6 hours Asthmatic bronchitis H/O neurofibromatosis Unchanged albuterol (ProAir HFA MDI (90 mcg/ inh) inhalation aerosol) 2 puff(s) by inhalation Every 6 hours Bronchospasm Unchanged fluticasone nasal (Flonase 50 mcg/ inh nasal spray) 2 spray(s) each nostril Once a day Duration: 30 Days Unchanged levETIRAcetam (levETIRAcetam 500 mg oral tablet) 1 tab(s) by mouth Two (2) times a day Duration: 30 Days Unchanged multivitamin, ( Multivitamins with Vitamin B Complex, Vitamin C, Minerals and L-Methylfolate oral capsule) 1 cap by mouth Every day Please take this list to your next doctor s visit. Bring all medications you take, including over the counter medications, herbals and other supplements with you to your doctor s visit. Patients and families are reminded to discard old lists and to update any records with all medication providers or retail pharmacies. Education Materials Missed Miscarriage Today's exams show your has ended suddenly. This can be emotionally difficult. There is little that can be done to change the way you feel. But understand that miscarriages are common. About 1 or 2 out of every [address] Some even end before you know you are . This happens for a number of reasons, and usually the cause is never known. It s important you know that it is not your fault. It didn t happen because you did anything wrong. Having sex or exercising does not cause a miscarriage. These activities are usually safe unless youhave pain or bleeding or your doctor tells you to stop. Even minor falls won t cause a miscarriage.Miscarriages happen because things were not developing as they were supposed to. You still have some tissue from the in your uterus. Because of this, you may have some bleeding. It might be light spotting or as heavy as a period. You may also have some cramping. Usuallyall of the tissue will pass out by itself and nothing else needs to be done. But sometimes tissue stays in the uterus. In that case, it must be removed to stop bleeding and prevent infection. After you have recovered, you should still be able to get again. But before trying, talk with your healthcare provider. Home care Follow these tips to take of yourself at home: You can go back to your normal activities if you don t have heavy bleeding or pain. You may have some cramping and bleeding, but it shouldn t be severe. Until the bleeding stops completely and to prevent infection: Don t have sex until your healthcare provider says it s OK Use sanitary napkins instead of tampons. Don t douche. Having a miscarriage can be very difficult emotionally. It is natural to feel sadness or grief. It may help to talk about your feelings with family and friends, or with a counselor. Follow-up care Follow up with your healthcare provider, or as advised. You may pass tissue. If you see anything, it may appear as a 1-inch or larger piece of melissa or pink flesh. If tissue has not passedfrom your vagina within the next 5 days, you need to see your healthcare provider for another exam.To prevent infection in the uterus, your provider might need to take out the tissue by surgery. Or you may be given medicine to take at home to help your body expel the rest of the tissue. If you had an ultrasound, a radiologist will review it. You will be told of any new findings that may affect your care. Call 911 Call 911 if you have: Severe pain and very heavy bleeding Severe lightheadedness, passing out, or fainting Rapid heart rate Difficulty breathing Confusion or difficulty waking up When to seek medical advice Call your healthcare provider right away if any of these occur: Heavy bleeding. This means soaking 1 new pad an hour over 3 hours. Foul-smelling vaginal discharge Fever of 100.4 F (38 C) or higher, or as directed by your healthcare provider Pain in your lower belly (abdomen) that gets worse Weakness or dizziness Passage of anything that resembles tissue. This would be pink or grayish membrane or solid material. Save the tissue in a clean container and bring it to your provider. 9634-3464 [employer]. [address] [place] [address]. All rights reserved. This information is not intended as a substitute for professional medical care. Always follow yourhealthcare professional's instructions. Additional Information VACCINATE! IT SAVES LIVES! Members of the community who have not yet received the COVID-19 vaccine and would like to receive it can visit one of [facility] vaccine clinics. There are many vaccine clinic locations within the [facility]. For locations and available times, please visit [email or web address]/. It is important to note that some COVID mobile vaccine clinics are held outdoors and may be canceled in rainy or stormy conditions. To learn more about pediatric vaccinations (ages 5-11), we invite you to visit the [facility] webpage. https://www.[facility].org/pages/0034-Kwdly-Hhdjpqrdizv-Spgphxpxti-Tzaxz-Ihy stions.htmlTo learn more about the COVID-19 vaccine, we invite you to visit the CDC website for a list of frequently asked questions. https://www.cdc.gov/coronavirus/2019-ncov/vaccines/faq.html [facility] Patient Portal Access Instructions: Stay connected with your healthcare team and access your personal medical information anytime with the [facility] Patient Portal. If you would like a full copy of your medical records please contact the [facility] Medical Records Department Saturday through Saturday between 8a.m. and 4:30p.m. Please follow the directions below to access the portal: 1.Access the email account you provided upon registration to the [facility].2.Look for an invitation email from [facility].3.Open the email and access the invitation link: Accept Invitation to [facility]4.Fill in the required bautista to create your account. Sign into [email or web address] with your username and password that you created in the above steps to stay up to date. You can then view a summary of results, a summary of your visits, and the ability to download your summaries to your computer or send the information securely to a physician. Remember that your healthcare information is confidential, so carefully consider who you will allow to register on the [facility] Patient Portal for access to your information. You can also access the [facility] Patient Portal on the [employer] a[employer]ley. Simply click on Health Records under [employer] and then click on the Secondbrain logo. HOW TO SAFELY DISPOSE OF PRESCRIPTION MEDICATIONS Please use one of the following methods to safely dispose of your unused medications. 1.Use a drug disposal kit: the drug disposal pouch allows you to safely discard your old and unuseddrugs. Ask your nurse to give you one when you are discharged.2.Visit a local take-back location: Many local pharmacies and police departments have programs that collect old and unwanted prescriptiondrugs. Call your local pharmacy or go to http://[employer]Domain Media/6G5Jn5p to find one close to you.3.Make use of household items: Use cat litter or old coffee grounds to dispose medications if other options arenot available. Mix your drugs with these household products, seal them in an airtight container andthrow it into the garbage. Call [facility]: [phone] to be sure your drugs can be disposed of in this way. Some medicines may require a different approach.4.Never flush your medications down the toilet. IF YOU HAVE BEEN PRESCRIBED AN OPIOIDS FOR PAIN If you have been prescribed an opioid (such as hydrocodone, oxycodone or morphine), it is critical to understand the possible side effects and risks of opioid pain medications. Even when taken as directed, opioids can have several side effects including: Tolerance, meaning you might need to take more of a medication for the same pain relief. Nausea, vomiting and/or constipation. Sleepiness, dizziness, dry mouth, confusion, depression or itching. Physical dependence, meaning you have withdrawal symptoms when a medication is stopped ? this can develop within a few days. KNOW YOUR RESPONSIBILITIES It is important to know exactly how much and how often to take the opioid pain medications you are prescribed. Never take opioids in higher amounts or more often than prescribed. Do not combine opioids with alcohol or other drugs that cause drowsiness, such as benzodiazepines, also known as benzos,including diazepam and alprazolam, muscle relaxants or sleep aids. Never sell or share prescriptionopioids. This is illegal. Store opioids in a secure place and out of reach of others (including children, family, friends and visitors). The last page(s) of this document has been signed and retained as a CHART COPY Signatures Patient Education Materials Missed Miscarriage Medication Leaflets My discharge plan and instructions have been reviewed and explained to me and IDORIAN CHRISTINAA understand my current condition and have read and understand these discharge instructions. I havereceived a written copy of the plan/instructions. If I have questions, I am aware that I should contact my doctor. Patient/Division Head Signature: Date/Time: Relationship to Patient: Witness Name/Signature: Date/Time: [facility] Bartaundrea [id number] Note Discharge Instructions Thank you for allowing [facility] to assist you with your healthcare needs. The following is importantdischarge information regarding your hospital visit. Diagnosis from Today's Visit Spontaneous What to Do Next Instructions from Your Care Team No qualifying data available. Post Acute Orders No qualifying data available. You Need to Schedule the Following Appointments Follow Up with DANIEL SPANGLER DO When:Within 2-4 days Where:[address] [place] [address] [phone] Follow Up with TOMÁS DICKEY MD When:Within 2-4 days Where:[address] [facility] [place] [address]- Allergies NKA Medications Please ask your primary doctor or pharmacist before taking any other medication not listed, including over the counter drugs, herbal medications, vitamins and or supplements as they may interact withyour home medications. What How Much When Why Instructions Last Dose Unchanged albuterol (albuterol 2.5 mg/ 3 mL (0.083%) inhalation solution) 3 Milliliter by inhalation Every 6 hours Asthmatic bronchitis H/O neurofibromatosis Unchanged albuterol (ProAir HFA MDI (90 mcg/ inh) inhalation aerosol) 2 puff(s) by inhalation Every 6 hours Bronchospasm Unchanged fluticasone nasal (Flonase 50 mcg/ inh nasal spray) 2 spray(s) each nostril Once a day Duration: 30 Days Unchanged levETIRAcetam (levETIRAcetam 500 mg oral tablet) 1 tab(s) by mouth Two (2) times a day Duration: 30 Days Unchanged multivitamin, ( Multivitamins with Vitamin B Complex, Vitamin C, Minerals and L-Methylfolate oral capsule) 1 cap by mouth Every day Please take this list to your next doctor s visit. Bring all medications you take, including over the counter medications, herbals and other supplements with you to your doctor s visit. Patients and families are reminded to discard old lists and to update any records with all medication providers or retail pharmacies. Education Materials Missed Miscarriage Today's exams show your has ended suddenly. This can be emotionally difficult. There is little that can be done to change the way you feel. But understand that miscarriages are common. About 1 or 2 out of every [address] Some even end before you know you are . This happens for a number of reasons, and usually the cause is never known. It s important you know that it is not your fault. It didn t happen because you did anything wrong. Having sex or exercising does not cause a miscarriage. These activities are usually safe unless youhave pain or bleeding or your doctor tells you to stop. Even minor falls won t cause a miscarriage.Miscarriages happen because things were not developing as they were supposed to. You still have some tissue from the in your uterus. Because of this, you may have some bleeding. It might be light spotting or as heavy as a period. You may also have some cramping. Usuallyall of the tissue will pass out by itself and nothing else needs to be done. But sometimes tissue stays in the uterus. In that case, it must be removed to stop bleeding and prevent infection. After you have recovered, you should still be able to get again. But before trying, talk with your healthcare provider. Home care Follow these tips to take of yourself at home: You can go back to your normal activities if you don t have heavy bleeding or pain. You may have some cramping and bleeding, but it shouldn t be severe. Until the bleeding stops completely and to prevent infection: Don t have sex until your healthcare provider says it s OK Use sanitary napkins instead of tampons. Don t douche. Having a miscarriage can be very difficult emotionally. It is natural to feel sadness or grief. It may help to talk about your feelings with family and friends, or with a counselor. Follow-up care Follow up with your healthcare provider, or as advised. You may pass tissue. If you see anything, it may appear as a 1-inch or larger piece of melissa or pink flesh. If tissue has not passedfrom your vagina within the next 5 days, you need to see your healthcare provider for another exam.To prevent infection in the uterus, your provider might need to take out the tissue by surgery. Or you may be given medicine to take at home to help your body expel the rest of the tissue. If you had an ultrasound, a radiologist will review it. You will be told of any new findings that may affect your care. Call 911 Call 911 if you have: Severe pain and very heavy bleeding Severe lightheadedness, passing out, or fainting Rapid heart rate Difficulty breathing Confusion or difficulty waking up When to seek medical advice Call your healthcare provider right away if any of these occur: Heavy bleeding. This means soaking 1 new pad an hour over 3 hours. Foul-smelling vaginal discharge Fever of 100.4 F (38 C) or higher, or as directed by your healthcare provider Pain in your lower belly (abdomen) that gets worse Weakness or dizziness Passage of anything that resembles tissue. This would be pink or grayish membrane or solid material. Save the tissue in a clean container and bring it to your provider. 4631-3816 [employer]. [address] [place] [address]. All rights reserved. This information is not intended as a substitute for professional medical care. Always follow yourhealthcare professional's instructions. Additional Information VACCINATE! IT SAVES LIVES! Members of the community who have not yet received the COVID-19 vaccine and would like to receive it can visit one of [facility] vaccine clinics. There are many vaccine clinic locations within the [facility]. For locations and available times, please visit www.[email or web address].[email or web address]/. It is important to note that some COVID mobile vaccine clinics are held outdoors and may be canceled in rainy or stormy conditions. To learn more about pediatric vaccinations (ages 5-11), we invite you to visit the [facility] webpage. https://www.[facility].org/pages/7686-Vtekf-Gpjalcuefpw-Bgupgnzxqg-Zxtqg-[email or web address] stions.htmlTo learn more about the COVID-19 vaccine, we invite you to visit the CDC website for a list of frequently asked questions. https://www.cdc.gov/coronavirus/2019-ncov/vaccines/faq.html [facility] Patient Portal Access Instructions: Stay connected with your healthcare team and access your personal medical information anytime with the [facility] Patient Portal. If you would like a full copy of your medical records please contact the [facility] Records Department Saturday through Saturday between 8a.m. and 4:30p.m. Please follow the directions below to access the portal: 1.Access the email account you provided upon registration to the hospital.2.Look for an invitation email from [facility].3.Open the email and access the invitation link: Accept Invitation to [facility]4.Fill in the required bautista to create your account. Sign into [email or web address] with your username and password that you created in the above steps to stay up to date. You can then view a summary of results, a summary of your visits, and the ability to download your summaries to your computer or send the information securely to a physician. Remember that your healthcare information is confidential, so carefully consider who you will allow to register on the [facility] Patient Portal for access to your information. You can also access the [facility] Patient Portal on the [employer]. Simply click on Health Records under girnarsoft and then click on the [facility] logo. HOW TO SAFELY DISPOSE OF PRESCRIPTION MEDICATIONS Please use one of the following methods to safely dispose of your unused medications. 1.Use a drug disposal kit: the drug disposal pouch allows you to safely discard your old and unuseddrugs. Ask your nurse to give you one when you are discharged.2.Visit a local take-back location: Many local pharmacies and police departments have programs that collect old and unwanted prescriptiondrugs. Call your local pharmacy or go to http://[employer].Domain Media/6U2Uc7b to find one close to you.3.Make use of household items: Use cat litter or old coffee grounds to dispose medications if other options arenot available. Mix your drugs with these household products, seal them in an airtight container andthrow it into the garbage. Call [facility]: [phone] to be sure your drugs can be disposed of in this way. Some medicines may require a different approach.4.Never flush your medications down the toilet. IF YOU HAVE BEEN PRESCRIBED AN OPIOIDS FOR PAIN If you have been prescribed an opioid (such as hydrocodone, oxycodone or morphine), it is critical to understand the possible side effects and risks of opioid pain medications. Even when taken as directed, opioids can have several side effects including: Tolerance, meaning you might need to take more of a medication for the same pain relief. Nausea, vomiting and/or constipation. Sleepiness, dizziness, dry mouth, confusion, depression or itching. Physical dependence, meaning you have withdrawal symptoms when a medication is stopped ? this can develop within a few days. KNOW YOUR RESPONSIBILITIES It is important to know exactly how much and how often to take the opioid pain medications you are prescribed. Never take opioids in higher amounts or more often than prescribed. Do not combine opioids with alcohol or other drugs that cause drowsiness, such as benzodiazepines, also known as benzos,including diazepam and alprazolam, muscle relaxants or sleep aids. Never sell or share prescriptionopioids. This is illegal. Store opioids in a secure place and out of reach of others (including children, family, friends and visitors). The last page(s) of this document has been signed and retained as a CHART COPY Signatures Patient Education Materials Missed Miscarriage Medication Leaflets My discharge plan and instructions have been reviewed and explained to me and IDORIAN CHRISTINAA understand my current condition and have read and understand these discharge instructions. I havereceived a written copy of the plan/instructions. If I have questions, I am aware that I should contact my doctor. Patient/Division Head Signature: Date/Time: Relationship to Patient: Witness Name/Signature: Date/Time: [facility]06-15-2024 Hospital Discharge instructions Patient Education 12/21/2023 19:43:54 Missed Miscarriage Missed Miscarriage Today's exams show your has ended suddenly. This can be emotionally difficult. There is little that can be done to change the way you feel. But understand that miscarriages are common. About 1 or 2 out of every [address] Some even end before you know you are . This happens for a number of reasons, and usually the cause is never known. It s important you know that it is not your fault. It didn t happen because you did anything wrong. Having sex or exercising does not cause a miscarriage. These activities are usually safe unless youhave pain or bleeding or your doctor tells you to stop. Even minor falls won t cause a miscarriage.Miscarriages happen because things were not developing as they were supposed to. You still have some tissue from the in your uterus. Because of this, you may have some bleeding. It might be light spotting or as heavy as a period. You may also have some cramping. Usuallyall of the tissue will pass out by itself and nothing else needs to be done. But sometimes tissue stays in the uterus. In that case, it must be removed to stop bleeding and prevent infection. After you have recovered, you should still be able to get again. But before trying, talk with your healthcare provider. Home care Follow these tips to take of yourself at home: You can go back to your normal activities if you don t have heavy bleeding or pain. You may have some cramping and bleeding, but it shouldn t be severe. Until the bleeding stops completely and to prevent infection: Don t have sex until your healthcare provider says it s OK Use sanitary napkins instead of tampons. Don t douche. Having a miscarriage can be very difficult emotionally. It is natural to feel sadness or grief. It may help to talk about your feelings with family and friends, or with a counselor. Follow-up care Follow up with your healthcare provider, or as advised. You may pass tissue. If you see anything, it may appear as a 1-inch or larger piece of melissa or pink flesh. If tissue has not passedfrom your vagina within the next 5 days, you need to see your healthcare provider for another exam.To prevent infection in the uterus, your provider might need to take out the tissue by surgery. Or you may be given medicine to take at home to help your body expel the rest of the tissue. If you had an ultrasound, a radiologist will review it. You will be told of any new findings that may affect your care. Call 911 Call 911 if you have: Severe pain and very heavy bleeding Severe lightheadedness, passing out, or fainting Rapid heart rate Difficulty breathing Confusion or difficulty waking up When to seek medical advice Call your healthcare provider right away if any of these occur: Heavy bleeding. This means soaking 1 new pad an hour over 3 hours. Foul-smelling vaginal discharge Fever of 100.4 F (38 C) or higher, or as directed by your healthcare provider Pain in your lower belly (abdomen) that gets worse Weakness or dizziness Passage of anything that resembles tissue. This would be pink or grayish membrane or solid material. Save the tissue in a clean container and bring it to your provider. [id number] [employer]. [address] [place] [address]. All rights reserved. This information is not intended as a substitute for professional medical care. Always follow yourhealthcare professional's instructions. Follow Up Care 12/21/2023 18:06:50 With:DANIEL SPANGLER DO Address: [address] [place] [address] [address] [place] [address]- [phone] When:2-4 days With:TOMÁS DICKEY MD Address: [address] [place] [address] [place] [address]- When:2-4 days [facility] 01-19-2024 Note. MICRO - Microbiology PROCEDURE: Urine Culture [*1] SOURCE: Urine BODY SITE: COLLECTED DATE/TIME: 07/24/2023 16:31 EST RECEIVED DATE/TIME: 07/24/2023 19:40 EST START DATE/TIME: 07/24/2023 19:40 EST FREE TEXT SOURCE: FINAL REPORTS Final Report [] Verified Date/Time/Personnel: 07/26/2023 07:51 EST 10,000 - 50,000 cfu/ml Mixed growth consistent with normal urogenital chepe. PRELIMINARY REPORTS Preliminary Report [] Verified Date/Time/Personnel: 07/25/2023 09:46 EST No growth to date Performing Locations *1: This test was performed at: [facility], [address] [place] [address], [address] , [facility] ([place])04-29-2023 Discharge summary Author Brenda Saunders [facility] April 29, 2023 4:34pm Note Date/Time April 29, 2023 4 :08pm [facility] Medical Records Department [address] [place] [address] Emergency Department Summary 04/29/23 MR#: [id number] Acct: [id number] Name: PABLO ALARCON Rep #:[id number] : 1995 27 From: Brenda Garcia PCP: Dr. Tomás Dickey MD Status:REG ER Location: ED HPI HPI - URI History of Present Illness Chief Complaint: Cold Sx Informant: patient Narrative Narrative: Patient is a 27-year-old female with history of anxiety, seizures, high blood pressure and migraines presenting with URI symptoms. She notes that her boyfriend has had similar symptoms and was tested for COVID yesterday which resulted positive. Patient states she has had 2 days of symptoms consisting of cough, runny nose, headache, body aches, low back pain and chills. She notes she was recently on antibiotics for urinary tract infection. She also tells me that she is 21 to 22 days late on her menstrual cycle. She is not taken home test. Patient notes that she did recently transition from an implanted contraceptive to control pills. No other complaints or concernsat this time. Patient states that she does require notes because she goes to a parenting groupand is also concerned because she is taking care of a 3-month-old child who was in the NICU [facility] ED Constitutional Constitutional ED: Reports chills and fever(s) Eyes Eyes: Denies change in vision ENT ENT ED: Reports ear pain and rhinorrhea Cardiovascular Cardiovascular: Denies chest pain Respiratory/Chest Respiratory/Chest: Reports cough; Denies dyspnea Gastrointestinal Gastrointestinal: Denies abdominal pain or vomiting Genitourinary Genitourinary ED: Reports other Details: Abnormal menstrual cycle ; Denies dysuria or hematuria Musculoskeletal Musculoskeletal: Reports myalgias; Denies arthralgias Integumentary Denies rash Neurologic Neurologic: Reports headache(s) Psychiatric Psychiatric: Denies anxiety PFSH PFSH Medical History no medical history Home Medications alprazolam 0.25 mg tablet 1 mg PO TID 06/19/18 [History Last Taken Unknown] levetiracetam 500 mg tablet 500 mg PO BID 04/04/19 [History Last Taken Unknown] albuterol sulfate 90 mcg/actuation breath activated powder inhaler (ProAir RespiClick) 1 inh inhalation Q6H PRN shortness of breath or wheezing #1 ea 04/29/23 [Rx Last Taken Unknown] bisoprolol 5 mg-hydrochlorothiazide 6.25 mg tablet 1 tab PO DAILY 04/29/23 [History Last Taken Unknown] drospirenone 3 mg-ethinyl estradiol 0.02 mg tablet 1 tab PO DAILY 04/29/23 [History Last Taken Unknown] nirmatrelvir 300 mg (150 mg x2)-ritonavir 100 mg tablet,dose pack (Paxlovid) SeeRx Instructions PO .COMPLEX #30 tabs 04/29/23 [Rx Last Taken Unknown] rizatriptan 10 mg tablet 10 mg PO DAILY 04/29/23 [History Last Taken Unknown] topiramate 50 mg tablet 50 mg PO .hs 04/29/23 [History Last Taken Unknown] Allergy/AdvReac Type Severity Reaction Status Date / Time No Known Allergies Allergy Verified 04/29/23 13:22 Social History Smoking Status: Current every day smoker tobacco type: e-cigarettes EXAM Physical Exam Const Vital Signs: 04/29/23 13:22 04/29/23 15:05 04/29/23 15:05 Temperature 98.1 F 98.6 F Temperature Source Temporal Temporal Pulse Rate 118 H 89 89 Respiratory Rate 18 16 16 Respiratory Effort Respiratory Pattern Blood Pressure 132/103 H 143/94 H 143/94 H Blood Pressure Mean 112 110 110 Pulse Ox 99 98 98 Oxygen Delivery Method Room Air Room Air Room Air 04/29/23 15:05 Temperature Temperature Source Pulse Rate Respiratory Rate Respiratory Effort Normal Respiratory Pattern Normal Blood Pressure Blood Pressure Mean Pulse Ox Oxygen Delivery Method Positive well nourished and well developed General Appearance ED: well developed and NAD HEENT Reports moist mucous membranes normocephalic and atraumatic Throat: posterior oropharynx abnormal Positive for erythema (Injected); Negativefor edema or exudates Eyes PERRL and EOMs intact bilaterally Neck supple and no meningeal signs General: Negative for lymphadenopathy Resp normal respiratory effort and clear to auscultation bilaterally Resp Narrative: Patient does have a coarse bronchial sounding cough intermittently on my evaluation of her Auscultation: Negative for rhonchi or wheezes Cardio no murmurs Rate: regular rate Rhythm: regular rhythm GI non-tender and non-distended Extremity normal to inspection and full ROM Neuro oriented x3 Sensorium / Orientation: alert Motor Exam: Negative for general weakness Psych mental status grossly normal Skin Rashes: no rashes MDM MDM MDM Narrative Medical decision making narrative: Patient evaluated for 2 days of URI symptoms. She has known COVID exposure. Protocol COVID and flu test ordered by nursing. Patient is COVID-positive. This is consistent with her symptoms. She is otherwise well-appearing. She hasclear breath sounds I do not think she requires a chest x-ray. Low suspicion for associated pneumonia. Patient does report irregular menstrual cycle so we will obtain a test. Suspect patient might develop bronchitis given her current cough and her continued tobacco use. Will prescribe her an inhaler for this. She will continue take [id number] cough and cold medicine as well as Mucinex. Given a note and counseled on isolation precautions (masking for 5 days). test is negative. Discussed risk and benefits of Paxlovid. Patient does have underlying hypertension. She is interested in taking Paxlovid. Will prescribe this. Did review patient's medication list with her as well. Lab Data Labs: Laboratory Results - last 24 hr 04/29/23 15:34 Urine Test Negative Discharge Plan Triage Chief Complaint: Cold Sx ED Provider: Brenda Saunders Dx/Rx/DC Orders Clinical Impression: COVID-19 virus infection, Cough Instructions: Coronavirus Disease 2019 (COVID-19): Overview Prescriptions: New ProAir RespiClick 90 mcg/actuation aerosol powdr breath activated 1 inh inhalation Q6H PRN (Reason: shortness of breath or wheezing) Qty: 1 0RF Paxlovid 300 mg (150 mg x 2)-100 mg tablets,dose pack See Rx Instructions .ROUTE .COMPLEX Qty: 30 0RF Rx Instructions: take TWO 150 mg tablets of nirmatrelvir with ONE 100 mg tablet of ritonavir twice daily for 5 days No Action alprazolam 0.25 MG tablet 1 mg PO TID levetiracetam 500 MG tablet 500 mg PO BID Patient Comments: TAKE 1 TABLET TWICE DAILY rizatriptan 10 mg tablet 10 mg PO DAILY Patient Comments: Take 1 (ONE) tablet by mouth AT ONSET OF HEADACHE may repeat in 2 (TWO) hours... (REFER TO PRESCRIPTION NOTES).] bisoprolol-hydrochlorothiazide 5-6.25 mg tablet 1 tab PO DAILY Patient Comments: TAKE 1 TABLET BY MOUTH ONCE DAILY topiramate 50 mg tablet 50 mg PO .hs Patient Comments: TAKE 1 TABLET BY MOUTH EVERY DAY AT BEDTIME drospirenone-ethinyl estradiol 3-0.02 mg tablet 1 tab PO DAILY Patient Comments: TAKE 1 TABLET BY MOUTH EVERY DAY Stand Alone Forms: ED Work / School Excuse Primary Care Provider: Tomás Dickey Referrals: Tomás Dickey MD [Primary Care Provider] - Activity Restrictions/Additional Instructions: Your COVID test was positive. You need to isolate and mask around others for 5 days from onset of symptoms. At the end of 5 days if you are fever free and your symptoms are improving you may end isolation. If you have shortness of breath or difficulty breathing continue to isolate through 10 days. If you havefurther concerns please return to the emergency room. Your test was negative today. Antiviral medication to treat COVID (Paxlovid) may make your control more effective. We recommend you use nonhormonal control such as condoms whiletaking this medication and until you have your next menstrual cycle. In addition it can make your alprazolam stronger. You might need to take less of it to have the same effect. Disposition Disposition: Home, Self Care What to do if you have Problems For any increased pain, shortness of breath, bleeding, nausea or vomiting, chestpain, or any unexpected problems, contact your Primary Care Provider. Call [facility] ([phone]) or report to the closest Emergency Room. Call 911 if necessary. 04/29/23 8029 <Electronically signed by Brenda Saunders DO> Cosigner Signature (if applicable): CC: Dr. Tomás Dickey MD ~ Signed [facility] Work Phone: [phone]) 231-480110-08-2023 Note. MICRO - Microbiology PROCEDURE: Urine Culture [*1] SOURCE: Urine, Clean Catch BODY SITE: COLLECTED DATE/TIME: 04/12/2023 17:15 EDT RECEIVED DATE/TIME: 04/12/2023 19:12 EDT START DATE/TIME: 04/12/2023 19:12 EDT FREE TEXT SOURCE: FINAL REPORTS Final Report [] Verified Date/Time/Personnel: 04/14/2023 08:29 EDT >100,000 cfu/ml Mixed growth consistent with normal urogenital chepe. PRELIMINARY REPORTS Preliminary Report [] Verified Date/Time/Personnel: 04/13/2023 10:28 EDT No growth to date Performing Locations *1: This test was performed at: [facility], [address] [place] [address], [facility] , [facility] ([place])09-10-2022 Procedure [facility]10-24-2022 Note ORIGINAL HISTORY: Neurofibromatosis type 2 COMPARISON: 02 August 2020 TECHNIQUE: 1. Sagittal and axial T1-weighted images. 2. Axial FLAIR images. 3. Axial T2-weighted and T2*-weighted images. 4. Axial diffusion-weighted images with ADC map. 5. Axial, sagittal and coronal T1-weighted images following uncomplicated administration of intravenous gadolinium contrast. FINDINGS: The ventricles and sulci are normal in size and configuration. There are no abnormal intra or extra-axial fluid collections. Melissa-white matter differentiation is maintained. There is no abnormal restriction of diffusion. There is no abnormal enhancement of the brain or its coverings. The orbital contents are unremarkable in appearance. No optic nerve abnormality is seen on either side, although the orbits are not well evaluated on this examination. There is a soft tissue defect or thinning of the scalp over the left parietal region. IMPRESSION: Unremarkable examination of the brain. The orbits are not well evaluated here; no abnormality is seen. Superficial parietal abnormality, not significantly changed. Interpreted by: Kei Hernandez MD Preliminary Report By: Kei Hernandez MD Electronically signed By Kei Hernandez MD Dictated Date: 04/30/2022 4:12:01 PM Prelim Date: 04/30/2022 4:15:11 PM Sign Date: 04/30/2022 4:15:11 PM Ordering Provider: KVNG MCPHERSON [facility]10-24-2022 Note ORIGINAL HISTORY: Neurofibromatosis type 2 COMPARISON: 02 August 2020 TECHNIQUE: 1. Sagittal and axial T1-weighted images. 2. Axial FLAIR images. 3. Axial T2-weighted and T2*-weighted images. 4. Axial diffusion-weighted images with ADC map. 5. Axial, sagittal and coronal T1-weighted images following uncomplicated administration of intravenous gadolinium contrast. FINDINGS: The ventricles and sulci are normal in size and configuration. There are no abnormal intra or extra-axial fluid collections. Melissa-white matter differentiation is maintained. There is no abnormal restriction of diffusion. There is no abnormal enhancement of the brain or its coverings. The orbital contents are unremarkable in appearance. No optic nerve abnormality is seen on either side, although the orbits are not well evaluated on this examination. There is a soft tissue defect or thinning of the scalp over the left parietal region. IMPRESSION: Unremarkable examination of the brain. The orbits are not well evaluated here; no abnormality is seen. Superficial parietal abnormality, not significantly changed. Interpreted by: Kei Hernandez MD Preliminary Report By: Kei Hernandez MD Electronically signed By Kei Hernandez MD Dictated Date: 04/30/2022 4:12:01 PM Prelim Date: 04/30/2022 4:15:11 PM Sign Date: 04/30/2022 4:15:11 PM Ordering Provider: [facility]09-08-2022 Hospital Discharge instructions Patient Education 03/15/2022 10:25:25 Viral Syndrome (Adult) Viral Syndrome (Adult) A viral illness may cause a number of symptoms such as fever. Other symptoms depend on the part of the body that the virus affects. If it settles in your nose, throat, and lungs, it may cause cough, sore throat, congestion, runny nose, headache, earache and other ear symptoms, or shortness of breath. If it settles in your stomach and intestinal tract, it may cause nausea, vomiting, cramping, and diarrhea. Sometimes it causes generalized symptoms like aching all over, feeling tired, loss of energy, or loss of appetite. A viral illness usually lasts anywhere from several days to several weeks, but sometimes it lasts longer. In some cases, a more serious infection can look like a viral syndrome in the first few days of the illness. You may need another exam and additional tests to know the difference. Watch for thewarning signs listed below for when to seek medical advice. Home care Follow these guidelines for taking care of yourself at home: If symptoms are severe, rest at home for the first 2 to 3 days. Stay away from cigarette smoke - both your smoke and the smoke from others. You may use jiln-dzf-yaafmsh acetaminophen or ibuprofen for fever, muscle aching, and headache, unless another medicine was prescribed for this. If you have chronic liver or kidney disease or ever had a stomach ulcer or gastrointestinal bleeding, talk with your healthcare provider before using these medicines. No one who is younger than 18 and ill with a fever should take aspirin. It may cause severe disease or . Your appetite may be poor, so a light diet is fine. Avoid dehydration by drinking 8 to 12, 8-ounce glasses of fluids each day. This may include water; orange juice; lemonade; apple, grape, and cranberry juice; clear fruit drinks; electrolyte replacement and sports drinks; and decaffeinated teas andcoffee. If you have been diagnosed with a kidney disease, ask your healthcare provider how much andwhat types of fluids you should drink to prevent dehydration. If you have kidney disease, drinking too much fluid can cause it build up in the your body and be dangerous to your health. Ahsw-yie-rsqmjdp remedies won't shorten the length of the illness but may be helpful for symptoms such as cough, sore throat, nasal and sinus congestion, or diarrhea. Don't use decongestants if you have high blood pressure. Follow-up care Follow up with your healthcare provider if you do not improve over the next week. Call 911 Call 911 if any of the following occur: Convulsion Feeling weak, dizzy, or like you are going to faint Chest pain, or more than mild shortness of breath When to seek medical advice Call your healthcare provider right away if any of these occur: Cough with lots of colored sputum (mucus) or blood in your sputum Chest pain, shortness of breath, wheezing, or trouble breathing Severe headache; face, neck, or ear pain Severe, constant pain in the lower right side of your belly (abdominal) Continued vomiting (can t keep liquids down) Frequent diarrhea (more than 5 times a day); blood (red or black color) or mucus in diarrhea Feeling weak, dizzy, or like you are going to faint Extreme thirst Fever of 100.4 F (38 C) or higher, or as directed by your healthcare provider [id number] [employer]. [address] [place] [address], [place] [address]. All rights reserved. This information is not intended as a substitute for professional medical care. Always follow yourhealthcare professional's instructions. Follow Up Care 03/15/2022 10:15:34 With:TOMÁS DICKEY MD Address: [address] [place] [address]- When:2-4 days [facility] 09-08-2022 SARS-CoV-2 (COVID-19) RNA GOLDEN+probe Ql (Nph) Negative *NA* (03/15/22 10:37 AM)AO Auto Urine [id number] Note Discharge Instructions Thank you for allowing [facility] to assist you with your healthcare needs. The following is importantdischarge information regarding your hospital visit. Diagnosis from Today's Visit Viral syndrome Medical screening exam What to Do Next Instructions from Your Care Team No qualifying data available. Post Acute Orders No qualifying data available. You Need to Schedule the Following Appointments Follow Up with TOMÁS DICKEY MD When Within 2-4 days Where: [place] [address]- Allergies NKA Medications Please ask your primary doctor or pharmacist before taking any other medication not listed, including over the counter drugs, herbal medications, vitamins and or supplements as they may interact withyour home medications. What How Much When Why Instructions Last Dose Unchanged albuterol (albuterol 2.5 mg/ 3 mL (0.083%) inhalation solution) 3 Milliliter by inhalation Every 6 hours Asthmatic bronchitis H/O neurofibromatosis Unchanged albuterol (ProAir HFA MDI (90 mcg/ inh) inhalation aerosol) 2 puff(s) by inhalation Every 6 hours Bronchospasm Unchanged ALPRAZolam (ALPRAZolam 2 mg oral tablet) 1 tab(s) by mouth Three (3) times a day as needed for as needed for anxiety Generalized anxiety disorder Duration: 30 Days Unchanged bisoprolol-hydrochlorothiazide (bisoprolol-hydrochlorothiazide 5 - 6.25 mg oral tablet) 1 tab(s) by mouth Every day Overweight (BMI 25.0-29.9) Hypertension Overweight Duration: 30 Days Unchanged fluticasone nasal (Flonase 50 mcg/ inh nasal spray) 2 spray(s) each nostril Once a day Duration: 30 Days Unchanged levETIRAcetam (levETIRAcetam 500 mg oral tablet) 1 tab(s) by mouth Two (2) times a day Duration: 30 Days Unchanged topiramate (topiramate 50 mg oral tablet) 1 tab(s) by mouth Daily at bedtime Duration: 30 Days Please take this list to your next doctor s visit. Bring all medications you take, including over the counter medications, herbals and other supplements with you to your doctor s visit. Patients and families are reminded to discard old lists and to update any records with all medication providers or retail pharmacies. Education Materials Viral Syndrome (Adult) A viral illness may cause a number of symptoms such as fever. Other symptoms depend on the part of the body that the virus affects. If it settles in your nose, throat, and lungs, it may cause cough, sore throat, congestion, runny nose, headache, earache and other ear symptoms, or shortness of breath. If it settles in your stomach and intestinal tract, it may cause nausea, vomiting, cramping, and diarrhea. Sometimes it causes generalized symptoms like aching all over, feeling tired, loss of energy, or loss of appetite. A viral illness usually lasts anywhere from several days to several weeks, but sometimes it lasts longer. In some cases, a more serious infection can look like a viral syndrome in the first few days of the illness. You may need another exam and additional tests to know the difference. Watch for thewarning signs listed below for when to seek medical advice. Home care Follow these guidelines for taking care of yourself at home: If symptoms are severe, rest at home for the first 2 to 3 days. Stay away from cigarette smoke - both your smoke and the smoke from others. You may use iafg-ufn-fssqfri acetaminophen or ibuprofen for fever, muscle aching, and headache, unless another medicine was prescribed for this. If you have chronic liver or kidney disease or ever had a stomach ulcer or gastrointestinal bleeding, talk with your healthcare provider before using these medicines. No one who is younger than 18 and ill with a fever should take aspirin. It may cause severe disease or . Your appetite may be poor, so a light diet is fine. Avoid dehydration by drinking 8 to 12, 8-ounce glasses of fluids each day. This may include water; orange juice; lemonade; apple, grape, and cranberry juice; clear fruit drinks; electrolyte replacement and sports drinks; and decaffeinated teas andcoffee. If you have been diagnosed with a kidney disease, ask your healthcare provider how much andwhat types of fluids you should drink to prevent dehydration. If you have kidney disease, drinking too much fluid can cause it build up in the your body and be dangerous to your health. Abll-pzw-tvxrviq remedies won't shorten the length of the illness but may be helpful for symptoms such as cough, sore throat, nasal and sinus congestion, or diarrhea. Don't use decongestants if you have high blood pressure. Follow-up care Follow up with your healthcare provider if you do not improve over the next week. Call 911 Call 911 if any of the following occur: Convulsion Feeling weak, dizzy, or like you are going to faint Chest pain, or more than mild shortness of breath When to seek medical advice Call your healthcare provider right away if any of these occur: Cough with lots of colored sputum (mucus) or blood in your sputum Chest pain, shortness of breath, wheezing, or trouble breathing Severe headache; face, neck, or ear pain Severe, constant pain in the lower right side of your belly (abdominal) Continued vomiting (can t keep liquids down) Frequent diarrhea (more than 5 times a day); blood (red or black color) or mucus in diarrhea Feeling weak, dizzy, or like you are going to faint Extreme thirst Fever of 100.4 F (38 C) or higher, or as directed by your healthcare provider [phone] [employer]. [address] [place] [address]. All rights reserved. This information is not intended as a substitute for professional medical care. Always follow yourhealthcare professional's instructions. Additional Information VACCINATE! IT SAVES LIVES! Members of the community who have not yet received the COVID-19 vaccine and would like to receive it can visit one of [facility] vaccine clinics. There are many vaccine clinic locations within the [facility]. For locations and available times, please visit [email or web address]. It is important to note that some COVID mobile vaccine clinics are held outdoors and may be canceled in rainy orstormy conditions. To learn more about pediatric vaccinations (ages 5-11), we invite you to visit the [facility] webpage. [email or web address] learn more about the COVID-19 vaccine, we invite you to visit the [facility] website for a list of frequently asked questions. [email or web address] [facility] Patient Portal Access Instructions: Stay connected with your healthcare team and access your personal medical information anytime with the [facility] Patient Portal. If you would like a full copy of your medical records please contact the [facility] Medical Records Department Saturday through Saturday between 8a.m. and 4:30p.m. Please follow the directions below to access the portal: 1.Access the email account you provided upon registration to the [facility].2.Look for an invitation email from [facility].3.Open the email and access the invitation link: Accept Invitation to [facility]4.Fill in the required bautista to create your account. Sign into [email or web address] with your username and password that you created in the above steps to stay up to date. You can then view a summary of results, a summary of your visits, and the ability to download your summaries to your computer or send the information securely to a physician. Remember that your healthcare information is confidential, so carefully consider who you will allow to register on the [facility] Patient Portal for access to your information. You can also access the [facility] Patient Portal on the [employer] ainsley. Simply click on Health Records under girnarsoft and then click on the Bart logo. HOW TO SAFELY DISPOSE OF PRESCRIPTION MEDICATIONS Please use one of the following methods to safely dispose of your unused medications. 1.Use a drug disposal kit: the drug disposal pouch allows you to safely discard your old and unuseddrugs. Ask your nurse to give you one when you are discharged.2.Visit a local take-back location: Many local pharmacies and police departments have programs that collect old and unwanted prescriptiondrugs. Call your local pharmacy or go to http://[employer].Domain Media/3O0Db9n to find one close to you.3.Make use of household items: Use cat litter or old coffee grounds to dispose medications if other options arenot available. Mix your drugs with these household products, seal them in an airtight container andthrow it into the garbage. Call [facility]: [phone] to be sure your drugs can be disposed of in this way. Some medicines may require a different approach.4.Never flush your medications down the toilet. IF YOU HAVE BEEN PRESCRIBED AN OPIOIDS FOR PAIN If you have been prescribed an opioid (such as hydrocodone, oxycodone or morphine), it is critical to understand the possible side effects and risks of opioid pain medications. Even when taken as directed, opioids can have several side effects including: Tolerance, meaning you might need to take more of a medication for the same pain relief. Nausea, vomiting and/or constipation. Sleepiness, dizziness, dry mouth, confusion, depression or itching. Physical dependence, meaning you have withdrawal symptoms when a medication is stopped ? this can develop within a few days. KNOW YOUR RESPONSIBILITIES It is important to know exactly how much and how often to take the opioid pain medications you are prescribed. Never take opioids in higher amounts or more often than prescribed. Do not combine opioids with alcohol or other drugs that cause drowsiness, such as benzodiazepines, also known as benzos,including diazepam and alprazolam, muscle relaxants or sleep aids. Never sell or share prescriptionopioids. This is illegal. Store opioids in a secure place and out of reach of others (including children, family, friends and visitors). The last page(s) of this document has been signed and retained as a CHART COPY Signatures Patient Education Materials Viral Syndrome (Adult) Medication Leaflets My discharge plan and instructions have been reviewed and explained to me and IDORIAN CHRISTINAA understand my current condition and have read and understand these discharge instructions. I havereceived a written copy of the plan/instructions. If I have questions, I am aware that I should contact my doctor. Patient/Division Head Signature: Date/Time: Relationship to Patient: Witness Name/Signature: [facility] No data available for this section [facility] + Plan note Future Appointments Appointment Date:09/13/2021 01:00:00 PM Scheduled Provider:TOMÁS DICKEY MD Location:[facility] Appointment Type:PC OV Diagnostic Tests Pending * Antinuclear Antibody Screen, Serum 08/30/21 [facility] Evaluation + Plan note Future Appointments Appointment Date:01/09/2022 02:30:00 PM Scheduled Provider:TOMÁS DICKEY MD Location:[facility] Appointment Type:PC OV Controlled Medication [facility] Evaluation + Plan note Future Appointments Appointment Date:10/16/2022 11:00:00 AM Scheduled Provider:TOMÁS DICKEY MD Location:[facility] Appointment Type:PC OV Controlled Medication [facility] Evaluation + Plan note Future Appointments Appointment Date:07/12/2023 07:30:00 AM Scheduled Provider:TOMÁS DICKEY MD Location:[facility] Appointment Type:PC OV Controlled Medication Future Scheduled Tests Radiology* CT Abdomen and Pelvis w/o contrast 01/31/23 [facility] Evaluation + Plan note Future Appointments Appointment Date:07/12/2023 07:30:00 AM Scheduled Provider:TOMÁS DICKEY MD Location:[facility] Appointment Type:PC OV Controlled Medication Future Scheduled Tests Radiology* CT Abdomen and Pelvis w/o contrast 05/06/23 * CT Abdomen and Pelvis w/o contrast 01/31/23 [facility] Evaluation + Plan note Future Appointments Appointment Date:08/27/2023 04:00:00 PM Scheduled Provider:TOMÁS DICKEY MD Location:[facility] Appointment Type:PC OV Appointment Date:10/24/2023 09:00:00 AM Scheduled Provider:TOMÁS DICKEY MD Location:[facility] Appointment Type:PC OV Controlled Medication Future Scheduled Tests Laboratory* Urine Culture 07/23/23 Radiology* CT Abdomen and Pelvis w/o contrast 05/06/23 * CT Abdomen and Pelvis w/o contrast 01/31/23 [facility] Evaluation + Plan note Future Appointments Appointment Date:04/30/2024 02:00:00 PM Scheduled Provider:TOMÁS DICKEY MD Location:[facility] Appointment Type:PC OV Controlled Medication Future Scheduled Tests Laboratory* Urine Culture 07/23/23 * Complete Blood Count 10/17/23 * Lipid Profile 04/17/24 * Complete Metabolic Panel 04/17/24 Radiology* CT Abdomen and Pelvis w/o contrast 05/06/23 * CT Abdomen and Pelvis w/o contrast 01/31/23 [facility]aluation + Plan note Future Appointments Appointment Date:04/30/2024 02:00:00 PM Scheduled Provider:TOMÁS DICKEY MD Location:[facility] Appointment Type:PC OV Controlled Medication Future Scheduled Tests Laboratory* Urine Culture 07/23/23 * Complete Blood Count 10/17/23 * Lipid Profile 04/17/24 * Complete Metabolic Panel 04/17/24 Radiology* CT Abdomen and Pelvis w/o contrast 05/06/23 [facility] evaluation + Plan note Future Appointments Appointment Date:01/01/2025 01:00:00 PM Scheduled Provider:TOMÁS DICKEY MD Location:[facility] Appointment Type:PC Wellness Annual Appointment Date:05/28/2025 01:00:00 PM Scheduled Provider:TOMÁS DICKEY MD Location:[facility] Appointment Type:PC OV Controlled Medication Future Scheduled Tests Laboratory* Urine Culture 12/04/24 * Urine Drug Screen (AO/AM/AAH Only) 12/04/24 * Lipid Profile 04/17/24 * Complete Metabolic Panel 04/17/24 [facility] Evaluation + Plan note Future Appointments Appointment Date:01/01/2025 01:00:00 PM Scheduled Provider:TOMÁS DICKEY MD Location:[facility] Appointment Type:PC Wellness Annual Appointment Date:05/28/2025 01:00:00 PM Scheduled Provider:TOMÁS DICKEY MD Location:[facility] Appointment Type:PC OV Controlled Medication Future Scheduled Tests Laboratory* Lipid Profile 04/17/24 * Complete Metabolic Panel 04/17/24 [facility] Evaluation noteNo assessment information available [facility] Work Phone: Evaluation note* Diagnosis labor in second trimester without delivery- Primary labor in second trimester without delivery Dizziness Dizziness and giddiness Hypertension affecting in third trimester documented [facility]* Diagnosis Supervision of other high risk pregnancies, second trimester- Primary 26 weeks gestation of state, incidental Chronic hypertension affecting History of seizures Personal history of other disorders of nervous system and sense organs History of nicotine vaping Anxiety and depression Dysthymic disorder Neurofibromatosis, type 1 (von Recklinghausen's disease) (HCC) Neurofibromatosis, Type 1 (von Recklinghausen's disease) Arnold-Chiari malformation (HCC) Spina bifida with hydrocephalus, unspecified region Poor historian Other specified conditions influencing health status Learning disability Other specific developmental learning difficulties [facility]* Diagnosis Suspected anomaly, antepartum, single or unspecified fetus- Primary Neurofibromatosis, type 1 (von Recklinghausen's disease) (HCC) Neurofibromatosis, Type 1 (von Recklinghausen's disease) Chronic hypertension affecting Poor historian Other specified conditions influencing health status Arnold-Chiari malformation (HCC) Spina bifida with hydrocephalus, unspecified region 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) Abnormal ultrasound Abnormal findings on screening History of seizures Personal history of other disorders of nervous system and sense organs * Assessment & Plan Note - Viola Somers MD - 05/12/2024 11:50 AM EST Associated Problem(s): Chronic hypertension affecting BP normal today Recommend home BP monitoring daily Up titrate labetalol goal BP < 140/90 BP review with MFM at next visit with echocardiogram Delivery 37-39 weeks * Assessment & Plan Note - Viola Somers MD - 05/12/2024 11:48 AM EST Associated Problem(s): Glioma of intraocular optic nerve (HCC) Noted MR brain 2009 [facility] MR brain 2017 and [facility] MR brain 2023 not noted * Assessment & Plan Note - Viola Somers MD - 05/12/2024 11:46 AM EST Associated Problem(s): Arnold-Chiari malformation (HCC) No mention of this in MR report from [facility], available 04/20/24 * Assessment & Plan Note - Viola Somers MD - 05/12/2024 11:45 AM EST Associated Problem(s): Poor historian 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 Prefers partner Natalie be informed of appointments and involved in * Assessment & Plan Note - Viola Somers MD - 05/12/2024 11:42 AM EST Associated Problem(s): Neurofibromatosis, type 1 (von Recklinghausen's disease) (HCC) Follows with Dr Martinez in [facility] Seizure disorder controlled with Keppra No seizures this Son had been tested, negative Aware of inheritance and option for genetic testing 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) Abnormal ultrasound Abnormal findings on screening History of seizures Personal history of other disorders of nervous system and sense organs 29 weeks gestation of - Primary state, incidental Supervision of other high risk pregnancies, second trimester Chronic hypertension affecting Need for influenza vaccination Need for prophylactic vaccination and inoculation against influenza Need for Tdap vaccination Need for prophylactic vaccination with combined mlwrrpnucw-kavktah-eztgjsuoh (DTP) vaccine [facility]* Diagnosis Encounter for anatomic survey- Primary with care elsewhere in third trimester Obesity affecting in second trimester, unspecified obesity type 29 weeks gestation of state, incidental Suspected anomaly, antepartum, single or unspecified fetus Suspected anomaly, antepartum, single or unspecified fetus- Primary Neurofibromatosis, type 1 (von Recklinghausen's disease) (HCC) Neurofibromatosis, Type 1 (von Recklinghausen's disease) Chronic hypertension affecting Poor historian Other specified conditions influencing health status Arnold-Chiari malformation (HCC) Spina bifida with hydrocephalus, unspecified region 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) Abnormal ultrasound Abnormal findings on screening History of seizures Personal history of other disorders of nervous system and sense organs [facility]* Diagnosis Suspected anomaly, antepartum, single or unspecified fetus- Primary Neurofibromatosis, type 1 (von Recklinghausen's disease) (HCC) Neurofibromatosis, Type 1 (von Recklinghausen's disease) Chronic hypertension affecting Poor historian Other specified conditions influencing health status Arnold-Chiari malformation (HCC) Spina bifida with hydrocephalus, unspecified region 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) Abnormal ultrasound Abnormal findings on screening History of seizures Personal history of other disorders of nervous system and sense organs Pre-existing hypertension complicating in third trimester- Primary Benign essential hypertension antepartum Neurofibromatosis, type 1 (von Recklinghausen's disease) (HCC) Neurofibromatosis, Type 1 (von Recklinghausen's disease) Chronic hypertension affecting Family history of ischemic heart disease and other diseases of the circulatory system * Assessment & Plan Note - Jonathan Manuel MD - 05/18/2024 1:27 PM ESTAssociated Problem(s): Chronic hypertension affecting Patient did not fill Rx for Labetalol change but did get Nifedipine. Has been taking Nifedipine at 60 mg BID. The Labetalol was only taken at 200 mg TID and not the 400 mg Dosing. Plan No labs visible in care everywhere since 2018. Had labs in [facility] CBC, CMP and PC Ratio ordered today. Increase Labetalol to 400 mg TID Recheck BP at 400 mg TID in 1 week Would start testing at 30 weeks because of difficulty in control of BP No FH of congenital heart disease. * Assessment & Plan Note - Jonathan Manuel MD - 05/18/2024 1:22 PM ESTAssociated Problem(s): Neurofibromatosis, type 1 (von Recklinghausen's disease) (HCC) Patient seen today. Reports doing well without seizure activity. Patient Keppra being followed by neurologist. 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) Abnormal ultrasound Abnormal findings on screening History of seizures Personal history of other disorders of nervous system and sense organs Pre-existing hypertension complicating in third trimester- Primary Benign essential hypertension antepartum Neurofibromatosis, type 1 (von Recklinghausen's disease) (HCC) Neurofibromatosis, Type 1 (von Recklinghausen's disease) Chronic hypertension affecting Family history of ischemic heart disease and other diseases of the circulatory system abnormality affecting management of mother, single or unspecified fetus- Primary 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) Abnormal ultrasound Abnormal findings on screening History of seizures Personal history of other disorders of nervous system and sense organs Pre-existing hypertension complicating in third trimester- Primary Benign essential hypertension antepartum Neurofibromatosis, type 1 (von Recklinghausen's disease) (HCC) Neurofibromatosis, Type 1 (von Recklinghausen's disease) Chronic hypertension affecting Family history of ischemic heart disease and other diseases of the circulatory system Anomaly of heart of fetus affecting , antepartum, single or unspecified fetus- Primary [facility]* Diagnosis Suspected anomaly, antepartum, single or unspecified fetus- Primary Neurofibromatosis, type 1 (von Recklinghausen's disease) (HCC) Neurofibromatosis, Type 1 (von Recklinghausen's disease) Chronic hypertension affecting Poor historian Other specified conditions influencing health status Arnold-Chiari malformation (HCC) Spina bifida with hydrocephalus, unspecified region 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) Abnormal ultrasound Abnormal findings on screening History of seizures Personal history of other disorders of nervous system and sense organs Pre-existing hypertension complicating in third trimester- Primary Benign essential hypertension antepartum Neurofibromatosis, type 1 (von Recklinghausen's disease) (HCC) Neurofibromatosis, Type 1 (von Recklinghausen's disease) Chronic hypertension affecting Family history of ischemic heart disease and other diseases of the circulatory system Arnold-Chiari malformation (HCC)- Primary Spina bifida with hydrocephalus, unspecified region Supervision of other high risk pregnancies, second trimester [facility]* Diagnosis Suspected anomaly, antepartum, single or unspecified fetus- Primary Neurofibromatosis, type 1 (von Recklinghausen's disease) (HCC) Neurofibromatosis, Type 1 (von Recklinghausen's disease) Chronic hypertension affecting Poor historian Other specified conditions influencing health status Arnold-Chiari malformation (HCC) Spina bifida with hydrocephalus, unspecified region 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) Abnormal ultrasound Abnormal findings on screening History of seizures Personal history of other disorders of nervous system and sense organs Pre-existing hypertension complicating in third trimester- Primary Benign essential hypertension antepartum Neurofibromatosis, type 1 (von Recklinghausen's disease) (HCC) Neurofibromatosis, Type 1 (von Recklinghausen's disease) Chronic hypertension affecting Family history of ischemic heart disease and other diseases of the circulatory system Maternal care for other (suspected) abnormality and damage, cardiac anomalies, fetus 1- Primary Neurofibromatosis, type 1 (HCC) Neurofibromatosis, Type 1 (von Recklinghausen's disease) Family history of autism Family history of psychiatric condition 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) Abnormal ultrasound Abnormal findings on screening History of seizures Personal history of other disorders of nervous system and sense organs Pre-existing hypertension complicating in third trimester- Primary Benign essential hypertension antepartum Neurofibromatosis, type 1 (von Recklinghausen's disease) (HCC) Neurofibromatosis, Type 1 (von Recklinghausen's disease) Chronic hypertension affecting Family history of ischemic heart disease and other diseases of the circulatory system Chronic hypertension affecting - Primary 31 weeks gestation of state, incidental Supervision of other high risk pregnancies, second trimester Rubella non-immune status, antepartum Other specified complication, antepartum Neurofibromatosis, type 1 (von Recklinghausen's disease) (HCC)- Primary Neurofibromatosis, Type 1 (von Recklinghausen's disease) Chronic hypertension affecting Anomaly of heart of fetus affecting , antepartum, single or unspecified fetus Abnormal ultrasound Abnormal findings on screening 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) History of nicotine vaping 31 weeks gestation of state, incidental [facility] Diagnosis Suspected anomaly, antepartum, single or unspecified fetus- Primary Neurofibromatosis, type 1 (von Recklinghausen's disease) (HCC) Neurofibromatosis, Type 1 (von Recklinghausen's disease) Chronic hypertension affecting Poor historian Other specified conditions influencing health status Arnold-Chiari malformation (HCC) Spina bifida with hydrocephalus, unspecified region 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) Abnormal ultrasound Abnormal findings on screening History of seizures Personal history of other disorders of nervous system and sense organs Pre-existing hypertension complicating in third trimester- Primary Benign essential hypertension antepartum Neurofibromatosis, type 1 (von Recklinghausen's disease) (HCC) Neurofibromatosis, Type 1 (von Recklinghausen's disease) Chronic hypertension affecting Family history of ischemic heart disease and other diseases of the circulatory system Neurofibromatosis, type 1 (von Recklinghausen's disease) (HCC)- Primary Neurofibromatosis, Type 1 (von Recklinghausen's disease) Chronic hypertension affecting Anomaly of heart of fetus affecting , antepartum, single or unspecified fetus Abnormal ultrasound Abnormal findings on screening 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) History of nicotine vaping 31 weeks gestation of state, incidental Chronic hypertension affecting - Primary History of seizures Personal history of other disorders of nervous system and sense organs Anomaly of heart of fetus affecting , antepartum, single or unspecified fetus 31 weeks gestation of state, incidental 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) Abnormal ultrasound Abnormal findings on screening History of seizures Personal history of other disorders of nervous system and sense organs Pre-existing hypertension complicating in third trimester- Primary Benign essential hypertension antepartum Neurofibromatosis, type 1 (von Recklinghausen's disease) (HCC) Neurofibromatosis, Type 1 (von Recklinghausen's disease) Chronic hypertension affecting Family history of ischemic heart disease and other diseases of the circulatory system Neurofibromatosis, type 1 (von Recklinghausen's disease) (HCC)- Primary Neurofibromatosis, Type 1 (von Recklinghausen's disease) Chronic hypertension affecting Anomaly of heart of fetus affecting , antepartum, single or unspecified fetus Abnormal ultrasound Abnormal findings on screening 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) History of nicotine vaping 31 weeks gestation of state, incidental * Assessment & Plan Note - Viola Somers MD - 05/26/2024 8:45 AM ESTAssociated Problem(s): Neurofibromatosis, type 1 (von Recklinghausen's disease) (HCC) With known seizure disorder well controled on Keppra Follows with neurologist outside [facility] Seen by genetics this [employer] planned 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) Abnormal ultrasound Abnormal findings on screening History of seizures Personal history of other disorders of nervous system and sense organs Pre-existing hypertension complicating in third trimester- Primary Benign essential hypertension antepartum Neurofibromatosis, type 1 (von Recklinghausen's disease) (HCC) Neurofibromatosis, Type 1 (von Recklinghausen's disease) Chronic hypertension affecting Family history of ischemic heart disease and other diseases of the circulatory system Neurofibromatosis, type 1 (von Recklinghausen's disease) (HCC)- Primary Neurofibromatosis, Type 1 (von Recklinghausen's disease) Chronic hypertension affecting Anomaly of heart of fetus affecting , antepartum, single or unspecified fetus Abnormal ultrasound Abnormal findings on screening 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) History of nicotine vaping 31 weeks gestation of state, incidental 31 weeks gestation of - Primary state, incidental Chronic hypertension affecting Supervision of other high risk pregnancies, second trimester Chronic hypertension with superimposed pre-eclampsia- Primary Chronic hypertension with superimposed pre-eclampsia Leukocytosis Leukocytosis, unspecified Rubella non-immune status, antepartum Other specified complication, antepartum Neurofibromatosis, type 1 (von Recklinghausen's disease) (HCC) Neurofibromatosis, Type 1 (von Recklinghausen's disease) Arnold-Chiari malformation (HCC) Spina bifida with hydrocephalus, unspecified region Learning disability Other specific developmental learning difficulties Anxiety and depression Dysthymic disorder History of seizures Personal history of other disorders of nervous system and sense organs cardiac anomaly complicating , antepartum Other known or suspected abnormality, not elsewhere classified, affecting management of mother, antepartum condition or complication Asthma Unspecified asthma Prematurity Other infants, unspecified (weight) History of nicotine vaping 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) Abnormal ultrasound Abnormal findings on screening History of seizures Personal history of other disorders of nervous system and sense organs Pre-existing hypertension complicating in third trimester- Primary Benign essential hypertension antepartum Neurofibromatosis, type 1 (von Recklinghausen's disease) (HCC) Neurofibromatosis, Type 1 (von Recklinghausen's disease) Chronic hypertension affecting Family history of ischemic heart disease and other diseases of the circulatory system Neurofibromatosis, type 1 (von Recklinghausen's disease) (HCC)- Primary Neurofibromatosis, Type 1 (von Recklinghausen's disease) Chronic hypertension affecting Anomaly of heart of fetus affecting , antepartum, single or unspecified fetus Abnormal ultrasound Abnormal findings on screening 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) History of nicotine vaping 31 weeks gestation of state, incidental Hypertension complicating , delivered, current hospitalization- Primary Unspecified hypertension, with delivery Chronic hypertension with superimposed pre-eclampsia Labor and delivery indication for care or intervention Unspecified indication for care or intervention related to labor and delivery, unspecified as to episode of care Acute pulmonary edema (HCC) Acute edema of lung, unspecified Anomaly of heart of fetus affecting , antepartum, single or unspecified fetus Chronic hypertension affecting Hypertension complicating , delivered, current hospitalization Unspecified hypertension, with delivery Chronic hypertension with superimposed pre-eclampsia Leukocytosis Leukocytosis, unspecified Rubella non-immune status, antepartum Other specified complication, antepartum Neurofibromatosis, type 1 (von Recklinghausen's disease) (HCC) Neurofibromatosis, Type 1 (von Recklinghausen's disease) Arnold-Chiari malformation (HCC) Spina bifida with hydrocephalus, unspecified region Learning disability Other specific developmental learning difficulties Anxiety and depression Dysthymic disorder History of seizures Personal history of other disorders of nervous system and sense organs cardiac anomaly complicating , antepartum Other known or suspected abnormality, not elsewhere classified, affecting management of mother, antepartum condition or complication Asthma Unspecified asthma Prematurity Other infants, unspecified (weight) History of nicotine vaping Chest pain Chest pain, unspecified Hypoxia Hypoxemia Pulmonary edema Pulmonary congestion and hypostasis state Routine follow-up Labor and delivery indication for care or intervention Unspecified indication for care or intervention related to labor and delivery, unspecified as to episode of care Pre-eclampsia in third trimester- Primary Mild or unspecified pre-eclampsia, antepartum Encounter for IUD insertion Encounter for insertion of intrauterine contraceptive device 2 weeks follow-up Post depression Mental disorders of mother, 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) Abnormal ultrasound Abnormal findings on screening History of seizures Personal history of other disorders of nervous system and sense organs Pre-existing hypertension complicating in third trimester- Primary Benign essential hypertension antepartum Neurofibromatosis, type 1 (von Recklinghausen's disease) (HCC) Neurofibromatosis, Type 1 (von Recklinghausen's disease) Chronic hypertension affecting Family history of ischemic heart disease and other diseases of the circulatory system Neurofibromatosis, type 1 (von Recklinghausen's disease) (HCC)- Primary Neurofibromatosis, Type 1 (von Recklinghausen's disease) Chronic hypertension affecting Anomaly of heart of fetus affecting , antepartum, single or unspecified fetus Abnormal ultrasound Abnormal findings on screening 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) History of nicotine vaping 31 weeks gestation of state, incidental Hypertension complicating , delivered, current hospitalization- Primary Unspecified hypertension, with delivery Chronic hypertension with superimposed pre-eclampsia Labor and delivery indication for care or intervention Unspecified indication for care or intervention related to labor and delivery, unspecified as to episode of care Acute pulmonary edema (HCC) Acute edema of lung, unspecified Anomaly of heart of fetus affecting , antepartum, single or unspecified fetus Chronic hypertension affecting Hypertension complicating , delivered, current hospitalization Unspecified hypertension, with delivery Chronic hypertension with superimposed pre-eclampsia Leukocytosis Leukocytosis, unspecified Rubella non-immune status, antepartum Other specified complication, antepartum Neurofibromatosis, type 1 (von Recklinghausen's disease) (HCC) Neurofibromatosis, Type 1 (von Recklinghausen's disease) Arnold-Chiari malformation (HCC) Spina bifida with hydrocephalus, unspecified region Learning disability Other specific developmental learning difficulties Anxiety and depression Dysthymic disorder History of seizures Personal history of other disorders of nervous system and sense organs cardiac anomaly complicating , antepartum Other known or suspected abnormality, not elsewhere classified, affecting management of mother, antepartum condition or complication Asthma Unspecified asthma Prematurity Other infants, unspecified (weight) History of nicotine vaping Chest pain Chest pain, unspecified Hypoxia Hypoxemia Pulmonary edema Pulmonary congestion and hypostasis state Routine follow-up Labor and delivery indication for care or intervention Unspecified indication for care or intervention related to labor and delivery, unspecified as to episode of care Candidiasis of breast- Primary Other candidiasis of other specified sites Lactating mother care and examination of lactating mother thrush Macrina infection 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) Abnormal ultrasound Abnormal findings on screening History of seizures Personal history of other disorders of nervous system and sense organs Pre-existing hypertension complicating in third trimester- Primary Benign essential hypertension antepartum Neurofibromatosis, type 1 (von Recklinghausen's disease) (HCC) Neurofibromatosis, Type 1 (von Recklinghausen's disease) Chronic hypertension affecting Family history of ischemic heart disease and other diseases of the circulatory system Neurofibromatosis, type 1 (von Recklinghausen's disease) (HCC)- Primary Neurofibromatosis, Type 1 (von Recklinghausen's disease) Chronic hypertension affecting Anomaly of heart of fetus affecting , antepartum, single or unspecified fetus Abnormal ultrasound Abnormal findings on screening 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) History of nicotine vaping 31 weeks gestation of state, incidental Hypertension complicating , delivered, current hospitalization- Primary Unspecified hypertension, with delivery Chronic hypertension with superimposed pre-eclampsia Labor and delivery indication for care or intervention Unspecified indication for care or intervention related to labor and delivery, unspecified as to episode of care Acute pulmonary edema (HCC) Acute edema of lung, unspecified Anomaly of heart of fetus affecting , antepartum, single or unspecified fetus Chronic hypertension affecting Leukocytosis Leukocytosis, unspecified Neurofibromatosis, type 1 (von Recklinghausen's disease) (HCC) Neurofibromatosis, Type 1 (von Recklinghausen's disease) Arnold-Chiari malformation (HCC) Spina bifida with hydrocephalus, unspecified region Learning disability Other specific developmental learning difficulties Anxiety and depression Dysthymic disorder History of seizures Personal history of other disorders of nervous system and sense organs cardiac anomaly complicating , antepartum Other known or suspected abnormality, not elsewhere classified, affecting management of mother, antepartum condition or complication Asthma Unspecified asthma Prematurity Other infants, unspecified (weight) History of nicotine vaping Chest pain Chest pain, unspecified Hypoxia Hypoxemia Pulmonary edema Pulmonary congestion and hypostasis care and examination- Primary Routine follow-up Encounter for IUD insertion Encounter for insertion of intrauterine contraceptive device Anxiety and depression Dysthymic disorder 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) Abnormal ultrasound Abnormal findings on screening History of seizures Personal history of other disorders of nervous system and sense organs Pre-existing hypertension complicating in third trimester- Primary Benign essential hypertension antepartum Neurofibromatosis, type 1 (von Recklinghausen's disease) (HCC) Neurofibromatosis, Type 1 (von Recklinghausen's disease) Chronic hypertension affecting Family history of ischemic heart disease and other diseases of the circulatory system Neurofibromatosis, type 1 (von Recklinghausen's disease) (HCC)- Primary Neurofibromatosis, Type 1 (von Recklinghausen's disease) Chronic hypertension affecting Anomaly of heart of fetus affecting , antepartum, single or unspecified fetus Abnormal ultrasound Abnormal findings on screening 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) History of nicotine vaping 31 weeks gestation of state, incidental Hypertension complicating , delivered, current hospitalization- Primary Unspecified hypertension, with delivery Chronic hypertension with superimposed pre-eclampsia Labor and delivery indication for care or intervention Unspecified indication for care or intervention related to labor and delivery, unspecified as to episode of care Acute pulmonary edema (HCC) Acute edema of lung, unspecified Anomaly of heart of fetus affecting , antepartum, single or unspecified fetus Chronic hypertension affecting Leukocytosis Leukocytosis, unspecified Neurofibromatosis, type 1 (von Recklinghausen's disease) (HCC) Neurofibromatosis, Type 1 (von Recklinghausen's disease) Arnold-Chiari malformation (HCC) Spina bifida with hydrocephalus, unspecified region Learning disability Other specific developmental learning difficulties Anxiety and depression Dysthymic disorder History of seizures Personal history of other disorders of nervous system and sense organs cardiac anomaly complicating , antepartum Other known or suspected abnormality, not elsewhere classified, affecting management of mother, antepartum condition or complication Asthma Unspecified asthma Prematurity Other infants, unspecified (weight) History of nicotine vaping Chest pain Chest pain, unspecified Hypoxia Hypoxemia Pulmonary edema Pulmonary congestion and hypostasis Chronic hypertension with superimposed pre-eclampsia- Primary care and examination Routine follow-up Exercise counseling Nutritional assessment Other specified examination delivery Early onset of delivery, unspecified as to episode of care Low weight Other infants, unspecified (weight) documented in this encounter [facility] Discharge instructions No data available for this section [facility] Discharge instructions Additional Instructions Your COVID test was positive. You need to isolate and mask around others for 5 days from onset of symptoms. At the end of 5 days if you are fever free and your symptoms are improving you may end isolation. If you have shortness of breath or difficulty breathing continue to isolate through 10 days. If you have further concerns please return to the emergency room. Your test was negative today. Antiviral medication to treat COVID (Paxlovid) may make your control more effective. We recommend you use nonhormonal control such as condoms while taking this medication and until you have your next menstrual cycle. In addition it can make your alprazolam stronger. You might need to take less of it to have the same effect.[facility] Work Phone: Progress note No data available for this section [facility] Reason for referral (narrative)* Outpatient Procedure (Routine) - Authorized Specialty Diagnoses / Procedures Referred By Wally t Referred To [facility] Diagnoses Suspected anomaly, antepartum, single or unspecified fetus Procedures ECHO ECHO CARDIOVASC W/[place] [address] [place] [address] [address] Referral ID Status Reason Start Date Expiration Date Visits Requested Visits Authorized [id number] Authorized Auto-Generat ed Referral 05/12/2024 07/07/2024 1 1 [facility] for referral (narrative)* Outpatient Procedure (Routine) - New Request Specialty Diagnoses / Procedures Referred By Contac t Referred To Contact [facility] Diagnoses abnormality affecting management of mother, single or unspecified fetus Procedures ECHO Irving Castillo MD [address] [place] [address] [address] Referral ID Status Reason Start Date Expiration Date Visits Requested Visits Authorized [id number] New Request Auto-Generat ed Referral 4 05/18/2025 1 1 [facility] for referral (narrative)* Diagnostic Procedure Only (Routine) - Authorized Specialty Diagnoses / Procedures Referred By Contac t Referred To Contact [facility] Diagnoses Arnold-Chiari malformation (HCC) Supervision of other high risk pregnancies, second trimester Procedures BIOPHYSICAL PROFILE [facility] BIOPHYSICAL PROFILE NON-STRESS TESTING Michele aGrland MD [address] [place] [address] [address] Referral ID Status Reason Start Date Expiration Date Visits Requested Visits Authorized [id number] Authorized Auto-Generat ed Referral 4 05/25/2025 10 1 [facility] for referral (narrative)* Diagnostic Procedure Only (Routine) - New Request Specialty Diagnoses / Procedures Referred By Wally t Referred To Contact [facility] Diagnoses Chronic hypertension affecting 31 weeks gestation of Supervision of other high risk pregnancies, second trimester Procedures BIOPHYSICAL PROFILE US I BIOPHYSICAL PROFILE NON-STRESS TESTING Jocelyn Botello MD [address] [place] [address] [facility] [place] [address] Referral ID Status Reason Start Date Expiration Date Visits Requested Visits Authorized [id number] New Request Auto-Generat ed Referral 4 05/26/2025 10 1 * Outpatient Procedure (Routine) - Authorized Specialty Diagnoses / Procedures Referred By Wally t Referred To Contact [facility] Diagnoses Chronic hypertension affecting Procedures NON-STRESS TEST NON-STRESS TEST Jocelyn Botello MD [address] [place] [address] [facility] [employer] [place] [address] Referral ID Status Reason Start Date Expiration Date Visits Requested Visits Authorized [id number] Authorized Auto-Generat ed Referral 4 05/26/2025 99 1 * Diagnostic Procedure Only (Routine) - Authorized Specialty Diagnoses / Procedures Referred By Miguelac t Referred To Contact [facility] Diagnoses Chronic hypertension affecting Procedures OBSTETRIC ULTRASOUND I US PREG UTERUS AFTER 1ST TRIMEST GESTATION Jocelyn Botello MD [address] [place] [address] [facility] [place] [employer] [address] Referral ID Status Reason Start Date Expiration Date Visits Requested Visits Authorized [id number] Authorized Auto-Generat ed Referral 4 05/26/2025 10 1 [facility] for referral (narrative)* Outpatient Procedure (Routine) - Authorized Specialty Diagnoses / Procedures Referred By Contac t Referred To Contact [facility] Diagnoses Encounter for IUD insertion 2 weeks follow-up Procedures INSERT INTRAUTERINE DEVICE LEVONORGESTREL IU 52MG 5 YR INSERT INTRAUTERINE DEVICE Kofi Monreal APRN.CNM [address] [place] [address] [address] Referral ID Status Reason Start Date Expiration Date Visits Requested Visits Authorized [id number] Authorized Auto-Generat ed Referral 4 06/17/2025 1 1 * Consult, Test, Treat (Routine) - Authorized Specialty Diagnoses / Procedures Referred By Miguelac t Referred To Contact Diagnoses Pre-eclampsia in third trimester Procedures CONSULT TO PREVENTIVE CARD OFFICE/OUTPATIENT [facility] 60 MINUTES Kofi Monreal APRN.CNM [address] [place] [address] Referral ID Status Reason Start Date Expiration Date Visits Requested Visits Authorized [id number] Authorized PCP Requested Referral 4 06/18/2024 1 1 [facility] for referral (narrative)* Outpatient Procedure (Routine) - New Request Specialty Diagnoses / Procedures Referred By Contac t Referred To Contact [facility] Diagnoses Encounter for IUD insertion Procedures INSERT INTRAUTERINE DEVICE LEVONORGESTREL IU 52MG 5 YR INSERT INTRAUTERINE DEVICE Jocelyn Botello MD [address] [place] [address] [facility] [address] [place] [address] Referral ID Status Reason Start Date Expiration Date Visits Requested Visits Authorized [id number] New Request Auto-Generat ed Referral 07/15/2024 07/15/2025 1 1 [facility]No reason for referral [facility] Phone: Summary Purpose Family History No Family History Records FoundNo Family History Records Found No data available for this section No data available for this section No data available for this section No data available for this section No data available for this section No data available for this section No data available for this section No data available for this section No Family History Records Found No data available for this section No Family History Records FoundNo Family History Records Found No data available for this section No Family History Records FoundNo Family History Records FoundNo Family History Records Found No data available for this section No Family History Records Found No data available for this section No Family History Records Found Advance Directives No Advanced Directives Records FoundDocuments on File Type Date Recorded Patient Division Head Expl anation Advance Directives and Living Will Power of Abap Developer Advance Directive Response Recorded Date/ Time Living Will No May 19 7:02pm Power of Abap Developer No May 19, 2020 7:02pm Advance Directive Response Recorded Date/ Time Living Will No April 29 3:05pm Power of Abap Developer No April 29, 2023 3:05pm Date Activated Date Inactivated Comments 04/17/2024 6:50 PM 04/23/2024 9:08 PM Assessments Diagnosis Left elbow pain Pain in joint, upper arm Chief Complaint and Reason for Visit Chief Complaint Paresthesia of skin LEFT UPPER EXT Paresthesia of skin LEFT UPPER EXT Chief Complaint COLD SX Chief Complaint Admit Date CHRONIC SINUSITIS February 11, 2025 4:0 4pm Reason for Referral Specialty Diagnoses / Procedures Referred By Wally kumar Referred To Contact Diagnoses Chronic hypertension affecting History of seizures Neurofibromatosis, type 1 (von Recklinghausen's disease) (HCC) Procedures CONSULT TO MATERNAL MEDI OFFICE/OUTPATIENT [facility] 60 MINUTES Michell Avalos APRN.RACHEL [address] [address] Referral ID Status Reason Start Date Expiration Date Visits Requested Visits Authorized [id number] Authorized PCP Requested Referral Auto-Generate d Referral 04/24/2025 1 1 Specialty Diagnoses / Procedures Referred By Contac t Referred To Contact [facility] Diagnoses 26 weeks gestation of Procedures OBSTETRIC ULTRASOUND WHI US PREG UTERUS AFTER 1ST TRIMEST GESTATION Michell Avalos APRN.CN [address] [place] [address] [facility] [address] [place] [address] Referral ID Status Reason Start Date Expiration Date Visits Requested Visits Authorized [id number] New Request Auto-Generat ed Referral 4 04/24/2025 1 1 Additional Source Comments INFORMATION SOURCE (unrecogn ized section and content) DATE CREATED AUTHOR 01/09/2018 [facility] DATE CREATED AUTHOR AUTHOR'S ORGANIZ ATION 04/20/2019 [facility] DATE CREATED AUTHOR AUTHOR'S ORGANIZ ATION 03/11/2024 [facility] DATE CREATED AUTHOR AUTHOR'S ORGANIZ ATION 04/26/2024 [facility] DATE CREATED AUTHOR AUTHOR'S ORGANIZ ATION 05/03/2024 [facility] DATE CREATED AUTHOR AUTHOR'S ORGANIZ ATION 07/02/2024 [facility] DATE CREATED AUTHOR AUTHOR'S ORGANIZ ATION 08/27/2024 [facility] DATE CREATED AUTHOR AUTHOR'S ORGANIZ ATION 09/14/2024 [facility] DATE CREATED AUTHOR AUTHOR'S ORGANIZ ATION 12/09/2024 [facility] DATE CREATED AUTHOR AUTHOR'S ORGANIZ ATION 02/19/2025 [facility] Care Team (unrecognized sect ion and content) Team Status: Active Member Role Status Dates Dr. Tomás Dickey MD Family Provider Active Dr. Tomás Dickey MD Primary Care Provider Active Team Status: Active Member Role Status Dates Dr. Tomás Dickey MD Primary Care Provider Active VANESA De Jesus Other Provider Active Dr. Huber Lira DO Attending Provider Active Team Status: Inactive Member Role Status Dates Dr. Tomás Dickey MD Primary Care Provider Active VANESA De Jesus Attending Provider Active Team Status: Inactive Member Role Status Dates Dr. Tomás Dickey MD Primary Care Provider Active Dr. Brenda Godman , DO Emergency Provider Active Shell Plater Relationship Specialty Start Date End Date Tomás Dickey [address] [place] [address] PCP - General 04/16/19 Shell [employer]ater Relationship Specialty Start Date End Date Tomás Dickey [address] [place] [address] PCP - General 04/16/19 Shell Plater Relationship Specialty Start Date End Date Tomás Dickey MD PCP - General Family Medicine 12/19/16 Shell Plater Relationship Specialty Start Date End Date Tomás Dickey MD PCP - General Family Medicine 12/19/16 Shell Plater Relationship Specialty Start Date End Date Tomás Dickey MD PCP - General Family Medicine 12/19/16 Shell Plater Relationship Specialty Start Date End Date Tomás Dickey MD PCP - General Family Medicine 12/19/16 Shell Plater Relationship Specialty Start Date End Date Tomás Dickey MD PCP - General Family Medicine 12/19/16 Shell Plater Relationship Specialty Start Date End Date Tomás Dickey MD PCP - General Family Medicine 12/19/16 Shell Plater Relationship Specialty Start Date End Date Tomás Dickey MD PCP - General Family Medicine 12/19/16 Shell Plater Relationship Specialty Start Date End Date Tomás Dickey MD PCP - General Family Medicine 12/19/16 Shell Plater Relationship Specialty Start Date End Date Tomás Dickey MD PCP - General Family Medicine 12/19/16 Shell Plater Relationship Specialty Start Date End Date Tomás Dickey MD PCP - General Family Medicine 12/19/16 Shell Plater Relationship Specialty Start Date End Date Tomás Dickey MD PCP - General Family Medicine 12/19/16 Toya Wilkerson supervisor shuttle preparationBiomedical Equipment Tech Medicine 05/18/24 Shell Plater Relationship Specialty Start Date End Date Tomás Dickey MD PCP - General Family Medicine 12/19/16 Toya Wilkerson, supervisor shuttle preparationBiomedical Equipment Tech Medicine 05/18/24 Shell Plater Relationship Specialty Start Date End Date Tomás Dickey MD PCP - General Family Medicine 12/19/16 Toya Wilkerson, supervisor shuttle preparationBiomedical Equipment Tech Medicine 05/18/24 Shell Plater Relationship Specialty Start Date End Date Tomás Dickey MD PCP - General Family Medicine 12/19/16 Toya Wilkerson, supervisor shuttle preparationBiomedical Equipment Tech Medicine 05/18/24 Shell Plater Relationship Specialty Start Date End Date Tomás Dickey MD PCP - General Family Medicine 12/19/16 Toya Wilkerson, supervisor shuttle preparationBiomedical Equipment Tech Medicine 05/18/24 Shell Plater Relationship Specialty Start Date End Date Tomás Dickey MD PCP - General Family Medicine 12/19/16 Toya Wilkerson, supervisor shuttle preparationBiomedical Equipment Tech Medicine 05/18/24 Shell Plater Relationship Specialty Start Date End Date Tomás Dickey MD PCP - General Family Medicine 12/19/16 Toya Wilkerson, supervisor shuttle preparationBiomedical Equipment Tech Medicine 05/18/24 Shell Plater Relationship Specialty Start Date End Date Tomás Dickey MD PCP - General Family Medicine 12/19/16 Toya Wilkerson supervisor shuttle preparationBiomedical Equipment Tech Medicine 05/18/24 Shell Plater Relationship Specialty Start Date End Date Tomás Dickey MD PCP - General Family Medicine 12/19/16 Toya Wilkerson, supervisor shuttle preparationBiomedical Equipment Tech Medicine 05/18/24 Shell Plater Relationship Specialty Start Date End Date Tomás Dickey MD PCP - General Family Medicine 12/19/16 Toya Wilkerson supervisor shuttle preparationBiomedical Equipment Tech Medicine 05/18/24 Shell Plater Relationship Specialty Start Date End Date Tomás Dickey MD PCP - General Family Medicine 12/19/16 Toya Wilkerson, supervisor shuttle preparationBiomedical Equipment Tech Medicine 05/18/24 Shell Plater Relationship Specialty Start Date End Date Tomás Dickey MD PCP - General Family Medicine 12/19/16 Toya Wilkerson, supervisor shuttle preparationBiomedical Equipment Tech Medicine 05/18/24 Shell Plater Relationship Specialty Start Date End Date Tomás Dickey MD PCP - General Family Medicine 12/19/16 Toya Wilkerson, supervisor shuttle preparationBiomedical Equipment Tech Medicine 05/18/24 Shell Plater Relationship Specialty Start Date End Date Tomás Dickey MD PCP - General Family Medicine 12/19/16 Toya Wilkerson RN Biomedical Equipment Tech Medicine 05/18/24 Shell Plater Relationship Specialty Start Date End Date Tomás Dickey MD PCP - General Family Medicine 12/19/16 Toya Wilkerson RN Biomedical Equipment Tech Medicine 05/18/24 Shell Plater Relationship Specialty Start Date End Date Tomás Dickey MD PCP - General Family Medicine 12/19/16 Toya Wilkerson RN Biomedical Equipment Tech Medicine 05/18/24 Shell Plater Relationship Specialty Start Date End Date Tomás Dickey MD PCP - General Family Medicine 12/19/16 Shell Plater Relationship Specialty Start Date End Date Tomás Dickey MD PCP - General Family Medicine 12/19/16 Shell Plater Relationship Specialty Start Date End Date Tomás Dickey MD PCP - General Family Medicine 12/19/16 Shell Plater Relationship Specialty Start Date End Date Tomás Dickey MD PCP - General Family Medicine 12/19/16 Shell Plater Relationship Specialty Start Date End Date Tomás Dickey MD PCP - General Family Medicine 12/19/16 Shell Plater Relationship Specialty Start Date End Date Tomás Dickey MD PCP - General Family Medicine 12/19/16 Shell Plater Relationship Specialty Start Date End Date Tomás Dickey MD PCP - General Family Medicine 12/19/16 Shell Plater Relationship Specialty Start Date End Date Tomás Dickey MD PCP - General Family Medicine 12/19/16 Shell Plater Relationship Specialty Start Date End Date Tomás Dickey MD PCP - General Family Medicine 12/19/16 Shell Plater Relationship Specialty Start Date End Date Tomás Dickey MD PCP - General Family Medicine 12/19/16 Team Status: Active Member Role/Relationship Status Dates Dr. Tomás Dickey MD Primary Care Provider Active Team Status: Inactive Member Role/Relationship Status Dates Dr. Tomás Dickey MD Primary Care Provider Active Start: January 05, 2025 Dr. Deidra Mulligan MD Attending Provider Active Start: January 05, 2025 Team Status: Inactive Member Role/Relationship Status Dates Dr. Tomás Dickey MD Primary Care Provider Active Start: February 11, 2025 End: February 11, 2025 Dr. Isaiah Kumar MD Attending Provider Activ e Start: February 11, 2025 End: February 11, 2025 Dr. Isaiah Kumar MD Referring Provider Activ e Start: February 11, 2025 End: February 11, 2025 Care Team (unrecognized sect ion and content) Care Team Personnel Name: TOMÁS DICKEY MD Position: P4 Physician - Primary Care Member Role: Primary Care Physician Address: Address: [address] [place] [address]- Care Team Related Persons Name: AJAY ALARCON Name: LUAN ALARCON Address: [place] [id number] [place] [address] [place] Name: DONTE BEE Address: [facility] Address: [address] [id number] [place] Address: [place] [id number] Care Team Personnel Name: TOMÁS DICKEY MD Position: P4 Physician - Primary Care Med Service: Active Provider Member Role: Primary Care Physician Address: Address: [address] [place] [address]- Care Team Related Persons Name: AJAY ALARCON Name: LUAN ALARCON Address: Home [address] [place] [address] [place] Name: DONTE BEE Address: [facility] Address: [address] [id number] [place] Address: Temporary [address] [place], [place] [id number] Care Team Personnel Name: TOMÁS DICKEY MD Position: P4 Physician - Primary Care Member Role: Primary Care Physician Address: Address: [address] [place], [place] [address]- Care Team Related Persons Name: AJAY ALARCON Name: LUAN ALARCON Address: Home [id number] [place] [address] [place] Name: DONTE BEE Address: [facility] Address: [address] [id number] [place] Address: Temporary [address] [place], [place] [id number] Goals (unrecognized section and content) Goals may be documented in a n alternate section Reason for Visit (unrecogniz ed section and content) Reason Comments Hypertension Decreased Movement Transport from [facility] Specialty Diagnoses / Procedures Referred By Wally t Referred To Contact Diagnoses labor in second trimester without delivery Procedures . Bere Durant MD [address] [place] [address] Ach H[address] [place] [address] Referral ID Status Reason Start Date Expiration Date Visits Re quested Visits Authorized [id number] 1 1 Reason Onset Date Comments Appointment 04/24/2024 Reason Comments PRAF Reason Comments Appointment Reason Comments OB Transfer of Care Transfer of care 26 weeks 3 days. Specialty Diagnoses / Procedures Referred By Wally kumar Referred To Contact Diagnoses Chronic hypertension affecting History of seizures Neurofibromatosis, type 1 (von Recklinghausen's disease) ([facility]) Procedures CONSULT TO MATERNAL MEDI OFFICE/OUTPATIENT [facility] MDM 60 MINUTES Michell Avalos APRN.RACHEL [address] [address] Referral ID Status Reason Start Date Expiration Date V isits Requested Visits Authorized [id number] Closed PCP Requested Referral Auto-Generated Referral 04/29/2024 04/24/2025 1 1 Reason Onset Date Comments Care 05/12/2024 Immunizations 05/12/2024 Flu vaccination Reason Comments US Specialty Diagnoses / Procedures Referred By Wally kumar Referred To Contact [facility] Diagnoses 26 weeks gestation of Procedures OBSTETRIC ULTRASOUND WHI US PREG UTERUS AFTER 1ST TRIMEST GESTATION Michell Avalos APRN.RACHEL [address] [place] [address] [facility] [address] [place] [address] Referral ID Status Reason Start Date Expiration Date V isits Requested Visits Authorized [id number] Closed Auto-Generate d Referral 05/12/2024 07/07/2024 1 1 Reason Comments Clinical Update Medication Question Reason Comments Elevated BP Reason Onset Date Comments Refill Request 05/15/2024 Reason Comments Care Comanagement CHTN, h x seizure, neurofibromatosis type I Reason Comments Care Plan 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 Diagnoses Arnold-Chiari malformation (HCC) Supervision of other high risk pregnancies, second trimester Procedures BIOPHYSICAL PROFILE [facility] BIOPHYSICAL PROFILE NON-STRESS TESTING Michele Garland MD [address] [place] [address] [address] Referral ID Status Reason Start Date Expiration Date V isits Requested Visits Authorized [id number] Closed Auto-Generate d Referral 05/25/2024 05/25/2025 10 1 Reason Comments Clinical Symptoms Reason Comments Results MaterniT Genome Resu lts Reason Onset Date Comments Care 05/29/2024 Specialty Diagnoses / Procedures Referred By Wally kumar Referred To Contact [facility] Diagnoses Chronic hypertension affecting Procedures NON-STRESS TEST NON-STRESS TEST Jocelyn Botello MD [address] [place] [address] [place] [address] [place] [address] Referral ID Status Reason Start Date Expiration Date V isits Requested Visits Authorized [id number] Closed Auto-Generate d Referral 05/26/2024 05/26/2025 99 1 Reason Comments Family History Of Recommendations for Genetic Testing Reason Comments Induction Date Reason Comments Missed Appointment Reason Comments Early Reason Comments Patient Question Reason Comments Breast Problem Breast Feeding in NICU has oral thrush. Reason Onset Date Comments Insertion Of IUD 07/15/2024 Care Specialty Diagnoses / Procedures [facility] Referred To Contact [facility] Diagnoses Encounter for IUD insertion 2 weeks follow-up Procedures INSERT INTRAUTERINE DEVICE LEVONORGESTREL IU 52MG 5 YR INSERT INTRAUTERINE DEVICE Kofi Monreal APRN.NIKOLAS [address] [place] [address] [facility] [address] [place] [address] Referral ID Status Reason Start Date Expiration Date V isits Requested Visits Authorized [id number] Closed Auto-Generate d Referral 06/17/2024 06/17/2025 1 1 Reason Comments Care Scheduled Active and Recently Administ ered Medications (unrecognized section and content) Medication Order 04/21/2024 04/22/2024 04/23/2024 aspirin EC tablet 81 mg 81 mg, Oral, Daily, First dose on Sat04/18/24 at 1015, Do not crush, chew, or split. 0825 (Given - Provider: Taylor Coleman, MOHSE) 1120 (Given - Provider: Jasmine Durand RN - Comment: pt was NPO) 0825 (Given - Provider: Taylor Coleman RN) carbamide peroxide (Debrox) 6.5 % otic solution 5 drop 5 drop, Right Ear, 2 times daily, First dose on Sat04/21/24 at 1030 1430 (Given - Provider: Taylor Coleman RN)2108 (Given - Provider: Jannet Bliss RN) 1132 (Given - Provider: Jasmine Durand, MOSHE)2135 (Given - Provider: Cintia Frances, MOSHE) 0824 (Given - Provider: Taylor Coleman, MOSHE)2100 (Canceled Entry - Provider: Automatic Discharge Provider - Comment: Automatically canceled at discontinue of medication order) famotidine (Pepcid) tablet 20 mg 20 mg, Oral, 2 times daily, First dose on Sat04/19/24 at 0615 0824 (Given - Provider: Taylor Coleman, MOSHE)2046 (Given - Provider: Jannet Bliss, MOSHE) 1121 (Given - Provider: Jasmine Durand RN - Comment: pt was NPO)2140 (Given - Provider: Cintia Frances, MOSHE) 0825 (Given - Provider: Taylor Coleman, MOSHE)2100 (Canceled Entry - Provider: Automatic Discharge Provider - Comment: Automatically canceled at discontinue of medication order) fluticasone (Flonase) nasal spray 1 spray 1 spray, Each Nostril, 2 times daily, First dose on Sat04/20/24 at 1400, Shake gently. Before first use, prime pump (press 6 times until fine spray appears). After use, clean tip and replace cap. 0827 (Given - Provider: Taylor Coleman, MOSHE)211 (Given - Provider: Jannet Bliss, MOSHE) 1129 (Given - Provider: Jasmine Durand, MOSHE)214 (Given - Provider: Cintia Frances, MOSHE) 0824 (Given - Provider: Taylor Coleman RN)2100 (Canceled Entry - Provider: Automatic Discharge Provider - Comment: Automatically canceled at discontinue of medication order) labetalol (Normodyne) tablet 200 mg 200 mg, Oral, Every 8 hours, First dose (after last modification) on Sat04/22/24 at 1800 1804 (Given - Provider: Sho Lopez, MOSHE) 0145 (Given - Provider: Jannet Elmoer RN)0948 (Given - Provider: Taylor Coleman, MOSHE)1807 (Given - Provider: Taylor Coleman, MOSHE) labetalol (Normodyne,Trandate) injection 20 mg (COMPLETED) 20 mg, IntraVENous, Once, On Sat04/21/24 at 2045, For 1 dose 2038 (Given - Provider: Jannet Bliss, MOSHE) levETIRAcetam (Keppra) 100 MG/ML solution 1,000 mg 1,000 mg, Oral, Nightly, First dose (after last modification) on Sat04/18/24 at 2100 2057 (Given - Provider: Jannet Bliss, MOSHE) 214 (Given - Provider: Cintia Frances, MOSHE) 2100 (Canceled Entry - Provider: Automatic Discharge Provider - Comment: Automatically canceled at discontinue of medication order) nicotine (Nicoderm, Step 2) 14 MG/24HR patch 1 patch(Linked Group 1) 1 patch, TransDERmal, Administer over 24 Hours, Daily, First dose on Sat04/18/24 at 0900, For 42 days, Apply new patch to nonhairy, clean, dry skin on the upper body or upper outer arm. Rotate patch sites. Notify Pharmacy if patient or provider prefers patch to be removed at bedtime and replaced in the morning. 0824 (Medication Applied - Provider: Taylor Coleman RN) 0824 (Medication Removed - Provider: Jasmine Durand RN)1122 (Medication Applied - Provider: Jasmine Durand RN) 0824 (Medication Applied - Provider: Taylor Coleman RN)1900 (Due: Medication Removed - Provider: Automatic Discharge Provider - Comment: Time automatically adjusted from order being discontinued) nicotine (Nicoderm, Step 3) 7 MG/24HR patch 1 patch(Linked Group 1) 1 patch, TransDERmal, Administer over 24 Hours, Daily, First dose on Sat05/30/24 at 0900, For 14 days, Apply new patch to nonhairy, clean, dry skin on the upper body or upper outer arm. Rotate patch sites. Notify Pharmacy if patient or provider prefers patch to be removed at bedtime and replaced in the morning. NIFEdipine XL (Procardia XL) 24 hr tablet 30 mg (CANCELED) 30 mg, Oral, 2 times daily, First dose (after last modification) on Sat04/20/24 at 0900, Do not crush, chew, or split. 0824 (Given - Provider: Taylor Coleman RN) NIFEdipine XL (Procardia XL) 24 hr tablet 30 mg (COMPLETED) 30 mg, Oral, Once, On Sat04/21/24 at 1015, For 1 dose, Do not crush, chew, or split. 1128 (Given - Provider: Taylor Coleman RN) NIFEdipine XL (Procardia XL) 24 hr tablet 60 mg 60 mg, Oral, Daily, First dose on Sat04/22/24 at 0900, Do not crush, chew, or split. 1118 (Given - Provider: Jasmine Durand RN - Comment: pt was NPO) 08 (Given - Provider: Taylor Coleman RN) NIFEdipine XL (Procardia XL) 24 hr tablet 60 mg 60 mg, Oral, Nightly, First dose (after last modification) on Sat04/21/24 at 2100, Do not crush, chew, or split. 2054 (Given - Provider: Jannet Bliss RN) 2139 (Given - Provider: Cintia Frances RN) 2100 (Canceled Entry - Provider: Automatic Discharge Provider - Comment: Automatically canceled at discontinue of medication order) Non-Formulary Medication 1 Units, Oral, Daily, First dose on 04/19/24 at 0600, Drug Name: gummy vitamins, Form: chewable tablet, Length of Therapy: Indefinite, How soon needed? (normally 72 hrs needed to procure): 0-24 hrs, Reason for Non-Formulary: patient preference 0600 (Canceled Entry - Provider: Automatic Discharge Provider - Comment: Automatically canceled at discontinue of medication order) 1000 (Not Given - Provider: Jasmine Durand RN - Reason: Patient/family refused - Comment: Pt wants to take @ night) 0600 (Canceled Entry - Provider: Automatic Discharge Provider - Comment: Automatically canceled at discontinue of medication order) penicillin V (Veetid) tablet 500 mg 500 mg, Oral, 2 times daily, First dose on 04/19/24 at 0900, Suspected Indication (Select all that apply): Head and Neck Infection 0833 (Given - Provider: Taylor Coleman RN)2105 (Given - Provider: Jannet Bliss RN) 1134 (Given - Provider: Jasmine Durand RN - Comment: pt was NPO)2100 (Not Given - Provider: Cintia Frances RN - Reason: Patient/family refused) 0900 (Not Given - Provider: Taylor Coleman RN - Reason: Patient/family refused - Comment: does not want if not having procedure)2100 (Canceled Entry - Provider: Automatic Discharge Provider - Comment: Automatically canceled at discontinue of medication order) vitamin tablet 1 tablet, Oral, Daily, First dose (after last modification) on 04/18/24 at 0900 0900 (Not Given - Provider: Taylor Coleman RN - Reason: Other - Comment: does not want now) 0900 (Not Given - Provider: Jasmine Durand RN - Reason: Patient/family refused - Comment: Pt wants to take @ night) 0900 (Not Given - Provider: Taylor Coleman RN - Reason: Patient/family refused - Comment: wqdarrell mcmullen) sertraline (Zoloft) tablet 50 mg 50 mg, Oral, Daily, First dose on Sat04/21/24 at 0900 0825 (Given - Provider: Taylor Coleman RN) 1122 (Given - Provider: Jasmine Durand RN - Comment: pt was NPO) 0825 (Given - Provider: Taylor Coleman RN) sodium chloride 0.9% (NS) flush 10 mL 10 mL, IntraVENous, Every 12 hours scheduled (2 times per day), First dose on Sat04/17/24 at 2100 0900 (Not Given - Provider: Taylor Coleman RN - Reason: Other - Comment: no IV access)2100 (Canceled Entry - Provider: Automatic Discharge Provider - Comment: Automatically canceled at discontinue of medication order) 112 (Given - Provider: Jasmine Durand RN)2100 (Given - Provider: Cintia Frances RN) 0828 (Given - Provider: Taylor Coleman RN)2100 (Canceled Entry - Provider: Automatic Discharge Provider - Comment: Automatically canceled at discontinue of medication order) PRN Medication Order 04/21/2024 04/22/2024 04/23/2024 acetaminophen (Tylenol) tablet 650 mg 650 mg, Oral, Every 4 hours PRN, mild pain (1-3), Fever GREATER than 100.5 F (38 C), Starting on Sat04/17/24 at 1848, Maximum dose of acetaminophen is 4000 mg from all sources in 24 hours. 1211 (Given - Provider: Taylor Coleman RN)2046 (Given - Provider: Jannet Bliss, MOSHE) 1118 (Given - Provider: Jasmine Durand RN)2259 (Given - Provider: Jannet Elmore, MOSHE) 0950 (Given - Provider: Taylor Coleman RN) calcium carbonate (Tums) chewable tablet 500 mg 500 mg, Oral, Every 6 hours PRN, indigestion, heartburn, Starting on 04/18/24 at 2145 0620 (Given - Provider: Melani Montejo RN) calcium gluconate 10 % injection 1 g 1 g, IntraVENous, PRN, For suspected magnesium toxicity or for respiratory rate less than 6 per minute., Starting on 04/18/24 at 0459, Administer slow IV push over 5 minutes. diphenhydrAMINE (BENADryl) injection 25 mg 25 mg, IntraVENous, Every 6 hours PRN, itching, Starting on Sat04/22/24 at 0023 0047 (Given - Provider: Jannet Bliss, MOSHE) diphenhydrAMINE (BENADryl) tablet/capsule 25 mg 25 mg, Oral, Every 6 hours PRN, itching, Starting on 04/18/24 at 0641 0604 (Given - Provider: Melani Montejo RN) docusate sodium (Colace) capsule 100 mg 100 mg, Oral, 2 times daily PRN, constipation, Starting on 04/18/24 at 2142, 2nd line Do not crush or break. guaiFENesin (Mucinex) 12 hr tablet 600 mg 600 mg, Oral, 2 times daily PRN, cough, Starting on Sat04/17/24 at 2258, Administer with plenty of fluids to ensure proper action. Do not crush, chew, or split. 822 (Given - Provider: Taylor Coleman RN) ondansetron (Zofran) injection 4 mg(Linked Group 2) 4 mg, IntraVENous, Every 6 hours PRN, nausea, vomiting, Starting on Sat04/17/24 at 1848, 1st Line. Give IV if patient is unable to take orally. If inadequate response within 60 minutes, proceed to next-line agent or contact provider if no further options ordered. 2206 (Given - Provider: Jannet Bliss RN) ondansetron ODT (Zofran-ODT) disintegrating tablet 4 mg(Linked Group 2) 4 mg, Oral, Every 8 hours PRN, nausea, vomiting, Starting on Sat04/17/24 at 1848, 1st Line. If inadequate response within 60 minutes, proceed to next-line agent or contact provider if no further options ordered. Patient should allow tablet to dissolve on tongue. Do not remove from blister pack until just before administering. 2206 (See Alternative - Provider: Jannet Bliss, MOSHE) polyethylene glycol (PEG) 3350 (Miralax) packet 17 g 17 g, Oral, Daily PRN, constipation, Starting on 04/18/24 at 2142, 1st line sodium chloride 0.9 % infusion 5-250 mL/hr, IntraVENous, PRN, if patient receiving piggyback infusions and maintenance fluids are not ordered OR KVO fluids to protect IV site / prevent frequent line interruptions/ long duration, Starting on Sat04/17/24 at 1848, For piggyback infusion, administer at same rate as piggyback for a total of 25 mL. Enter 25 mL into dose field and piggyback rate into rate field of order. If piggyback is infusing at a rate less than 100 mL/hr, enter 25 mL into dose field and 100 mL/hr into rate field of order. For KVO fluids, enter rate of 20 mL/hr or less into rate field of order. sodium chloride 0.9% (NS) flush 10 mL 10 mL, IntraVENous, PRN, line care, Starting on Sat04/17/24 at 1848, After every IV line use Linked Groups Order Group 1: nicotine (Nicoderm, Step 2) 14 MG/24HR patch 1 patchJump to med 1 patch, TransDERmal, Administer over 24 Hours, Daily, First dose on 04/18/24 at 0900, For 42 days, Apply new patch to nonhairy, clean, dry skin on the upper body or upper outer arm. Rotate patch sites. Notify Pharmacy if patient or provider prefers patch to be removed at bedtime and replaced in the morning. Followed by nicotine (Nicoderm, Step 3) 7 MG/24HR patch 1 patchJump to med 1 patch, TransDERmal, Administer over 24 Hours, Daily, First dose on 05/30/24 at 0900, For 14 days, Apply new patch to nonhairy, clean, dry skin on the upper body or upper outer arm. Rotate patch sites. Notify Pharmacy if patient or provider prefers patch to be removed at bedtime and replaced in the morning. Group 2: ondansetron ODT (Zofran-ODT) disintegrating tablet 4 mgJump to med 4 mg, Oral, Every 8 hours PRN, nausea, vomiting, Starting on Sat04/17/24 at 1848, 1st Line. If inadequate response within 60 minutes, proceed to next-line agent or contact provider if no further options ordered. Patient should allow tablet to dissolve on tongue. Do not remove from blister pack until just before administering. Or ondansetron (Zofran) injection 4 mgJump to med 4 mg, IntraVENous, Every 6 hours PRN, nausea, vomiting, Starting on Sat04/17/24 at 1848, 1st Line. Give IV if patient is unable to take orally. If inadequate response within 60 minutes, proceed to next-line agent or contact provider if no further options ordered. Source Comments (unrecognize d section and content) In the event this informatio n is protected by the Federal Confidentiality of Alcohol and Drug Abuse Patient Records regulations: The Federal rules restrict any use of the information to criminally investigate or prosecute any alcohol or drug abuse patient.[facility] HospitalIn the event this information is protected by the Federal Confidentiality of Alcohol and Drug Abuse Patient Records regulations: The Federal rules restrict any use of the information to criminally investigate or prosecute any alcohol or drug abuse patient.[facility] HospitalIn the event this information is protected by the Federal Confidentiality of Alcohol and Drug Abuse Patient Records regulations: The Federal rules restrict any use of the information to criminally investigate or prosecute any alcohol or drug abuse patient.[facility] HospitalIn the event this information is protected by the Federal Confidentiality of Alcohol and Drug Abuse Patient Records regulations: The Federal rules restrict any use of the information to criminally investigate or prosecute any alcohol or drug abuse patient.[facility] HospitalIn the event this information is protected by the Federal Confidentiality of Alcohol and Drug Abuse Patient Records regulations: The Federal rules restrict any use of the information to criminally investigate or prosecute any alcohol or drug abuse patient.[facility] HospitalIn the event this information is protected by the Federal Confidentiality of Alcohol and Drug Abuse Patient Records regulations: The Federal rules restrict any use of the information to criminally investigate or prosecute any alcohol or drug abuse patient.[facility] HospitalIn the event this information is protected by the Federal Confidentiality of Alcohol and Drug Abuse Patient Records regulations: The Federal rules restrict any use of the information to criminally investigate or prosecute any alcohol or drug abuse patient.[facility] HospitalIn the event this information is protected by the Federal Confidentiality of Alcohol and Drug Abuse Patient Records regulations: The Federal rules restrict any use of the information to criminally investigate or prosecute any alcohol or drug abuse patient.[facility] HospitalIn the event this information is protected by the Federal Confidentiality of Alcohol and Drug Abuse Patient Records regulations: The Federal rules restrict any use of the information to criminally investigate or prosecute any alcohol or drug abuse patient.[facility] HospitalIn the event this information is protected by the Federal Confidentiality of Alcohol and Drug Abuse Patient Records regulations: The Federal rules restrict any use of the information to criminally investigate or prosecute any alcohol or drug abuse patient.[facility] HospitalIn the event this information is protected by the Federal Confidentiality of Alcohol and Drug Abuse Patient Records regulations: The Federal rules restrict any use of the information to criminally investigate or prosecute any alcohol or drug abuse patient.[facility] HospitalIn the event this information is protected by the Federal Confidentiality of Alcohol and Drug Abuse Patient Records regulations: The Federal rules restrict any use of the information to criminally investigate or prosecute any alcohol or drug abuse patient.[facility] HospitalIn the event this information is protected by the Federal Confidentiality of Alcohol and Drug Abuse Patient Records regulations: The Federal rules restrict any use of the information to criminally investigate or prosecute any alcohol or drug abuse patient.[facility] HospitalIn the event this information is protected by the Federal Confidentiality of Alcohol and Drug Abuse Patient Records regulations: The Federal rules restrict any use of the information to criminally investigate or prosecute any alcohol or drug abuse patient.[facility] HospitalIn the event this information is protected by the Federal Confidentiality of Alcohol and Drug Abuse Patient Records regulations: The Federal rules restrict any use of the information to criminally investigate or prosecute any alcohol or drug abuse patient.[facility] HospitalIn the event this information is protected by the Federal Confidentiality of Alcohol and Drug Abuse Patient Records regulations: The Federal rules restrict any use of the information to criminally investigate or prosecute any alcohol or drug abuse patient.[facility] HospitalIn the event this information is protected by the Federal Confidentiality of Alcohol and Drug Abuse Patient Records regulations: The Federal rules restrict any use of the information to criminally investigate or prosecute any alcohol or drug abuse patient.[facility] HospitalIn the event this information is protected by the Federal Confidentiality of Alcohol and Drug Abuse Patient Records regulations: The Federal rules restrict any use of the information to criminally investigate or prosecute any alcohol or drug abuse patient.[facility] HospitalIn the event this information is protected by the Federal Confidentiality of Alcohol and Drug Abuse Patient Records regulations: The Federal rules restrict any use of the information to criminally investigate or prosecute any alcohol or drug abuse patient.[facility] HospitalIn the event this information is protected by the Federal Confidentiality of Alcohol and Drug Abuse Patient Records regulations: The Federal rules restrict any use of the information to criminally investigate or prosecute any alcohol or drug abuse patient.[facility] HospitalIn the event this information is protected by the Federal Confidentiality of Alcohol and Drug Abuse Patient Records regulations: The Federal rules restrict any use of the information to criminally investigate or prosecute any alcohol or drug abuse patient.[facility] HospitalIn the event this information is protected by the Federal Confidentiality of Alcohol and Drug Abuse Patient Records regulations: The Federal rules restrict any use of the information to criminally investigate or prosecute any alcohol or drug abuse patient.[facility] HospitalIn the event this information is protected by the Federal Confidentiality of Alcohol and Drug Abuse Patient Records regulations: The Federal rules restrict any use of the information to criminally investigate or prosecute any alcohol or drug abuse patient.[facility] HospitalIn the event this information is protected by the Federal Confidentiality of Alcohol and Drug Abuse Patient Records regulations: The Federal rules restrict any use of the information to criminally investigate or prosecute any alcohol or drug abuse patient.[facility] HospitalIn the event this information is protected by the Federal Confidentiality of Alcohol and Drug Abuse Patient Records regulations: The Federal rules restrict any use of the information to criminally investigate or prosecute any alcohol or drug abuse patient.[facility] HospitalIn the event this information is protected by the Federal Confidentiality of Alcohol and Drug Abuse Patient Records regulations: The Federal rules restrict any use of the information to criminally investigate or prosecute any alcohol or drug abuse patient.[facility] HospitalIn the event this information is protected by the Federal Confidentiality of Alcohol and Drug Abuse Patient Records regulations: The Federal rules restrict any use of the information to criminally investigate or prosecute any alcohol or drug abuse patient.[facility] HospitalIn the event this information is protected by the Federal Confidentiality of Alcohol and Drug Abuse Patient Records regulations: The Federal rules restrict any use of the information to criminally investigate or prosecute any alcohol or drug abuse patient.[facility] HospitalIn the event this information is protected by the Federal Confidentiality of Alcohol and Drug Abuse Patient Records regulations: The Federal rules restrict any use of the information to criminally investigate or prosecute any alcohol or drug abuse patient.[facility] HospitalIn the event this information is protected by the Federal Confidentiality of Alcohol and Drug Abuse Patient Records regulations: The Federal rules restrict any use of the information to criminally investigate or prosecute any alcohol or drug abuse patient.[facility] HospitalIn the event this information is protected by the Federal Confidentiality of Alcohol and Drug Abuse Patient Records regulations: The Federal rules restrict any use of the information to criminally investigate or prosecute any alcohol or drug abuse patient.[facility] HospitalIn the event this information is protected by the Federal Confidentiality of Alcohol and Drug Abuse Patient Records regulations: The Federal rules restrict any use of the information to criminally investigate or prosecute any alcohol or drug abuse patient.[facility] HospitalIn the event this information is protected by the Federal Confidentiality of Alcohol and Drug Abuse Patient Records regulations: The Federal rules restrict any use of the information to criminally investigate or prosecute any alcohol or drug abuse patient.[facility] HospitalIn the event this information is protected by the Federal Confidentiality of Alcohol and Drug Abuse Patient Records regulations: The Federal rules restrict any use of the information to criminally investigate or prosecute any alcohol or drug abuse patient.[facility] ClinicIn the event this information is protected by the Federal Confidentiality of Alcohol and Drug Abuse Patient Records regulations: The Federal rules restrict any use of the information to criminally investigate or prosecute any alcohol or drug abuse patient.[facility] HospitalIn the event this information is protected by the Federal Confidentiality of Alcohol and Drug Abuse Patient Records regulations: The Federal rules restrict any use of the information to criminally investigate or prosecute any alcohol or drug abuse patient.[facility] HospitalIn the event this information is protected by the Federal Confidentiality of Alcohol and Drug Abuse Patient Records regulations: The Federal rules restrict any use of the information to criminally investigate or prosecute any alcohol or drug abuse patient.[facility] HospitalIn the event this information is protected by the Federal Confidentiality of Alcohol and Drug Abuse Patient Records regulations: The Federal rules restrict any use of the information to criminally investigate or prosecute any alcohol or drug abuse patient.[facility] HospitalIn the event this information is protected by the Federal Confidentiality of Alcohol and Drug Abuse Patient Records regulations: The Federal rules restrict any use of the information to criminally investigate or prosecute any alcohol or drug abuse patient.[facility] FOR RECORDS PERTAINING TO PATIENTS WHO ARE OR HAVE BEEN ENROLLED IN A CHEMICAL DEPENDENCY/SUBSTANCEABUSE PROGRAM, SOME INFORMATION MAY BE OMITTED. This clinical summary was aggregated from multiple sources. Caution should be exercised in using it in the provision of clinical care. This summary normalizes information from multiple sources, and as a consequence, information in this document may materially change the coding, format and clinical context of patient data. In addition, data may be omitted in some cases. CLINICAL DECISIONS SHOULD BE BASED ON THE PRIMARY CLINICAL RECORDS. [facility] [employer] [facility] provides no warranty or guarantee of the accuracy or completeness of information in this document.
[2025-02-28 19:16] VITALS: BP 144/116; PULSE 105; RESP 16; TEMP 36.9; O2SAT 97
== END 2025-02-28 18:54 | disposition home or self-care (01) ==
PROVIDERS: Emergency Provider Emergency Medicine; PCP Family Medicine; Visit Provider Emergency Medicine
DX: S93.401A Sprain of unspecified ligament of right ankle, initial encounter (principal); Q85.00 Neurofibromatosis, unspecified; I10 Essential (primary) hypertension; F17.290 Nicotine dependence, other tobacco product, uncomplicated; X50.9XXA Other and unspecified overexertion or strenuous movements or postures, initial encounter
CPT/HCPCS: 73610; 73630; 99282

== ENCOUNTER 2025-05-18 08:11 | Day surgery (SDC) | payer MEDICAID, SELFPAY ==
[2025-05-18] VITALS (15 sets, daily range): BP systolic 142–176; BP diastolic 92–109; PULSE 67–97; RESP 14–16; TEMP 36.1–37.7; O2SAT 93–97; BMI 30.9
[2025-05-18] MEDS: Lactated Ringers 1,000 ML 15 ML IV ×2 (08:57→12:16)
[2025-05-18 09:01] LABS: Internal QC Validated? YES +Cl - CLEAR BKGD; Pregnancy, Urine Negative Negative; Record Kit Lot#,Urine Preg 980607
--- NOTE | 2025-05-18 09:38 | DCINST_ITS ---
Discharge Instructions DC O2, CPAP, BIPAP needs Home O2 Discharge instructions: No Dressing / Incision Discharge Activity: Return to Normal Activity Dressing / Incision Call your doctor if your incision/area has: Sudden Increased Bleeding Additional Dressing/Incision Instructions:: nasal saline to both nostrils 5-6 times/day Follow Up Care Please Follow Up With: Anthony Gallo MD When: 1 week Test Results: Test results from this visit will be discussed in further detail at your follow- up appointment, if applicable. Discharge Plan Admission Attending Provider: Anthony Gallo Primary Care Provider: Olvin Dickey Instructions Print Language: American Discharge Orders/Prescriptions Prescriptions: No Action albuterol sulfate 90 mcg/actuation HFA aerosol inhaler 1 inh INHALATION Q8H PRN (Reason: asthma) Patient Comments: inhale 2 puffs by mouth every 6 hours alprazolam 2 mg tablet 2 mg PO TID fluticasone propionate 50 mcg/actuation spray,suspension 2 spray INTRANASAL DAILY ferrous sulfate [Feosol] 325 mg (65 mg iron) tablet 325 mg PO QDAY Referrals / Follow Up: Olvin Dickey MD [Primary Care Provider, Family Practice] Disposition Disposition (needs filled in before D/C Order can be placed): Home, Self Care
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
[2025-05-18] MEDS: Midazolam 2 MG/2 ML Syringe IV (10:12)
[2025-05-18] MEDS: Lidocaine 1% (5 ml sdv) 5 ML Vial IV (10:18)
[2025-05-18] MEDS: fentaNYL 100 MCG/2 ML Ampul IV (10:18)
[2025-05-18] MEDS: Oxymetazoline 0.05% 1 SPRAY SPRAY.BTL 15 SPRAY ×2 (11:04)
--- NOTE | 2025-05-18 11:38 | PCM.OPRPT ---
Operative Report (Standard) Operative Information Date of Procedure: 05/18/25 Pre-Operative Diagnosis: chronic pansinusitis Post-Operative Diagnosis: chronic pansinusitis Surgery/Procedure Performed: 1. endoscopic maxillary antrostomy, left 2. endoscopic anterior ethmoidectomy, left classified advertising supervisor: No Type of Anesthesia: General RN Documented Start/Stop Times: Operation Date: 05/18/25 10:00 Case Time Into Pre-Op 05/18/25 08:22 Procedure Start Time: 11:00 Procedure Stop Time: 11:39 Select all DRAINS/GRAFTS/IMPLANTS that apply: None Estimated Blood Loss: 10cc Specimen collected: No Description of surgery: On the day of the procedure, after appropriate informed consent was obtained, the patient was brought to the operating room and placed in a supine position on the operating room table.? The patient was placed under general endotracheal anesthesia by the anesthesiologist.? The endotracheal tube was secured.? The eyes were taped.? The table was rotated 90 degrees towards the surgeon.? Lacri-Lube was placed in the eyes; image CT guidance navigation was set up and accuracy was confirmed. the zero degree endoscope was used to evaluate the left nasal cavity.? the superior attachment of the right and left middle turbinate and uncinate processes were injected with lidocaine/epinephrine.? the left nasal cavity was evaluated.? the middle turbinate was medialized.? a maxillary antrostomy and uncinectomy were performed with a emery elevator and a jose antonio cut.? the antrostomy was widened with a back-biter.? purulent material was evacuated.? the ethmoid bulla was entered bluntly with the suction.? an anterior ethmoidectomy was performed with a curette and an upgoing blakesley. of note, the patient's mucosa was very hyperemic. additionally, her diastolic blood pressure was > 100 despite anesthesia efforts to bring it down. more time was given in order to control the blood pressure. the right nasal cavity was evaluated. the patient had an obvious chronic right maxillary infections process. This was not present on imaging in 2018. There was certain possiblity that this was an expansile odontogenic cyst, as her nasal exam was dramatically worse than roughly two weeks ago. any attempts to slide an olive tip into the maxillary sinus were repeatedly unsuccessful given relentless bleeding. additionally, her blood pressure increased to 190/140. it was deemed necessary at this point to stop the procedure. pledgets were placed, hemostasis was achieved. anesthesia was alerted and started nitroglycerin. she was transferred to the PACU in stable condition. Surgical Findings: n/a Complications Complications: Yes Complication Details: hypertension
--- NOTE | 2025-05-18 11:54 | PCM.POST.ANE ---
Anesthesia: Postop Eval I Current Vital Signs Temperature: 98.4 F Pulse Rate: 89 Blood Pressure: 142/94 Respiratory Rate: 16 Pulse Ox: 93 Oxygen Delivery Method: Room Air Assessment Airway patent: Yes Spontaneous unlabored respirations: Yes Mental status: Awake and Calm nausea: No Vomiting: No Anesthesia Complication: No Fluid Hydration Crystalloid volume administer (ml): 800 Total IV fluid infused: 800 Progress Note Anesthesia document: Postop Eval 1 completed: Yes
--- NOTE | 2025-05-18 15:34 | POSTOPAN2_ITS ---
Anesthesia Postop Eval I Sum Postop Eval Completion status Anesthesia document: Postop Eval 1 completed: Yes Anesthesia Postop Eval I Summary Anesthesia Postop Eval I Summary: Anesthesia Postop Eval I: Assessment Summary Airway patent Yes 05/18/25 11:54 BUSINESS [email or web address] Spontaneous unlabored Yes 05/18/25 11:54 BUSINESS SYSTEMS [email or web address] respirations Mental status Awake,Calm 05/18/25 11:54 BUSINESS [email or web address] nausea No 05/18/25 11:54 BUSINESS [email or web address] Vomiting No 05/18/25 11:54 BUSINESS SYSTEMS [email or web address] Anesthesia Postop Eval I: Fluid Summary Crystalloid volume administer 800 05/18/25 11:54 BUSINESS SYSTEMS [email or web address].[email or web address] (ml) Colloids volume administered ( ml) Blood Product volume administered (ml) Total IV fluid infused 800 05/18/25 11:54 BUSINESS [email or web address] Anesthesia Postop Eval I: Summary Notes Anesthesia Complication No 05/18/25 11:54 BUSINESS [email or web address].[email or web address] Anesthesia Complication Comment: Post-operative progress note Anesthesia: Postop Eval II Evaluation Mental status: Awake Pain Level: 0 nausea: No Vomiting: No Progress Note Post-operative progress note: Patient hypertensive upon emergence from anesthesia, BPs 180/120. Patient required nitroglycerin boluses to lower BP. The surgery aborted due to high diastolic pressure intraoperatively, causing bleeding. Patient states she is not on any BP medications, although carries HTN dx. Patient BP in PACU Phase 2 143/93, which is close to her baseline. I advised the patient postoperatively, that she needs to see her PCP and start on medication as soon as possible, as she is at risk for stroke or [place]. Patient states that due to insurance and ride issues, she is unable to see a PCP. I advised the patient strongly that it is important that she finds a way to see a physician to be started on an antihypertensive. The patient voiced understanding. Opportunity for questions illicitied. Complications Anesthesia Complication: No
== END 2025-05-18 14:18 | disposition home or self-care (01) ==
LOC: SDC 08:14 → AC 08:16
PROVIDERS: Student in an Organized Health Care Education/Training Program; PCP Family Medicine; Referring Provider Otolaryngology; Visit Provider Otolaryngology
PROC: (CPT 31256; principal; 2025-05-18 09:30)
DX: J32.4 Chronic pansinusitis (principal); J30.9 Allergic rhinitis, unspecified; I10 Essential (primary) hypertension; I97.3 Postprocedural hypertension; Y83.8 Other surgical procedures as the cause of abnormal reaction of the patient, or of later complication, without mention of misadventure at the time of the procedure; F17.290 Nicotine dependence, other tobacco product, uncomplicated
CPT/HCPCS: 31256; 31254; 00160; 81025; J2405